=== PATIENT | female | born 1990 | race Caucasian/White ===

== ENCOUNTER 2021-11-13 18:33 | Outpatient (CLI) | payer BC, OTHER, SELFPAY ==
[2021-11-13 21:34] LABS: TSH With Reflex to FT4* 0.912 uIU/mL (0.270-4.200)
[2021-11-15 21:08] LABS: Estradiol Premenol Female 110 pg/mL
[2021-11-15 23:57] LABS: Prolactin 9.8 ng/mL (2.8-29.2)
[2021-11-16 01:15] LABS: Follicle Stimulating Hormone 8.3 IU/L
[2021-11-22 11:32] LABS: Sex Hormone Binding Globulin 24 nmol/L (25-122); Testosterone, Free LC-MS/MS 16.8 pg/mL (0.8-7.4); Testosterone, LC-MS/MS 86 ng/dL (9-55)
== END 2021-11-13 18:34 | disposition home or self-care (01) ==
PROVIDERS: Visit Provider Physician Assistant
DX: N91.2 Amenorrhea, unspecified (principal); E66.9 Obesity, unspecified
CPT/HCPCS: 82670; 83001; 84146; 84270; 84402; 84403; 84443

== ENCOUNTER 2021-11-15 08:57 | Outpatient (CLI) | payer BC, OTHER, SELFPAY ==
--- NOTE | 2021-11-15 09:15 | CRLHL7_ITS ---
For Patients: As a result of the Century Cures Act, medical imaging exams and procedure reports are released immediately into your electronic medical record. You may view this report before your referring provider. If you have questions, please contact your health care provider. INDICATION: AMENORRHEA COMPARISON: none TECHNIQUE: 2D gay scale and color Doppler images were acquired of the pelvis using a transabdominal and transvaginal approach. FINDINGS: Sonographic images demonstrate a normal size and smooth outer contour of the uterus. Uterus measures 8.6 cm in length by 4.8 cm in AP diameter by 4.5 cm in transverse dimension. The myometrium has a normal uniform echotexture. Intrauterine device located within the endometrial canal. A small cervical nabothian cyst is incidentally noted. The right ovary measures 3.7 x 2.7 x 2.6 cm in size and the left ovary measures 3.4 x 2.4 x 2.4 cm. The ovaries demonstrate normal arterial and venous blood flow on color Doppler analysis. There are no suspicious fluid collections within the cul-de-sac. IMPRESSION: Intrauterine device is located in good position within the endometrial canal. Dictated by Piyush Drake MD @ 11/15/2021 10:36:31 AM (Electronically Signed)
--- OUTSIDE RECORDS SUMMARY | 2021-11-21 03:12 | XMS_ITS | Encounter Summary ---
:1990 Author Organization [facility] Address [address] [place] [address] Care Team Providers Name Role Phone Gabrielle Jara M.D. Primary Care Provider Reason for Visit Reason Comments Follow-up Outpatient (Routine) - Closed Specialty Diagnoses / Procedures Referred By Contact Refer red To Contact Obstetrics and Kristine Gonzalez, CUTTER ALUMIN[employer] SHEET, [facility] Gynecology [address] [phone] Referral ID Status Reason Start Date Expiration Date Visits Requ ested Visits Authorized [id number] Closed 05/24/2021 05/24/2022 1 1 Encounter Details Date Type Department Care Team Description 08/02/2021 Office Visit Department of Kristine Gonzalez, Surveillance Intrauterine Device (Primary Dx); Obstetrics and TREVER, [facility] Secondary Amenorrhea Gynecology in [address] [address] [place], [place] [phone] (Work) [phone] Social History Tobacco Use Types Packs/Day Years [...] Pulse 81 08/02/2021 2:11 PM CDT Temperature - - Respiratory Rate - - Oxygen Saturation - - Inhaled Oxygen Concentration - - Weight - - Height - - Body Mass Index - - documented in this encounter Progress Notes Kristine Gonzalez, TREVER, C.N.P. - 08/02/2021 2:15 PM CDT SUBJECTIVE CHIEF COMPLAINT/REASON FOR VISIT Chief Complaint Patient presents with ??? Follow-up HISTORY OF PRESENT ILLNESS Cherry is a 31 y.o. female here for IUD check. She has had the ParaGard IUD in place now for 3 months. She does not have any cramping or pain. Is doing well with the IUD. She has not, however, had aperiod since the IUD was placed. She has no symptoms of . Did have symptoms like she was going to get her period once or twice, but nothing. She has not taken a home test. She was using OCPS prior to the IUD placement, regular menses with the OCPs. She wanted off of hormones due to mood instability. She does see a therapist as well, but is feeling that her moods are very stable at this time. PROBLEM LIST: Patient Active Problem List Diagnosis ??? Atrophic Kidney ??? Hydronephrosis ??? Obstruction Ureteral Congenital ??? Obstruction Ureter ??? Surveillance Intrauterine Device No Known Allergies OBJECTIVE VITAL SIGNS BP 130/87 Pulse 81 PHYSICAL EXAMINATION General: No apparent distress. STONE FINISHER: External Genitalia : No lesions. BUS: No lesions. Vagina: Normal appearing discharge, no lesions. Pelvic Floor: Nontender. Bladder: Not enlarged, nontender. Cervix: No lesions, no bleeding, IUD strings visible. no cervical motion tenderness. Uterus: anteverted, not enlarged nor tender. Adnexa: Ovaries not enlarged nor tender. Anus: no hemorrhoids, no lesions. Rectovaginal Exam: Not indicated. ASSESSMENT / PLAN #1 Surveillance Intrauterine Device IUD strings noted with exam. Pelvic exam normal Secondary amenorrhea since IUD placement. I suspect that the OCP use was effectively causing a monthly withdrawal bleed. (She remembers regular menses prior to OCP use though) test today. Rx given for provera withdrawal test. Consider use every 1-3 months ongoing if effective. She will message me through the patient online services portal with results Consider additional workup as needed. #2 Secondary Amenorrhea - Test, POCT, Urine (lab) Other orders - medroxyPROGESTERone (PROVERA) 5 mg tablet; Take 1 tablet (5 mg total) by mouth daily for 7 days., Starting Thais 08/02/2021, Until Thais 08/09/2021, Normal documented in this encounter Plan of Treatment Not on filedocumented as of this encounter Procedures Procedure Name Priority Date/Time Associated Diagnosis Comme nts TEST, Routine 08/02/2021 2:40 PM Secondary Amenorrhe a Results for this POCT, U (LAB) CDT procedure are in the results section. documented in this encounter Results Test, POCT, Urine (lab) (08/02/2021 2:40 PM CDT) P athologist Signature Negative 08/02/2021 CNFL Test, POCT, U 3:10 PM CDT Specimen Anatomical Collection Method Collection Time Receive d Time (Source) Location / / Volume Laterality Urine (Urine, 08/02/2021 2:40 PM 08/03/19 2:54 Clean Catch) CDT PM CDT EVELIO Hernández APRN- LAB POCT ORDERABLES - DEVIC E Performing Organization Address City/State/ZIP Code Phon e Number [facility]- [address] [place] [id number] [place] [address] System [address] documented in this encounter Visit Diagnoses Diagnosis Surveillance Intrauterine Device - Prima ry Secondary Amenorrhea documented in this encounter Care Teams Bounty Hunter Relationship Specialty Start Date End Date Gabrielle Jara M.D. PCP - General Family Medicine 10/04/[address] [place] [address] documented as of this encounter
== END 2021-11-15 08:58 | disposition home or self-care (01) ==
LOC: US 08:58
PROVIDERS: Visit Provider Physician Assistant
DX: N91.2 Amenorrhea, unspecified (principal)
CPT/HCPCS: 76830; 76856

== ENCOUNTER 2021-11-15 18:50 | Outpatient (CLI) | payer BC, OTHER, SELFPAY ==
[2021-11-15 12:42] LABS: Cholesterol* 179 mg/dL (90-199)
[2021-11-15 12:43] LABS: Glucose* 94 mg/dL (60-115); HDL Cholesterol* 34 mg/dL (>=50); LDL Cholesterol Calculated 118 mg/dL (<100); Triglycerides* 135 mg/dL (40-149)
[2021-11-19 10:31] LABS: 17-Hydroxyprogesterone HPLC 96.08 ng/dL (<=206.00)
--- OUTSIDE RECORDS SUMMARY | 2021-11-21 03:02 | XMS_ITS | Encounter Summary ---
:1990 Author Organization [facility] Address [address] [place] [address] Care Team Providers Name Role Phone Gabrielle Jara M.D. Primary Care Provider Encounter Details Date Type Department Care Team Description 03/10/2020 Orders Only [facility] - Gabrielle Carrion M.D. [address] [facility] [address] [facility] [address] [place] [address] JAE KAYE [address] [phone] Social History Tobacco Use Types Packs/Day Years Used Date Smoking Tobacco: Former Smokeless Tobacco: Never Alcohol Use Standard Drinks/Week Comments Yes 0 (1 standard drink = 0.6 oz pure alcoho l) Holidays, 3 times monthly Alcohol Habits Answer Date Recorded How often do you have a drink containing Not asked alcohol? How many drinks containing alcohol do you Not asked have on a typical day when you are drinking? How often do you have six or more drinks on Not asked one occasion? Comment: Holidays, 3 times monthly 08/10/2018 Sex Assigned at Date Recorded Not on file documented as of this encounter Plan of Treatment Not on filedocumented as of this encounter Visit Diagnoses Not on filedocumented in this encounter Care Teams Interlocking And Signal Mechanic Relationship Specialty Start Date End Date Gabrielle Jara M.D. PCP - General Family Medicine 10/04/13 [address] [place] [phone] documented as of this encounter
--- OUTSIDE RECORDS SUMMARY | 2021-11-21 03:02 | XMS_ITS | Encounter Summary ---
:1990 Author Organization [facility] Address [address] [place] [address] Care Team Providers Name Role Phone Gabrielle Jara M.D. Primary Care Provider Reason for Referral Outpatient (Routine) - Closed Specialty Diagnoses / Procedures Referred By Contact Refer red To Contact Family Medicine Gabrielle Jara M. D. [facility] [address] [place] [phone] Referral ID Status Reason Start Date Expiration Date Visits Requ ested Visits Authorized [id number] Closed 11/29/2019 11/28/2020 1 1 Encounter Details Date Type Department Care Team Description 11/29/2019 Orders Only [facility] Gabrielle Jara M.D. [address] [place] [phone] (Wo rk) Social History Tobacco Use Types Packs/Day Years [...] as of this encounter Plan of Treatment Scheduled Referrals Name Type Priority Associated Diagnoses Order S chedule Family Medicine Outpatient Referral Routine Expec miranda: office visit 12/13/2019, (clinic) Expires: 11/28/2022 documented as of this encounter Visit Diagnoses Not on filedocumented in this encounter Care Teams Compensation Supervisor Relationship Specialty Start Date End Date Gabrielle Jara M.D. PCP - General Family Medicine 10/04/13 [address] [place] [address] documented as of this encounter
--- OUTSIDE RECORDS SUMMARY | 2021-11-21 03:02 | XMS_ITS | Encounter Summary ---
:1990 Author Organization [facility] Address [address] [place] [address] Care Team Providers Name Role Phone Gabrielle Jara M.D. Primary Care Provider Reason for Visit Reason Comments Med Refill Encounter Details Date Type Department Care Team Description 03/01/2019 Refill Department of Obstetrics and Gonzalez, Kristine Cortez APRN, Med Refill Gynecology in [address] [place] [phone] [place] [address] [phone] Social History Tobacco Use Types Packs/Day Years [...] on filedocumented in this encounter Care Teams Clinical Data Coordinator Relationship Specialty Start Date End Date Gabrielle Jara M.D. PCP - General Family Medicine 10/04/13 [address] [place] [address] documented as of this encounter
--- OUTSIDE RECORDS SUMMARY | 2021-11-21 03:02 | XMS_ITS | Encounter Summary ---
:1990 Author Organization [facility] Address [address] [place] [address] Care Team Providers Name Role Phone Gabrielle Jara M.D. Primary Care Provider Reason for Visit Reason Comments Sinusitis Encounter Details Date Type Department Care Team Description 01/22/2021 Nurse Triage Department of [facility], Caron James Medicine, [facility] MPedroSDeepali, R. N. [facility], in [address] [place] [address] [address] [address] [place] [address] [phone] Social History Tobacco Use Types Packs/Day Years [...] on file documented as of this encounter Miscellaneous Notes Telephone Encounter - Rona Sun R.N. - 01/22/2021 3:19 PM CDT Patient notified. Telephone Encounter - Peyton Mendoza M.S.N., R.N. - 01/22/2021 9:47 AM CDT Chief Complaint / Reason for Call Patient is a 30 y.o. female calling regarding Sinusitis. Assessment Concern: Thick green nasal drainage, pressure in the forehead and cheekbones. Started 2 weeks ago, seemed to be improving and then worse again. Present for: 2 weeks Home cares tried: Nasal saline spray, humidifier, Tylenol, Ibuprofen Calling to request: Treatment The recommended disposition is other. 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 documented in this encounter Plan of Treatment Not on filedocumented as of this encounter Visit Diagnoses Not on filedocumented in this encounter Care Teams Iron [employer] Steel Work Supervisor Relationship Specialty Start Date End Date Gabrielle Jara M.D. PCP - General Family Medicine 10/04/13 [address] [place] [address] documented as of this encounter
--- OUTSIDE RECORDS SUMMARY | 2021-11-21 03:02 | XMS_ITS | Encounter Summary ---
:1990 Author Organization [facility] Address [address] [place] [address] Care Team Providers Name Role Phone Gabrielle Jara M.D. Primary Care Provider Encounter Details Date Type Department Care Team Description 03/10/2020 Orders Only [facility] - Sulma Domínguez [address] [facility] [phone] (W ork) [address] [place] [address] Social History Tobacco Use Types Packs/Day Years [...] on filedocumented in this encounter Care Teams Truck Safety Inspector Relationship Specialty Start Date End Date Gabrielle Jara M.D. PCP - General Family Medicine 10/04/13 [address] [place] [address] documented as of this encounter
--- OUTSIDE RECORDS SUMMARY | 2021-11-21 03:02 | XMS_ITS | Clinical Summary ---
:1990 Author Organization [facility] Address [address] [place] [address] Care Team Providers Name Role Phone Gabrielle Jara M.D. Primary Care Provider Source Comments Patient records contain information from all sites at [facility]. For routine questions regarding patient records, call [phone] during business hours, M-F 8:00 AM - 5:00 PM Central Time. Record requests for emergency care only can be directed to [phone] at any time.[facility] Allergies No known active allergies Medications Medication Sig Dispensed Refills Start Date End Date Status acetaminophen (TYLENOL) Take 2 capsules 0 09/12/2018 Active 500 mg capsule (1,000 mg total) by mouth every 6 (six) hours as needed for pain. Can forklift picker over the counter cyanocobalamin (VITAMIN Take 500 mcg by 0 Active B12) 500 mcg tablet mouth. magnesium 250 mg tablet Take 1 tablet by 0 Active mouth. B complex-vitamin (SUPER Take 1 capsule by 0 Active B-50) capsule mouth daily. ergocalciferol (DRISDOL) Take 50,000 Units 0 Active 50,000 Unit capsule by mouth once a week. ascorbic acid, vitamin Take 700 mg by 0 Active C, (VITAMIN C) 1,000 mg mouth 2 (two) tablet times a day. zinc acetate (GALZIN) 25 Take 30 mg by 0 Active mg (zinc) capsule mouth daily. copper (PARAGARD) IUD 1 each by 0 Active intrauterine route continuously. medroxyPROGESTERone Take 1 tablet (5 7 tablet 0 08/02/2021 Active (PROVERA) 5 mg tablet mg total) by mouth daily for 7 days. 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 Hydronephrosis 08/05/2018 Resolved Problems Problem Noted Date Resolved Date Leak Amniotic Fluid 11/04/2014 03/03/2018 Pain Back From 11/04/2014 03/03/2018 Subdermal Implantable Contraceptive Removal 10/24/2013 03/03/2018 Abuse Tobacco Smoking 12/31/2011 03/03/2018 Overview: unknown date of dx Headache Unspecified 06/11/2011 03/03/2018 Acne 02/13/2011 03/03/2018 Infection Kidney 01/18/2011 03/03/2018 Overview: function 12% date unknown Incomplete Bladder Emptying 03/15/2004 03/03/2018 Immunizations Name Administration Dates Next Due DTaP (Infanrix, [employer]) 11/16/1996 HepB, Unspecified 06/11/1993, 01/10/1993, 11/27/1992 IPV 08/19/1996 Influenza Split 01/09/2013 Influenza, Unspecified 01/10/2012 MMR 08/12/1996 Tdap 09/20/2014, 07/27/2006 Family History Medical History Relation Name Comments No Known Problems Father Urolithiasis Father's Brother Kidney cancer Grandfather Prostate cancer Grandfather Depression Mother Anesthesia problems Neg Hx Relation Name Status Comments Father Father's Brother Grandfather Mother Uncle Social History Tobacco Use Types Packs/Day Years [...] Assigned at Date Recorded Not on file Last Filed Vital Signs Vital Sign Reading Time Taken Comments Blood Pressure 130/87 08/02/2021 2:11 PM CDT Pulse 81 08/02/2021 2:11 PM CDT Temperature 36.4 ??C (97.5 ??F) 03/08/2020 9:54 AM AUTOMOTIVE SALES REPRESENTATIVE Respiratory Rate 16 09/12/2018 8:00 AM CDT Oxygen Saturation 97% 09/12/2018 8:00 AM CDT Inhaled Oxygen Concentration - - Weight 118 kg (260 lb 5.8 oz) 05/11/2019 10:33 AM AUTOMOTIVE SALES REPRESENTATIVE Height 179 cm (5' 10.47) 09/10/2018 10:06 AM CDT Body Mass Index 36.86 09/10/2018 10:06 AM CDT Plan of Treatment Health Maintenance Due Date Last Done Comments Hepatitis C Screening 1990 COVID-19 Vaccine (#1) 1990 Depression Screening 04/14/2021 (Annual PHQ-2) Influenza Vaccine (#1) 2022 01/09/2013, 01/09/2013, 01/10/2012, Additional history exists DTaP,Tdap,and Td Vaccines 09/20/2024 09/20/2014, 07/27/2006 , (4 - Td or Tdap) 11/16/1996 Cervical Cancer Screening 05/24/2026 05/24/2021, 05/24/2021 , 02/04/2017, Additional history exists Hepatitis B Vaccines Completed 06/11/1993, 01/10/1993, 11/27/1992 HIV Screening Completed 05/03/2014 Pneumococcal vaccine (0-64 Aged Out No lo nger eligible years) based on patient 's age to complete this topic Medical Devices Implanted Type Area Assistant Front Desk Manager Device Shelf Model / Identifier Expiration Serial / Lot Date Ear Tubes (E.G. Pe Tubes)-03/08/2020 Ear Tubes Left: Ear Medtronic 05/24/2027 / Implanted: Qty: 1 on 03/08/2020 by Doug Mackenzie M.D. (e.g. PE / Tubes) [id number] [facility] Adia Oliveira - [id number] Hardware Communication Science [id number] / Implanted: Qty: 1 on 09/10/2018 by Emil Villarreal M.D. at [facility] e.g. / pins/screws /rods [facility] [id number] - [id number] Ureteral Left: [place] 05/28/2021 [id number] / Implanted: Qty: 1 on 08/11/2018 by Jesus Alberto Lee M.D. at [facility] Stent Ureter Scientific / [id number] Insurance Payer Benefit Plan / Subscriber ID Effective Phone Address T ype Group Dates [place] [id number] 2018-Prese [id number] Medicaid HMO HEALTH [facility] [address] [place] [address] Advance Directives For more information, please contact: [phone] Latest Code Status on File Code Status Date Activated Date Inactivated Comments Full Code 09/10/2018 7:46 PM 09/12/2018 1:31 PM Full Code: Discussed Care Teams Flow Nurse Relationship Specialty Start Date End Date Gabrielle Jara M.D. PCP - General Family Medicine 10/04/[address] [place] [address]
--- OUTSIDE RECORDS SUMMARY | 2021-11-21 03:02 | XMS_ITS | Encounter Summary ---
:1990 Author Organization [facility] Address [address] [place] [address] Care Team Providers Name Role Phone Gabrielle Jara M.D. Primary Care Provider Reason for Visit Auth/Cert Specialty Diagnoses / Procedures Referred By Contact Refer red To Contact Diagnoses Obstruction Ureter Procedures CA LAPAROSCOPY PARTL NEPHRECTOMY Robotic-Assisted Nephrectomy - Simple Referral ID Status Reason Start Date Expiration Date Visits Requ ested Visits Authorized [id number] 1 1 Encounter Details Date Type Department Care Team Description 09/10/2018 - Hospital Encounter [facility] Emil Villarreal Obstructi on Ureter 09/12/2018 Hospital, Talon Antoine M.D. (Primary Dx) [place], [facility] [address] [facility], [place], [place] Floor [phone] [address] [facility] [phone] [place], [place] (Work) [phone] Social History Tobacco Use Types Packs/Day Years [...] on file documented as of this encounter Last Filed Vital Signs Vital Sign Reading Time Taken Comments Blood Pressure 148/92 09/12/2018 8:00 AM CDT Pulse 70 09/12/2018 8:00 AM CDT Temperature 36.7 ??C (98.1 ??F) 09/12/2018 8:00 AM CDT Respiratory Rate 16 09/12/2018 8:00 AM CDT Oxygen Saturation 97% 09/12/2018 8:00 AM CDT Inhaled Oxygen Concentration - - Weight 101 kg (222 lb 3.6 oz) 09/12/2018 12:23 AM CDT Height 179 cm (5' 10.47) 09/10/2018 10:06 AM CDT Body Mass Index 31.46 09/10/2018 10:06 AM CDT documented in this encounter Discharge Summaries Reyes Germain M.D. - 09/12/2018 8:59 AM CDT DISCHARGE SUMMARY BRIEF OVERVIEW Discharge Provider: Emil Villarreal M.D. Primary Care Providers: Gabrielle Jara M.D. (General) [address] [place] [phone] Primary Care Provider Primary Care Provider Other Providers: None Admission Date: 09/10/2018 Discharge Date: 09/12/18 PRINCIPAL DIAGNOSIS Obstruction Ureter SECONDARY DIAGNOSES Principal Problem: Obstruction Ureter Resolved Problems: * No resolved hospital problems. * Operative Procedures: Scheduled (Ge), Completed (Comp) or Canceled (Can) Case IDs Date Procedure Surgeon Location Status [id number] 09/10/18 Robotic-Assisted Nephrectomy, Simple. Emil Villarreal M.D. [facility] OR Comp DISCHARGE DISPOSITION Home or Self Care [1] ACTIVE ISSUES REQUIRING FOLLOW UP Fu with primary care going forward with blood pressure checks None OUTPATIENT FOLLOW UP No future appointments. TEST RESULTS PENDING AT DISCHARGE Pending Labs Order Current Status Renal Pathology In process DETAILS OF HOSPITAL STAY REASON FOR ADMISSION Obstruction Ureter Obstruction Ureter HOSPITAL COURSE SURGICAL PROCEDURE: A left simple nephrectomy was performed without complication. HOSPITAL COURSE: Following the procedure, the patient was transferred to general floor care in stable condition. The post-operative course was otherwise uneventful. By the time of dismissal, the patient was ambulatory,tolerating oral intake with no nausea / vomiting, and had pain controlled with oral medications. DISMISSAL EXAM GENERAL: NAD ABD: SOFT, ND, NT CONSULTS ORDERED DURING THIS ADMISSION None CONDITION AT DISCHARGE good Discharge instructions were provided to the patient and caregiver(s). documented in this encounter Discharge Instructions Discharge InstructionsKsenia Jaimes - 09/11/2018 6:32 AM CDT You were discharged from the [facility] Urology Surgery - [facility]. Please identify this service name if you call with questions after hospitalization. documented in this encounter Medications at Time of Discharge Medication Sig Dispensed Refills Start Date End Date acetaminophen (TYLENOL) Take 2 capsules 0 019 500 mg capsule (1,000 mg total) by mouth every 6 (six) hours as needed for pain. Can waste picker over the counter sennosides (SENNA) 8.6 mg Take 1 tablet (8.6 30 tablet 0 10/12/2018 tablet mg total) by mouth daily. MARLISSA 0.15-0.03 mg per Take 1 tablet by 84 tablet 4 12/1403/01/2019 tablet mouth daily. oxyCODONE (ROXICODONE) 5 Take 1 tablet (5 mg 10 tablet 0 05/11/2019 mg immediate release total) by mouth tabletIndications: Acute every 6 (six) hours Pain as needed for severe pain or score 7-10 of 10 Indication: Acute Pain. oxyCODONE (ROXICODONE) 5 Take 1 tablet (5 mg 12 tablet 0 05/11/2019 mg immediate release total) by mouth tabletIndications: Acute every 6 (six) hours Pain Exception as needed for moderate pain or score 4-6 of 10 (take 10 mg for pain >6) Indication: Acute Pain Exception. documented as of this encounter Progress Notes Red Mccloud M.D. - 09/11/2018 7:51 AM CDT SUBJECTIVE Patient does endorse abdominal pain this am, especially when ambulating and sitting up in a chair. Denies fever, chills, nausea or vomiting. Denies flatus. Minimal p.o. intake overnight. VITAL SIGNS BP 140/83 Pulse 91 Temp 36.7 ??C Resp 16 Ht 179 cm Wt 98.8 kg LMP 07/15/2018 SpO2 96% BMI 30.84 kg/m?? EXAM: General: NAD Pulm: Non-labored breathing Abdomen: soft, appropriately tender : urine clear yellow Neuro: moves all 4 extremities LABS Lab Results Component Value Date NA 138 09/11/2018 K 4.7 09/11/2018 CL 101 09/11/2018 BUN 11 09/11/2018 HGB 13.7 09/11/2018 HCT 40.9 09/11/2018 WBC 12.1 (H) 09/11/2018 MICROBIOLOGY/CULTURE DATA Microbiology Results (last 30 days) Procedure Component Value - Date/Time Bacterial Culture, Aerobic + Susc, Urine [[id number]] Collected: 08/25/18 1458 Lab Status: Final result Specimen: Urine from Urine, Midstream Updated: 08/26/18 1240 Urine Culture No growth after 1 day of incubation. Assessment: Patient is POD# 1, s/p left robotic simple nephrectomy. Patient is doing well. Has been ambulating very much and has not eaten, although she did get up to the floor total later in the evening last night. PLAN: - Antibiotics: Periop antibiotics x3 doses. - DVT Prophylaxis: OOB to chair, mechanical prophylaxis - Drains: Lower quadrant JUDE drain - Pain Control: Oxy, Tylenol, Fentanyl PRN - Urine: Close I/Os - Diet: General - Fluids: IV lock when PO intake greater than 600 cc/day - Exercise: As tolerated, recommend ambulating 6x per day. - Disposition: DC tonight versus tomorrow. Will remove drain before dismissal. Please call [phone] during the day and [phone] after hours with questions/concerns. documented in this encounter H&P Notes Red Mccloud M.D. - 09/10/2018 12:02 PM CDT INTERVAL HISTORY AND PHYSICAL PRE-PROCEDURE UPDATE H&P reviewed. The patient was examined and there are no significant changes to the H&P. Red Mccloud M.D. Source Note - Ashly Fauste Lauryn Winter. - 08/25/2018 1:00 PM CDT SUBJECTIVE REFERRAL SOURCE The patient is being seen in consultation at the request of Isabelle Andrew P.A.-C. [address] [phone] HISTORY OF PRESENT ILLNESS Ms. Alcantara is a pleasant 28 y.o. female with a history of bladder infection as an infant, she was not hospitalized. In 2003, she had recurrent pyelonephritis, she had a significant workup in here including VCUG which excluded reflux. US imaging showed a severely atrophied left kidney with hydronephrosis. DMSA scan which showed only 11% functioning of the left kidney. A that time, it was determined totake a watchful waiting approach to her recurrent infections. She was infection free from 2004 - 2016. Miss Alcantara developed sudden onset of severe left-sided flank pain, nausea and vomiting approximately 1 month ago. She presented to primary care office and was started her on antibiotics empirically for kidney infection. Urinalysis was unremarkable and urine culture was negative. A CT abdomen and pelvis with contrast was obtained on August 04, 2018 which showed severe left pelvocaliectasis and hydronephrosis. No hydroureter, obstructing stone or obstructing mass was identified. 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 Renal function remains normal with a creatinine of 0.79. She also has noticed decreased filling sensation, she feels she has to remind herself to void, she is not getting the usual urge sensation before void. She does feel she is able to fully empty. ?? Miss Alcantara was seen by at [facility] in [place] by Isabelle Andrew PA-C and had a cystoscopy, left retrograde pyelogram and ureteral stent placed on August 11, 2018. No defects of filling or obstruction were noted on retrograde pyelogram, except for at the ureteropelvic junction. At this point there was a very tight obstruction with marked hydronephrosis. A Lasix renal scan was obtained on August 12, 2018 revealing 6% function on the left and 94% function on the right. She was given the results by phone and was informed she likely would need a left nephrectomy but the final decision will[facility] at [facility]. ?? PAST MEDICAL/SURGICAL HISTORY MEDICAL Past Medical History: Diagnosis Date ??? Infection Kidney 01/18/2011 function 12% date unknown SURGICAL Past Surgical History: Procedure Laterality Date ??? RETROGRADE PYELOGRAM Circumferential 08/11/2018 Procedure: LEFT RETROGRADE PYELOGRAM WITH LEFT URETERAL STENT PLACEMENT; Surgeon: Jesus Alberto Velez M.D.; Location: [facility] OR ??? TONSILLECTOMY N/A 1997 Tonsillectomy ??? TYMPANOTOMY N/A 2007 Myringotomy MEDICATIONS Current Outpatient Prescriptions: ??? MARLISSA 0.15-0.03 mg per tablet, Take 1 tablet by mouth daily., Disp: 84 tablet, Rfl: 4 ??? oxyCODONE (ROXICODONE) 5 mg immediate release tablet, Take 1 tablet (5 mg total) by mouth every 6 (six) hours as needed for severe pain or score 7-10 of 10 Indication: Acute Pain., Disp: 10 tablet,Rfl: 0 ALLERGIES No Known Allergies SOCIAL HISTORY Social History Social History ??? Marital status: Spouse name: N/A ??? Number of children: 2 ??? Years of education: N/A Occupational History ??? 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 Social History Main Topics ??? Smoking status: Former Smoker ??? Smokeless tobacco: Never Used ??? Alcohol use Yes Comment: Holidays, 3 times monthly ??? Drug use: No ??? Sexual activity: Not on file FAMILY HISTORY Family History Problem Relation Age of Onset ??? Kidney cancer Grandfather ??? Prostate cancer Grandfather ??? Depression Mother ??? No Known Problems Father ??? Urolithiasis Father's Brother ??? Anesthesia problems Neg Hx OBJECTIVE PHYSICAL EXAMINATION General: resting comfortably in the chair Head: normocephalic, atraumatic Eyes: extraocular muscles intact with anicteric sclerae Lungs: non-labored respirations on room air Abdomen: Soft, nondistended, nontender Extremities: no edema Psych: appropriate mood and affect Neuro: ambulates with a normal gait Skin: no obvious skin lesions LABS Lab Results Component Value Date NA 139 08/04/2018 K 4.6 08/04/2018 CL 104 08/04/2018 BUN 15 08/04/2018 CO2 23 01/13/2017 HGB 14.2 08/04/2018 HCT 41.8 08/04/2018 WBC 8.6 08/04/2018 Lab Results Component Value Date CREATININE 0.79 08/04/2018 MICROBIOLOGY/CULTURE DATA Microbiology Results (last 30 days) Procedure Component Value - Date/Time Bacterial Culture, Aerobic + Susc, Urine [[id number]] Collected: 07/30/18 1009 Lab Status: Final result Specimen: Urine from Urine, Midstream Updated: 07/31/18 0909 Urine Culture Multiple organisms >10,000 cfu/mL present suggesting probable contamination IMAGING AND TESTS Nm Kidney With Lasix Result Date: 08/12/2018 Impression: IMPRESSION: 1. Split function: Left kidney 6%, right kidney 94%. 2. Normal right kidney.3. Poor left kidney flow, cortical transit and excretion. Ct Abdomen Pelvis With Iv Contrast Result Date: 08/04/2018 Impression: IMPRESSION: 1. Severe left pelvocaliectasis/hydronephrosis without hydroureter or obstructing ureteral stone. 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 Delayed left nephrogram and severe cortical atrophy. 2. No nephroureteral calculi on either side. No right hydronephrosis. ASSESSMENT / PLAN #1 Ureteral obstruction It was my pleasure to meet Ms. Alcantara along with Dr. Villarreal in clinic today. We reviewed her imaging together. We discussed in great detail that with 6% function of the left kidney our recommendation would be nephrectomy. She is in agreement with this. We discussed procedure of nephrectomy with her in great detail. She is in agreement to proceed. We have scheduled her for a left robotic simple nephrectomy. We discussed that she would be in the hospital for 1-2 days. We would recommend time off work for approximately 2 weeks. We have tentatively scheduled her for September 10, 2018. We again reviewed risksincluding bleeding, infection, and risk of damage to surrounding tissue/organs. We discussed risks of anesthesia including heart attack, stroke, blood clots, or . I informed her of the healthcare team, risk of exposure of the healthcare team, and risk of blood transfusion. She is in understandingof these risks and I have obtained a signed consent form from her. I reviewed with her the checklistfor the surgical patient. I informed her of the phone number to call for her surgical time, medication instructions, fasting instructions, and report location. I have ordered blood work for her to complete prior to her procedure. I have also ordered a urine culture. All of her questions and concerns have been answered at this time. She will call with further questions. She was given Dr. Villarreal business card today. PATIENT EDUCATION Ready to learn, no apparent learning barriers were identified; learning preferences include listening. Explained diagnosis and treatment plan; patient expressed understanding of the content. Discussed the risks, benefits, alternatives, and the necessity of other members of the healthcare team participating in the procedure. All questions answered and consent given. documented in this encounter Nursing Notes Mitzy Abdul R.N., RosaS.R.N. - 09/11/2018 7:09 PM CDT Shift Goals: Clinical Goals for the Shift: pain management, ambulate x3, increase oral intake Identify possible barriers to meeting goals/advancing plan of care: dizziness End of Shift Summary: Patient exceeded ambulation goal and even went to the patio. She had a slow start due to feeling dizzy and faint when sitting in the chair and having a orthostatic drop in blood pressure, but asa the day progressed she was tolerating activity well with stable vital signs. Pain con trol was progressing with using heat and ordered pain medications. She was also able to eat and drink without nausea. PT VERBALIZES/DEMONSTRATES ADEQUATE COMFORT LEVEL OR BASELINE Progressing documented in this encounter OR Notes Op Note - Red Mccloud M.D. - 09/10/2018 3:13 PM CDT FULL OP NOTE Procedure(s) (LRB): Robotic-Assisted Nephrectomy, Simple. (Left) Surgeon(s) and Role: * Emil Villarreal M.D. - Primary * Red Mccloud M.D. - Radiologic Technology Instructor Anesthesia Type: General Pre-Operative Diagnosis: Obstruction Ureter [N13.5]. Post-Operative Diagnosis: Same as pre-operative diagnosis Findings: 1. Robotic left simple nephrectomy 2. 2 arteries and one vein Complications: None Description of Procedure: After obtaining informed consent, the patient was brought to the operating room. She was placed under general anesthesia. She was positioned in lateral decubitus. She was prepped and draped in a standard sterile fashion. Next, a periumbilical incision was made. Veress needle was used to obtain pneumope ritoneum after confirmation with drop test. A 12 mm step trocar was placed in the umbilical incisionfor the assist port. Three 8 mm robotic trocars were placed in the midclavicular line, one at the costal margin, another in the mid abdomen and the final trocar in the left lower quadrant The robot was docked. The line of Toldt was incised and the left colon mobilized medially. We wound the left gonadal vein and ureter. Gonadal vein was traced to the renal hilum. Two renal arteries and one renal vein were identified and the these were dissected out. There was significant reaction from stent and prior pyelonephritis episodes. The inferior lower pole artery was taken with the robotic stapler. We dissected further cephalad where we encountered the vein and superior artery. These were taken with the robotic stapler. Superior and lateral attachments were taken as well as tail of Gerota's. Stent was grasped and removed in its entirety. Excellent hemostasis was obtained. The specimen was placed in a bag was extracted. Chapo Jaramillo drain was placed in inferior-most robot trocar site, secured to skin with 3-0 nylon suture, and left to bulb suction drainage The fascia was closed with 2-0 vicryl and the incisions infiltrated with 0.25% Marcaine and Exparel mixture. Patient was extubated and taken to the PACU in good condition. Specimens ID Type Source Tests Collected by Time A : Left kidney Tissue Kidney, Left RENAL PATHOLOGY Emil Villarreal M.D. 09/10/2018 1721 Drains Closed/Suction Drain Left LUQ Bulb 15 Fr. (Active) Dressing Status Clean;Dry;Intact 09/10/2018 7:03 PM Dressing Type Occlusive 09/10/2018 7:03 PM Drainage Description Serosanguinous 09/10/2018 7:03 PM Suction Bulb 09/10/2018 7:03 PM Status To bulb suction 09/10/2018 7:03 PM Output (mL)- Drain 0 mL 09/10/2018 7:03 PM Indwelling Urinary Catheter Latex 16 Fr. (Active) Site Assessment Clean 09/10/2018 7:00 PM Collection Container Standard drainage bag 09/10/2018 7:00 PM Securement Method Securing device 09/10/2018 7:00 PM Output (mL)- Urine 175 mL 09/10/2018 8:42 PM [REMOVED] GI Tubes (Adults) Orogastric (Removed) Estimated Blood Loss 15 mL Implants Implant Name Type Inv. Item Serial No. Oral Surgeon Lot No. LRB No. Used Action RODO LIU MD - [id number] Hardware e.g. pins/screws/rods RODO LIU MD [employer] Left 1Implanted Red Mccloud M.D. Brief Op Note - Red Mccloud M.D. - 09/10/2018 3:13 PM CDT BRIEF OP NOTE Procedure(s) (LRB): Robotic-Assisted Nephrectomy, Simple. (Left) Surgeon(s) and Role: * Emil Villarreal M.D. - Primary * Red Mccloud M.D. - Radiologic Technology Instructor Anesthesia Type: General Pre-Operative Diagnosis: Obstruction Ureter [N13.5]. Brief Operative Note Details Specimens ID Type Source Tests Collected by Time A : Left kidney Tissue Kidney, Left RENAL PATHOLOGY Emil Villarreal M.D. 09/10/2018 1721 Drains GI Tubes (Adults) Orogastric (Active) Closed/Suction Drain Left LUQ Bulb 15 Fr. (Active) Indwelling Urinary Catheter Latex 16 Fr. (Active) Estimated Blood Loss 15 mL Implants Implant Name Type Inv. Item Serial No. Oral Surgeon Lot No. LRB No. Used Action RODO LIU MD - [id number] Hardware e.g. pins/screws/rods RODO LIU MD [employer] Left 1Implanted Red Mccloud M.D. documented in this encounter Miscellaneous Notes Hospital Course - Reyes Germain M.D. - 09/11/2018 12:10 AM CDT SURGICAL PROCEDURE: A left simple nephrectomy was performed without complication. HOSPITAL COURSE: Following the procedure, the patient was transferred to general floor care in stable condition. The post-operative course was otherwise uneventful. By the time of dismissal, the patient was ambulatory,tolerating oral intake with no nausea / vomiting, and had pain controlled with oral medications. DISMISSAL EXAM GENERAL: NAD ABD: SOFT, ND, NT documented in this encounter Plan of Treatment Not on filedocumented as of this encounter Procedures Procedure Name Priority Date/Time Associated Diagnosis Comme nts ADULT OXYGEN THERAPY Routine 09/11/2018 8:02 AM CDT PULSE OXIMETRY, Routine 09/11/2018 8:02 AM CONTINUOUS CDT CBC WITHOUT Routine 09/11/2018 12:21 Results for this DIFFERENTIAL, B AM CDT procedure ar e in the results section. BASIC METABOLIC Routine 09/11/2018 12:21 Results for this PANEL, S/P AM CDT procedure are i n the results section. ADULT OXYGEN THERAPY Routine 09/10/2018 8:01 PM CDT PULSE OXIMETRY, Routine 09/10/2018 8:01 PM CONTINUOUS CDT ADULT OXYGEN THERAPY Routine 09/10/2018 7:46 PM CDT ADULT OXYGEN THERAPY Routine 09/10/2018 7:46 PM CDT ADULT OXYGEN THERAPY Routine 09/10/2018 7:46 PM CDT PULSE OXIMETRY, Routine 09/10/2018 7:46 PM CONTINUOUS CDT PULSE OXIMETRY, Routine 09/10/2018 7:46 PM CONTINUOUS CDT PULSE OXIMETRY, Routine 09/10/2018 7:46 PM CONTINUOUS CDT RENAL PATHOLOGY Routine 09/10/2018 5:21 PM Result s for this CDT procedure are i n the results section. ROBOTIC-ASSISTED 09/10/2018 1:50 PM Obstruction Ureter NEPHRECTOMY - SIMPLE CDT documented in this encounter Results (ABNORMAL) CBC without Differential (09/11/2018 12:21 AM CDT) [facility] Method Time Signature Hemoglobin 13.7 11.6 - 09/11/2018 [facility] 15.0 g/dL 1:15 AM CDT LABORATORIES - [facility] Hematocrit 40.9 35.5 - 09/11/2018 [facility] 44.9 % 1:15 AM CDT [facility]ATORIES - [facility] Erythrocytes 4.31 3.92 - 09/11/2018 [facility] 5.13 1:15 AM CDT LABORATORIES - x10(12)/L [facility] MCV 94.9 78.2 - 09/11/2018 [facility] 97.9 fL 1:15 AM CDT [facility]ATORIES - [facility] RBC Distrib 12.4 12.2 - 09/11/2018 [facility] Width 16.1 % 1:15 AM CDT [facility] - [facility] Platelet Count 268 157 - 371 09/11/2018 [facility] x10(9)/L 1:15 AM CDT [facility] - [facility] Leukocytes 12.1 (H) 3.4 - 9.6 09/11/2018 [facility] x10(9)/L 1:15 AM CDT [facility] - [facility] Specimen Anatomical Collection Method Collection Time Receive d Time (Source) Location / / Volume Laterality Blood (Blood, 09/11/2018 12:21 09/11/2018 1:04 Venous) AM CDT AM CDT Red Mccloud M.D. LAB BLOOD ADD-ON Performing Organization Address City/State/ZIP Code Phon e Number [facility] - [address] [place], [place] [address] [facility] Basic Metabolic Panel (09/11/2018 12:21 AM CDT) P athologist Signature Potassium, S 4.7 3.6 - 5.2 09/11/2018 [facility] mmol/L 1:41 AM CDT [facility] - [facility] Sodium, S 138 135 - 145 09/11/2018 [facility] mmol/L 1:41 AM CDT [facility] - [facility] Chloride, S 101 98 - 107 09/11/2018 [facility] mmol/L 1:41 AM CDT [facility] - [facility] Bicarbonate, S 22 22 - 29 09/11/2018 [facility] mmol/L 1:41 AM CDT [facility] - [facility] Anion Gap 15 7 - 15 09/11/2018 [facility] 1:41 AM CDT [facility] - [facility] BUN (Blood 11 6 - 21 09/11/2018 [facility] Urea mg/dL 1:41 AM CDT LABORATORIES - Nitrogen), S [facility] Creatinine, S 0.78 0.59 - 09/11/2018 [facility] 1.04 mg/dL 1:[address] [facility] eGFR-Non >90 >=60 09/11/2018 [facility] Black/ mL/min/BSA 1:41 AM CDT LABORATORIES [facility] Comment: ----ADDITIONAL INFORMATION---- Estimated GFR calculated using the 2009 CKD_EPI creatinine equation. eGFR-Black/ >90 >=60 mL/min/BSA 09/11/2018 1:41 [facility] CDT [facility]ATOR[facility] Comment: ----ADDITIONAL INFORMATION---- Estimated GFR calculated using the 2009 CKD_EPI creatinine equation. Calcium, Total, S 8.8 8.6 - 10.0 mg/dL 09/11/2018 1:[address] [facility] CDT LABORATORIES [facility] Glucose, S 110 70 - 140 mg/dL 09/11/2018 1:[address] [facility] CDT LABORATORIES [facility] S Specimen Anatomical Collection Method Collection Time Receive d Time (Source) Location / / Volume Laterality Blood (Blood, 09/11/2018 12:21 09/11/2018 1:05 Venous) AM CDT AM CDT Red Mccloud M.D. LAB BLOOD ADD-ON Performing Organization Address City/State/ZIP Code Phon e Number [facility]IES - [address] [id number] [facility] Renal Pathology (09/10/2018 5:21 PM CDT) Component Value Ref Test Analysis Performed Pathologis t Range Method Time At Signature Gross Description A. ??Received fresh labeled left kidney is a 68 gram, 8 x 09/18/2018 7.6 x 2.6 cm morcellated kidney. ??The ureter is 6 cm in 11:08 AM length by 0.5 cm in diameter and from the kidney. CDT The renal vein is 0.5 cm in diameter and the renal artery is 0.2 cm in diameter, which are grossly patent. ??The kidney surface is smooth and moderately disrupted and with marked adhesions. ??The cortex is 0.5 cm thick and shows an indistinct cortico-medullary junction. ??The renal pelvis and calyces are markedly dilated with no evidence of obstruction. ??No masses identified. ??Tissue collected for potential future ancillary studies. ??The specimen is photographed. ??Senior Dot Net Developer tissue submitted for permanent sections only. ??Grossed by AMM. Material Received A. : Left kidney 09/18/2018 11:08 AM CDT Report Kyle Jean Baptiste M.D. [phone] 09/18/2018 electronically I verify that I have examined all relevant slides/ma terials 11:08 AM signed by for the specimen(s) and rendered or confirmed the diagnosis. CDT Seen in consultation with: ??Melita Vásquez M.D. [phone] 09/18/2018 11:08 AM CDT Disclaimer This test was developed and its performance characteri [facility] 09/18/2018 determined by [facility] in a manner consistent with CLIA 11:08 AM requirements. This test has not been cleared or approved by CDT the U.S. Food and Drug Administration. 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 ??2) Benign smooth muscle CDT proliferation. ??See comment. COMMENT Section A4 is stained with PAS to assist in the interpretation of the pathologic findings. ??Immunostains were performed on block A4 and show staining of the cells of interest with SMA, and negative reactivity with melan A and HMB-45. ??These findings argue against angiomyolipoma. The overall morphology and immunophenotype is consistent with a benign smooth muscle proliferation, likely reactive. Specimen Anatomical Collection Method Collection Time Receive d Time (Source) Location / / Volume Laterality Biopsy 09/10/2018 5:21 PM 9 6:20 CDT PM CDT Narrative This result has an attachment that is no t available. Emil Villarreal M.D. LAB PATH RENAL ORDERABLES Performing Organization Address City/State/ZIP Code Phon e Number [facility] - [address] [place], [place] [address] [facility] documented in this encounter Visit Diagnoses Diagnosis Obstruction Ureter - Primary documented in this encounter Admitting Diagnoses Diagnosis Obstruction Ureter documented in this encounter Administered Medications Inactive Administered Medications - up to 3 most recent administrations Medication Order MAR Action Action Date Dose Rate Site acetaminophen tablet 1,000 mg Given 09/10/2018 1:29 PM CDT 1,000 mg (TYLENOL) 1,000 mg, oral, Once, On Thais 09/10/18 at 1330, For 1 dose, Pre-Op, PreOp give in preprocedural area. acetaminophen tablet 1,000 mg (TYLENOL) Given 09/12/2018 8:01 AM CDT 1,000 mg 1,000 mg, oral, Every 6 hours, First dose on Thais 09/10/18 at 2000 Given 09/12/2018 12:23 AM CDT 1,000 mg Given 09/11/2018 8:17 PM CDT 1,000 mg benzocaine-menthol 15-3.6 mg per lozenge 1 Given 09/11 8:25 PM CDT 1 lozenge lozenge (CEPACOL) 1 lozenge, oral, As needed, sore throat, Starting on Thais 09/10/18 at 1945 ceFAZolin in dextrose (iso-os) IVPB 2 New Bag 09/11/2018 6:17 AM CDT 2 g 200 mL/hr g (ANCEF) 2 g, intravenous, at 200 mL/hr, Administer over 30 Minutes, Every 8 hours, First dose on Thais 09/10/18 at 2300, For 2 doses, Start within 8 hours of last IV dose. premix, Drug Monitoring Program: Pharmacist to adjust medication dosing based on indication and drug clearance factors., Indications: Prophylaxis, surgical New Bag 09/10/2018 10:54 PM CDT 2 g 200 mL/hr celecoxib capsule 400 mg (CeleBREX) Given 09/10/2018 1:29 PM CDT 400 mg 400 mg, oral, Once, On Thais 09/10/18 at 1330, For 1 dose, Pre-Op, PreOp give in preprocedural area. fentaNYL injection 25 mcg (SUBLIMAZE) Given 09/10/2018 6:42 PM CDT 25 mcg 25 mcg, intravenous, Every 2 min PRN, For pain 4 or greater (maximum 100 mcg). If max dose of Fentanyl is reached and if pain is greater than 4, discontinue Fentanyl: give Hydromorphone, Starting on Thais 09/10/18 at 1821, PACU (only) Given 09/10/2018 6:39 PM CDT 25 mcg Given 09/10/2018 6:34 PM CDT 25 mcg fentaNYL injection 25 mcg (SUBLIMAZE) 25 mcg, intravenous, Every 2 hour PRN, s evere pain or score 7-10 of 10, Starting on Fri09/11/18 at 0030 ketorolac injection 15 mg (TORADOL) Given 09/11/2018 11:52 AM CDT 15 mg 15 mg, intravenous, Every 6 hours PRN, moderate pain or score 4-6 of 10, severe pain or score 7-10 of 10, Starting on Fri09/11/18 at 0941, For 2 doses, Adult IV push rate: Over 15 seconds. Peds IV push rate: Over 1 minute. 60 mg dose only for IM, not recommended for IV., Drug Monitoring Program: Pharmacist to adjust medication dosing based on indication and drug clearance factors. lactated ringers Continued from OR 09/10/2018 8:00 PM 100 mL/hr 100 mL/hr 100 mL/hr, intravenous, CDT Continuous, Starting on Thais 09/10/18 at 1330, For 10 hours, Pre-Op, For total volume of 1,000 mL. Continued from OR 09/10/2018 6:15 PM CDT 100 mL/hr 100 mL/hr New Bag 09/10/2018 1:32 PM CDT 100 mL/hr 100 mL/hr NaCl 0.9% infusion New Bag 09/10/2018 10:52 PM CDT 100 mL/hr 100 mL/hr 100 mL/hr, intravenous, Continuous, Starting on Thais 09/10/18 at 2000, Continue IV fluids from operating room at 100 ml/hour until bag finished, then begin as ordered. Discontinue once PO intake >600 ml in 24 hours oxybutynin 24 hr tablet 10 mg (DITROPAN- XL) Given 09/10/2018 1:29 PM CDT 10 mg 10 mg, oral, Once, On Thais 09/10/18 at 1330, For 1 dose, Pre-Op, PreOp give in preprocedural area. Swallow whole. Do NOT crush, chew, or split tablet. oxyCODONE 12 hr tablet 20 mg (OxyCONTIN) Given 09/10/2018 1:29 PM CDT 20 mg 20 mg, oral, Once, On Thais 09/10/18 at 1330, For 1 dose, Pre-Op, PreOp give in preprocedural area. Swallow whole. Do NOT crush, chew, or split tablet. oxyCODONE IR tablet 5 mg (ROXICODONE) Given 09/10/2018 6:25 PM CDT 5 mg 5 mg, oral, Once, On Thais 09/10/18 at 1830, For 1 dose, PACU (only), Prior to discharge oxyCODONE IR tablet 5 mg (ROXICODONE) Given 09/12/2018 8:35 AM CDT 5 mg 5 mg, oral, Every 4 hours PRN, moderate pain or score 4-6 of 10, Starting on Fri09/11/18 at 0029 Given 09/12/2018 4:22 AM CDT 5 mg Given 09/12/2018 12:23 AM CDT 5 mg sennosides-docusate sodium 8.6-50 mg per Given 09/12/2018 8:01 A M CDT 1 tablet tablet 1 tablet (SENOKOT-S) 1 tablet, oral, 2 times daily, First dose on Thais 09/10/18 at 2100, Do not give if patient has diarrhea. Given 09/11/2018 8:17 PM CDT 1 tablet Given 09/11/2018 9:19 AM CDT 1 tablet documented in this encounter Active and Recently Administered Medications Times are shown in CDT. Scheduled Medication Order 09/10/2018 09/11/2018 09/12/2018 acetaminophen tablet 1,000 mg (TYLENOL) (COMPLETED) 13 29 (Given - Provider: Rosaline Villavicencio RDeepali) 1,000 mg, oral, Once, Thais 09/10/18 at 133 0, For 1 dose, Pre-Op, PreOp give in preprocedural area. acetaminophen tablet 1,000 mg (TYLENOL) 2105 (Given - Provider: Sada Dawkins RPedroN.) 0221 (Given - Provider: Dioni Johnson R.N.)0919 (Given - Provider: Kassandra Mazariegos R.N.)1348 (Given - Provider: Kassandra Mazariegos R.N.)2017 (Given - Provider: Dioni Johnson R.N.) 0023 (Given - Provider: Dioni Johnson RPedroN.)0801 (Given - Provider: Hawa Haque RDeepali) 1,000 mg, oral, Every 6 hours, First dose on Thais 09/10/18 at 2000 ceFAZolin in dextrose (iso-os) IVPB 2 g (ANCEF) (COMPL ETED) 2254 (New Bag - Provider: Sada Dawkins R.N.) 0617 (New Bag - Provider: Dioni Johnson R.N.) 2 g, intravenous, at 200 mL/hr, Administ er over 30 Minutes, Every 8 hours, First dose on Thais 09/10/18 at 2300, For 2 doses, Start within 8 hours of last IV dose. premix, Drug Monitoring Program: Pharmaci st to adjust medication dosing based on indication and drug clearance factors., Indications: Prophylaxis, surgical ceFAZolin injection 2 g (ANCEF) (CANCELED) 1400 (Due)1 509 (Given - Provider: Marleen Mendez APRN, TIPPLE ENGINEER) 2 g, intravenous, Every 8 hours, First d ose on Thais 09/10/18 at 1400, Intra-Op, [place] IV push over 3 minutes. Add 5 mL NS to 1 gram vial for a final concentration of 200 mg/mL., Drug Monitoring Progra m: Pharmacist to adjust medication dosin g based on indication and drug clearance factors., Indications: Prophylaxis, surgical celecoxib capsule 400 mg (CeleBREX) (COMPLETED) 1329 ( Given - Provider: Rosaline Villavicencio RDeepali) 400 mg, oral, Once, Thais 09/10/18 at 1330, For 1 dose, Pre-Op, PreOp give in preprocedural area. oxybutynin 24 hr tablet 10 mg (DITROPAN-XL) (COMPLETED ) 1329 (Given - Provider: Rosaline Villavicencio R.NPedro) 10 mg, oral, Once, Thais 519 at 1330, For 1 dose, Pre-Op, PreOp give in preprocedural area. Swallow whole. Do NOT crush, chew, or split tablet. oxyCODONE 12 hr tablet 20 mg (OxyCONTIN) (COMPLETED) 1 329 (Given - Provider: Rosaline Villavicencio R.NPedro) 20 mg, oral, Once, Thais 519 at 1330, For 1 dose, Pre-Op, PreOp give in preprocedural area. Swallow whole. Do NOT crush, chew, or split tablet. oxyCODONE IR tablet 5 mg (ROXICODONE) (COMPLETED) 1824 (Given - Provider: Yolande Luz R.N.) 5 mg, oral, Once, Thais 09/10/18 at 1830, F or 1 dose, PACU (only), Prior to discharge sennosides-docusate sodium 8.6-50 mg per tablet 1 tabl et (SENOKOT-S) 2105 (Given - Provider: Sada Dawkins R.N.) 09 (Given - Provider: Kassandra Mazariegos RPedroNPedro)2016 (Given - Provider: Job MensahNPedro) 08 (Given - Provider: Hawa Haque RDeepali) 1 tablet, oral, 2 times daily, First dos e on Thais 09/10/18 at 2100, Do not give if patient has diarrhea. Continuous Medication Order 09/10/2018 09/11/2018 09/12/2018 lactated ringers () 1332 (New Bag - Provider: Arash Villavicencio R.N.)1815 (Continued from OR - Provider: Yolande Luz R.N.)1999 (Continued from OR - Provider: Sada Dawkins R.N.)2253 (Stopped - Provider: Sada Dawkins R.N.) 100 mL/hr, intravenous, at 100 mL/hr, Co ntinuous, Starting Thais 09/10/18 at 1330, For 10 hours, Pre-Op, For total volume of 1,000 mL. NaCl 0.9% infusion (CANCELED) 2252 (New Bag - Provider: Sada Dawkins R.N.) 0950 (Stopped - Provider: Kassandra Mazariegos RDeepali) 100 mL/hr, intravenous, at 100 mL/hr, Co ntinuous, Starting Thais 09/10/18 at 2000, Continue IV fluids from operating room at 100 ml/hour until bag finished, then begin as ordered. Discontinue once PO intake >600 ml in 24 hours PRN Medication Order 09/10/2018 09/11/2018 09/12/2018 alum-mag hydroxide-simeth 200-200-20 mg/5 mL suspension 30 mL (M AALOX) 30 mL, oral, 4 times daily PRN, indigestion, Starting Thais 9 at 194 benzocaine-menthol 15-3.6 mg per lozenge 1 lozenge (CEPACOL) 2024 (Given - Provider: Dioni Johnson RPedroNPedro) 1 lozenge, oral, As needed, sore throat, Starting Thais 09/10/18 at 194 bisacodyl suppository 10 mg (DULCOLAX) 10 mg, rectal, Daily PRN, constipation, Starting Thais 09/10/18 at 194, Ordered sequence of administration: polyethylene glycol, then bisacodyl until BM achieved. bupivacaine 0.25 % (2.5 mg/mL) injection (MARCAINE) (C ANCELED) 1731 (Given - Provider: Red Mccloud M.D.) As needed, Starting Thais 09/10/18 at 173, Intra-Op fentaNYL injection 25 mcg (SUBLIMAZE) (CANCELED) 8 (Given - Provider: Yolande Luz, R.N.)183 (Given - Provider: Yolande Luz R.N.)183 (Given - Provider: Yolande Luz R.N.)184 (Given - Provider: Yolande Luz R.N.) 25 mcg, intravenous, Every 2 min PRN, Fo r pain 4 or greater (maximum 100 mcg). If max dose of Fentanyl is reached and if pain is greater than 4, discontinue Fentanyl: give Hydromorphone, Starting Thais 09/10/18 at 1821, PACU (only) fentaNYL injection 25 mcg (SUBLIMAZE) 25 mcg, intravenous, Every 2 hour PRN, s evere pain or score 7-10 of 10, Starting Fri09/11/18 at 0030 ketorolac injection 15 mg (TORADOL) () 1152 (Given - Provider: Kassandra Mazariegos R.NPedro) 15 mg, intravenous, Every 6 hours PRN, m oderate pain or score 4-6 of 10, severe pain or score 7-10 of 10, Starting Fri09/11/18 at 0941, For 2 doses, Adult IV push rate: Over 15 seconds. Peds IV push rat e: Over 1 minute. 60 mg dose only for IM , not recommended for IV., Drug Monitoring Program: Pharmacist to adjust medication dosing based on indication and drug clearance factors. NaCl 0.9 % bolus 500 mL 500 mL, intravenous, at 500 mL/hr, Admin ister over 1 Hours, As needed, Urinary output less than 30 mL/hour x 2 consecutive hours, Starting Thais 09/10/18 at 1945, May repeat x 1 within 48 hours. naloxone injection 0.2 mg (NARCAN) 0.2 mg, intravenous, As needed, respirat ory depression, Starting Thais 09/10/18 at 1945, For respiratory rate less than 8 breaths per minute or RASS score of -3, - 4, -5. Apply oxygen to keep oxygen saturations greater than 90% and notify service. ondansetron (PF) injection 4 mg (ZOFRAN) 4 mg, intravenous, Every 6 hours PRN, na usea, vomiting, Starting Thais 09/10/18 at 1945, For 48 hours, Reassess for nausea or vomiting after at least 10 minutes. If nausea or vomiting persists administer n ext ordered antiemetic medications (orde r for antiemetic medication administration ondansetron then droperidol then promethazine). oxybutynin tablet 5 mg (DITROPAN) 5 mg, oral, 3 times daily PRN, bladder spasms, Starting Thais 09/10 at 1945 oxyCODONE IR tablet 5 mg (ROXICODONE) 04 57 (Given - Provider: Dioni Johnson RBrisa.)1209 (Given - Provider: Kassandra Mazariegos R.N.)1601 (Given - Provider: Mitzy Abdul R.N., C.M.S.R.N.)2018 (Given - Provider: Dioni Johnson R.N.) 0023 (Given - Provider: Dioni Johnson R.N.)0422 (Given - Provider: Dioni Johnson R.N.)0856 (Given - Provider: Hawa Haque R.NPedro) 5 mg, oral, Every 4 hours PRN, moderate pain or score 4-6 of 10, Starting 09/11/18 at 0029 documented in this encounter Care Teams Amusement Park Entertainer Relationship Specialty Start Date End Date Gabrielle Jara M.D. PCP - General Family Medicine 10/04/13 [address] [place] [address] documented as of this encounter
--- OUTSIDE RECORDS SUMMARY | 2021-11-21 03:02 | XMS_ITS | Encounter Summary ---
:1990 Author Organization [facility] Address [address] [place] [address] Care Team Providers Name Role Phone Gabrielle Jara M.D. Primary Care Provider Reason for Referral Outpatient (Routine) - Closed Specialty Diagnoses / Procedures Referred By Contact Refer red To Contact Otorhinolaryngology Diagnoses Otitis Media Chronic Mucoid Left Conductive Hearing Loss Unilateral Left Ear With Unrestricted Hearing On The Contralateral Side Myringotomy Status Post Doug Mackenzie M.D. [facility] [address] [place] [id number] Referral ID Status Reason Start Date Expiration Date Visits Requ ested Visits Authorized [id number] Closed 03/08/2020 03/08/2021 1 1 edication Prior Authorization (Routine) - Authorized Specialty Diagnoses / Procedures Referred By Contact Refer red To Contact Diagnoses Otitis Media Chronic Mucoid Left Conductive Hearing Loss Unilateral Left Ear With Unrestricted Hearing On The Contralateral Side Myringotomy Status Post Doug Mackenzie M.D. [address] [place] [address] Referral ID Status Reason Start Date Expiration Date Visits V isits Requested Authorized [id number] Authorized 03/08/2020 04/07/2020 1 1 R GRINDER Reason for Visit Outpatient (Routine) - Closed Specialty Diagnoses / Procedures Referred By Contact Refer red To Contact Family Medicine Gabrielle Jara M. D. [address] [phone] Referral ID Status Reason Start Date Expiration Date Visits Requ ested Visits Authorized [id number] Closed 11/29/2019 11/28/2020 1 1 Encounter Details Date Type Department Care Team Description 03/08/2020 Office Visit Department of Doug Mackenzie, Otitis Media Chronic Mucoid Left (Primary Dx); Otorhinolaryngology in [place] Conductive Hearing Loss Unilateral Left Ear With Unrestricted Hearing On The Contralateral Side; [place] [id number] [place] Myringotomy Status Post [address] [place] [id number] [place], [place] [phone] Social History Tobacco Use Types Packs/Day Years [...] Sign Reading Time Taken Comments Blood Pressure 150/92 03/08/2020 9:54 AM FLOOR GRINDER Pulse 97 03/08/2020 9:54 AM FLOOR GRINDER Temperature 36.4 ??C (97.5 ??F) 03/08/2020 9:54 AM FLOOR GRINDER Respiratory Rate - - Oxygen Saturation - - Inhaled Oxygen Concentration - - Weight - - Height - - Body Mass Index - - documented in this encounter Consult Notes Doug Mackenzie M.D. - 03/08/2020 10:00 AM CST SUBJECTIVE REASON FOR CONSULT Ms. Alcantara is a 29 y.o. female who presents for evaluation of No chief complaint on file.. At request of: Leobardo Pineda MD HISTORY OF PRESENT ILLNESS Ms. Alcantara is a very pleasant 29 y.o. female [id number]-tjxo mom accompanied by her youngest daughter Reason for visit: Ear plugging sensation, left more so than right Varies, moderate severity. Approximately 3 month history. She had ???a cold?? in December, and herears plugged up during that time. Intermittent during the daytime, sometimes ???opens up?? . Worse at night when she lays on her right side ???I can hear out of my left ear?? , she has some anxiety that she would be able to hear kids. Denies associated tinnitus, ear pain or drainage. She saw her primary provider Dr. Leobardo Pineda (2019February 13 note reviewed and appreciated) and has tried some saline nasal rinse an pwuz-[id number]-kputzpu ear drops without improvement. ENT history: Ear tubes x2 (Dr. Salcedo, [facility], most recent over 10 years ago) REVIEW OF SYSTEMS NEGATIVES: Constitutional (Fever,Unexpected weight loss), Neurologic (Headache), Eyes (Double vision), GI (Heartburn/Reflux), Allergy (Sneezing), Respiratory (Shortness of breath, chronic cough), CV (Chest Pain), MSK (TMJ pain), Psych (Depression, Anxiety), Derm (Skin problems), Heme (Clotting disorder, Easy bruising or bleeding), With the following exceptions, POSITIVES: None The following portions of the patient's history were reviewed and updated as appropriate: allergies, current medications, family history, medical history, social history, surgical history and problem list. Quit smoking a couple years ago OBJECTIVE PHYSICAL EXAMINATION Vital Signs: BP (!) 150/92 Pulse 97 Temp 36.4 ??C General appearance: NO ACUTE DISTRESS Voice: NORMAL Head/face inspection: NORMAL Facial palpation: NORMAL Facial strength: NORMAL Eyes-gross motility/align: NORMAL Hearing (grossly): NORMAL Ears External: NORMAL Otoscopic: LEFT CANAL - NORMAL LEFT TM - partial approximately 60% inferior trent fluid meniscus RIGHT CANAL - NORMAL RIGHT TM - NORMAL Tuning forks Alcantara - left going. Rinne - LEFT bone greater 256 Hz, air greater 512 Hz RIGHT air greater 256 Hz Nose: External: NORMAL Intranasal: NORMAL Oral cavity: NORMAL, normal tongue mobility Oropharynx: NORMAL Nasopharynx: Adequate mirror exam precluded by anatomy and/or patient tolerance. Hypopharynx/Larynx: Adequate mirror exam precluded by anatomy and/or patient tolerance. Neck: NO MASSES. Cervical lymph nodes: NOT PALPABLY ENLARGED. Thyroid: NOT PALPABLY ENLARGED. Salivary glands: NOT PALPABLY ENLARGED. Respiratory: Quiet respirations without stridor Cardiovascular: Upper extremities appear well perfused without cyanosis. Neurologic: NORMAL grossly Cranial nerves: NORMAL grossly ASSESSMENT / PLAN #1 Otitis Media Chronic Mucoid Left #2 Conductive Hearing Loss Unilateral Left Ear With Unrestricted Hearing On The Contralateral Side #3 Myringotomy Status Post Other orders - Family Medicine office visit (clinic) - ciprofloxacin-dexamethasone (CIPRODEX) 0.3-0.1 % otic suspension; Administer 4 drops into the leftear 2 (two) times a day for 7 days., Starting Fri03/08/2020, Until Fri03/15/2020, Normal - Audiology evaluation; Future; Expected date: 03/08/2020 - Otorhinolaryngology office visit (clinic); Future; Expected date: After tests #1 Otitis Media Chronic Mucoid Left Likely 3 month duration by history. Discussed option no intervention with observation, left myringotomy tube. I am not optimistic further medication will be beneficial at this point. She is unable to auto inflate her ear. #2 Conductive Hearing Loss Unilateral Left Ear With Unrestricted Hearing On The Contralateral Side By tuning forks. She is eager to have improvement in her hearing and symptoms. She is eager to proceed with a tube. She declined pre tube audiogram. RISKS/BENEFITS/OPTIONS MYRINGOTOMY AND TUBE PLACEMENT DISCUSSED Risks: Discomfort, otorrhea, early tube plugging or extrusion, TM perforation, possible failure to improve symptoms, possible worsening of symptoms Benefits: Improvement of symptoms Options: No intervention, medication management, tube placement #3 Myringotomy Status Post At least 2 prior sets --------- PROCEDURE: Left myringotomy tube, Paparella short-term Written and verbal consent obtained. Procedure pause completed. Under binocular microscopy phenol applied anteroinferior TM. Radial myringotomy incision created. Copious clear trent gelatinous mucoid effusion suctioned. Paparella tube placed. --------- She reported immediate improvement in her hearing. Otic drops instructions discussed including tragal pressure. She voiced understanding agreement. Encouraged follow-up approximately 2-4 weeks with audiogram, sooner any questions or concerns. She voiced understanding agreement. R GRINDER documented in this encounter Plan of Treatment Scheduled Orders Name Type Priority Associated Diagnoses Order S chedule Audiology evaluation Audiology Routine Otitis Media Chronic Expected: 03/08/2020 Mucoid Left (Approximate), Conductive Hearing Loss Expi res: 03/08/2023 Unilateral Left Ear With Unrestricted Hearing On The Contralatera l Side Myringotomy Status Post Scheduled Referrals Name Type Priority Associated Order Schedule Diagnoses Otorhinolaryngology Outpatient Routine Otitis Media 1 Occurr ences office visit (clinic) Referral Chronic Mu coid Left starting Conductive Hearing 0 until Loss Unilateral 03/08/2023 Left Ear With Unrestricted Hearing On The Contralateral Si de Myringotomy Status Post documented as of this encounter Visit Diagnoses Diagnosis Otitis Media Chronic Mucoid Left - Prima ry Conductive Hearing Loss Unilateral Left Ear With Unrestricted Hearing On The Contralateral Side Myringotomy Status Post documented in this encounter Care Teams Technical Maintenance Specialist Relationship Specialty Start Date End Date Gabrielle Jara M.D. PCP - General Family Medicine 10/04/13 [address] [place] [address] documented as of this encounter
--- OUTSIDE RECORDS SUMMARY | 2021-11-21 03:02 | XMS_ITS | Encounter Summary ---
:1990 Author Organization [facility] Address [address] [place] [address] Care Team Providers Name Role Phone Gabrielle Jara M.D. Primary Care Provider Encounter Details Date Type Department Care Team Description 01/22/2021 Patient Self-Triage [facility] Symptom Wire Weaver Cloth, Provider Social History Tobacco Use Types Packs/Day Years [...] on filedocumented in this encounter Care Teams Molder Shoulder Pad Relationship Specialty Start Date End Date Gabrielle Jara M.D. PCP - General Family Medicine 10/04/13 [address] [place] [address] documented as of this encounter
--- OUTSIDE RECORDS SUMMARY | 2021-11-21 03:02 | XMS_ITS | Encounter Summary ---
:1990 Author Organization [facility] Address [address] [place] [address] Care Team Providers Name Role Phone Gabrielle Jara M.D. Primary Care Provider Reason for Referral Outpatient (Routine) - Authorized Specialty Diagnoses / Procedures Referred By Contact Refer red To Contact Diagnoses Insertion Intrauterine Device Kristine Gonzalez APRN, [facility] Procedures IUD - Insertion or Reinsertion w/removal [address] [phone] Referral ID Status Reason Start Date Expiration Date Visits V isits Requested Authorized [id number] Authorized 05/24/2021 05/24/2022 1 1 R OPERATOR Outpatient (Routine) - Closed Specialty Diagnoses / Procedures Referred By Contact Refer red To Contact Obstetrics and Kristine Gonzalez APRN, [facility] Gynecology [address] [phone] Referral ID Status Reason Start Date Expiration Date Visits Requ ested Visits Authorized [id number] Closed 05/24/2021 05/24/2022 1 1 Scheduling Instructions IUD check R OPERATOR Reason for Visit Reason Comments Contraception Appointment Request (Routine) - Closed Specialty Diagnoses / Procedures Referred By Contact Refer red To Contact Obstetrics and Gynecology Referral ID Status Reason Start Date Expiration Date Visits Requ ested Visits Authorized [id number] Closed 05/23/2021 05/23/2022 1 1 Encounter Details Date Type Department Care Team Description 05/24/2021 Comprehensive Visit Department of Kristine Gonzalez Inser tion Intrauterine Device (Primary Dx); Obstetrics and EVELIO PERERA- Pap Smear Examination Gynecology in [address] [place] [phone] [place] [address] [facility] (Work) [place], [place] [phone] (Fax) [phone] Social History Tobacco Use Types Packs/Day Years [...] Sign Reading Time Taken Comments Blood Pressure 143/87 05/24/2021 3:00 PM MINER OPERATOR Pulse - - Temperature - - Respiratory Rate - - Oxygen Saturation - - Inhaled Oxygen Concentration - - Weight - - Height - - Body Mass Index - - documented in this encounter Procedure Notes Kristine Gonzalez APRN, C.N.P. - 05/24/2021 3:00 PM CSTAssociated Order(s): IUD - Insertion or Reinsertion w/removal Post-Procedure Diagnose(s): Insertion Intrauterine Device IUD - Insertion or Reinsertion w/removal Date/Time: 05/24/2021 4:19 PM Performed by: Kristine Gonzalez APRN, C.N.P. Authorized by: Kristine Gonzalez APRN, C.N.PPedro Care team members present 1. Kristine Gonzalez APRN, C.N.PPedro 2. Tasha Irvin L.P.N. PROCEDURE DETAILS Procedure: Insertion Pelvic exam performed: yes GC/Chlamydia: Not indicated Tenaculum applied to cervix: yes Uterus sounded: yes Uterus sound depth (cm): 8 Strings length (cm): 3 cm IUD type: 1 each copper 380 square mm CONSENT Consent obtained: written UNIVERSAL PROTOCOL All relevant documentation and testing were reviewed and available. All required blood products, implants, devices and or special equipment were made available as applicable. Pre-procedure verificationwas conducted and the correct site was marked if required. A fire risk assessment was done as applicable. The procedural time-out was conducted prior to performing the procedure and confirmed in a procedural pause. PRE-PROCEDURE DETAILS Assessment - reasonably exclude based on: PREG criteria Indications: Contraception Appropriate hand hygiene, gown, cap, mask, protective eyewear, sterile gloves, skin preparation, sterile drape, and strict aseptic technique were utilized as applicable for the procedure.: yes Site preparation: Povidone-iodine SEDATION / ANESTHESIA Anesthesia method: none POST-PROCEDURE DETAILS Procedure completed successfully: yes Complications: no apparent complications COMMENTS Sasser 3 days ago, used a condom. We discussed that the copper IUD is approved for use for emergency contraception up to 5 days after unprotected intercourse. She understands and would like to proceed. IUD inserted as noted above. Return in 4-6 weeks for IUD check. 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 THINPREP W/HPV Routine 05/24/2021 3:26 PM Pap Smear Results for this CO-TEST SCREEN MINER OPERATOR Examination procedure are in the results section. HPV WITH GENOTYPING, Routine 05/24/2021 3:26 PM R esults for this PCR, THINPREP MINER OPERATOR procedure are in the results section. documented in this encounter Results NH INSERT OF INTRAUTERINE DEVICE (05/24/2021 4:19 PM MINER OPERATOR) Narrative MMODAL - 05/24/2021 4:19 PM MINER OPERATOR Kristine Gonzalez APRN, C.N.P. ? 05/24/2021 ??4:22 PM IUD - ??Insertion or Reinsertion w/remov al Date/Time: 05/24/2021 4:19 PM Performed by: Kristine Gonzalez APRN, C.N.P . Authorized by: Kristine Gonzalez APRN, C.N. P. Care team members present 1. Kristine Gonzalez APRN, C.N.P. 2. Tasha Irvin L.P.N. PROCEDURE DETAILS ??Procedure: ??Insertion ??Pelvic exam performed: yes ?GC/Chlamydia: ??Not indicated ??Tenaculum applied to cervix: yes ?Uterus sounded: yes ?Uterus sound depth (cm): ??8 ??Strings length (cm): ??3 cm ??IUD type: 1 each copper 380 square mm CONSENT Consent obtained: written UNIVERSAL PROTOCOL All relevant documentation and testing w ere reviewed and available. All required blood products, implants, devic es and or special equipment were made available as applicable. Pre-proced ure verification was conducted and the correct site was marked if required. A fire risk assessment was done as applicable. The procedural time-out w as conducted prior to performing the procedure and confirmed in a procedu ral pause. PRE-PROCEDURE DETAILS ?? Assessment - reas onably exclude based on: ??PREG criteria ??Indications: ??Contraception ??Appropriate hand hygiene, gown, cap, mask, protective eyewear, sterile gloves, skin preparation, sterile drape, and strict aseptic technique were utilized as applicable for the procedure .: yes ?Site preparation: ??Povidone-iodine SEDATION / ANESTHESIA Anesthesia method: none POST-PROCEDURE DETAILS ??Procedure completed successfully: yes ?Complications: no apparent complicati ons ?? COMMENTS ?? Sasser 3 days ago, used a condo m. We discussed that the copper IUD is approved for use for emergency contra ception up to 5 days after unprotected intercourse. She understands and would like to proceed. IUD inserted as noted above. Return in 4-6 w eeks for IUD check. REBECCA Hernández APRN OB GYNE ORDERABLES Performing Organization Address City/[facility]/ZIP Code Phon e Number MMODAL MMODAL NA HPV with Genotyping, PCR, ThinPrep (05/24/2021 3:26 PM MINER OPERATOR) Patholo gist Method Time Signature Specimen Thin Prep 05/28/2021 DTL Source Vial, 3:42 PM MINER OPERATOR Cervix/Endoc ervix HPV High Risk Negative Negative 05/28/2021 DTL type 16, PCR 3:42 PM MINER OPERATOR HPV High Risk Negative Negative 05/28/2021 DTL type 18, PCR 3:42 PM MINER OPERATOR HPV other Negative Negative 05/28/2021 DTL High Risk 3:42 PM MINER OPERATOR types, PCR Comment: The following Other High Risk HPV types were not detected: 31, 33, 35, 39, 45, 51, 52, 56, 58, 59, 66, and 68 This test was ordered in the context of a [facility] PLATE GRAINER APPRENTICE Cytology case; this result should be int erpreted within the context of the PLATE GRAINER APPRENTICE cytology report. Specimen Anatomical Collection Method Collection Time Receive d Time (Source) Location / / Volume Laterality Varies 05/24/2021 3:26 PM MINER OPERATOR 12:04 PM MINER OPERATOR Narrative [facility] - 05/28/2021 3:42 PM MINER OPERATOR Specimen Information: Specimen ID: [id number] Specimen Type: Varies Specimen Collection Start Date: 05/24/19 22 ??3:26 PM Specimen Received Date: 05/25/2021 12:04 PM Specimen ID: [id number] Specimen Type: Varies REBECCA Hernández APRN LAB MICROBIOLOGY - GENERAL ORDERABLES Performing Organization Address City/[facility]/ZIP Code Phon e Number [facility] [address] [place], [place] [address] [facility] [place] [address] Laboratories-[facility] [address] ThinPrep w/HPV Co-Test Screen (05/24/2021 3:26 PM MINER OPERATOR) Component Value Ref Test Analysis Performed Pathologis t Range Method Time At Signature 05/31/2021 ECLR 2:27 PM MINER OPERATOR Disclaimer High risk HPV testing, Real-Time Polymerase Chain Reac tion 05/31/2021 ECLR (PCR) was performed on the liquid-based cytology specimen 2:27 PM at [facility], [place], [place]. Report TRACIE Pepper(ASCP) 05/31/2021 ECLR electronically 2:27 PM signed by [facility] I verify that I have examined all relevant slides/materials for the specimen(s) and rendered or confirmed the diagnosis. Gross Description Received specimen 05/31/2021 ECL R in a ThinPrep 2:27 PM vial. MINER OPERATOR Pap Test Source Cervical/Endocervi 05/31/2021 ECLR poncho 2:27 PM MINER OPERATOR Interpretation Cervical/Endocervical ??(ThinPrep): 05/31/2021 ECLR 2:27 PM Satisfactory for Evaluation MINER OPERATOR Negative for Intraepithelial Lesion or Malignancy ??High Risk HPV testing results are NEGATIVE. See specific genotype results below. HPV with Genotyping, PCR, ThinPrep: ??HPV High Risk Type 16, PCR: ??NEGATIVE ??HPV High Risk Type 18, PCR: ??NEGATIVE ??HPV other High Risk types, PCR: ??NEGATIVE Other High Risk HPV types include: 31, 33, 35, 39, 45, 51, 52, 56, 58, 59, 66, and 68. Specimen Anatomical Collection Method Collection Time Receive d Time (Source) Location / / Volume Laterality Varies 05/24/2021 3:26 PM (Cervix/Endocerv MINER OPERATOR 12:04 PM CS T ix) Narrative This result has an attachment that is no t available. EVELIO Hernández APRN- LAB PAP PATHDX ORDERABLES Performing Organization Address City/State/ZIP Code Phon e Number [facility]- [address] [place] [phone] [facility] [place] [address] System in [address] documented in this encounter Visit Diagnoses Diagnosis Insertion Intrauterine Device - Primary Pap Smear Examination documented in this encounter Administered Medications Inactive Administered Medications - up to 3 most recent administrations Medication Order MAR Action Action Date Dose Rate Site copper IUD 1 each (PARAGARD) Given 05/24/2021 4:19 PM MINER OPERATOR 1 each 1 each, intrauterine, One-Time Injection, Starting on Thais 05/24/21 at 1619, For 1 dose documented in this encounter Care Teams Insurance Claims Examiner Relationship Specialty Start Date End Date Gabrielle Jara M.D. PCP - General Family Medicine 10/04/13 [address] [place] [address] documented as of this encounter
--- OUTSIDE RECORDS SUMMARY | 2021-11-21 03:02 | XMS_ITS | Encounter Summary ---
:1990 Author Organization [facility] Address [address] [place] [address] Care Team Providers Name Role Phone Gabrielle Jara M.D. Primary Care Provider Encounter Details Date Type Department Care Team Description 01/22/2021 Clinical Communication Department of Kayla Wilkinson, Medicine, [facility] [place], in [address] [place] [address] [address] [address] [place], [place] [phone] (Work) [phone] Social History Tobacco Use Types Packs/Day Years [...] on filedocumented in this encounter Care Teams Imaging Science Professor Relationship Specialty Start Date End Date Gabrielle Jara M.D. PCP - General Family Medicine 10/04/13 [address] [place] [address] documented as of this encounter
--- OUTSIDE RECORDS SUMMARY | 2021-11-21 03:02 | XMS_ITS | Encounter Summary ---
:1990 Author Organization [facility] Address [address] [place] [address] Care Team Providers Name Role Phone Gabrielle Jara M.D. Primary Care Provider Encounter Details Date Type Department Care Team Description 04/24/2021 Orders Only RST PCP HLTH MNT Gabrielle Jara M.D. [address] [place] [phone] (Wo rk) Social History Tobacco [...] on filedocumented in this encounter Care Teams Interpreter Translator Relationship Specialty Start Date End Date Gabrielle Jara M.D. PCP - General Family Medicine 10/04/[address] [place] [phone] documented as of this encounter
--- OUTSIDE RECORDS SUMMARY | 2021-11-21 03:02 | XMS_ITS | Encounter Summary ---
:1990 Author Organization [facility] Address [address] [place] [address] Care Team Providers Name Role Phone Gabrielle Jara M.D. Primary Care Provider Reason for Visit Reason Comments Sinus Symptoms COVID Nurse Line Encounter Details Date Type Department Care Team Description 03/06/2021 Nurse Triage Department of Family Adri Koch Si nus Symptoms; COVID [facility], in [address] [place] [address] [place] [phone] Social History Tobacco Use Types Packs/Day Years [...] this encounter Miscellaneous Notes Telephone Encounter - Adri Koch R.N. - 03/06/2021 8:04 AM CST Chief Complaint / Reason for Call Patient is a 30 y.o. female calling regarding Sinus Symptoms and COVID Nurse Line. Assessment Concern: Concern for sinus infection. Nasal congestion. Frontal sinus pain. Relieved with blowing nose. Pain 6/10. Present for: Few days Home cares tried: Vitamin C, humidifier, nasal washes. OTC pain pill. Calling to request: Treatment Home cares discussed in detail. Verbal understanding given. COVID screening completed. Testing not indicated. The recommended disposition is Home Care. Reason for Disposition ? ? [1] Sinus congestion as part of a cold AND [2] present < 10 days Protocols used: SINUS PAIN OR [id number] Care Advice Patient/Caregiver understands and will follow care advice?: Yes, able to teach back HOME CARE: * You should be able to treat this at home. REASSURANCE AND EDUCATION: * Sinus congestion is a normal part of a cold. * Usually home treatment with nasal washes can prevent an actual bacterial sinus infection. * Antibiotics are not helpful for the sinus congestion that occurs with colds. NASAL WASHES FOR A STUFFY NOSE: * Introduction: Saline (salt water) nasal irrigation (nasal wash) is an effective and simple home remedy for treating stuffy nose and sinus congestion. The nose can be irrigated by pouring, spraying, or squirting salt water into the nose and then letting it run back out. * How it Helps: The salt water rinses out excess mucus and washes out any irritants (dust, allergens) that might be present. It also moistens the nasal cavity. * Methods: There are several ways to irrigate the nose. You can use a saline nasal spray bottle (available [id number]-[id number]), a rubber ear syringe, a medical syringe without the needle, or a NETI POT. PAIN MEDICINES: * For pain relief, you can take either acetaminophen, ibuprofen, or naproxen. * They are ibwc-zmr-ycvears (OTC) pain drugs. You can buy them at the drugstore. * ACETAMINOPHEN - REGULAR STRENGTH TYLENOL: Take 650 mg (two 325 mg pills) by mouth every 4 to 6 hours as needed. Each Regular Strength Tylenol pill has 325 mg of acetaminophen. The most you should take each day is 3,250 mg (10 pills a day). * ACETAMINOPHEN - EXTRA STRENGTH TYLENOL: Take 1,000 mg (two 500 mg pills) every 8 hours as needed. Each Extra Strength Tylenol pill has 500 mg of acetaminophen. The most you should take each day is 3,000 mg (6 pills a day). * IBUPROFEN (E.G., MOTRIN, ADVIL): Take 400 mg (two 200 mg pills) by mouth every 6 hours. The most you should take each day is 1,200 mg (six 200 mg pills), unless your doctor has told you to take more. * NAPROXEN (E.G., ALEVE): Take 220 mg (one 220 mg pill) by mouth every 8 to 12 hours as needed. You may take 440 mg (two 220 mg pills) for your first dose. The most you should take each day is 660 mg (three 220 mg pills a day), unless your doctor has told you to take more. NASAL DECONGESTANTS FOR A VERY STUFFY NOSE: * MOST PEOPLE DO NOT NEED TO USE THESE MEDICINES. * If your nose feels blocked, you should try using nasal washes first. * If you have a very stuffy nose, nasal decongestant medicines can shrink the swollen nasal mucosa and allow for easier breathing. If you have a very runny nose, these medicines can reduce the amount of drainage. They may be taken as pills by mouth or as a nasal spray. * Pseudoephedrine (Sudafed): Available xmjx-spg-zmpijcz in pill form. Typical adult dosage is two 30mg tablets every 6 hours. * Oxymetazoline Nasal Drops (Afrin): Available fory-ifx-jihusvp. Clean out the nose before using. [place] each nostril once, wait one minute for absorption, and then spray a second time. * Phenylephrine Nasal Drops (Romain-Synephrine): Available keba-ikt-mbbhbro. Clean out the nose before using. [place] each nostril once, wait one minute for absorption, and then spray a second time. * Read the package instructions on all medicines that you take. CAUTION - NASAL DECONGESTANTS: * Do not take these medications if you have high blood pressure, heart disease, prostate enlargement, or an overactive thyroid. * Do not take these medications if you are . * Do not take these medications if you have used a MAO inhibitor such as isocarboxazid (Marplan), phenelzine (Nardil), rasagiline (Azilect), selegiline (Eldepryl, Emsam), or tranylcypromine (Parnate) in the past 2 weeks. Life- threatening side effects can occur. * Do not use these medications for more than 3 days (Reason: rebound nasal congestion). EXPECTED COURSE: * Sinus congestion from viral upper respiratory infections (colds) usually lasts 5-10 days. * Occasionally a cold can worsen and turn into bacterial sinusitis. Clues to this are sinus symptomslasting longer than 10 days, fever lasting longer than 3 days and worsening pain. Bacterial sinusitis may need antibiotic treatment. CALL BACK IF: * Severe pain persists over 2 hours after pain medicine * Sinus pain persists over 1 day after using nasal washes * Sinus congestion (fullness) persists over 10 days * Fever lasts over 3 days * You become worse. UM SERVICE SCHEDULER documented in this encounter Plan of Treatment Not on filedocumented as of this encounter Visit Diagnoses Not on filedocumented in this encounter Care Teams Dielectric Testing Machine Operator Relationship Specialty Start Date End Date Gabrielle Jara M.D. PCP - General Family Medicine 10/04/[address] [place] [address] documented as of this encounter
--- OUTSIDE RECORDS SUMMARY | 2021-11-21 03:02 | XMS_ITS | Encounter Summary ---
:1990 Author Organization [facility] Address [address] [place] [address] Care Team Providers Name Role Phone Gabrielle Jara M.D. Primary Care Provider Reason for Visit Reason Comments Med Refill Encounter Details Date Type Department Care Team Description 04/24/2020 Refill Department of Obstetrics and Gonzalez, Kristine Cortez APRN, Med Refill Gynecology in [address] [address] [place] [address] [phone] Social History Tobacco Use Types Packs/Day Years [...] this encounter Miscellaneous Notes Telephone Encounter - Caryn Grayson I - 04/26/2020 3:55 PM CST Portal message sent TEACHER documented in this encounter Plan of Treatment Not on filedocumented as of this encounter Visit Diagnoses Not on filedocumented in this encounter Care Teams State Farm Agent Relationship Specialty Start Date End Date Gabrielle Jara M.D. PCP - General Family Medicine 10/04/13 [address] [place] [address] documented as of this encounter
--- OUTSIDE RECORDS SUMMARY | 2021-11-21 03:02 | XMS_ITS | Encounter Summary ---
:1990 Author Organization [facility] Address [address] [place] [address] Care Team Providers Name Role Phone Gabrielle Jara M.D. Primary Care Provider Reason for Visit Reason Comments Consult Appointment Request (Routine) - Closed Specialty Diagnoses / Procedures Referred By Contact Refer red To Contact Obstetrics and Gynecology Referral ID Status Reason Start Date Expiration Date Visits Requ ested Visits Authorized [id number] Closed 04/27/2019 04/26/2020 1 1 Encounter Details Date Type Department Care Team Description 05/11/2019 Office Visit Department of Kristine Gonzalez Cyst Sebaceo Obstetrics and TREVER, [facility] (Primary Dx) Gynecology in [address] [address] [place], [place] [phone] [address] (Work) [phone] Social History Tobacco Use Types Packs/Day Years [...] Sign Reading Time Taken Comments Blood Pressure 132/90 05/11/2019 10:33 AM ROOF PROMENADE TILE SETTER Pulse - - Temperature - - Respiratory Rate - - Oxygen Saturation - - Inhaled Oxygen Concentration - - Weight 118 kg (260 lb 5.8 oz) 05/11/2019 10:33 AM ROOF PROMENADE TILE SETTER Height - - Body Mass Index 36.86 09/10/2018 10:06 AM CDT documented in this encounter Progress Notes Kristine Gonzalez, Liam PERERANAtul. - 05/11/2019 10:45 AM CST SUBJECTIVE CHIEF COMPLAINT/REASON FOR VISIT Chief Complaint Patient presents with ??? Consult HISTORY OF PRESENT ILLNESS Cherry is a 28 y.o. female here with concern about a cyst on her right buttock. This cyst has been present for about 1 year. It has not changed in size. Is not painful. Has not drained. This has never happened before. States that it is affecting her intimacy with her . CURRENT MEDICATIONS Current Outpatient Medications on File Prior to Visit Medication Sig Dispense Refill ??? acetaminophen (TYLENOL) 500 mg capsule Take 2 capsules (1,000 mg total) by mouth every 6 (six) hours as needed for pain. Can picker tender over the counter ??? citalopram (CeleXA) 20 mg tablet ??? cyanocobalamin (VITAMIN B12) 500 mcg tablet Take 500 mcg by mouth. ??? LORazepam (ATIVAN) 0.5 mg tablet Take 0.5 mg by mouth as needed. ??? magnesium 250 mg tablet Take 1 tablet by mouth. ??? MARLISSA, 28, 0.15-0.03 mg per tablet TAKE ONE TABLET BY MOUTH EVERY DAY 84 tablet 4 ??? [DISCONTINUED] oxyCODONE (ROXICODONE) 5 mg immediate release tablet Take 1 tablet (5 mg total) by mouth every 6 (six) hours as needed for severe pain or score 7-10 of 10 Indication: Acute Pain. 10 tablet 0 ??? [DISCONTINUED] oxyCODONE (ROXICODONE) 5 mg immediate release tablet Take 1 tablet (5 mg total) by mouth every 6 (six) hours as needed for moderate pain or score 4-6 of 10 (take 10 mg for pain >6) Indication: Acute Pain Exception. 12 tablet 0 No current facility-administered medications on file prior to visit. ALLERGIES/CONTRAINDICATIONS No Known Allergies SOCIAL HISTORY Social History Tobacco Use ??? Smoking status: Former Smoker ??? Smokeless tobacco: Never Used Substance Use Topics ??? Alcohol use: Yes Comment: Holidays, 3 times monthly ??? Drug use: No OBJECTIVE VITAL SIGNS BP 132/90 (Cuff Size: Large) Wt 118 kg LMP 04/21/2019 (Exact Date) BMI 36.86 kg/m?? PHYSICAL EXAMINATION General: No apparent distress. Right buttock is a 3 cm x 3 cm soft, round cyst like lesion. Skin is normal in color. No obvious signs of folliculitis. ASSESSMENT / PLAN #1 Cyst Sebaceous Discussed with patient options of warm packing and expectant management at home, hoping the cyst will drain on its own verses lancing and draining today verses general surgery consult. She elects to try and have it drained today. See procedure note. With pin point puncture of the cyst, the contents ofthe cyst that are serous/purulent, thin/liquidy, somewhat odorous, are easily expressed. Patient tolerated the procedure well. We discussed home care measures including tub soaks an signs of infection to watch for. Her questions are answered. PROMENADE TILE SETTER documented in this encounter Procedure Notes Kristine Gonzalez APRN CPedroN.P. - 05/11/2019 10:45 AM CSTAssociated Order(s): Incision and Drainage Post-Procedure Diagnose(s): Cyst Sebaceous Incision and Drainage Date/Time: 05/11/2019 11:10 AM Performed by: Kristine Gonzalez APRN, C.N.P. Authorized by: Kristine Gonzalez APRN, C.N.P. Care team members present 1. Jia Coello L.P.N. PROCEDURE DETAILS Complexity: Simple Ultrasound guidance: no Needle aspiration: no Incision types: Stab incision Incision depth: Dermal Incision length (cm): 0 Scalpel blade: 11 Wound management: Manually decompressed Drainage: Serous Drainage amount: Moderate Wound treatment: Wound left open CONSENT Consent obtained: verbal Consent given by: patient The benefits, risks and alternatives to the procedure and the potential need for sedation or anesthesia as well as the names, roles, and responsibilities of healthcare team members performing significant interventional tasks were discussed with the patient and/or decision maker. UNIVERSAL PROTOCOL All relevant documentation and testing were reviewed and available. All required blood products, implants, devices and or special equipment were made available as applicable. Pre-procedure verificationwas conducted and the correct site was marked if required. A fire risk assessment was done as applicable. The procedural time-out was conducted prior to performing the procedure and confirmed in a procedural pause. PRE PROCEDURE DETAILS Indication: Cyst Location: Anogenital Anogenital location: right buttock. Length (cm): 3 Width (cm): 3 Site preparation: Povidone-iodine SEDATION / ANESTHESIA Anesthesia method: local infiltration Local infiltrate type: lidocaine 1% w/o epi POST PROCEDURE DETAILS Procedure completed successful: yes Tetanus status up to date: Up to date Complications: no immediate complications FRONT DESK OFFICER PROMENADE TILE SETTER documented in this encounter Plan of Treatment Not on filedocumented as of this encounter Procedures Procedure Name Priority Date/Time Associated Diagnosis Comme nts INCISION AND Routine 05/11/2019 10:45 AM Cyst Sebaceous Result s for this DRAINAGE ROOF PROMENADE TILE SETTER procedure are i n the results section. documented in this encounter Results PROCEDURE PLACEHOLDER (05/11/2019 10:45 AM ROOF PROMENADE TILE SETTER) Narrative MMODAL - 05/11/2019 10:45 AM ROOF PROMENADE TILE SETTER Kristine Gonzalez APRN, C.N.P. ? 05/11/2019 11:14 AM Incision and Drainage Date/Time: 05/11/2019 11:10 AM Performed by: Kristine Gonzalez APRN, C.N.P . Authorized by: Kristine Gonzalez APRN, C.N. P. Care team members present 1. Jia Coello L.P.N. PROCEDURE DETAILS Complexity: ??Simple Ultrasound guidance: no ?? Needle aspiration: no ?? Incision types: ??Stab incision Incision depth: ??Dermal Incision length (cm): ??0 Scalpel blade: ??11 Wound management: ??Manually decompresse d Drainage: ??Serous Drainage amount: ??Moderate Wound treatment: ??Wound left open CONSENT Consent obtained: verbal Consent given by: patient The benefits, risks and alternatives to the procedure and the potential need for sedation or anesthesia as well as the names, roles, and responsibilities of healthcare team memb ers performing significant interventional tasks were discussed with the patient and/or decision maker. UNIVERSAL PROTOCOL All relevant documentation and testing [...] and confirmed in a procedu ral pause. PRE PROCEDURE DETAILS Indication: ??Cyst Location: ??Anogenital Anogenital location: right buttock. Length (cm): ??3 Width (cm): ??3 Site preparation: ??Povidone-iodine SEDATION / ANESTHESIA Anesthesia method: local infiltration Local infiltrate type: lidocaine 1% w/o epi POST PROCEDURE DETAILS Procedure completed successful: yes ?? Tetanus status up to date: ??Up to date Complications: no immediate complication s ?? EVELIO Hernández APRN- PROCEDURE/MINOR SURGICAL OR DERABLES Performing Organization Address City/State/ZIP Code Phon e Number MMODAL MMODAL NA documented in this encounter Visit Diagnoses Diagnosis Cyst Sebaceous - Primary documented in this encounter Care Teams Radio Artist Relationship Specialty Start Date End Date Gabrielle Jara M.D. PCP - General Family Medicine 10/04/[address] [place] [address] documented as of this encounter
--- OUTSIDE RECORDS SUMMARY | 2021-11-21 03:02 | XMS_ITS | Encounter Summary ---
:1990 Author Organization [facility] Address [address] [place] [address] Care Team Providers Name Role Phone Gabrielle Jara M.D. Primary Care Provider Encounter Details Date Type Department Care Team Description 07/13/2020 Orders Only RST PCP HL Gian Davis Jr., M.D. [address] [place] [address] [place] [phone] (Wo rk) Social History Tobacco Use Types [...] on filedocumented in this encounter Care Teams Ballistics Tester Relationship Specialty Start Date End Date Gabrielle Jara M.D. PCP - General Family Medicine 10/04/[address] [place] [phone] documented as of this encounter
--- OUTSIDE RECORDS SUMMARY | 2021-11-21 03:03 | XMS_ITS | Encounter Summary ---
:1990 Author Organization [facility] Address [address] [place] [address] Care Team Providers Name Role Phone Gabrielle Jara M.D. Primary Care Provider Reason for Visit Reason Onset Date Comments Results 08/05/[address] scan Encounter Details Date Type Department Care Team Description 08/05/2018 Clinical Communication Department of Juan Young (Labs & CT Family Medicine, Vandana De Los Santos scan) [place] [facility], [id number] [place] [address] [phone] (Work) [phone] Social History Tobacco Use Types Packs/Day Years Used Date Smoking Tobacco: Former Smokeless Tobacco: Never Alcohol Use Standard Drinks/Week Comments Yes 0 (1 standard drink = 0.6 oz pure alcoho l) Sex Assigned at Date Recorded Not on file documented as of this encounter Miscellaneous Notes Telephone Encounter - Marycruz Nayak, L.P.N. - 08/05/2018 8:24 AM CDT PLAN Name of test result(s):CT abdomen pelvis Test result information: severe left hydronephrosis Ordered by: Vandana Young Date performed: 08/04/18 Pending results: none Disposition/Recommendation: patient to schedule appointment Information: patient/caller able to repeat back in their own words Caller agreeable to plan of care: yes The following references were used: none Telephone Encounter - Nori Han - 08/05/2018 8:01 AM CDT Reason for Communication: calling for results Current Can Nursing/Provider leave a detailed message: yes Did the patient refuse triage through Nurse line? (for symptom based concerns):na Action Needed: Please call as soon as possible with results Name of Medication (if relevant): documented in this encounter Plan of Treatment Not on filedocumented as of this encounter Visit Diagnoses Not on filedocumented in this encounter Care Teams Supervisor Filling And Packing Relationship Specialty Start Date End Date Gabrielle Jara M.D. PCP - General Family Medicine 10/04/[address] [place] [address] documented as of this encounter
--- OUTSIDE RECORDS SUMMARY | 2021-11-21 03:03 | XMS_ITS | Encounter Summary ---
:1990 Author Organization [facility] Address [address] [place] [address] Care Team Providers Name Role Phone Gabrielle Jara M.D. Primary Care Provider Reason for Referral Outpatient (Routine) - Closed Specialty Diagnoses / Procedures Referred By Contact Refer red To Contact Diagnoses Hydronephrosis Jesus Alberto Velez M.D. [facility] Region Procedures NM Kidney with Lasix HI KIDNEY VAS FLOW W DRUG SNGL HC KIDNEY VAS FLOW W DRUG SNGL HI KIDNEY VAS FLOW W DRUG SNGL [address] [place] [address] Referral ID Status Reason Start Date Expiration Date Visits Requ ested Visits Authorized [id number] Closed 08/11/2018 08/11/2019 6 6 Reason for Visit Auth/Cert Specialty Diagnoses / Procedures Referred By Contact Refer red To Contact Diagnoses Obstruction Ureteral Congenital Procedures HI CYSTOURETHROSCOPY URETER CATH HI CYSTHRSCPY W INS URETERAL STNT LEFT RETROGRADE PYELOGRAM and LEFT URETERAL STENT PLACEMENT Referral ID Status Reason Start Date Expiration Date Visits Requ ested Visits Authorized [id number] 1 1 Encounter Details Date Type Department Care Team Description 08/11/2018 Hospital Encounter [facility] OR Jesus Alberto Velez, Hydronephrosis [address] M[address]. [phone] [phone] [place] [phone] Social History Tobacco Use Types Packs/Day Years [...] Sign Reading Time Taken Comments Blood Pressure 141/91 08/11/2018 12:15 PM CDT Pulse 73 08/11/2018 12:30 PM CDT Temperature 37 ??C (98.6 ??F) 08/11/2018 11:30 AM CDT Respiratory Rate 16 08/11/2018 10:24 AM CDT Oxygen Saturation 99% 08/11/2018 12:30 PM CDT Inhaled Oxygen Concentration - - Weight 97 kg (213 lb 13.5 oz) 08/11/2018 10:24 AM CDT Height 180.5 cm (5' 11.06) 08/11/2018 10:24 AM CDT Body Mass Index 29.77 08/11/2018 10:24 AM CDT documented in this encounter Discharge Instructions AttachmentsThe following attachments cannot be sent through Care Everywhere. About Your Ureteroscopy (Gabonese)documented in this encounter Medications at Time of Discharge Medication Sig Dispensed Refills Start Date End Date ciprofloxacin (CIPRO) 250 Take 1 tablet (250 6 tablet 0 08/14/2018 mg tablet mg total) by mouth every 12 (twelve) hours for 3 days. MARLISSA 0.15-0.03 mg per Take 1 tablet by 84 tablet 4 12/1403/01/2019 tablet mouth daily. oxyCODONE (ROXICODONE) 5 Take 1 tablet (5 mg 10 tablet 0 05/11/2019 mg immediate release total) by mouth tabletIndications: Acute every 6 (six) hours Pain as needed for severe pain or score 7-10 of 10 Indication: Acute Pain. documented as of this encounter OR Notes Op Note - Jesus Alberto Velez M.D. - 08/11/2018 11:02 AM CDT FULL OP NOTE Procedure: Cystoscopy, left retrograde pyelogram, left ureteral stent placement Surgeon(s) and Role: * Jesus Alberto Velez M.D. 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 She recently presented with left flank pain. CT scan demonstrates marked hydronephrosis, which is a relatively new finding. She has relatively little renal parenchyma remaining. Was elected to place a stent for symptomatic relief, and on a later basis will perform studies to determine split renal function. Procedure: The patient was appropriately identified, the correct procedure and side were confirmed. DVT and antibiotic prophylaxis were instituted. She is brought to the operating room and placed undergeneral anesthesia. She is then placed in a dorsal lithotomy position and prepped and draped in the usual sterile fashion. A time-out is performed. Cystoscopy is carried out with a 22 Djiboutian cystoscope. Lower urinary tract is examined. Urethra, bladder neck, trigone and ureteral orifices are all normal. Both ureteral orifices are in the normal position, each is slit-like and configuration. Clear efflux is noted on the right, no efflux noted on the left. Remainder the bladder is free of stones, foreign bodies or exophytic lesions. No trabeculation is noted. Using a 5 Djiboutian open-ended ureteral catheter multiple images were collected via fluoroscopy, as contrast was injected in the ureter. No defects of filling or obstruction were noted, except for at the ureteropelvic junction. At this point there is a very tight obstruction with marked hydrone phrosis. Via the open-ended ureteral catheter, a Sensor guidewires introduced. This is observed to pass into the renal pelvis. The open-ended ureteral catheters removed leaving the guidewire in place. Over the guidewire, a 7 Djiboutian variable length ureteral stent is position. One end is observed to coil in the kidney and the other end is observed to coil in the bladder. Guidewire is removed leaving the stent in appropriate position. The bladder is drained and the procedure concluded. She will be discharged home with a few days of antibiotics and pain medications. She will have a Mag3 renogram in the near future in follow-up to review the results. Specimens * No specimens in log * Drains * No drains in log * Estimated Blood Loss 0 mL Implants Implant Name Type Inv. Item Serial No. Seat Builder Lot No. LRB No. Used Action STNT URET LP [id number] [id number] - [id number] Ureteral Stent STNT URET LP [id number] [id number] [employer] [id number] Left 1 Implanted Jesus Alberto Velez M.D. documented in this encounter Plan of Treatment Not on filedocumented as of this encounter Procedures Procedure Name Priority Date/Time Associated Diagnosis Comme nts ADULT OXYGEN THERAPY Routine 08/11/2018 11:32 AM CDT RETROGRADE PYELOGRAM 08/11/2018 10:46 AM Obstruction U reteral CDT Congenital documented in this encounter Results NM Kidney with Lasix (08/12/2018 2:44 PM CDT) Anatomical Region Laterality Modality Renal, Nuclear Medicine RST LOS, Nuclear Medicine ARZ N/A Nuclear Medicine LOS, Nuclear Medicine FLA LOS Specimen (Source) Anatomical Collection Method Collection Time Re ceived Time Location / / Volume Laterality 08/12/2018 2:52 PM CDT Impressions 08/12/2018 3:11 PM CDT IMPRESSION: 1. Split function: Left kidney 6%, right kidney 94%. 2. Normal right kidney. 3. Poor left kidney flow, cortical trans it and excretion. Narrative 08/12/2018 3:11 PM CDT EXAM: NM KIDNEY WITH LASIX COMPARISON: Correlation is made with 03/15/2004 nuclear medicine study and 08/04/2018 CT of the abdomen or pelvis. FINDINGS: Normal flow phase, cortical phase and pr ompt excretion of the right kidney. Delayed flow and cortical phase left kid darshan. Split function: Left kidney 6%, right ki dney 94%. RADIOPHARMACEUTICAL/MEDS: Route: intravenous sodium chloride 0.9 % injection 10 mL,10 mL Route: intravenous technetium Tc 99m mertiatide (Tc-99m MAG 3) , 9.6 millicurie Furosemide, entered in [facility] Procedure Note Celestino Mazariegos M.D. - 08/12/2018Formatt ing of this note might be different from the original. EXAM: NM KIDNEY WITH LASIX COMPARISON: Correlation is made with 03/15/2004 nuclear medicine study and 08/04/2018 CT of the abdomen or pelvis. FINDINGS: Normal flow phase, cortical phase and pr ompt excretion of the right kidney. Delayed flow and cortical phase left kid darshan. Split function: Left kidney 6%, right ki dney 94%. RADIOPHARMACEUTICAL/MEDS: Route: intravenous sodium chloride 0.9 % injection 10 mL,10 mL Route: intravenous technetium Tc 99m mertiatide (Tc-99m MAG 3) , 9.6 millicurie Furosemide, entered in [facility] IMPRESSION: 1. Split function: Left kidney 6%, right kidney 94%. 2. Normal right kidney. 3. Poor left kidney flow, cortical trans it and excretion. Jesus Alberto Velez M.D. [facility] PROCEDURES documented in this encounter Visit Diagnoses Diagnosis Hydronephrosis Hydronephrosis documented in this encounter Admitting Diagnoses Diagnosis Obstruction Ureteral Congenital documented in this encounter Administered Medications Inactive Administered Medications - up to 3 most recent administrations Medication Order MAR Action Action Date Dose Rate Site lactated ringers Rate/Dose Verify 08/11/2018 10:55 AM CDT 20 mL/hr, intravenous, Continuous, Starting on Fri08/11/18 at 1030, Pre-Op New Bag 08/11/2018 10:45 AM CDT 20 mL/hr 20 mL/hr documented in this encounter Active and Recently Administered Medications Times are shown in CDT. Scheduled Medication Order 08/09/2018 08/10/2018 08/11/2018 ceFAZolin in NaCl 0.9 % IVPB 2 g (ANCEF) (COMPLETED) 1053 (Given - Provider: Fracisco Torres APRN, DIRK, D.N.P.)1127 (Anesthesia Volume Adjustment - Provider: Fracisco Torres APRN, DIRK, D.N.P.) 2 g (rounded from 2.43 g = 25 mg/kg ? 97.2 kg), intravenous, at 220 mL/hr, Administer over 30 Minutes, Once, On e 08/11/18 at 1030, For 1 dose, Intra-Op, Preoperatively within 1 hour prior to surgical incision premix bag, Drug Monitoring Pr ogram: Pharmacist to adjust medication dosing based on indication and drug clearance factors., Indications: Prophylaxis, surgical Continuous Medication Order 08/09/2018 08/10/2018 08/11/2018 lactated ringers 1045 (New Bag - Provider: Hawa Son R.N.)1055 (Rate/Dose Verify - Provider: Fracisco Torres APRN, DIRK, D.N.P.)1127 (Anesthesia Volume Adjustment - Provider: Fracisco Torres APRN, DIRK, D.N.P.)1230 (Stopped - Provider: Monika Meza R.N.) 20 mL/hr, intravenous, at 20 mL/hr, Cont inuous, Starting e 08/11/18 at 1030, Pre-Op PRN Medication Order 08/09/2018 08/10/2018 08/11/2018 dexamethasone injection 4 mg (DECADRON) 4 mg, intravenous, Once as needed, nause a, vomiting, Starting e 08/11/18 at 1132, For 1 dose, PACU & Post-Op, Give only if NOT given during the pre or intraoperative period. If ondansetron ordered, give dexamethasone with first dose of ondansetron. droperidol injection 0.625 mg (INAPSINE) 0.625 mg, intravenous, Every 6 hours PRN , nausea, vomiting, Starting 08/11/18 at 1132, For 48 hours, PACU & Post-Op, Total of 3 doses in 24 hour period. RASS must be -2 or higher to administer. R eassess for nausea or vomiting after at least 10 minutes. If nausea or vomiting persists administer next ordered antiemetic medications (order for antiemetic medication administration ondansetron then d roperidol then promethazine)., Indications: Nausea and Vomiting fentaNYL injection 25 mcg (SUBLIMAZE) 25 mcg, intravenous, Every 2 min PRN, Fo r pain 4 or greater (maximum 100 mcg). If max dose of Fentanyl is reached and if pain is greater than 4, discontinue Fentanyl: give Hydromorphone, Starting 08/11/18 at 1132, PACU & Post-Op HYDROmorphone injection 0.5 mg (DILAUDID) 0.5 mg, intravenous, Every 5 min PRN, mo derate pain or score 4-6 of 10, severe pain or score 7-10 of 10, Starting 08/11/18 at 1132, For 4 doses, PACU & Post-Op, Up to maximum total dose of 2 mg ioversol 240 mg iodine/mL 50 mL in NaCl 0.9% 100 mL intravenous solution (CANCELED) 1103 (Given - Provid er: Jesus Alberto Velez M.D. - Comment: Contrast) As needed, Starting 08/11/18 at 1103, Intra-Op ondansetron (PF) injection 4 mg (ZOFRAN) 4 mg, intravenous, Every 6 hours PRN, na usea, vomiting, Starting 08/11/18 at 1132, For 48 hours, PACU & Post-Op, Reassess for nausea or vomiting after at least 10 minutes. If nausea or vomiting p ersists administer next ordered antiemet ic medications (order for antiemetic medication administration ondansetron then droperidol then promethazine). promethazine injection 6.25 mg (PHENERGAN) 6.25 mg, intravenous, Every 6 hours PRN, nausea, vomiting, Starting 08/11/18 at 1132, For 48 hours, PACU & Post-Op, RASS must be -2 or higher to administer. Reassess for nausea/vomiting after at least 10 minutes. If nausea or vomiting persists administer next ordered antiemetic medications (order for antiemetic medication administration ondansetron then droperidol then promethazine). documented in this encounter Care Teams Dredge Deckhand Relationship Specialty Start Date End Date Gabrielle Jara M.D. PCP - General Family Medicine 10/04/[address] [place] [address] documented as of this encounter
--- OUTSIDE RECORDS SUMMARY | 2021-11-21 03:03 | XMS_ITS | Encounter Summary ---
:1990 Author Organization [facility] Address [address] [place] [address] Care Team Providers Name Role Phone Gabrielle Jara M.D. Primary Care Provider Encounter Details Date Type Department Care Team Description 09/10/2018 Ancillary Procedure Department of Laboratory Medicine Social History Tobacco Use Types Packs/Day Years [...] Name Priority Date/Time Associated Diagnosis Comme nts PATHOLOGY IMAGE Routine 09/10/2018 12:00 PM Resul ts for this EXAM CDT procedure are i n the results section. documented in this encounter Results Specimen-Pathology Image Exam (09/10/2018 12:00 PM CDT) Specimen (Source) Anatomical Location Collection Method / Collectio n Time Received Time / Laterality Volume Narrative IIMS - 09/10/2018 5:49 PM CDT This order has been created and auto-finalized to support the import of images acquired without order. The clini poncho documentation to support these images can be found on the encounter lanny t produced images. Provider Not In System IMG NON RAD IMAGING PROCEDUR ES Performing Organization Address City/State/ZIP Code Phon e Number IIMS IIMS NA documented in this encounter Visit Diagnoses Not on filedocumented in this encounter Care Teams Trade Mark Examiner Relationship Specialty Start Date End Date Gabrielle Jara M.D. PCP - General Family Medicine 10/04/13 [address] [place] [address] documented as of this encounter
--- OUTSIDE RECORDS SUMMARY | 2021-11-21 03:03 | XMS_ITS | Encounter Summary ---
:1990 Author Organization [facility] Address [address] [place] [address] Care Team Providers Name Role Phone Gabrielle Jara M.D. Primary Care Provider Reason for Referral Outpatient (Routine) - Closed Specialty Diagnoses / Procedures Referred By Contact Refer red To Contact Diagnoses Hydronephrosis Jesus Alberto Velez M.D. [facility] [place] [facility] Procedures NM Kidney with Lasix [place] KIDNEY VAS FLOW W DRUG SNGL [place] KIDNEY VAS FLOW W DRUG SNGL [place] KIDNEY VAS FLOW W DRUG SNGL [address] [place] [phone] Referral ID Status Reason Start Date Expiration Date Visits Requ ested Visits Authorized [id number] Closed 08/11/2018 08/11/2019 6 6 Reason for Visit Outpatient (Routine) - Closed Specialty Diagnoses / Procedures Referred By Contact Refer red To Contact Diagnoses Hydronephrosis Jesus Alberto Velez M.D. [facility] [place] [facility] Procedures NM Kidney with Lasix [place] KIDNEY VAS FLOW W DRUG SNGL HC KIDNEY VAS FLOW W DRUG SNGL [place] KIDNEY VAS FLOW W DRUG SNGL [address] [place] [phone] Referral ID Status Reason Start Date Expiration Date Visits Requ ested Visits Authorized [id number] Closed 08/11/2018 08/11/2019 6 6 Encounter Details Date Type Department Care Team Description 08/12/2018 Hospital Encounter Department of Radiology Anatoliy Velez, Hydronephrosis in [place], [place] kayla Hodge [address] [facility] [address] [place] [address] PAMELA Acharya [phone] Social History Tobacco Use Types Packs/Day Years [...] on file documented as of this encounter Medications at Time of Discharge [...] Acute Pain. documented as of this encounter Progress Notes Pancho Rocha RBrisa. - 08/12/2018 3:59 PM CDT Attempt to call, phone beeps. Unable to leave message. No other phone contact information. Isabelle Andrew PA-C will follow up and continue to try to contact pt. documented in this encounter Plan of Treatment Not on filedocumented as of this encounter Procedures Procedure Name Priority Date/Time Associated Diagnosis Comme nts NM KIDNEY WITH RAD - Routine 08/12/2018 2:44 Hydronephrosis Results for LASIX (most inpatients PM CDT this proced ure and all are in the outpatients) results section. documented in this encounter Results NM Kidney [...] 3) , 9.6 millicurie Furosemide, entered in [facility] Procedure Note Celestino Mazariegos M.D. - 08/12/2018Formatt [...] 3) , 9.6 millicurie Furosemide, entered in [facility] IMPRESSION: 1. Split function: Left kidney 6%, right kidney 94%. 2. Normal right kidney. 3. Poor left kidney flow, cortical trans it and excretion. Jesus Alberto Velez M.D. IMG NM PROCEDURES documented in this encounter Visit Diagnoses Diagnosis Hydronephrosis documented in this encounter Administered Medications Inactive Administered Medications - up to 3 most recent administrations Medication Order MAR Action Action Date Dose Rate Site furosemide injection 20 mg (LASIX) Given 08/12/2018 2:45 PM CDT 20 mg 20 mg, intravenous, Once, On Fri08/12/18 at 1230, For 1 dose sodium chloride 0.9 % injection 10 mL Given 08/12/2018 2:44 PM CDT 10 mL 10 mL, intravenous, As needed, line care, Starting on Fri08/12/18 at 1254 technetium Tc 99m mertiatide (Tc-99m Given 08/12/2018 1:00 PM CDT 9.6 millicuries MAG3) 9.6 millicurie, intravenous, Once, On Fri08/12/18 at 1300, For 1 dose documented in this encounter Care Teams Manager News Relationship Specialty Start Date End Date Gabrielle Jara M.D. PCP - General Family Medicine 10/04/[address] [place] [address] documented as of this encounter
--- OUTSIDE RECORDS SUMMARY | 2021-11-21 03:03 | XMS_ITS | Encounter Summary ---
:1990 Author Organization [facility] Address [address] [place] [address] Care Team Providers Name Role Phone Gabrielle Jara M.D. Primary Care Provider Encounter Details Date Type Department Care Team Description 08/10/2018 Clinical Communication Department of Urology Wilma Kauffman R.N. in [facility] [address] [phone] Social History Tobacco Use Types Packs/Day [...] this encounter Miscellaneous Notes Telephone Encounter - Wilma Kauffman R.N. - 08/10/2018 5:25 PM CDT Vandana, just a friendly reminder to sign patient's pre op. Date of surgery is tomorrow, 08/11/18. Thank you! documented in this encounter Plan of Treatment Not on filedocumented as of this encounter Visit Diagnoses Not on filedocumented in this encounter Care Teams Contact Center Representative Relationship Specialty Start Date End Date Gabrielle Jara M.D. PCP - General Family Medicine 10/04/13 [address] [place] [address] documented as of this encounter
--- OUTSIDE RECORDS SUMMARY | 2021-11-21 03:03 | XMS_ITS | Encounter Summary ---
:1990 Author Organization [facility] Address [address] [place] [address] Care Team Providers Name Role Phone Gabrielle Jara M.D. Primary Care Provider Reason for Visit Reason Comments Flank Pain left side flank pain, starte d last night, Hx of kidney infections Encounter Details Date Type Department Care Team Description 07/30/2018 Office Visit Department of Family Chantal Conde equency Urinary (Primary Dx); Medicine, Hadley Stern P.A.-C., P.A. Pyelo nephritis Acute [facility], in [address] [place] [phone] Social History Tobacco Use Types Packs/Day Years Used Date Smoking Tobacco: Former Smokeless Tobacco: Never Alcohol Use Standard Drinks/Week Comments Yes 0 (1 standard drink = 0.6 oz pure alcoho l) Sex Assigned at Date Recorded Not on file documented as of this encounter Last Filed Vital Signs Vital Sign Reading Time Taken Comments Blood Pressure 149/87 07/30/2018 10:17 AM CDT Pulse 89 07/30/2018 10:17 AM CDT Temperature 36.8 ??C (98.2 ??F) 07/30/2018 10:17 AM CDT Respiratory Rate - - Oxygen Saturation 98% 07/30/2018 10:17 AM CDT Inhaled Oxygen Concentration - - Weight 97.7 kg (215 lb 6.2 oz) 07/30/2018 10:17 AM CDT Height - - Body Mass Index 30.49 03/03/2018 10:17 AM SLIVER LAPPER documented in this encounter Progress Notes Chantal Conde P.A.-C. - 07/30/2018 10:30 AM CDT SUBJECTIVE CHIEF COMPLAINT / REASON FOR VISIT Cherry Alcantara is a 28 y.o. female who presents for evaluation of Flank Pain (left side flank pain, started last night, Hx of kidney infections ). HISTORY OF PRESENT ILLNESS She woke up at 1 am with left flank pain. She reports nausea and vomiting. No urinary frequency, urgency or dysuria. She has a history of a kidney infection. She is on OCP, LMP was 2 weeks ago and it was normal. REVIEW OF SYSTEMS A brief review of systems was negative except for that mentioned in the history of present of illness. Current Outpatient Medications Medication Sig ??? MARLISSA 0.15-0.03 mg per tablet Take 1 tablet by mouth daily. No Known Allergies OBJECTIVE PHYSICAL EXAMINATION Vitals: 07/30/18 1017 BP: 149/87 Pulse: 89 Temp: 36.8 ??C SpO2: 98% Body mass index is 30.49 kg/m??. General: Patient is uncomfortable, but in no distress. Capable of full communication without difficulty. Patient is polite and cooperative. HEENT: Normocephalic. EOMI. Neck: No nodes, no thyromegaly. Heart: Regular rate and rhythm. No murmurs, gallops or rubs noted. Lungs: Clear to auscultation bilaterally. No expiratory wheeze. No accessory muscles of respiration noted. Abdomen:left flank pain on exam, other hickey remainder of abdomen is nontender to palpation. No hepatosplenomegaly. No mass. Extremities: No neurovascular compromise. No cyanosis, clubbing or edema. Skin: No atypical moles or skin changes. Neuro: Alert and oriented x3, nonfocal, moving all 4 extremities. Psych: Affect is appropriate. DIAGNOSTICS Results for orders placed or performed in visit on 07/30/18 Urinalysis with Microscopic if Indicated Result Value Ref Range Source Midstream Clarity Clear Clear Color Yellow Blood Trace (A) Negative Nitrite Negative Negative Leukocyte Esterase Trace (A) Negative Protein 100 (A) mg/dL Glucose Negative Negative mg/dL Ketones, QI(U) >=80 (A) Negative mg/dL Bilirubin Negative Negative pH 7.0 5.0 - 8.0 Specific [facility] 1.025 1.001 - 1.035 Urobilinogen 0.2 0.2 - 1.0 mg/dL ASSESSMENT / PLAN ASSESSMENT/PLAN: #1 Acute pyelonephritis Discussed UA findings. With history of pyelonephritis and abrupt onset and worsening of symptoms shewas given a shot of rocephin, Zofran for vomiting and Toradol for pain. Tomorrow she will start a course of Ciprofloxacin pending urine culture results. Patient was instructed to follow up in primary care if symptoms are worsening or there is no improvement over the next several days. Plan was discussed with patient and is in agreement with plan. All questions were answered, side effects of any/all new medications were discussed. Patient left in no acute distress. Ready to learn. No apparent learning barriers were identified. Learning preferences include listening. Explained diagnosis and treatment plan. Patient/Child/Caregiver expressed understanding of the content. Chantal Conde P.A.-C. documented in this encounter Plan of Treatment Not on filedocumented as of this encounter Procedures Procedure Name Priority Date/Time Associated Comments Diagnosis IRIS MICROSCOPIC, U Routine 07/30/2018 10:09 Resu lts for this AM CDT procedure are i n the results section. URINALYSIS WITH Routine 07/30/2018 10:09 Frequency Urinary Res ults for this MICROSCOPIC IF AM CDT procedure are in INDICATED, U the results section. documented in this encounter Results Bacterial Culture, Aerobic + Susc, Urine (07/30/2018 10:09 AM CDT) [facility] Method Time Signature Urine Culture Multiple organisms >10,000 cfu/mL present suggesting 07/31/2018 [facility] probable contamination 9:09 AM CDT [facility] Specimen Anatomical Collection Method Collection Time Receive d Time (Source) Location / / Volume Laterality Urine (Urine, 07/30/2018 10:09 07/30/2018 2:08 Midstream) AM CDT PM CDT Comment: Specimen Source Site: Urine Chantal Conde P.A.-C., P.A. LAB MICROBIOLOGY - [facility] ORDERABLES Performing Organization Address City/State/ZIP Code Phon e Number [address] [address] [facility] (ABNORMAL) Iris Microscopic, U (07/30/2018 10:09 AM CDT) athologist Signature White Blood 4-10 /hpf 07/30/2018 [facility] Cells 12:36 PM CDT [facility] Comment: ----REFERENCE VALUE---- Males: 0-3 Females: 0-10 Unknown: 0-10 Red Blood Cells Occ-2 0 - 2 /hpf 07/30/2018 12:36 PM CDT [facility] Squamous Cells 4-10 /hpf 07/30/2018 12:[address] [facility] [place] [facility] Bacteria Present (A) None Seen 07/30/2018 12:36 PM CDT [facility] Specimen Anatomical Collection Method Collection Time Receive d Time (Source) Location / / Volume Laterality Urine 07/30/2018 10:09 07/30/2018 AM CDT 12:34 PM CDT Chantal Conde P.A.-C., P.A. LAB URINE ORDERABLES Performing Organization Address City/State/ZIP Code Phon e Number [facility] [address] [place] [address] [place] [facility] (ABNORMAL) Urinalysis with Microscopic if Indicated (07/30/2018 10:09 AM CDT) athologist Signature Source Midstream 07/30/2018 [facility] 10:17 AM T [facility] Clarity Clear Clear 07/30/2018 [facility] 10:17 AM [facility] [place] [facility] Color Yellow 07/30/2018 [facility] 10:17 AM T [facility] Comment: ----REFERENCE VALUE---- Colorless Yellow In Blood Trace (A) Negative 07/30/2018 10:17 AM CDT [facility] [place] [facility] Nitrite Negative Negative 07/30/2018 10:17 AM CDT [facility] [place] [facility] Leukocyte Esterase Trace (A) Negative 07/30/2018 10:17 AM CDT [facility] [place] [facility] Protein 100 (A) mg/dL 07/30/2018 10:17 AM CDT [facility] [place] [facility] Comment: ----REFERENCE VALUE---- Negative Trace Glucose Negative Negative mg/dL 07/30/2018 10:17 AM [facility] [place] [facility] Ketones, QI(U) >=80 (A) Negative mg/dL 07/30/2018 10:[address] [facility] [place] [facility] Bilirubin Negative Negative 07/30/2018 10:17 AM [facility] pH 7.0 5.0 - 8.0 07/30/2018 10:17 AM [facility] Specific [facility] 1.025 1.001 - 1.035 07/30/2018 10:[address] [facility] [place] Urobilinogen 0.2 0.2 - 1.0 mg/dL 07/30/2018 10:[address] [facility] [place] Specimen Anatomical Collection Method Collection Time Receive d Time (Source) Location / / Volume Laterality Urine (Urine, 07/30/2018 10:09 07/30/2018 Clean Catch) AM CDT 10:10 AM CDT Chantal Conde P.A.-C., P.A. LAB URINE ORDERABLES Performing Organization Address City/State/ZIP Code Phon e Number [facility] [address] [place], [place] [address] [address] [place] [address] LAB documented in this encounter Visit Diagnoses Diagnosis Frequency Urinary - Primary Pyelonephritis Acute documented in this encounter Administered Medications Inactive Administered Medications - up to 3 most recent administrations Medication Order MAR Action Action Date Dose Rate Site cefTRIAXone injection 1 g Given 07/30/2018 11:00 1 g Left Ventrogluteal (ROCEPHIN) AM CDT 1 g, intramuscular, Once, On Thais 07/30/18 at 1230, For 1 dose, For IM administration ONLY. For IM injection ONLY Recon with NaCl 0.9% in the amount listed for the vial. Draw up and administer as indicated for the dose. 250 mg vial: add 0.9 mL 1 g vial: add 2.1 mL 500 mg vial: add 1 mL 2 g vial: add 4.2 mL , Drug Monitoring Program: Pharmacist to adjust medication dosing based on indication and drug clearance factors., Indications: Lower UTI, Non-Catheter ketorolac intramuscular Given 07/30/2018 11:00 AM CDT 60 mg Right Ventrogluteal injection 60 mg (TORADOL) 60 mg, intramuscular, Once, On Thais 07/30/18 at 1045, For 1 dose, Adult IV push rate: Over 15 seconds. Peds IV push rate: Over 1 minute. 60 mg dose only for IM, not recommended for IV. ondansetron (PF) injection 4 Given 07/30/2018 11:00 AM CDT 4 mg Right Ventrogluteal mg (ZOFRAN) 4 mg, intramuscular, Once, On Thais 07/30/18 at 1230, For 1 dose documented in this encounter Care Teams Emergency Services Professional Relationship Specialty Start Date End Date Gabrielle Jara M.D. PCP - General Family Medicine 10/04/13 [address] [place] [address] documented as of this encounter
--- OUTSIDE RECORDS SUMMARY | 2021-11-21 03:03 | XMS_ITS | Encounter Summary ---
:1990 Author Organization [facility] Address [address] [place] [address] Care Team Providers Name Role Phone Gabrielle Jara M.D. Primary Care Provider Reason for Visit Reason Onset Date Comments Results 08/04/2018 Encounter Details Date Type Department Care Team Description 08/04/2018 Clinical Communication Department of [facility] Medicine, Arco Lauryn De Los Santos [facility], [id number] [place] [address] [phone] (Work) [phone] Social History Tobacco Use Types Packs/Day Years Used Date Smoking Tobacco: Former Smokeless Tobacco: Never Alcohol Use Standard Drinks/Week Comments Yes 0 (1 standard drink = 0.6 oz pure alcoho l) Sex Assigned at Date Recorded Not on file documented as of this encounter Miscellaneous Notes Telephone Encounter - Marycruz Nayak L.PPedroNPedro - 08/05/2018 10:14 AM CDT Patient notified see other encounter. Telephone Encounter - Vandana Young P.A.-C. - 08/05/2018 7:51 AM CDT Please see results note. Telephone Encounter - Tali Pinto - 08/04/2018 6:05 PM CDT Reason for Communication: Calling to get her results from today's test Current Can Nursing/Provider leave a detailed message: did not asked Did the patient refuse triage through Nurse line? (for symptom based concerns):N/a Action Needed: Nurse to call back with results Name of Medication (if relevant): n/a documented in this encounter Plan of Treatment Not on filedocumented as of this encounter Visit Diagnoses Not on filedocumented in this encounter Care Teams Wool Hat Finisher Relationship Specialty Start Date End Date Gabrielle Jara M.D. PCP - General Family Medicine 10/04/13 [address] [place] [address] documented as of this encounter
--- OUTSIDE RECORDS SUMMARY | 2021-11-21 03:03 | XMS_ITS | Encounter Summary ---
:1990 Author Organization [facility] Address [address] [place] [address] Care Team Providers Name Role Phone Gabrielle Jara M.D. Primary Care Provider Reason for Visit Outpatient (Routine) - Closed Specialty Diagnoses / Procedures Referred By Contact Refer red To Contact General Surgery Diagnoses Obstruction Ureteral Congenital Isabelle Andrew, [facility] P.A.-C. [address] [place] [phone] Referral ID Status Reason Start Date Expiration Date Visits Requ ested Visits Authorized [id number] Closed 08/06/2018 08/06/2019 1 1 Encounter Details Date Type Department Care Team Description 08/07/2018 Telemedicine Department of General Isabelle Andrew [facility] Medical Exam (Primary Dx); Surgery in Magali Norris, P.A.-CPedro Obstruction Ureteral Congenital [place] [address] [place] [phone] Social History Tobacco Use Types Packs/Day Years Used Date Smoking Tobacco: Former Smokeless Tobacco: Never Alcohol Use Standard Drinks/Week Comments Yes 0 (1 standard drink = 0.6 oz pure alcoho l) Sex Assigned at Date Recorded Not on file documented as of this encounter Progress Notes Thuy Tamez R.N. - 08/07/2018 2:15 PM CDT This patient was called for a KARRIE visit on 08/07/18 for surgery scheduled on 08/11/[address] Velez. Surgical Nurse Oracle Applications Analyst Skin Alert Assessment: Complete this section only if the patient is greater than or equal to 18 y/o BMI <19 or >40: no Documented risk factors that indicate higher risk for pressure ulcer? no Do you have impaired sensation? no Is patient chair-bound or unable to reposition themselves? no Anesthesia Risk Assessment: Do you have an implanted cardiac device? no. Do you have difficulties lying flat? no Comment: Do you have any episcopalian or other objection to having a blood transfusion? no Teaching: Preoperative education was done with (x) patient () parent () other. It was confirmed the patient/family member had NOT yet received the following preoperative educationsheets: Checklist For Surgical Patients ([id number]),???Surgical Site Infections ([id number]), Speak Up: Antibiotics ([id number]), ???Smoke Free, Advice for patients and visitors?? ([id number]), ???Your Guide to Pain Management ([id number]), Managing Your Pain After Surgery ([id number]) or Acute Pain and the Healing Process ([id number]) with the Integrative Medicine and Health ([id number]), and ???Appointments Required Before Your Surgery?? (no ).These were reviewed in detail. Patient/Parent is ready to learn, no apparent learning barriers were identified. Reviewed diagnosis and treatment plan; patient/parent verbalized understanding through teach back. All questions were answered. Patient/Parent has contact information and understands the need to call with any questions orconcerns. Post op appointments: 1st po with surgeon or physician assistant department manager: () made (x)TBD documented in this encounter Plan of Treatment Not on filedocumented as of this encounter Visit Diagnoses Diagnosis Preanesthetic Medical Exam - Primary Obstruction Ureteral Congenital documented in this encounter Care Teams Lunchroom Food Service Supervisor Relationship Specialty Start Date End Date Gabrielle Jara M.D. PCP - General Family Medicine 10/04/[address] [place] [phone] documented as of this encounter
--- OUTSIDE RECORDS SUMMARY | 2021-11-21 03:03 | XMS_ITS | Encounter Summary ---
:1990 Author Organization [facility] Address [address] [place] [address] Care Team Providers Name Role Phone Gabrielle Jara M.D. Primary Care Provider Encounter Details Date Type Department Care Team Description 08/25/2018 Hospital Encounter Department of Darleen Faustu ction Ureteral Laboratory Medicine S, P.A.-C. Congenital and Pathology, [address] [place] [address], in [place], [place] [address] [place] [address] [place], [place] (Work) [phone] Social History Tobacco Use Types Packs/Day Years [...] (six) hours as needed for pain. Can tack picker over the counter sennosides (SENNA) 8.6 [...] Pain Exception. documented as of this encounter Plan of Treatment Not on filedocumented as of this encounter Procedures Procedure Name Priority Date/Time Associated Diagnosis Comme nts ABORH, RBC Routine 08/25/2018 2:28 PM Obstruction Ureteral R esults for this CDT Congenital procedure are i n the results section. CBC WITH Routine 08/25/2018 2:28 PM Obstruction Ureteral R esults for this DIFFERENTIAL, B CDT Congenital procedure ar e in the results section. BASIC METABOLIC Routine 08/25/2018 2:28 PM Obstruction Uretera l Results for this PANEL, S/P CDT Congenital procedure are i n the results section. documented in this encounter Results ABORh, RBC (08/25/2018 2:28 PM CDT) Analysis Performed At Patho logist Time Signature ABORh A Pos Not applicable 08/25/2018 [facility] 6:22 PM CDT [facility]ATOR[facility] - [place] Specimen Anatomical Collection Method Collection Time Receive d Time (Source) Location / / Volume Laterality Blood (Blood, 08/25/2018 2:28 PM 08/26/19 3:38 Venous) CDT PM CDT Darleen Faust P.A.-C. LAB BLOOD BANK TEST ORDERABL ES Performing Organization Address City/State/ZIP Code Phon e Number [facility] - [address] [place], [place] [address] [place] Basic Metabolic Panel (08/25/2018 2:28 PM CDT) P athologist Signature Potassium, S 4.1 3.6 - 5.2 08/25/2018 [facility] mmol/L 3:27 PM CDT [facility] [place] Sodium, S 139 135 - 145 08/25/2018 [facility] mmol/L 3:27 PM CDT [facility] [place] Chloride, S 102 98 - 107 08/25/2018 [facility] mmol/L 3:27 PM CDT [facility] [place] Bicarbonate, S 25 22 - 29 08/25/2018 [facility] mmol/L 3:27 PM CDT [facility] [place] Anion Gap 12 7 - 15 08/25/2018 [facility] 3:27 PM CDT [facility] [place] BUN (Blood 13 6 - 21 08/25/2018 [facility] Urea mg/dL 3:27 PM CDT LABORATORIES - Nitrogen), S [place] Creatinine, S 0.83 0.59 - 08/25/2018 [facility] 1.04 mg/dL 3:27 PM CDT LABORATORIES [facility] eGFR-Non >90 >=60 08/25/2018 [facility] Black/ mL/min/BSA 3:27 PM CDT LABORATORIES - [facility] Comment: ----ADDITIONAL INFORMATION---- Estimated GFR calculated using the 2009 CKD_EPI creatinine equation. eGFR-Black/ >90 >=60 mL/min/BSA 08/25/2018 3:27 [facility] CDT [facility] [place] Comment: ----ADDITIONAL INFORMATION---- Estimated GFR calculated using the 2009 CKD_EPI creatinine equation. Calcium, Total, S 8.7 8.6 - 10.0 mg/dL 08/25/2018 3:27 PM [facility] CDT LABORATORIES [facility] Glucose, S 89 70 - 140 mg/dL 08/25/2018 3:27 PM [facility] CDT LABORATORIES [facility] Specimen Anatomical Collection Method Collection Time Receive d Time (Source) Location / / Volume Laterality Blood (Blood, 08/25/2018 2:28 PM 08/26/19 2:52 Venous) CDT PM CDT Darleen Faust P.A.-C. LAB BLOOD ADD-ON Performing Organization Address City/State/ZIP Code Phon e Number [facility] - [address] [place], [place] [address] [place] (ABNORMAL) CBC with Differential, Blood (08/25/2018 2:28 PM CDT) [facility] Method Time Signature Hemoglobin 15.0 11.6 - 08/25/2018 [facility] 15.0 g/dL 3:00 PM CDT [facility] [place] Hematocrit 44.9 35.5 - 08/25/2018 [facility] 44.9 % 3:00 PM CDT [facility] [place] Erythrocytes 4.78 3.92 - 08/25/2018 [facility] 5.13 3:00 PM CDT LABORATORIES - x10(12)/L [place] MCV 93.9 78.2 - 08/25/2018 [facility] 97.9 fL 3:00 PM CDT [facility] [place] RBC Distrib 12.0 (L) 12.2 - 08/25/2018 [facility] Width 16.1 % 3:00 PM CDT [facility] [place] Platelet Count 241 157 - 371 08/25/2018 [facility] x10(9)/L 3:00 PM CDT [facility] [place] Leukocytes 8.5 3.4 - 9.6 08/25/2018 [facility] x10(9)/L 3:00 PM CDT [facility] [place] Neutrophils 5.50 1.56 - 08/25/2018 [facility] 6.45 3:00 PM CDT LABORATORIES - x10(9)/L [place] Lymphocytes 1.96 0.95 - 08/25/2018 [facility] 3.07 3:00 PM CDT LABORATORIES - x10(9)/L [place] Monocytes 0.75 0.26 - 08/25/2018 [facility] 0.81 3:00 PM CDT LABORATORIES - x10(9)/L [place] Eosinophils 0.26 0.03 - 08/25/2018 [facility] 0.48 3:00 PM CDT LABORATORIES - x10(9)/L [place] Basophils <0.03 0.01 - 08/25/2018 [facility] 0.08 3:00 PM CDT LABORATORIES - x10(9)/L [place] Specimen Anatomical Collection Method Collection Time Receive d Time (Source) Location / / Volume Laterality Blood (Blood, 08/25/2018 2:28 PM 08/26/19 19 2:52 Venous) CDT PM CDT Darleen Faust P.A.-C. LAB BLOOD ADD-ON Performing Organization Address City/State/ZIP Code Phon e Number [facility] - [address] [place], [place] [address] [place] documented in this encounter Visit Diagnoses Diagnosis Obstruction Ureteral Congenital documented in this encounter Care Teams Tile Fitter Relationship Specialty Start Date End Date Gabrielle Jara M.D. PCP - General Family Medicine 10/04/[address] [place] [address] documented as of this encounter
--- OUTSIDE RECORDS SUMMARY | 2021-11-21 03:03 | XMS_ITS | Encounter Summary ---
:1990 Author Organization [facility] Address [address] [place] [address] Care Team Providers Name Role Phone Gabrielle Jara M.D. Primary Care Provider Reason for Visit Reason Onset Date Comments Urology Surgery 08/07/2018 Encounter Details Date Type Department Care Team Description 08/07/2018 Clinical Communication Department of Pancho Rocha [facility] [place] [phone] [place] [address] (Work) [place] [address] Social History Tobacco Use Types Packs/Day Years Used Date Smoking Tobacco: Former Smokeless Tobacco: Never Alcohol Use Standard Drinks/Week Comments Yes 0 (1 standard drink = 0.6 oz pure alcoho l) Sex Assigned at Date Recorded Not on file documented as of this encounter Miscellaneous Notes Telephone Encounter - Pancho Rocha R.N. - 08/07/2018 11:52 AM CDT Scheduled LEFT RETROGRADE PYELOGRAM WITH LEFT URETERAL STENT PLACEMENT on 08/11/18 to be performed by Dr. Jesus Alberto Velez Surgery booklet was reviewed and pat will pick this up. Nurse visit- 08/07/18 MD pre op appt-08/10/18 No Labs Ordered. documented in this encounter Plan of Treatment Not on filedocumented as of this encounter Visit Diagnoses Not on filedocumented in this encounter Care Teams Service Center Assistant Relationship Specialty Start Date End Date Gabrielle Jara M.D. PCP - General Family Medicine 10/04/13 [address] [place] [address] documented as of this encounter
--- OUTSIDE RECORDS SUMMARY | 2021-11-21 03:03 | XMS_ITS | Encounter Summary ---
:1990 Author Organization [facility] Address [address] [place] [address] Care Team Providers Name Role Phone Gabrielle Jara M.D. Primary Care Provider Reason for Referral Outpatient (Routine) - Closed Specialty Diagnoses / Procedures Referred By Contact Refer red To Contact Diagnoses Obstruction Ureteral Congenital Jesus Alberto Velez M.D. [facility] Region Procedures FL Fluoro Less Than 1 Hour NM FLUOROSCOPY EXAM UP TO 1 HR HC FLUOROSCOPY EXAM UP TO 1 HR NM FLUOROSCOPY EXAM UP TO 1 [address] [place] [address] Referral ID Status Reason Start Date Expiration Date Visits Requ ested Visits Authorized [id number] Closed 08/11/2018 08/11/2019 1 1 Reason for Visit Auth/Cert Specialty Diagnoses / Procedures Referred By Contact Refer alphonso To Contact Diagnoses Obstruction Ureteral Congenital Procedures NM CYSTOURETHROSCOPY URETER CATH NM CYSTHRSCPY W INS URETERAL STNT LEFT RETROGRADE PYELOGRAM and LEFT URETERAL STENT PLACEMENT Referral ID Status Reason Start Date Expiration Date Visits Requ ested Visits Authorized [id number] 1 1 Encounter Details Date Type Department Care Team Description 08/11/2018 Hospital Encounter Department of Araceli Velez ion Ureteral Radiology in [place] Granda M.D. [place], [place] [address] [place] [phone] [phone] Social History Tobacco Use Types Packs/Day Years [...] Acute Pain. documented as of this encounter Plan of Treatment Not on filedocumented as of this encounter Procedures Procedure Name Priority Date/Time Associated Comments Diagnosis FL FLUORO LESS RAD - Routine 08/11/2018 11:32 Obstruction Results for this THAN 1 HOUR (most inpatients AM CDT Ureteral procedure a re in and all Congenital the results outpatients) section. documented in this encounter Results FL Fluoro Less Than 1 Hour (08/11/2018 11:32 AM CDT) Specimen (Source) Anatomical Location Collection Method / Collectio n Time Received Time / Laterality Volume Narrative [id number] - 08/11/2018 11:36 AM CDT This exam does not require a radiologist review or interpretation. Please refer to the patient's medical record on this date for clinical details. Jesus Alberto SCOTT FLUOROSCOPY PROCEDURES Performing Organization Address City/State/ZIP Code Phon e Number [id number] NA documented in this encounter Visit Diagnoses Diagnosis Obstruction Ureteral Congenital documented in this encounter Care Teams Bridge Construction Inspector Relationship Specialty Start Date End Date Gabrielle Jara M.D. PCP - General Family Medicine 10/04/[address] [place] [address] documented as of this encounter
--- OUTSIDE RECORDS SUMMARY | 2021-11-21 03:03 | XMS_ITS | Encounter Summary ---
:1990 Author Organization [facility] Address [address] [place] [address] Care Team Providers Name Role Phone Gabrielle Jara M.D. Primary Care Provider Encounter Details Date Type Department Care Team Description 08/06/2018 Clinical Communication Department of Urology Isabelle Andrew, in [facility] kayla ReyesASouleymane [address] [facility] [address] [place] [phone] Social History Tobacco Use Types Packs/Day Years Used Date Smoking Tobacco: Former Smokeless Tobacco: Never Alcohol Use Standard Drinks/Week Comments Yes 0 (1 standard drink = 0.6 oz pure alcoho l) Sex Assigned at Date Recorded Not on file documented as of this encounter Miscellaneous Notes Telephone Encounter - Pancho Rocha RDeepali - 08/07/2018 12:05 PM CDT Patient called back. Surgical booklet gone over with pt. 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 Telephone Encounter - Pancho Rocha R.N. - 08/07/2018 11:59 AM CDT All appointments are scheduled, letter written and booklet complete. I called patient to coal picker surgical booklet and to go over this with the patient. I left a message for her to call back [phone] Telephone Encounter - Isabelle Andrew P.A.-C. - 08/06/2018 5:14 PM CDT New listin08/11/18 I called patient with this info, she understands she needs to schedule POEs promptly, please arrangefor her to coal picker surgery packet. Surgical listing: Cystoscopy and left retrograde pyelogram and left ureteral stent placement Surgery date: 08/11/2018 Primary care KARRIE: To be scheduled Surgery nurse shoe planner KARRIE: To be scheduled, phone Urine culture: Already completed, negative documented in this encounter Plan of Treatment Not on filedocumented as of this encounter Visit Diagnoses Not on filedocumented in this encounter Care Teams Surgical Tech Relationship Specialty Start Date End Date Gabrielle Jara M.D. PCP - General Family Medicine 10/04/13 [address] [place] [address] documented as of this encounter
--- OUTSIDE RECORDS SUMMARY | 2021-11-21 03:03 | XMS_ITS | Encounter Summary ---
:1990 Author Organization [facility] Address [address] [place] [address] Care Team Providers Name Role Phone Gabrielle Jara M.D. Primary Care Provider Encounter Details Date Type Department Care Team Description 08/03/2018 Clinical Communication Department of Kayla Wilkinson, Medicine, N[facility], in [address] [facility] [address] [place] [address] [place], [place] (Work) [phone] Social History Tobacco Use Types Packs/Day Years Used Date Smoking Tobacco: Former Smokeless Tobacco: Never Alcohol Use Standard Drinks/Week Comments Yes 0 (1 standard drink = 0.6 oz pure alcoho l) Sex Assigned at Date Recorded Not on file documented as of this encounter Miscellaneous Notes Telephone Encounter - Rocio Guerrero LPedroP.N. - 08/03/2018 1:26 PM CDT See lab results encounter. Telephone Encounter - Lorraine Zimmerman - 08/03/2018 1:11 PM CDT Reason for Communication: Pt got a voice message to return a phone call to the [facility]. Unknown if it was a nurse, butI don't see any active requests for appts or clinical communications. Please call her back if needed. Current Can Nursing/Provider leave a detailed message: yes Did the patient refuse triage through Nurse line: n/a Action Needed: call back documented in this encounter Plan of Treatment Not on filedocumented as of this encounter Visit Diagnoses Not on filedocumented in this encounter Care Teams Alarm Service Technician Relationship Specialty Start Date End Date Gabrielle Jara M.D. PCP - General Family Medicine 10/04/13 [address] [place] [address] documented as of this encounter
--- OUTSIDE RECORDS SUMMARY | 2021-11-21 03:03 | XMS_ITS | Encounter Summary ---
:1990 Author Organization [facility] Address [address] [place] [address] Care Team Providers Name Role Phone Gabrielle Jara M.D. Primary Care Provider Encounter Details Date Type Department Care Team Description 08/25/2018 Hospital Encounter Department of Darleen Faustu ction Ureteral Laboratory Medicine S, P.A.-C. Congenital and Pathology, [address] [place] [address], in [place], [place] [address] [place] [address] [place], [place] (Work) [phone] Social History Tobacco Use Types Packs/Day Years [...] (six) hours as needed for pain. Can garbage pick up man over the counter sennosides (SENNA) 8.6 mg [...] Name Priority Date/Time Associated Diagnosis Comme nts BACTERIAL CULTURE, Routine 08/25/2018 2:59 PM Obstruction Uret eral Results for this AEROBIC + SUSC, CDT Congenital procedure ar e in URINE the results section. documented in this encounter Results Bacterial Culture, Aerobic + Susc, Urine (08/25/2018 2:59 PM CDT) [facility] gist Method Time Signature Urine Culture No growth 08/26/2018 [facility] after 1 12:40 PM CDT LABORATORIES - day [facility] . Specimen Anatomical Collection Method Collection Time Receive d Time (Source) Location / / Volume Laterality Urine (Urine, 08/25/2018 2:59 PM 08/26/19 3:40 [facility]) CDT PM CDT Comment: Specimen Source Site: Urine Darleen Faust P.A.-C. LAB MICROBIOLOGY - GENERAL O RDERABLES Performing Organization Address City/State/ZIP Code Phon e Number [facility]ORATORIES - [address] [place], [place] [address] [facility] documented in this encounter Visit Diagnoses Diagnosis Obstruction Ureteral Congenital documented in this encounter Care Teams Check Out Cashier Relationship Specialty Start Date End Date Gabrielle Jara M.D. PCP - General Family Medicine 10/04/[address] [place] [address] documented as of this encounter
--- OUTSIDE RECORDS SUMMARY | 2021-11-21 03:03 | XMS_ITS | Encounter Summary ---
:1990 Author Organization [facility] Address [address] [place] [address] Care Team Providers Name Role Phone Gabrielle Jara M.D. Primary Care Provider Reason for Referral Outpatient (Routine) - Closed Specialty Diagnoses / Procedures Referred By Contact Refer august To Contact Urology Diagnoses Pain Left Upper Quadrant Pain Flank Vandana Young P.A.-[place] [address] [place], [place] [address] Referral ID Status Reason Start Date Expiration Date Visits Requ ested Visits Authorized [id number] Closed 08/05/2018 08/05/2019 1 1 Reason for Visit Reason Comments Follow-up 07/30 seen in [place] said kidney infection, constant left sided pain, nausea, alternating tylenol and ibuprofen, still having a lot of pain, also uses a heating pad Appointment Request (Routine) - Closed Specialty Diagnoses / Procedures Referred By Contact Abeba koch To Contact Family Medicine Referral ID Status Reason Start Date Expiration Date Visits Requ ested Visits Authorized [id number] Closed 08/03/2018 08/03/2019 1 Encounter Details Date Type Department Care Team Description 08/04/2018 Office Visit Department of Vandana Franklin onephrosis (Primary Dx); Medicine, Nirav De Los Santos P.A.-C. Atrophic Kidney; [place] [address] [address] Pain Left Upper Quadrant; [place], [place] Pain Flank [address] [phone] [place], [place] (Work) [phone] Social History Tobacco Use Types Packs/Day Years Used Date Smoking Tobacco: Former Smokeless Tobacco: Never Alcohol Use Standard Drinks/Week Comments Yes 0 (1 standard drink = 0.6 oz pure alcoho l) Sex Assigned at Date Recorded Not on file documented as of this encounter Last Filed Vital Signs Vital Sign Reading Time Taken Comments Blood Pressure 137/91 08/04/2018 1:31 PM CDT Pulse 96 08/04/2018 1:31 PM CDT Temperature 36.7 ??C (98.1 ??F) 08/04/2018 1:31 PM CDT Respiratory Rate 18 08/04/2018 1:31 PM CDT Oxygen Saturation 96% 08/04/2018 1:31 PM CDT Inhaled Oxygen Concentration - - Weight 97.2 kg (214 lb 4.6 oz) 08/04/2018 1:31 PM CDT Height - - Body Mass Index 30.34 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 - 08/04/2018 1:30 PM CDT SUBJECTIVE CHIEF COMPLAINT/REASON FOR VISIT Cherry Alcantara is a 28 y.o. female who presents for evaluation of Follow- up (07/30 seen in [place] said kidney infection, constant left sided pain, nausea, alternating tylenol and ibuprofen, still having a lot of pain, also uses a heating pad ). HISTORY OF PRESENT ILLNESS Kayleigh is a 28 year old female who presents today for evaluation of left sided flank and abdominal pain. The patient notes she awoke about 5 days ago with significant pain in the left back/flank. She felt nauseated and was vomiting. She has a history of kidney stones and kidney infection in the past and felt her symptoms were similar to previous infections. She was evaluated and treated for a presumedkidney infection, treated with Cipro. She notes her symptoms have improved some but she continues tohave significant pain and nausea. She is unable to lay on her back due to the pain in the left flank/back. She has been using a heating pad with some improvement. She notes her urge to urinate has changed as well and she no longer has that urge. She rates her pain at 4/10 in severity currently. Her last menstrual period 3 weeks ago (due for menstrual period soon). She takes control to prevent . The following portions of the patient's history were reviewed and updated as appropriate: allergies,current medications, medical history, social history and problem list. REVIEW OF SYSTEMS A brief review of systems was negative except for that mentioned in the history of present of illness. CURRENT MEDICATIONS Current Outpatient Medications Medication Sig ??? ciprofloxacin (CIPRO) 500 mg tablet Take 1 tablet (500 mg total) by mouth 2 (two) times a day for 10 days. ??? MARLISSA 0.15-0.03 mg per tablet Take 1 tablet by mouth daily. ALLERGIES/CONTRAINDICATIONS No Known Allergies OBJECTIVE PHYSICAL EXAMINATION Vital Signs: BP (!) 137/91 (BP Location: Left arm, Patient Position: Sitting, Cuff Size: Regular) Pulse 96 Temp 36.7 ??C (Temporal) Resp 18 Wt 97.2 kg SpO2 96% BMI 30.34 kg/m?? Body mass index is 30.34 kg/m??. General: Patient is in no distress. GI: Normal bowel sounds. Tenderness along the left upper quadrant. No rebound tenderness. Abdomen issoft. No hepatosplenomegaly Extremities: Tenderness over the left lumbar paraspinous muscles and left flank. : Left CVA tenderness. No right CVA tenderness Neuro: Alert and nonfocal Psych: Appropriate affect DIAGNOSTICS Results for orders placed or performed in visit on 08/04/18 Basic Metabolic Panel Result Value Ref Range Potassium, S 4.6 3.6 - 5.2 mmol/L Sodium, S 139 135 - 145 mmol/L Chloride, S 104 98 - 107 mmol/L Bicarbonate, S 24 22 - 29 mmol/L Anion Gap 11 7 - 15 Bld Urea Nitrog(BUN), S 15 6 - 21 mg/dL Creatinine, S 0.79 0.59 - 1.04 mg/dL eGFR-Non Black >90 >=60 mL/min/BSA eGFR-Black >90 >=60 mL/min/BSA Calcium, Total 9.4 8.6 - 10.0 mg/dL Glucose, S 99 70 - 140 mg/dL CBC with Differential, Blood Result Value Ref Range Hemoglobin 14.2 11.6 - 15.0 g/dL Hematocrit 41.8 35.5 - 44.9 % Erythrocytes 4.41 3.92 - 5.13 x10(12)/L MCV 94.8 78.2 - 97.9 fL RBC Distrib Width 12.5 12.2 - 16.1 % Platelet Count 281 157 - 371 x10(9)/L Leukocytes 8.6 3.4 - 9.6 x10(9)/L Neutrophils 5.76 1.56 - 6.45 x10(9)/L Lymphocytes 1.82 0.95 - 3.07 x10(9)/L Monocytes 0.76 0.26 - 0.81 x10(9)/L Eosinophils 0.23 0.03 - 0.48 x10(9)/L Basophils 0.03 0.01 - 0.08 x10(9)/L Urinalysis with Microscopic if Indicated Result Value Ref Range Source Midstream Clarity Clear Clear Color Yellow Blood Small (A) Negative Nitrite Negative Negative Leukocyte Esterase Negative Negative Protein Trace mg/dL Glucose Negative Negative mg/dL Ketones, QI(U) Negative Negative mg/dL Bilirubin Negative Negative pH 6.5 5.0 - 8.0 Specific [place] 1.015 1.001 - 1.035 Urobilinogen 0.2 0.2 - 1.0 mg/dL Test, POCT, Urine (lab) Result Value Ref Range Test, POCT, U Negative Microscopic Manual Result Value Ref Range White Blood Cells None Seen /hpf Red Blood Cells Occ-2 0 - 2 /hpf Dysmorphic Red Blood Cells <=25 <=25 % Squamous Cells Occ-3 /hpf EXAM: CT ABDOMEN PELVIS WITH IV CONTRAST ?? COMPARISON: 01/13/2017 ?? FINDINGS: ?? Lung bases: No pleural or pericardial effusion. No suspicious nodule. ?? Abdomen/pelvis: Marked left renal cortical atrophy. Severe left hydronephrosis/pelvocaliectasis. No left hydroureter or obstructing ureteral stone. No nephroureteral calculi. No right hydronephrosis or hydroureter. Urinary bladder is unremarkable. Gynecologic structures are unremarkable. ?? No acute or suspicious abnormality in the liver, gallbladder, spleen, adrenal glands, or pancreas. No bowel obstruction. Normal appendix. No significant colonic diverticulosis. No free fluid or free air. No suspicious lymph nodes. Major vessels are patent and normal in caliber. ?? Bones/soft tissues: Bilateral sacroiliitis. No acute or suspicious bone or soft tissue finding. Mild curvature of the spine may be positional. ? IMPRESSION: ?? 1. Severe left pelvocaliectasis/hydronephrosis without hydroureter or obstructing ureteral stone. 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 Delayed left nephrogram and severe cortical atrophy. 2. No nephroureteral calculi on either side. No right hydronephrosis. ASSESSMENT / PLAN #1 Hydronephrosis Due to patient's ongoing pain I did feel further evaluation was indicated including CBC, BMP, UA andpregnancy test. CT of the abdomen pelvis was also obtained for further evaluation. Electrolytes and kidney function are normal. There is no elevated white blood cell count or left shift. Urinalysis does not suggest infection or stone. CT of the abdomen pelvis showed severe hydronephrosis without any obstructing stone. At this time referral to Urology was placed for further evaluation and treatment. Patient was provided a small amount of oxycodone to use as needed for severe pain. I recommended shecontinue with topical heat as it has been helpful. #2 Atrophic Kidney As noted above. #3 Pain Left Upper Quadrant As noted above. #4 Pain Flank As noted above. Vandana Young P.A.-C. documented in this encounter Plan of Treatment Scheduled Referrals Name Type Priority Associated Diagnoses Order S [facility] Urology - Female - Outpatient Referral Routine Pain Left Upper Expected: other consult Quadrant 08/05/2018 (clinic) Pain Flank (Approximate), Expires: 08/05/2021 documented as of this encounter Procedures Procedure Name Priority Date/Time Associated Comments Diagnosis URINALYSIS WITH Routine 08/04/2018 2:20 PM Pain Left Upper Res ults for this MICROSCOPIC IF CDT Quadrant procedure are in INDICATED, U Pain Flank the results section. MICROSCOPIC MANUAL Routine 08/04/2018 2:20 PM Res ults for this CDT procedure are i n the results section. CBC WITH Routine 08/04/2018 1:57 PM Pain Left Upper Result s for this DIFFERENTIAL, B CDT Quadrant procedure are in Pain Flank the results section. BASIC METABOLIC Routine 08/04/2018 1:57 PM Pain Left Upper Res ults for this PANEL, S/P CDT Quadrant procedure are in Pain Flank the results section. TEST, POCT, Routine 08/04/2018 1:54 PM Pain Left Upp er Results for this U (LAB) CDT Quadrant procedure are in Pain Flank the results section. documented in this encounter Results Microscopic Manual (08/04/2018 2:20 PM CDT) Analysis Performed At Patho logist Time Signature White Blood None Seen /hpf 08/04/2018 [facility] Cells 2:36 PM CDT [facility] Comment: ----REFERENCE VALUE---- Males: 0-3 Females: 0-10 Unknown: 0-10 Red Blood Cells Occ-2 0 - 2 /hpf 08/04/2018 2:36 PM CDT [facility] Dysmorphic Red Blood <=25 <=25 % 08/04/2018 2:36 PM CDT [facility] Squamous Cells Occ-3 /hpf 08/04/2018 2:36 PM CDT [facility] [employer] [facility] Specimen Anatomical Collection Method Collection Time Receive d Time (Source) Location / / Volume Laterality Urine 08/04/2018 2:20 PM 9 2:34 CDT PM CDT Vandana Young P.A.-C. LAB URINE ORDERABLES Performing Organization Address [facility]/State/[facility] Code Phon e Number [facility]- [address] [place] [id number] [place] [address] LAB (ABNORMAL) Urinalysis with Microscopic if Indicated (08/04/2018 2:20 PM CDT) P athologist Signature Source Midstream 08/04/2018 [facility] 2:34 PM CDT [facility] Clarity Clear Clear 08/04/2018 [facility] 2:34 PM CDT [facility] Color Yellow 08/04/2018 [facility] 2:34 PM CDT [facility] Comment: ----REFERENCE VALUE---- Colorless Yellow Ni Blood Small (A) Negative 08/04/2018 2:34 PM CDT [facility] Nitrite Negative Negative 08/04/2018 2:34 PM CDT [facility] Leukocyte Esterase Negative Negative 08/04/2018 2:34 PM CD T [facility] Protein Trace mg/dL 08/04/2018 2:34 PM CDT [facility] Comment: ----REFERENCE VALUE---- Negative Trace Glucose Negative Negative mg/dL 08/04/2018 2:34 PM [facility] Ketones, QI(U) Negative Negative mg/dL 08/04/2018 2:34 PM [facility] Bilirubin Negative Negative 08/04/2018 2:34 PM [facility] pH 6.5 5.0 - 8.0 08/04/2018 2:34 PM [facility] Specific [place] 1.015 1.001 - 1.035 08/04/2018 2:34 PM [facility] Urobilinogen 0.2 0.2 - 1.0 mg/dL 08/04/2018 2:34 PM [facility] Specimen Anatomical Collection Method Collection Time Receive d Time (Source) Location / / Volume Laterality Urine (Urine, 08/04/2018 2:20 PM 08/05/19 19 2:34 Clean Catch) CDT PM CDT Vandana Young P.A.-C. LAB URINE ORDERABLES Performing Organization Address City/State/ZIP Code Phon e Number [facility]- [id number] [address] [place] [facility] CBC with Differential, Blood (08/04/2018 1:57 PM CDT) P athologist Signature Hemoglobin 14.2 11.6 - 08/04/2018 [facility] 15.0 g/dL 2:17 PM CDT [facility] Hematocrit 41.8 35.5 - 08/04/2018 [facility] 44.9 % 2:17 PM CDT [facility] Erythrocytes 4.41 3.92 - 08/04/2018 [facility] 5.13 2:17 PM CDT HEALTH x10(12)/L [facility] MCV 94.8 78.2 - 08/04/2018 [facility] 97.9 fL 2:17 PM CDT [facility] [employer] [facility] RBC Distrib Width 12.5 12.2 - 08/04/2018 [facility] 16.1 % 2:17 PM CDT [facility] Platelet Count 281 157 - 371 08/04/2018 [facility] x10(9)/L 2:17 PM CDT [facility] Leukocytes 8.6 3.4 - 9.6 08/04/2018 [facility] x10(9)/L 2:17 PM CDT [facility] Neutrophils 5.76 1.56 - 08/04/2018 [facility] 6.45 2:17 PM CDT HEALTH x10(9)/L [facility] [employer] [facility] Lymphocytes 1.82 0.95 - 08/04/2018 [facility] 3.07 2:17 PM CDT HEALTH x10(9)/L [facility] [employer] [facility] Monocytes 0.76 0.26 - 08/04/2018 [facility] 0.81 2:17 PM CDT HEALTH x10(9)/L [facility] [employer] [facility] Eosinophils 0.23 0.03 - 08/04/2018 [facility] 0.48 2:17 PM CDT HEALTH x10(9)/L [facility] [employer] [facility] Basophils 0.03 0.01 - 08/04/2018 [facility] 0.08 2:17 PM CDT HEALTH x10(9)/L [facility] [employer] [facility] Specimen Anatomical Collection Method Collection Time Receive d Time (Source) Location / / Volume Laterality Blood (Blood, 08/04/2018 1:57 PM 08/05/19 19 2:02 Venous) CDT PM CDT Vandana Young P.A.-C. LAB BLOOD ADD-ON Performing Organization Address City/State/ZIP Code Phon e Number [facility]- [id number] [place] [address] [place] [facility] Basic Metabolic Panel (08/04/2018 1:57 PM CDT) P athologist Signature Potassium, S 4.6 3.6 - 5.2 08/04/2018 [facility] mmol/L 2:46 PM CDT [facility] Sodium, S 139 135 - 145 08/04/2018 [facility] mmol/L 2:46 PM CDT [facility] Chloride, S 104 98 - 107 08/04/2018 [facility] mmol/L 2:46 PM CDT [facility] Bicarbonate, S 24 22 - 29 08/04/2018 [facility] mmol/L 2:45 PM CDT [facility] Anion Gap 11 7 - 15 08/04/2018 [facility] 2:46 PM CDT [facility] BUN (Blood Urea 15 6 - 21 08/04/2018 [facility] Nitrogen), S mg/dL 2:45 PM CDT [facility] Creatinine, S 0.79 0.59 - 08/04/2018 [facility] 1.04 mg/dL 2:45 PM CDT [facility] eGFR-Non >90 >=60 08/04/2018 [facility] Black/ mL/min/BSA 2:45 PM CDT [facility] Comment: ----ADDITIONAL INFORMATION---- Estimated GFR calculated using the 2009 CKD_EPI creatinine equation. eGFR-Black/ >90 >=60 mL/min/BSA 2018 2:45 PM [facility] Comment: ----ADDITIONAL INFORMATION---- Estimated GFR calculated using the 2009 CKD_EPI creatinine equation. Calcium, Total, S 9.4 8.6 - 10.0 mg/dL 08/04/2018 2 :45 PM CDT [facility] Glucose, S 99 70 - 140 mg/dL 08/04/2018 2:45 PM CDT [facility] Specimen Anatomical Collection Method Collection Time Receive d Time (Source) Location / / Volume Laterality Blood (Blood, 08/04/2018 1:57 PM 08/05/19 19 2:03 Venous) CDT PM CDT Vandana Young P.A.-C. LAB BLOOD ADD-ON Performing Organization Address City/State/ZIP Code Phon e Number [facility]- [id number] [address] [place] [facility] Test, POCT, Urine (lab) (08/04/2018 1:54 PM CDT) P athologist Signature Negative 08/04/2018 [facility] Test, POCT, U 2:38 PM CDT [facility] [place] [facility] Specimen Anatomical Collection Method Collection Time Receive d Time (Source) Location / / Volume Laterality Urine (Urine, 08/04/2018 1:54 PM 08/05/19 19 2:31 Clean Catch) CDT PM CDT Vandana Young P.A.-C. LAB POCT ORDERABLES - DEVICE Performing Organization Address City/State/[facility] Code Phon e Number [facility]- [id number] [address] [place] [facility] documented in this encounter Visit Diagnoses Diagnosis Hydronephrosis - Primary Atrophic Kidney Pain Left Upper Quadrant Pain Flank documented in this encounter Care Teams Sight Mounter Relationship Specialty Start Date End Date Gabrielle Jara M.D. PCP - General Family Medicine 10/04/[address] [place] [address] documented as of this encounter
--- OUTSIDE RECORDS SUMMARY | 2021-11-21 03:03 | XMS_ITS | Encounter Summary ---
:1990 Author Organization [facility] Address [address] [place] [address] Care Team Providers Name Role Phone Gabrielle Jara M.D. Primary Care Provider Encounter Details Date Type Department Care Team Description 07/30/2018 Hospital Encounter Department of Nathaniel Conde hritis Acute Laboratory Medicine dennis Mcintyre P.A.-C., P.APedro [address] [place] [address] Social History Tobacco Use Types Packs/Day Years Used Date Smoking Tobacco: Former Smokeless Tobacco: Never Alcohol Use Standard Drinks/Week Comments Yes 0 (1 standard drink = 0.6 oz pure alcoho l) Sex Assigned at Date Recorded Not on file documented as of this encounter Medications at Time of Discharge Medication Sig Dispensed Refills Start Date End Date ciprofloxacin (CIPRO) 500 Take 1 tablet (500 20 tablet 0 08/10/2018 mg tablet mg total) by mouth 2 (two) times a day for 10 days. MARLISSA 0.15-0.03 mg per Take 1 tablet by 84 tablet 4 12/1403/01/2019 tablet mouth daily. documented as of this encounter Plan of Treatment Not on filedocumented as of this encounter Procedures Procedure Name Priority Date/Time Associated Diagnosis Comme nts BACTERIAL CULTURE, Routine 07/30/2018 10:09 Pyelonephritis Acu te Results for this AEROBIC + SUSC, AM CDT procedure ar e in URINE the results section. documented in this encounter Results Bacterial Culture, Aerobic + Susc, Urine (07/30/2018 10:09 AM CDT) Patholo gist Method Time Signature Urine Culture Multiple organisms >10,000 cfu/mL present suggesting 07/31/2018 [facility] probable contamination 9:09 AM CDT [facility] Specimen Anatomical Collection Method Collection Time Receive d Time (Source) Location / / Volume Laterality Urine (Urine, 07/30/2018 10:09 07/30/2018 2:08 Midstream) AM CDT PM CDT Comment: Specimen Source Site: Urine Chantal Conde P.A.-C., P.[facility] LAB MICROBIOLOGY - [facility] ORDERABLES Performing Organization Address City/State/ZIP Code Phon e Number [facility] [address] [facility] [address] [facility] documented in this encounter Visit Diagnoses Diagnosis Pyelonephritis Acute documented in this encounter Care Teams Axle Turner Relationship Specialty Start Date End Date Gabrielle Jara M.D. PCP - General Family Medicine 10/04/[address] [place] [address] documented as of this encounter
--- OUTSIDE RECORDS SUMMARY | 2021-11-21 03:03 | XMS_ITS | Encounter Summary ---
:1990 Author Organization [facility] Address [address] [place] [address] Care Team Providers Name Role Phone Gabrielle Jara M.D. Primary Care Provider Reason for Visit Auth/Cert Specialty Diagnoses / Procedures Referred By Contact Refer red To Contact Diagnoses Obstruction Ureteral Congenital Procedures NM CYSTOURETHROSCOPY URETER CATH NM CYSTHRSCPY W INS URETERAL STNT LEFT RETROGRADE PYELOGRAM and LEFT URETERAL STENT PLACEMENT Referral ID Status Reason Start Date Expiration Date Visits Requ ested Visits Authorized [id number] 1 1 Encounter Details Date Type Department Care Team Description 08/11/2018 [facility] Rosie, Jesus Alberto, LEFT RETROGRADE [address] [place] [address] URETERAL STENT PLACEMENT [phone] [place] [address] Social History Tobacco Use Types Packs/Day [...] sent through Care Everywhere. About Your Ureteroscopy ([place])documented in this encounter Medications at Time of [...] Cystoscopy is carried out with a 22 Panamanian cystoscope. Lower urinary tract is examined. Urethra, bladder neck, trigone and ureteral orifices are all normal. Both ureteral orifices are in the normal position, each is slit-like and configuration. Clear efflux is noted on the right, no efflux noted on the left. Remainder the bladder is free of stones, foreign bodies or exophytic lesions. No trabeculation is noted. Using a 5 Panamanian open-ended ureteral catheter multiple images were collected [...] in place. Over the guidewire, a 7 Panamanian variable length ureteral stent is position. One [...] Implant Name Type Inv. Item Serial No. Collections Officer Lot No. LRB No. Used Action ST[employer] URET [employer] CNTR [id number] - [id number] Ureteral Stent STNT URET LP CNTR [id number] [email or web address] [id number] Left 1 Implanted Jesus Alberto Velez M.D. [...] 3) , 9.6 millicurie Furosemide, entered in [employer] Procedure Note Celestino Mazariegos M.D. - 08/12/2018Formatt [...] 3) , 9.6 millicurie Furosemide, entered in [employer] IMPRESSION: 1. Split function: Left kidney 6%, right kidney 94%. 2. Normal right kidney. 3. Poor left kidney flow, cortical trans it and excretion. Jesus Alberto Velez M.D. IMG NM PROCEDURES documented in this encounter Visit Diagnoses Diagnosis Hydronephrosis Obstruction Ureteral Congenital Hydronephrosis documented in this encounter Admitting Diagnoses Diagnosis Obstruction Ureteral Congenital documented in this encounter Administered Medications Inactive Administered Medications - up to 3 most recent administrations Medication Order [facility] Action Action Date Dose Rate Site ioversol 240 mg iodine/mL 50 mL Given 08/11/2018 11:03 AM CDT 20 mL Other in NaCl 0.9% 100 mL intravenous solution As needed, Starting on 08/11/18 at 1103, Intra-Op lactated ringers Rate/Dose Verify 08/11/2018 10:55 AM [...] 1053 (Given - Provider: Fracisco Torres APRN, CRNA, D.N.P.)1127 (Anesthesia Volume Adjustment - Provider: Fracisco Torres APRN, CRNA, D.N.P.) 2 g (rounded from 2.43 g [...] (Rate/Dose Verify - Provider: Fracisco Torres APRN, CRNA, D.N.P.)1127 (Anesthesia Volume Adjustment - Provider: Fracisco Torres APRN, CUSTOMER CONTACT REPRESENTATIVE, D.N.P.)1230 (Stopped - Provider: Monika Meza R.N.) [...] 6 hours PRN , nausea, vomiting, Starting e 08/11/18 at 1132, For 48 hours, PACU [...] than 4, discontinue Fentanyl: give Hydromorphone, Starting Fri08/11/18 at 1132, PACU & Post-Op HYDROmorphone injection 0.5 mg (DILAUDID) 0.5 mg, intravenous, Every 5 min PRN, mo derate pain or score 4-6 of 10, severe pain or score 7-10 of 10, Starting e 08/11/18 at 1132, For 4 doses, PACU & Post-Op, Up to maximum total dose of 2 mg ioversol 240 mg iodine/mL 50 mL in NaCl 0.9% 100 mL intravenous solution (CANCELED) 1103 (Given - Provid er: Jesus Alberto Sneiders, M.D. - Comment: Contrast) As needed, Starting [...] promethazine). documented in this encounter Care Teams Time Clerk Relationship Specialty Start Date End Date Gabirelle Jara M.D. PCP - General Family Medicine 10/04/[address] [place] [address] documented as of this encounter
--- OUTSIDE RECORDS SUMMARY | 2021-11-21 03:03 | XMS_ITS | Encounter Summary ---
:1990 Author Organization [facility] Address [address] [place] [id number] Care Team Providers Name Role Phone Gabrielle Jara M.D. Primary Care Provider Reason for Visit Reason Onset Date Comments Pre-visit Testing Orders 08/13/2018 Encounter Details Date Type Department Care Team Description 08/13/2018 Clinical Communication Department of Emil Villarreal Pre- visit Testing Urology in [place] Orders [place], [address] [place] [address] [place] [phone] [place], [place] [phone] (Work) [phone] Social History Tobacco Use Types Packs/Day Years [...] as of this encounter Visit Diagnoses Diagnosis Obstruction Ureteral Congenital - Primar y documented in this encounter Care Teams Pharmacist In Charge Relationship Specialty Start Date End Date Gabrielle Jara M.D. PCP - General Family Medicine 10/04/[address] [place] [phone] documented as of this encounter
--- OUTSIDE RECORDS SUMMARY | 2021-11-21 03:03 | XMS_ITS | Encounter Summary ---
:1990 Author Organization [facility] Address [address] [place] [address] Care Team Providers Name Role Phone Gabrielle Jara M.D. Primary Care Provider Reason for Visit Auth/Cert Specialty Diagnoses / Procedures Referred By Contact Refer red To Contact Diagnoses Obstruction Ureteral Congenital Procedures OK CYSTOURETHROSCOPY URETER CATH OK CYSTHRSCPY W INS URETERAL STNT LEFT RETROGRADE PYELOGRAM and LEFT URETERAL STENT PLACEMENT Referral ID Status Reason Start Date Expiration Date Visits Requ ested Visits Authorized [id number] 1 1 Encounter Details Date Type Department Care Team Description 08/11/2018 Anesthesia Event [facility] OR Jessica Adames M.D. [address] [facility] [place] [phone] Norris [phone] (Wo rk) Anesthesia Record Procedure Summary Procedure Name Responsible Anesthesia Start Anesthesia Stop Anesthesiologist Time Time LEFT RETROGRADE Jessica Adames M.D. 08/11/18 1047 08/11/18 11 28 PYELOGRAM WITH LEFT URETERAL STENT PLACEMENT (Circumferential) Events Date Time Event Comment 08/11/2018 1038 1046 In Room 1047 An Start Machine/Equipmen t Checked Infection Precautions Foll owed Procedure/Site Verified NPO Sta tus Verified Supine Standard ASA Mon itors Applied 1051 An Induction 1052 An Intubation 1053 Turnover to Proceduralist 1102 Proc Start 1116 Proc Fin 1116 Turnover to ANE Staff 1122 Airway Removal Criteria Met 1122 Extubation/Airway Removed 1123 an stop data 1123 Out of Room 1128 An End I completed my h andoff to the receiving staff during [facility] we 1. Identified the patient 2. Ident ified the responsible provider 3. Revi ewed the pertinent medical history 4. Discussed the surgical course 5. Review ed intra-op anesthesia management and i ssues during anesthesia 6. Set expectati ons for post-procedure period 7. Allowe d opportunity for questions and ac knowledgement of understanding. Name Total midazolam 1 mg/mL injection 2 mg fentanyl injection 50 mcg/mL 100 mcg lidocaine 2% (mg) injection 100 mg propofol 10 mg/mL 500 mg ondansetron 4 mg/2 mL injection 4 mg dexamethasone 4 mg/mL injection 8 mg ceFAZolin in NaCl 0.9 % IVPB 2 g (ANCEF) 2 g propofol 10 mg/mL infusion 242.5 mg lactated ringers 600 mL Agents No agents on file. Blood No blood administrations on file. Lines, Drains, and Airways Type Details Placement Removal Peripheral IV Placement Date: 08/04/18; 08/04/18 1441 by 08/11 1241 by Placement Time: 1441; Sonia Maurice Heinen, Christine M, Catheter Size: 18 G; R.T.(R)(CT), R.T.(R) R.N. Orientation: Left; Location: Antecubital; Site Prep: Chlorhexidine (Preferred); Technique: Anatomical landmarks; Inserted by: [email or web address]; Insertion Attempts: 1; Removal Date: 08/11/18; Removal Time: 1241 Peripheral IV Placement Date: 08/11/18; 08/11/18 1044 by 08/11 1240 by Placement Time: 1044; Hawa Son, RMonika Rascon, Catheter Size: 20 G; R.N. Orientation: Right; Location: Hand; Site Prep: Chlorhexidine (Preferred); Insertion Attempts: 1; Removal Date: 08/11/18; Removal Time: 1240; Removal Reason: Patient discharged Supraglottic Airway Placement Date: 08/11/18; 08/11/18 1052 by 0 08/11/18 1122 by Placement Time: 1052 Govind Torres T, Han Torres T, (created via procedure SUPERVISOR HANGING [employer] TRIMMING, DIRK, D.N.P. SUPERVISOR HANGING AND TRIMMING, DIRK, D.N.P. documentation); Mask Ventilation: Not attempted; Removal Date: 08/11/18; Removal Time: 1122 documented in this encounter Social History Tobacco Use Types Packs/Day Years [...] on file documented as of this encounter OR Notes Anesthesia Postprocedure Evaluation - Jessica Adames M.D. - 08/11/2018 11:55 AM CDT Patient: Cherry Alcantara Procedure Summary Date: 08/11/18 Room / Location: [place] [address] / [facility] - GI Anesthesia Start: 1047 Anesthesia Stop: 1128 Procedure: LEFT RETROGRADE PYELOGRAM WITH LEFT URETERAL STENT PLACEMENT (Circumferential ) Diagnosis: Obstruction Ureteral Congenital (Obstruction Ureteral Congenital [Q62.39]) Surgeon: Jesus Alberto Velez M.D. Responsible Provider: Jessica Adames M.D. Anesthesia Type: general ASA Status: 1 Anesthesia Type: general Last vitals Vitals Value Taken Time BP 141/105 08/11/2018 11:45 AM Temp 37 ??C 08/11/2018 11:30 AM Pulse 75 08/11/2018 11:54 AM Resp SpO2 98 % 08/11/2018 11:54 AM Vitals shown include unvalidated device data. Please reference Vitals flowsheet for most recent vital signs. Anesthesia Post Evaluation Patient Disposition: dismissal Cardiovascular status: hemodynamics (HR & BP) acceptable Respiratory status: patent airway with spontaneous effort Temperature: normothermic Oxygen requirements: room air Level of consciousness: awake Pain score: pain adequately controlled and/or at baseline Post Op nausea/vomiting: none Hydration status: euvolemic Anesthesia Procedure Notes - Govind Torres APRN, DIRK, D.N.P. - 08/11/2018 11:04 AM CDTAssociated Order(s): AIRWAY MANAGEMENT Airway Date/Time: 08/11/2018 10:52 AM Patient location during procedure: OR / Procedure Area Performed by: GOVIND TORRES Authorized by: JESSICA ADAMES Pre procedure details Pre evaluation for airway management: procedure Urgency: elective Sedation level: anesthetized Preoxygenation: bag valve mask Procedure details Mask difficulty assessment: not attempted Final airway type: supraglottic airway Laryngeal Manipulation: no Supraglottic device: air-Q Supraglottic device size: 4 Number of attempt to successful placement: 1 Airway confirmation: bilateral breath sounds, positive ETCO2 and bilateral chest rise Other previous techniques attempted: none Post procedure details Procedure outcome: successful Airway event: no complications Anesthesia Preprocedure Evaluation - Jessica Adames M.D. - 08/07/2018 8:41 AM CDT Anesthesia Pre-Evaluation Pertinent components of the patient's history including current problem list, medical history, surgical history, family history, social history, medications and allergies were reviewed and updated as appropriate. The patient was examined and the Pre-op diagnosis, planned procedure, and H&P were reviewed and remain unchanged. PROBLEM LIST Relevant Problems No relevant active problems OBJECTIVE PHYSICAL EXAMINATION Airway (HEENT) Mallampati: II TM Distance: >3 FB Neck ROM: Full Mouth Opening: >3 cm Cardiovascular Rhythm: Regular Rate: Normal Cardiovascular Assessment: cardiovascular normal Functional Capacity: >4 METS Pulmonary Pulmonary Assessment: Clear Neurological Normal Dental Normal General / Constitutional Normal ASSESSMENT / PLAN ANESTHESIA PLAN ASA: 1 Anesthesia Plan: general Patient seen and allergies reviewed; anesthesia plan and risks discussed directly with patient / legal guardian, or through an historical interpreter; patient evaluated and approved for anesthesia / sedation. The use of blood products not discussed documented in this encounter Plan of Treatment Not on filedocumented as of this encounter Procedures Procedure Name Priority Date/Time Associated Diagnosis Comme nts LDA ANE Routine 08/11/2018 11:04 AM Results for this NON-SURGICAL AIRWAY CDT procedur e are in the results section. documented in this encounter Results LDA ANE NON-SURGICAL AIRWAY (08/11/2018 11:04 AM CDT) Narrative Govind Torres APRN, CRNA, D.N.P. - 11:04 AM CDT Govind Torres APRN, CRNA, D.N.P. ? 08/11/2018 11:05 AM Airway Date/Time: 08/11/2018 10:52 AM Patient location during procedure: OR / Procedure Area Performed by: GOVIND TORRES Authorized by: JESSICA ADAMES Pre procedure details ?? Pre evaluation for airway management : procedure ?? Urgency: elective ?? Sedation level: anesthetized ?? Preoxygenation: bag valve mask Procedure details ??Mask difficulty assessment: not attem pted ?? Final airway type: supraglottic airw ay Laryngeal Manipulation: no ? Supraglottic device: air-Q ? Supraglottic device size: 4 ? Number of attempt to successful plac ement: 1 ?? Airway confirmation: bilateral breat h sounds, positive ETCO2 and bilateral chest rise ?? Other previous techniques attempted: none Post procedure details ?? Procedure outcome: successful ? Airway event: no complications Procedure Note Govind Torres APRN, CRNA, D.N.P. - 11:04 AM CDT Airway Date/Time: 08/11/2018 10:52 AM Patient location during procedure: OR / Procedure Area Performed by: GOVIND TORRES Authorized by: JESSICA ADAMES Pre procedure details Pre evaluation for airway management: p rocedure Urgency: elective Sedation level: anesthetized Preoxygenation: bag valve mask Procedure details Mask difficulty assessment: not attempt ed Final airway type: supraglottic airway Laryngeal Manipulation: no Supraglottic device: air-Q Supraglottic device size: 4 Number of attempt to successful placeme nt: 1 Airway confirmation: bilateral breath s ounds, positive ETCO2 and bilateral chest rise Other previous techniques attempted: no ne Post procedure details Procedure outcome: successful Airway event: no complications Jessica Adames M.D. ANESTHESIA ORDERABLES documented in this encounter Visit Diagnoses Not on filedocumented in this encounter Administered Medications Inactive Administered Medications - up to 3 most recent administrations Medication Order MAR Action Action Date Dose Rate Site ceFAZolin in NaCl 0.9 % IVPB 2 g Given 08/11/2018 10:53 AM CDT 2 g (ANCEF) 2 g (rounded from 2.43 g = 25 mg/kg ? 97.2 kg), intravenous, at 220 mL/hr, Administer over 30 Minutes, Once, On Fri08/11/18 at 1030, For 1 dose, Intra-Op, Preoperatively within 1 hour prior to surgical incision premix bag, Drug Monitoring Program: Pharmacist to adjust medication dosing based on indication and drug clearance factors., Indications: Prophylaxis, surgical dexamethasone injection (DECADRON) Given 08/11/2018 10:55 AM CDT 8 mg As needed, Starting on Fri08/11/18 at 1055, Anesthesia Intra-op fentaNYL injection (SUBLIMAZE) Given 08/11/2018 11:25 AM CDT 50 mcg intravenous, As needed, severe pain or score 7-10 of 10, Starting on Fri08/11/18 at 1048, Anesthesia Intra-op Given 08/11/2018 10:48 AM CDT 50 mcg lactated ringers Rate/Dose Verify 08/11/2018 10:55 AM CDT 20 mL/hr, intravenous, Continuous, Starting on Fri08/11/18 at 1030, Pre-Op New Bag 08/11/2018 10:45 AM CDT 20 mL/hr 20 mL/hr lidocaine (PF) (cardiac) injection Given 08/11/2018 10:51 AM CDT 100 mg intravenous, As needed, Starting on Fri08/11/18 at 1051, Anesthesia Intra-op midazolam (PF) injection (VERSED) Given 08/11/2018 10:48 AM CDT 2 mg intravenous, As needed, Starting on Fri08/11/18 at 1048, Anesthesia Intra-op ondansetron (PF) injection (ZOFRAN) Given 08/11/2018 10:55 AM CDT 4 mg intravenous, As needed, nausea, vomiting, Starting on Fri08/11/18 at 1055, Anesthesia Intra-op propofol 10 mg/mL infusion Rate/Dose 08/11/2018 11:09 25 mcg/kg/min 14.6 mL/hr (DIPRIVAN) Change AM CDT Continuous Infusion: Per Instructions PRN, Starting on Fri08/11/18 at 1053, Anesthesia Intra-op New Bag 08/11/2018 10:53 AM CDT 150 mcg/kg/min 87.3 mL/hr propofol injection (DIPRIVAN) Given 08/11/2018 11:02 AM CDT 150 mg intravenous, As needed, Starting on Fri08/11/18 at 1051, Anesthesia Intra-op Given 08/11/2018 10:53 AM CDT 150 mg Given 08/11/2018 10:51 AM CDT 200 mg documented in this encounter Care Teams Polisher Apprentice Relationship Specialty Start Date End Date Gabrielle Jara M.D. PCP - General Family Medicine 10/04/13 [address] [place] [phone] documented as of this encounter
--- OUTSIDE RECORDS SUMMARY | 2021-11-21 03:03 | XMS_ITS | Encounter Summary ---
:1990 Author Organization [facility] Address [address] [place] [address] Care Team Providers Name Role Phone Gabrielle Jara M.D. Primary Care Provider Reason for Referral Outpatient (Routine) - Closed Specialty Diagnoses / Procedures Referred By Contact Refer red To Contact Family Medicine Diagnoses Obstruction Ureteral Congenital Isabelle Andrew [facility] [address] [phone] Referral ID Status Reason Start Date Expiration Date Visits Requ ested Visits Authorized [id number] Closed 08/06/2018 08/06/2019 1 1 Outpatient (Routine) - Closed Specialty Diagnoses / Procedures Referred By Contact Refer red To Contact General Surgery Diagnoses Obstruction Ureteral Congenital Isabelle Andrew [facility] [address] [place] [phone] Referral ID Status Reason Start Date Expiration Date Visits Requ ested Visits Authorized [id number] Closed 08/06/2018 08/06/2019 1 1 Reason for Visit Outpatient (Routine) - Closed Specialty Diagnoses / Procedures Referred By Contact Refer red To Contact Urology Diagnoses Pain Left Upper Quadrant Pain Flank Vandana Young P.A.-C. [address] [address] Referral ID Status Reason Start Date Expiration Date Visits Requ ested Visits Authorized [id number] Closed 08/05/2018 08/05/2019 1 1 Encounter Details Date Type Department Care Team Description 08/06/2018 Comprehensive Visit Department of Isabelle Andrew Obstr uction Ureteral Congenital (Primary Dx); [facility] [place] [facility] Pain Left Upper Quadrant; [place] [address] Pain Flank [address] [place], [place] [phone] Social History Tobacco Use Types Packs/Day Years Used Date Smoking Tobacco: Former Smokeless Tobacco: Never Alcohol Use Standard Drinks/Week Comments Yes 0 (1 standard drink = 0.6 oz pure alcoho l) Sex Assigned at Date Recorded Not on file documented as of this encounter Last Filed Vital Signs Vital Sign Reading Time Taken Comments Blood Pressure 131/83 08/06/2018 1:50 PM CDT Pulse 85 08/06/2018 1:50 PM CDT Temperature 37.1 ??C (98.8 ??F) 08/06/2018 1:50 PM CDT Respiratory Rate - - Oxygen Saturation - - Inhaled Oxygen Concentration - - Weight - - Height - - Body Mass Index - - documented in this encounter Progress Notes Yareli Marcano L.P.N. - 08/06/2018 2:00 PM CDT Bladder Scan Documentation Void prior to Scan: YES Bladder Distention: absent Patient states need to void: NO Position during scan: supine Bladder Scan Volume: NA Post Void Residual: 43 ML Was Uroflow used: YES If yes, complex uroflowmetry was completed using calibrated electronic equipment utilized. documented in this encounter Consult Notes Isabelle Andrew P.A.-C. - 08/06/2018 2:00 PM CDT SUBJECTIVE CHIEF COMPLAINT/REASON FOR VISIT Left flank pain, left pelvocaliectasis and hydronephrosis HISTORY OF PRESENT ILLNESS This is a very pleasant 28-year-old female who developed sudden onset of left- sided flank pain whichwas quite severe, she had nausea and vomiting. She presented to primary care office in the started her on antibiotics empirically for kidney infection, her urinalysis was really unremarkable urine culture was negative, on Friday she completed CT abdomen and pelvis with contrast which showed severe left pelvocaliectasis and hydronephrosis. No hydroureter, no obstructing stone or obstructing mass was identified. Presumably this is an acute on chronic UPJ obstruction. Renal function remains normal. Herpain is reasonably controlled at present, she admits she has sudden onset of left-sided flank pain which leads to nausea vomiting. She has required the use of oxycodone to control her pain as well as ibuprofen at home. She also has noticed decreased filling sensation, she feels she has to remind herself to void, she is not getting the usual urge sensation before void. She does feel she is able to fully empty. Urological history: She had a bladder infection as an , she was not hospitalized. Around the age of 12 she had recurrent pyelonephritis, she had a significant workup in [place] including VCUG which excluded reflux, US imaging showed a severely atrophied L kidney with hydronephrosis, DSMA scan which showed only 11% functioning of the Left kidney. A that time it was determined to take a watchful waiting approach to her recurrent infections, she was infection free from 2004 - 2016. Consideration for nephrectomy in 2003. REVIEW OF SYSTEMS Per HPI. Pain 0/10 MEDICAL HISTORY Patient Active Problem List Diagnosis ??? Atrophic Kidney ??? Hydronephrosis ??? Obstruction Ureteral Congenital CURRENT MEDICATIONS Current Medications: ??? ciprofloxacin (CIPRO) 500 mg tablet, Take 1 tablet (500 mg total) by mouth 2 (two) times a day for 10 days. ??? MARLISSA 0.15-0.03 mg per tablet, Take 1 tablet by mouth daily. ??? oxyCODONE (ROXICODONE) 5 mg immediate release tablet, Take 1 tablet (5 mg total) by mouth every 6 (six) hours as needed for severe pain or score 7-10 of 10 Indication: Acute Pain. Current Medications: ??? cefTRIAXone injection 1 g (ROCEPHIN), Once ALLERGIES/CONTRAINDICATIONS Environmental Exposures OBJECTIVE VITAL SIGNS BP 131/83 Pulse 85 Temp 37.1 ??C (Temporal) PHYSICAL EXAMINATION General: Overall well-appearing, no acute distress. Skin: No raised areas, rashes or lesions to areas I inspected. Eyes: No scleral icterus, normal conjunctivae. Respiratory: Normal respiratory effort. Musculoskeletal: Walks with a steady gait, without assistance. Psychiatric: Appropriate affect. Neurological: Alert and oriented x4. DIAGNOSTICS CT abdomen and pelvis with contrast impression: 08/04/2018 1. Severe left pelvocaliectasis and hydronephrosis without hydroureter obstructing ureteral stone. 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 Delayed left nephrogram and severe cortical atrophy 2. No nephro ureteral calculi on either side. No right hydronephrosis Laboratory studies 08/04/2018 Creatinine-0.79 GFR-> 90 Urinalysis-negative nitrates, negative leukocyte esterase, WBCs none seen, RBCs occasional to 2 Urine culture-> 10 K multiple organisms likely contaminant Uroflow: Patient voided 85 mL over 12.9 seconds, peak 16.1, average 7.0, PVR 43 mL Waveform: Adler curve 49057 - Complex Uroflowmetry, calibrated electronic equipment utilized ASSESSMENT / PLAN ASSESSMENT/PLAN #1 Left UPJ obstruction, congenital versus acquired #2 Pelvocaliectasis and hydronephrosis of the left kidney #3 Severe left flank pain #4 Nausea vomiting She has prescriptions for pain medicine as well as antiemetics and is using ibuprofen at home. With this she feels things are reasonably controlled. Her renal function is normal and she has no evidenceof infection. I reviewed case and images with Dr. Velez, he agrees to left retrograde pyelogram and left ureteral stent placement on August 11, 2018. He advised we should completed DMSA scan or Mag 3Lasix scan to see how much functionality is remaining of the left kidney. As a general rule, if it is less than 10% functioning, radical nephrectomy should be considered. If there is > 10% functioning, referral to Dr. Villarreal for consideration of UPJ reconstruction. We reviewed the surgical procedure in detail left retrograde pyelogram and ureteral stent placement.Surgical risks including but not limited to bleeding requiring blood transfusion, infection, injury to adjacent structures, DVT, pulmonary embolism, heart attack, stroke and were discussed. She un derstands the ureteral stent is irritating she likely will have urgency frequency hematuria and left-sided flank pain because of the stent. Surgical listing: Cystoscopy and left retrograde pyelogram and left ureteral stent placement Surgery date: 08/11/2018 Primary care KARRIE: To be scheduled Surgery nurse transportation planner KARRIE: To be scheduled, phone Urine culture: Already completed, negative PATIENT EDUCATION Ready to learn, no apparent learning barriers were identified; learning preferences include listening. Explained diagnosis and treatment plan; patient expressed understanding of the content. Thirty minutes was spent with the patient, greater than 50% of this time was spent in counseling andeducation documented in this encounter Plan of Treatment Scheduled Referrals Name Type Priority Associated Diagnoses Order S chedule Pre Operative Outpatient Referral Routine Obstruction Ureteral Expected: Evaluation KARRIE nurse Congenital 019 consult (clinic) (Approximat e), Expires: 08/06/2021 Primary Care - KARRIE Outpatient Referral Routine Obstruction Ure teral Expected: consult (clinic) Congenital 08/06/2018 (Approximate), Expires: 08/06/2021 documented as of this encounter Visit Diagnoses Diagnosis Obstruction Ureteral Congenital - Primar y Pain Left Upper Quadrant Pain Flank documented in this encounter Care Teams Docent Coordinator Relationship Specialty Start Date End Date Gabrielle Jara M.D. PCP - General Family Medicine 10/04/[address] [place] [phone] documented as of this encounter
--- OUTSIDE RECORDS SUMMARY | 2021-11-21 03:03 | XMS_ITS | Encounter Summary ---
:[address] [facility] Address [address] [place] [address] Care Team Providers Name Role Phone Gabrielle Jara M.D. Primary Care Provider Reason for Visit Auth/Cert Specialty Diagnoses / Procedures Referred By Contact Refer red To Contact Diagnoses Obstruction Ureter Procedures MS LAPAROSCOPY PARTL NEPHRECTOMY Robotic-Assisted Nephrectomy - Simple Referral ID Status Reason Start Date Expiration Date Visits Requ ested Visits Authorized [id number] 1 1 Encounter Details Date Type Department Care Team Description 09/10/2018 Surgery [facility] OR Emil Villarreal, Robotic-Assisted [address] [place]rectomy[place] [address] [address] [facility] [phone] [place] [address] Social History Tobacco Use Types Packs/Day Years [...] Sign Reading Time Taken Comments Blood Pressure 145/90 09/10/2018 10:06 AM CDT Pulse 64 09/10/2018 10:06 AM CDT Temperature 37.1 ??C (98.8 ??F) 09/10/2018 10:06 AM CDT Respiratory Rate 16 09/10/2018 10:06 AM CDT Oxygen Saturation 95% 09/10/2018 10:06 AM CDT Inhaled Oxygen Concentration - - Weight 98.3 kg (216 lb 11.4 oz) 09/10/2018 10:06 AM CDT Height 179 cm (5' 10.47) 09/10/2018 10:06 AM CDT Body Mass Index 31.46 09/10/2018 10:06 AM CDT documented in this encounter Discharge Summaries Reyes Germain M.D. - 09/12/2018 8:59 AM CDT DISCHARGE SUMMARY BRIEF OVERVIEW Discharge Provider: Emil Villarreal M.D. Primary Care Providers: Gabrielle Jara M.D. (General) [address] [place] [phone] Primary Care Provider Primary Care Provider Other Providers: None Admission Date: 09/10/2018 Discharge Date: 09/12/18 PRINCIPAL DIAGNOSIS Obstruction Ureter SECONDARY DIAGNOSES Principal Problem: Obstruction Ureter Resolved Problems: * No resolved hospital problems. * Operative Procedures: Scheduled (Ge), Completed (Comp) or Canceled (Can) Case IDs Date Procedure Surgeon Location Status [id number] 09/10/18 Robotic-Assisted Nephrectomy, Simple. Emil Villarreal M.D. [...] AM CDT You were discharged from the [facility] Urology Surgery - [facility]. Please identify this service name if you call with questions after hospitalization. documented in this encounter Medications at Time of Discharge Medication Sig Dispensed Refills Start Date End Date acetaminophen (TYLENOL) Take 2 capsules 0 019 500 mg capsule (1,000 mg total) by mouth every 6 (six) hours as needed for pain. Can shrimp picker over the counter sennosides (SENNA) 8.6 [...] Date/Time Bacterial Culture, Aerobic + Susc, Urine [[id number]] Collected: 08/25/18 1458 Lab Status: Final result [...] Will remove drain before dismissal. Please call [phone] during the day and [phone] after hours with questions/concerns. documented in this encounter H&P Notes Red Mccloud M.D. - 09/10/2018 12:02 PM CDT INTERVAL HISTORY AND PHYSICAL PRE-PROCEDURE UPDATE H&P reviewed. The patient was examined and there are no significant changes to the H&P. Red Mccloud M.D. Source Note - Darleen Faust P.A.-C. - 08/25/2018 1:00 PM CDT SUBJECTIVE REFERRAL SOURCE The patient is being seen in consultation at the request of Isabelle Andrew P.A.-C. [address] [phone] HISTORY OF PRESENT ILLNESS Ms. Alcantara is a pleasant 28 y.o. female with a history of bladder infection as an , she was not hospitalized. In 2003, she [...] ?? Miss Alcantara was seen by at [facility] in [place] by Isabelle Andrew PA-C and had a [...] but the final decision willbe made at [facility]. ?? PAST MEDICAL/SURGICAL HISTORY MEDICAL Past Medical History: Diagnosis Date ??? Infection Kidney 01/18/2011 function 12% date unknown SURGICAL Past Surgical History: Procedure Laterality Date ??? RETROGRADE PYELOGRAM Circumferential 08/11/2018 Procedure: LEFT RETROGRADE PYELOGRAM WITH LEFT URETERAL STENT PLACEMENT; Surgeon: Jesus Alberto Velez M.D.; Location: [facility] OR ??? 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 Social History Main [...] Date/Time Bacterial Culture, Aerobic + Susc, Urine [[id number]] Collected: 07/30/18 1009 Lab Status: Final result [...] this encounter Nursing Notes Mitzy Abdul R.N., Trae.S.R.N. - 09/11/2018 7:09 PM CDT Shift Goals: [...] - Primary * Red Mccloud M.D. - Cell Manager Anesthesia Type: General Pre-Operative Diagnosis: Obstruction Ureter [...] Implant Name Type Inv. Item Serial No. Bobbin Cleaner Lot No. LRB No. Used Action RODO LIU MD - [id number] Hardware e.g. pins/screws/rods RODO LIU MD [employer] Left 1Implanted Red Mccloud M.D. Brief Op Note - Red Mccloud M.D. - 09/10/2018 3:13 PM CDT BRIEF OP NOTE Procedure(s) (LRB): Robotic-Assisted Nephrectomy, Simple. (Left) Surgeon(s) and Role: * Emil Villarreal M.D. - Primary * Red Mccloud M.D. - Cell Manager Anesthesia Type: General Pre-Operative Diagnosis: Obstruction Ureter [...] Implant Name Type Inv. Item Serial No. Bobbin Cleaner Lot No. LRB No. Used Action RODO LIU MD - [id number] Hardware e.g. pins/screws/rods RODO LIU MD [employer] Left 1Implanted Red Mccloud M.D. documented in [...] CBC without Differential (09/11/2018 12:21 AM CDT) [facility] Method Time Signature Hemoglobin 13.7 11.6 - 09/11/2018 [facility] 15.0 g/dL 1:15 AM CDT [facility] - [facility] Hematocrit 40.9 35.5 - 09/11/2018 [facility] 44.9 % 1:15 AM CDT [facility] Erythrocytes 4.31 3.92 - 09/11/2018 [facility] 5.13 1:15 AM CDT LABORATORIES - x10(12)/L [facility] MCV 94.9 78.2 - 09/11/2018 [facility] 97.9 fL 1:15 AM CDT [facility] RBC Distrib 12.4 12.2 - 09/11/2018 [facility] Width 16.1 % 1:15 AM CDT [facility] Platelet Count 268 157 - 371 09/11/2018 [facility] x10(9)/L 1:15 AM CDT [facility] [place] Leukocytes 12.1 (H) 3.4 - 9.6 09/11/2018 [facility] x10(9)/L 1:15 AM CDT [facility] Specimen Anatomical Collection Method Collection Time Receive d Time (Source) Location / / Volume Laterality Blood (Blood, 09/11/2018 12:21 09/11/2018 1:04 Venous) AM CDT AM CDT Red Mccloud M.D. LAB BLOOD ADD-ON Performing Organization Address City/State/ZIP Code Phon e Number [facility]ATORIES - [address] [place] [address] [facility] Basic Metabolic Panel (09/11/2018 12:21 AM CDT) P athologist Signature Potassium, S 4.7 3.6 - 5.2 09/11/2018 [facility] mmol/L 1:41 AM CDT [facility] [place] Sodium, S 138 135 - 145 09/11/2018 [facility] mmol/L 1:41 AM CDT [facility] [place] Chloride, S 101 98 - 107 09/11/2018 [facility] mmol/L 1:41 AM CDT [facility] [place] Bicarbonate, S 22 22 - 29 09/11/2018 [facility] mmol/L 1:41 AM CDT [facility] [place] Anion Gap 15 7 - 15 09/11/2018 [facility] 1:41 AM CDT [facility] [place] BUN (Blood 11 6 - 21 09/11/2018 [facility] Urea mg/dL 1:41 AM CDT LABORATORIES - Nitrogen), S [facility] Creatinine, S 0.78 0.59 - 09/11/2018 [facility] 1.04 mg/dL 1:41 AM CDT LABORATORIES [facility] eGFR-Non >90 >=60 09/11/2018 [facility] Black/ mL/min/BSA 1:41 AM CDT LABORATORIES [facility] Comment: ----ADDITIONAL INFORMATION---- Estimated GFR calculated using the 2009 CKD_EPI creatinine equation. eGFR-Black/ >90 >=60 mL/min/BSA 09/11/2018 1:41 [facility] CDT LABORATORIES [facility] Comment: ----ADDITIONAL INFORMATION---- Estimated GFR calculated using the 2009 CKD_EPI creatinine equation. Calcium, Total, S 8.8 8.6 - 10.0 mg/dL 09/11/2018 1:41 AM [facility] CDT LABORATORIES [facility] Glucose, S 110 70 - 140 mg/dL 09/11/2018 1:41 AM [facility] CDT [facility] S Specimen Anatomical Collection Method Collection Time Receive d Time (Source) Location / / Volume Laterality Blood (Blood, 09/11/2018 12:21 09/11/2018 1:05 Venous) AM CDT AM CDT Red Mccloud M.D. LAB BLOOD ADD-ON Performing Organization Address City/State/ZIP Code Phon e Number [facility] - [address] [place] [address] [facility] Renal Pathology (09/10/2018 5:21 PM CDT) Component [...] future ancillary studies. ??The specimen is photographed. ??Pulverizing And Sifting Operator tissue submitted for permanent sections only. ??Grossed by AM. Material Received A. : Left kidney 09/18/2018 11:08 AM CDT Report Kyle Jean Baptiste M.D. [phone] 09/18/2018 electronically I verify that I have examined all relevant slides/ma terials 11:08 AM signed by for the specimen(s) and rendered or confirmed the diagnosis. CDT Seen in consultation with: ??Melita Vásquez M.D. [phone] 09/18/2018 11:08 AM CDT Disclaimer This test was developed and its performance characteri [facility] 09/18/[address] [facility] in a manner consistent with CLIA 11:08 [...] City/State/ZIP Code Phon e Number [facility] LABORATORIES - [address] [place] [address] [facility] documented in this encounter Visit Diagnoses Diagnosis Obstruction Ureter - Primary Obstruction Ureter documented in this encounter Admitting Diagnoses Diagnosis Obstruction Ureter documented in this encounter Administered Medications Inactive Administered Medications - up to 3 most recent administrations Medication Order MAR Action Action Date Dose Rate Site acetaminophen tablet 1,000 mg Given 09/12/2018 8:01 AM CDT 1,000 mg (TYLENOL) 1,000 mg, oral, Every 6 hours, First dose on Thais 09/10/18 at 2000 Given 09/12/2018 12:23 AM CDT 1,000 mg Given 09/11/2018 8:17 PM CDT 1,000 mg benzocaine-menthol 15-3.6 mg per lozenge 1 Given 09/11 8:25 PM CDT 1 lozenge lozenge (CEPACOL) 1 lozenge, oral, As needed, sore throat, Starting on Fri09/10/18 at 1945 bupivacaine 0.25 % (2.5 mg/mL) Given 09/10/2018 5:32 PM CDT 30 m L Abdominal Tissue injection (MARCAINE) As needed, Starting on Fri09/10/18 at 1732, Intra-Op fentaNYL injection 25 mcg (SUBLIMAZE) 25 mcg, intravenous, Every 2 hour PRN, s evere pain or score 7-10 of 10, Starting on Fri09/11/18 at 0030 oxyCODONE IR tablet 5 mg (ROXICODONE) Given [...] oral, 2 times daily, First dose on Fri09/10/18 at 2100, Do not give if patient has diarrhea. Given 09/11/2018 8:17 PM CDT 1 tablet Given 09/11/2018 9:19 AM CDT 1 tablet documented in this encounter Active and Recently Administered Medications Times are shown in CDT. Scheduled Medication Order 09/10/2018 09/11/2018 09/12/2018 acetaminophen tablet 1,000 mg (TYLENOL) (COMPLETED) 13 (Given - Provider: Rosaline Villavicencio R.N.) 1,000 mg, oral, Once, Fri09/10/18 at 133 0, For 1 dose, Pre-Op, PreOp give in preprocedural area. acetaminophen tablet 1,000 mg (TYLENOL) 2105 (Given - Provider: Sada Dawkins RPedroN.) 0221 (Given - Provider: Dioni Johnson RPedroN.)0919 (Given - Provider: Kassandra Mazariegos R.N.)1348 (Given - Provider: Kassandra Mazariegos R.N.)2017 (Given - Provider: Job MensahN.) 0023 (Given - Provider: Job MensahNPedro)0801 (Given - Provider: Hawa Haque RPedroNPedro) 1,000 mg, oral, Every 6 hours, First dose on Thais 09/10/18 at 2000 ceFAZolin in dextrose (iso-os) IVPB 2 g (ANCEF) (COMPL ETED) 2254 (New Bag - Provider: Sada Dawkins R.N.) 0617 (New Bag - Provider: Job MensahNPedro) 2 g, intravenous, at 200 mL/hr, Administ [...] (Due)1 509 (Given - Provider: Marleen Mendez CONSULTING SYSTEMS ENGINEER, [facility]) 2 g, intravenous, Every 8 hours, First [...] 1329 ( Given - Provider: Rosaline Villavicencio R.NPedro) 400 mg, oral, Once, Thais 09/10/18 at 1330, For 1 dose, Pre-Op, PreOp give in preprocedural area. oxybutynin 24 hr tablet 10 mg (DITROPAN-XL) (COMPLETED ) 1329 (Given - Provider: Rosaline Villavicencio RDeepali) 10 mg, oral, Once, Thais 09/10/18 at 1330, For 1 dose, Pre-Op, PreOp give in preprocedural area. Swallow whole. Do NOT crush, chew, or split tablet. oxyCODONE 12 hr tablet 20 mg (OxyCONTIN) (COMPLETED) 1 329 (Given - Provider: Rosaline Villavicencio R.N.) 20 mg, oral, Once, Thais 09/10/18 at 1330, For 1 dose, Pre-Op, PreOp give in preprocedural area. Swallow whole. Do NOT crush, chew, or split tablet. oxyCODONE IR tablet 5 mg (ROXICODONE) (COMPLETED) 1825 (Given - Provider: Yolande Luz R.N.) 5 mg, oral, Once, Thais 09/10/18 at 1830, F or 1 dose, PACU (only), Prior to discharge sennosides-docusate sodium 8.6-50 mg per tablet 1 tabl et (SENOKOT-S) 2105 (Given - Provider: Sada Dawkins RBrisa.) 0919 (Given - Provider: Kassandra Mazariegos RPedroNPedro)2017 (Given - Provider: Dioni Johnson RPedroNPedro) 0801 (Given - Provider: Hawa Haque RDeepali) 1 tablet, oral, 2 times daily, First dos e on Thais 09/10/18 at 2100, Do not give if patient has diarrhea. Continuous Medication Order 09/10/2018 09/11/2018 09/12/2018 lactated ringers () 1332 (New Bag - Provider: Arash Villavicencio R.N.)1815 (Continued from OR - Provider: Yolande Luz R.N.)1999 (Continued from OR - Provider: Job MccartneyNPedro)2253 (Stopped - Provider: Job MccartneyN.) 100 mL/hr, intravenous, at 100 mL/hr, Co ntinuous, Starting Thais 09/10/18 at 1330, For 10 hours, Pre-Op, For total volume of 1,000 mL. NaCl 0.9% infusion (CANCELED) 2252 (New Bag - Provider: Sada Dawkins RPedroNPedro) 0950 (Stopped - Provider: Kassandra Mazariegos RDeepali) [...] (CEPACOL) 2024 (Given - Provider: Dioni Johnson R.N.) 1 lozenge, oral, As needed, sore throat, [...] Intra-Op fentaNYL injection 25 mcg (SUBLIMAZE) (CANCELED) 1827 (Given - Provider: Yolande Luz RPedroN.)183 (Given - Provider: Yolande Luz R.N.)183 (Given [...] () 1152 (Given - Provider: Kassandra Mazariegos RPedroN.) 15 mg, intravenous, Every 6 hours PRN, [...] 30 mL/hour x 2 consecutive hours, Starting [facility] 09/10/18 at 1945, May repeat x 1 within 48 hours. naloxone injection 0.2 mg (NARCAN) 0.2 mg, intravenous, As needed, respirat ory depression, Starting [facility] 09/10/18 at 1945, For respiratory rate less than 8 breaths per minute or RASS score of -3, - 4, -5. Apply oxygen to keep oxygen saturations greater than 90% and notify service. ondansetron (PF) injection 4 mg (ZOFRAN) 4 mg, intravenous, Every 6 hours PRN, na usea, vomiting, Starting [facility] 09/10/18 at 1945, For 48 hours, Reassess for nausea or vomiting after at least 10 minutes. If nausea or vomiting persists administer n ext ordered antiemetic medications (orde r for antiemetic medication administration ondansetron then droperidol then promethazine). oxybutynin tablet 5 mg (DITROPAN) 5 mg, oral, 3 times daily PRN, bladder spasms, Starting [facility] 09/10 at 1945 oxyCODONE IR tablet 5 mg (ROXICODONE) 04 57 (Given - Provider: Dioni Johnson RPedroN.)1209 (Given - Provider: Kassandra Mazariegos RPedroNPedro)1601 (Given - Provider: Mitzy Abdul R.N., C.M.S.R.N.)2018 (Given - Provider: Dioni Johnson R.N.) 0023 (Given - Provider: Dioni Johnson R.N.)0422 (Given - Provider: Dioni Johnson R.N.)0835 (Given - Provider: Hawa Haque R.N.) 5 mg, oral, Every 4 hours PRN, moderate pain or score 4-6 of 10, Starting 09/11/18 at 0029 documented in this encounter Care Teams Director Equipment Relationship Specialty Start Date End Date Gabrielle aJra M.D. PCP - General Family Medicine 10/04/13 [address] [place] [address] documented as of this encounter
--- OUTSIDE RECORDS SUMMARY | 2021-11-21 03:03 | XMS_ITS | Encounter Summary ---
:1990 Author Organization [facility] Address [address] [place] [address] Care Team Providers Name Role Phone Gabrielle Jara M.D. Primary Care Provider Reason for Referral Outpatient (Routine) - Closed Specialty Diagnoses / Procedures Referred By Contact Refer red To Contact Urology Diagnoses Obstruction Ureteral Congenital Isabelle Andrew P.A.-C. [facility] [address] [place] [phone] Referral ID Status Reason Start Date Expiration Date Visits Requ ested Visits Authorized [id number] Closed 08/12/2018 08/12/2019 1 1 Encounter Details Date Type Department Care Team Description 08/12/2018 Orders Only Department of Urology Isabelle Andrew O bstruction Ureteral in EdwardsJagjit P.A.-C. Congenital (Primary Dx) [address] [place] [phone] Social History Tobacco Use Types Packs/Day Years [...] Name Type Priority Associated Order Schedule Diagnoses Urology - Outpatient Routine Obstruction Expected: Reconstruction - other Referral Ureteral Congenita l 08/12/2018 consult (clinic) (Approximat e), Expires: 08/12/2021 documented as of this encounter Visit Diagnoses Diagnosis Obstruction Ureteral Congenital - Primar y documented in this encounter Care Teams Dry Curer Relationship Specialty Start Date End Date Gabrielle Jara M.D. PCP - General Family Medicine 10/04/13 [address] [place] [address] documented as of this encounter
--- OUTSIDE RECORDS SUMMARY | 2021-11-21 03:03 | XMS_ITS | Encounter Summary ---
:1990 Author Organization [facility] Address [address] [place] [address] Care Team Providers Name Role Phone Gabrielle Jara M.D. Primary Care Provider Reason for Visit Outpatient (Routine) - Closed Specialty Diagnoses / Procedures Referred By Contact Refer red To Contact Urology Diagnoses Obstruction Ureteral Congenital Isabelle Andrew P.A.-C. [place] [address], [place] [address] Referral ID Status Reason Start Date Expiration Date Visits Requ ested Visits Authorized [id number] Closed 08/12/2018 08/12/2019 1 1 Encounter Details Date Type Department Care Team Description 08/25/2018 Comprehensive Visit Department of Emil Villarreal, Obstr uction Ureteral Urology in M.D. Congenital [place], [place] [address] [facility] [address] [place] [phone] Social History Tobacco Use Types Packs/Day Years [...] on file documented as of this encounter Consult Notes Darleen Faust P.A.-C. - 08/25/2018 1:00 PM CDT SUBJECTIVE REFERRAL SOURCE The patient is being seen in consultation at the request of Isabelle Andrew P.A.-C. [address] [place] [address] HISTORY OF PRESENT ILLNESS Ms. Alcantara is [...] ?? Miss Alcantara was seen by at [facility] in [place] by Isabelle Andrew PA-C and had a [...] PLACEMENT; Surgeon: Jesus Alberto Velez M.D.; Location: [facility] OR ??? TONSILLECTOMY N/A 1997 Tonsillectomy [...] Date/Time Bacterial Culture, Aerobic + Susc, Urine [[id number]] Collected: 07/30/18 1009 Lab Status: Final result [...] procedure. All questions answered and consent given. Emil Villarreal M.D. - 08/25/2018 1:00 PM CDT SUBJECTIVE REASON FOR CONSULT UPJ obstruction HISTORY OF PRESENT ILLNESS Patient has had several symptomatic episodes of infection of the left kidney. Most recently presented with acute obstruction flank pain nausea vomiting requiring stent placement. PMH/PSH The following portions of the patient's history were reviewed and updated as appropriate: allergies,current medications, family history, medical history, social history, surgical history and problem list. REVIEW OF SYSTEMS REVIEW OF SYSTEMS OBJECTIVE PHYSICAL EXAM URO Physical Exam IMAGING Nm Kidney With Lasix Result Date: 08/12/2018 [...] calculi on either side. No right hydronephrosis. LABS No results found for this or any previous visit (from the past 72 hour(s)). 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 Recurrent pyelonephritis Kidney has 6% function I would not recommend UPJ reconstruction in this setting. The patient is symptomatic and therefore I would recommend simple nephrectomy. Risk and benefits were discussed in detail including conservative management with indwelling ureteral stent. Ultimately the patient is not tolerating the stent in wishes to undergo nephrectomy. Signed by: Emil Villarreal M.D. 08/25/2018 2:16 PM documented in this encounter Plan of Treatment Not on filedocumented as of this encounter Results Bacterial Culture, Aerobic + Susc, Urine (08/25/2018 2:59 PM CDT) Patholo gist Method Time Signature Urine Culture No growth 08/26/2018 [facility] after 1 12:40 PM CDT LABORATORIES - [facility] . Specimen Anatomical Collection Method Collection Time Receive d Time (Source) Location / / Volume Laterality Urine (Urine, 08/25/2018 2:59 PM 08/26/19 19 3:40 Midstream) CDT PM CDT Comment: Specimen Source Site: Urine Darleen Faust P.A.-C. LAB MICROBIOLOGY - GENERAL O RDERABLES Performing Organization Address City/[facility]/ZIP [facility] Phon e Number [facility] LABORATORIES - [address] ABORh, RBC (08/25/2018 2:28 PM CDT) Analysis Performed At Patho logist Time Signature ABORh A Pos Not applicable 08/25/2018 [facility] 6:22 PM CDT LABORATORIES - [facility] Specimen Anatomical Collection Method Collection Time Receive d Time (Source) Location / / Volume Laterality Blood (Blood, 08/25/2018 2:28 PM 08/26/19 19 3:38 Venous) CDT PM CDT Darleen Faust P.A.-C. LAB BLOOD BANK TEST ORDERABL ES Performing Organization Address City/[facility]/ZIP Code Phon e Number [facility] LABORATORIES - [address] [place] [phone] [facility] Basic Metabolic Panel (08/25/2018 2:28 PM CDT) P athologist Signature Potassium, S 4.1 3.6 - 5.2 08/25/2018 [facility] mmol/L 3:27 PM CDT LABORATORIES - [facility] Sodium, S 139 135 - 145 08/25/2018 [facility] mmol/L 3:27 PM CDT LABORATORIES - [facility] Chloride, S 102 98 - 107 08/25/2018 [facility] mmol/L 3:27 PM CDT LABORATORIES - [facility] Bicarbonate, S 25 22 - 29 08/25/2018 [facility] mmol/L 3:27 PM CDT LABORATORIES - [facility] Anion Gap 12 7 - 15 08/25/2018 [facility] 3:27 PM CDT LABORATORIES - [facility] BUN (Blood 13 6 - 21 08/25/2018 [facility] Urea mg/dL 3:27 PM CDT LABORATORIES - Nitrogen), S [facility] Creatinine, S 0.83 0.59 - 08/25/2018 [facility] 1.04 mg/dL 3:27 PM CDT LABORATORIES - [facility] eGFR-Non >90 >=60 08/25/2018 [facility] Black/ mL/min/BSA 3:27 PM CDT LABORATORIES - [facility] Comment: ----ADDITIONAL INFORMATION---- Estimated GFR calculated using the 2009 CKD_EPI creatinine equation. eGFR-Black/ >90 >=60 mL/min/BSA 08/25/2018 3:27 [facility] CDT LABORATORIES [facility] Comment: ----ADDITIONAL INFORMATION---- Estimated GFR calculated using the 2009 CKD_EPI creatinine equation. Calcium, Total, S 8.7 8.6 - 10.0 mg/dL 08/25/2018 3:27 PM [facility] CDT [facility] Glucose, S 89 70 - 140 mg/dL 08/25/2018 3:27 PM [facility] CDT LABORATORIES [facility] Specimen Anatomical Collection Method Collection Time Receive d Time (Source) Location / / Volume Laterality Blood (Blood, 08/25/2018 2:28 PM 08/26/19 19 2:52 Venous) CDT PM CDT Darleen Faust P.A.-C. LAB BLOOD ADD-ON Performing Organization Address City/State/ZIP Code Phon e Number [facility] LABORATORIES - [address] [place], [place] [address] [facility] (ABNORMAL) CBC with Differential, Blood (08/25/2018 2:28 PM CDT) [facility] Method Time Signature Hemoglobin 15.0 11.6 - 08/25/2018 [facility] 15.0 g/dL 3:00 PM CDT LABORATORIES - [facility] Hematocrit 44.9 35.5 - 08/25/2018 [facility] 44.9 % 3:00 PM CDT LABORATORIES - [facility] Erythrocytes 4.78 3.92 - 08/25/2018 [facility] 5.13 3:00 PM CDT LABORATORIES - x10(12)/L [facility] MCV 93.9 78.2 - 08/25/2018 [facility] 97.9 fL 3:00 PM CDT LABORATORIES - [facility] RBC Distrib 12.0 (L) 12.2 - 08/25/2018 [facility] Width 16.1 % 3:00 PM CDT LABORATORIES - [facility] Platelet Count 241 157 - 371 08/25/2018 [facility] x10(9)/L 3:00 PM CDT LABORATORIES - [facility] Leukocytes 8.5 3.4 - 9.6 08/25/2018 [facility] x10(9)/L 3:00 PM CDT LABORATORIES - [facility] Neutrophils 5.50 1.56 - 08/25/2018 [facility] 6.45 3:00 PM CDT LABORATORIES - x10(9)/L [facility] Lymphocytes 1.96 0.95 - 08/25/2018 [facility] 3.07 3:00 PM CDT LABORATORIES - x10(9)/L [facility] Monocytes 0.75 0.26 - 08/25/2018 [facility] 0.81 3:00 PM CDT LABORATORIES - x10(9)/L [facility] Eosinophils 0.26 0.03 - 08/25/2018 [facility] 0.48 3:00 PM CDT LABORATORIES - x10(9)/L [facility] Basophils <0.03 0.01 - 08/25/2018 [facility] 0.08 3:00 PM CDT LABORATORIES - x10(9)/L [facility] Specimen Anatomical Collection Method Collection Time Receive d Time (Source) Location / / Volume Laterality Blood (Blood, 08/25/2018 2:28 PM 08/26/19 19 2:52 Venous) CDT PM CDT Darleen Faust P.A.-C. LAB BLOOD ADD-ON Performing Organization Address City/State/ZIP Code Phon e Number [facility] LABORATORIES - [address] [place], [place] [address] [facility] documented in this encounter Visit Diagnoses Diagnosis Obstruction Ureteral Congenital documented in this encounter Care Teams Illustrator Set Relationship Specialty Start Date End Date Gabrielle Jara M.D. PCP - General Family Medicine 10/04/[address] [place] [address] documented as of this encounter
--- OUTSIDE RECORDS SUMMARY | 2021-11-21 03:03 | XMS_ITS | Encounter Summary ---
:1990 Author Organization [facility] Address [address] [place] [address] Care Team Providers Name Role Phone Gabrielle Jara M.D. Primary Care Provider Reason for Visit Reason Comments Pre-op Exam DOS: 08/11/18 - Prince Velez M.D. -LEFT RETROGRADE PYELOGRAM WITH LEFT URETERAL STENT PLACEMENT Outpatient (Routine) - Closed Specialty Diagnoses / Procedures Referred By Contact Refer red To Contact Family Medicine Diagnoses Obstruction Ureteral Congenital Isabelle Andrew [facility] P.A.-C. [address] [place] [phone] Referral ID Status Reason Start Date Expiration Date Visits Requ ested Visits Authorized [id number] Closed 08/06/2018 08/06/2019 1 1 Encounter Details Date Type Department Care Team Description 08/10/2018 Office Visit Department of Family Vandana Young perative Exam (Primary Dx); Nirav Flowers PPedroAPedro-CPedro Obstruction Ureteral Congenital [facility] [id number] [place] [id number] [place] [address] [place], [place] (Work) [phone] Social History Tobacco Use [...] Sign Reading Time Taken Comments Blood Pressure 121/83 08/10/2018 12:28 PM CDT Pulse 67 08/10/2018 11:59 AM CDT Temperature 36.5 ??C (97.7 ??F) 08/10/2018 11:59 AM CDT Respiratory Rate 18 08/10/2018 11:59 AM CDT Oxygen Saturation 100% 08/10/2018 11:59 AM CDT Inhaled Oxygen Concentration - - Weight 97 kg (213 lb 13.5 oz) 08/10/2018 11:59 AM CDT Height 180.5 cm (5' 11.06) 08/10/2018 11:59 AM CDT Body Mass Index 29.77 08/10/2018 11:59 AM CDT documented in this encounter H&P Notes Vandana Young P.A.-C. - 08/10/2018 12:00 PM CDT SUBJECTIVE CHIEF COMPLAINT/REASON FOR VISIT Cherry Alcantara is a 28 y.o. female who presents for evaluation of Pre-op Exam (DOS: 08/11/18 -Jesus Alberto Velez M.D. -LEFT RETROGRADE PYELOGRAM WITH LEFT URETERAL STENT PLACEMENT ). HISTORY OF PRESENT ILLNESS Miranda is a 28-year-old female who presents today for preoperative evaluation. The patient is havinga left retrograde pyelogram with left ureteral stent placement in [place] with Dr. Jesus Alberto Velez on 08/11/2018. She rates her left flank pain at 3/10 currently. Patient Active Problem List Diagnosis ??? Atrophic Kidney ??? Hydronephrosis The patient denies any personal history of bleeding or clotting disorders. She denies any cardiac history, diabetes, stroke, trouble with anesthesia. The following portions of the patient's history were reviewed and updated as appropriate: allergies,current medications, family history, medical history, social history, surgical history and problem list. CURRENT MEDICATIONS Current Outpatient Prescriptions: ??? MARLISSA 0.15-0.03 mg per tablet, Take 1 tablet by mouth daily., Disp: 84 tablet, Rfl: 4 ??? oxyCODONE (ROXICODONE) 5 mg immediate release tablet, Take 1 tablet (5 mg total) by mouth every 6 (six) hours as needed for severe pain or score 7-10 of 10 Indication: Acute Pain., Disp: 10 tablet,Rfl: 0 No current facility-administered medications for this visit. MEDICAL HISTORY Past Medical History: Diagnosis Date ??? Infection Kidney 01/18/2011 function 12% date unknown SURGICAL HSITORY Past Surgical History: Procedure Laterality Date ??? TONSILLECTOMY N/A 1997 Tonsillectomy ??? TYMPANOTOMY N/A 2007 Myringotomy FAMILY HISTORY Family History Problem Relation Age of Onset ??? Kidney cancer Grandfather ??? Prostate cancer Grandfather ??? Depression Mother ??? No Known Problems Father ??? Urolithiasis Father's Brother ??? Anesthesia problems Neg Hx SOCIAL HISTORY Social History Social History ??? Marital status: Spouse name: N/A ??? Number of children: 2 Social History Main Topics ??? Smoking status: Former Smoker ??? Smokeless tobacco: Never Used ??? Alcohol use Yes Comment: Holidays, 3 times monthly ??? Drug use: No REVIEW OF SYSTEMS Constitutional: Negative for fever, weight gain of more than 10 pounds and weight loss of more than 10 pounds. Skin: Negative for skin rash. Eyes: Negative for double vision and visual problems. ENT: Negative for difficulty hearing and sinus congestion. Respiratory: Negative for dyspnea and wheezing. Cardiovascular: Negative for chest pain, pressure or tightness and swelling in the legs or feet. Gastrointestinal: Positive for abdominal (belly) pain or cramping. Negative for blood in stool, constipation, diarrhea, nausea and vomiting. Genitourinary: Positive for pain with urination (pain in the left abdomen following urination). Negative for difficulty urinating and hematuria. Hematologic: Negative for bruises or bleeds easily. Musculoskeletal: Negative for back pain and muscle pain/stiffness. Neurological: Negative for loss of consciousness and headaches. OBJECTIVE VITAL SIGNS Blood pressure 121/83, pulse 67, temperature 36.5 ??C, temperature source Temporal, resp. rate 18, height 180.5 cm, weight 97 kg, last menstrual period 07/15/2018, SpO2 100 %, not currently . PHYSICAL EXAMINATION Constitutional: She is oriented to person, place, and time. She appears well- developed and well-nourished. HENT: Head: Normocephalic. Right Ear: Tympanic membrane, external ear and ear canal normal. Left Ear: Tympanic membrane, external ear and ear canal normal. Mallampati II Eyes: Conjunctivae and EOM are normal. Pupils are equal, round, and reactive to light. Neck: Normal range of motion. Neck supple. Cardiovascular: Normal rate, regular rhythm and normal heart sounds. Exam reveals no gallop and no friction rub. No murmur heard. Pulmonary/Chest: No respiratory distress. She has no wheezes. She has no rales. She exhibits no tenderness, no deformity and no retraction. Abdominal: Soft. Bowel sounds are normal. She exhibits no distension and no mass. There is no tenderness. Musculoskeletal: Normal range of motion. Lymphadenopathy: She has no cervical adenopathy. Right: No supraclavicular adenopathy present. Left: No supraclavicular adenopathy present. Neurological: She is alert and oriented to person, place, and time. No cranial nerve deficit. Skin: Skin is warm and dry. Capillary refill takes less than 2 seconds. Psychiatric: She has a normal mood and affect. DIAGNOSTICS 08/04/2018 Test, POCT, U Negative ASSESSMENT / PLAN #1 Obstruction Ureteral Congenital Patient is deemed to be medically optimized for planned surgical procedure and low risk for a perioperative cardiac event. Patient is capable of climbing a flight of stairs without unusual dyspnea or chest pain. No additional cardiac testing is needed. #2 Preoperative Exam As noted above documented in this encounter Plan of Treatment Not on filedocumented as of this encounter Visit Diagnoses Diagnosis Preoperative Exam - Primary Obstruction Ureteral Congenital documented in this encounter Care Teams Accounting Manager Cpa Relationship Specialty Start Date End Date Gabrielle Jara M.D. PCP - General Family Medicine 10/04/[address] [place] [address] documented as of this encounter
--- OUTSIDE RECORDS SUMMARY | 2021-11-21 03:03 | XMS_ITS | Encounter Summary ---
:1990 Author Organization [facility] Address [address] [place] [address] Care Team Providers Name Role Phone Gabrielle Jara M.D. Primary Care Provider Reason for Visit Auth/Cert Specialty Diagnoses / Procedures Referred By Contact Refer red To Contact Diagnoses Obstruction Ureter Procedures IA LAPAROSCOPY PARTL NEPHRECTOMY Robotic-Assisted Nephrectomy - Simple Referral ID Status Reason Start Date Expiration Date Visits Requ ested Visits Authorized [id number] 1 1 Encounter Details Date Type Department Care Team Description 09/10/2018 Anesthesia Event [facility] PRAVEEN QUINTANILLA OR Roddy Calderon M.D. [address] [place] [phone] [address] [facility] A[facility] OPERATIONS INTELLIGENCE OFFICER, FLARING MACHINE OPERATOR [address] [place] [phone] [place] [address] Anesthesia Record Procedure Summary Procedure Name Responsible Anesthesia Start Anesthesia Stop Time Anesthesiologist Time Robotic-Assisted Roddy Calderon M.D. 09/10/18 1410 1805 Nephrectomy, Simple. (Left) Events Date Time Event Comment 09/10/2018 1322 1410 An Start Machine/Equipmen t Checked Infection Precautions Foll owed Procedure/Site Verified NPO Sta tus Verified Supine Standard ASA Mon itors Applied 1425 An Induction 1429 An Intubation 1431 Turnover to Proceduralist 1513 Proc Start 1745 Proc Fin 1758 Turnover to ANE Staff 1759 Airway Removal Criteria Met 1759 Extubation/Airway Removed 1805 An End I completed my h andoff to the receiving staff during [facility] we 1. Identified the patient 2. Ident ified the responsible provider 3. Revi ewed the pertinent medical history 4. Discussed the surgical course 5. Review ed intra-op anesthesia management and i ssues during anesthesia 6. Set expectati ons for post-procedure period 7. Allowe d opportunity for questions and ac knowledgement of understanding. 1805 an stop data Name Total midazolam 1 mg/mL injection 2 mg fentanyl injection 50 mcg/mL 450 mcg lidocaine 2% (mg) injection 100 mg propofol 10 mg/mL 200 mg ondansetron 4 mg/2 mL injection 4 mg sugammadex 100 mg/mL injection 200 mg rocuronium 10 mg/mL injection 130 mg dexamethasone 4 mg/mL injection 4 mg ceFAZolin injection 2 g (ANCEF) 2 g droperidol 2.5 mg/mL injection 0.625 mg Lactated Ringers Free Drip 500 mL lactated ringers free drip 1,500 mL Agents No agents on file. Blood No blood administrations on file. Lines, Drains, and Airways Type Details Placement Removal Indwelling Urinary Placement Date: 09/10/18 0000 by 09/11/18 091 5 by Catheter 09/10/18; Inserted by: Michelle Neely Hanso n, Cindy R, Saponari; Type: Latex; M.S.N., R.N. R.N. Size: 16 Fr.; Balloon Size: 5 mL; Urine Returned: Yes; Removal Date: 09/11/18; Removal Time: 914; Removal Reason: Criteria for drain removal met Peripheral IV Placement Date: 09/10/18 1048 by 09/12/18 0919 b y 09/10/18; Placement Gabrielle Bro Alexander, Lori A, Time: 1048; Catheter R.N. R.N. Size: 20 G; Orientation: Right; Location: Forearm; Site Prep: Chlorhexidine (Preferred); Technique: Anatomical landmarks; Insertion Attempts: 1; Removal Date: 09/12/18; Removal Time: 918; Removal Reason: Patient discharged Peripheral IV Placement Date: 09/10/18 1428 by 09/12/18 0842 b y 09/10/18; Placement Greg Walker Alexander, L ori A, Time: 1428; Catheter DIRK PERERA R.N. Size: 16 G; Orientation: Left; Location: Hand; Removal Date: 09/12/18; Removal Time: 0842; Removal Reason: Per protocol ETT Placement Date: 09/10/18 1429 by 09/10/18 1759 b y 09/10/18; Placement Greg Walker, Ayush Walker it, Time: 142 (created via AOC OPERATIONS INTELLIGENCE OFFICER, FLARING MACHINE OPERATOR AOC OPERATIONS INTELLIGENCE OFFICER, SERGEI CANDELARIO procedure documentation); Mask Ventilation: Easy mask; Type: Standard ETT; Single Lumen Tube Size: 7 mm; Cuffed: Yes; Blade Size: Germain 2; Location: Oral; Removal Date: 09/10/18; Removal Time: 1758 NG/OG Tube 09/10/18; 1435; 09/10/18 1435 by 09/10/18 1758 b y Orogastric; 18 Fr; Marleen Mendez Paul, Bi swajit, 09/10/18; 1758 AOC OPERATIONS INTELLIGENCE OFFICER, FLARING MACHINE OPERATOR AOC OPERATIONS INTELLIGENCE OFFICER, FLARING MACHINE OPERATOR Closed/Suction Drain 09/10/18; 1717; Left; 09/10/18 1717 by 08/14 05/02 1815 by LUQ; Bulb; 15 Fr.; Per Yareli Carter, RPedroNNatacha Goode S, R.NPedro (RETIRED) Incision 09/10/18; 1733; Abdomen; 09/10/18 1733 by 1418 by MANGO PRM WND NONADH 2X3 [employer] [facility] (x4); 01/02/21 (Removed R, M.S.N., R.N. nd, Sche duling by background completion Automat ed Batch Job utility); 1418 (Removed by background completion utility) documented in this encounter Social History Tobacco [...] encounter OR Notes Anesthesia Postprocedure Evaluation - Roddy Calderon M.D. - 09/10/2018 6:06 PM CDT Patient: Cherry Alcantara Procedure Summary Date: 09/10/18 Room / Location: [place] [address] / [facility] in [place], [place] Anesthesia Start: 1410 Anesthesia Stop: Procedure: Robotic-Assisted Nephrectomy, Simple. (Left ) Diagnosis: Obstruction Ureter (Obstruction Ureter [N13.5].) Provider: Emil Villarreal M.D. Responsible Provider: Roddy Calderon M.D. Anesthesia Type: general ASA Status: 2 Anesthesia Type: general Last vitals Vitals Value Taken Time BP 157/98 09/10/2018 6:05 PM Temp Pulse 102 09/10/2018 6:05 PM Resp 19 09/10/2018 6:06 PM SpO2 95 % 09/10/2018 6:05 PM Vitals shown include unvalidated device data. Please reference Vitals flowsheet for most recent vital signs. Anesthesia Post Evaluation Patient Disposition: general care unit Cardiovascular status: hemodynamics (HR & BP) acceptable Respiratory status: patent airway with spontaneous effort Temperature: normothermic Oxygen requirements: room air Level of consciousness: awake Pain score: pain adequately controlled and/or at baseline Post Op nausea/vomiting: none Hydration status: euvolemic Anesthesia Procedure Notes - Greg Walker APRN, CRNA - 09/10/2018 2:30 PM CDT Associated Order(s): AIRWAY MANAGEMENT Airway Date/Time: 09/10/2018 2:29 PM Patient location during procedure: OR / Procedure Area Performed by: GREG WALKER Authorized by: RODDY CALDERON Pre procedure details Pre evaluation for airway management: procedure Urgency: elective Preop assessment of probable difficulty: no difficulty anticipated Sedation level: anesthetized Preoxygenation: bag valve mask Procedure details Mask difficulty assessment: easy mask Final airway type: direct laryngoscopy, intubation Laryngeal Manipulation: no Final airway difficulty of direct laryngoscopy (DL): 0-easy Final best view of glottic structures - Cormack/Lehane Score: grade 1 ETT location: oral Adult blade type: Germain 2 Adult tube size: 7 Adult ETT distance at teeth/gum: 22 Oral tube type: standard ETT Cuffed: yes Number of attempt to successful placement: 1 Airway confirmation: bilateral breath sounds, positive ETCO2 and bilateral chest rise Other previous techniques attempted: none Post procedure details Procedure outcome: successful Airway event: no complications Anesthesia Preprocedure Evaluation - Roddy Calderon M.D. - 09/10/2018 1:22 PM CDT Anesthesia Pre-Evaluation Pertinent components of the patient's history including current problem list, medical history, surgical history, family history, social history, medications and allergies were reviewed and updated as appropriate. The patient was examined and the Pre-op diagnosis, planned procedure, and H&P were reviewed and remain unchanged. PROBLEM LIST Relevant Problems No relevant active problems OBJECTIVE PHYSICAL EXAMINATION Airway (HEENT) Mallampati: I TM Distance: >3 FB Neck ROM: Full Mouth Opening: >3 cm Cardiovascular Rhythm: Regular Rate: Normal Cardiovascular Assessment: cardiovascular normal Functional Capacity: >4 METS Pulmonary Pulmonary Assessment: Clear Neurological Normal Dental Normal General / Constitutional Normal ASSESSMENT / PLAN ANESTHESIA PLAN ASA: 2 Anesthesia Plan: general Patient seen and allergies reviewed; anesthesia plan and risks discussed directly with patient / legal guardian, or through an international nurse; patient evaluated and approved for anesthesia / sedation. The use of blood products not discussed documented in this encounter Plan of Treatment Not on filedocumented as of this encounter Procedures Procedure Name Priority Date/Time Associated Comments Diagnosis LDA ANE ENDOTRACHEAL Routine 09/10/2018 2:30 PM R esults for this AIRWAY CDT procedure are i n the results section. documented in this encounter Results LDA ANE ENDOTRACHEAL AIRWAY (09/10/2018 2:30 PM CDT) Narrative Greg Walker APRN, CRNA - 09/10/2018 2:30 PM CDT Greg Walker APRN, CRNA ? 09/10/2018 ??2:31 PM Airway Date/Time: 09/10/2018 2:29 PM Patient location during procedure: OR / Procedure Area Performed by: GREG WALKER Authorized by: RODDY CALDERON Pre procedure details ?? Pre evaluation for airway management : procedure ?? Urgency: elective ?? Preop assessment of probable difficu lty: no difficulty anticipated ?? Sedation level: anesthetized ?? Preoxygenation: bag valve mask Procedure details ??Mask difficulty assessment: easy mask ?? Final airway type: direct laryngosco py, intubation Laryngeal Manipulation: no ? Final airway difficulty of direct la ryngoscopy (DL): 0-easy ?? Final best view of glottic structure s - Cormack/Lehane Score: grade 1 ?? ETT location: oral ?? Adult blade type: Germain 2 ?? Adult tube size: 7 ?? Adult ETT distance at teeth/gum: 22 ?? Oral tube type: standard ETT ?? Cuffed: yes ?? Number of attempt to successful plac ement: 1 ?? Airway confirmation: bilateral breat h sounds, positive ETCO2 and bilateral chest rise ?? Other previous techniques attempted: none Post procedure details ?? Procedure outcome: successful ? Airway event: no complications Procedure Note Greg Walker APRN, CRNA - 09/10/2018 2:30 PM CDT Airway Date/Time: 09/10/2018 2:29 PM Patient location during procedure: OR / Procedure Area Performed by: GREG WALKER Authorized by: RODDY CALDERON Pre procedure details Pre evaluation for airway management: p rocedure Urgency: elective Preop assessment of probable difficulty : no difficulty anticipated Sedation level: anesthetized Preoxygenation: bag valve mask Procedure details Mask difficulty assessment: easy mask Final airway type: direct laryngoscopy, intubation Laryngeal Manipulation: no Final airway difficulty of direct laryn goscopy (DL): 0-easy Final best view of glottic structures - Cormack/Lehane Score: grade 1 ETT location: oral Adult blade type: Germain 2 Adult tube size: 7 Adult ETT distance at teeth/gum: 22 Oral tube type: standard ETT Cuffed: yes Number of attempt to successful placeme nt: 1 Airway confirmation: bilateral breath s ounds, positive ETCO2 and bilateral chest rise Other previous techniques attempted: no ne Post procedure details Procedure outcome: successful Airway event: no complications Roddy Calderon M.D. ANESTHESIA ORDERABLES documented in this encounter Visit Diagnoses Not on filedocumented in this encounter Administered Medications Inactive Administered Medications - up to 3 most recent administrations Medication Order MAR Action Action Date Dose Rate Site ceFAZolin injection 2 g (ANCEF) Given 09/10/2018 3:09 PM CDT 2 g 2 g, intravenous, Every 8 hours, First dose on Thais 09/10/18 at 1400, Intra-Op, [place] IV push over 3 minutes. Add 5 mL NS to 1 gram vial for a final concentration of 200 mg/mL., Drug Monitoring Program: Pharmacist to adjust medication dosing based on indication and drug clearance factors., Indications: Prophylaxis, surgical dexamethasone injection (DECADRON) Given 09/10/2018 3:09 PM CDT 4 mg As needed, Starting on Thais 09/10/18 at 1509, Anesthesia Intra-op droperidol injection (INAPSINE) Given 09/10/2018 5:26 PM CDT 0.625 mg intravenous, As needed, nausea, vomiting, Starting on Thais 09/10/18 at 1726, Anesthesia Intra-op fentaNYL injection (SUBLIMAZE) Given 09/10/2018 6:20 PM CDT 50 mcg intravenous, As needed, severe pain or score 7-10 of 10, Starting on Thais 09/10/18 at 1424, Anesthesia Intra-op Given 09/10/2018 5:50 PM CDT 50 mcg Given 09/10/2018 5:40 PM CDT 100 mcg lactated ringers New Bag 09/10/2018 2:10 PM CDT intravenous, Continuous Infusion: Per Instructions PRN, Starting on Thais 09/10/18 at 1410, Anesthesia Intra-op lactated ringers New Bag 09/10/2018 5:05 PM CDT intravenous, Continuous Infusion: Per Instructions PRN, Starting on Thais 09/10/18 at 1430, Anesthesia Intra-op New Bag 09/10/2018 2:30 PM CDT lidocaine (PF) (cardiac) injection Given 09/10/2018 2:25 PM CDT 40 mg intravenous, As needed, Starting on Thais 09/10/18 at 1424, Anesthesia Intra-op Given 09/10/2018 2:24 PM CDT 60 mg midazolam (PF) injection (VERSED) Given 09/10/2018 2:31 PM CDT 2 mg intravenous, As needed, Starting on Thais 09/10/18 at 1431, Anesthesia Intra-op ondansetron (PF) injection (ZOFRAN) Given 09/10/2018 5:26 PM CDT 4 mg intravenous, As needed, nausea, vomiting, Starting on Thais 09/10/18 at 1726, Anesthesia Intra-op propofol injection (DIPRIVAN) Given 09/10/2018 2:26 PM CDT 50 mg intravenous, As needed, Starting on Thais 09/10/18 at 1425, Anesthesia Intra-op Given 09/10/2018 2:25 PM CDT 150 mg rocuronium injection (ZEMURON) Given 09/10/2018 3:45 PM CDT 30 mg As needed, Starting on Thais 09/10/18 at 1426, Anesthesia Intra-op Given 09/10/2018 3:06 PM CDT 50 mg Given 09/10/2018 2:26 PM CDT 50 mg sugammadex injection (BRIDION) Given 09/10/2018 5:29 PM CDT 200 mg As needed, Starting on Thais 09/10/18 at 1729, Anesthesia Intra-op documented in this encounter Care Teams Breaster Relationship Specialty Start Date End Date Gabrielle Jara M.D. PCP - General Family Medicine 10/04/13 [address] [place] [address] documented as of this encounter
--- OUTSIDE RECORDS SUMMARY | 2021-11-21 03:03 | XMS_ITS | Encounter Summary ---
:1990 Author Organization [facility] Address [address] [place] [address] Care Team Providers Name Role Phone Gabrielle Jara M.D. Primary Care Provider Reason for Visit Reason Onset Date Comments creatinine ? 08/19/2018 Encounter Details Date Type Department Care Team Description 08/19/2018 Clinical Communication Department of Urology Enio Villarreal, creatinine ? in [place] Garcia [address] [place] [phone] Social History Tobacco Use Types Packs/Day Years [...] this encounter Miscellaneous Notes Telephone Encounter - Lolis Giron - 08/19/2018 8:56 AM CDT Canceled blood work and called patient Telephone Encounter - Emil Villarreal M.D. - 08/19/2018 8:53 AM CDT No that will be fine Telephone Encounter - Lolis Giron - 08/19/2018 8:23 AM CDT Patient scheduled to see Dr. Villarreal on 08/25/2018 - referred from [facility]. Scheduled for creatinine, last one was 08/04/2018 - she was originally scheduled to see Dr. Villarreal on 09/25/2018but it was moved up. Calling to see if she really needs the repeat creatinine ? documented in this encounter Plan of Treatment Not on filedocumented as of this encounter Visit Diagnoses Not on filedocumented in this encounter Care Teams Manager Utilization Management Relationship Specialty Start Date End Date Gabrielle Jara M.D. PCP - General Family Medicine 10/04/13 [address] [place] [address] documented as of this encounter
--- OUTSIDE RECORDS SUMMARY | 2021-11-21 03:03 | XMS_ITS | Encounter Summary ---
:1990 Author Organization [facility] Address [address] [place] [address] Care Team Providers Name Role Phone Gabrielle Jara M.D. Primary Care Provider Encounter Details Date Type Department Care Team Description 08/12/2018 Documentation Department of [place]rology in [place] [address] [address] [facility] [address] [place] [address] [place], [place] [phone] (Wo rk) Social History Tobacco Use Types [...] documented as of this encounter Progress Notes [place] P.A.-C. - 08/12/2018 5:01 PM CDT Patient not seen - Mag 3 renal scan results I was able to reach Radha, we reviewed NM scan, L kidney is functioning at 6%. She voices understanding, likely will need radical nephrectomy, but final decision will come from team in [place]. She was offered office visit with myself or to discuss further, but she does not feel this is necessary, she prefers direct referral to Dr. Villarreal and his team in [place]. This is reasonable. I have placed electronic referral to [facility]. documented in this encounter Plan of Treatment Not on filedocumented as of this encounter Visit Diagnoses Not on filedocumented in this encounter Care Teams Boiler Maker Relationship Specialty Start Date End Date Gabrielle Jara M.D. PCP - General Family Medicine 10/04/[address] [place] [address] documented as of this encounter
--- OUTSIDE RECORDS SUMMARY | 2021-11-21 03:03 | XMS_ITS | Encounter Summary ---
:1990 Author Organization [facility] Address [address] [place] [address] Care Team Providers Name Role Phone Gabrielle Jara M.D. Primary Care Provider Reason for Visit MRI/CAT/PET Scan (Routine) - Closed Specialty Diagnoses / Procedures Referred By Contact Refer red To Contact Radiology Diagnoses Pain Left Upper Quadrant Vandana Young P.A.-C. [facility] Region Procedures CT Abdomen Pelvis with IV Contrast CT Abdomen Pelvis without IV Contrast LA CT ABD&PELVIS WO CNTRST HC CT ABD&PELVIS WO CNTRST LA CT ABD&PELVIS WO CNTRST LA CT ABD&PELVIS W CNTRST HC CT ABD&PELVIS W CNTRST [address] ABD&[place] [address] Referral ID Status Reason Start Date Expiration Date Visits Requ ested Visits Authorized [id number] Closed 08/04/2018 08/04/2019 1 1 Encounter Details Date Type Department Care Team Description 08/04/2018 Hospital Encounter Department of Vandana Young Pain Left Upper Radiology in Nirav De Los Santos P.A.-C. [place], [place] [address] [phone] Social History Tobacco Use Types Packs/Day Years [...] 1 tablet (5 mg 10 tablet 0 08/10/2018 mg immediate release total) by mouth tabletIndications: Acute every 6 (six) hours Pain as needed for severe pain or score 7-10 of 10 Indication: Acute Pain. documented as of this encounter Plan of Treatment Not on filedocumented as of this encounter Procedures Procedure Name Priority Date/Time Associated Comments Diagnosis CT ABDOMEN PELVIS RAD - Routine 08/04/2018 3:08 Pain Left Upper Res ults for this WITH IV CONTRAST (most inpatients PM CDT Quadrant procedu re are in and all the results outpatients) section. documented in this encounter Results CT Abdomen Pelvis with IV Contrast (08/04/2018 3:08 PM CDT) Anatomical Region Laterality Modality Abdomen, Pelvis, Abdominal RST LOS, Abdominal ARZ LOS, N/A Computed Tomography Abdominal FLA LOS Specimen (Source) Anatomical Collection Method Collection Time Re ceived Time Location / / Volume Laterality 08/04/2018 3:10 PM CDT Impressions 08/04/2018 3:17 PM CDT IMPRESSION: 1. Severe left pelvocaliectasis/hydronep hrosis without hydroureter or obstructing ureteral stone. Findings sug gest acute on chronic UPJ obstruction. Delayed left nephrogram and severe corti poncho atrophy. 2. No nephroureteral calculi on either s adair. No right hydronephrosis. Narrative 08/04/2018 3:17 PM CDT EXAM: CT ABDOMEN PELVIS WITH IV CONTRAST COMPARISON: 01/13/2017 FINDINGS: Lung bases: No pleural or pericardial ef fusion. No suspicious nodule. Abdomen/pelvis: Marked left renal cortic al atrophy. Severe left hydronephrosis/pelvocaliectasis. No left hydroureter or obstructing ureteral stone. No nephroureteral calculi. No rig ht hydronephrosis or hydroureter. Urinary bladder is unremarkable. Gynecol ogic structures are unremarkable. No acute or suspicious abnormality in th e liver, gallbladder, spleen, adrenal glands, or pancreas. No bowel obstructio n. Normal appendix. No significant colonic diverticulosis. No free fluid or free air. No suspicious lymph nodes. Major vessels are patent and normal in c aliber. Bones/soft tissues: Bilateral sacroiliit is. No acute or suspicious bone or soft tissue finding. Mild curvature of the sp ine may be positional. Procedure Note Francesco Montelongo M.D. - 08/04/2018Formattin g of this note might be different from the original. EXAM: CT ABDOMEN PELVIS WITH IV CONTRAST COMPARISON: 01/13/2017 FINDINGS: Lung bases: No pleural or pericardial ef fusion. No suspicious nodule. Abdomen/pelvis: Marked left renal cortic al atrophy. Severe left hydronephrosis/pelvocaliectasis. No left hydroureter or obstructing ureteral stone. No nephroureteral calculi. No rig ht hydronephrosis or hydroureter. Urinary bladder is unremarkable. Gynecol ogic structures are unremarkable. No acute or suspicious abnormality in th e liver, gallbladder, spleen, adrenal glands, or pancreas. No bowel obstructio n. Normal appendix. No significant colonic diverticulosis. No free fluid or free air. No suspicious lymph nodes. Major vessels are patent and normal in c aliber. Bones/soft tissues: Bilateral sacroiliit is. No acute or suspicious bone or soft tissue finding. Mild curvature of the sp ine may be positional. IMPRESSION: 1. Severe left pelvocaliectasis/hydronep hrosis without hydroureter or obstructing ureteral stone. Findings sug gest acute on chronic UPJ obstruction. Delayed left nephrogram and severe corti poncho atrophy. 2. No nephroureteral calculi on either s adair. No right hydronephrosis. Vandana Young P.A.-C. [facility] CT PROCEDURES documented in this encounter Visit Diagnoses Diagnosis Pain Left Upper Quadrant documented in this encounter Administered Medications Inactive Administered Medications - up to 3 most recent administrations Medication Order MAR Action Action Date Dose Rate Site iohexol 300 mg iodine/mL solution Given 08/04/2018 3:05 PM CDT 1 46 mL 146 mL (OMNIPAQUE) 146 mL, intravenous, Once in imaging, contrast, Starting on e 08/04/18 at 1438, For 1 dose sodium chloride 0.9 % flush 86 mL Given 08/04/2018 3:06 PM CDT 86 mL 86 mL, intravenous, Once in imaging, line care, Starting on Fri08/04/18 at 1438, For 1 dose sodium chloride 0.9 % injection 10 mL Given 08/04/2018 3:06 PM CDT 10 mL 10 mL, intravenous, As needed, line care, Starting on Fri08/04/18 at 1438 documented in this encounter Care Teams Inspector Assemblies And Installations Relationship Specialty Start Date End Date Gabrielle Jara M.D. PCP - General Family Medicine 10/04/13 [address] [place] [address] documented as of this encounter
--- OUTSIDE RECORDS SUMMARY | 2021-11-21 03:04 | XMS_ITS | Encounter Summary ---
:1990 Author Organization [facility] Address [address] [place] [address] Care Team Providers Name Role Phone Gabrielle Jara M.D. Primary Care Provider Encounter Details Date Type Department Care Team Description 11/24/2014 Hospital Encounter HX [facility] Kristine Hernandez, MANUFACTURING EXECUTIVE, [facility]- [address] [place] [address] (Wo rk) Social History Tobacco Use Types Packs/Day Years Used Date Smoking Tobacco: Never Assessed Sex Assigned at Date Recorded Not on file documented as of this encounter Last Filed Vital Signs Vital Sign Reading Time Taken Comments Blood Pressure - - Pulse - - Temperature - - Respiratory Rate - - Oxygen Saturation - - Inhaled Oxygen Concentration - - Weight - - Height 179 cm (5' 10.47) 11/24/2014 2:31 PM CDT Body Mass Index - - documented in this encounter Miscellaneous Notes Miscellaneous - Macy Bernard D.O. - 11/25/2014 3:00 PM CDT Normal Results Letter 25 November 2014 CHERRY HALL [address] [facility] [id number] Dear CHERRY HALL, Your WILVER is 6.3, normal. Please call with questions and continue to keep all appointments. Result Name Current Result Previous Result US OB Limited 11/24/2014 11/18/2014 Sincerely, MACY BERNARD [address] [place] [address] Electronic Signature Electronically Signed By: MACY BERNARD DO On: 25 November 2014 This document has images extracted. Source: [facility] The [employer] Document Id: [id number] Miscellaneous - Conversion, Historical Provider Ser - 11/24/2014 11:59 PM CDT Coding Summary-Paper Based CODING DATE: 11/28/[address] [facility] STATUS: * Discharged to Home or Self Care PAYOR: MMSI ADMIT DX: V89.01 Suspected Problem with Amniotic Cavity and Membrane Not Found REASON FOR VISIT DX: V89.01 Suspected Problem with Amniotic Cavity and Membrane Not Found FINAL DX: PRINCIPAL: V89.01 Suspected Problem with Amniotic Cavity and Membrane Not Found SECONDARY: PROCEDURES DOCTOR NAME DATE NOTE: The code number assigned matches the documented diagnosis and / or procedure in the patient's chart. However, the narrative phrase printed from the coding software may appear abbreviated, or result in slightly different terminology. Coded By: ANDREW BALLESTEROS Date Saved: 11/28/2014 10:47 am [facility] Document Id: [id number] documented in this encounter Plan of Treatment Not on filedocumented as of this encounter Visit Diagnoses Not on filedocumented in this encounter Care Teams In School Suspension Coordinator Relationship Specialty Start Date End Date Gabrielle Jara M.D. PCP - General Family Medicine 10/04/13 [address] [place] [address] documented as of this encounter
--- OUTSIDE RECORDS SUMMARY | 2021-11-21 03:04 | XMS_ITS | Encounter Summary ---
:1990 Author Organization [facility] Address [address] [place] [address] Care Team Providers Name Role Phone Gabrielle Jara M.D. Primary Care Provider Encounter Details Date Type Department Care Team Description 01/13/2017 Hospital Encounter HX [facility] Liam Agrawal M.D. [address] [place] [phone] (Wo rk) Social History Tobacco Use Types Packs/Day Years Used Date Smoking Tobacco: Former Sex Assigned at Date Recorded Not on file documented as of this encounter Last Filed Vital Signs Vital Sign Reading Time Taken Comments Blood Pressure 120/70 01/13/2017 9:46 AM CDT Pulse 76 01/13/2017 9:46 AM CDT Temperature - - Respiratory Rate 16 01/13/2017 9:46 AM CDT Oxygen Saturation - - Inhaled Oxygen Concentration - - Weight 88.4 kg (194 lb 14.2 oz) 01/13/2017 9:46 AM CDT Height 179 cm (5' 10.47) 01/13/2017 9:46 AM CDT Body Mass Index 27.59 01/13/2017 9:46 AM CDT documented in this encounter H&P Notes Rianna Agrawal M.D. - 01/13/2017 10:14 AM CDT Clinic Full Note CHIEF COMPLAINT/REASON FOR VISIT Right sided abdominal pain HISTORY OF PRESENT ILLNESS Sarah is a pleasant 26-year-old female with known history of solitary kidney who presents to the clinic today with concern of right flank pain . Symptoms started yesterday morning. She has noticed increasing pain, mild nausea, increased urinary frequency without dysuria, and without fevers. She has tried Tylenol and ibuprofen without relief. Cold helps. No vomiting. MEDICATIONS etonogestrel, Implant, Once ALLERGIES No Known Medication Allergies PAST MEDICAL HISTORY Chronic Acne vulgaris Headache Leak Amniotic Fluid Left kidney infection Pain Back From Preg Tobacco use Historical Decreased Fetus Movement Affecting Preg Management Oligohydramnios Antepartum PROCEDURES/SURGICAL HISTORY Mantoux test (05/16/2011), Myringotomy (2007), Tonsillectomy (1997), PE TUBES - 2 sets, 1 in [place], 1 in [place] (), TONSILLECTOMY - as a child (). SOCIAL HISTORY Date Time: 01/13/2017 09:52 Tobacco: Smoking Status: Former smoker Exposure: Other: Former smoker: quit 03/2014 Alcohol: Use: No Recreational Drugs: Use: None Type: No Results Found FAMILY HISTORY Father: Negative: Sister: Negative: Brother: Negative: Grandfather:Positive: [place] - Renal cancer Uncle:Positive: Kidney stone Grandfather:Positive: [place] - Cancer of prostate SYSTEMS REVIEW As per HPI, otherwise negative. VITAL SIGNS T: 37.0 ??C (Core) HR: 76 RR: 16 BP: 120 / 70 HT: 179 cm WT: 88.4 kg BMI: 27.59 PHYSICAL EXAMINATION GENERAL: Patient is in no distress. Capable of full communication without difficulty. Patient is polite and cooperative. Appropriately dressed and normal hygiene. HEART: Regular rate and rhythm. No murmurs, gallops or rubs noted. LUNGS: Clear to auscultation bilaterally. No expiratory wheeze. No accessory muscles of respirationnoted. ABDOMEN: Right flank tenderness to light palpation radiating into her right lower abdomen. No hepato-splenomegaly. No mass. Normal bowel sounds in all 4 quadrants. EXTREMITIES: No neurovascular compromise. No edema PSYCH: Mood upbeat, pleasant. Affect is congruent. LAB RESULTS -----HEMATOLOGY----- Hgb: 14.7 g/dL (01/13/17) Hct: 42.9 % (01/13/17) WBC: 15 x10(9)/L High (01/13/17) RBC: 4.52 x10(12)/L (01/13/17) MCV: 94.9 fL (01/13/17) RDW: 13.1 % (01/13/17) Platelet: 241 x10(9)/L (01/13/17) Neutro Absolute: 10.17 10(9)/L High (01/13/17) Lymph Absolute: 3.31 x10(9)/L High (01/13/17) [place] Absolute: 1.39 x10(9)/L High (01/13/17) Eos Absolute: 0.12 x10(9)/L (01/13/17) Baso Absolute: 0.02 x10(9)/L (01/13/17) -----CHEMISTRY----- Sodium Lvl: 138 mmol/L (01/13/17) Potassium Lvl: 4.3 mmol/L (01/13/17) Chloride: 101 mmol/L (01/13/17) CO2: 23 mmol/L (01/13/17) AGAP: 14 mmol/L (01/13/17) Glucose Lvl: 93 mg/dL (01/13/17) Creatinine: 0.66 mg/dL (01/13/17) EGFR (MDRD): >60 (01/13/17) EGFR (MDRD): >60 (01/13/17) BUN: 10 mg/dL (01/13/17) Calcium Lvl: 9.2 mg/dL (01/13/17) CRP: 21.1 mg/L High (01/13/17) -----URINE/STOOL----- UA Color: Yellow (01/13/17) UA Clarity: Clear (01/13/17) UA Spec Grav: 1.010 (01/13/17) UA pH: 6.5 (01/13/17) UA Protein: Negativ (01/13/17) UA Glucose: Negativ (01/13/17) UA Ketones: 15 Abnormal (01/13/17) UA Bili: Negativ (01/13/17) UA Urobilinogen: 0.2 (01/13/17) UA Blood: Trace... Abnormal (01/13/17) UA Nitrite: Negativ (01/13/17) UA Leuk Est: Negativ (01/13/17) UR WBC: Occ-3 (01/13/17) UR RBC: Occ-2 (01/13/17) UR Squamous Epi Cells: 4-10 Abnormal (01/13/17) DIAGNOSTIC RESULTS 13-Jan-2017 11:21:00 Exam: CT ABDOMEN wo & PELVIS wo Indications: right flank pain 13-Jan-2017 11:39 CA PROCEDURE: CT scan of the Abdomen and Pelvis without IV contrast COMPARISON: 09/06/2011 HISTORY: right flank pain FINDINGS: CHEST: Visible portions of the lung bases are unremarkable. The visible portions of the heart and aorta are unremarkable. LIVER: Normal attenuation. No intrahepatic ductal dilation or mass. Calcified gallstone in the neck of the gallbladder, not significantly changed from previous exam. No significant gallbladder wall thickening or pericholecystic fluid to suggest acute cholecystitis. SPLEEN: Spleen is unremarkable, no splenomegaly. STOMACH/DUODENUM: Stomach and duodenum are unremarkable. PANCREAS: Pancreas is unremarkable. ADRENAL GLANDS: Adrenal glands are unremarkable. KIDNEYS: Atrophic left kidney, unchanged from previous exam. Compensatory hypertrophy of the right kidney. No hydronephrosis. No renal or ureteral calculi identified. COLON/SMALL BOWEL: Abdominal and pelvic bowel loops appear normal. Appendix appears normal. PELVIS: Probable left ovarian cyst measures 4 cm. Consider pelvic ultrasound for further evaluation if clinically indicated. Pelvic contents otherwise unremarkable. MESENTERY AND RETROPERITONEUM: No significant abdominal or pelvic lymphadenopathy or ascites. Aorta and mesenteric vessels are unremarkable. ABDOMINAL WALL: No evidence of hernia. BONES: No pathologic osseus lesions identified. IMPRESSION: 1. Cholelithiasis. 2. Left renal atrophy and compensatory hypertrophy right kidney, unchanged. No renal or ureteral calculi identified. No hydronephrosis. 3. Probable left ovarian cyst. Niurka Torres MD 13-Jan-2017 11:39 [1] IMPRESSION/REPORT/PLAN 1. Pyelonephritis Acute Patients symptoms and lab evaluation are consistent with pyelonephritis. No sign of renal stone or abscess. Renal function is stable. Will treat with levaquin for an extended course. Follow up in two weeks. [place] for pain control over the next few days. Toradol did help but is waning at time of discharge. Ordered: HYDROcodone-acetaminophen, 1 tab(s), PO, q6hr, PRN Pain, x 14 day(s), # 56 tab(s), 0 Refill(s), Acute levoFLOXacin, 750 mg = 1 tab(s), PO, Daily, x 14 day(s), # 14 tab(s), 0 Refill(s), Acute, Pharmacy:[facility] Orders: Return Visit [facility] FOOTNOTES [1]CT Stone Protocol; ROSENDO JIMENA D 01/13/2017 11:19 CDT Electronically Signed By: RIANNA AGRAWAL MD On: 01/13/2017 12:23 PM [facility] Document Id: [id number] documented in this encounter Miscellaneous Notes Miscellaneous - Rianna Agrawal M.D. - 01/13/2017 12:03 PM CDT Ambulatory Patient Summary [address] [id number] Visit Information Name: CHERRY HALL [facility] Number: [id number] Current Date: 01/13/2017 12:03:27 Physicians Attending Provider: RIANNA AGRAWAL MD Primary Care Provider: PCP, CHERRY EDMOND has been given the following list of follow-up instructions, medication list,and patient education materials: Follow-up Instructions Your Medications Here is a list of your medications. It is important to take your medications as directed. Use a pillbox or chart to help remind you to take your medications. Please let your doctor or nurse know if you have problems taking your medications. Medication/Strength How to Take Indications/Special Instructions/Comments/Notes for Patient Medication Changes/Routing etonogestrel (etonogestrel) Implant, once HYDROcodone-acetaminophen ([place] 5 mg-325 mg oral tablet) 1 Tablet(s), Oral, every 6 hours as neededfor Pain x 14 day(s) No more than 4,000mg acetaminophen/24hrs This is a CHANGE Routed to [employer]inter levoFLOXacin (levoFLOXacin 750 mg oral tablet) 1 Tablet(s), Oral, once a day x 14 day(s) Routed to [facility] [address] [facility] [place] [address] Stop Taking the Following Medications: Medication list as of 01-13-17 12:03 Attention: If you have any medications at home that are not on this list, DO NOT take them until youcontact your provider for clarification. Give a copy of your medication list to your primary care provider. Update your medication list any time medications or doses are changed and carry your medication list at all times in case of emergency. Electronically Signed By: RIANNA AGRAWAL MD Signed On:13-JAN-2017 12:03:23 Your Allergies & Intolerances Substance Reaction Symptoms Category Comments No Known Medication Allergies Drug NO KNOWN DRUG ALLERGIES Your Problem List Problem Status Onset Comments Left kidney infection Active 04/14/2003 10/24/10 function 12% date unknown Acne vulgaris Active 02/13/2011 Headache Active 2010 Tobacco use Active 2002 09/03/11 unknown date of dx Pain Back From Preg Active Leak Amniotic Fluid Active Your Upcoming Appointments Date Time Location Provider No Appointments found Attention: Contact your local Clinic if further appointment detail needed. Consider Using Patient Online Services Patient Online Services is a secure online and Mobile application that lets you: ?? View lab and test results ?? View portions of your medical record including clinical notes, immunizations and discharge summaries ?? Request an appointment or medication refill ?? Review your appointment schedule ?? Send secure messages to your care team Its easy to create an account if you dont have one. Go to [email or web address] and click on Create Your Account. Then, follow the directions to complete the online form. Youll be asked for your [facility] number which you can find at the top of this document. Your Goals/Additional instructions: Source: [facility] POWERCHART Document Id: [id number] Miscellaneous - Rianna Agrawal M.D. - 01/13/2017 12:03 PM CDT Ambulatory Discharge Medication List [place] - [address] [place] [id number] Visit Information Name: CHERRY HALL [facility] Number: [id number] Current Date: 01/13/2017 12:03:26 Attending Provider: RIANNA AGRAWAL MD Primary Care Provider: PCP, BAKARI CHERRY HALL has been given the following list of medications: Your Medications It is important to take your medications as directed. Use a pill box or chart to help remind you to take your medications. Please let your doctor or nurse know if you have problems taking your medications. Medication/Strength How to Take Indications/Special Instructions/Comments/Notes for Patient Medication Changes/Routing etonogestrel (etonogestrel) Implant, once HYDROcodone-acetaminophen ([place] 5 mg-325 mg oral tablet) 1 Tablet(s), Oral, every 6 hours as neededfor Pain x 14 day(s) No more than 4,000mg acetaminophen/24hrs This is a CHANGE Routed to [place] levoFLOXacin (levoFLOXacin 750 mg oral tablet) 1 Tablet(s), Oral, once a day x 14 day(s) Routed to [address] [address] Stop Taking the Following Medications: Medication list as of 01-13-17 12:03 Attention: If you have any medications at home that are not on this list, DO NOT take them until youcontact your provider for clarification. Give a copy of your medication list to your primary care provider. Update your medication list any time medications or doses are changed and carry your medication list at all times in case of emergency. Electronically Signed By: RIANNA AGRAWAL MD Signed On:13-JAN-2017 12:03:23 Additional Information: Source: [facility] POWERCHART Document Id: [id number] Miscellaneous - Lexy Mendoza, L.P.N. - 01/13/2017 9:52 AM CDT Health Assessment Health Assessment Entered On: 01/13/2017 9:52 CDT Performed On: 01/13/2017 9:52 CDT by LEXY MENDOZA Health Assessment Complete Health Assessment Complete or Modified : Annual Health Assessment Annual Health Assessment Completed : Yes LEXY MENDOZA 01/13/2017 9:52 CDT Nutrition Nutrition Risk Factors by History Adult : None LEXY MENDOZA 01/13/2017 9:52 CDT Functional Current Daily Living Assistance : None LEXY MENDOZA 01/13/2017 9:52 CDT Dependent Habits Exposure to Tobacco Smoke : Other: Former smoker: quit 03/2014 Smoking Status : Former smoker Tobacco 2A : Yes Tobacco Use/Currently Using : No Tobacco Use/Last 30 Days : No Tobacco Use/Last 12 months : No Alcohol Use : No LEXY MENDOZA 01/13/2017 9:52 CDT Caffeine Use Grid Caffeine Use : None Type : Coffee Frequency : Daily Amount : 1 LEXY MENDOZA 01/13/2017 9:52 CDT Recreational Drug Use Grid Drug Use : None LEXY MENDOZA 01/13/2017 9:52 CDT Psychosocial Domestic Abuse Concerns : None Behavioral Health Screen/Safety Assmt : No Moravian Preference : Unknown LEXY MENDOZA 01/13/2017 9:52 CDT Advance Directive Advanced Directives : No Advance Directive Additional Information : No LEXY MENDOZA 01/13/2017 9:52 CDT Educ Needs Learning Style Preference Adult Grid Patient : None Family : None LEXY MENDOZA 01/13/2017 9:52 CDT Source: [facility] [employer] Document Id: [id number] CDT!36 Miscellaneous - Lexy Mendoza, L.P.N. 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 Entered On: 01/13/2017 9:48 CDT Performed On: 01/13/2017 9:46 CDT by LEXY MENDOZA Actual Weight : 88.4 kg(Converted to: 194 lb 14 oz) Weight Source : Standing scale Dosing Weight Clinic : 88.4 kg Clinic BSA : 2.1 Body Mass Index : 27.59 kg/m2 LEXY MENDOZA - 01/13/2017 9:51 CDT Chief Complaint : Right sided abdominal pain Onset of Symptoms : Early this morning Ambulatory Intake Additional Information : radiates from back to front, nauseated, feels bloated Temperature Core : 37.0 DegC(Converted to: 98.6 DegF) Peripheral Pulse Rate : 76 /min Respiratory Rate : 16 /min Systolic Blood Pressure : 120 mmHg Diastolic Blood Pressure : 70 mmHg NIBP Mean : 87 mmHg Height : 179 cm(Converted to: 5 ft 10 inch(es), 70 inch(es)) LEXY MENDOZA 01/13/2017 9:46 CDT General Info Information Given By : Patient Languages : Mosotho Is Patient Female and 13-50 no hysterectomy : Yes Status : Patient denies Are you ? : No LEXY MENDOZA 01/13/2017 9:46 CDT Subjective Pain Symptoms : Yes LEXY MENDOZA 01/13/2017 9:46 CDT Dependent Habits Exposure to Tobacco Smoke : Other: Former smoker: quit 03/2014 Smoking Status : Former smoker Tobacco 2A : Yes Tobacco Use/Currently Using : No Tobacco Use/Last 30 Days : No Tobacco Use/Last 12 months : No LEXY MENDOZA 01/13/2017 9:46 CDT Caffeine Use Grid Caffeine Use : None Type : Coffee Frequency : Daily Amount : 1 LEXY MENDOZA 01/13/2017 9:46 CDT Recreational Drug Use Grid Drug Use : None LEXY MENDOZA 01/13/2017 9:46 CDT Source: [employer] Document Id: [id number] CDT!41 documented in this encounter Plan of Treatment Not on filedocumented as of this encounter Procedures Procedure Name Priority Date/Time Associated Diagnosis Comme nts AUTOMATED Routine 01/13/2017 10:16 AM Results for this DIFFERENTIAL, B CDT procedure ar e in the results section. CBC WITH Routine 01/13/2017 10:16 AM Results for this DIFFERENTIAL, B CDT procedure ar e in the results section. C-REACTIVE PROTEIN Routine 01/13/2017 10:16 AM Re sults for this (CRP), S/P CDT procedure are i n the results section. BASIC METABOLIC Routine 01/13/2017 10:16 AM Resul ts for this PANEL, S/P CDT procedure are i n the results section. URINALYSIS, Routine 01/13/2017 9:54 AM Results f or this DIPSTICK CDT procedure are i n the results section. documented in this encounter Results (ABNORMAL) Automated Differential (01/13/2017 10:16 AM CDT) Patholo gist Method Time Signature Absolute 10.17 (H) 1.70 - POWERCHART Neutrophils 7.00 109L Lymphocytes 3.31 (H) 0.90 - POWERCHART 2.90 X109L Monocytes 1.39 (H) 0.30 - POWERCHART 0.90 X109L Eosinophils 0.12 0.05 - POWERCHART 0.50 X109L Absolute 0.02 0.00 - POWERCHART Basophil 0.30 X109L Specimen Anatomical Collection Method Collection Time Receive d Time (Source) Location / / Volume Laterality Blood 01/13/2017 10:16 01/13/2017 AM CDT 10:16 AM CDT Rianna Agrawal M.D. LAB BLOOD ADD-ON Performing Organization Address City/State/ZIP Code Phon e Number POWERCHART POWERCHART NA (ABNORMAL) CBC with Differential (01/13/2017 10:16 AM CDT) Analysis Performed At Patho logist Time Signature Leukocytes 15.0 (H) 3.4 - 9.6 POWERCHART X109L Erythrocytes 4.52 3.92 - POWERCHART 5.13 [id number] Hemoglobin 14.7 11.6 - POWERCHART 15.0 GDL Hematocrit 42.9 35.5 - POWERCHART 44.9 MCV 94.9 78.2 - POWERCHART 97.9 FL HX RDW 13.1 12.2 - POWERCHART 16.1 Platelet Count 241 157 - 371 POWERCHART X109L Specimen (Source) Anatomical Collection Method Collection Time Re ceived Time Location / / Volume Laterality Blood 01/13/2017 10:16 AM CDT Rianna Agrawal M.D. LAB BLOOD ADD-ON Performing Organization Address City/State/ZIP Code Phon e Number POWERCHART POWERCHART NA (ABNORMAL) CRP (C-Reactive Protein) (01/13/2017 10:16 AM CDT) P athologist Signature C-Reactive 21.1 (H) <=5.0 MGL POWERCHART Protein (CRP), S Specimen (Source) Anatomical Collection Method Collection Time Re ceived Time Location / / Volume Laterality Blood 01/13/2017 10:16 AM CDT Rianna Agrawal M.D. LAB BLOOD ADD-ON Performing Organization Address City/State/ZIP Code Phon e Number POWERCHART POWERCHART NA BMP (Basic Metabolic Panel) (01/13/2017 10:16 AM CDT) P athologist Signature Sodium, S 138 135 - 145 POWERCHART MMOLL Potassium, S 4.3 3.5 - 5.1 POWERCHART MMOLL Chloride, S 101 98 - 107 POWERCHART MMOLL CO2 Total 23 22 - 29 POWERCHART MMOLL BUN (Blood Urea 10 6 - 21 MGDL POWERCHART Nitrogen), S Creatinine, S 0.66 0.59 - 1.04 POWERCHART MGDL Calcium, Total, 9.2 8.6 - 10.3 POWERCHART S MGDL Anion Gap 14 10 - 20 POWERCHART MMOLL HXeGFR (MDRD) >60 >=60 POWERCHART [id number] eGFR >60 >=60 POWERCHART Black/ [id number] [place] Glucose 93 70 - 139 POWERCHART MGDL Specimen (Source) Anatomical Collection Method Collection Time Re ceived Time Location / / Volume Laterality Blood 01/13/2017 10:16 AM CDT Rianna Agrawal M.D. LAB BLOOD ADD-ON Performing Organization Address City/[facility]/ZIP Code Phon e Number POWERCHART POWERCHART NA (ABNORMAL) Urinalysis no Reflex (01/13/2017 9:54 AM CDT) athologist Signature Clarity Clear Clear POWERCHART HXUr Color Yellow Colorless POWERCHART Specific 1.010 POWERCHART [place], POCT, U Comment: Reference Range Specific [place]: 1.000-1.035 pH, POCT, Urine 6.5 <5.0 POWERCHART Comment: Reference Range pH: 5.0-8.0 Protein, Ur, Dip Negative Negative MGDL POWERCHAR T Glucose Negative Negative MGDL POWERCHART Ketones, QL(U) 15 (A) Negative MGDL POWERCHART HXBILIRUBIN Negative Negative POWERCHART HXBLOOD Trace (A) Negative POWERCHART Leukocyte Esterase Negative Negative POWERCHART HXNITRITE Negative Negative POWERCHART Urobilinogen 0.2 0.2 MGDL POWERCHART Comment: Reference Range Urobilinogen: 0.2-1.0 mg/dL HXUR WBC. Occ-3 None Seen HPF POWERCHART HXUR RBC. Occ-2 None Seen HPF POWERCHART Squamous Epithelial 4-10 (A) None Seen HPF POWERC [place] Specimen (Source) Anatomical Collection Method Collection Time Re ceived Time Location / / Volume Laterality Urine, First 01/13/2017 9:54 AM Voided CDT Rianna Agrawal M.D. LAB URINE ORDERABLES Performing Organization Address City/State/ZIP Code Phon e Number POWERCHART POWERCHART NA documented in this encounter Visit Diagnoses Not on filedocumented in this encounter Care Teams Oceanic Sciences Professor Relationship Specialty Start Date End Date Gabrielle Jara M.D. PCP - General Family Medicine 10/04/[address] [place] [address] documented as of this encounter
--- OUTSIDE RECORDS SUMMARY | 2021-11-21 03:04 | XMS_ITS | Encounter Summary ---
:1990 Author Organization [facility] Address [address] [place] [address] Care Team Providers Name Role Phone Gabrielle Jara M.D. Primary Care Provider Encounter Details Date Type Department Care Team Description 11/07/2014 Hospital Encounter HX [facility] OBSTETRICS Emilie Armendariz M.D. [address] [place] [address] (Wo rk) Social History Tobacco Use Types Packs/Day Years Used Date Smoking Tobacco: Never Assessed Sex Assigned at Date Recorded Not on file documented as of this encounter Last Filed Vital Signs Vital Sign Reading Time Taken Comments Blood Pressure 127/75 11/07/2014 3:36 PM CDT Pulse 81 11/07/2014 3:34 PM CDT Temperature - - Respiratory Rate 16 11/07/2014 3:34 PM CDT Oxygen Saturation - - Inhaled Oxygen Concentration - - Weight 112 kg (245 lb 13 oz) 11/07/2014 3:34 PM CDT Height 179 cm (5' 10.47) 11/07/2014 3:36 PM CDT Body Mass Index 34.8 11/07/2014 3:34 PM CDT documented in this encounter Discharge Summaries Shoshana Weber, RPedroN. - 11/07/2014 4:36 PM CDT Discharge Summary Discharge Summary Entered On: 11/07/2014 16:39 CDT Performed On: 11/07/2014 16:36 CDT by SHOSHANA WEBER RN, DC Information Discharged to : Home independently Mode of Discharge : Ambulatory Discharge Transportation : Private vehicle Date/Time of Discharge : 11/07/2014 16:35 CDT SHOSHANA WEBER RN - 11/07/2014 16:36 CDT Education General Patient Education Powergrid Topics : Importance of follow-up visits, Plan of care, When to call health care provider, Other: SHOSHANA WEBER RN - 11/07/2014 16:36 CDT Source: [facility] POWERCHART Document Id: [id number] CDT!10 Shoshana Weber R.N. - 11/07/2014 4:29 PM CDT Hospital Discharge Instructions [address] [address] Patient Discharge Instructions Name: CHERRY HALL Current Date: 11/07/2014 16:29:13 : 1990 12:00 AM [facility] Number: [id number] Patient Address: [address] [id number] Patient Primary Care Provider: Name: PCPBAKARI Phone: Discharge Diagnosis: [facility] would like to thank you for allowing us to assist you with yourhealthcare needs. The following includes patient education materials and information regarding your injury/illness. Comment: Patient educated regaring warning signs of pretern labor, preeclampsia, fever, rupture of membranes, leaking, decreased movement, vaginal bleeding, persistent nausea and vomiting, signs and symptoms of viral and bacterial infection. CHERRY HALL has been given the following list of follow-up instructions, medication list and patient education materials: Follow-up Instructions Medications Medication/Strength How to Take Indications/Special Instructions/Comments/Notes for Patient Medication Changes/Routing calcium citrate (calcium citrate) 2 Tablet(s), Oral, two times a day multivitamin, ( Multivitamins oral tablet) 1 Tablet(s), Oral, once a day Stop Taking the Following Medications: Medication list as of 11-07-14 16:29 Attention: If you have any medications at home that are not on this list, DO NOT take them until youcontact your provider for clarification. Give a copy of your medication list to your primary care provider. Update your medication list any time medications or doses are changed and carry your medication list at all times in case of emergency. Comment: Continue normal care. Electronically Signed By: Signed On: Your Upcoming Appointments Date Time Location Provider 11/11/2014 13:30 [facility] Ultrasound [facility] US RM 2 11/11/2014 15:15 [facility] OB OP [facility] Place Consider Using Patient Online Services Patient Online [...] if you dont have one. Go to [email or web address] and click on Create Your Account. Then, follow the directions to complete the online form. Youll be asked for your [facility] number which you can find at the top of this document. RAFAEL Acharya NICOLETTE KAY , have received the attached patient education materials/instructions and have verbalized understanding: Patient Signature Date Time Care Provider Signature Date Time Kick Counts Its normal to worry about your babys health. One way you can know your babys doing well is to recordthe babys movements once a day. This is called a kick count. You will usually feel your baby move bythe 20th week of . Remember to take your kick count records to all your appointments with your healthcare provider. How to Count Kicks ?? Choose a time when the baby is active, such as after a meal. ?? Sit comfortably or lie on your side. ?? The first time the baby moves, write down the time. ?? Count each movement until the baby has moved 10 times. This can take from 20 minutes to 2 hours. ?? If the baby hasnt moved 4 times in 1 hour, pat your stomach to wake the baby up. ?? Write down the time you feel the babys 10th movement. ?? Try to do it at the same time each day. When to Call Your Healthcare Provider Call your healthcare provider right away if you notice any of the following: ?? Your baby moves fewer than 10 times in 4 hours while youre doing kick counts. ?? Your baby moves much less often than on the days before. ?? You have not felt your baby move all day. ?? [id number] [facility], [address] [place] [address], [place] [address]. All rights reserved. This information is not intended as a substitute for professional medical care. Always follow your healthcare professional's instructions. Understanding Preeclampsia Preeclampsia is a problem that may occur in . It can lead to health risks for you and your baby. No one knows what causes preeclampsia. But it almost always goes away soon after you give . Your blood pressure will be monitored regularly throughout your to help check for preeclampsia. Signs and Symptoms A common sign of preeclampsia is high blood pressure. Other signs and symptoms include: ?? Edema (swelling) in your face or hands ?? Rapid weight gain--about 1 pound or more in a day ?? Protein in your urine ?? Headache ?? Abdominal pain on your right side ?? Vision problems (flashes or spots) Tests You May Have Your doctor will want to check your blood pressure throughout your . If your blood pressureis high, you may have the following tests: ?? Urine tests to look for protein ?? Blood tests to confirm preeclampsia ?? monitoring to ensure that your baby is healthy Treating Preeclampsia Preeclampsia almost always ends soon after you give . The only cure is delivery. Until then, your doctor can help manage your condition. If your symptoms are mild, you may need bed rest at home. If your symptoms are severe, you will be hospitalized. Hospital treatment includes: ?? Complete bed rest to help control blood pressure ?? Magnesium IV (intravenous) drip during labor to prevent seizures ?? Induced labor or surgical delivery by section to help you have your baby more quickly When to Call Your Doctor Call your doctor or other healthcare provider if swelling, weight gain, or other symptoms come on quickly or are severe. Some cases of preeclampsia are more severe than others. Your signs and symptoms also may change or worsen as you get closer to your due date. Whos At Risk? Preeclampsia can occur in any woman. But if youve had it before, you have a greater chance of it recurring. Also, if you already had high blood pressure before getting , your risk for preeclampsia is higher. Americans, teens, women over 40, and women with two or more babies are also at greater risk. Dangers of Preeclampsia If not treated, preeclampsia can cause problems for you and your baby. The placenta (organ that nourishes your baby) may tear away from the uterine wall. This can lead to distress (the baby is atrisk for health problems). Or, your baby may be born too early or too small. Preeclampsia also can cause these health problems: ?? Kidney failure or other organ damage ?? -360Seizures ?? Stroke Once You Give In most cases, preeclampsia goes away on its own soon after you give . Within days, your blood pressure should decrease. Other signs and symptoms of preeclampsia also will go away soon. ?? [phone] [facility], [address] [place] [address]. All rights reserved. This information is not intended as a substitute for professional medical care. Always follow your healthcare professional's instructions. This document has images extracted. Please consider using [employer] for all your patient education needs. Source: [facility] POWERCHART Document Id: [id number] Shoshana Weber R.N. - 11/07/2014 4:29 PM CDT Hospital Discharge Medication List [address] [address] Discharge Medication List Name: CHERRY HALL Current Date: 11/07/2014 16:29:13 : 1990 12:00 AM [facility] Number: [id number] Patient Address: [address] [id number] Patient Primary Care Provider: Name: PCPBAKARI Phone: Discharge Diagnosis: [facility] in [place] would like to thank you for allowing us to assist you with your healthcare needs. The following includes patient education materials and information regarding yourinjury/illness. Medications Medication/Strength How to Take Indications/Special Instructions/Comments/Notes for Patient Medication Changes/Routing calcium citrate (calcium citrate) 2 Tablet(s), Oral, two times a day multivitamin, ( Multivitamins oral tablet) 1 Tablet(s), Oral, once a day Stop Taking the Following Medications: Medication list as of 11-07-14 16:29 Attention: If you have any medications at home that are not on this list, DO NOT take them until youcontact your provider for clarification. Give a copy of your medication list to your primary care provider. Update your medication list any time medications or doses are changed and carry your medication list at all times in case of emergency. Comment: Electronically Signed By: Signed On: Source: [facility] POWERCHART Document Id: [id number] documented in this encounter Progress Notes Emilie Armendariz M.D. - 11/07/2014 4:37 PM CDT NST/BPP OB visit SUBJECTIVE This patient is at 35+4 weeks GA here for NST due to diagnosis of borederline oligohydramnios. She is having a hard time feeling the baby move in the last few weeks. She received a BPP on 11/04 with normal fluid WILVER of 6.4. She was brought in today to reevaluate fluid volume. She denies GONZALEZ, visual changes, abd pain. She denies loss of fluid. She did have some postcoital bleeding and came in yesterday for evulation. No further bleeding. OBJECTIVE BLOOD PRESSURE Initial BP after arrival 144/89 Repeat: Systolic Blood Pressure: 127 Diastolic Blood Pressure: 75 NST is reactive with baseline rate of 150 bpm. There are at least 2 accelerations greater than 15 beats above the baseline lasting at least 15 seconds over 20 minutes. Moderate variability. No decelerations. BPP 8/10 (-2 fluid. Deepest pocket 2.5 X 1.9cm) LABS TP/Cr= 0.18 plts 313K AST/ALT normal IMPRESSION 1. Oligohydramnios - by deepest pocket criterion. Her WILVER is normal. 2. Isolated elevated BP - no S/S of severe PEC, normal labs. Repeat BP normal. This is new FOB. 3. GBS positive-patient informed PLAN 1. Discussed oligohydramnios. Recommend repeat BPP later this week with growth US to r/o IUGR. Advised if has low fluid may need induction of labor after 37 weeks depending on clinical situation. 2. Discussed preeclampsia. Advised to call if having severe GONZALEZ, visual changes, epigastric pain. 3. Discussed GBS Electronically Signed By: EMILIE ARMENDARIZ MD On: 11/07/2014 04:47 PM Source: [employer] Document Id: [id number] documented in this encounter Nursing Notes Shoshana Weber R.N. - 11/07/2014 3:39 PM CDT Antepartum Testing Antepartum Testing Entered On: 11/07/2014 15:41 CDT Performed On: 11/07/2014 15:39 CDT by SHOSHANA WEBER RN NST, Baby A/Prabhakar Indication for Test : Other: oligohydramnios Heart Rate Baseline : 150 Variability : Moderate Accelerations : 15 x 15 Decelerations : Absent Contractions : Absent Interpretation : Reactive Provider : EMILIE ARMENDARIZ MD, ASHLEY RN - 11/07/2014 15:39 CDT Source: [email or web address] Document Id: [id number] CDT!10 documented in this encounter Miscellaneous Notes Miscellaneous - Emilie Armendariz M.D. - 11/07/2014 4:59 PM CDT patient will be seen on Friday From: EMILIE ARMENDARIZ MD To: BRY BERNARD Arash CARRERA; Sent: 11/07/2014 16:59:36 CDT Subject: patient will be seen on Friday Kayleigh is 35 weeks and with oligo by deepest pocket criteria (2.5 X 1.9cm) with WILVER 6.2. Got BPP on 11/04 for decreased FM. She had an isolated elevated BP today, labs normal. My plan was to repeat BPP later this week with WILVER. I discussed possible IOL if persists beyond 37 weeks. Has appts for US growth with BPP on Friday, seeing you on L &D to follow. Thanks! Source: [facility] [employer] Document Id: [id number] Miscellaneous - Conversion, Historical Provider Ser - 11/07/2014 4:35 PM CDT Coding Summary-Paper Based CODING DATE: 11/10/2014 FINAL [facility] STATUS: * Discharged to Home or Self Care [facility] AD[facility] DX: 658.03 Oligohydramnios, Antepartum Condition or Complication REASON FOR VISIT DX: 658.03 Oligohydramnios, Antepartum Condition or Complication FINAL DX: PRINCIPAL: 658.03 Oligohydramnios, Antepartum Condition or Complication SECONDARY: 648.93 Other Current Conditions Classifiable Elsewhere, Complicating , Childbirth, or the Puerperium, Antepartum Condition or Complication V02.51 Carrier or Suspected Carrier of Group B Streptococcus 655.83 Other Known or Suspected Abnormality, Not Elsewhere Classified, Affecting Management of Mother, Antepartum Condition or Complication PROCEDURES DOCTOR NAME DATE NOTE: The code number assigned matches the documented diagnosis and / or procedure in the patient's chart. However, the narrative phrase printed from the coding software may appear abbreviated, or result in slightly different terminology. Revised Coded By: CATHIE OSEGUERA Revised Date Saved: 11/09/2014 08:48 am Source: [employer] Document Id: [id number] Miscellaneous - Shoshana Weber, RPedroN. - 11/07/2014 4:22 PM CDT Hospital Patient Education The following Patient Education Materials have been given to the patient: Patient Education Materials: ED/Trauma Kick Counts Understanding Preeclampsia ED/Trauma Kick Counts Its normal to worry about your babys health. One way you can know your babys doing well is to recordthe babys movements once a day. This is called a kick count. You will usually feel your baby move bythe 20th week of . Remember to take your kick count records to all your appointments with your healthcare provider. How to Count Kicks ?? Choose a time when the baby is active, such as after a meal. ?? Sit comfortably or lie on your side. ?? The first time the baby moves, write down the time. ?? Count each movement until the baby has moved 10 times. This can take from 20 minutes to 2 hours. ?? If the baby hasnt moved 4 times in 1 hour, pat your stomach to wake the baby up. ?? Write down the time you feel the babys 10th movement. ?? Try to do it at the same time each day. When to Call Your Healthcare Provider Call your healthcare provider right away if you notice any of the following: ?? Your baby moves fewer than 10 times in 4 hours while youre doing kick counts. ?? Your baby moves much less often than on the days before. ?? You have not felt your baby move all day. ?? [id number] [place] [address]. All rights reserved. This information is not intended as a substitute for professional medical care. Always follow your healthcare professional's instructions. Understanding Preeclampsia Preeclampsia is a problem that may occur in . It can lead to health risks for you and your baby. No one knows what causes preeclampsia. But it almost always goes away soon after you give . Your blood pressure will be monitored regularly throughout your to help check for preeclampsia. Signs and Symptoms A common sign of preeclampsia is high blood pressure. Other signs and symptoms include: ?? Edema (swelling) in your face or hands ?? Rapid weight gain-about 1 pound or more in a day ?? Protein in your urine ?? Headache ?? Abdominal pain on your right side ?? Vision problems (flashes or spots) Tests You May Have Your doctor will want to check your blood pressure throughout your . If your blood pressureis high, you may have the following tests: ?? Urine tests to look for protein ?? Blood tests to confirm preeclampsia ?? monitoring to ensure that your baby is healthy Treating Preeclampsia Preeclampsia almost always ends soon after you give . The only cure is delivery. Until then, your doctor can help manage your condition. If your symptoms are mild, you may need bed rest at home. If your symptoms are severe, you will be hospitalized. Hospital treatment includes: ?? Complete bed rest to help control blood pressure ?? Magnesium IV (intravenous) drip during labor to prevent seizures ?? Induced labor or surgical delivery by section to help you have your baby more quickly When to Call Your Doctor Call your doctor or other healthcare provider if swelling, weight gain, or other symptoms come on quickly or are severe. Some cases of preeclampsia are more severe than others. Your signs and symptoms also may change or worsen as you get closer to your due date. Whos At Risk? Preeclampsia can occur in any woman. But if youve had it before, you have a greater chance of it recurring. Also, if you already had high blood pressure before getting , your risk for preeclampsia is higher. Americans, teens, women over 40, and women with two or more babies are also at greater risk. Dangers of Preeclampsia If not treated, preeclampsia can cause problems for you and your baby. The placenta (organ that nourishes your baby) may tear away from the uterine wall. This can lead to distress (the baby is atrisk for health problems). Or, your baby may be born too early or too small. Preeclampsia also can cause these health problems: ?? Kidney failure or other organ damage ?? Seizures ?? Stroke Once You Give In most cases, preeclampsia goes away on its own soon after you give . Within days, your blood pressure should decrease. Other signs and symptoms of preeclampsia also will go away soon. ?? [phone] [facility], [address] [place] [address], [place] [address]. All rights reserved. This information is not intended as a substitute for professional medical care. Always follow your healthcare professional's instructions. This document has images extracted. Please consider using [employer] for all your patient education needs. Source: [facility] POWERCHART Document Id: [id number] Miscellaneous - Shoshana Weber R.N. - 11/07/2014 4:17 PM CDT Heart Monitoring Heart Monitoring Entered On: 11/07/2014 16:18 CDT Performed On: 11/07/2014 16:17 CDT by SHOSHANA WEBER RN FHR, Prabhakar/Baby A Uterine Contraction Monitoring Method : External toco Uterine Contraction Frequency : 0 FHR Monitoring Method : Electronic monitoring FHR Monitoring Frequency : Continuous FHR Baseline : 140 FHR Baseline Description : Within normal limits FHR Provider Present : Yes SHOSHANA WEBER RN - 11/07/2014 16:17 CDT Source: [facility] [employer] Document Id: [id number] CDT!9 documented in this encounter Plan of Treatment Not on filedocumented as of this encounter Procedures Procedure Name Priority Date/Time Associated Comments Diagnosis CBC WITHOUT Routine 11/07/2014 3:56 PM Results f or this DIFFERENTIAL, B CDT procedure ar e in the results section. COMPREHENSIVE Routine 11/07/2014 3:56 PM Results for this METABOLIC PANEL, S/P CDT procedu re are in the results section. HXUR % DYSMORPHIC RBC Routine 11/07/2014 3:50 PM Results for this CDT procedure are i n the results section. PROT/CREAT RATIO URINE Routine 11/07/2014 3:50 PM Results for this CDT procedure are i n the results section. URINALYSIS, MIDSTREAM, Routine 11/07/2014 3:50 PM Results for this WITH CULTURE IF CDT procedure ar e in INDICATED the results section. documented in this encounter Results (ABNORMAL) CBC without Differential (11/07/2014 3:56 PM CDT) Analysis Performed At Patho logist Time Signature Hematocrit 37.4 34.9 - POWERCHART 44.5 Hemoglobin 12.5 12.0 - POWERCHART 15.5 GDL MCV 95.7 82.0 - POWERCHART 98.0 FL Platelet Count 313 150 - 450 POWERCHART X109L Erythrocytes 3.91 3.90 - POWERCHART 5.03 [id number] HX RDW 14.4 11.9 - POWERCHART 15.5 Leukocytes 13.8 (H) 3.5 - 10.5 POWERCHART X109L Specimen (Source) Anatomical Collection Method Collection Time Re ceived Time Location / / Volume Laterality Blood 11/07/2014 3:56 PM CDT Emilie Armendariz M.D. LAB BLOOD ADD-ON Performing Organization Address City/State/ZIP Code Phon e Number POWERCHART (ABNORMAL) CMP (Comprehensive Metabolic Panel) (11/07/2014 3:56 PM CDT) [facility] gist Method Time Signature Chloride, S 102 98 - 107 POWERCHART MMOLL Sodium, S 138 135 - 145 POWERCHART MMOLL Potassium, S 3.9 3.6 - 5.2 POWERCHART MMOLL Anion Gap 14 10 - 20 POWERCHART MMO[place] Alkaline 75 52 - 144 POWERCHART Phosphatase, S UL Alanine 11 7 - 45 UL POWERCHART Amniotransferase, LD Aspartate 13 8 - 43 UL POWERCHART Aminotransferase (AST), S Bilirubin, Total, S 0.1 0.1 - 1.0 POWERCHART MGDL BUN (Blood Urea 10 6 - 21 POWERCHART Nitrogen), S MGDL CO2 Total 23 22 - 29 POWERCHART MMOLL Creatinine, S 0.62 0.60 - POWERCHART 1.10 MGDL Total Protein, S 6.6 6.3 - 7.9 POWERCHART GDL Glucose 139 70 - 139 POWERCHART MGDL Calcium, Total, S 8.8 8.6 - POWERCHART 10.3 MGDL Albumin, S 3.4 (L) 3.5 - 5.0 POWERCHART GDL eGFR Black/ >60 >=60 POWERCHART Burmese [id number] 2 HXeGFR (MDRD) >60 >=60 POWERCHART [id number] 2 Comment: Results are in mL/min/1.73m CKD Stage I: ? GFR > 90 CKD Stage II: ?GFR 60 to 89 CKD Stage III: ? GFR 30 to 59 CKD Stage IV: ? GFR 15 to 29 CKD Stage V: ?GFR < 15 or Dialysi s Specimen (Source) Anatomical Collection Method Collection Time Re ceived Time Location / / Volume Laterality Blood 11/07/2014 3:56 PM CDT Emilie Armendariz M.D. LAB BLOOD ADD-ON Performing Organization Address City/[facility]/ZIP Code Phon e Number POWERCHART HXUR % DYSMORPHIC RBC (11/07/2014 3:50 PM CDT) athologist Signature Dysmorphic RBC <=25 <=25 POWERCHART Specimen Anatomical Collection Method Collection Time Receive d Time (Source) Location / / Volume Laterality Urine, First 11/07/2014 3:50 PM 5 3:50 Voided CDT PM CDT Emilie Armendariz M.D. LAB HISTORICAL ORDERS Performing Organization Address [facility] Phon e Number POWERCHART (ABNORMAL) Urinalysis, Midstream, with culture if indicated (11/07/2014 3:50 PM CDT) [facility] gist Method Time Signature HXUr Color Yellow Colorless POWERCHART Clarity Clear Clear POWERCHART Glucose Negative Negative POWERCHART MGDL Protein, Ur, Negative Negative POWERCHART Dip MGDL HXBILIRUBIN Negative Negative POWERCHART Urobilinogen 0.2 0.2 MGDL POWERCHART pH, POCT, Urine 6.5 <5.0 POWERCHART HXBLOOD Negative Negative POWERCHART Ketones, QL(U) Negative Negative POWERCHART MGDL HXNITRITE Negative Negative POWERCHART Leukocyte Trace (A) Negative POWERCHART Esterase Specific 1.010 POWERCHART [place], POCT, U HXUR WBC. Occ-3 None Seen POWERCHART HPF HXUR RBC. 3-10 (A) None Seen POWERCHART HPF Squamous 4-10 (A) None Seen POWERCHART Epithelial HPF Mucus Present (A) None Seen POWERCHART HXUR Bacteria, Present (A) None Seen POWERCHART Specimen (Source) Anatomical Collection Method Collection Time Re ceived Time Location / / Volume Laterality Urine, First 11/07/2014 3:50 PM Voided CDT Emilie Armendariz M.D. LAB URINE ORDERABLES Performing Organization Address [facility] Phon e Number POWERCHART (ABNORMAL) Prot/Creat Ratio Urine (11/07/2014 3:50 PM CDT) athologist Signature Creatinine, 49.9 MGDL POWERCHART Random, U Comment: No established reference values for random urine samples. Protein, U 9 MGDL POWERCHART Protein/Creatinine Ratio 0.18 (H) 0.00 - 0.15 [facility] POWERCHART Specimen (Source) Anatomical Collection Method Collection Time Re ceived Time Location / / Volume Laterality Urine 11/07/2014 3:50 PM CDT Emilie Armendariz M.D. LAB URINE ORDERABLES Performing Organization Address City/State/ZIP Code Phon e Number POWERCHART documented in this encounter Visit Diagnoses Not on filedocumented in this encounter Care Teams Ticket Clerk Relationship Specialty Start Date End Date Gabrielle Jara M.D. PCP - General Family Medicine 10/04/[address] [place] [phone] documented as of this encounter
--- OUTSIDE RECORDS SUMMARY | 2021-11-21 03:04 | XMS_ITS | Encounter Summary ---
:1990 Author Organization [facility] Address [address] [place] [address] Care Team Providers Name Role Phone Gabrielle Jara M.D. Primary Care Provider Reason for Visit Reason Comments Med Refill Encounter Details Date Type Department Care Team Description 11/07/2017 Refill Department of Obstetrics and Gonzalez, Kristine Cortez APRN, Med Refill Gynecology in [address] [place] [phone] [place] [address] [phone] Social History Tobacco Use Types Packs/Day Years Used Date Smoking Tobacco: Some Days Sex Assigned at Date Recorded Not on file documented as of this encounter Miscellaneous Notes Telephone Encounter - Gabrielle Sandhu R.N. - 11/07/2017 10:08 AM CDT Family santiago in [place] requesting a refill on Marlissa 0.15-30 mg-mcg, take one tablet by mouthdaily Not on current medication list-reconcilled medication list YAMILE 02/11/17 with ordering provider documented in this encounter Plan of Treatment Not on filedocumented as of this encounter Visit Diagnoses Not on filedocumented in this encounter Care Teams Solutions Manager Relationship Specialty Start Date End Date Gabrielle Jara M.D. PCP - General Family Medicine 10/04/[address] [place] [phone] documented as of this encounter
--- OUTSIDE RECORDS SUMMARY | 2021-11-21 03:04 | XMS_ITS | Encounter Summary ---
:1990 Author Organization [facility] Address [address] [place] [address] Care Team Providers Name Role Phone Gabrielle Jara M.D. Primary Care Provider Encounter Details Date Type Department Care Team Description 12/07/2014 Hospital Encounter HX [facility] Barbie Herrera M.D. [address] [place] [address] (Wo rk) Social History Tobacco [...] - - Height 179 cm (5' 10.47) 12/07/2014 8:31 AM CDT Body Mass Index - - documented in this encounter Miscellaneous Notes Miscellaneous - Conversion, Historical Provider Ser - 12/07/2014 11:59 PM CDT Coding Summary-Paper Based CODING DATE: 12/12/2014 FINAL [facility] STATUS: * [facility] to Home or Self Care [facility]: V89.01 Suspected Problem with Amniotic [...] terminology. Coded By: ANDREW BALLESTEROS Date Saved: 12/12/2014 09:59 am [facility] Document Id: [id number] documented in this encounter Plan of Treatment Not on filedocumented as of this encounter Visit Diagnoses Not on filedocumented in this encounter Care Teams Crossbar Switch Adjuster Relationship Specialty Start Date End Date Gabrielle Jara M.D. PCP - General Family Medicine 10/04/13 [address] [place] [address] documented as of this encounter
--- OUTSIDE RECORDS SUMMARY | 2021-11-21 03:04 | XMS_ITS | Encounter Summary ---
:1990 Author Organization [facility] Address [address] [place] [address] Care Team Providers Name Role Phone Gabrielle Jara M.D. Primary Care Provider Reason for Visit Reason Comments Annual Exam Encounter Details Date Type Department Care Team Description 03/03/2018 Office Visit Department of Kristine Gonzalez Gynecologicelinor sharp Obstetrics and STATE COMPTROLLER, WHNP-BC Examination Normal Gynecology in [address] (Primary Dx) [address] [address] [place], [place] [phone] (Work) [phone] Social History Tobacco Use Types Packs/Day Years Used Date Smoking Tobacco: Former Smokeless Tobacco: Never Alcohol Use Standard Drinks/Week Comments Yes 0 (1 standard drink = 0.6 oz pure alcoho l) Sex Assigned at Date Recorded Not on file documented as of this encounter Last Filed Vital Signs Vital Sign Reading Time Taken Comments Blood Pressure 130/84 03/03/2018 10:17 AM FINANCE ANALYST Pulse 80 03/03/2018 10:17 AM FINANCE ANALYST Temperature - - Respiratory Rate 20 03/03/2018 10:17 AM FINANCE ANALYST Oxygen Saturation - - Inhaled Oxygen Concentration - - Weight 88.8 kg (195 lb 12.3 oz) 03/03/2018 10:17 AM FINANCE ANALYST Height 179 cm (5' 10.47) 03/03/2018 10:17 AM FINANCE ANALYST Body Mass Index 27.71 03/03/2018 10:17 AM FINANCE ANALYST documented in this encounter Progress Notes Kristine Gonzalez, TREVER, C.N.P. - 03/03/2018 10:15 AM CST SUBJECTIVE CHIEF COMPLAINT/REASON FOR VISIT Chief Complaint Patient presents with ??? Annual Exam HISTORY OF PRESENT ILLNESS: This patient is a 27 y.o. that presents for an annual exam. She has the following issues shewould like to go over: 1. 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 She has never had KIERSTEN 2-3 on colposcopy or LEEP. Menses are regular every month, denies intermenstrual bleeding. She is using OCPs for contraception. Patient Active Problem List Diagnosis (none) - all problems resolved or deleted Past Medical History: Diagnosis Date ??? Infection Kidney 01/18/2011 function 12% date unknown Past Surgical History: Procedure Laterality Date ??? TONSILLECTOMY N/A 1997 Tonsillectomy ??? TYMPANOTOMY N/A 2007 Myringotomy Current Outpatient Prescriptions Medication Sig Dispense Refill ??? MARLISSA 0.15-0.03 mg per tablet Take 1 tablet by mouth daily. 84 tablet 4 No current facility-administered medications for this visit. No Known Allergies Social History Social History ??? Marital status: Spouse name: N/A ??? Number of children: 2 ??? Years of education: N/A Occupational History ??? Not on file. Social History Main Topics ??? Smoking status: Former Smoker ??? Smokeless tobacco: Never Used ??? Alcohol use Yes ??? Drug use: No ??? Sexual activity: Not on file Other Topics Concern ??? Not on file Social History Narrative ??? No narrative on file Family History Problem Relation Age of Onset ??? Kidney cancer Grandfather ??? Prostate cancer Grandfather ??? Urolithiasis Uncle REVIEW OF SYSTEMS General: No fevers, sweats. EENT: No blurred vision, double vision, sinus problems, difficulty swallowing,mouth. sores, diminished hearing, ringing in ears, enlarged glands. Pulmonary: No short of breath, cough, wheezing. Cardiac: No chest pain, chest pressure, rapid beating, irregular beating, dependent edema, pain in calves, shortness of breath with exertion. Breasts: No nipple discharge, breast lumps, breast tenderness, no other changes. GI: No heartburn, nausea, vomiting, constipation, diarrhea, blood in BMs, and no change in BMs. Reproductive: See above, no vaginal discharge or pelvic pain. : No burning/pain with urination, no urinary incontinence. Musculoskeletal: no joint or muscle problems. Skin: No skin rashes, skin sores, change in moles. Neuro: No significant headaches, numbness or weakness. Endocrine: No excessive thirst, no excessive bruising. Psych: No depression or anxiety. HEALTH CARE MAINTENANCE: regular exercise, TDAP up-to-date, influenza decline OBJECTIVE BP 130/84 Pulse 80 Resp 20 Ht 179 cm Wt 88.8 kg LMP 02/25/2018 ? No BMI 27.71 kg/m?? PHYSICAL EXAMINATION General: Patient is in no distress. HEENT: Normocephalic. Neck: No nodes, no thyromegaly. Heart: Regular rate and rhythm. No murmurs, gallops or rubs noted. Lungs: Clear to auscultation bilaterally. No expiratory wheeze. No accessary muscles of respiration noted. Breasts: Soft breast tissue without predominant mass or nodularity. No nipple discharge. No axillaryor supraclavicular adenopathy. Abdomen: Nontender to palpation. No hepato-splenomegaly. No mass. Pelvis: Normal external genitalia. BUS normal. Urethra normal. Bladder non tender, not enlarged. Vagina no abnormal discharge. No lesions. Cervix appears normal, Pap smear is not taken No cervical motion tenderness. Bimanual exam uterus not enlarged. Adnexa no masses, ovaries not enlarged. Anus normal. Extremities: No neurovascular compromise. No cyanosis, clubbing or edema. No edema, non tender. Skin: scattered benign nevi. ASSESSMENT / PLAN IMPRESSION/REPORT/PLAN: #1 Gynecological Examination Normal Normal exam No contraindication to continue use of OCPs. Prescription was previously renewed for 1 year. Austin fabian with this plan. NCE ANALYST documented in this encounter Plan of Treatment Not on filedocumented as of this encounter Visit Diagnoses Diagnosis Gynecological Examination Normal - Prima ry documented in this encounter Care Teams Teacher Of The Handicapped Relationship Specialty Start Date End Date Gabrielle Jara M.D. PCP - General Family Medicine 10/04/13 [address] [place] [address] documented as of this encounter
--- OUTSIDE RECORDS SUMMARY | 2021-11-21 03:04 | XMS_ITS | Encounter Summary ---
:1990 Author Organization [facility] Address [address] [place] [address] Care Team Providers Name Role Phone Gabrielle Jara M.D. Primary Care Provider Encounter Details Date Type Department Care Team Description 12/07/2014 Hospital Encounter H[facility] Arnulfo Ledesma M.D. [address] [place], [place] [phone] (Wo rk) Social History Tobacco Use Types Packs/Day Years Used Date Smoking Tobacco: Never Assessed Sex Assigned at Date Recorded Not on file documented as of this encounter Last Filed Vital Signs Vital Sign Reading Time Taken Comments Blood Pressure 120/72 12/07/2014 8:57 AM CDT Pulse - - Temperature - - Respiratory Rate - - Oxygen Saturation - - Inhaled Oxygen Concentration - - Weight 115 kg (253 lb 1.4 oz) 12/07/2014 8:57 AM CDT Height 179 cm (5' 10.47) 12/07/2014 8:57 AM CDT Body Mass Index 35.83 12/07/2014 8:57 AM CDT documented in this encounter Miscellaneous Notes Miscellaneous - Emilie Armendariz M.D. - 12/07/2014 9:48 AM CDT Ambulatory Discharge Medication List [facility] [address] [place], [place] [phone] Visit Information Name: CHERRY HALL [facility] Number: [id number] Visit Date: 12/07/2014 09:48:38 Attending Provider: EMILIE ARMENDARIZ MD Primary Care Provider: PCP, ELSEWHERE CHERRY HALL has been given the following [...] the Following Medications: Medication list as of 12-07-14 09:48 Attention: If you have any medications at home that are not on this list, DO NOT take them until youcontact your provider for clarification. Give a copy of your medication list to your primary care provider. Update your medication list any time medications or doses are changed and carry your medication list at all times in case of emergency. Electronically Signed By: EMILIE ARMENDARIZ MD Signed On:07-DEC-2014 09:48:36 Additional Information: Source: [facility] POWERCHART Document Id: [id number] Miscellaneous - Emilie Armendariz M.D. - 12/07/2014 9:48 AM CDT Ambulatory Patient Summary [facility] [address] [place], [place] [phone] Visit Information Name: CHERRY HALL [facility] Number: [id number] Current Date: 12/07/2014 09:48:39 Physicians Attending Provider: EMILIE ARMENDARIZ MD Primary Care Provider: PCP, ELSEWHERE CHERRY HALL has been given the following [...] the Following Medications: Medication list as of 12-07-14 09:48 Attention: If you have any medications at home that are not on this list, DO NOT take them until youcontact your provider for clarification. Give a copy of your medication list to your primary care provider. Update your medication list any time medications or doses are changed and carry your medication list at all times in case of emergency. Electronically Signed By: EMILIE ARMENDARIZ MD Signed On:07-DEC-2014 09:48:36 Your Allergies & Intolerances Substance Reaction Symptoms Category Comments No Known Medication Allergies Drug NO KNOWN DRUG ALLERGIES Your Problem List Problem Status Onset Comments Left kidney infection Active 04/14/2003 10/24/10 function 12% date unknown Acne vulgaris Active 02/13/2011 Headache Active 2010 Tobacco use Active 2002 09/03/11 unknown date of dx Active 03/03/2014 Pain Back From Preg Active Leak Amniotic [...] if you dont have one. Go to [email or web address] and click on Create Your Account. Then, follow the directions to complete the online form. Youll be asked for your [facility] number which you can find at the top of this document. Your Goals/Additional instructions: Source: [facility] POWERCHART Document Id: [id number] Miscellaneous - Emilie Armendariz M.D. - 12/07/2014 9:30 AM CDT From: EMILIE ARMENDARIZ MD To: VINICIUS BROOKE MD; Sent: 12/07/2014 09:30:13 CDT IOl scheduled 12/15 for 41+0 weeks GA, advised to call in am as CD also scheduled that day, mark need to come in at noon. Thanks Source: [facility] POWERCHART Document Id: [id number] Electronically signed by Conversion, [facility] [employer] [id number] at 09/09/2016 2:29 AM CDT Miscellaneous - Ezequiel Black LPedroPPderoN. - 12/07/2014 8:57 AM CDT Adult Site Lead Intake/History Adult Site Lead Intake/History Entered On: 12/07/2014 8:58 CDT Performed On: 12/07/2014 8:57 CDT by EZEQUIEL BLACK LPN Intake Chief Complaint : ob check LMP Date : 03/03/2014 Systolic Blood Pressure : 120 mmHg Diastolic Blood Pressure : 72 mmHg NIBP Mean : 88 mmHg Height : 179 cm(Converted to: 5 ft 10 inch(es), 70 inch(es)) Actual Weight : 114.8 kg(Converted to: 253 lb 1 oz) Dosing Weight Clinic : 114.8 kg Clinic BSA : 2.39 Body Mass Index : 35.83 kg/m2 EZEQUIEL BLACK LPN - 12/07/2014 8:57 CDT General Info Information Given By : Patient Languages : Mohawk Is Patient Female and 13-50 no hysterectomy : No EZEQUIEL BLACK LPN - 12/07/2014 8:57 CDT Subjective Pain Symptoms : No EZEQUIEL BLACK LPN - 12/07/2014 8:57 CDT Dependent Habits Tobacco Use/Currently Using : No Exposure to Tobacco Smoke : Other: Former smoker: quit 03/2014 Smoking Status : Former smoker EZEQUIEL BLACK LPN - 12/07/2014 8:57 CDT Tobacco Use Grid Type : Cigarettes EZEQUIEL BLACK LPN - 12/07/2014 8:57 CDT Caffeine Use Grid Caffeine Use : None Type : Coffee Frequency : Daily Amount : 1 EZEQUIEL BLACK LPN - 12/07/2014 8:57 CDT Recreational Drug Use Grid Drug Use : None EZEQUIEL BLACK LPN - 12/07/2014 8:57 CDT Source: [facility] [employer] Document Id: [id number] CDT!34 documented in this encounter Plan of Treatment Not on filedocumented as of this encounter Visit Diagnoses Not on filedocumented in this encounter Care Teams Accounts Payable Professional Relationship Specialty Start Date End Date Gabrielle Jara M.D. PCP - General Family Medicine 10/04/13 [address] [place] [address] documented as of this encounter
--- OUTSIDE RECORDS SUMMARY | 2021-11-21 03:04 | XMS_ITS | Encounter Summary ---
:1990 Author Organization [facility] Address [address] [place] [address] Care Team Providers Name Role Phone Gabrielle Jara M.D. Primary Care Provider Encounter Details Date Type Department Care Team Description 11/30/2014 Hospital Encounter HX [facility] Arnulfo Ledesma M.D. [address] [place], [place] [phone] (Wo rk) Social History Tobacco Use Types Packs/Day Years Used Date Smoking Tobacco: Never Assessed Sex Assigned at Date Recorded Not on file documented as of this encounter Last Filed Vital Signs Vital Sign Reading Time Taken Comments Blood Pressure 112/62 11/30/2014 4:11 PM CDT Pulse - - Temperature - - Respiratory Rate - - Oxygen Saturation - - Inhaled Oxygen Concentration - - Weight 115 kg (253 lb 4.9 oz) 11/30/2014 4:11 PM CDT Height 179 cm (5' 10.47) 11/30/2014 4:11 PM CDT Body Mass Index 35.86 11/30/2014 4:11 PM CDT documented in this encounter Miscellaneous Notes Miscellaneous - Emilie Armendariz M.D. - 11/30/2014 4:29 PM CDT Ambulatory Discharge Medication List [facility] [address] [place], [place] [phone] Visit Information Name: CHERRY HALL [facility] Number: [id number] Visit Date: 11/30/2014 16:29:40 Attending Provider: EMILIE ARMENDARIZ MD Primary Care [...] the Following Medications: Medication list as of 11-30-14 16:29 Attention: If you have any medications [...] Electronically Signed By: EMILIE ARMENDARIZ MD Signed On:30-NOV-2014 16:29:37 Additional Information: Source: [facility] POWERCHART Document Id: [id number] Miscellaneous - Emilie Armendariz M.D. - 11/30/2014 4:29 PM CDT Ambulatory Patient Summary [facility] [address] [place], [place] [phone] Visit Information Name: CHERRY HALL [facility] Number: [id number] Current Date: 11/30/2014 16:29:41 Physicians Attending Provider: EMILIE ARMENDARIZ MD Primary [...] the Following Medications: Medication list as of 11-30-14 16:29 Attention: If you have any medications [...] Electronically Signed By: EMILIE ARMENDARIZ MD Signed On:30-NOV-2014 16:29:37 Your Allergies & Intolerances Substance Reaction Symptoms Category Comments No Known Medication Allergies Drug NO KNOWN DRUG ALLERGIES Your Problem List Problem Status Onset Comments Left kidney infection Active 04/14/2003 10/24/10 function 12% date unknown Acne vulgaris Active 02/13/2011 Headache Active 2010 Tobacco use Active 2002 09/03/11 unknown date of dx Active 03/03/2014 Pain Back From Preg Active Decreased Fetus Movement Affecting Preg Management Active Leak Amniotic Fluid Active Oligohydramnios Antepartum Active Your Upcoming Appointments Date Time Location [...] if you dont have one. Go to [email or web address] and click on Create Your Account. Then, follow the directions to complete the online form. Youll be asked for your [facility] number which you can find at the top of this document. Your Goals/Additional instructions: Source: [facility] POWERCHART Document Id: [id number] Miscellaneous - Ezequiel Black L.P.NPedro - 11/30/2014 4:11 PM CDT Adult Plate Painter Apprentice Intake/History Adult Plate Painter Apprentice Intake/History Entered On: 11/30/2014 16:12 CDT Performed On: 11/30/2014 16:11 CDT by EZEQUIEL BLACK LPN Intake Chief Complaint : ob check Systolic Blood Pressure : 112 mmHg Diastolic Blood Pressure : 62 mmHg NIBP Mean : 79 mmHg Height : 179 cm(Converted to: 5 ft 10 inch(es), 70 inch(es)) Actual Weight : 114.9 kg(Converted to: 253 lb 5 oz) Dosing Weight Clinic : 114.9 kg Clinic BSA : 2.39 Body Mass Index : 35.86 kg/m2 EZEQUIEL BLACK LPN - 11/30/2014 16:11 CDT General Info Information Given By : Patient Languages : Panamanian Is Patient Female and 13-50 no hysterectomy : No EZEQUIEL BLACK LPN - 11/30/2014 16:11 CDT Subjective Pain Symptoms : No EZEQUIEL BLACK LPN - 11/30/2014 16:11 CDT Dependent Habits Tobacco Use/Currently Using : No Exposure to Tobacco Smoke : Other: Former smoker: quit 03/2014 Smoking Status : Former smoker EZEQUIEL BLACK LPN - 11/30/2014 16:11 CDT Tobacco Use Grid Type : Cigarettes EZEQUIEL BLACK LPN - 11/30/2014 16:11 CDT Caffeine Use Grid Caffeine Use : None Type : Coffee Frequency : Daily Amount : 1 EZEQUIEL BLACK LPN - 11/30/2014 16:11 CDT Recreational Drug Use Grid Drug Use : None EZEQUIEL BLACK LPN - 11/30/2014 16:11 CDT Source: [facility] POWERCHART Document Id: [id number] CDT!33 documented in this encounter Plan of Treatment Not on filedocumented as of this encounter Visit Diagnoses Not on filedocumented in this encounter Care Teams Boarding Specialist Relationship Specialty Start Date End Date Gabrielle Jara M.D. PCP - General Family Medicine 10/04/13 [address] [place] [address] documented as of this encounter
--- OUTSIDE RECORDS SUMMARY | 2021-11-21 03:04 | XMS_ITS | Encounter Summary ---
:1990 Author Organization [facility] Address [address] [place] [address] Care Team Providers Name Role Phone Gabrielle Jara M.D. Primary Care Provider Encounter Details Date Type Department Care Team Description 12/10/2014 - Hospital Encounter HX [facility] Candie Wu 12/13/2014 ABDULKADIR Rascon M.D. [address] [place] [address] Social History Tobacco Use Types Packs/Day Years Used Date Smoking Tobacco: Never Assessed Sex Assigned at Date Recorded Not on file documented as of this encounter Last Filed Vital Signs Vital Sign Reading Time Taken Comments Blood Pressure 138/71 12/13/2014 10:00 AM CDT Pulse 90 12/13/2014 10:00 AM CDT Temperature - - Respiratory Rate 16 12/13/2014 10:00 AM CDT Oxygen Saturation - - Inhaled Oxygen Concentration - - Weight - - Height 179 cm (5' 10.47) 12/13/2014 10:00 AM CDT Body Mass Index - - documented in this encounter Discharge Summaries Nusrat Gómez R.N. - 12/13/2014 1:00 PM CDT Discharge Summary Discharge Summary Entered On: 12/13/2014 14:23 CDT Performed On: 12/13/2014 13:00 CDT by NUSRAT GÓMEZ RN, DC Information Discharged to : Home independently Current Home Treatments : None Home Equipment : None Professional Skilled Services : None Special Services and Community Resources : None Mode of Discharge : Ambulatory Discharge Transportation : Private vehicle Accompanied By : Nurse, Family Date/Time of Discharge : 12/13/2014 13:00 CDT NUSRAT GÓMEZ RN - 12/13/2014 14:22 CDT Education General Patient Education Powergrid Topics : Discharge instructions/Medication list, When to call health care provider Individuals Taught : Patient Barriers to Learning : None evident Teaching Method : Explanation, Printed materials NUSRAT GÓMEZ RN - 12/13/2014 14:22 CDT Source: [facility] POWERCHART Document Id: [id number] Nusrat Gómez R.N. - 12/13/2014 11:49 AM CDT Hospital Discharge Instructions [address] [address] Patient Discharge Instructions Name: RAFAELCHERRY SHULTZ MEENA Current Date: 12/13/2014 11:49:02 : 1990 12:00 AM [facility] Number: [id number] Patient Address: [address] [place] [phone] Patient Primary Care Provider: Name: PCPBAKARI Phone: Discharge Diagnosis: [facility] would like to thank you for allowing us to assist you with yourhealthcare needs. The following includes patient education materials and information regarding your injury/illness. Comment: RAFAEL, CHERRY MEENA has been given the following list of follow-up instructions, medication list and patient education materials: Follow-up Instructions With: Address: When: CECIL GONZALEZ [address] [place] [id number] Business (1) 01/17/2015 9:45 AM Comments: 6 week PP Discharge Instruction General Activity Limitations: Other (Special Instructions) Special Instructions: No tampons and no intercourse for 6 weeks. Call if bleeding greater than 1 pad/hour for 3 hrs, increased pain, signs of breast infection, depression, difficulty with urination. Call if severe headache, visual changes, upper abdominal pain. Medications Medication/Strength How to Take Indications/Special Instructions/Comments/Notes for Patient Medication Changes/Routing calcium citrate (calcium citrate) 2 Tablet(s), Oral, two times a day docusate (docusate sodium 100 mg oral capsule) 1 cap, Oral, two times a day New Routed to [address] [address] ibuprofen (ibuprofen 600 mg oral tablet) 1 Tablet(s), Oral, every 6 hours as needed for Pain New Routed to [address] [id number] multivitamin, ( Multivitamins oral tablet) 1 Tablet(s), Oral, once a day Stop Taking the Following Medications: Medication list as of 12-13-14 11:49 Attention: If you have any medications at home that are not on this list, DO NOT take them until youcontact your provider for clarification. Give a copy of your medication list to your primary care provider. Update your medication list any time medications or doses are changed and carry your medication list at all times in case of emergency. Comment: Electronically Signed By: CECIL GONZALEZ NP Signed On:13-DEC-2014 08:50:30 Your Upcoming Appointments Date Time Location Provider 01/17/2015 09:45 [facility] PROJECT INTERN Cecil Gonzalez NP Consider Using Patient Online Services Patient Online [...] if you dont have one. Go to [email or web address] and click on Create Your Account. Then, follow the directions to complete the online form. Youll be asked for your [facility] number which you can find at the top of this document. RAFAEL Acharya NICOLETTE KAY , have received the attached patient education materials/instructions and have verbalized understanding: Patient Signature Date Time Care Provider Signature Date Time After a Vaginal After having a baby, your body may be very tired. It can take time to recover from a vaginal delivery. You may stay in the hospital or center from 1 to 4 days. In some cases, you may be able to go home the same day. Right After the Delivery Your temperature and blood pressure will be taken until they are stable. A nurse or other healthcareprovider will observe you as you rest. You may have afterbirth pains. These are cramps caused by theuterus shrinking. Sanitary pads are used to absorb the discharge of the uterine lining. To ensure that you arent bleeding too much, the pad will be checked. And the firmness of your uterus will be checked. To do this, a nurse will gently push down on your abdomen. If you had anesthesia, youll be watched closely until you can feel and move your toes. If you have perineal pain (pain between the vagina and anus), an ice pack can help. Reading Care While still in the hospital or center, youll learn how to hold and feed your baby. Youll also be given tips on care, bathing your baby, and instruction. If youre not planning to breastfeed, discuss your options with your health care provider. Preparing to Go Home You may be anxious to go home as soon as possible. Before you and your baby go home, a healthcare provider will check to be sure you are healthy enough to take care of your baby and yourself. Youinre ready to go home when: ?? You can walk to the bathroom without help. ?? You can eat solid food and swallow pills (if needed). ?? You have no sign of infection or other health problems, including fever. Before leaving the hospital or center, youll be given written instructions for home self-care after vaginal delivery. Be sure to follow these instructions carefully. If you have questions or concerns, talk about them now. If You Had Stitches You may have received stitches in the skin near your vagina. The stitches might have closed an episiotomy (an incision that enlarges the opening of the vagina). Or you may have needed stitches to repair torn skin. Either way, your stitches should dissolve within weeks. Until then, you can help reduce discomfort, aid healing, and reduce your risk of infection by keeping the stitches clean. These tips can help: ?? Gently wipe from front to back after you urinate or have a bowel movement. ?? After wiping, spray warm water on the area. Or you can have a sitz bath. This means sitting in a tub with a few inches of water in it. Then pat the area dry or use a hairdryer on a cool setting. ?? Do not use soap or any solution except water on the area. ?? You can take a shower unless told not to. ?? Change sanitary pads at least every 2-[address] ?? [address] cold or heat packs on the area as directed by your doctors or nurses. Keep a thin towel between the pack and your skin. ?? Sit on firm seats so the stitches pull less. Follow-Up Schedule a follow-up exam with your health care provider for about 6 weeks after delivery.During this exam, your uterus and vaginal area will be checked. Contact your health care provider ifyou think you or your baby are having any problems. Call Your Healthcare Provider Right Away If You Have: A fever of 100.4?F (38.0?C) or higher Bleeding that requires a new sanitary pad after an hour, or large blood clots Redness, discharge, or incision pain worse than you had in the hospital Burning, pain, red streaks, or lumpy areas in your breasts Cracks, blisters, or blood on your nipples Burning or pain when you urinate Nausea or vomiting Dizziness or fainting Feelings of extreme sadness or anxiety, or a feeling that you dont want to be with your baby Abdominal pain that isnt relieved with medication Vaginal discharge that has a bad odor No bowel movement for 5 days Painful urination, orinability to control urination Redness, warmth, or pain in the lower leg Chest pain ?? [id number] Patrice Dejesus, [address] [place] [address], [place] [address]. All rights reserved. This information is not intended as a substitute for professional medical care. Always follow your healthcare professional's instructions. This document has images extracted. Please consider using [email or web address] for all your patient education needs. Source: [facility] POWERCHART Document Id: [id number] Nusrat Gómez R.N. - 12/13/2014 11:49 AM CDT Hospital Discharge Medication List [address] [address] Discharge Medication List Name: CHERRY ALCANTARA Current Date: 12/13/2014 11:49:00 : 1990 12:00 AM [facility] Number: [id number] Patient Address: [address] [place] [phone] Patient Primary Care Provider: Name: PCP, BAKARI Phone: Discharge Diagnosis: [facility] [place] would like to thank you for allowing us to assist you with your healthcare needs. The following includes patient education materials and information regarding yourinjury/illness. Medications Medication/Strength How to Take Indications/Special Instructions/Comments/Notes for Patient Medication Changes/Routing calcium citrate (calcium citrate) 2 Tablet(s), Oral, two times a day docusate (docusate sodium 100 mg oral capsule) 1 cap, Oral, two times a day New Routed to [address] [id number] ibuprofen (ibuprofen 600 mg oral tablet) 1 Tablet(s), Oral, every 6 hours as needed for Pain New Routed to [address] [address] multivitamin, ( Multivitamins oral tablet) 1 Tablet(s), Oral, once a day Stop Taking the Following Medications: Medication list as of 12-13-14 11:49 Attention: If you have any medications at home that are not on this list, DO NOT take them until youcontact your provider for clarification. Give a copy of your medication list to your primary care provider. Update your medication list any time medications or doses are changed and carry your medication list at all times in case of emergency. Comment: Electronically Signed By: CECIL GONZALEZ TUBING TESTER Signed On:13-DEC-2014 08:50:30 Source: [facility] POWERCHART Document Id: [id number] Cecil Gonzalez R.N. - 12/13/2014 8:51 AM CDT PPD#2, discharge OB DISCHARGE SUMMARY Admission Date: 12/10/2014 Discharge Date: 12/13/2014 PROCEDURE(S): DISCHARGE TO: Home MEDICATIONS: Motrin, colace, PNV Patient's prescription was Faxed to pharmacy [facility] ADMITTING DIAGNOSIS: labor DISCHARGE DIAGNOSIS: same and DIET: Regular diet HOSPITAL COURSE: Stage I: Patient is a 24 yo at 40+4 weeks who was admitted in early labor yesterday afternoon. course complicated by oligohydramnios which resolved spontaneously. She had epidural-the first epidural was ineffective so a second one was placed which provided good analgesia, GBS was positive and she received several doses of penicillin, no IV narcotics, she underwent augmentation with pitocin. AROM with clear fluid. Cat 1 surveillance through first stage. She was completely dilated at 2334 and started pushing at 2355. Stage II: Pushed for 7 min to deliver a 7#5oz girl (Asha) at 0102, Apgars 8/9 in the LOP position. No difficulty with delivery of shoulders. Stage III: Placenta delivered intact at 0110 via simple expression. Uterus firm at U and hemostatic with pitocin and massage. She had bilateral first degree periurethral lacerations on inspection whichwere not repaired. EBL 100ml. Mom and baby doing well. period she recovered will, meeting all milestones. Pain is controlled with oral medications. Tolerating regular diet. Ambulating. Voiding. Vital signs in normal range. We have reviewed precautions. DISCHARGE EXAM: VITAL SIGNS Temperature Core: 37.1 Apical Heart Rate: 90 Peripheral Pulse Rate: 86 Respiratory Rate: 18 SpO2: 98 BLOOD PRESSURE Systolic Blood Pressure: 131 Diastolic Blood Pressure: 84 MEASUREMENTS Height: 179 Gen: No apparent distress Uterus: non tender at U-1, firm Candy Attendant: minimal bleeding Extr: warm no edema, non tender in groin and popliteal fossa LABS: WBC: 12.8 High 12/12/14 RBC: 3.29 Low 12/12/14 Hgb: 10.5 Low 12/12/14 Hct: 32.0 Low 12/12/14 Platelet: 256 12/12/14 CONDITION ON DISCHARGE: Good LEVEL OF ACTIVITY: Nothing per vagina for 6 weeks APPOINTMENTS: 6 weeks check with nurse practitioner CONTRACEPTION: Nexplanon BLOOD TYPE: A+ RUBELLA: Immune TDAP given: 09-20-2014 REFERRALS: none OTHER ORDERS/COMMENTS: No driving while taking narcotic pain medication. Call if bleeding greater than 1 pad an hour, difficulty with urination, increased pain, fever greater than 101, symptoms of depression, severe headache, epigastric pain or visual changes or any other concerns. DISCHARGE SUMMARY DICTATED?: See Hospital Course information above Time spent in discharging patient - Less than 30 minutes. Electronically Signed By: CECIL GONZALEZ NP On: 12/13/2014 08:54 AM Source: [facility] Document Id: [id number] documented in this encounter Progress Notes Vinicius Peter M.D. - 12/12/2014 10:43 PM CDT Nurse Notification Notified by SIMON Page of elevated blood pressure and abdominal pain. S: Patient denies ibrahim, blurry vision, ruq pain. Reports uterine tenderness without fever. . O: BP systolic 152/70 ABD: No epigastric discomfort. +uterine tenderness A: GHTN P: 1. Repeat cbc, cmp continue to monitor closely 2. Uterine discomfort likely secondary to cramping with breast feeding Electronically Signed By: VINICIUS PETER MD On: 12/12/2014 10:48 PM Source: [facility] Document Id: [id number] Beth Patricia C.N.P., R.N. - 12/12/2014 7:47 AM CDT PPD #1 SUBJECTIVE: No complaints, lochia decreasing, vulvar pain not worsening, not dizzy, no difficulty voiding. Breast feeding. OBJECTIVE: VITAL SIGNS Temperature Core: 36.8 Apical Heart Rate: 90 Peripheral Pulse Rate: 78 Respiratory Rate: 16 SpO2: 98 BLOOD PRESSURE Systolic Blood Pressure: 133 Diastolic Blood Pressure: 68 MEASUREMENTS Height: 179 general - NAD LS clear and equal bilaterally Heart: RRR uterus at U-3, firm, small area of tenderness noted fundus: remainder of exam was normal extremities- non tender, trace lower extremity edema WBC: 17.8 High 12/10/14 RBC: 4.09 12/10/14 Hgb: 10.4 Low 12/11/14 Hct: 38.2 12/10/14 Platelet: 320 12/10/14 ASSESSMENT: PPD # 1 - Doing well PLAN: Nexplanon Discharge to home tomorrow. Electronically Signed By: BETH PATRICIA NP On: 12/12/2014 07:49 AM Source: [facility] Document Id: [id number] Candie Armendariz M.D. - 12/10/2014 9:38 PM CDT labor note SUBJECTIVE Is feeling contraction pain over lower abdomen, severe. Has had a IBRAHIM since her epidural was place, no IBRAHIM prior to that. Currently 06/21 for pain No visual changes, epigastric pain OBJECTIVE BLOOD PRESSURE Systolic Blood Pressure: 135 Diastolic Blood Pressure: 81 few BPs > 140/90, none in severe range. Pitocin at 2 EFM - 120 baseline, moderate variability, no decels, + accelerations - catagory 1 tracing [place] - unable to capture Cervix - 7/78%/0. AROM-clear fluid IUPC placed--contractions Q 6 min ASSESSMENT Active labor-poor Poor pain control. Elevated BP GBS positive s/p 2 doses PCN PLAN TP/Cr, AST/ALT Anesthesia notified re: poor pain control Cont PCN Cont pitocin until adequate labor Electronically Signed By: CANDIE ARMENDARIZ MD On: 12/10/2014 09:45 PM Source: [facility] POWERCHART Document Id: [id number] documented in this encounter H&P Notes Candie Armendariz M.D. - 12/10/2014 4:04 PM CDT OB admission H&P CHIEF COMPLAINT labor HISTORY OF PRESENT ILLNESS: at 40w2d complaining of contractions every 3-6 min . Baby is active, no vaginal bleeding, no loss of fluid. PROBLEM LIST 1. GBS positive 2. Had oligohydramnios (deepest pocket < 2X2 on one ultrasound). This resolved. She never had an WILVER < 5, most recent WILVER last week was 10.8 on 12/07 3. PPH with first , did not receive transfusion. 4. First baby had hip dysplasia LABS T&S A+ Debbi screen negative Rubella immune HBsAg negative HIV negative Syphilis negative GC/CT neg/neg UC negative GCT 123 GBS positive POB HISTORY 09/2009 , had PPH MEDICATIONS calcium citrate: 2 tab(s),PO,2xDay multivitamin, : 1 tab(s),PO,Daily ALLERGIES No Known Medication Allergies SYSTEMS REVIEW GENERAL: negative EENT: negative PULMONARY: no short of breath, no cough, no wheezing, no sputum, no hemoptysis CARDIAC: negative BREASTS: negative GI: no heartburn, no nausea, no vomiting, no constipation, no diarrhea, no abdominal pain REPRODUCTIVE: as above : no dysuria or urgency/frequency MUSCULOSKELETAL: no joint or muscle problems SKIN: no skin rashes or pruritis NEURO: no significant headaches, visual changes ENDOCRINE: negative PSYCH: no depression or anxiety SOCIAL HISTORY Date Time: 12/10/2014 13:43 Tobacco: Smoking Status: Never smoker Exposure: Other: Former smoker: quit 03/2014 Alcohol: Use: No Recreational Drugs: Use: None Type: No Results Found FAMILY HISTORY Grandfather: [place] - Renal cancer Uncle: Kidney stone Grandfather: [place] - Cancer of prostate VITAL SIGNS Temperature Core: 37.1 Apical Heart Rate: 90 Respiratory Rate: 18 BLOOD PRESSURE Systolic Blood Pressure: 135 Diastolic Blood Pressure: 81 MEASUREMENTS Height: 179 PHYSICAL EXAMINATION GENERAL: Patient is in min distress. NECK: No adenopathy, no thyromegaly LUNGS: Clear to auscultation CV: RRR without murmur ABDOMEN: Non-tender to palpation, gravid EFW: 8.5 pounds CERVIX: 4-5/50%/+1 per RN exam EXTREMITIES: non tender, trace edema EFM: Baseline 130 with moderate variability, + accelerations, no decelerations- catagory 1 TOCO: Contractions Q4-5 Impression/Report/Plan at 40w2d in early labor GBS positive Cat 1 tracing h/o PPH h/p previous infant with hip dysplasia h/o oligohydramnios this , resolved will decline screening -admit -start PCN -expect managment of labor -discussed plan of care if PPH, PPH meds in room Electronically Signed By: CANDIE ARMENDARIZ MD On: 12/10/2014 05:47 PM Modified by and Electronically Signed by: CANDIE ARMENDARIZ MD On: 12/10/2014 05:47 PM Source: [facility] POWERCHART Document Id: [id number] Michaela Lieberman R.N. - 12/10/2014 1:47 PM CDT OB Admission History/Assessment Document Has Been Updated OB Admission History/Assessment Entered On: 12/10/2014 13:57 CDT Performed On: 12/10/2014 13:47 CDT by MICHAELA LIEBERMAN RN General Info Care : Yes Records Available : Yes MICHAELA LIEBERMAN RN - 12/10/2014 14:01 CDT Preferred Name : Cherry Admitted From : Non-Health Care Facility Point of Origin Mode of Arrival : Ambulatory Accompanied By : Spouse Information Given By : Patient Languages : Spanish Last Food Intake Date & Time : 12/10/2014 10:00 CDT Last Fluid Intake : 12/10/2014 13:47 CDT Is Patient Female and 13-50 no hysterectomy : No MICHAELA LIEBERMAN RN - 12/10/2014 13:47 CDT Valuables/Belongings Room Orientation/Facility Policy Reviewed : Yes Home Medication Disposition : None brought in with patient MICHAELA LIEBERMAN RN - 12/10/2014 13:47 CDT Allergy (As Of: 12/10/2014 14:02:59 CDT) Allergies (Active) No Known Medication Allergies Comments: Comment 1: NO KNOWN DRUG ALLERGIES ; Created By: Contributor_system, [facility]_HX_ALRG_SYS; Reaction Status: Active ; Category: Drug ; Substance: No Known Medication Allergies ; Type: Unknown ; Updated By: Contributor_system, [facility]_HX_ALRG_SYS; Reviewed Date: 12/10/2014 13:47 CDT Problem List/Diagnoses (As Of: 12/10/2014 14:02:59 CDT) Problems(Active) Acne vulgaris (ICD-9-CM :706.1 ) Name of Problem: Acne vulgaris ; Onset Date: 02/13/2011 ; Recorder:DERRICK NIETO III, MD; Confirmation: Confirmed ; Classification: Medical ; Code: 706.1 ; LastUpdated: 02/13/2011 12:49 CDT ; Life Cycle Status: Active ; Responsible Provider: DERRICK NIETO III, MD; Vocabulary: ICD-9-CM Headache (ICD-9-CM :784.0 ) Name of Problem: Headache ; Onset Date: 2010 ; Recorder: JES GARCIA NP; Confirmation: Confirmed ; Classification: Medical ; Code: 784.0 ; Contributor System: [employer] ; Last Updated: 06/11/2011 12:05 MAGAZINE WORKER ; Life Cycle Date: 06/11/2011 ; Life Cycle Status: Active ; Responsible Provider: SOFIE GARCIA NP; Vocabulary: ICD-9-CM Leak Amniotic Fluid (ICD-9-CM :646.83 ) Name of Problem: Leak Amniotic Fluid ; Recorder: VINICIUS PETER MD; Confirmation: Confirmed ; Classification: Medical ; Code: 646.83 ; Contributor System: [employer] ; Last Updated: 11/04/2014 13:09 CDT ; Life Cycle Date: 11/04/2014 ; Life Cycle Status: Active; Vocabulary: ICD-9-CM Left kidney infection (SNOMED CT :73300169 ) Name of Problem: Left kidney infection ; Onset Date: 2003 ; Recorder: SKIP SCHWARTZ LPN; Confirmation: Confirmed ; Classification: Medical ; Code: 37421768 ; Contributor System: [employer] ; Last Updated: 01/18/2011 10:10 CDT ; Life Cycle Date: 10/24/2010 ; Life Cycle Status: Active ; Responsible Provider: SKIP SCHWARTZ LPN; Vocabulary: SNOMED CT; Comments: 10/24/2010 15:18 - SKIP SCHWARTZ LPN function 12% date unknown Pain Back From Preg (ICD-9-CM :646.83 ) Name of Problem: Pain Back From Preg ; Recorder: VINICIUS PETER MD; Confirmation: Confirmed ; Classification: Medical ; Code: 646.83 ; Contributor System: [employer] ; Last Updated: 11/04/2014 10:26 CDT ; Life Cycle Date: 11/04/2014 ; Life Cycle Status: Active; Vocabulary: ICD-9-CM (SNOMED CT :444321781 ) Name of Problem: ; Onset Date: 03/03/2014 ; Recorder: MISTY ABEBE LPN; Confirmation: Confirmed ; Classification: Medical ; Code: 853829579 ; Last Updated: 05/03/2014 15:57 MAGAZINE WORKER ; Life Cycle Status: Active ; Responsible Provider: MISTY ABEBE LPN; Vocabulary : SNOMED CT Tobacco use (ICD-9-CM :305.1 ) Name of Problem: Tobacco use ; Onset Date: 2002 ; Recorder: CECIL WYNN MD; Confirmation: Confirmed ; Classification: Medical ; Code: 305.1 ; Contributor System: [employer] ; Last Updated: 12/31/2011 8:58 CDT ; Life Cycle Date: 06/20/2011 ; Life Cycle Status: Active ; Responsible Provider: CECIL WYNN MD; Vocabulary: ICD-9-CM ; Comments: 09/03/2011 9:47 - MICHELLE VELASCO LPN unknown date of dx Current Risk Factors, Antepartum Current Preg : None MICHAELA LIEBERMAN RN - 12/10/2014 14:01 CDT Expected Date of Confinement : 12/08/2014 CDT Total Pregnancies History : 3 Full Term Pregnancies History : 1 Spontaneous Abortions Hx : 1 Living Children History : 1 : 3 Para Full Term : 1 Para Abortions : 1 Para : 1 Mom's Group B Streptococcus Status : GBS positive Mom's Hepatitis B Status : HBSAG negative Mom's Rubella Status : Rubella immune MICHAELA LIEBERMAN RN - 12/10/2014 13:47 CDT Plan/Requests Education : Yes Labor Preferences : Ambulate during labor, Change position during labor at will Anesthesia/Pain Medication During Labor : Standard epidural Feeding : , Formula Baby For Adoption : No MICHAELA LIEBERMAN RN - 12/10/2014 13:47 CDT Past History History (As Of: 12/10/2014 14:03:00 CDT) - 3, Para Fullterm - 1, Para - , Abortions - , Para Living - 1 Delivery/Outcome Date: 10/10/2009 Gestation Age At : 39 weeks 2 days ; Full Gestation ; Delivery Method: Vaginal ; Gender: Female ; Weight: 8lb 13oz / 3997gm ; Outcome: Live ; Child Name: Alicia Delivery/Outcome Date: 11/27/2010 Delivery Method: Unknown ; Outcome: Weight History Height : 179 cm(Converted to: 5 ft 10 inch(es)) MICHAELA LIEBERMAN RN - 12/10/2014 13:47 CDT ID Screen Drug Resistant Organism : No MICHAELA LIEBERMAN RN - 12/10/2014 13:47 CDT Nutrition Have you recently lost weight without trying? : No Decreased Appetite Nutrition : No Tube Feedings or Parenteral Nutrition : No MST Score : 0 Home Diet : Regular MICHAELA LIEBERMAN RN - 12/10/2014 13:47 CDT Home Environment Current Daily Living Assistance : None Home Equipment : None Sensory Deficits : None Mobility Assistance Prior to Admission : Independent Current Home Treatments : None Professional Skilled Services : None Special Services and Community Resources : Adult Protective Services MICHAELA LIEBERMAN RN - 12/10/2014 13:47 CDT Dependent Habits Alcohol Use : No MICHAELA LIEBERMAN RN - 12/10/2014 13:47 CDT Caffeine Use Grid Caffeine Use : None Type : Coffee Frequency : Daily Amount : 1 MICHAELA LIEBERMAN RN - 12/10/2014 13:47 CDT Recreational Drug Use Grid Drug Use : None MICHAELA LIEBERMAN RN 12/10/2014 13:47 CDT Psychosocial Support Person's Name : 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 Relationship to Pt : Other Support People : Family Pain Symptoms : Yes Domestic Abuse Concerns : None Concerns About Family Members at Home : No MICHAELA LIEBERMAN RN 12/10/2014 13:47 CDT Emotional Support Available : Yes MICHAELA LIEBERMAN RN 12/10/2014 14:01 CDT Chronic/Terminal Illness Freq Visits : No Behavioral Health Screen/Safety Assmt : No Coping : Effective Buddhist Preference : Unknown MICHAELA LIEBERMAN RN - 12/10/2014 13:47 CDT Pain Pain Assessment Grid Pain 1 Pain 2 Location : Abdomen Intensity : 7 Quality : Cramping MICHAELA LIEBERMAN RN - 12/10/2014 13:47 CDT MICHAELA LIEBERMAN RN 12/10/2014 13:47 CDT Healthy Family Screen Chronic Mental Illness Diagnosis : No Parental Readiness : No Alcohol or Other Drug Abuse : No Financial/Legal : No Social Isolation : No Marital or Family Problems : No Medical Compliance : No Cognition : No Home Durable Medical Equipment Needs : No Community Resources/Services : No MICHAELA LIEBERMAN RN - 12/10/2014 13:47 CDT Advance Directive Advanced Directives : No Advance Directive Additional Information : No MICHAELA LIEBERMAN RN 12/10/2014 13:47 CDT Educ Needs Learning Style Preference Adult Grid Patient : Printed materials, Verbal explanation Family : Printed materials, Verbal explanation MICHAELA LIEBERMAN RN - 12/10/2014 13:47 CDT General Level of Consciousness : Alert Orientation : Appropriate for age Affect/Behavior : Calm, Cooperative,Appropriate Distress : None Skin Color : Normal for ethnicity Skin Description : Normal Skin Temperature : Warm MICHAELA LIEBERMAN RN - 12/10/2014 13:47 CDT Cardiovascular Heart Rhythm : Regular Edema Assessment : No MICHAELA LIEBERMAN RN 12/10/2014 13:47 CDT Respiratory Respiratory Pattern : Regular All Lobes Breath Sounds : Clear Respirations : Unlabored Cough : None Sputum Amount : None MICHAELA LIEBERMAN RN 12/10/2014 13:47 CDT Gastrointestinal Abdomen Palpation : Soft Passing Flatus : Yes MICHAELA LIEBERMAN RN 12/10/2014 13:47 CDT Genitourinary Patient Stated Symptoms : None MICHAELA LIEBERMAN RN 12/10/2014 13:47 CDT Musculoskeletal Musculoskeletal Patient Stated Symptoms : None Activity Tolerance : Without distress MICHAELA LIEBERMAN RN - 12/10/2014 13:47 CDT Integumentary Integumentary Patient Stated Symptoms : None Skin Turgor : Elastic Skin Integrity : Intact Mucous Membrane Color : Cisco Mucous Membrane Description : Moist Skin Color : Normal for ethnicity Skin Description : Normal Skin Temperature : Warm MICHAELA LIEBERMAN RN 12/10/2014 13:47 CDT Hendrich II Fall Risk Confusion/Disorientation Hendrich : No Depression Fall Risk Hendrich : No Altered Elimination Fall Risk Hendrich : No Dizziness/Vertigo Fall Risk Hendrich : No Gender, Male Fall Risk Hendrich : No Prescribed Antiepileptics Hendrich : No Prescribed Benzodiazepines Hendrich : No Rising From Chair Fall Risk Hendrich : Able to rise in a single movement, no loss of balance with steps Fall Risk Score Hendrich II : 0 MICHAELA LIEBERMAN RN - 12/10/2014 13:47 CDT Safe Patient Handling Safe Pt Handling Independent : Yes - No equipment needed Safe Pt Handling Equipment Rec : No Equipment Needed MICHAELA LIEBERMAN RN - 12/10/2014 13:47 CDT Saran Sensory Perception Saran : No impairment Moisture Saran : Rarely moist Activity Saran : Walks frequently Mobility Saran : No limitations Nutrition Saran : Excellent Friction and Shear Saran : No apparent problem Saran Score : 23 MICHAELA LIEBERMAN RN - 12/10/2014 13:47 CDT Source: [facility] Document Id: [id number] CDT!8 documented in this encounter Procedure Notes Alexis Kevin R.N. - 12/11/2014 3:30 AM CDT Intraspinal/Peripheral Nerve Catheter Care Intraspinal/Peripheral Nerve Catheter Care Entered On: 12/11/2014 3:53 CDT Performed On: 12/11/2014 3:30 CDT by ALEXIS KEVIN RN Vital Signs Height : 179 cm(Converted to: 5 ft 10 inch(es)) ALEXIS KEVIN RN - 12/11/2014 3:52 CDT Care Intraspinal Activity Type : Removal Dressing/Activity : Band-Aid Intraspinal Care Tx Response : Expected ALEXIS KEVIN RN - 12/11/2014 3:52 CDT Bates Bates Agitation Sedation Scale (RASS) : Alert and calm RASS Score : 0 ALEXIS KEVIN RN - 12/11/2014 3:52 CDT Source: [facility] Document Id: [id number] CDT!10 Candie Armendariz M.D. - 12/11/2014 1:19 AM CDT OB Delivery Note- DELIVERY SUMMARY Stage I: Patient is a 24 yo at 40+4 weeks who was admitted in early labor yesterday afternoon. course complicated by oligohydramnios which resolved spontaneously. She had epidural-the first epidural was ineffective so a second one was placed which provided good analgesia, GBS was positive and she received several doses of penicillin, no IV narcotics, she underwent augmentation with pitocin. AROM with clear fluid. Cat 1 surveillance through first stage. She was completely dilated at 2334 and started pushing at 2355. Stage II: Pushed for 7 min to deliver a 7#5oz girl (Asha) at 0102, Apgars 8/9 in the LOP position. No difficulty with delivery of shoulders. Stage III: Placenta delivered intact at 0110 via simple expression. Uterus firm at U and hemostatic with pitocin and massage. She had bilateral first degree periurethral lacerations on inspection whichwere not repaired. EBL 100ml. Mom and baby doing well. Electronically Signed By: CANDIE ARMENDARIZ MD On: 12/11/2014 01:24 AM Source: [facility] Document Id: [id number] Shayy Teran R.N. - 12/10/2014 9:00 PM CDT Urinary Catheter Insertion/Discontinuation Urinary Catheter Insertion/Discontinuation Entered On: 12/10/2014 21:00 CDT Performed On: 12/10/2014 21:00 CDT by SHAYY TERAN RN Urinary Catheter Urinary Catheter Activity Type : Insert Urinary Catheter Insertion Site : Urethral Urinary Catheter Size : 16 Macedonian Urinary Catheter Type : Indwelling/Continuous Date/Time Catheter Insertion : 12/10/2014 21:00 CDT Urinary Catheter Balloon Inflation : 10 mL sterile water Urinary Catheter Secured : Leg strap Urinary Catheter Drainage System : Dependent drainage bag Urinary Catheter Procedure Response : Expected Urinary Catheter Procedure Tolerance : Good SHAYY TERAN RN - 12/10/2014 21:00 CDT Source: [facility] Document Id: [id number] CDT!12 Michaela Lieberman R.N. - 12/10/2014 3:40 PM CDT Peripheral IV Peripheral IV Entered On: 12/10/2014 15:48 CDT Performed On: 12/10/2014 15:40 CDT by MICHAELA LIEBERMAN RN Peripheral IV Peripheral IV Assess/Intervention Grid Peripheral IV #1 IV Activity : Start Number of Attempts : 1 Date of Insertion : 12/10/2014 CDT IV Site : Hand Catheter Size : 18 Site Condition : No complications MICHAELA LIEBERMAN RN - 12/10/2014 15:47 CDT Source: [facility] Document Id: [id number] CDT!10 documented in this encounter Nursing Notes Nusrat Gómez R.N. - 12/13/2014 10:00 AM CDT Post Assessment * Post Assessment * Entered On: 12/13/2014 14:21 CDT Performed On: 12/13/2014 10:00 CDT by NUSRAT GÓMEZ RN Post Partum Assessment * Fundus condition : Firm Fundus position : Midline Excessive Lochia : Scant NUSRAT GÓMEZ RN - 12/13/2014 14:01 CDT Respiratory Respiratory Patient Stated Symptoms : None Respiratory Pattern : Regular All Lobes Breath Sounds : Clear NUSRAT GÓMEZ RN - 12/13/2014 14:01 CDT Cardiovascular CV Patient Stated Symptoms : None Antiembolism Device Yes/No : No NUSRAT GÓMEZ RN - 12/13/2014 14:01 CDT Psycho/Emotional Pain Symptoms : No NUSRAT GÓMEZ RN - 12/13/2014 14:01 CDT Gastrointestinal GI Patient Stated Symptoms : None Passing Flatus : Yes NUSRAT GÓMEZ RN - 12/13/2014 14:01 CDT Nutrition Appetite : Excellent Feeding Ability : Complete independence NUSRAT GÓMEZ RN - 12/13/2014 14:01 CDT Genitourinary Patient Stated Symptoms : None NUSRAT GÓMEZ RN - 12/13/2014 14:01 CDT Integumentary Integumentary Patient Stated Symptoms : None Skin Integrity : Intact NUSRAT GÓMEZ RN - 12/13/2014 14:01 CDT Source: [facility] Document Id: [id number] CDT!25 Kaylee Rivas R.N. - 12/13/2014 4:31 AM CDT PRN Response PRN Response Entered On: 12/13/2014 6:59 CDT Performed On: 12/13/2014 4:31 CDT by KAYLEE RIVAS RN PRN Medication Effectiveness Evaluation PRN Medication Effective : Yes KAYLEE RIVAS RN - 12/13/2014 6:59 CDT Source: [facility] Document Id: [id number] CDT!3 Kaylee Rivas R.N. - 12/13/2014 4:31 AM CDT PRN Response PRN Response Entered On: 12/13/2014 6:59 CDT Performed On: 12/13/2014 4:31 CDT by KAYLEE RIVAS RN PRN Medication Effectiveness Evaluation PRN Medication Effective : Yes KAYLEE RIVAS RN - 12/13/2014 6:59 CDT Source: [facility] Document Id: [id number] CDT!3 Kaylee Rivas R.N. - 12/12/2014 10:14 PM CDT PRN Response PRN Response Entered On: 12/12/2014 22:31 CDT Performed On: 12/12/2014 22:14 CDT by KAYLEE RIVAS RN PRN Medication Effectiveness Evaluation PRN Medication Effective : Yes KAYLEE RIVAS RN - 12/12/2014 22:31 CDT Source: [facility] Document Id: [id number] CDT!3 Kaylee Rivas R.N. - 12/12/2014 10:14 PM CDT PRN Response PRN Response Entered On: 12/12/2014 22:31 CDT Performed On: 12/12/2014 22:14 CDT by KAYLEE RIVAS RN PRN Medication Effectiveness Evaluation PRN Medication Effective : Yes Post Medication Pain Assessment : 3 KAYLEE RIVAS RN - 12/12/2014 22:31 CDT Source: [facility] Document Id: [id number] CDT!4 Kaylee Rivas R.N. - 12/12/2014 9:15 PM CDT Post Assessment * Post Assessment * Entered On: 12/12/2014 22:21 CDT Performed On: 12/12/2014 21:15 CDT by KAYLEE RIVAS RN Post Partum Assessment * Breast Condition : Filling, Soft Nipples : Normal, Tender Nipple tenderness location : Bilateral Breast Secretions : Milk Infant Feeding Method : Pumping Fundus : Even Fundus condition : Firm Fundus position : Midline Post Lochia : Lochia Rubra Excessive Lochia : Small KAYLEE RIVAS RN - 12/12/2014 22:17 CDT Extremities Extremities : Edema Clonus : Not present KAYLEE RIVAS [facility] - 12/12/2014 22:17 CDT Lower Extremities Reflex Grid Left Knee : 1+ Right Knee : 1+ KAYLEE RIVAS [facility] - 12/12/2014 22:17 CDT Respiratory Respiratory Patient Stated Symptoms : None Respirations : Unlabored Distress : None Respiratory Pattern : Regular All Lobes Breath Sounds : Clear Cough : None Sputum Amount : None Suction : None Airway : Patent KAYLEE RIVAS [facility] - 12/12/2014 22:17 CDT Cardiovascular CV Patient Stated Symptoms : None Heart Rhythm : Regular Heart Sounds ICU : S1S2 Antiembolism Device Yes/No : No Nail Bed Color : Cisco Capillary Refill : Less than 2 seconds Edema Assessment : Yes KAYLEE RIVAS [facility] - 12/12/2014 22:17 CDT Radial Pulse, Left : 2+ Normal Radial Pulse, Right : 2+ Normal Dorsalis Pedis Pulse, Left : 2+ Normal Dorsalis Pedis Pulse, Right : 2+ Normal KAYLEE RIVAS [facility] - 12/12/2014 22:17 CDT Skin Color : Normal for ethnicity Skin Description : Dry Skin Temperature : Warm Activity Tolerance : Without distress KAYLEE RIVAS [facility] - 12/12/2014 22:17 CDT Edema Details Edema Detailed Grid Pretibial Edema Ankle Edema Pedal Edema Bilateral : 1+ trace/2mm, Pitting 1+ trace/2mm, Pitting 1+ trace/2mm, Pitting KAYLEE RIVAS [facility] - 12/12/2014 22:17 CDT EVELYNKAYLEE [facility] - 12/12/2014 22:17 [facility] - 12/12/2014 22:17 CDT Neurological Neuro Patient Stated Symptoms : None Orientation : Oriented x 3 Level of Consciousness : Alert Gait : Steady Swallowing Difficulty/Aspiration Risk : None KAYLEE RIVAS [facility] - 12/12/2014 22:17 CDT Mandy Coma Eye Opening Response [place] : Spontaneously Best Verbal Response Mandy : Oriented Best Motor Response [place] : Obeys simple commands Mandy Coma Score : 15 KAYLEE RIVAS [facility] - 12/12/2014 22:17 CDT Psycho/Emotional Affect/Behavior : Calm Pain Symptoms : Yes KAYLEE RIVAS [facility] - 12/12/2014 22:17 CDT Coping Grid Identifies effective strategies : Yes Uses effective strategies : Yes Reports increase in psychological comfort : Yes Indicates sense of control : Yes Stressors perceived within control : Yes Stable mood with appropriate affect : Yes Behaviors indicate use of coping mechanism : Yes Family supportive and involved in care : Yes Values/Beliefs incorporated appropriately : Yes EVELYNKAYLEE [facility] - 12/12/2014 22:17 CDT Safety Grid Vision, Hearing, Mobility Adequate to Meet Safety Needs : No KAYLEE RIVAS [facility] - 12/12/2014 22:17 CDT Pain Scale Pain Scale Verbal 0-10 : Open EVELYN KAYLEE [facility] - 12/12/2014 22:17 CDT Pain Pain Assessment Grid Pain 1 Location : Abdomen Laterality : Other: central Time Pattern : Acute Quality : Throbbing Aggravating Factors : Palpation Alleviating Factors : Immobilization Interventions : Medications EVELYNKAYLEE JE[facility] - 12/12/2014 22:17 CDT Gastrointestinal GI Patient Stated Symptoms : None Abdomen Description : Rounded Abdomen Palpation : Soft, Tender Bowel Sounds All Quadrants : Present Passing Flatus : Yes KAYLEE RIVAS [facility] - 12/12/2014 22:17 CDT Nutrition Appetite : Good Eating Difficulties : None Feeding Ability : Complete independence KAYLEE RIVAS [facility] - 12/12/2014 22:17 CDT Genitourinary Patient Stated Symptoms : None Urinary Elimination : Voiding, no difficulties Urine Color : Yellow EVELYNKAYLEE [facility] - 12/12/2014 22:17 CDT Integumentary Integumentary Patient Stated Symptoms : None Skin Turgor : Elastic Skin Integrity : Intact Mucous Membrane Color : Cisco Mucous Membrane Description : Moist Skin Color : Normal for ethnicity Skin Description : Dry Skin Temperature : Warm KAYLEE RIVAS [facility] - 12/12/2014 22:17 CDT Saran Sensory Perception Saran : No impairment Moisture Saran : Rarely moist Activity Saran : Walks frequently Mobility Saran : No limitations Nutrition Saran : Excellent Friction and Shear Saran : No apparent problem Saran Score : 23 KAYLEE RIVAS [facility] - 12/12/2014 22:17 CDT Musculoskeletal Musculoskeletal Patient Stated Symptoms : None Activity Tolerance : Without distress KAYLEE RIVAS [facility] - 12/12/2014 22:17 CDT Musculoskeletal Strength Grid Left Upper Extremity Right Upper Extremity Left Lower Extremity Right Lower Extremity Strength : Strong to gravity and resistance Strong to gravity and resistance Strong to gravity and resistance Strong to gravity and resistance KAYLEE RIVAS RN - 12/12/2014 22:17 CDT KAYLEE RIVAS RN - 12/12/2014 22:17 CDTFKAYLEE DAMICO RN - 12/12/2014 22:17 CDT KAYLEE RIVAS RN - 12/12/2014 22:17 CDT [facility] II Fall Risk Confusion/Disorientation Hendrich : No Depression Fall Risk Hendrich : No Altered Elimination Fall Risk Hendrich : No Dizziness/Vertigo Fall Risk Hendrich : No Gender, Male Fall Risk Hendrich : No Prescribed Antiepileptics Hendrich : No Prescribed Benzodiazepines Hendrich : No Rising From Chair Fall Risk Hendrich : Able to rise in a single movement, no loss of balance with steps Fall Risk Score Hendrich II : 0 KAYLEE RIVAS RN - 12/12/2014 22:17 CDT Education Antepartum Education Grid Education Topics : , resources, , positioning, , pumping, Burping, Colostrum, Medication dosage, route, scheduling, Medication generic/brand names, purpose, action, Medication preadministration procedures, Medication precautions, side effects, food/drug interaction, Medication, special administration/storage, Reading behavior, Nipple management, Normal , Pain management, Plan of care, Safety, crib, Safety, fall, Security, Individuals Taught : Patient Barriers to Learning : None evident Teaching Method : Explanation Teaching Evaluation : Verbalizes understanding KAYLEE RIVAS RN - 12/12/2014 22:17 CDT Source: [facility] [employer] Document Id: [id number] CDT!152 Kaleigh Barnes R.N. - 12/12/2014 10:10 AM CDT Assessment Assessment Entered On: 12/12/2014 11:01 CDT Performed On: 12/12/2014 10:10 CDT by KALEIGH BARNES RN Assessment Visit Summary : Weight today 3150, 4% loss. TcB 4.5 at 24 hours, Low risk zone. 24 hour totals: 4 voids, 3 stools, 7 breastfeeds. independently, nipples intact, comfortable latch. Problems Identified - Reading : None Problems Identified - Mother : History of failure Length of Visit : 15 Minutes KALEIGH BARNES RN - 12/12/2014 12:07 CDT Assessment Indication : Ongoing Assessment Referral : discretion Skip Operator Needed : No KALEIGH BARNES RN - 12/12/2014 10:58 CDT Latch LATCH : 1 Audible Swallowing LATCH : 1 Type of Nipple LATCH : 2 Comfort LATCH : 2 Hold LATCH : 2 LATCH Score : 8 KALEIGH BARNES RN - 12/12/2014 12:07 CDT Information Number of Reading Voids in 24 Hours : 4 Number of Reading Stools in 24 Hours : 3 Stool Color : Black Stool Description : Meconium Behavior : Alert/Active Skin Color : Cisco Skin Description : Normal Jaw : Appropriate KALEIGH BARNES RN - 12/12/2014 12:07 CDT Mother Information Breast Assessment : Appropriate Nipple Assessment : Erect Nipple Condition : Intact, Tender Areola Assessment : Compressible Milk Supply : Colostrum KALEIGH BARNES RN - 12/12/2014 12:07 CDT Nutrition /Formula Feeding Type Consult : Nutrition Type Consult : Other: colostrum Breast Audible Swallowing : Q6-7 Sucks Breast Location : Right Length of Time : 15 minute(s) Feeding Comment : Plan: Breastfeed every 2-3 hours and on cue. Encouraged undressing, rubbing feet/toes to keep baby stimulated to feed. Feeding Tolerance : Adequate suck/swallow coordination KALEIGH BARNES RN - 12/12/2014 12:07 CDT Education General Patient Education Powergrid : Availability of , Breast Massage/Compression, Colostrum, Feeding, cues, Feeding, frequency/pattern, Latch On, achieving, Latch on, signs of adequate, Milk Supply - Establishing, Nipple management, prevention, Position, cross cradle, Swallowing pattern Individuals Taught : Patient Barriers to Learning : None evident Teaching Method : Explanation Teaching Evaluation : Returns demonstrations correctly, Verbalizes understanding KALEIGH BARNES RN - 12/12/2014 12:07 CDT Source: [employer] Document Id: [id number] CDT!47 Nusrat Gómez R.N. - 12/12/2014 9:00 AM CDT Post Assessment * Post Assessment * Entered On: 12/12/2014 10:56 CDT Performed On: 12/12/2014 9:00 CDT by NUSRAT GÓMEZ RN Post Partum Assessment * Excessive Lochia : Scant NUSRAT GÓMEZ RN - 12/12/2014 10:54 CDT Respiratory Respiratory Patient Stated Symptoms : None Respirations : Unlabored Distress : None Respiratory Pattern : Regular All Lobes Breath Sounds : Clear NUSRAT GÓMEZ RN - 12/12/2014 10:54 CDT Cardiovascular CV Patient Stated Symptoms : None Antiembolism Device Yes/No : No NUSRAT GMÓEZ RN - 12/12/2014 10:54 CDT Neurological Neuro Patient Stated Symptoms : None Orientation : Oriented x 3, Appropriate for age Level of Consciousness : Alert Gait : Steady NUSRAT GÓMEZ RN - 12/12/2014 10:54 CDT Psycho/Emotional Affect/Behavior : Calm, Cooperative, Appropriate Pain Symptoms : No NUSRAT GÓMEZ RN - 12/12/2014 10:54 CDT Gastrointestinal GI Patient Stated Symptoms : None Passing Flatus : Yes NUSRAT GÓMEZ RN - 12/12/2014 10:54 CDT Nutrition Appetite : Excellent Eating Difficulties : None NUSRAT GÓMEZ RN - 12/12/2014 10:54 CDT Genitourinary Patient Stated Symptoms : None NUSRAT GÓMEZ RN - 12/12/2014 10:54 CDT Integumentary Skin Integrity : Intact NUSRAT GÓMEZ RN - 12/12/2014 10:54 CDT [facility] Document Id: [id number] CDT!30 Shayy Teran R.N. - 12/12/2014 3:56 AM CDT PRN Response PRN Response Entered On: 12/12/2014 3:56 CDT Performed On: 12/12/2014 3:56 CDT by SHAYY TERAN RN PRN Medication Effectiveness Evaluation PRN Medication Effective : Other: patient sleeping JEFFRY SHAYY Cortez RN - 12/12/2014 3:56 CDT Source: [facility] [facility] Document Id: [id number] CDT!3 Shayy Teran R.N. - 12/12/2014 3:56 AM CDT PRN Response PRN Response Entered On: 12/12/2014 3:56 CDT Performed On: 12/12/2014 3:56 CDT by SHAYY TERAN RN PRN Medication Effectiveness Evaluation PRN Medication Effective : Other: patient sleeping JEFFRY SHAYY Cortez RN - 12/12/2014 3:56 CDT Source: [employer] Document Id: [id number] CDT!3 Shayy Teran R.N. - 12/12/2014 2:30 AM CDT Post Assessment * Post Assessment * Entered On: 12/12/2014 2:59 CDT Performed On: 12/12/2014 2:30 CDT by SHAYY TERAN RN Post Partum Assessment * Post Lochia : Lochia Rubra Excessive Lochia : Small SHAYY TERAN RN - 12/12/2014 2:56 CDT Cardiovascular Antiembolism Device Yes/No : No SHAYY TERAN RN - 12/12/2014 2:56 CDT Psycho/Emotional Pain Symptoms : Yes Feels Rested : Yes SHAYY TERAN RN - 12/12/2014 2:56 CDT Pain Scale Pain Scale Verbal 0-10 : Open SHAYY TERAN RN - 12/12/2014 2:56 CDT Pain Pain Assessment Grid Pain 1 Location : Abdomen Laterality : Bilateral Intensity : 6 Time Pattern : Acute, Intermittent Quality : Cramping Aggravating Factors : Other: Interventions : Medications, Repositioning, Rest SHAYY TERAN RN - 12/12/2014 2:56 CDT Education Antepartum Education Grid Education Topics : , , latch, , positioning, Medication dosage, route, scheduling, Medication generic/brand names, purpose, action, Pain management, Plan of care, Unit procedures Individuals Taught : Patient Barriers to Learning : None evident Teaching Method : Demonstration, Explanation Teaching Evaluation : Needs reinforcement, Verbalizes understanding SHAYY TERAN RN - 12/12/2014 2:56 CDT Source: [facility] [employer] Document Id: [id number] CDT!29 Shayy Teran RDeepali - 12/11/2014 11:30 PM CDT Post Assessment * Post Assessment * Entered On: 12/12/2014 0:18 CDT Performed On: 12/11/2014 23:30 CDT by SHAYY TERAN RN Post Partum Assessment * Breast Condition : Filling, Soft Nipples : Normal Nipple tenderness location : Bilateral Breast Secretions : Colostrum Breast Management : Assess for appropriate latch Feeding Method : Sucking : Latches well with sucking Fundus : Even Fundus condition : Firm Fundus position : Midline Post Lochia : Lochia Rubra Excessive Lochia : Small SHAYY TERAN RN - 12/12/2014 0:15 CDT Respiratory Respiratory Patient Stated Symptoms : None Respirations : Unlabored Respiratory Pattern : Regular All Lobes Breath Sounds : Clear Cough : None Sputum Amount : None Suction : None Airway : Patent SHAYY TERAN RN - 12/12/2014 0:15 CDT Cardiovascular CV Patient Stated Symptoms : None Heart Rhythm : Regular Heart Sounds ICU : S1S2 Antiembolism Device Yes/No : No Nail Bed Color : Cisco Capillary Refill : Less than 2 seconds Edema Assessment : No Skin Color : Normal for ethnicity Skin Description : Normal Skin Temperature : Warm Activity Tolerance : Without distress SHAYY TERAN 12/12/2014 0:15 CDT Neurological Neuro Patient Stated Symptoms : None Orientation : Oriented x 3, Appropriate for age Level of Consciousness : Drowsy Gait : Steady Swallowing Difficulty/Aspiration Risk : None SHAYY TERAN 12/12/2014 0:15 CDT Mandy Coma Eye Opening Response [place] : Spontaneously Best Verbal Response [place] : Oriented Best Motor Response Mandy : Obeys simple commands [place] Coma Score : 15 SHAYY TERAN [facility] 12/12/2014 0:15 CDT Psycho/Emotional Affect/Behavior : Calm, Cooperative, Appropriate Pain Symptoms : No Feels Rested : No SHAYY TERAN [facility] 12/12/2014 0:15 CDT Coping Grid Identifies effective strategies : Yes Uses effective strategies : Yes Reports increase in psychological comfort : Yes Indicates sense of control : Yes Stressors perceived within control : Yes Stable mood with appropriate affect : Yes Behaviors indicate use of coping mechanism : Yes Family supportive and involved in care : Yes Values/Beliefs incorporated appropriately : Yes SHAYY TERAN [facility] 12/12/2014 0:15 CDT Safety Grid Vision, Hearing, Mobility Adequate to Meet Safety Needs : Yes SHAYY TERAN 12/12/2014 0:15 CDT Gastrointestinal GI Patient Stated Symptoms : None Abdomen Description : Rounded, Symmetric Abdomen Palpation : Non-Tender, Soft Bowel Sounds All Quadrants : Present Passing Flatus : Yes SHAYY TERAN 12/12/2014 0:15 CDT Genitourinary Patient Stated Symptoms : None Urinary Elimination : Voiding, no difficulties Bladder Distention : Absent SHAYY TERAN [facility] 12/12/2014 0:15 CDT Integumentary Integumentary Patient Stated Symptoms : None Skin Turgor : Elastic Skin Integrity : Intact Mucous Membrane Color : Cisco Mucous Membrane Description : Moist Skin Color : Normal for ethnicity Skin Description : Normal Skin Temperature : Warm SHAYY TERAN [facility] 12/12/2014 0:15 CDT Saran Sensory Perception Saran : No impairment Moisture Saran : Rarely moist Activity Saran : Walks frequently Mobility Saran : No limitations Nutrition Saran : Excellent Friction and Shear Saran : No apparent problem Saran Score : 23 SHAYY TERAN RN - 12/12/2014 0:15 CDT Musculoskeletal Musculoskeletal Patient Stated Symptoms : None Activity Tolerance : Without distress SHAYY TERAN RN - 12/12/2014 0:15 CDT Musculoskeletal Strength Grid Left Upper Extremity Right Upper Extremity Left Lower Extremity Right Lower Extremity Strength : Strong to gravity and resistance Strong to gravity and resistance Strong to gravity and resistance Strong to gravity and resistance SHAYY TERAN RN - 12/12/2014 0:15 CDT SHAYY TERAN RN - 12/12/2014 0:15 CDT SHAYY TERAN RN - 12/12/2014 0:15 CDT SHAYY TERAN RN - 12/12/2014 0:15 CDT Peripheral IV Peripheral IV Assess/Intervention Grid Peripheral IV #1 IV Activity : Assessment Number of Attempts : 1 Date of Insertion : 12/10/2014 CDT IV Site : Hand Catheter Size : 18 Dressing/ Activity : Intact SHAYY TERAN RN - 12/12/2014 0:15 CDT Hendrich II Fall Risk Confusion/Disorientation Hendrich : No Depression Fall Risk Hendrich : No Altered Elimination Fall Risk Hendrich : No Dizziness/Vertigo Fall Risk Hendrich : No Gender, Male Fall Risk Hendrich : No Prescribed Antiepileptics Hendrich : No Prescribed Benzodiazepines Hendrich : No Rising From Chair Fall Risk Hendrich : Pushes up, successful in one attempt Fall Risk Score Hendrich II : 1 SHAYY TERAN RN - 12/12/2014 0:15 CDT Safe Patient Handling Safe Pt Handling Independent : Yes - No equipment needed Safe Pt Handling Equipment Rec : No Equipment Needed Repositioning Device Recommended : No SHAYY TERAN RN - 12/12/2014 0:15 CDT Education Antepartum Education Grid Education Topics : , Nipple management, Normal , Pain management, Dara-Care, Plan of care, Role of support person, Security, , Unit procedures, Vaginal discharge Individuals Taught : Patient Barriers to Learning : None evident Teaching Method : Explanation Teaching Evaluation : Verbalizes understanding SHAYY TERAN RN - 12/12/2014 0:15 CDT Source: [facility] [employer] Document Id: [id number] CDT!132 Lianne Hearn R.N. - 12/11/2014 9:00 PM CDT PRN Response PRN Response Entered On: 12/11/2014 22:09 CDT Performed On: 12/11/2014 21:00 CDT by LIANNE HEARN RN PRN Medication Effectiveness Evaluation PRN Medication Effective : Yes LIANNE HEARN RN - 12/11/2014 22:09 CDT Source: [facility] [employer] Document Id: [id number] CDT!3 Lianne Hearn R.N. - 12/11/2014 7:45 PM CDT PRN Response PRN Response Entered On: 12/11/2014 19:47 CDT Performed On: 12/11/2014 19:45 CDT by LIANNE HEARN RN PRN Medication Effectiveness Evaluation PRN Medication Effective : Yes Post Medication Pain Assessment : 5 LIANNE HEARN RN - 12/11/2014 19:47 CDT [facility] [employer] [facility] Document Id: [id number] CDT!4 Lianne Hearn R.N. - 12/11/2014 7:40 PM CDT Post Assessment * Post Assessment * Entered On: 12/11/2014 21:51 CDT Performed On: 12/11/2014 19:40 CDT by LIANNE HEARN RN Post Partum Assessment * Breast Condition : Filling Nipples : Normal Infant Feeding Method : Sucking : Latches well with sucking Fundus : Even Fundus condition : Firm with massage Fundus position : Midline Excessive Lochia : Scant LIANNE HEARN RN - 12/11/2014 21:47 CDT Respiratory Respiratory Patient Stated Symptoms : None Respirations : Unlabored Respiratory Pattern : Regular All Lobes Breath Sounds : Clear LIANNE HEARN Edwin MONTES - 12/11/2014 21:47 CDT Cardiovascular CV Patient Stated Symptoms : None Heart Rhythm : Regular Antiembolism Device Yes/No : No Nail Bed Color : Cisco Capillary Refill : Less than 2 seconds Edema Assessment : No LIANNE HEARN Edwin MONTES - 12/11/2014 21:47 CDT Radial Pulse, Left : 2+ Normal Radial Pulse, Right : 2+ Normal LIANNE HEARN Edwin MONETS - 12/11/2014 21:47 CDT Neurological Neuro Patient Stated Symptoms : None Orientation : Oriented x 3 Level of Consciousness : Alert Gait : Steady LIANNE HEARN Edwin MONTES - 12/11/2014 21:47 CDT [place] Coma Eye Opening Response [place] : Spontaneously Best Verbal Response Mandy : Oriented Best Motor Response [place] : Obeys simple commands Mandy Coma Score : 15 LIANNE HEARN Edwin MONTES - 12/11/2014 21:47 CDT Psycho/Emotional Affect/Behavior : Calm Pain Symptoms : Yes LIANNE HEARN Edwin MONTES - 12/11/2014 21:47 CDT Coping Grid Stable mood with appropriate affect : Yes Behaviors indicate use of coping mechanism : Yes Family supportive and involved in care : Yes LIANNE HEARN Edwin MONTES - 12/11/2014 21:47 CDT Safety Grid Vision, Hearing, Mobility Adequate to Meet Safety Needs : Yes LIANNE HEARN Edwin MONTES - 12/11/2014 21:47 CDT Gastrointestinal GI Patient Stated Symptoms : Cramping Abdomen Palpation : Soft, Tender Tenderness : All quadrants Bowel Sounds All Quadrants : Present LIANNE HEARN Edwin MONTES - 12/11/2014 21:47 CDT Nutrition Appetite : Excellent LIANNE HEARN Edwin MONTES - 12/11/2014 21:47 CDT Genitourinary Patient Stated Symptoms : None Urinary Elimination : Voiding, no difficulties LIANNE HEARN Edwin MONTES - 12/11/2014 21:47 CDT Integumentary Integumentary Patient Stated Symptoms : None Skin Turgor : Elastic Mucous Membrane Color : Cisco Mucous Membrane Description : Moist Skin Color : Normal for ethnicity Skin Description : Normal Skin Temperature : Warm LIANNE HEARN Edwin MONTES - 12/11/2014 21:47 CDT Saran Sensory Perception Saran : No impairment Moisture Saran : Rarely moist Activity Saran : Walks occasionally Mobility Saran : No limitations Nutrition Saran : Excellent Friction and Shear Saran : No apparent problem Saran Score : 22 LIANNE HEARN RN - 12/11/2014 21:47 CDT Peripheral IV Peripheral IV Assess/Intervention Grid Peripheral IV #1 IV Activity : Assessment Number of Attempts : 1 Date of Insertion : 12/10/2014 CDT IV Site : Hand Catheter Size : 18 Infiltration Score : 0 Phlebitis Score : 0 LIANNE HEARN RN - 12/11/2014 21:47 CDT Hendrich II Fall Risk Confusion/Disorientation Hendrich : No Depression Fall Risk Hendrich : No Altered Elimination Fall Risk Hendrich : No Dizziness/Vertigo Fall Risk Hendrich : No Gender, Male Fall Risk Hendrich : No Prescribed Antiepileptics Hendrich : No Prescribed Benzodiazepines Hendrich : No Rising From Chair Fall Risk Hendrich : Pushes up, successful in one attempt Fall Risk Score Hendrich II : 1 LIANNE HEARN RN - 12/11/2014 21:47 CDT Source: [employer] Document Id: [id number] CDT!90 Gabrielle Reyna R.N. - 12/11/2014 3:15 PM CDT PRN Response PRN Response Entered On: 12/11/2014 15:39 CDT Performed On: 12/11/2014 15:15 CDT by GABRIELLE REYNA RN PRN Medication Effectiveness Evaluation PRN Medication Effective : Yes Post Medication Pain Assessment : 2 GABRIELLE REYNA RN - 12/11/2014 15:39 CDT Source: [employer] Document Id: [id number] CDT!4 Gabrielle Reyna R.N. - 12/11/2014 3:15 PM CDT Post Assessment * Post Assessment * Entered On: 12/11/2014 15:52 CDT Performed On: 12/11/2014 15:15 CDT by REYNA, GABRIELLE L museum service scheduler Assessment * Breast Condition : Filling Feeding Method : Infant Sucking : Latches well with sucking Fundus : Even Fundus condition : Firm Fundus position : Midline Post Lochia : Lochia Rubra Excessive Lochia : Other: patient states flow is fine, states had small clots earlier today but nonethis afternoon GABRIELLE REYNA RN - 12/11/2014 15:40 CDT Respiratory Respiratory Patient Stated Symptoms : None Respirations : Unlabored Respiratory Pattern : Regular All Lobes Breath Sounds : Clear Cough and Deep Breathe : Done Cough : None Sputum Amount : None Suction : None Airway : Patent GABRIELLE REYNA RN - 12/11/2014 15:40 CDT Cardiovascular CV Patient Stated Symptoms : None Heart Rhythm : Regular Antiembolism Device Yes/No : No Nail Bed Color : Cisco Capillary Refill : Less than 2 seconds Edema Assessment : Yes GABRIELLE REYNA RN - 12/11/2014 15:40 CDT Radial Pulse, Left : 2+ Normal Radial Pulse, Right : 2+ Normal GABRIELLE REYNA RN - 12/11/2014 15:40 CDT Skin Color : Normal for ethnicity Skin Description : Normal Skin Temperature : Warm Activity Tolerance : Without distress GABRIELLE REYNA RN - 12/11/2014 15:40 CDT Edema Details Edema Detailed Grid Pedal Edema Bilateral : 1+ trace/2mm GABRIELLE REYNA RN - 12/11/2014 15:40 CDT Neurological Neuro Patient Stated Symptoms : None Orientation : Oriented x 3 Level of Consciousness : Alert Gait : Steady Swallowing Difficulty/Aspiration Risk : None GABRIELLE REYNA RN - 12/11/2014 15:40 CDT [place] Coma Eye Opening Response Mandy : Spontaneously Best Verbal Response [place] : Oriented Best Motor Response [place] : Obeys simple commands [place] Coma Score : 15 GABRIELLE REYNA RN - 12/11/2014 15:40 CDT Psycho/Emotional Affect/Behavior : Calm, Cooperative, Appropriate Pain Symptoms : Yes GABRIELLE REYNA RN - 12/11/2014 15:40 CDT Coping Grid Stable mood with appropriate affect : Yes Behaviors indicate use of coping mechanism : Yes Family supportive and involved in care : Yes Values/Beliefs incorporated appropriately : Yes GABRIELLE REYNA RN - 12/11/2014 15:40 CDT Safety Grid Vision, Hearing, Mobility Adequate to Meet Safety Needs : Yes GABRIELLE REYNA Dana RN - 12/11/2014 15:40 CDT Pain Scale Pain Scale Verbal 0-10 : Open GABRIELLE REYNA Dana RN - 12/11/2014 15:40 CDT Pain Pain Assessment Grid Pain 1 Location : Abdomen Intensity : 2 Quality : Cramping Interventions : Medications (Comment: taking ibuprofen, states increases with feedings [REYNAGABRIELLE RN - 12/11/2014 15:40 CDT] ) VICKEYYINGGABRIELLE Dana RN - 12/11/2014 15:40 CDT Gastrointestinal GI Patient Stated Symptoms : None Abdomen Description : Rounded Abdomen Palpation : Non-Tender Bowel Sounds All Quadrants : Present Passing Flatus : Yes REYNAYINGGABRIELLE Dana RN - 12/11/2014 15:40 CDT Nutrition Appetite : Good Eating Difficulties : None Feeding Ability : Complete independence VICKEY GABRIELLE Dana RN - 12/11/2014 15:40 CDT Genitourinary Patient Stated Symptoms : None Urinary Elimination : Voiding, no difficulties Bladder Distention : Absent REYNAYINGGABRIELLE L RN - 12/11/2014 15:40 CDT Integumentary Integumentary Patient Stated Symptoms : None Skin Turgor : Elastic Skin Integrity : Intact Mucous Membrane Color : Cisco Mucous Membrane Description : Moist VICKEY GABRIELLE Dana RN - 12/11/2014 15:40 CDT Saran Sensory Perception Saran : No impairment Moisture Saran : Rarely moist Activity Saran : Walks frequently Mobility Saran : No limitations Nutrition Saran : Adequate Friction and Shear Saran : No apparent problem Saran Score : 22 REYNAYINGGABRIELLE Dana RN - 12/11/2014 15:40 CDT Musculoskeletal Musculoskeletal Patient Stated Symptoms : None Activity Tolerance : Without distress REYNAYINGGABRIELLE L RN - 12/11/2014 15:40 CDT Musculoskeletal Strength Grid Left Upper Extremity Right Upper Extremity Left Lower Extremity Right Lower Extremity Sensation : Intact Intact Intact Intact GABRIELLE REYNA RN - 12/11/2014 15:40 CDT GABRIELLE REYNA RN - 12/11/2014 15:40 CDT GABRIELLE REYNA RN - 12/11/2014 15:40 CDT GABRIELLE REYNA RN - 12/11/2014 15:40 CDT Peripheral IV Peripheral IV Assess/Intervention Grid Peripheral IV #1 IV Activity : Assessment Number of Attempts : 1 Date of Insertion : 12/10/2014 CDT IV Site : Hand Catheter Size : 18 Site Condition : No complications Drainage Description : None Infiltration Score : 0 Phlebitis Score : 0 Flow/ Patency : No complications GABRIELLE REYNA RN - 12/11/2014 15:40 CDT Hendrich II Fall Risk Confusion/Disorientation Hendrich : No Depression Fall Risk Hendrich : No Altered Elimination Fall Risk Hendrich : No Dizziness/Vertigo Fall Risk Hendrich : No Gender, Male Fall Risk Hendrich : No Prescribed Antiepileptics Hendrich : No Prescribed Benzodiazepines Hendrich : No Rising From Chair Fall Risk Hendrich : Able to rise in a single movement, no loss of balance with steps Fall Risk Score Hendrich II : 0 GABRIELLE REYNA RN - 12/11/2014 15:40 CDT Safe Patient Handling Safe Pt Handling Independent : Yes - No equipment needed Safe Pt Handling Equipment Rec : No Equipment Needed GABRIELLE REYNA RN - 12/11/2014 15:40 CDT Education Antepartum Education Grid Education Topics : , Medication dosage, route, scheduling, Plan of care, Vaginal discharge Individuals Taught : Patient Barriers to Learning : None evident Teaching Method : Explanation Teaching Evaluation : Able to teach back GABRIELLE REYNA RN - 12/11/2014 15:40 CDT Source: [employer] Document Id: [id number] CDT!142 Gabrielle Reyna R.N. - 12/11/2014 12:30 PM CDT PRN Response PRN Response Entered On: 12/11/2014 13:07 CDT Performed On: 12/11/2014 12:30 CDT by GABRIELLE REYNA RN PRN Medication Effectiveness Evaluation PRN Medication Effective : Yes Post Medication Pain Assessment : 4 GABRIELLE REYNA RN - 12/11/2014 13:07 CDT Source: [employer] Document Id: [id number] CDT!4 Kaitlin Peña R.N., I.B.CPedroLPedroC. - 12/11/2014 9:30 AM CDT Assessment Assessment Entered On: 12/11/2014 21:24 CDT Performed On: 12/11/2014 9:30 CDT by KAITLIN PEÑA RN Assessment Assessment Indication : Consult Referral : discretion Skip Operator Needed : No Visit Summary : Respite Worker visit at 8 hours of age, L2 admitted at 403/7 weeks gestation in labor, dilated 4-5 cm./50% effaced. Artificial rupture of membranes at 7 cm 100% effaced. Vaginal delivery of 7# 5 oz. baby boy, apgars 8 and 9. Pitocin augmentation, epidural anesthesia, no episiotomy, but first degree laceration. GBS+, Blood type A+. One hour glucose 123, A1c 5.1. History of oligohydramnios, resolved; Factor V clotting issues in family, history of post hemorrhage withfirst baby. Meds include Calcium and vitamins, during , Flagyl, Clindamycin, Zithromax, Amoxicillin, [place] and Oxycontin. Assisted with waking and positioning and latch. Baby in football hold on the right with a couple tries gets soft chin, swallowing with almost every suck, comfortable grasp. Answered parents questions about lactogenesis, pumping and feeding patterns. Problems Identified - Reading : None Problems Identified - Mother : Feeding plan management, History of failure Length of Visit : 45 Minutes KAITLIN PEÑA RN - 12/11/2014 21:21 CDT Latch LATCH : 1 Audible Swallowing LATCH : 2 Type of Nipple LATCH : 2 Comfort LATCH : 2 Hold LATCH : 1 LATCH Score : 8 KAITLIN PEÑA RN - 12/11/2014 21:21 CDT Mother Information Breast Assessment : Appropriate Nipple Assessment : Bilateral, Erect Nipple Condition : Bilateral, Intact Areola Assessment : Compressible Milk Supply : Colostrum KAITLIN PEÑA RN - 12/11/2014 21:21 CDT Education General Patient Education Powergrid : Availability of , Bottle Feeding Technique, Breast Massage/Compression, Breast pump set up/use/cleaning, Colostrum, Elimination pattern, Engorgement management, prevention, Engorgement management, RPS technique, Engorgement management, treatment, Expressed milk, appropriate use, Expressed milk, handling/storage, Feeding, cues, Feeding, frequency/pattern, Hand expression, Latch On, achieving, Latch on, signs of adequate, Milk Supply - Establishing, Reading behavior, , response to labor/delivery, Nipple management, prevention, Pacifier, Position, football hold, Return to work, Role of support person, Skin to Skin, Swallowing pattern, Swallowing sound (Comment: Respite Worker visit at 8 hours of age for reveiw of past experience with , instruction in hand expression, discussed paced bottle feeding, milk storage, had pumped with new pump during and got several oz. [KAITLIN PEÑA RN - 12/11/2014 21:21 CDT] ) Individuals Taught : Patient, Spouse Barriers to Learning : None evident Teaching Method : Demonstration, Explanation Teaching Evaluation : Able to teach back, Returns demonstrations correctly, Verbalizes understanding KAITLIN PEÑA RN - 12/11/2014 21:21 CDT Source: [facility] P[employer] Document Id: [id number] CDT!30 Michaela Lieberman R.N. - 12/11/2014 9:00 AM CDT Post Assessment * Post Assessment * Entered On: 12/11/2014 9:03 CDT Performed On: 12/11/2014 9:00 CDT by MICHAELA LIEBERMAN RN Post Partum Assessment * Breast Condition : Soft Feeding Method : Infant Sucking : Does not latch Fundus : Even Fundus condition : Firm Fundus position : Midline Post Lochia : Lochia Rubra Excessive Lochia : Small MICHAELA LIEBERMAN RN - 12/11/2014 9:00 CDT Respiratory Respiratory Patient Stated Symptoms : None Respirations : Unlabored Respiratory Pattern : Regular All Lobes Breath Sounds : Clear Cough : None Sputum Amount : None Suction : None Airway : Patent MICHAELA LIEBERMAN RN - 12/11/2014 9:00 CDT Cardiovascular CV Patient Stated Symptoms : None Heart Rhythm : Regular Antiembolism Device Yes/No : No Nail Bed Color : Cisco Capillary Refill : Less than 2 seconds Edema Assessment : No Pacer : No Skin Color : Normal for ethnicity Skin Description : Normal Skin Temperature : Warm Activity Tolerance : Without distress MICHAELA LIEBERMAN RN - 12/11/2014 9:00 CDT Neurological Neuro Patient Stated Symptoms : None Orientation : Oriented x 3, Appropriate for age Gait : Steady Swallowing Difficulty/Aspiration Risk : None MICHAELA LIEBERMAN RN - 12/11/2014 9:00 CDT Mandy Coma Eye Opening Response [place] : Spontaneously Best Verbal Response Mandy : Oriented Best Motor Response [place] : Obeys simple commands [place] Coma Score : 15 MICHAELA LIEBERMAN RN - 12/11/2014 9:00 CDT Oral Exam - Swing Bed Teeth and supporting structure for : No abnormality Oral Cavity Tissue for : No abnormality Partials or Dentures for : No abnormality Are there any swollen lymph nodes in neck : No MICHAELA LIEBERMAN RN - 12/11/2014 9:00 CDT Psycho/Emotional Affect/Behavior : Calm, Cooperative, Appropriate Pain Symptoms : No MICHAELA LIEBERMAN RN - 12/11/2014 9:00 CDT Gastrointestinal GI Patient Stated Symptoms : None Passing Flatus : No MICHAELA LIEBERMAN RN - 12/11/2014 9:00 CDT Nutrition Appetite : Good MICHAELA LIEBERMAN RN - 12/11/2014 9:00 CDT Genitourinary Patient Stated Symptoms : None MICHAELA LIEBERMAN RN - 12/11/2014 9:00 CDT Integumentary Integumentary Patient Stated Symptoms : None Skin Turgor : Elastic Skin Integrity : Intact Mucous Membrane Color : Cisco Mucous Membrane Description : Moist Skin Color : Normal for ethnicity Skin Description : Normal Skin Temperature : Warm MICHAELA LIEBERMAN RN - 12/11/2014 9:00 CDT Saran Sensory Perception Saran : No impairment Moisture Saran : Rarely moist Activity Saran : Walks frequently Mobility Saran : No limitations Nutrition Saran : Excellent Friction and Shear Saran : No apparent problem Saran Score : 23 MICHAELA LIEBERMAN RN - 12/11/2014 9:00 CDT Musculoskeletal Musculoskeletal Patient Stated Symptoms : None Activity Tolerance : Without distress MICHAELA LIEBERMAN RN - 12/11/2014 9:00 CDT Peripheral IV Peripheral IV Assess/Intervention Grid Peripheral IV #1 IV Activity : Start Number of Attempts : 1 Date of Insertion : 12/10/2014 CDT IV Site : Hand Catheter Size : 18 MICHAELA LIEBERMAN RN - 12/11/2014 9:00 CDT Hendrich II Fall Risk Confusion/Disorientation Hendrich : No Depression Fall Risk Hendrich : No Altered Elimination Fall Risk Hendrich : No Dizziness/Vertigo Fall Risk Hendrich : No Gender, Male Fall Risk Hendrich : No Prescribed Antiepileptics Hendrich : No Prescribed Benzodiazepines Hendrich : No Rising From Chair Fall Risk Hendrich : Able to rise in a single movement, no loss of balance with steps Fall Risk Score Hendrich II : 0 MICHAELA LIEBERMAN RN - 12/11/2014 9:00 CDT Safe Patient Handling Safe Pt Handling Independent : Yes - No equipment needed Safe Pt Handling Equipment Rec : No Equipment Needed MICHAELA LIEBERMAN RN - 12/11/2014 9:00 CDT Source: [employer] Document Id: [id number] CDT!97 Michaela Lieberman R.N. - 12/11/2014 8:53 AM CDT PRN Response PRN Response Entered On: 12/11/2014 8:53 CDT Performed On: 12/11/2014 8:53 CDT by MICHAELA LIEBERMAN RN PRN Medication Effectiveness Evaluation PRN Medication Effective : Yes Post Medication Pain Assessment : 1 MICHAELA LIEBERMAN RN - 12/11/2014 8:53 CDT Source: [employer] Document Id: [id number] CDT!4 Alexis Kevin R.N. - 12/11/2014 2:30 AM CDT Post Assessment * Post Assessment * Entered On: 12/11/2014 4:22 CDT Performed On: 12/11/2014 2:30 CDT by ALEXIS KEVIN RN Post Partum Assessment * Breast Condition : Soft Nipples : Normal Breast Secretions : Colostrum Breast Management : Assess for appropriate latch Feeding Method : Infant Sucking : Latches well with sucking ALEXIS KEVIN SIMON - 12/11/2014 4:23 CDT Fundus : +1 Fundus condition : Firm Fundus position : Midline Post Lochia : Lochia Rubra Excessive Lochia : Moderate ALEXIS KEVIN SIMON - 12/11/2014 4:22 CDT Respiratory Respiratory Patient Stated Symptoms : None Respirations : Unlabored Respiratory Pattern : Regular All Lobes Breath Sounds : Clear Cough and Deep Breathe : Done Cough : None ADRIALEXIS CHAUDHARY Dnaa RN - 12/11/2014 4:23 CDT Cardiovascular Antiembolism Device Yes/No : No ADRIJETTORALEXIS Dana MONTES - 12/11/2014 4:22 CDT Neurological Neuro Patient Stated Symptoms : None Orientation : Oriented x 3, Appropriate for age Level of Consciousness : Alert Swallowing Difficulty/Aspiration Risk : None CAROLYNJETTORALEXIS Dana MONTES - 12/11/2014 4:23 CDT Psycho/Emotional Pain Symptoms : No TOR KEVINOLE Dana MONTES - 12/11/2014 4:22 CDT Gastrointestinal GI Patient Stated Symptoms : None Abdomen Description : Symmetric Abdomen Palpation : Non-Tender, Soft Bowel Sounds All Quadrants : Present Passing Flatus : Yes TOR KEVINOLE Dana MONTES - 12/11/2014 4:23 CDT Nutrition Appetite : Good Eating Difficulties : None CAROLYNJET ALEXIS Dana MONTES - 12/11/2014 4:23 CDT Genitourinary Patient Stated Symptoms : None CAROLYNJETTORALEXIS Dana MONTES - 12/11/2014 4:23 CDT Integumentary Integumentary Patient Stated Symptoms : None Skin Turgor : Elastic Skin Integrity : Intact Mucous Membrane Color : Cisco Mucous Membrane Description : Moist Skin Color : Normal for ethnicity Skin Description : Dry Skin Temperature : Warm CAROLYNALEXIS CHAUDHARY Dana MONTES - 12/11/2014 4:23 CDT Saran Sensory Perception Saran : No impairment Moisture Saran : Rarely moist Activity Saran : Walks occasionally Mobility Saran : No limitations Nutrition Saran : Adequate Friction and Shear Saran : No apparent problem Saran Score : 21 CAROLYNJETTORALEXIS Dana MONTES - 12/11/2014 4:23 CDT Peripheral IV Peripheral IV Assess/Intervention Grid Peripheral IV #1 IV Activity : Start Number of Attempts : 1 Date of Insertion : 12/10/2014 CDT IV Site : Hand Catheter Size : 18 ALEXIS KEVIN RN - 12/11/2014 4:23 CDT Hendrich II Fall Risk Confusion/Disorientation Hendrich : No Depression Fall Risk Hendrich : No Altered Elimination Fall Risk Hendrich : No Dizziness/Vertigo Fall Risk Hendrich : No Gender, Male Fall Risk Hendrich : No Prescribed Antiepileptics Hendrich : No Prescribed Benzodiazepines Hendrich : No Rising From Chair Fall Risk Hendrich : Pushes up, successful in one attempt Fall Risk Score Hendrich II : 1 ALEXIS KEVIN RN - 12/11/2014 4:23 CDT Source: [employer] Document Id: [id number] CDT!66 Alexis Kevin R.N. - 12/11/2014 2:00 AM CDT Post Assessment * Post Assessment * Entered On: 12/11/2014 4:22 CDT Performed On: 12/11/2014 2:00 CDT by ALEXIS KEVIN museum service scheduler Assessment * Fundus : +1 Fundus condition : Firm Fundus position : Midline Post Lochia : Lochia Rubra Excessive Lochia : Moderate ALEXIS KEVIN RN - 12/11/2014 4:22 CDT Cardiovascular Antiembolism Device Yes/No : No ALXEIS KEVIN RN - 12/11/2014 4:22 CDT Psycho/Emotional Pain Symptoms : No ALEXIS KEVIN RN - 12/11/2014 4:22 CDT Source: [facility] [facility] Document Id: [id number] CDT!11 Alexis Kevin R.N. - 12/11/2014 1:30 AM CDT Post Assessment * Post Assessment * Entered On: 12/11/2014 4:21 CDT Performed On: 12/11/2014 1:30 CDT by ALEXIS KEVIN RN Post Partum Assessment * Fundus : +1 Fundus condition : Firm Fundus position : Midline Post Lochia : Lochia Rubra Excessive Lochia : Moderate ALEXIS KEVIN RN - 12/11/2014 4:21 CDT Cardiovascular Antiembolism Device Yes/No : No ALEXIS KEVIN RN - 12/11/2014 4:21 CDT Psycho/Emotional Pain Symptoms : No ALEXIS KEVIN RN - 12/11/2014 4:21 CDT Source: [facility] Document Id: [id number] CDT!11 Alexis Kevin R.N. - 12/11/2014 1:15 AM CDT Post Assessment * Post Assessment * Entered On: 12/11/2014 4:21 CDT Performed On: 12/11/2014 1:15 CDT by ALEXIS KEVIN RN Post Partum Assessment * Fundus : +1 Fundus condition : Firm Fundus position : Midline Post Lochia : Lochia Rubra Excessive Lochia : Moderate ALEXIS KEVIN RN - 12/11/2014 4:20 CDT Cardiovascular Antiembolism Device Yes/No : No ALEXIS KEVIN RN - 12/11/2014 4:20 CDT Psycho/Emotional Pain Symptoms : No ALEXIS KEVIN RN - 12/11/2014 4:20 CDT Source: [facility] [facility] Document Id: [id number] CDT!11 Alexis Kevin R.N. - 12/10/2014 11:34 PM CDT Ongoing Assessment Antepartum Ongoing Assessment Antepartum Entered On: 12/11/2014 2:49 CDT Performed On: 12/10/2014 23:34 CDT by ALEXIS KEVIN RN OB Exam Cervix Dilation : 10 Cervix Effacement : 100 Cervical Consistency : Soft Station : +1 Cervical Position : Mid Membrane Status : Artificial rupture Amniotic Fluid Amount : Moderate Amniotic Fluid Color/Description : Blood tinged Amniotic Fluid Odor : None Vaginal Discharge Description : Blood tinged Presenting Part : Vertex ALEXIS KEVIN RN - 12/11/2014 2:48 CDT Cardiovascular Antiembolism Device Yes/No : No ALEXIS KEVIN RN - 12/11/2014 2:48 CDT Psycho/Emotional Pain Symptoms : Yes ALEXIS KEVIN RN - 12/11/2014 2:48 CDT Pain Scale Pain Scale Verbal 0-10 : Open ALEXIS KEVIN RN - 12/11/2014 2:48 CDT Pain Pain Assessment Grid Pain 1 Location : Abdomen Intensity : 4 ALEXIS KEVIN RN - 12/11/2014 2:48 CDT Source: [facility] Document Id: [id number] CDT!24 Alexis Kevin, R.N. - 12/10/2014 10:30 PM CDT Ongoing Assessment Antepartum Ongoing Assessment Antepartum Entered On: 12/11/2014 2:52 CDT Performed On: 12/10/2014 22:30 CDT by ALEXIS KEVIN RN OB Exam Cervix Dilation : 8-9 Cervix Effacement : 100 Cervical Consistency : Soft Station : +1 Membrane Status : Artificial rupture Amniotic Fluid Amount : Moderate Amniotic Fluid Color/Description : Blood tinged Amniotic Fluid Odor : None Vaginal Discharge Description : Blood tinged Presenting Part : Vertex ALEXIS KEVIN RN - 12/11/2014 2:49 CDT Cardiovascular Antiembolism Device Yes/No : No ALEXIS KEVIN RN - 12/11/2014 2:49 CDT Psycho/Emotional Pain Symptoms : Yes ALEXIS KEVIN RN - 12/11/2014 2:49 CDT Pain Scale Pain Scale Verbal 0-10 : Open ALEXIS KEVIN RN - 12/11/2014 2:49 CDT Pain Pain Assessment Grid Pain 1 Location : Abdomen Intensity : 8 ALEXIS KEVIN RN - 12/11/2014 2:49 CDT Source: [facility] Document Id: [id number] CDT!23 Alexis Kevin R.N. - 12/10/2014 10:00 PM CDT PRN Response PRN Response Entered On: 12/10/2014 23:21 CDT Performed On: 12/10/2014 22:00 CDT by ALEXIS KEVIN RN PRN Medication Effectiveness Evaluation PRN Medication Effective : Yes Post Medication Pain Assessment : 3 ALEXIS KEVIN RN - 12/10/2014 23:21 CDT Source: [facility] Document Id: [id number] CDT!4 Alexis Kevin R.N. - 12/10/2014 9:30 PM CDT Ongoing Assessment Antepartum Ongoing Assessment Antepartum Entered On: 12/11/2014 2:55 CDT Performed On: 12/10/2014 21:30 CDT by ALEXIS KEVIN RN OB Exam Cervix Dilation : 7 Cervix Effacement : 80 Cervical Consistency : Soft Station : 0 Cervical Position : Mid Membrane Status : Artificial rupture (Comment: Per Dr. Armendariz [ALEXIS KEVIN RN - 12/11/2014 2:54 CDT] ) Amniotic Fluid Amount : Moderate Amniotic Fluid Color/Description : Clear Amniotic Fluid Odor : None Vaginal Discharge Description : Clear Presenting Part : Vertex ALEXIS KEVIN RN - 12/11/2014 2:54 CDT Cardiovascular Antiembolism Device Yes/No : No ALEXIS KEVIN RN - 12/11/2014 2:54 CDT Psycho/Emotional Pain Symptoms : Yes ALEXIS KEVIN RN - 12/11/2014 2:54 CDT Pain Scale Pain Scale Verbal 0-10 : Open ALEXIS KEVIN RN - 12/11/2014 2:54 CDT Pain Pain Assessment Grid Pain 1 Location : Abdomen Intensity : 10 ALEXIS KEVIN RN - 12/11/2014 2:54 CDT Source: [employer] Document Id: [id number] CDT!24 Alexis Kevin R.N. - 12/10/2014 8:30 PM CDT Ongoing Assessment Antepartum Ongoing Assessment Antepartum Entered On: 12/11/2014 4:17 CDT Performed On: 12/10/2014 20:30 CDT by ALEXIS KEVIN RN OB Exam Cervix Dilation : 6-7 (Comment: IV Pitocin started at this time at 1 mu [ALEXIS KEVIN RN - 12/11/2014 4:16 CDT] ) Cervix Effacement : 80 Cervical Consistency : Soft Station : 0 Cervical Position : Mid Membrane Status : Intact Amniotic Fluid Amount : None Presenting Part : Vertex ALEXIS KEVIN RN - 12/11/2014 4:16 CDT Cardiovascular Antiembolism Device Yes/No : No ALEXIS KEVIN RN - 12/11/2014 4:16 CDT Psycho/Emotional Pain Symptoms : No ALEXIS KEVIN RN - 12/11/2014 4:16 CDT Source: [facility] Document Id: [id number] CDT!14 Alexis Kevin R.N. - 12/10/2014 7:00 PM CDT Ongoing Assessment Antepartum Ongoing Assessment Antepartum Entered On: 12/11/2014 2:47 CDT Performed On: 12/10/2014 19:00 CDT by ALEXIS KEVIN RN OB Exam Cervix Dilation : 6-7 Cervix Effacement : 80 Cervical Consistency : Soft Station : 0 Cervical Position : Mid Membrane Status : Intact Amniotic Fluid Amount : None ALEXIS KEVIN RN - 12/11/2014 0:18 CDT Cardiovascular Antiembolism Device Yes/No : No ALEXIS KEVIN RN - 12/11/2014 0:18 CDT Psycho/Emotional Pain Symptoms : No ALEXIS KEVIN RN - 12/11/2014 0:18 CDT Source: [facility] Document Id: [id number] CDT!13 Michaela Lieberman RDeepali - 12/10/2014 6:00 PM CDT Ongoing Assessment Antepartum Ongoing Assessment Antepartum Entered On: 12/10/2014 18:19 CDT Performed On: 12/10/2014 18:00 CDT by MICHAELA LIEBERMAN RN FHR, Prabhakar/Baby A Uterine Contraction Monitoring Method : External toco Uterine Contraction Frequency : 1.5-5 Uterine Contraction Duration : 30-50 Uterine Contraction Intensity, Ext Palp : Moderate Uterine Contraction Rest Tone, Ext Palp : Soft FHR Monitoring Method : Electronic monitoring FHR Monitoring Frequency : Continuous FHR Baseline : 125 Heart Rate Reactive Prabhakar/Baby A : Yes FHR Baseline Description : Within normal limits FHR Tracing : Category 1 FHR Variability : Moderate variability Sinusoidal Prabhakar/Baby A : No FHR Accelerations : Present FHR Deceleration : Absent FHR Provider Present : Yes FHR Comment : Dr. Armendariz here now for discussion of POC. Cervical exam now per . MICHAELA LIEBERMAN RN - 12/10/2014 18:16 CDT OB Exam Cervix Dilation : 6 Cervical Consistency : Soft Station : 0 Cervical Position : Anterior Membrane Status : Intact Amniotic Fluid Amount : None MICHAELA LIEBERMAN RN - 12/10/2014 18:16 CDT Cardiovascular Antiembolism Device Yes/No : No MICHAELA LIEBERMAN RN - 12/10/2014 18:16 CDT Psycho/Emotional Pain Symptoms : Yes MICHAELA LIEBERMAN RN - 12/10/2014 18:16 CDT Pain Scale Pain Scale Verbal 0-10 : Open MICHAELA LIEBERMAN RN - 12/10/2014 18:16 CDT Pain Pain Assessment Grid Pain 1 Location : Abdomen Intensity : 8 MICHAELA LIEBERMAN RN - 12/10/2014 18:16 CDT Source: [employer] Document Id: [id number] CDT!37 Michaela Lieberman R.N. - 12/10/2014 1:30 PM CDT Ongoing Assessment Antepartum Ongoing Assessment Antepartum Entered On: 12/10/2014 15:06 CDT Performed On: 12/10/2014 13:30 CDT by MICHAELA LIEBERMAN RN OB Exam Cervix Dilation : 4-5 Cervix Effacement : 50 Cervical Consistency : Soft Station : +1 Cervical Position : Anterior Membrane Status : Intact MICHAELA LIEBERMAN RN - 12/10/2014 15:04 CDT Cardiovascular CV Patient Stated Symptoms : None Antiembolism Device Yes/No : No MICHAELA LIEBERMAN RN - 12/10/2014 15:04 CDT Psycho/Emotional Affect/Behavior : Calm, Cooperative, Appropriate Pain Symptoms : No MICHAELA LIEBERMAN RN - 12/10/2014 15:04 CDT Source: [facility] Document Id: [id number] CDT!14 documented in this encounter Miscellaneous Notes Miscellaneous - Conversion, Historical Provider Ser - 01/18/2016 3:21 PM CDT Schedule Follow-Up Visit January 18, 2016 CHERRY ALCANTARA [facility] [id number] Dear CHERRY ALCANTARA, APPOINTMENT REMINDER: We have had two unsuccessful attempts to contact you via phone. Our records indicate that it is timefor you to be seen for an Annual Gynecological Exam with [facility]. You may call our office at [phone] to schedule an appointment with Women's [facility]. Please disregard this notice if you have already made an appointment. [facility] Sincerely, RAYMON MCNULTY Electronic Signature Electronically Signed By: RAYMON MCNULTY On: January 18, 2016 This document has images extracted. Source: [facility] [employer] Document Id: [id number] Miscellaneous - Conversion, Historical Provider Ser - 12/13/2014 1:00 PM CDT Coding Summary-Paper Based CODING DATE: 02/03/2015 FINAL RW [facility] STATUS: * Discharged to Home or Self Care PAYOR: [facility] Grouper: 775 MS-DRG Vaginal delivery w/o complicating diagnoses ADMIT DX: V22.1 Supervision of Other Normal REASON FOR VISIT DX: FINAL DX: PRINCIPAL: 664.01 N First-Degree Perineal Laceration During Delivery, Delivered, with or without Mention of Antepartum Condition SECONDARY: 642.31 N Transient Hypertension of , Delivered, with or without Mention of Antepartum Condition 648.91 Y Other Current Conditions Classifiable Elsewhere, Complicating , Childbirth, or the Puerperium, Delivered, with or without Mention of Antepartum Condition V02.51 Carrier or Suspected Carrier of Group B Streptococcus V27.0 Mother with Single Liveborn PROCEDURES DOCTOR NAME DATE 73.59 Other Manually Assisted CANDIE ARMENDARIZ 12/11/2014 Delivery NOTE: The code number assigned matches the documented diagnosis and / or procedure in the patient's chart. However, the narrative phrase printed from the coding software may appear abbreviated, or result in slightly different terminology. Coded By: CASEY BUTT Date Saved: 12/26/2014 07:13 am Source: [facility] [employer] Document Id: [id number] Miscellaneous - Erika Dolan, C.N.APedro - 12/13/2014 7:08 AM CDT Hospital Patient Education The following Patient Education Materials have been given to the patient: Patient Education Materials: Source: [facility] [employer] Document Id: [id number] Miscellaneous - Kaylee Rivas R.N. - 12/12/2014 10:54 PM CDT Communication Note Communication Note Entered On: 12/12/2014 22:56 CDT Performed On: 12/12/2014 22:54 CDT by KAYLEE RIVAS RN Communication Subject of Note : M.D. Notification Assessment Communication Note : MD updated on pt current blood pressures and head to toe assesment. Intervention : New Orders Obtained Name of provider notified : VINICIUS PETER MD Name of provider notified d/t : 12/12/2014 22:56 CDT Response : Ok to monitor blood pressures according to protocol. KAYLEE RIVAS RN - 12/12/2014 22:54 CDT Source: [facility] [employer] Document Id: [id number] CDT!8 Miscellaneous - Kaylee Rivas R.N. - 12/12/2014 10:21 PM CDT Adult Activities of Daily Living Adult Activities of Daily Living Entered On: 12/12/2014 22:22 CDT Performed On: 12/12/2014 22:21 CDT by KAYLEE RIVAS RN ADLs I Activity Status ADL : Ambulating in torres, Ambulating in room Activity Assistance : Independent Ambulation Patient Effort : Good KAYLEE RIVAS RN - 12/12/2014 22:21 CDT ADLs II Standard Safety : Bed in low position, Call device within reach, ID band check, Non-Slip footwear, Rounds every 1 hour, Wheels locked KAYELE RIVAS RN - 12/12/2014 22:21 CDT Source: [facility] [employer] Document Id: [id number] CDT!7 Miscellaneous - Kaylee Rivas R.N. - 12/12/2014 9:18 PM CDT Communication Note Communication Note Entered On: 12/12/2014 22:17 CDT Performed On: 12/12/2014 21:18 CDT by KAYLEE RIVAS RN Communication Subject of Note : M.D. Notification Assessment Communication Note : MD notified about pt increased systolic blood pressure above 150. Ptdenies headache and blurry vision with no clonus noted. Pt complains of central abdominal pain. Md updated on pt head to toe assesment. 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 KAYLEE RIVAS RN - 12/12/2014 22:14 CDT Source: [facility] [employer] Document Id: [id number] CDT!8 Deepthi - Shayy Teran R.N. - 12/12/2014 5:30 AM CDT Communication Note Communication Note Entered On: 12/12/2014 5:43 CDT Performed On: 12/12/2014 5:30 CDT by SHAYY TERAN RN Communication Assessment Communication Note : went to wake patient to feed baby. patient and baby sleeping well, patient declined wanting to feed baby at this time, wanting to wait until 0615 or later. Response : will attempt to wake patient again 0615 SHAYY TERAN RN - 12/12/2014 5:41 CDT Source: [facility] [employer] Document Id: [id number] CDT!4 Deepthi - Fabiana Srivastava R.N. - 12/12/2014 2:19 AM CDT Adult Pain Assessment Adult Pain Assessment Entered On: 12/12/2014 2:20 CDT Performed On: 12/12/2014 2:19 CDT by FABIANA SRIVASTAVA RN Pain Scale Pain Scale Verbal 0-10 : Open FABIANA SRIVASTAVA RN - 12/12/2014 2:19 CDT Pain Pain Assessment Grid Pain 1 Location : Abdomen Intensity : 4 Time Pattern : Intermittent Onset : Gradual Quality : Cramping Pain Radiation : No Aggravating Factors : Other: Alleviating Factors : Medication, Rest Associated Symptoms : None Interventions : Medications, Rest Comment : 600mg ibuprofen given at this time FABIANA SRIVASTAVA RN - 12/12/2014 2:19 CDT Source: [facility] Document Id: [id number] CDT!17 Deepthi - Gabrielle Reyna R.N. - 12/11/2014 3:15 PM CDT Neurovascular Assessment Lower Extremity Neurovascular Assessment Lower Extremity Entered On: 12/11/2014 15:55 CDT Performed On: 12/11/2014 15:15 CDT by GABRIELLE REYNA RN Lower Extremity Nail Bed Color Feet Grid Left Foot : Cisco Right Foot : Cisco GABRIELLE REYNA RN - 12/11/2014 15:55 CDT Capillary Refill Feet Grid Left Foot : < 2 seconds Right Foot : < 2 seconds GABRIELLE REYNA RN - 12/11/2014 15:55 CDT NV Lower Extremity Color Grid Left : Cisco Right : Cisco GABRIELLE REYNA RN - 12/11/2014 15:55 CDT NV Lower Extremity Temperature Grid Left : Warm Right : Warm GABRIELLE REYNA RN - 12/11/2014 15:55 CDT Lower Extremity Sensation NV Grid Medial/Lateral Surfaces Sole of Left Foot : Intact Medial/Lateral Surfaces Sole of Right Foot : Intact Web Space Between Great and Second Toe Left Foot : Intact Web Space Between Great and Second Toe Right Foot : Intact GABRIELLE REYNA RN - 12/11/2014 15:55 CDT Lower Extremity Strength NV Grid Plantar Flexion Left Foot : Normal 5 Plantar Flexion Right Foot : Normal 5 Dorsiflex Foot/Extend Toes Left : Normal 5 Dorsiflex Foot/Extend Toes Right : Normal 5 GABRIELLE REYNA RN - 12/11/2014 15:55 CDT Source: [facility] Document Id: [id number] CDT!24 Miscellaneous - Gabrielle Reyna R.N. - 12/11/2014 12:30 PM CDT Adult Activities of Daily Living Adult Activities of Daily Living Entered On: 12/11/2014 13:08 CDT Performed On: 12/11/2014 12:30 CDT by GABRIELLE REYNA RN ADLs I Patient Position : Sitting in bed (Comment: visiting with family, motrin given per pt request [GABRIELLE REYNA RN - 12/11/2014 13:08 CDT] ) GABRIELLE REYNA RN - 12/11/2014 13:08 CDT Source: [facility] Document Id: [id number] CDT!3 Miscellaneous - Alexis Kevin R.N. - 12/11/2014 5:15 AM CDT Adult Activities of Daily Living Adult Activities of Daily Living Entered On: 12/11/2014 5:48 CDT Performed On: 12/11/2014 5:15 CDT by ALEXIS KEVIN RN ADLs I Patient Position : Semi-Walsh's Activity Status ADL : Ambulating in room, Up with assistance Activity Assistance : Stand-by assistance ALEXIS KEVIN RN - 12/11/2014 5:48 CDT ADLs II Hygiene Assistance Grid Dara Care : Independent ALEXIS KEVIN RN - 12/11/2014 5:48 CDT Elimination Assistance Offered Q2H : Offered/Performed Standard Safety : Bed in low position, Call device within reach, ID band check, Night light, Non-Slip footwear, Rounds every 1 hour, Upper/Half-length side- rails up, Wheels locked ALEXIS KEVIN RN - 12/11/2014 5:48 CDT I&O Incont/BR : 1 ALEXIS KEVIN RN - 12/11/2014 5:48 CDT Source: [facility] Document Id: [id number] CDT!12 Miscellaneous - Alexis Kevin RDeepali - 12/11/2014 3:30 AM CDT Adult Activities of Daily Living Adult Activities of Daily Living Entered On: 12/11/2014 5:48 CDT Performed On: 12/11/2014 3:30 CDT by ALEXIS KEVIN RN ADLs I Patient Position : Semi-Walsh's Activity Status ADL : Ambulating in room, Up ad chana, Up with assistance Activity Assistance : Stand-by assistance ALEXIS KEVIN RN - 12/11/2014 5:45 CDT ADLs II Hygiene Assistance Grid Dara Care : Minimum assistance ALEXIS KEVIN RN - 12/11/2014 5:45 CDT Elimination Assistance Offered Q2H : Offered/Performed Standard Safety : Bed in low position, Call device within reach, ID band check, Night light, Non-Slip footwear, Rounds every 1 hour, Rounds every 2 hours, Upper/Half-length side-rails up, Wheels locked ALEXIS KEVIN RN - 12/11/2014 5:45 CDT I&O Incont/BR : 1 ALEXIS KEVIN RN - 12/11/2014 5:45 CDT Source: [employer] Document Id: [id number] CDT!12 Miscellaneous - Alexis Kevin R.N. - 12/11/2014 3:00 AM CDT Neurovascular Assessment Lower Extremity Neurovascular Assessment Lower Extremity Entered On: 12/11/2014 3:51 CDT Performed On: 12/11/2014 3:00 CDT by ALEXIS KEVIN RN Lower Extremity Nail Bed Color Feet Grid Left Foot : Cisco Right Foot : Cisco ALEXIS KEVIN RN - 12/11/2014 3:51 CDT Capillary Refill Feet Grid Left Foot : < 2 seconds Right Foot : < 2 seconds ALEXIS KEVIN RN - 12/11/2014 3:51 CDT NV Lower Extremity Color Grid Left : Cisco Right : Cisco ALEXIS KEVIN RN - 12/11/2014 3:51 CDT NV Lower Extremity Temperature Grid Left : Warm Right : Warm ALEXIS KEVIN RN - 12/11/2014 3:51 CDT Lower Extremity Central Pulses Grid Femoral Pulse, Left : 2+ Normal Femoral Pulse, Right : 2+ Normal ALEXIS KEVIN RN - 12/11/2014 3:51 CDT Lower Extremity Peripheral Pulses Grid Dorsalis Pedis Pulse, Left : 2+ Normal Dorsalis Pedis Pulse, Right : 2+ Normal LAEXIS KEVIN RN - 12/11/2014 3:51 CDT Source: [facility] [employer] Document Id: [id number] CDT!20 Miscellaneous - Alexis Kevin R.N. - 12/11/2014 1:02 AM CDT Labor & Delivery Chronology Document Has Been Updated Labor & Delivery Chronology Entered On: 12/11/2014 3:00 CDT Performed On: 12/11/2014 1:02 CDT by ALEXIS KEVIN RN L&D Chronology Labor Onset, Date/Time : 12/10/2014 13:30 CDT Date/Time of Membranes Rupture : 12/10/2014 21:30 CDT Rupture of Membranes : Artificial Amniotic Fluid : Clear Complete Cervical Dilation Date/Time : 12/10/2014 23:34 CDT Date/Time of : 12/11/2014 1:02 CDT Length of Labor, 1st Stage Hrs Calc : 10.07 HR Length of Labor, 1st Stage : 604 minute(s) Length of Labor, 2nd Stage Hrs Calc : 1.47 HR Length of Labor, 2nd Stage : 88 minute(s) Membrane Rupture to Delivery Hr Calc : 3.53 HR Membrane Rupture to Delivery-Total Time : 212 minute(s) Total Length of Labor Hr Calc : 11.53 HR Total Length of Labor : 692 minute(s) Placenta Delivery Date/Time : 12/11/2014 1:10 CDT Placenta : Intact Length of Labor, 3rd Stage : 8 minute(s) Premature Rupture of Membranes : No Prolonged Rupture of Membranes : No Precipitous Labor : No Prolonged Labor : No Type of Delivery : Augmentation, Vaginal delivery Medication/Method Used : Oxytocin Vaginal Delivery Type : Normal spontaneous vaginal delivery Episiotomy : No Laceration : Yes Laceration Type : 1st degree Anesthesia OB : Epidural Delivered By : CANDIE ARMENDARIZ MD Labor Nurse 1 : ALEXIS KEVIN RN Labor Nurse 2 : FABIANA SRIVASTAVA RN Sponge/Needle/Instrument Count Correct : Yes Count Correct RN Name : ALEXIS KEVIN RN Count Correct Staff Name : CANDIE ARMENDARIZ MD, NICHOLE L RN - 12/11/2014 2:56 CDT Past History History (As Of: 12/11/2014 03:00:50 CDT) - 3, Para Fullterm - 1, Para - , Abortions - , Para Living - 1 Delivery/Outcome Date: 10/10/2009 Gestation Age At : 39 weeks 2 days ; Full Gestation ; Delivery Method: Vaginal ; Gender: Female ; Weight: 8lb 13oz / 3997gm ; Outcome: Live ; Child Name: Alicia Delivery/Outcome Date: 11/27/2010 Delivery Method: Unknown ; Outcome: Multiple : No Sex : Female Condition : Alive Weight, Baby A : 3.310 kg(Converted to: 7 lb 5 oz) Length, Baby A : 48.26 cm(Converted to: 1 ft 7 inch(es), 19.00 inch(es)) ID Band Number : [id number] Score - 1 Minute : 8 Score - 2 Minute : 9 Cord Vessels : 3 Cord Blood Gases to Lab : Yes Presentation : Vertex ALEXIS KEVIN RN - 12/11/2014 2:56 CDT Source: [facility] [employer] Document Id: [id number] CDT!48 Deepthi - Alexis Kevin R.N. - 12/11/2014 12:55 AM CDT Heart Monitoring Heart Monitoring Entered On: 12/11/2014 5:38 CDT Performed On: 12/11/2014 0:55 CDT by ALEXIS KEVIN RN FHR, Prabhakar/Baby A Uterine Contraction Monitoring Method : Intrauterine pressure catheter Uterine Contraction Frequency : 3-6 Uterine Contraction Duration : 90 Uterine Contraction Intensity, Ext Palp : Moderate Uterine Contraction Rest Tone, Ext Palp : Soft FHR Monitoring Method : Electronic monitoring FHR Monitoring Frequency : Continuous FHR Baseline : 122 Heart Rate Reactive Prabhakar/Baby A : Yes FHR Baseline Description : Within normal limits FHR Tracing : Category 1 FHR Variability : Moderate variability Sinusoidal Prabhakar/Baby A : Yes FHR Accelerations : Present FHR Deceleration : Absent FHR Provider Present : Yes FHR Comment : patient began pushing at 0055 and IUPC was removed at this time. Viable female was born at 0102. ALEXIS KEVIN RN - 12/11/2014 5:35 CDT Source: [employer] Document Id: [id number] CDT!19 Deepthi - Alexis Kevin R.N. - 12/11/2014 12:30 AM CDT Heart Monitoring Heart Monitoring Entered On: 12/11/2014 5:35 CDT Performed On: 12/11/2014 0:30 CDT by ALEXIS KEVIN RN FHR, Prabhakar/Baby A Uterine Contraction Monitoring Method : External toco Uterine Contraction Frequency : 2.5-3 Uterine Contraction Duration : 90 Uterine Contraction Intensity, Ext Palp : Moderate Uterine Contraction Rest Tone, Ext Palp : Soft FHR Monitoring Method : Electronic monitoring FHR Monitoring Frequency : Continuous FHR Baseline : 120 Heart Rate Reactive Prabhakar/Baby A : Yes FHR Baseline Description : Within normal limits FHR Tracing : Category 1 FHR Variability : Moderate variability Sinusoidal Prabhakar/Baby A : No FHR Accelerations : Present FHR Deceleration : Absent ALEXIS KEVIN RN - 12/11/2014 5:32 CDT Source: [employer] Document Id: [id number] CDT!17 Miscellaneous - Shayy Teran R.NPedro - 12/11/2014 12:00 AM CDT Heart Monitoring Heart Monitoring Entered On: 12/11/2014 0:14 CDT Performed On: 12/11/2014 0:00 CDT by SHAYY TREAN RN R, Prabhakar/Baby A Uterine Contraction Monitoring Method : Intrauterine pressure catheter Uterine Contraction Frequency : 2-5 Uterine Contraction Duration : 60-180 sec. 80 mVu. (Comment: couplet x1. [SHAYY TERAN RN - 12/11/2014 0:14 CDT] ) FHR Monitoring Method : Electronic monitoring FHR Monitoring Frequency : Continuous FHR Baseline : 120 Heart Rate Reactive Prabhakar/Baby A : No FHR Baseline Description : Within normal limits FHR Tracing : Category 2 FHR Variability : Moderate variability Sinusoidal Prabhakar/Baby A : No FHR Accelerations : Absent FHR Deceleration : Late SHAYY TERAN RN - 12/11/2014 0:14 CDT Source: [employer] Document Id: [id number] CDT!15 Deepthi - Shayy Teran R.N. - 12/10/2014 11:45 PM CDT Heart Monitoring Heart Monitoring Entered On: 12/11/2014 0:14 CDT Performed On: 12/10/2014 23:45 CDT by SHAYY TERAN RN FHR, Prabhakar/Baby A Uterine Contraction Monitoring Method : Intrauterine pressure catheter Uterine Contraction Frequency : 2-3 Uterine Contraction Duration : 90-110 sec. 80 mVu FHR Monitoring Method : Electronic monitoring FHR Monitoring Frequency : Continuous FHR Baseline : 125 Heart Rate Reactive Prabhakar/Baby A : Yes FHR Baseline Description : Within normal limits FHR Tracing : Category 1 FHR Variability : Moderate variability Sinusoidal Prabhakar/Baby A : No FHR Accelerations : Present FHR Deceleration : Absent FHR Comment : RN at bedside. SHAYY TERAN RN - 12/11/2014 0:12 CDT [facility] Document Id: [id number] CDT!16 Deepthi - Shayy Teran R.N. - 12/10/2014 11:30 PM CDT Heart Monitoring Document Has Been Updated Heart Monitoring Entered On: 12/10/2014 23:38 CDT Performed On: 12/10/2014 23:30 CDT by SHAYY TERAN RN FHR, Prabhakar/Baby A Uterine Contraction Monitoring Method : Intrauterine pressure catheter Uterine Contraction Frequency : 2.5-3.5 Uterine Contraction Duration : 60-100 sec. 155 mVu FHR Monitoring Method : Electronic monitoring FHR Monitoring Frequency : Continuous FHR Baseline : 125 Heart Rate Reactive Prabhakar/Baby A : Yes FHR Baseline Description : Within normal limits FHR Tracing : Category 1 FHR Variability : Moderate variability Sinusoidal Prabhakar/Baby A : No FHR Accelerations : Present FHR Deceleration : Absent SHAYY TERAN RN - 12/10/2014 23:31 CDT FHR Comment : RN at bedside. SHAYY TERAN RN - 12/11/2014 2:51 CDT Source: [facility] [employer] Document Id: [id number] CDT!3 Miscelltulio - Shayy Teran R.N. - 12/10/2014 11:00 PM CDT Heart Monitoring Heart Monitoring Entered On: 12/10/2014 23:31 CDT Performed On: 12/10/2014 23:00 CDT by SHAYY TERAN RN FHR, Prabhakar/Baby A Uterine Contraction Monitoring Method : Intrauterine pressure catheter Uterine Contraction Frequency : 3-4 Uterine Contraction Duration : 70-90 sec. 135 mVu FHR Monitoring Method : Electronic monitoring FHR Monitoring Frequency : Continuous FHR Baseline : 125 Heart Rate Reactive Prabhakar/Baby A : No FHR Baseline Description : Within normal limits FHR Tracing : Category 1 FHR Variability : Moderate variability Sinusoidal Prabhakar/Baby A : No FHR Accelerations : Absent FHR Deceleration : Absent FHR Comment : sitting edge of bed for epidural replacement, poor EFM tracing. RN at bedside SHAYY TERAN RN - 12/10/2014 23:26 CDT [facility] Document Id: [id number] CDT!16 Miscellaneous - Alexis Kevin R.N. - 12/10/2014 11:00 PM CDT Neurovascular Assessment Lower Extremity Neurovascular Assessment Lower Extremity Entered On: 12/11/2014 3:50 CDT Performed On: 12/10/2014 23:00 CDT by ALEXIS KEVIN RN Lower Extremity Nail Bed Color Feet Grid Left Foot : Cisco Right Foot : Cisco ALEXIS KEVIN RN - 12/11/2014 3:50 CDT Capillary Refill Feet Grid Left Foot : < 2 seconds Right Foot : < 2 seconds AYESHA ALEXIS Cortez RN - 12/11/2014 3:50 CDT NV Lower Extremity Color Grid Left : Cisco Right : Cisco ALEXIS KEVIN RN - 12/11/2014 3:50 CDT NV Lower Extremity Temperature Grid Left : Warm Right : Warm ALEXIS KEVIN RN - 12/11/2014 3:50 CDT Lower Extremity Central Pulses Grid Femoral Pulse, Left : 2+ Normal Femoral Pulse, Right : 2+ Normal ADRIJET ALEXIS Cortez RN - 12/11/2014 3:50 CDT Lower Extremity Peripheral Pulses Grid Dorsalis Pedis Pulse, Left : 2+ Normal Dorsalis Pedis Pulse, Right : 2+ Normal ADRIJET ALEXIS Cortez RN - 12/11/2014 3:50 CDT Source: [employer] Document Id: [id number] CDT!20 Miscellaneous - Shayy Teran RDeepali - 12/10/2014 10:30 PM CDT Heart Monitoring Heart Monitoring Entered On: 12/10/2014 23:23 CDT Performed On: 12/10/2014 22:30 CDT by SHAYY TERAN RN FHR, Prabhakar/Baby A FHR Comment : RN at bedside. SHAYY TERAN RN - 12/10/2014 23:23 CDT Uterine Contraction Monitoring Method : Intrauterine pressure catheter Uterine Contraction Frequency : 4-5.5 Uterine Contraction Duration : 60-110 sec. 100 mVu FHR Monitoring Method : Electronic monitoring FHR Monitoring Frequency : Continuous FHR Baseline : 120 Heart Rate Reactive Prabhakar/Baby A : Yes FHR Baseline Description : Within normal limits FHR Tracing : Category 1 FHR Variability : Moderate variability Sinusoidal Prabhakar/Baby A : No FHR Accelerations : Present FHR Deceleration : Absent SHAYY TERAN RN - 12/10/2014 23:02 CDT Source: [employer] Document Id: [id number] CDT!3 Miscellaneous - Shayy Teran R.N. - 12/10/2014 10:00 PM CDT Heart Monitoring Heart Monitoring Entered On: 12/10/2014 23:02 CDT Performed On: 12/10/2014 22:00 CDT by SHAYY TERAN RN FHR, Prabhakar/Baby A Uterine Contraction Monitoring Method : Intrauterine pressure catheter Uterine Contraction Frequency : 5.5-7 Uterine Contraction Duration : 80-120 sec. 220 mVu. FHR Monitoring Method : Electronic monitoring FHR Monitoring Frequency : Continuous FHR Baseline : 125 Heart Rate Reactive Prabhakar/Baby A : Yes FHR Baseline Description : Within normal limits FHR Tracing : Category 2 FHR Variability : Moderate variability Sinusoidal Prabhakar/Baby A : No FHR Accelerations : Present FHR Deceleration : Variable FHR Provider Present : Yes FHR Comment : Dr. Armendariz [facility]. RN at bedside. SHAYY TERAN RN - 12/10/2014 22:57 CDT [facility] Document Id: [id number] CDT!17 Miscellaneous - Shayy Teran R.N. - 12/10/2014 9:30 PM CDT Heart Monitoring Heart Monitoring Entered On: 12/10/2014 22:57 CDT Performed On: 12/10/2014 21:30 CDT by SHAYY TERAN RN FHR, Prabhakar/Baby A Uterine Contraction Monitoring Method : External toco Uterine Contraction Frequency : toco adjusted FHR Monitoring Method : Electronic monitoring FHR Monitoring Frequency : Continuous FHR Baseline : 125 Heart Rate Reactive Prabhakar/Baby A : Yes FHR Baseline Description : Within normal limits FHR Tracing : Category 1 FHR Variability : Moderate variability Sinusoidal Prabhakar/Baby A : No FHR Accelerations : Present FHR Deceleration : Absent FHR Comment : RN at bedside. SHAYY TERAN RN - 12/10/2014 22:56 CDT [facility] Document Id: [id number] CDT!15 Miscellaneous - Shayy Teran R.N. - 12/10/2014 9:00 PM CDT Heart Monitoring Heart Monitoring Entered On: 12/10/2014 22:41 CDT Performed On: 12/10/2014 21:00 CDT by SHAYY TERAN RN FHR, Prabhakar/Baby A Uterine Contraction Monitoring Method : External toco Uterine Contraction Frequency : toco adjusted FHR Monitoring Method : Electronic monitoring FHR Monitoring Frequency : Continuous FHR Baseline : 135 Heart Rate Reactive Prabhakar/Baby A : Yes FHR Baseline Description : Within normal limits FHR Tracing : Category 1 FHR Variability : Moderate variability Sinusoidal Prabhakar/Baby A : No FHR Accelerations : Present FHR Deceleration : Absent FHR Comment : RN at bedside SHAYY TERAN RN - 12/10/2014 22:39 CDT Source: [employer] Document Id: [id number] CDT!15 Miscellaneous - Shayy Teran RPedroNPedro - 12/10/2014 8:30 PM CDT Heart Monitoring Heart Monitoring Entered On: 12/10/2014 22:39 CDT Performed On: 12/10/2014 20:30 CDT by SHAYY TERAN RN FHR, Prabhakar/Baby A FHR Comment : RN at bedside SHAYY TERAN RN - 12/10/2014 22:41 CDT Uterine Contraction Monitoring Method : External toco Uterine Contraction Frequency : x1 Uterine Contraction Duration : 100 FHR Monitoring Method : Electronic monitoring FHR Monitoring Frequency : Continuous FHR Baseline : 145 Heart Rate Reactive Prabhakar/Baby A : Yes FHR Baseline Description : Within normal limits FHR Tracing : Category 2 FHR Variability : Moderate variability Sinusoidal Prabhakar/Baby A : No FHR Accelerations : Present FHR Deceleration : Variable SHAYY TERAN RN - 12/10/2014 22:37 CDT Source: [employer] Document Id: [id number] CDT!3 Miscellaneous - Shayy Teran R.N. - 12/10/2014 8:00 PM CDT Heart Monitoring Heart Monitoring Entered On: 12/10/2014 22:37 CDT Performed On: 12/10/2014 20:00 CDT by SHAYY TERAN RN FHR, Prabhakar/Baby A FHR Comment : RN at bedside SHAYY TERAN RN - 12/10/2014 22:42 CDT Uterine Contraction Monitoring Method : External toco Uterine Contraction Frequency : x3 Uterine Contraction Duration : 50-70 FHR Monitoring Method : Electronic monitoring FHR Monitoring Frequency : Continuous FHR Baseline : 130 Heart Rate Reactive Prabhakar/Baby A : Yes FHR Baseline Description : Within normal limits FHR Tracing : Category 1 FHR Variability : Moderate variability Sinusoidal Prabhakar/Baby A : No FHR Accelerations : Present FHR Deceleration : Absent SHAYY TERAN RN - 12/10/2014 22:34 CDT Source: [employer] Document Id: [id number] CDT!3 Miscellaneous - Alexis Kevin R.N. - 12/10/2014 7:58 PM CDT Neurovascular Assessment Lower Extremity Neurovascular Assessment Lower Extremity Entered On: 12/10/2014 19:58 CDT Performed On: 12/10/2014 19:58 CDT by ALEXIS KEVIN RN Lower Extremity Nail Bed Color Feet Grid Left Foot : Cisco Right Foot : Cisco ALEXIS KEVIN RN - 12/10/2014 19:58 CDT Capillary Refill Feet Grid Left Foot : < 2 seconds Right Foot : < 2 seconds CAROLYNJET ALEXIS Cortez RN - 12/10/2014 19:58 CDT NV Lower Extremity Color Grid Left : Cisco Right : Cisco ALEXIS EKVIN RN - 12/10/2014 19:58 CDT NV Lower Extremity Temperature Grid Left : Warm Right : Warm ALEXIS KEVIN Dana RN - 12/10/2014 19:58 CDT Lower Extremity Central Pulses Grid Femoral Pulse, Left : 2+ Normal Femoral Pulse, Right : 2+ Normal ALEXIS KEVIN Dana RN - 12/10/2014 19:58 CDT Lower Extremity Peripheral Pulses Grid Dorsalis Pedis Pulse, Left : 2+ Normal Dorsalis Pedis Pulse, Right : 2+ Normal ADRIALEXIS CHAUDHARY Dana RN - 12/10/2014 19:58 CDT Source: [employer] Document Id: [id number] CDT!20 Miscellaneous - Shayy Teran RDeepali - 12/10/2014 7:30 PM CDT Heart Monitoring Heart Monitoring Entered On: 12/10/2014 22:34 CDT Performed On: 12/10/2014 19:30 CDT by SHAYY TERAN RN FHR, Prabhakar/Baby A FHR Comment : RN at bedside SHAYY TERAN RN - 12/10/2014 22:42 CDT Uterine Contraction Monitoring Method : External toco Uterine Contraction Frequency : none FHR Monitoring Method : Electronic monitoring FHR Monitoring Frequency : Continuous FHR Baseline : 130 Heart Rate Reactive Prabhakar/Baby A : Yes FHR Baseline Description : Within normal limits FHR Tracing : Category 1 FHR Variability : Moderate variability Sinusoidal Prabhakar/Baby A : No FHR Accelerations : Present FHR Deceleration : Absent SHAYY TERAN RN - 12/10/2014 22:31 CDT Source: [employer] Document Id: [id number] CDT!3 Deepthi - Michaela Lieberman R.N. - 12/10/2014 7:00 PM CDT Heart Monitoring Heart Monitoring Entered On: 12/10/2014 19:04 CDT Performed On: 12/10/2014 19:00 CDT by MICHAELA LIEBERMAN RN FHR, Prabhakar/Baby A Uterine Contraction Monitoring Method : External toco Uterine Contraction Frequency : not tracing, toco readjusted post epidural plcmnt Uterine Contraction Rest Tone, Ext Palp : Soft FHR Monitoring Method : Electronic monitoring FHR Monitoring Frequency : Continuous FHR Baseline : 140 Heart Rate Reactive Prabhakar/Baby A : No FHR Baseline Description : Within normal limits FHR Tracing : Category 1 FHR Variability : Moderate variability Sinusoidal Prabhakar/Baby A : No FHR Accelerations : Absent FHR Deceleration : Absent FHR Comment : Resting in left lateral position post epidural placement MICHAELA LIEBERMAN RN - 12/10/2014 19:03 CDT Source: [employer] Document Id: [id number] CDT!16 Michaela Fair R.N. - 12/10/2014 6:30 PM CDT Heart Monitoring Heart Monitoring Entered On: 12/10/2014 18:40 CDT Performed On: 12/10/2014 18:30 CDT by MICHAELA LIEBERMAN RN FHR, Prabhakar/Baby A Uterine Contraction Monitoring Method : External toco Uterine Contraction Frequency : 2-4.5 Uterine Contraction Duration : 40-60 Uterine Contraction Intensity, Ext Palp : Moderate Uterine Contraction Rest Tone, Ext Palp : Soft FHR Monitoring Method : Electronic monitoring FHR Monitoring Frequency : Continuous FHR Baseline : 120 Heart Rate Reactive Prabhakar/Baby A : Yes FHR Baseline Description : Within normal limits FHR Tracing : Category 1 FHR Variability : Moderate variability Sinusoidal Prabhakar/Baby A : No FHR Accelerations : Present FHR Deceleration : Absent FHR Comment : Anesthesia here now as patient requesting Epidural MICHAELA LIEBERMAN RN - 12/10/2014 18:38 CDT Source: [employer] Document Id: [id number] CDT!18 Miscelltulio - Michaela Lieberman R.N. - 12/10/2014 5:30 PM CDT Heart Monitoring Heart Monitoring Entered On: 12/10/2014 18:16 CDT Performed On: 12/10/2014 17:30 CDT by MICHAELA LIEBERMNA RN FHR, Prabhakar/Baby A Uterine Contraction Monitoring Method : External toco Uterine Contraction Frequency : Not tracing, toco readjusted Uterine Contraction Intensity, Ext Palp : Moderate Uterine Contraction Rest Tone, Ext Palp : Soft FHR Monitoring Method : Electronic monitoring FHR Monitoring Frequency : Continuous FHR Baseline : 125 Heart Rate Reactive Prabhakar/Baby A : Yes FHR Baseline Description : Within normal limits FHR Tracing : Category 1 FHR Variability : Moderate variability Sinusoidal Prabhakar/Baby A : No FHR Accelerations : Present FHR Deceleration : Absent MICHAELA LIEBERMAN RN - 12/10/2014 18:16 CDT Source: [employer] Document Id: [id number] CDT!16 Miscellaneous - Michaela Lieberman RPedroN. - 12/10/2014 5:00 PM CDT Heart Monitoring Heart Monitoring Entered On: 12/10/2014 17:26 CDT Performed On: 12/10/2014 17:00 CDT by MICHAELA LIEBERMAN RN FHR, Prabhakar/Baby A Uterine Contraction Monitoring Method : External toco Uterine Contraction Frequency : 1.5-3 Uterine Contraction Duration : 30-100 Uterine Contraction Intensity, Ext Palp : Moderate Uterine Contraction Rest Tone, Ext Palp : Soft FHR Monitoring Method : Electronic monitoring FHR Monitoring Frequency : Continuous FHR Baseline : 125 Heart Rate Reactive Prabhakar/Baby A : Yes FHR Baseline Description : Within normal limits FHR Tracing : Category 1 FHR Variability : Moderate variability Sinusoidal Prabhakar/Baby A : No FHR Accelerations : Present FHR Deceleration : Absent MICHAELA LIEBERMAN RN - 12/10/2014 17:24 CDT Source: [employer] Document Id: [id number] CDT!17 Deepthi - Michaela Lieberman R.N. - 12/10/2014 4:30 PM CDT Heart Monitoring Heart Monitoring Entered On: 12/10/2014 17:24 CDT Performed On: 12/10/2014 16:30 CDT by MICHAELA LIEBERMAN RN FHR, Prabhakar/Baby A Uterine Contraction Monitoring Method : External toco Uterine Contraction Frequency : 3-8 Uterine Contraction Duration : 40-150 Uterine Contraction Intensity, Ext Palp : Moderate Uterine Contraction Rest Tone, Ext Palp : Soft FHR Monitoring Method : Electronic monitoring FHR Monitoring Frequency : Continuous FHR Baseline : 130 Heart Rate Reactive Prabhakar/Baby A : Yes FHR Baseline Description : Within normal limits FHR Tracing : Category 1 FHR Variability : Moderate variability Sinusoidal Prabhakar/Baby A : No FHR Accelerations : Present FHR Deceleration : Absent MICHAELA LIEBERMAN RN - 12/10/2014 17:23 CDT Source: [employer] Document Id: [id number] CDT!17 Deepthi - Michaela Lieberman R.N. - 12/10/2014 4:00 PM CDT Heart Monitoring Heart Monitoring Entered On: 12/10/2014 16:00 CDT Performed On: 12/10/2014 16:00 CDT by MICHAELA LIEBERMAN RN FHR, Prabhakar/Baby A Uterine Contraction Monitoring Method : External toco Uterine Contraction Frequency : 2-.3.5 Uterine Contraction Duration : 30-90 Uterine Contraction Intensity, Ext Palp : Moderate Uterine Contraction Rest Tone, Ext Palp : Soft FHR Monitoring Method : Electronic monitoring FHR Monitoring Frequency : Continuous FHR Baseline : 120 Heart Rate Reactive Prabhakar/Baby A : Yes FHR Baseline Description : Within normal limits FHR Tracing : Category 1 FHR Variability : Moderate variability Sinusoidal Prabhakar/Baby A : No FHR Accelerations : Present FHR Deceleration : Absent FHR Comment : First dose of PCN infusing now MICHAELA LIEBERMAN RN - 12/10/2014 15:59 CDT Source: [employer] Document Id: [id number] CDT!18 Miscellaneous - Michaela Lieberman R.N. - 12/10/2014 3:30 PM CDT Heart Monitoring Heart Monitoring Entered On: 12/10/2014 15:47 CDT Performed On: 12/10/2014 15:30 CDT by MICHAELA LIEBERMAN RN FHR, Prabhakar/Baby A Uterine Contraction Monitoring Method : External toco Uterine Contraction Frequency : 2-5 Uterine Contraction Duration : 50-100 Uterine Contraction Intensity, Ext Palp : Moderate Uterine Contraction Rest Tone, Ext Palp : Soft FHR Monitoring Method : Electronic monitoring FHR Monitoring Frequency : Continuous FHR Baseline : 120 Heart Rate Reactive Prabhakar/Baby A : Yes FHR Baseline Description : Within normal limits FHR Tracing : Category 1 FHR Variability : Moderate variability Sinusoidal Prabhakar/Baby A : No FHR Accelerations : Present FHR Deceleration : Absent MICHAELA LIEBERMAN RN - 12/10/2014 15:39 CDT Source: [employer] Document Id: [id number] CDT!17 Miscellaneous - Michaela Lieberman RPedroN. - 12/10/2014 3:00 PM CDT Heart Monitoring Heart Monitoring Entered On: 12/10/2014 15:10 CDT Performed On: 12/10/2014 15:00 CDT by LEXVOLD, MICHAELA RN FHR, Prabhakar/Baby A Uterine Contraction Monitoring Method : External toco Uterine Contraction Frequency : 2.5-5 Uterine Contraction Duration : 40-100 Uterine Contraction Intensity, Ext Palp : Moderate Uterine Contraction Rest Tone, Ext Palp : Soft FHR Monitoring Method : Electronic monitoring FHR Monitoring Frequency : Continuous FHR Baseline : 125 Heart Rate Reactive Prabhakar/Baby A : Yes FHR Baseline Description : Within normal limits FHR Tracing : Category 1 FHR Variability : Moderate variability Sinusoidal Prabhakar/Baby A : No FHR Accelerations : Present FHR Deceleration : Absent MICHAELA LIEBERMAN RN - 12/10/2014 15:09 CDT Source: [employer] Document Id: [id number] CDT!17 Miscellaneous - Michaela Lieberman R.N. - 12/10/2014 2:30 PM CDT Heart Monitoring Heart Monitoring Entered On: 12/10/2014 15:09 CDT Performed On: 12/10/2014 14:30 CDT by MICHAELA LIEBERMAN RN FHR, Prabhakar/Baby A Uterine Contraction Monitoring Method : External toco Uterine Contraction Frequency : 4-5 Uterine Contraction Duration : 40-70 Uterine Contraction Intensity, Ext Palp : Moderate Uterine Contraction Rest Tone, Ext Palp : Soft FHR Monitoring Method : Electronic monitoring FHR Monitoring Frequency : Continuous FHR Baseline : 130 Heart Rate Reactive Prabhakar/Baby A : No FHR Baseline Description : Within normal limits FHR Tracing : Category 1 FHR Variability : Moderate variability Sinusoidal Prabhakar/Baby A : No FHR Accelerations : Absent FHR Deceleration : Absent MICHAELA LIEBERMAN RN - 12/10/2014 15:06 CDT Source: [employer] Document Id: [id number] CDT!17 Miscellaneous - Michaela Lieberman RPedroN. - 12/10/2014 2:00 PM CDT Heart Monitoring Heart Monitoring Entered On: 12/10/2014 14:23 CDT Performed On: 12/10/2014 14:00 CDT by MICHAELA LIEBERMAN RN FHR, Prabhakar/Baby A Uterine Contraction Monitoring Method : External toco Uterine Contraction Frequency : 2-6 Uterine Contraction Duration : 30-100 Uterine Contraction Intensity, Ext Palp : Moderate Uterine Contraction Rest Tone, Ext Palp : Soft FHR Monitoring Method : Electronic monitoring FHR Monitoring Frequency : Continuous FHR Baseline : 130 Heart Rate Reactive Prabhakar/Baby A : Yes FHR Baseline Description : Within normal limits FHR Tracing : Category 1 FHR Variability : Moderate variability Sinusoidal Prabhakar/Baby A : No FHR Accelerations : Present FHR Deceleration : Absent MICHAELA LIEBERMAN RN - 12/10/2014 14:21 CDT Source: [employer] Document Id: [id number] CDT!17 Miscellaneous - Michaela Lieberman RPedroNPedro - 12/10/2014 1:59 PM CDT Basic Admission Information Document Has Been Updated Basic Admission Information Entered On: 12/10/2014 13:59 CDT Performed On: 12/10/2014 13:59 CDT by MICHAELA LIEBERMAN RN Vital Signs Temperature Core : 37.1 DegC(Converted to: 98.8 DegF) Apical Heart Rate : 90 /min Respiratory Rate : 18 /min Systolic Blood Pressure : 135 mmHg Diastolic Blood Pressure : 81 mmHg NIBP Mean : 99 mmHg Oxygen Therapy : Room air Height : 179 cm(Converted to: 5 ft 10 inch(es)) MICHAELA LIEBERMAN RN - 12/10/2014 13:59 CDT Allergy Rule (As Of: 12/10/2014 13:59:58 CDT) Allergies (Active) No Known Medication Allergies Comments: Comment 1: NO KNOWN DRUG ALLERGIES ; Created By: Contributor[employer]system [facility]_[email or web address]_SYS; Reaction Status: Active ; Category: Drug ; Substance: No Known Medication Allergies ; Type: Unknown ; Updated By: [employer]_HX_ALRG_SYS; Reviewed Date: 12/10/2014 13:47 CDT Valuables/Belongings Room Orientation/Facility Policy Reviewed : Yes Home Medication Disposition : None brought in with patient MICHAELA LIEBERMAN RN - 12/10/2014 13:59 CDT Source: [facility] [employer] Document Id: [id number] CDT!13 documented in this encounter Plan of Treatment Not on filedocumented as of this encounter Procedures Procedure Name Priority Date/Time Associated Comments Diagnosis CBC WITHOUT Routine 12/12/2014 10:16 Results for this DIFFERENTIAL, B PM CDT procedure ar e in the results section. COMPREHENSIVE METABOLIC Routine 12/12/2014 10:16 Results for this PANEL, S/P PM CDT procedure are i n the results section. HEMOGLOBIN, B Routine 12/11/2014 6:47 Results for this AM CDT procedure are i n the results section. ALANINE AMINOTRANSFERASE Routine 12/10/2014 9:37 Results for this (ALT), S/P PM CDT procedure are i n the results section. ASPARTATE Routine 12/10/2014 9:37 Results for this AMINOTRANSFERASE (AST), PM CDT proc edure are in S/P the results section. PROT/CREAT RATIO URINE Routine 12/10/2014 9:35 Re sults for this PM CDT procedure are i n the results section. AUTOMATED DIFFERENTIAL, Routine 12/10/2014 3:27 R esults for this B PM CDT procedure are i n the results section. CBC WITH DIFFERENTIAL, B Routine 12/10/2014 3:27 Results for this PM CDT procedure are i n the results section. ABSC GEL Routine 12/10/2014 3:22 Results for this PM CDT procedure are i n the results section. ABORH, RBC Routine 12/10/2014 3:22 Results for this PM CDT procedure are i n the results section. documented in this encounter Results (ABNORMAL) CBC without Differential (12/12/2014 10:16 PM CDT) P athologist Signature Hematocrit 32.0 (L) 34.9 - 44.5 POWERCHART Hemoglobin 10.5 (L) 12.0 - 15.5 POWERCHART GDL Comment: repeat MCV 97.3 82.0 - 98.0 FL POWERCHART Platelet Count 256 150 - 450 X109L POWERCHAR T Erythrocytes 3.29 (L) 3.90 - 5.03 [id number] POWERCHA RT HX RDW 15.0 11.9 - 15.5 POWERCHART Leukocytes 12.8 (H) 3.5 - 10.5 X109L POWERCHART Specimen (Source) Anatomical Collection Method Collection Time Re ceived Time Location / / Volume Laterality Blood 12/12/2014 10:16 PM CDT Vinicius Peter M.D. LAB BLOOD ADD-ON Performing Organization Address City/State/ZIP Code Phon e Number POWERCHART (ABNORMAL) CMP (Comprehensive Metabolic Panel) (12/12/2014 10:16 PM CDT) [facility] gist Method Time Signature Anion Gap 14 10 - 20 POWERCHART MMOLL Alkaline 75 52 - 144 POWERCHART Phosphatase, S UL Alanine 14 7 - 45 UL POWERCHART Amniotransferase, LD Aspartate 16 8 - 43 UL POWERCHART Aminotransferase (AST), S Bilirubin, Total, S 0.1 0.1 - 1.0 POWERCHART MGDL BUN (Blood Urea 16 6 - 21 POWERCHART Nitrogen), S MGDL Chloride, S 107 98 - 107 POWERCHART MMOLL CO2 Total 23 22 - 29 POWERCHART MMOLL Creatinine, S 0.70 0.60 - POWERCHART 1.10 MGDL Total Protein, S 5.4 (L) 6.3 - 7.9 POWERCHART GDL Glucose 114 70 - 139 POWERCHART MGDL Calcium, Total, S 8.6 8.6 - POWERCHART 10.3 MGDL Sodium, S 144 135 - 145 POWERCHART MMOLL Potassium, S 4.1 3.6 - 5.2 POWERCHART MMOLL Albumin, S 3.0 (L) 3.5 - 5.0 POWERCHART GDL HXeGFR (MDRD) >60 >=60 POWERCHART [id number] Comment: Results are in mL/min/1.73m CKD Stage I: ? GFR > 90 CKD Stage II: ?GFR 60 to 89 CKD Stage III: ? GFR 30 to 59 CKD Stage IV: ? GFR 15 to 29 CKD Stage V: ?GFR < 15 or Dialysi s eGFR Black/ >60 >=60 [id number] POWERCHART Specimen (Source) Anatomical Collection Method Collection Time Re ceived Time Location / / Volume Laterality Blood 12/12/2014 10:16 PM CDT Vinicius Peter M.D. LAB BLOOD ADD-ON Performing Organization Address City/State/ZIP Code Phon e Number POWERCHART (ABNORMAL) Hemoglobin (12/11/2014 6:47 AM CDT) athologist Signature Hemoglobin 10.4 (L) 12.0 - 15.5 POWERCHART GDL Specimen (Source) Anatomical Collection Method Collection Time Re ceived Time Location / / Volume Laterality Blood 12/11/2014 6:47 AM CDT Candie Armendariz M.D. LAB BLOOD ADD-ON Performing Organization Address City/[facility]/ZIP Code Phon e Number POWERCHART ALT (Alanine Aminotransferase) (12/10/2014 9:37 PM CDT) athologist Signature Alanine 13 7 - 45 UL POWERCHART Amniotransferas e, LD Specimen (Source) Anatomical Collection Method Collection Time Re ceived Time Location / / Volume Laterality Blood 12/10/2014 9:37 PM CDT Candie Armendariz M.D. LAB BLOOD ADD-ON Performing Organization Address City/[facility]/ZIP Code Phon e Number POWERCHART AST (Aspartate Aminotransferase) (12/10/2014 9:37 PM CDT) [facility] gist Method Time Signature Aspartate 15 8 - 43 UL POWERCHART Aminotransferase (AST), S Specimen (Source) Anatomical Collection Method Collection Time Re ceived Time Location / / Volume Laterality Blood 12/10/2014 9:37 PM CDT Candie Armendariz M.D. LAB BLOOD ADD-ON Performing Organization Address City/[facility]/ZIP Code Phon e Number POWERCHART (ABNORMAL) Prot/Creat Ratio Urine (12/10/2014 9:35 PM CDT) P athologist Signature Creatinine, 78.3 MGDL POWERCHART Random, U Comment: No established reference values for random urine samples. Protein, U 13 MGDL POWERCHART Protein/Creatinine Ratio 0.17 (H) 0.00 - 0.15 MGMG POWERCHART Specimen (Source) Anatomical Collection Method Collection Time Re ceived Time Location / / Volume Laterality Urine 12/10/2014 9:35 PM CDT Candie Armendariz M.D. LAB URINE ORDERABLES Performing Organization Address City/[facility]/ZIP Code Phon e Number POWERCHART (ABNORMAL) Automated Differential (12/10/2014 3:27 PM CDT) Patholo gist Method Time Signature Absolute 13.05 (H) 1.70 - POWERCHART Neutrophils 7.00 109L Monocytes 1.48 (H) 0.30 - POWERCHART 0.90 X109L Eosinophils 0.11 0.05 - POWERCHART 0.50 X109L Absolute 0.03 0.00 - POWERCHART Basophil 0.30 X109L Lymphocytes 3.09 (H) 0.90 - POWERCHART 2.90 X109L Specimen Anatomical Collection Method Collection Time Receive d Time (Source) Location / / Volume Laterality Blood 12/10/2014 3:27 PM 201 5 3:27 CDT PM CDT Candie Armendariz M.D. LAB BLOOD ADD-ON Performing Organization Address City/[facility] Phon e Number POWERCHART (ABNORMAL) CBC with Differential (12/10/2014 3:27 PM CDT) Analysis Performed At Patho logist Time Signature Hematocrit 38.2 34.9 - POWERCHART 44.5 Hemoglobin 12.9 12.0 - POWERCHART 15.5 GDL MCV 93.4 82.0 - POWERCHART 98.0 FL Platelet Count 320 150 - 450 POWERCHART X109L Erythrocytes 4.09 3.90 - POWERCHART 5.03 [id number] HX RDW 15.0 11.9 - POWERCHART 15.5 Leukocytes 17.8 (H) 3.5 - 10.5 POWERCHART X109L Specimen (Source) Anatomical Collection Method Collection Time Re ceived Time Location / / Volume Laterality Blood 12/10/2014 3:27 PM CDT Candie Armendariz M.D. LAB BLOOD ADD-ON Performing Organization Address City/[facility] Phon e Number POWERCHART ABSC GEL (12/10/2014 3:22 PM CDT) Patholo gist Method Time Signature HX ABSC Gel Negative ABSC POWERCHART Specimen (Source) Anatomical Collection Method Collection Time Re ceived Time Location / / Volume Laterality 12/10/2014 3:22 PM CDT Candie Armendariz M.D. LAB HISTORICAL ORDERS Performing Organization Address City/State/ZIP Code Phon e Number POWERCHART ABO/Rh (12/10/2014 3:22 PM CDT) P athologist Signature ABORh Interp A POS POWERCHART Specimen (Source) Anatomical Collection Method Collection Time Re ceived Time Location / / Volume Laterality 12/10/2014 3:22 PM CDT Candie Armendariz M.D. LAB BLOOD BANK TEST ORDERABL ES Performing Organization Address City/State/ZIP Code Phon e Number POWERCHART documented in this encounter Visit Diagnoses Not on filedocumented in this encounter Care Teams C Unix Developer Relationship Specialty Start Date End Date Gabrielle Jara M.D. PCP - General Family Medicine 10/04/[address] [place] [address] documented as of this encounter
--- OUTSIDE RECORDS SUMMARY | 2021-11-21 03:04 | XMS_ITS | Encounter Summary ---
:1990 Author Organization [facility] Address [address] [place] [address] Care Team Providers Name Role Phone Gabrielle Jara M.D. Primary Care Provider Encounter Details Date Type Department Care Team Description 01/29/2017 Hospital Encounter HX [facility] Liam Agrawal M.D. [address] [place] [phone] (Wo rk) Social History Tobacco Use Types Packs/Day Years Used Date Smoking Tobacco: Former Sex Assigned at Date Recorded Not on file documented as of this encounter Last Filed Vital Signs Vital Sign Reading Time Taken Comments Blood Pressure 132/88 01/29/2017 12:46 PM CDT Pulse 89 01/29/2017 12:46 PM CDT Temperature - - Respiratory Rate 18 01/29/2017 12:46 PM CDT Oxygen Saturation - - Inhaled Oxygen Concentration - - Weight 88.2 kg (194 lb 7.1 oz) 01/29/2017 12:46 PM CDT Height 179 cm (5' 10.47) 01/29/2017 12:46 PM CDT Body Mass Index 27.53 01/29/2017 12:46 PM CDT documented in this encounter Progress Notes Rianna Agrawal M.D. - 01/29/2017 3:31 PM CDT Clinic Full Note CHIEF COMPLAINT/REASON FOR VISIT F/U pyelonephritis Fisihed antibiotics on Friday Vaginal discharge for 2 years Is on period now Discharge is bad smelling Painful sex HISTORY OF PRESENT ILLNESS Patient is a pleasant 26-year-old female who presents to the clinic today for follow-up regarding recent treatment for pyelonephritis. She completed her antibiotic course approximately 3 days ago. Symptoms have resolved. No flank pain, no dysuria. Happy with these results. She does report ongoing difficulty with menstrual cycle and flow. She has been having continuous although fluctuating in intensity vaginal blood flow since the of her daughter 2 years ago. She has noticed intermittent boutsof significant clotting. She does report the flow becoming lightheaded times although never completely ceasing. She denies lightheadedness dizziness headaches chest pain or palpitations. No significantfatigue. She also has noticed over the past few months significant foul-smelling discharge from the vaginal area as well as painful intercourse. She is looking for further evaluation with gynecology for her symptoms. MEDICATIONS etonogestrel, Implant, Once magnesium citrate, 50 mg, PO Misc Prescription, Probiotic twice daily multivitamin, 1 tab(s), PO, Daily ALLERGIES No Known Medication Allergies PAST MEDICAL HISTORY Chronic Acne vulgaris Headache Leak Amniotic Fluid Left kidney infection Pain Back From Preg Tobacco use Historical Decreased Fetus Movement Affecting Preg Management Oligohydramnios Antepartum PROCEDURES/SURGICAL HISTORY Mantoux test (05/16/2011), Myringotomy (2007), Tonsillectomy (1997), PE TUBES - 2 sets, 1 in [facility], [facility] (), TONSILLECTOMY - as a child (). SOCIAL HISTORY Date Time: 01/29/2017 12:46 Tobacco: Smoking Status: Current some day smoker Exposure: Other: Former smoker: quit 03/2014 Alcohol: Use: No Results Found Recreational Drugs: Use: None Type: No Results Found FAMILY HISTORY Father: Negative: Sister: Negative: Brother: Negative: Grandfather:Positive: CA - Renal cancer Uncle:Positive: Kidney stone Grandfather:Positive: [place] - Cancer of prostate SYSTEMS REVIEW As per HPI otherwise negative VITAL SIGNS T: 36.6 ??C (Core) HR: 89 RR: 18 BP: 132 / 88 HT: 179 cm WT: 88.2 kg BMI: 27.53 PHYSICAL EXAMINATION GENERAL: Patient is in no distress. Capable of full communication without difficulty. Patient is polite and cooperative. Appropriately dressed and normal hygiene. HEART: Regular rate and rhythm. No murmurs, gallops or rubs noted. LUNGS: Clear to auscultation bilaterally. No expiratory wheeze. No accessory muscles of respirationnoted. ABDOMEN: Nontender to palpation. No mass. PSYCH: Mood upbeat, pleasant. Affect is congruent. LAB RESULTS Hgb 14.7 IMPRESSION/REPORT/PLAN 1. Unspecified Dyspareunia Please refer to 2.. 2. Menometrorrhagia Patient's symptoms have been persistent and progressive of for a considerable amount of time. Have requested further evaluation with ultrasound and consult with gynecology for further diagnostic clarity greatly appreciate their assistance. Patient has pyelonephritis has resolved at this time. Continue to monitor. Orders: Consult to [facility] Return Visit [facility] Med Extended US Endovaginal Electronically Signed By: RIANNA AGRAWAL MD On: 01/29/2017 03:35 PM [facility] Document Id: [id number] documented in this encounter Miscellaneous Notes Miscellaneous - Stephanie Ledesma, LPedroP.N. - 01/29/2017 12:46 PM CDT Adult Lpn Or Medical Assistant Intake/History Adult Lpn Or Medical Assistant Intake/History Entered On: 01/29/2017 12:50 CDT Performed On: 01/29/2017 12:46 CDT by STEPHANIE LEDESMA LPN Intake Chief Complaint : F/U pyelonephritis Fisihed antibiotics on Friday Vaginal discharge for 2 years Is on period now Discharge is bad smelling Painful sex LMP Date : 01/26/2017 Temperature Core : 36.6 DegC(Converted to: 97.9 DegF) Peripheral Pulse Rate : 89 /min Respiratory Rate : 18 /min Heart Rhythm : Regular Systolic Blood Pressure : 132 mmHg Diastolic Blood Pressure : 88 mmHg NIBP Mean : 103 mmHg BP Location : Left upper extremity Blood Pressure Cuff Size : Regular Height : 179 cm(Converted to: 5 ft 10 inch(es), 70 inch(es)) Actual Weight : 88.2 kg(Converted to: 194 lb 7 oz) Weight Source : Standing scale Dosing Weight Clinic : 88.2 kg Clinic BSA : 2.09 Body Mass Index : 27.53 kg/m2 STEPHANIE LEDESMA LPN - 01/29/2017 12:46 CDT General Info Information Given By : Patient Languages : Taiwanese Is Patient Female and 13-50 no hysterectomy : Yes Status : Patient denies Are you ? : No REGGIESTEPHANIE Acharya [facility] - 01/29/2017 12:46 CDT Subjective Pain Symptoms : No STEPHANIE LEDESMA [facility] - 01/29/2017 12:46 CDT Dependent Habits Exposure to Tobacco Smoke : Other: Former smoker: quit 03/2014 Smoking Status : Current some day smoker Tobacco 2A : Yes Tobacco Use/Currently Using : Yes Tobacco Use/Last 30 Days : Yes Tobacco Use/Last 12 months : Yes Type : Cigarettes: Less than 20 per day Tobacco Use/Advised to Quit : Yes STEPHANIE LEDESMA [facility] - 01/29/2017 12:46 CDT Caffeine Use Grid Caffeine Use : None Type : Coffee Frequency : Daily Amount : 1 STEPHANIE LEDESMA [facility] - 01/29/2017 12:46 CDT Recreational Drug Use Grid Drug Use : None STEPHANIE LEDESMA [facility] - 01/29/2017 12:46 CDT [facility] Document Id: [id number]!45 documented in this encounter Plan of Treatment Not on filedocumented as of this encounter Visit Diagnoses Not on filedocumented in this encounter Care Teams Bulk Plant Manager Relationship Specialty Start Date End Date Gabrielle Jara M.D. PCP - General Family Medicine 10/04/13 [address] [place] [address] documented as of this encounter
--- OUTSIDE RECORDS SUMMARY | 2021-11-21 03:04 | XMS_ITS | Encounter Summary ---
:1990 Author Organization [facility] Address [address] [place] [address] Care Team Providers Name Role Phone Gabrielle Jara M.D. Primary Care Provider Encounter Details Date Type Department Care Team Description 11/06/2014 Hospital Encounter HX [facility] Moy Brooke M.D. Social History Tobacco Use Types Packs/Day Years Used Date Smoking Tobacco: Never Assessed Sex Assigned at Date Recorded Not on file documented as of this encounter Last Filed Vital Signs Vital Sign Reading Time Taken Comments Blood Pressure 124/71 11/06/2014 1:34 PM CDT Pulse 75 11/06/2014 1:34 PM CDT Temperature - - Respiratory Rate 18 11/06/2014 1:34 PM CDT Oxygen Saturation - - Inhaled Oxygen Concentration - - Weight - - Height 179 cm (5' 10.47) 11/06/2014 1:34 PM CDT Body Mass Index - - documented in this encounter Discharge Summaries Miriam Turk, RPedroN. - 11/06/2014 2:06 PM CDT Hospital Discharge Medication List [address] [address] Discharge Medication List Name: CHERRY HALL Current Date: 11/06/2014 14:06:30 : 1990 12:00 AM [facility] Number: [id number] Patient Address: [address] [facility] [id number] Patient Primary Care Provider: Name: PCP, ELSEWHERE Phone: Discharge Diagnosis: [facility] [place] would like to thank you for allowing [...] the Following Medications: Medication list as of 11-06-14 14:06 Attention: If you have any medications at [...] Comment: Electronically Signed By: Signed On: Source: [facility] POWERCHART Document Id: [id number] Miriam Turk R.N. - 11/06/2014 2:06 PM CDT Hospital Discharge Instructions [address] [address] Patient Discharge Instructions Name: CHERRY HALL Current Date: 11/06/2014 14:06:31 : 1990 12:00 AM [facility] Number: [id number] Patient Address: [address] [id number] Patient Primary Care Provider: Name: PCP, ELSEWHERE Phone: Discharge Diagnosis: [facility] would like to thank you for allowing us to assist you with yourhealthcare needs. The following includes patient education materials and information regarding your injury/illness. Comment: Patient educated regarding warning signs of labor, preeclampsia, fever, rupture of membranes, leaking, decreased movement, vaginal bleeding, persistent nausea and vomiting, signsand symptoms of viral and bacterial infection. CHERRY [...] the Following Medications: Medication list as of 11-06-14 14:06 Attention: If you have any medications at [...] emergency. Comment: Electronically Signed By: Signed On: Your Upcoming Appointments Date Time Location Provider 11/07/2014 14:30 [facility] Ultrasound [facility] US RM 2 11/07/2014 15:15 [facility] OB OP [facility] 11/10/2014 15:00 [facility] [employer] [facility] Carlos PARIKH, Kristine Cortez Consider Using Patient Online Services Patient Online [...] if you dont have one. Go to [email or web address] and click on Create Your Account. Then, follow the directions to complete the online form. Youll be asked for your [facility] number which you can find at [...] felt your baby move all day. ?? [phone] [facility], [address] [place] [address], [place] [address]. All rights reserved. This information is not intended as a substitute for professional medical care. Always follow your healthcare professional's instructions. Understanding Labor Going into labor before your 37th week of is called labor. labor can causeyour baby to be born too soon. This can lead to a number of health problems that may affect your baby. Before labor, the cervix is thick and closed. In labor, the cervix begins to efface (thin) and dilate (open). Symptoms of Labor If you believe youre having labor, get medical help right away. But contractions alone dont mean youre in labor. What matters more are changes in your cervix (the lower end of the uterus). Symptoms of labor include: ?? Four or more contractions per hour ?? Strong contractions ?? Constant menstrual-like cramping ?? Low-back pain ?? Mucous or bloody vaginal discharge ?? Bleeding or spotting in the second or third trimester A pelvic exam can help your doctor find out whether your cervix has thinned and opened. Evaluating Labor Your doctor will try to find out whether youre in labor or whether youre just having contractions. He or she may watch you for a few hours. The following tests may be done: ?? Pelvic exam to see if your cervix has effaced (thinned) and dilated (opened) ?? Uterine activity monitoring to detect contractions ?? monitoring to check the health of your baby ?? Ultrasound to check your babys size and position ?? Amniocentesis to check how mature your babys lungs are Caring for Yourself At Home If you have contractions but your cervix is still thick and closed, your doctor may ask you to do the following at home: ?? Drink plenty of water. ?? Do fewer activities. ?? Rest in bed on your side. ?? Avoid intercourse and nipple stimulation. When to Call Your Doctor Call your doctor or other healthcare provider if you notice any of these: Four or more contractions per hour Bag of water breaks Bleeding or spotting If You Need Hospital Care labor often requires that you have hospital care and complete bed rest. You may have an IV (intravenous) line to get fluids. And you may be given pills or an injection to help prevent contractions. Finally, you may receive medication (corticosteroids) that helps your babys lungs mature more quickly. Are You At Risk? Any woman can have labor. It may start for no reason. But these risk factors can increase your chances: ?? Past labor or past early ?? Smoking and drug or alcohol use during ?? Multiple fetuses (twins or more) ?? Problems with the shape of the uterus ?? Bleeding during the The Dangers of A baby born too soon may have health problems. This is because the baby didnt have enough time to mature. The baby then is at risk of: ?? Not well ?? Having immature lungs ?? Bleeding in the brain ?? Dying Reaching Term Your goal is to get as close to term as you can before giving . The closer you get to term, thehigher your chance of having a healthy baby. Work with your healthcare provider. Together, you can take steps that may keep you from giving too early. ?? [id number] Patrice Dejesus, [address] [place] [address], [place] [address]. All rights reserved. This information is not intended as a substitute for professional medical care. Always follow your healthcare professional's instructions. This document has images extracted. Please consider using [employer] for all your patient education needs. Source: [facility] POWERCHART Document Id: [id number] documented in this encounter Progress Notes Kristi Brooke M.D. - 11/06/2014 12:00 AM CDT [id number] REVISION HISTORY November 09, 2014 at 3:24 p.m. - Duplicate report recreated to correct the document type by [employer] S: 24yo at 35weeks 3days her for evaluation of vaginal spotting after sexual activity O: VITAL SIGNS Temperature Core: 37.3 Peripheral Pulse Rate: 75 Respiratory Rate: 18 SpO2: 97 BLOOD PRESSURE Systolic Blood Pressure: 124 Diastolic Blood Pressure: 71 MEASUREMENTS Height: 179 Estimated Weight: 110.3 SVE: 2.50/-1 unchanged from 11/04/2014 evaluation EFM 130 +qa +mod hortencia no decels Jacona: irregular mild contractions A: Cat 1 tracing P: 1. d/c home 2. labor precautions discussed Signature Line Electronically Signed By: KRISTI BROOKE MD On: 11/06/2014 08:53 PM Kristi Brooke M.D./huey Electronically Signed By: KRISTI BROOKE MD On: 11/09/2014 03:27 PM Source: [facility] MHSDOLBEYNONRADSYS Document Id: [id number] documented in this encounter Nursing Notes Miriam Turk R.N. - 11/06/2014 2:12 PM CDT Nursing Discharge Summary Nursing Discharge Summary Entered On: 11/06/2014 14:15 CDT Performed On: 11/06/2014 14:12 CDT by MIRIAM TURK RN DC Information Discharged to : Home independently Current Home Treatments : None Home Equipment : None Professional Skilled Services : None Mode of Discharge : Ambulatory Discharge Transportation : Private vehicle Accompanied By : Nurse, Family Date/Time of Discharge : 11/06/2014 14:10 CDT MIRIAM TURK RN - 11/06/2014 14:12 CDT Education General Patient Education [employer] Topics : Discharge instructions/Medication list Individuals Taught : Patient, Significant other Barriers to Learning : None evident Teaching Method : Explanation, Printed materials Teaching Evaluation : Verbalizes understanding MIRIAM TURK RN - 11/06/2014 14:12 CDT Valuables/Belongings Room Orientation/Facility Policy Reviewed : Yes Belongings Sent Home With : the patient Home Medication Disposition : None brought in with patient MIRIAM TURK RN - 11/06/2014 14:12 CDT [facility] Document Id: [id number] CDT!22 Miriam Turk R.N. - 11/06/2014 1:59 PM CDT Ongoing Assessment Antepartum Ongoing Assessment Antepartum Entered On: 11/06/2014 14:32 CDT Performed On: 11/06/2014 13:59 CDT by MIRIAM TURK RN FHR, Prabhakar/Baby A Uterine Contraction Monitoring Method : External toco Uterine Contraction Frequency : irregular (pt. states only feels some contractions and not painful, just tightening and pressure) Uterine Contraction Intensity, Ext Palp : Mild Uterine Contraction Rest Tone, Ext Palp : [...] Deceleration : Absent FHR Provider Present : No FHR Provider Notified : Yes FHR Comment : Dr. Brooke called and given update and a report on patient status and complaints. Discharge order MIRIAM Weaver RN - 11/06/2014 14:15 CDT OB Exam Cervix Dilation : 2 Cervix Effacement : 50 Station : -2 Membrane Status : Intact Amniotic Fluid Amount : None Vaginal Discharge Description : Clear, Other: no spotting or blood noted on chux pad while here; very tiny speck of blood noted on gloves after exam Presenting Part : Vertex MIRIAM TURK RN - 11/06/2014 14:15 CDT Cardiovascular Antiembolism Device Yes/No : No MIRIAM TURK RN - 11/06/2014 14:15 CDT Psycho/Emotional Pain Symptoms : No MIRIAM TURK RN - 11/06/2014 14:15 CDT Safety Grid Vision, Hearing, Mobility Adequate to Meet Safety Needs : Yes MIRIAM TURK RN - 11/06/2014 14:15 CDT Source: [facility] POWERCHART Document Id: [id number] CDT!33 Miriam Turk RBrisa. - 11/06/2014 1:25 PM CDT Ongoing Assessment Antepartum Ongoing Assessment Antepartum Entered On: 11/06/2014 13:32 CDT Performed On: 11/06/2014 13:25 CDT by MIRIAM TURK RN Triage Chief Complaint : c/o small amount of spotting x3 while wiping after going to the bathroom Movement : Present Last Movement Date/Time Subjective : 11/06/2014 13:25 CDT Contractions, Subjective : No Urge To Push, Subjective : No Leaking Fluid, Subjective : No Vaginal Bleeding : Yes Vaginal Bleeding Amount, Subjective : Spotting Intensity : 0 Heart Rate : 150 /min Acute Respiratory or Cardiac Distress : No MIRIAM TURK RN - 11/06/2014 13:29 CDT Respiratory Respiratory Patient Stated Symptoms : None Respirations : Unlabored Respiratory Pattern : Regular All Lobes Breath Sounds : Clear Cough and Deep Breathe : Done Cough : None Sputum Amount : None Suction : None Airway : Patent MIRIAM TURK RN - 11/06/2014 13:42 CDT Cardiovascular CV Patient Stated Symptoms : None Heart Rhythm : Regular Antiembolism Device Yes/No : No Nail Bed Color : [place] Capillary Refill : Less than 2 seconds Edema Assessment : No Skin Color : Normal for ethnicity Skin Description : Normal Skin Temperature : Warm Activity Tolerance : Without distress MIRIAM TURK RN - 11/06/2014 13:42 CDT Neurological Neuro Patient Stated Symptoms : None Orientation : Oriented x 3, Appropriate for age Level of Consciousness : Alert Gait : Steady Swallowing Difficulty/Aspiration Risk : None MIRIAM TURK RN - 11/06/2014 13:42 CDT Parsons Coma Eye Opening Response Parsons : Spontaneously Best Verbal Response Parsons : Oriented Best Motor Response Mandy : Obeys simple commands Mandy Coma Score : 15 MIRIAM TURK RN - 11/06/2014 13:42 CDT Psycho/Emotional Affect/Behavior : Calm, Cooperative, Appropriate Pain Symptoms : No MIRIAM TURK RN - 11/06/2014 13:42 CDT Safety Grid Vision, Hearing, Mobility Adequate to Meet Safety Needs : Yes MIRIAM TURK RN - 11/06/2014 13:42 CDT Gastrointestinal GI Patient Stated Symptoms : None Abdomen Description : Symmetric Abdomen Palpation : Soft Bowel Movement Last Date : 11/05/2014 CDT Bowel Sounds All Quadrants : Present Stool Description : Loose Passing Flatus : Yes MIRIAM TURK RN - 11/06/2014 13:42 CDT Nutrition Home Diet : Regular Appetite : Good Eating Difficulties : None Feeding Ability : Complete independence MIRIAM TURK RN - 11/06/2014 13:42 CDT Genitourinary Patient Stated Symptoms : None Urinary Elimination : Voiding, no difficulties Bladder Distention : Absent MIRIAM TURK RN - 11/06/2014 13:42 CDT Integumentary Integumentary Patient Stated Symptoms : None Skin Turgor : Elastic Skin Integrity : Intact Mucous Membrane Color : [place] Mucous Membrane Description : Moist Skin Color : Normal for ethnicity Skin Description : Normal Skin Temperature : Warm MIRIAM TURK RN - 11/06/2014 13:42 CDT Saran Sensory Perception Saran : No impairment Moisture Saran : Rarely moist Activity Saran : Walks frequently Mobility Saran : No limitations Nutrition Saran : Adequate Friction and Shear Saran : No apparent problem Saran Score : 22 MIRIAM TUKR RN - 11/06/2014 13:42 CDT Musculoskeletal Musculoskeletal Patient Stated Symptoms : None Activity Tolerance : Without distress MIRIAM TURK RN - 11/06/2014 13:42 CDT Hendrich II Fall Risk Confusion/Disorientation Hendrich : No Depression Fall Risk Hendrich : No Altered Elimination Fall Risk Hendrich : No Dizziness/Vertigo Fall Risk Hendrich : No Gender, Male Fall Risk Hendrich : No Prescribed Antiepileptics Hendrich : No Prescribed Benzodiazepines Hendrich : No Rising From Chair Fall Risk Hendrich : Pushes up, successful in one attempt Fall Risk Score Javi II : 1 MIRIAM TURK RN - 11/06/2014 13:42 CDT Safe Patient Handling Safe Pt Handling Independent : Yes - No equipment needed Safe Pt Handling Equipment Rec : No Equipment Needed MIRIAM TURK RN - 11/06/2014 13:42 CDT Education General Patient Education Power[employer] Topics : Plan of care Individuals Taught : Patient, Significant other Barriers to Learning : None evident Teaching Method : Explanation Teaching Evaluation : Verbalizes understanding MIRIAM TURK RN - 11/06/2014 13:42 CDT Source: [facility] [employer] Document Id: [id number] CDT!108 documented in this encounter Miscellaneous Notes Miscellaneous - Kristi Brooke M.D. - 11/06/2014 8:48 PM CDT From: KRISTI BROOKE MD To: MARY KAY TORRES; Sent: 11/06/2014 20:48:04 CDT OB observation. PUJA, HUEY Source: [facility] [employer] Document Id: [id number] Electronically signed by Conversion, [facility] Communications Senior Associate [id number] at 09/08/2016 11:09 PM CDT Miscellaneous - Conversion, Historical Provider Ser - 11/06/2014 2:10 PM CDT Coding Summary-Paper Based CODING DATE: 11/17/2014 FINAL [facility] STATUS: * Discharged to Home or Self Care PAYOR: MMSI ADMIT DX: 649.53 Spotting Complicating , Antepartum Condition or Complication REASON FOR VISIT DX: 649.53 Spotting Complicating , Antepartum Condition or Complication FINAL DX: PRINCIPAL: 649.53 Spotting Complicating , Antepartum Condition or Complication SECONDARY: PROCEDURES DOCTOR NAME DATE NOTE: The code number assigned matches the documented diagnosis and / or procedure in the patient's chart. However, the narrative phrase printed from the coding software may appear abbreviated, or result in slightly different terminology. Coded By: FRANCISCO SMITH Date Saved: 11/17/2014 10:05 am Source: [facility] POWERCHART Document Id: [id number] documented in this encounter Plan of Treatment Not on filedocumented as of this encounter Visit Diagnoses Not on filedocumented in this encounter Care Teams Sleep Lab Technologist Relationship Specialty Start Date End Date Gabrielle Jara M.D. PCP - General Family Medicine 10/04/[address] [place] [address] documented as of this encounter
--- OUTSIDE RECORDS SUMMARY | 2021-11-21 03:04 | XMS_ITS | Encounter Summary ---
:1990 Author Organization [facility] Address [address] [place] [address] Care Team Providers Name Role Phone Gabrielle Jara M.D. Primary Care Provider Encounter Details Date Type Department Care Team Description 02/04/2017 Hospital Encounter HX [facility] OBGYN Kristine Rain A PRN, WHNP-BC [address] [place], [place] [phone] (Wo rk) Social History Tobacco Use Types Packs/Day Years Used Date Smoking Tobacco: Former Sex Assigned at Date Recorded Not on file documented as of this encounter Last Filed Vital Signs Vital Sign Reading Time Taken Comments Blood Pressure 122/68 02/04/2017 10:35 AM CDT Pulse 82 02/04/2017 10:35 AM CDT Temperature - - Respiratory Rate 18 02/04/2017 10:35 AM CDT Oxygen Saturation - - Inhaled Oxygen Concentration - - Weight - - Height 179 cm (5' 10.47) 02/04/2017 10:35 AM CDT Body Mass Index - - documented in this encounter Progress Notes Kristine Rain R.N., WHNP-BC - 02/04/2017 11:13 AM CDT Addendum by KRISTINE RAIN R.N., WHNP-BC on February 04, 2017 14:02 CDT BV +. patient is notified. Rx sent for metrogel for 10 days, followed by twice weekly applications of metrogel for 6 months. She verbalizes understanding Modified by and Electronically Signed by: KRISTINE RAIN R.N., WHNP-BC On: 02/04/2017 02:02 PM S: This patient is here to discuss: 1. Terrible vaginal odor that has been ongoing for the past 2 years. She has had vaginitis panels + for BV in the past. She reports that after she received treatment for BV early in 2015, her symptoms did not improve. She is very concerned about this odor. She has tried apple cider vinegar and takes a probiotic daily. 2. irregular, prolonged (daily since June) vaginal bleeding with the Nexplanon. She also reports a metal smell with the vaginal bleeding. She is tired of the daily bleeding. Is unsure what she wouldlike to do going forward. May want removal. Medical history: Acne vulgaris Headache Left kidney infection Tobacco use Leak Amniotic Fluid Pain Back From Preg Medications: [facility] [place]: Probiotic twice daily etonogestrel: Implant,Once levonorgestrel-ethinyl estradiol: 1 tab(s),PO,Daily magnesium citrate: 50 mg,PO multivitamin: 1 tab(s),PO,Daily Allergies: No Known Medication Allergies VITAL SIGNS Temperature Core: 36.6 DegC Peripheral Pulse Rate: 82 /min Respiratory Rate: 18 /min BLOOD PRESSURE Systolic Blood Pressure: 122 mmHg Diastolic Blood Pressure: 68 mmHg MEASUREMENTS Height: 179 cm O: External vaginal genitalia without lesion, intact. vaginal forrester deeply rugated, cervix multiparous,no lesion, normal cervical discharge. pap smear obtained. vaginal swab obtained. bimanual exam smallfirm mobile uterus. enlarged left ovary. right ovary palpable. A/P: #1 vaginal odor. vaginitis panel, pending. pap smear collected today, pending. Suspect BV. We discussed termite inspector therapy if the vaginitis panel confirms my suspicion. She is agreeable to this. I will call her with results and next steps - consider mcfp treatment. We discussed boric acid, at thistime she is not interested. We also discussed vaginal wash to improve pH balance as well as [employer] vaginal wand. #2 irregular vaginal bleeding with Nexplanon implant. We reviewed her pelvic ultrasound that was done yesterday. She will repeat sono in 6-12 weeks due to left ovarian cyst that is 6cm. She is given torsion precautions. We reviewed irregular bleeding is a common side effect of Nexplanon, therefore removal may resolve her symptoms. We also discussed a trial of OCPs for 3 months to see if this helps. She is interested in tryng the OCPs at this time. Rx sent for 3 months. Electronically Signed By: KRISTINE RAIN R.N., WHNP-BC On: 02/04/2017 11:39 AM Modified by and Electronically Signed by: KRISTINE RAIN R.N., WHNP-BC On: 02/04/2017 11:39 AM Source: [facility] POWERCHART Document Id: [id number] documented in this encounter Miscellaneous Notes Miscellaneous - Kristine Rain R.N., WHNP-BC - 02/04/2017 11:39 AM CDT Ambulatory Discharge Medication List [address] [id number] Visit Information Name: CHERRY HALL [facility] Number: [id number] Current Date: 02/04/2017 11:39:31 Attending Provider: KRISTINE RAIN R.N., WHNP-BC Primary Care Provider: PCP, CHERRY EDMOND has [...] Patient Medication Changes/Routing etonogestrel (etonogestrel) Implant, once levonorgestrel-ethinyl estradiol (Nordette 0.15 mg-30 mcg oral tablet) 1 Tablet(s), Oral, once a dayRouted to [address] [address] magnesium citrate (magnesium citrate) 50 mg, Oral, Misc Prescription (Misc Prescription) Probiotic twice daily multivitamin (multivitamin) 1 Tablet(s), Oral, once a day Stop Taking the Following Medications: Medication list as of 02-04-17 11:39 Attention: If you have any medications at home that are not on this list, DO NOT take them until youcontact your provider for clarification. Give a copy of your medication list to your primary care provider. Update your medication list any time medications or doses are changed and carry your medication list at all times in case of emergency. Electronically Signed By: KRISTINE RAIN R.N., WHNP-BC Signed On:04-FEB-2017 11:39:29 Additional Information: Source: [facility] POWERCHART Document Id: [id number] Miscellaneous - Kristine Rain R.N., WHNP-BC - 02/04/2017 11:39 AM CDT Ambulatory Patient Summary [address] [id number] Visit Information Name: CHERRY HALL [facility] Number: [id number] Current Date: 02/04/2017 11:39:32 Physicians Attending Provider: KRISTINE RAIN R.N., WHNP-BC Primary Care Provider: PCP, CHERRY EDMOND has [...] Patient Medication Changes/Routing etonogestrel (etonogestrel) Implant, once levonorgestrel-ethinyl estradiol (Nordette 0.15 mg-30 mcg oral tablet) 1 Tablet(s), Oral, [facility] [place], [place] [id number] magnesium citrate (magnesium citrate) 50 mg, Oral, Misc Prescription (Misc Prescription) Probiotic twice daily multivitamin (multivitamin) 1 Tablet(s), Oral, once a day Stop Taking the Following Medications: Medication list as of 02-04-17 11:39 Attention: If you have any medications at home that are not on this list, DO NOT take them until youcontact your provider for clarification. Give a copy of your medication list to your primary care provider. Update your medication list any time medications or doses are changed and carry your medication list at all times in case of emergency. Electronically Signed By: KRISTINE RAIN R.N., WHNP-BC Signed On:04-FEB-2017 11:39:29 Your Allergies & Intolerances Substance Reaction Symptoms [...] if you dont have one. Go to [email or web address] and click on Create Your Account. Then, follow the directions to complete the online form. Youll be asked for your [facility] number which you can find at the top of this document. Your Goals/Additional instructions: Source: [facility] POWERCHART Document Id: [id number] Miscellaneous - Stephanie Ledesma, L.P.N. - 02/04/2017 11:09 AM CDT Beaming Machine Operator Documentation Beaming Machine Operator Documentation Entered On: 02/04/2017 11:09 CDT Performed On: 02/04/2017 11:09 CDT by STEPHANIE LEDESMA LPN Beaming Machine Operator Documentation Exam/Procedure Performed : Pap, Pelvic exam and Vaginitis panel CD Beaming Machine Operator Present : Yes CD Beaming Machine Operator Name : Bernard INDUSTRIAL AUTOMATION ENGINEER Present in Room During Exam/Procedure : Alone STEPHANIE LEDESMA LPN - 02/04/2017 11:09 CDT Source: [facility] POWERCHART Document Id: [id number] CDT!6 Miscellaneous - Stephanie Ledesma L.P.N. - 02/04/2017 10:35 AM CDT Adult Motor Express Clerk Intake/History Adult Motor Express Clerk Intake/History Entered On: 02/04/2017 10:38 CDT Performed On: 02/04/2017 10:35 CDT by STEPHANIE LEDESMA LPN Intake Chief Complaint : Abnormal menses with clots foul oder LMP Date : 01/26/2017 Temperature Core : 36.6 DegC(Converted to: 97.9 DegF) Peripheral Pulse Rate : 82 /min Respiratory Rate : 18 /min Heart Rhythm : Regular Systolic Blood Pressure : 122 mmHg Diastolic Blood Pressure : 68 mmHg NIBP Mean : 86 mmHg BP Location : Left upper extremity Blood Pressure Cuff Size : Large Height : 179 cm(Converted to: 5 ft 10 inch(es), 70 inch(es)) Weight Source : Other: declined STEPHANIE LEDESMA LPN - 02/04/2017 10:35 CDT General Info Information Given By : Patient Languages : Syriac Is Patient Female and 13-50 no hysterectomy : Yes Status : Patient denies Are you ? : No STEPHANIE LEDESMA LPN - 02/04/2017 10:35 CDT Subjective Pain Symptoms : No STEPHANIE LEDESMA LPN - 02/04/2017 10:35 CDT Dependent Habits Exposure to Tobacco Smoke : Other: Former smoker: quit 03/2014 Smoking Status : Former smoker Tobacco 2A : Yes Tobacco Use/Currently Using : No Tobacco Use/Last 30 Days : No Tobacco Use/Last 12 months : No STEPHANIE LEDESMA LPN - 02/04/2017 10:35 CDT Caffeine Use Grid Caffeine Use : None Type : Coffee Frequency : Daily Amount : 1 STEPHANIE LEDESMA LPN - 02/04/2017 10:35 CDT Recreational Drug Use Grid Drug Use : None STEPHANIE LEDESMA Dana INDUSTRIAL AUTOMATION ENGINEER - 02/04/2017 10:35 CDT Source: [facility] POWERCHART Document Id: [id number] CDT!39 documented in this encounter Plan of Treatment Not on filedocumented as of this encounter Procedures Procedure Name Priority Date/Time Associated Diagnosis Comme nts VAGINITIS PANEL Routine 02/04/2017 11:45 AM Resul ts for this CDT procedure are i n the results section. THINPREP SCREEN HPV Routine 02/04/2017 11:17 AM R esults for this REFLEX CDT procedure are i n the results section. documented in this encounter Results (ABNORMAL) Vaginitis Panel (02/04/2017 11:45 AM CDT) Component Value Ref Test Analysis Performed At [facility] [employer] [facility] Method Time Signature HXVaginitis (POSITIVE) POWERCHART Battery, DNA (Genital) HXFinal Trichomonas POWERCHART vaginalis DNA negative HXFinal Gardnerella POWERCHART vaginalis DNA positive HXFinal Katie species POWERCHART DNA negative HXFinal Reference: POWERCHART Negative Specimen (Source) Anatomical Collection Method Collection Time Re ceived Time Location / / Volume Laterality Vagina 02/04/2017 11:45 AM CDT Kristine Rain APRN, JL- LAB MICROBIOLOGY - GENERAL ORDERABLES Performing Organization Address City/State/ZIP Code Phon e Number POWERCHART POWERCHART NA ThinPrep Screen HPV Reflex (02/04/2017 11:17 AM CDT) [facility] Nethub Method Time Signature HX ThPrep Scrn See Comment POWERCHART [facility] Comment: Cervical/Endocervical ??(ThinPrep): Satisfactory for Evaluation Negative for Intraepithelial Lesion or M alignancy HX ThPrep Scrn [facility] See Comment P ABY Comment: Marietta Brian, TRACIE(ASCP) I verify that I have examined all releva nt slides/materials for the specimen(s) and rendered or conf irmed the diagnosis. ThPrep Scrn Gross Desc[facility] See Comment POWERCHART Comment: RESULT: Received specimen in a ThinPrep vial. HX ThPrep Scrn Source-[place] See Comment P ABY Comment: RESULT: Cervical/Endocervical THIN PREP SCRN HISTORY none POWERCH ART HX ThPrep Scrn Mens Status-[place] LMP: 01/26/2017 POWERCHART HX ThPrep Scrn Hormones-[place] See Comment POWERCHART Comment: RESULT: Hormone Replacement The rapy HX ThPrep Scrn Case-[place] [id number] POW ERCHART Comment: Test Performed by: [facility] [address] [place] [address] Specimen (Source) Anatomical Collection Method Collection Time Re ceived Time Location / / Volume Laterality Cervix/Endocervix 02/04/2017 11:17 AM CDT EVELIO Hernández APRN- LAB PAP PATHDX ORDERABLES Performing Organization Address City/State/ZIP Code Phon e Number POWERCHART POWERCHART NA documented in this encounter Visit Diagnoses Not on filedocumented in this encounter Care Teams Taxicab Coordinator Relationship Specialty Start Date End Date Gabrielle Jara M.D. PCP - General Family Medicine 10/04/[address] [place] [phone] documented as of this encounter
--- OUTSIDE RECORDS SUMMARY | 2021-11-21 03:04 | XMS_ITS | Encounter Summary ---
:1990 Author Organization [facility] Address [address] [place] [address] Care Team Providers Name Role Phone Gabrielle Jara M.D. Primary Care Provider Encounter Details Date Type Department Care Team Description 11/24/2014 Hospital Encounter HX [facility] Kristine Simon A PRN, NP- [address] [place] [phone] (Wo rk) Social History Tobacco Use Types Packs/Day Years Used Date Smoking Tobacco: Never Assessed Sex Assigned at Date Recorded Not on file documented as of this encounter Last Filed Vital Signs Vital Sign Reading Time Taken Comments Blood Pressure 120/52 11/24/2014 3:18 PM CDT Pulse - - Temperature - - Respiratory Rate - - Oxygen Saturation - - Inhaled Oxygen Concentration - - Weight 114 kg (252 lb 3.3 oz) 11/24/2014 3:18 PM CDT Height 179 cm (5' 10.47) 11/24/2014 3:18 PM CDT Body Mass Index 35.7 11/24/2014 3:18 PM CDT documented in this encounter Miscellaneous Notes Miscellaneous - Jia Coello, L.P.N. - 11/24/2014 3:18 PM CDT Adult Briquetter Operator Intake/History Adult Briquetter Operator Intake/History Entered On: 11/24/2014 15:21 CDT Performed On: 11/24/2014 15:18 CDT by JIA COELLO LPN Intake Chief Complaint : visit. Lethargic today. Cramping and frequent back pain. LMP Date : 03/03/2014 Heart Rhythm : Regular Systolic Blood Pressure : 120 mmHg Diastolic Blood Pressure : 52 mmHg NIBP Mean : 75 mmHg BP Location : Left upper extremity Blood Pressure Cuff Size : Large Height : 179 cm(Converted to: 5 ft 10 inch(es), 70 inch(es)) Actual Weight : 114.4 kg(Converted to: 252 lb 3 oz) Weight Source : Standing scale Dosing Weight Clinic : 114.4 kg Clinic BSA : 2.38 Body Mass Index : 35.7 kg/m2 JAYLEEN COELLOINE Abiodun [facility] 11/24/2014 15:18 CDT General Info Information Given By : Patient Languages : Northern Irish Is Patient Female and 13-50 no hysterectomy : Yes Status : Confirmed positive Are you ? : No JIA COELLO Abiodun [facility] 11/24/2014 15:18 CDT Subjective Pain Symptoms : Yes JIA COELLO [facility] 11/24/2014 15:18 CDT Pain Scale Pain Scale Verbal 0-10 : Open JIA COELLO [facility] 11/24/2014 15:18 CDT Pain Pain Assessment Grid Pain 1 Location : Lower back Intensity : 4 Quality : Aching, Cramping JIA COELLO [facility] 11/24/2014 15:18 CDT Dependent Habits Tobacco Use/Currently Using : No Exposure to Tobacco Smoke : Other: Former smoker: quit 03/2014 Smoking Status : Former smoker JIA COELLO [facility] 11/24/2014 15:18 CDT Tobacco Use Grid Type : Cigarettes JIA COELLO [facility] 11/24/2014 15:18 CDT Alcohol Use : No JIA COELLO [facility] 11/24/2014 15:18 CDT Caffeine Use Grid Caffeine Use : None Type : Coffee Frequency : Daily Amount : 1 JIA COELLO [facility] 11/24/2014 15:18 CDT Recreational Drug Use Grid Drug Use : None JIA COELLO [facility] 11/24/2014 15:18 CDT [facility] Document Id: [id number] CDT!49 documented in this encounter Plan of Treatment Not on filedocumented as of this encounter Visit Diagnoses Not on filedocumented in this encounter Care Teams School Psychologist Assistant Relationship Specialty Start Date End Date Gabrielle Jara M.D. PCP - General Family Medicine 10/04/[address] [place] [phone] documented as of this encounter
--- OUTSIDE RECORDS SUMMARY | 2021-11-21 03:04 | XMS_ITS | Encounter Summary ---
:1990 Author Organization [facility] Address [address] [place] [address] Care Team Providers Name Role Phone Gabrielle Jara M.D. Primary Care Provider Encounter Details Date Type Department Care Team Description 11/04/2014 Hospital Encounter HX [facility] Kristi Olguin M.D. Social History Tobacco Use Types Packs/Day Years Used Date Smoking Tobacco: Never Assessed Sex Assigned at Date Recorded Not on file documented as of this encounter Last Filed Vital Signs Vital Sign Reading Time Taken Comments Blood Pressure 112/68 11/04/2014 9:59 AM CDT Pulse - - Temperature - - Respiratory Rate - - Oxygen Saturation - - Inhaled Oxygen Concentration - - Weight 110 kg (243 lb 2.7 oz) 11/04/2014 9:59 AM CDT Height 179 cm (5' 10.47) 11/04/2014 9:59 AM CDT Body Mass Index 34.43 11/04/2014 9:59 AM CDT documented in this encounter Miscellaneous Notes Miscellaneous - Macy Bernard D.O. - 11/12/2014 12:20 PM CDT Addendum by RAYMON MCNULTY on 18 November 2014 08:48:01 CDT From: RAYMON MCNULTY To: MACY BERNARD DO; Sent: 11/18/2014 08:48:01 CDT Subject: RE: Appointment scheduled, patient pleased. Thank for the order Dr. Bernard. Addendum by MACY BERNARD DO on 18 November 2014 07:55:18 CDT From: MACY BERNARD DO To: RAYMON MCNULTY; Sent: 11/18/2014 07:55:18 CDT Subject: RE: Order in. ERL Addendum by MACY BERNARD DO on 18 November 2014 07:54:55 CDT From: MACY BERNARD DO To: RAYMON MCNULTY; Sent: 11/18/2014 07:54:55 CDT Subject: RE: Order put in. Thanks! ERL Addendum by RAYMON MCNULTY on 17 November 2014 10:47:04 CDT From: RAYMON MCNULTY To: MACY BERNARD DO; Sent: 11/17/2014 10:47:04 CDT Subject: RE: Hi Dr. Bernard, WILVER 11/18/14 and 11/24/14 with ob check following. Could I get one more order for the following week, in case needed? Patient likes latest in the date, if needed. STEVEN: 12/08/14 Thank you, Raymon Patient Access Addendum by RAYMON MCNULTY on 15 November 2014 08:23:06 CDT Left message for patient to call back. sla Addendum by RAYMON MCNULTY on 14 November 2014 08:47:44 CDT Left message for patient to call back. sla From: MACY BERNARD DO To: RAYMON MCNULTY; Sent: 11/12/2014 12:20:23 CDT Patient needs weekly WILVER only. Thanks! ERL Source: [facility] POWERCHART Document Id: [id number] Electronically signed by Conversion, [facility] [employer]ee Developer [id number] at 09/08/2016 11:09 PM CDT Miscellaneous - Kristi Brooke M.D. - 11/05/2014 8:36 AM CDT From: KRISTI BROOKE MD To: CHERRY HALL Sent: 11/05/2014 08:36:27 CDT Jerry Troncosoki, Your vaginal culture is Group B Beta Strep Positive. This means we will administer antibiotics in labor. Please email or call if there are any questions or concerns. Sincerely, Dr. Brooke Source: [facility] POWERCHART Document Id: [id number] Miscellaneous - Kristi Brooke M.D. - 11/04/2014 10:27 AM CDT Ambulatory Patient Summary [facility] [address] [facility], [address] [place], [place] [phone] Visit Information Name: CHERRY HALL [facility] Number: [id number] Current Date: 11/04/2014 10:26:59 Physicians Attending Provider: KRISTI BROOKE MD Primary Care Provider: PCP, ELSEWHERE CHERRY [...] the Following Medications: Medication list as of 11-04-14 10:26 Attention: If you have any medications at home that are not on this list, DO NOT take them until youcontact your provider for clarification. Give a copy of your medication list to your primary care provider. Update your medication list any time medications or doses are changed and carry your medication list at all times in case of emergency. Electronically Signed By: KRISTI BROOKE MD Signed On:04-NOV-2014 10:26:54 Your Allergies & Intolerances Substance Reaction Symptoms Category Comments No Known Medication Allergies Drug NO KNOWN DRUG ALLERGIES Your Problem List Problem Status Onset Comments Left kidney infection Active 04/14/2003 10/24/10 function 12% date unknown Acne vulgaris Active 02/13/2011 Headache Active 2010 Tobacco use Active 2002 09/03/11 unknown date of dx Active 03/03/2014 Pain Back From Preg Active Your Upcoming Appointments Date Time Location Provider 11/10/2014 15:00 [facility] OVEN PRESS TENDER Carlos PARIKH, Kristine Cortez Attention: Contact your local Clinic if further appointment detail needed. After a Vaginal After having a baby, your body may be very tired. It can take time to recover from a vaginal delivery. You may stay in the hospital or center from 1 to 4 days. In some cases, you may be able to go home the same day. [id number] After the Delivery Your temperature and blood [...] and anus), an ice pack can help. Care While still in the hospital or [...] take care of your baby and yourself. Youre ready to go home when: ?? You [...] in the lower leg Chest pain ?? [id number] Patrice Dejesus, [address] [place] [address]. All rights reserved. This information is not intended as a substitute for professional medical care. Always follow your healthcare professional's instructions. Consider Using Patient Online Services Patient Online [...] if you dont have one. Go to [email or web address]/[email or web address] and click on Create Your Account. Then, follow the directions to complete the online form. Youll be asked for your [facility] number which you can find at the top of this document. Your Goals/Additional instructions: This document has images extracted. Please consider using [employer] for all your patient education needs. Source: [facility] POWERCHART Document Id: [id number] Miscellaneous - Kristi Brooke M.D. - 11/04/2014 10:26 AM CDT Ambulatory Discharge Medication List [facility] [address] [place] [address] [place], [address] [place], [place] [phone] Visit Information Name: CHERRY HALL [facility] Number: [id number] Visit Date: 11/04/2014 10:26:58 Attending Provider: KRISTI BROOKE MD Primary Care Provider: PCP, ELSEWHERE CHERRY HALLY has been given the following list of [...] the Following Medications: Medication list as of 11-04-14 10:26 Attention: If you have any medications at home that are not on this list, DO NOT take them until youcontact your provider for clarification. Give a copy of your medication list to your primary care provider. Update your medication list any time medications or doses are changed and carry your medication list at all times in case of emergency. Electronically Signed By: KRISTI BROOKE MD Signed On:04-NOV-2014 10:26:54 Additional Information: Source: [facility] POWERCHART Document Id: [id number] Miscellaneous - Tasha Black, L.P.N. - 11/04/2014 9:59 AM CDT Adult Automotive Artist Intake/History Adult Automotive Artist Intake/History Entered On: 11/04/2014 10:01 CDT Performed On: 11/04/2014 9:59 CDT by TASHA BLACK LPN Intake Chief Complaint : ob check-? pinch nerve in back, abdominal cramping LMP Date : 03/03/2014 Systolic Blood Pressure : 112 mmHg Diastolic Blood Pressure : 68 mmHg NIBP Mean : 83 mmHg Height : 179 cm(Converted to: 5 ft 10 inch(es), 70 inch(es)) Actual Weight : 110.3 kg(Converted to: 243 lb 3 oz) Dosing Weight Clinic : 110.3 kg Clinic BSA : 2.34 Body Mass Index : 34.42 kg/m2 TASHA BLACK LPN - 11/04/2014 9:59 CDT General Info Information Given By : Patient Languages : Setswana Is Patient Female and 13-50 no hysterectomy : No TASHA BLACK LPN - 11/04/2014 9:59 CDT Subjective Pain Symptoms : Yes TASHA BLACK LPN - 11/04/2014 9:59 CDT Pain Scale Pain Scale Verbal 0-10 : Open TASHA BLACK LPN - 11/04/2014 9:59 CDT Pain Pain Assessment Grid Pain 1 Location : Hip Laterality : Left Intensity : 6 TASHA BLACK LOGISTICS PROJECT MANAGER - 11/04/2014 9:59 CDT Dependent Habits Tobacco Use/Currently Using : No Exposure to Tobacco Smoke : Other: Former smoker: quit 03/2014 Smoking Status : Former smoker TASHA BLACK [facility] - 11/04/2014 9:59 CDT Tobacco Use Grid Type : Cigarettes TASHA BLACK LOGISTICS PROJECT MANAGER - 11/04/2014 9:59 CDT Caffeine Use Grid Caffeine Use : None Type : Coffee Frequency : Daily Amount : 1 TASHA BLACK LOGISTICS PROJECT MANAGER - 11/04/2014 9:59 CDT Recreational Drug Use Grid Drug Use : None TASHA BLACK LOGISTICS PROJECT MANAGER 11/04/2014 9:59 CDT Source: [facility] POWERCHART Document Id: [id number] CDT!42 documented in this encounter Plan of Treatment Not on filedocumented as of this encounter Procedures Procedure Name Priority Date/Time Associated Diagnosis Comme nts HXSTREP GROUP B BY Routine 11/04/2014 10:15 AM Re sults for this PCR CDT procedure are i n the results section. documented in this encounter Results (ABNORMAL) HXSTREP GROUP B BY PCR (11/04/2014 10:15 AM CDT) [facility] gist Method Time Signature HXStrep Group (POSITIVE) POWERCHART B by PCR HXFinal Positive for POWERCHART Group B Strep by PCR. Specimen (Source) Anatomical Collection Method Collection Time Re ceived Time Location / / Volume Laterality Vaginal/Rectum 11/04/2014 10:15 AM CDT Kristi Brooke M.D. LAB HISTORICAL ORDERS Performing Organization Address City/State/ZIP Code Phon e Number POWERCHART documented in this encounter Visit Diagnoses Not on filedocumented in this encounter Care Teams Baby Nurse Relationship Specialty Start Date End Date Gabrielle Jara M.D. PCP - General Family Medicine 10/04/[address] [place] [address] documented as of this encounter
--- OUTSIDE RECORDS SUMMARY | 2021-11-21 03:04 | XMS_ITS | Encounter Summary ---
:1990 Author Organization [facility] Address [address] [place] [address] Care Team Providers Name Role Phone Gabrielle Jara M.D. Primary Care Provider Encounter Details Date Type Department Care Team Description 11/24/[address] [facility] [place] [facility] Macy Bernard, OBSTETRICS D.O. [address] [place] [address] (Wo rk) Social History Tobacco Use Types [...] - Height 179 cm (5' 10.47) 11/24/2014 3:56 PM CDT Body Mass Index - - documented in this encounter Discharge Summaries Michaela Escalona R.N. - 11/24/2014 4:13 PM CDT Hospital Discharge Instructions [address] [address] Patient Discharge Instructions Name: CHERRY HALL Current Date: 11/24/2014 16:13:15 : 1990 12:00 AM [facility] Number: [id number] Patient Address: [address] [place] [phone] Patient Primary Care Provider: Name: PCP, BAKARI Phone: Discharge Diagnosis: [facility] would like to thank you for allowing us to assist you with yourhealthcare needs. The following includes patient education materials and information regarding your injury/illness. Comment: Patient educated regarding warning signs of labor, preeclampsia, fever, rupture of membranes, leaking, decreased movement, vaginal bleeding, persistant nausea and vomiting, signsand symptoms of viral [...] the Following Medications: Medication list as of 11-24-14 16:13 Attention: If you have any medications at [...] Your Upcoming Appointments Date Time Location Provider 11/30/2014 15:30 [facility] Ultrasound [facility] 1 11/30/2014 16:15 [facility] [employer] CREW MEMBER Kala CHACKO, Candie Rascon Consider Using Patient Online Services Patient Online [...] if you dont have one. Go to [email or web address] and click on Create Your Account. Then, follow the directions to complete the online form. Youll be asked for your [facility] number which you can find at the top of this document. IRAFAEL NICOLETTE KAY , have received the attached [...] felt your baby move all day. ?? [id number] [place] [address]. All rights reserved. This information is not intended as a substitute for professional medical care. Always follow your healthcare professional's instructions. This document has images extracted. Please consider using [employer] for all your patient education needs. Source: [facility] [place] POWERCHART Document Id: [id number] Michaela Escalona R.N. - 11/24/2014 4:13 PM CDT Hospital Discharge Medication List [facility] [address] [place] [address] Discharge Medication List Name: CHERRY HALL Current Date: 11/24/2014 16:13:15 : 1990 12:00 AM [facility] Number: [id number] Patient Address: [address] [place] [phone] Patient Primary Care Provider: Name: PCP, BAKARI Phone: Discharge Diagnosis: [facility] [place] would like to thank you for allowing [...] the Following Medications: Medication list as of 11-24-14 16:13 Attention: If you have any medications at [...] Comment: Electronically Signed By: Signed On: Source: [facility] [employer] Document Id: [id number] documented in this encounter Progress Notes Macy Bernard D.O. - 11/24/2014 3:54 PM CDT Progress Note-Hospital Irregular cramping. SVE unchanged 3 cm. E. Michelet CARRERA Electronically Signed By: MACY BERNARD DO On: 12/16/2014 09:17 AM Source: [facility] [employer] Document Id: [id number] documented in this encounter Nursing Notes Michaela Escalona R.N. - 11/24/2014 4:20 PM CDT Antepartum Testing Antepartum Testing Entered On: 11/24/2014 16:28 CDT Performed On: 11/24/2014 16:20 CDT by MICHAELA ESCALONA RN NST, Baby A/Prabhakar Indication for Test : Other: sent up form clinic visit after detected tachycardia Heart Rate Baseline : 140 Variability : Moderate Accelerations : 15 x 15 Decelerations : Absent Contractions : Present Interpretation : Reactive Provider : MACY BERNARD KELLY RN - 11/24/2014 16:24 CDT Source: [employer] Document Id: [id number] CDT!10 documented in this encounter Miscellaneous Notes Miscellaneous - Conversion, Historical Provider Ser - 11/24/2014 4:29 PM CDT Coding Summary-Paper Based CODING DATE: 01/25/2015 FINAL [facility] STATUS: * Discharged to Home or Self Care [facility] AD[facility] DX: 644.03 Threatened Premature Labor, Antepartum Condition or Complication REASON FOR VISIT DX: 644.03 Threatened Premature Labor, Antepartum Condition or Complication FINAL DX: PRINCIPAL: 644.03 Threatened Premature Labor, Antepartum Condition or Complication SECONDARY: PROCEDURES DOCTOR NAME DATE NOTE: The code number assigned matches the documented diagnosis and / or procedure in the patient's chart. However, the narrative phrase printed from the coding software may appear abbreviated, or result in slightly different terminology. Coded By: CATHIE OSEGUERA Date Saved: 01/25/2015 03:55 pm Source: [employer] Document Id: [id number] documented in this encounter Plan of Treatment Not on filedocumented as of this encounter Visit Diagnoses Not on filedocumented in this encounter Care Teams Machine Tank Operator Relationship Specialty Start Date End Date Gabrielle Jara M.D. PCP - General Family Medicine 10/04/13 [address] [place] [address] documented as of this encounter
--- OUTSIDE RECORDS SUMMARY | 2021-11-21 03:04 | XMS_ITS | Encounter Summary ---
:1990 Author Organization [facility] Address [address] [place] [address] Care Team Providers Name Role Phone Gabrielle Jara M.D. Primary Care Provider Encounter Details Date Type Department Care Team Description 01/01/2018 Clinical Communication Department of Kristine Gonzalez, Obstetrics and EVELIO PERERA- Gynecology in [address] [address] [place], [place] [phone] (Work) [phone] Social History Tobacco Use Types Packs/Day Years Used Date Smoking Tobacco: Some Days Sex Assigned at Date Recorded Not on file documented as of this encounter Miscellaneous Notes Telephone Encounter - Radha Howell - 01/01/2018 11:39 AM CDT Pt asking for a refill on her control to be sent to [facility] in [place]. She is out onSat. She has a scheduled appt to get a physical after her date of 01/14/2018. Thanks documented in this encounter Plan of Treatment Not on filedocumented as of this encounter Visit Diagnoses Not on filedocumented in this encounter Care Teams College Advisor Relationship Specialty Start Date End Date Gabrielle Jara M.D. PCP - General Family Medicine 10/04/13 [address] [place] [address] documented as of this encounter
--- OUTSIDE RECORDS SUMMARY | 2021-11-21 03:04 | XMS_ITS | Encounter Summary ---
:1990 Author Organization [facility] Address [address] [place] [address] Care Team Providers Name Role Phone Gabrielle Jara M.D. Primary Care Provider Encounter Details Date Type Department Care Team Description 11/18/2014 Hospital Encounter [facility] OBGYN Macy Tafoya D.O. [address] [place] [address] (Wo rk) Social History Tobacco Use Types Packs/Day Years Used Date Smoking Tobacco: Never Assessed Sex Assigned at Date Recorded Not on file documented as of this encounter Last Filed Vital Signs Vital Sign Reading Time Taken Comments Blood Pressure 116/64 11/18/2014 2:22 PM CDT Pulse - - Temperature - - Respiratory Rate - - Oxygen Saturation - - Inhaled Oxygen Concentration - - Weight 117 kg (257 lb 4.4 oz) 11/18/2014 2:22 PM CDT Height 179 cm (5' 10.47) 11/18/2014 2:22 PM CDT Body Mass Index 36.42 11/18/2014 2:22 PM CDT documented in this encounter Nursing Notes Ezequiel Irvin L.P.N. - 11/18/2014 2:25 PM CDT Ambulatory Patient Education The following Patient Education Materials have been given to the patient: Patient Education Materials: Instructional Technology Facilitator Comfort Tips During Instructional Technology Facilitator Comfort Tips During Talk with your doctor before using pain-relieving medication at any time during your . First Trimester Tips Nausea ?? Get up slowly. Eat a few unsalted crackers before you get out of bed. ?? Eat small, light meals at frequent intervals. ?? Drink water with lemon slices. Fatigue: ?? Take catnaps when you can. ?? Get regular exercise. ?? Accept help from others. Mood Swings ?? Talk about your feelings with others, including other mothers. ?? Limit sugar, chocolate, and caffeine. ?? Eat a healthy diet. Dont skip meals. Headaches ?? Get fresh air and exercise. ?? Relax and get enough rest. ?? Check with your healthcare provider before taking any pain medications. Second Trimester Tips ?? To limit ankle swelling, sit with your feet raised. ?? If you have pain in your groin and abdomen (round ligament pain), avoid sudden twisting movements. ?? For leg cramps, wear support hose. Get enough exercise and wear shoes with flexible soles. Third Trimester Tips Reducing Heartburn ?? Eat small, light meals throughout the day rather than 3 large ones. ?? Sleep with your upper body raised 6 inches. Dont lie down until 2 hours after you eat. Treating Constipation ?? Eat foods high in fiber (whole-grain foods, fresh fruit and vegetables). ?? Drink plenty of water. ?? Get regular exercise. Taking Care of Your Breasts ?? Avoid using harsh soaps or alcohol, which can cause excessive dryness. ?? Wear nursing bras. They provide more support than regular bras and can be used after ifyou breastfeed. Getting a Good Nights Sleep ?? Take a warm shower before bed. ?? Sleep on a firm mattress. ?? Lie on your side with one leg crossed over the other. ?? Use pillows to support arms, legs, and belly. ?? [id number] [facility], [address] [place] [address], [place] [address]. All rights reserved. This information is not intended as a substitute for professional medical care. Always follow your healthcare professional's instructions. This document has images extracted. Please consider using [employer] for all your patient education needs. Source: [facility] POWERCHART Document Id: [id number] documented in this encounter Miscellaneous Notes Miscellaneous - Ezequiel Irvin L.PBrisa. - 11/18/2014 2:22 PM CDT Adult Die Engraving Supervisor Intake/History Adult Die Engraving Supervisor Intake/History Entered On: 11/18/2014 14:24 CDT Performed On: 11/18/2014 14:22 CDT by EZEQUIEL IRVIN LPN Intake Chief Complaint : ob check LMP Date : 03/03/2014 Systolic Blood Pressure : 116 mmHg Diastolic Blood Pressure : 64 mmHg NIBP Mean : 81 mmHg Height : 179 cm(Converted to: 5 ft 10 inch(es), 70 inch(es)) Actual Weight : 116.7 kg(Converted to: 257 lb 4 oz) Dosing Weight Clinic : 116.7 kg Clinic BSA : 2.41 Body Mass Index : 36.42 kg/m2 EZEQUIEL IRVIN LPN - 11/18/2014 14:22 CDT General Info Information Given By : Patient Languages : Thai Is Patient Female and 13-50 no hysterectomy : No EZEQUIEL IRVIN LPN - 11/18/2014 14:22 CDT Subjective Pain Symptoms : No EZEQUIEL IRVIN LPN - 11/18/2014 14:22 CDT Dependent Habits Tobacco Use/Currently Using : No Exposure to Tobacco Smoke : Other: Former smoker: quit 03/2014 Smoking Status : Former smoker EZEQUIEL IRVIN LPN - 11/18/2014 14:22 CDT Tobacco Use Grid Type : Cigarettes EZEQUIEL IRVIN LPN - 11/18/2014 14:22 CDT Caffeine Use Grid Caffeine Use : None Type : Coffee Frequency : Daily Amount : 1 EZEQUIEL IRVIN LPN - 11/18/2014 14:22 CDT Recreational Drug Use Grid Drug Use : None EZEQUIEL IRVIN LPN - 11/18/2014 14:22 CDT Source: [facility] POWERCHART Document Id: [id number] CDT!34 documented in this encounter Plan of Treatment Not on filedocumented as of this encounter Visit Diagnoses Not on filedocumented in this encounter Care Teams Certified Personal Chef Relationship Specialty Start Date End Date Gabrielle Jara M.D. PCP - General Family Medicine 10/04/[address] [place] [phone] documented as of this encounter
--- OUTSIDE RECORDS SUMMARY | 2021-11-21 03:04 | XMS_ITS | Encounter Summary ---
:1990 Author Organization [facility] Address [address] [place] [address] Care Team Providers Name Role Phone Gabrielle Jara M.D. Primary Care Provider Encounter Details Date Type Department Care Team Description 01/13/2017 Hospital Encounter HX [facility] Zach Abdi M.D. 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 However, the narrative phrase printed from the coding software may appear abbreviated, or result in slightly different terminology. Coded By: JIMENA BASSETT Date Saved: 01/17/2017 11:10 am Source: [facility] POWERCHART Document Id: [id number] documented in this encounter Plan of Treatment Not on filedocumented as of this encounter Visit Diagnoses Not on filedocumented in this encounter Care Teams Can Sorter Relationship Specialty Start Date End Date Gabrielle Jara M.D. PCP - General Family Medicine 10/04/13 [address] [place] [address] documented as of this encounter
--- OUTSIDE RECORDS SUMMARY | 2021-11-21 03:04 | XMS_ITS | Encounter Summary ---
:1990 Author Organization [facility] Address [address] [place] [address] Care Team Providers Name Role Phone Gabrielle Jara M.D. Primary Care Provider Encounter Details Date Type Department Care Team Description 11/18/2014 Hospital Encounter [facility] Magali Murrell D.O. [address] [place] [address] (Wo rk) Social History Tobacco Use Types [...] - - Height 179 cm (5' 10.47) 11/18/2014 1:03 PM CDT Body Mass Index - - documented in this encounter Miscellaneous Notes Miscellaneous - Conversion, Historical Provider Ser - 11/18/2014 11:59 PM CDT Coding Summary-Paper Based CODING DATE: 11/23/2014 FINAL [facility] STATUS: * Discharged to Home or Self Care [facility] AD[facility] DX: V89.01 Suspected Problem with Amniotic [...] terminology. Coded By: CATHIE OSEGUERA Date Saved: 11/23/2014 08:59 am Source: [facility] Document Id: [id number] documented in this encounter Plan of Treatment Not on filedocumented as of this encounter Visit Diagnoses Not on filedocumented in this encounter Care Teams Cnc Set Up Operator Relationship Specialty Start Date End Date Gabrielle Jara M.D. PCP - General Family Medicine 10/04/[address] [place] [address] documented as of this encounter
--- OUTSIDE RECORDS SUMMARY | 2021-11-21 03:04 | XMS_ITS | Encounter Summary ---
:1990 Author Organization [facility] Address [address] [place] [address] Care Team Providers Name Role Phone Gabrielle Jara M.D. Primary Care Provider Encounter Details Date Type Department Care Team Description 11/04/2014 Hospital Encounter HX [facility] Se jim Streeter M.D. Social History Tobacco Use Types Packs/Day [...] - - Height 179 cm (5' 10.47) 11/04/2014 11:05 AM CDT Body Mass Index - - documented in this encounter Plan of Treatment Not on filedocumented as of this encounter Visit Diagnoses Not on filedocumented in this encounter Care Teams Commissary Agent Relationship Specialty Start Date End Date Gabrielle Jara M.D. PCP - General Family Medicine 10/04/13 [address] [place] [address] documented as of this encounter
--- OUTSIDE RECORDS SUMMARY | 2021-11-21 03:04 | XMS_ITS | Encounter Summary ---
:1990 Author Organization [facility] Address [address] [place] [address] Care Team Providers Name Role Phone Gabrielle Jara M.D. Primary Care Provider Encounter Details Date Type Department Care Team Description 11/11/2014 Hospital Encounter HX [facility] Macy Bernard, OBSTETRICS D.O. [address] [place] [address] (Wo rk) Social History Tobacco Use Types Packs/Day Years Used Date Smoking Tobacco: Never Assessed Sex Assigned at Date Recorded Not on file documented as of this encounter Last Filed Vital Signs Vital Sign Reading Time Taken Comments Blood Pressure 123/70 11/11/2014 2:20 PM CDT Pulse 91 11/11/2014 2:20 PM CDT Temperature - - Respiratory Rate 18 11/11/2014 2:20 PM CDT Oxygen Saturation - - Inhaled Oxygen Concentration - - Weight 112 kg (246 lb 14.6 oz) 11/11/2014 2:20 PM CDT Height 179 cm (5' 10.47) 11/11/2014 2:20 PM CDT Body Mass Index 34.96 11/11/2014 2:20 PM CDT documented in this encounter Discharge Summaries Shoshana Maddox R.N. - 11/11/2014 2:45 PM CDT Hospital Discharge Instructions [place] [address] [place], [place] [id number] Patient Discharge Instructions Name: CHERRY HALL Current Date: 11/11/2014 14:45:03 : 1990 12:00 AM [facility] Number: [id number] Patient Address: [address] [place] [phone] Patient Primary Care Provider: Name: PCP, ELSEWHERE Phone: Discharge Diagnosis: [facility] would like to thank you for allowing us to assist you with yourhealthcare needs. The following includes patient education materials and information regarding your injury/illness. Comment: CHERRY HALL has been given the following list of follow-up instructions, medication list and patient education materials: Follow-up Instructions Medications Medication/Strength How to Take Indications/Special Instructions/Comments/Notes for Patient Medication Changes/Routing calcium citrate (calcium citrate) 2 Tablet(s), Oral, two times a day multivitamin, ( Multivitamins oral tablet) 1 Tablet(s), Oral, once a day Stop Taking the Following Medications: Medication list as of 11-11-14 14:45 Attention: If you have any medications at [...] Upcoming Appointments Date Time Location Provider 11/11/2014 15:15 [facility] OB OP [facility] Consider Using Patient Online Services [...] dont have one. Go to [email or web address] and click on Create Your Account. Then, follow the directions to complete the online form. Youll be asked for your [facility] number which you can find at [...] felt your baby move all day. ?? [phone], [place] [address]. All rights reserved. This information is not intended as a substitute for professional medical care. Always follow your healthcare professional's instructions. This document has images extracted. Please consider using [employer] for all your patient education needs. Source: [facility] POWERCHART Document Id: [id number] Shoshana Maddox R.N. - 11/11/2014 2:45 PM CDT Hospital Discharge Medication List [facility] [address] [place] [address] Discharge Medication List Name: CHERRY HALL Current Date: 11/11/2014 14:45:02 : 1990 12:[birth year] AM [facility] Number: [id number] Patient Address: [address] [phone] Patient Primary Care Provider: Name: PCP, BAKARI Phone: Discharge Diagnosis: [facility] in [place] would like to thank you for allowing [...] the Following Medications: Medication list as of 11-11-14 14:45 Attention: If you have any medications at [...] Comment: Electronically Signed By: Signed On: Source: [facility] POWERCHART Document Id: [id number] documented in this encounter Progress Notes Macy Bernard D.O. - 11/11/2014 12:16 PM CDT TESTING NOTE This patient is at 36 weeks GA here for NST due to diagnosis of oligo. NST is reactive with baseline rate of 145 bpm. There are at least 2 accelerations greater than 15 beats above the baseline lasting at least 15 seconds over 20 minutes. Moderate variability. neg decelerations. Recommended follow up is in 1 week. eMño CARRERA Electronically Signed By: MACY BERNARD DO On: 11/12/2014 12:16 PM Source: [facility] [employer] Document Id: [id number] documented in this encounter Nursing Notes Shoshana Maddox R.N. - 11/11/2014 2:55 PM CDT Antepartum Testing Antepartum Testing Entered On: 11/11/2014 15:06 CDT Performed On: 11/11/2014 14:55 CDT by SHOSHANA MADDOX RN NST, Baby A/Prabhakar Indication for Test : Other: Low WILVER Heart Rate Baseline : 140 Variability : Moderate Accelerations : Present Decelerations : Absent Contractions : Present Contraction Frequency : x1 Interpretation : Reactive Provider : MACY BERNARD ASHLEY RN - 11/11/2014 15:05 CDT Source: [facility]™ Document Id: [id number] CDT!11 Shoshana Maddox R.N. - 11/11/2014 2:55 PM CDT Ongoing Assessment Antepartum Ongoing Assessment Antepartum Entered On: 11/11/2014 15:07 CDT Performed On: 11/11/2014 14:55 CDT by SHOSHANA MADDOX RN OB Exam Cervix Dilation : 3 Cervix Effacement : 70 Cervical Consistency : Medium Station : -2 Cervical Position : Mid Membrane Status : Intact Amniotic Fluid Amount : None Presenting Part : Vertex SHOSHANA MADDOX RN - 11/11/2014 15:06 CDT Cardiovascular Antiembolism Device Yes/No : No SHOSHANA MADDOX RN - 11/11/2014 15:06 CDT Psycho/Emotional Affect/Behavior : Calm, Cooperative, Appropriate Pain Symptoms : Yes SHOSHANA MADDOX RN - 11/11/2014 15:06 CDT Pain Scale Pain Scale Verbal 0-10 : Open SHOSHANA MADDOX RN - 11/11/2014 15:06 CDT Pain Pain Assessment Grid Pain 1 Location : Lower back Laterality : Left Intensity : 5 SHOSHANA MADDOX RN - 11/11/2014 15:06 CDT Source: [employer] Document Id: [id number] CDT!23 documented in this encounter Miscellaneous Notes Miscellaneous - Macy Bernard D.O. - 11/13/2014 9:23 AM CDT From: MACY BERNARD DO To: CHERRY HALL Sent: 11/13/2014 09:23:30 CDT Your urinalysis and urine culture did not show an infection. Please call with questions. Dr. Bernard Source: [employer] Document Id: [id number] Miscellaneous - Conversion, Historical Provider Ser - 11/11/2014 2:55 PM CDT Coding Summary-Paper Based CODING DATE: 11/16/2014 FINAL [facility] STATUS: * Discharged to Home or Self Care PAYOR: [facility] ADMIT DX: 658.03 Oligohydramnios, Antepartum Condition or Complication REASON FOR VISIT DX: 658.03 Oligohydramnios, Antepartum Condition or Complication FINAL DX: PRINCIPAL: 658.03 Oligohydramnios, Antepartum Condition or Complication SECONDARY: PROCEDURES DOCTOR NAME DATE NOTE: The code number assigned matches the documented diagnosis and / or procedure in the patient's chart. However, the narrative phrase printed from the coding software may appear abbreviated, or result in slightly different terminology. Coded By: CATHIE OSEGUERA Date Saved: 11/15/2014 07:23 am Source: [employer] Document Id: [id number] documented in this encounter Plan of Treatment Not on filedocumented as of this encounter Procedures Procedure Name Priority Date/Time Associated Diagnosis Comme nts BACTERIAL CULTURE, Routine 11/11/2014 3:27 PM Res ults for this AEROBIC, URINE CDT procedure are in the results section. URINALYSIS, Routine 11/11/2014 3:00 PM Results f or this MIDSTREAM, WITH CDT procedure ar e in CULTURE IF the results INDICATED section. documented in this encounter Results Bacterial Culture, Aerobic, Urine (11/11/2014 3:27 PM CDT) [facility] Method Time Signature Bacterial POWERCHART Culture, Aerobic, Urine HXPre 10,000 - POWERCHART 50,000 cfu/mL Mixed hayley (multiple species present) HXFinal 50,000 - POWERCHART 100,000 cfu/mL Mixed hayley (multiple species present) Specimen Anatomical Collection Method Collection Time Receive d Time (Source) Location / / Volume Laterality Urine, First 11/11/2014 3:27 PM 5 3:27 Voided CDT PM CDT Macy Bernard D.O. LAB MICROBIOLOGY - GENERAL O RDERABLES Performing Organization Address [facility] Phon e Number POWERCHART (ABNORMAL) Urinalysis, Midstream, with culture if indicated (11/11/2014 3:00 PM CDT) [facility] Method Time Signature HXUr Color Yellow Colorless POWERCHART Clarity Slightly Clear POWERCHART Cloudy (A) Glucose Negative Negative POWERCHART MGDL Protein, Ur, Trace Negative POWERCHART Dip MGDL HXBILIRUBIN Negative Negative POWERCHART Urobilinogen 0.2 0.2 MGDL POWERCHART pH, POCT, Urine 7.0 <5.0 POWERCHART HXBLOOD Negative Negative POWERCHART Ketones, QL(U) Negative Negative POWERCHART MGDL HXNITRITE Negative Negative POWERCHART Leukocyte Small (A) Negative POWERCHART Esterase Specific 1.019 POWERCHART [place], POCT, U HXUR WBC. None Seen None Seen POWERCHART HPF HXUR RBC. Occ-2 None Seen POWERCHART HPF Squamous 4-10 (A) None Seen POWERCHART Epithelial HPF Mucus Present (A) None Seen POWERCHART HXUR Bacteria, Present (A) None Seen POWERCHART Specimen (Source) Anatomical Collection Method Collection Time Re ceived Time Location / / Volume Laterality Urine, First 11/11/2014 3:00 PM Voided CDT Macy Bernard D.O. LAB URINE ORDERABLES Performing Organization Address City/State/ZIP Code Phon e Number POWERCHART documented in this encounter Visit Diagnoses Not on filedocumented in this encounter Care Teams Stunt Driver Relationship Specialty Start Date End Date Gabrielle Jara M.D. PCP - General Family Medicine 10/04/[address] [place] [address] documented as of this encounter
--- OUTSIDE RECORDS SUMMARY | 2021-11-21 03:04 | XMS_ITS | Encounter Summary ---
:1990 Author Organization [facility] Address [address] [place] [address] Care Team Providers Name Role Phone Gabrielle Jara M.D. Primary Care Provider Encounter Details Date Type Department Care Team Description 11/30/2014 Hospital Encounter [facility] Barbie Herrera M.D. [address] [place] [address] (Wo rk) Social History Tobacco [...] - - Height 179 cm (5' 10.47) 11/30/2014 3:32 PM CDT Body Mass Index - - documented in this encounter Miscellaneous Notes Miscellaneous - Conversion, Historical Provider Ser - 11/30/2014 11:59 PM CDT Coding Summary-Paper Based CODING DATE: 12/05/2014 FINAL [facility] STATUS: * [facility] Home or Self [facility]: V89.01 Suspected Problem with [...] terminology. Coded By: ANDREW BALLESTEROS Date Saved: 12/05/2014 09:06 am Source: [employer] Document Id: [id number] documented in this encounter Plan of Treatment Not on filedocumented as of this encounter Visit Diagnoses Not on filedocumented in this encounter Care Teams Motorcycle Racer Relationship Specialty Start Date End Date Gabrielle Jara M.D. PCP - General Family Medicine 10/04/13 [address] [place] [address] documented as of this encounter
--- OUTSIDE RECORDS SUMMARY | 2021-11-21 03:04 | XMS_ITS | Encounter Summary ---
:1990 Author Organization [facility] Address [address] [place] [address] Care Team Providers Name Role Phone Gabrielle Jara M.D. Primary Care Provider Encounter Details Date Type Department Care Team Description 02/11/[address] [facility] [address] [place], [place] [address] (Wo rk) Social History Tobacco Use Types Packs/Day Years Used Date Smoking Tobacco: Former Sex Assigned at Date Recorded Not on file documented as of this encounter Progress Notes Kristine Rain, RPedroN., JL-BC - 02/11/2017 12:08 PM CDT S: This patient is here today for Nexplanon removal. We reviewed R/B/A and the removal procedure today. Questions are answered. She would like to proceed. She also mentions that she has started again with kidney pain. She recently was treated for a kidneyinfection, symptoms resolved after 14 day antibiotics. But, now 2 week later she is again experiencing flank pain - L side. She denies blood in the urine. no urinary frequency, urgency, fevers, chills. Allergies: No Known Medication Allergies VITAL SIGNS BLOOD PRESSURE Systolic Blood Pressure: 106 mmHg Diastolic Blood Pressure: 62 mmHg MEASUREMENTS Height: 179 cm Actual Weight: 89.1 kg Body Mass Index: 27.81 kg/m2 O: Well woman, NAD Left flank tender to palpaton Pause for the cause has been completed prior to Nexplanon removal 1. The patient was identified by both name and date of yes 2. The correct site was identified yes 3. Site marked by provider yes 4. Written informed consent correct and signed or verbal authorization to proceed is obtained - yes. 5. Verify necessary supplies, equipment, and diagnostics are available - yes 6. Time out is performed immediately prior to procedure - yes With patient supine, the L arm was flexed at the elbow and externally rotated. The removal site was marked with a sterile marking pen at the distal end of the palpable jeferson. The L arm prepped with betadine solution. The removal site was infiltrated with 0.5 mL of 1% lidocaine. A 2-3 mm incision is madeand the jeferson is removed intact with a curved hemostat. The site is dressed with a steristrip, bandage, and pressure dressing. There were no complications, no blood loss. Labs: -----URINE/STOOL----- UA Color: Yellow (02/11/17) UA Clarity: Clear (02/11/17) UA Spec Grav: 1.002 (02/11/17) UA pH: 6.0 (02/11/17) UA Protein: Negativ (02/11/17) UA Glucose: Negativ (02/11/17) UA Ketones: Negativ (02/11/17) UA Bili: Negativ (02/11/17) UA Urobilinogen: 0.2 (02/11/17) UA Blood: Negativ (02/11/17) UA Nitrite: Negativ (02/11/17) UA Leuk Est: Negativ (02/11/17) UR WBC: Occ-3 (02/11/17) UR RBC: None Seen (02/11/17) UR Mucous: Present Abnormal (02/11/17) A/P: desires Nexplanon removal today. Nexplanon is removed without difficulty. return warnings are given.Continue with OCPs as prescribed left flank pain, recently treated for kidney infection. UA normal She is encouraged to follow up with PCP. NSAIDs, heat advised. Electronically Signed By: KRISTINE RAIN R.N., WHNP-BC On: 02/11/2017 12:13 PM Source: [facility] POWERCHART Document Id: [id number] documented in this encounter Miscellaneous Notes Miscellaneous - [facility] R.N., [facility] - 02/11/2017 12:07 PM CDT Ambulatory Patient Summary [facility] [address], [address] [place], [place] [phone] Visit Information Name: CHERRY HALL [facility] Number: [id number] Current Date: 02/11/2017 12:07:43 Physicians Attending Provider: KRISTINE RAIN R.N., [facility] Primary Care Provider: PCP, BAKARI CHERRY HALL [...] oral tablet) 1 Tablet(s), Oral, once a dayNew *magnesium citrate (magnesium citrate) 50 mg, Oral, metroNIDAZOLE topical (MetroGel-Vaginal 0.75% vaginal gel with applicator) 1 carine, Vaginal, once a day (at bedtime) x 10 day(s) 1 carine daily at bedtime for 10 days, then 1 carine twice weekly for 6 months *Misc Prescription (Misc Prescription) Probiotic twice daily *multivitamin (multivitamin) 1 Tablet(s), Oral, once a day * You have let us know that you are not taking this medication as listed. Please talk with your primary care provider or the health care provider who prescribed the medication as soon as possible. Stop Taking the Following Medications: Medication list as of 02-11-17 12:07 Attention: If you have any medications at [...] Signed By: KRISTINE RAIN R.N., WHNP-BC Signed On:11-FEB-2017 12:07:41 Your Allergies & Intolerances Substance Reaction Symptoms [...] if you dont have one. Go to [email or web address] and click on Create Your Account. Then, follow the directions to complete the online form. Youll be asked for your [facility] number which you can find at the top of this document. Your Goals/Additional instructions: Source: [facility] POWERCHART Document Id: [id number] Miscellaneous - Kristine Rain R.N., WHNP-BC - 02/11/2017 12:07 PM CDT Ambulatory Discharge Medication List [facility] [address] [place], [place] [phone] Visit Information Name: CHERRY HALL [facility] Number: [id number] Current Date: 02/11/2017 12:07:43 Attending Provider: KRISTINE RAIN R.N., WHNP-BC Primary [...] oral tablet) 1 Tablet(s), Oral, once a dayNew *magnesium citrate (magnesium citrate) 50 mg, Oral, metroNIDAZOLE topical (MetroGel-Vaginal 0.75% vaginal gel with applicator) 1 carine, Vaginal, once a day (at bedtime) x 10 day(s) 1 carine daily at bedtime for 10 days, then 1 carine twice weekly for 6 months *Misc Prescription (Misc Prescription) Probiotic twice daily *multivitamin (multivitamin) 1 Tablet(s), Oral, once a day * You have let us know that you are not taking this medication as listed. Please talk with your primary care provider or the health care provider who prescribed the medication as soon as possible. Stop Taking the Following Medications: Medication list as of 02-11-17 12:07 Attention: If you have any medications at [...] of emergency. Electronically Signed By: KRISTINE RAIN R.N. [facility] Signed On:11-FEB-2017 12:07:41 Additional Information: Source: [facility] POWERCHART Document Id: [id number] Miscellaneous - Jia Coello L.P.N. - 02/11/2017 10:22 AM CDT Adult Va Underwriter Intake/History Adult Va Underwriter Intake/History Entered On: 02/11/2017 10:25 CDT Performed On: 02/11/2017 10:22 CDT by JIA COELLO LPN Intake Chief Complaint : Would like Nexplanon removed. Left kidney pain began last evening. LMP Date : Nexplanon Heart Rhythm : Regular Systolic Blood Pressure : 106 mmHg Diastolic Blood Pressure : 62 mmHg NIBP Mean : 77 mmHg BP Location : Right upper extremity Blood Pressure Cuff Size : Regular Height : 179 cm(Converted to: 5 ft 10 inch(es), 70 inch(es)) Actual Weight : 89.1 kg(Converted to: 196 lb 7 oz) Weight Source : Standing scale Dosing Weight Clinic : 89.1 kg Clinic BSA : 2.1 Body Mass Index : 27.81 kg/m2 JIA COELLO LPN - 02/11/2017 10:22 CDT General Info Information Given By : Patient Languages : [place] Islander Is Patient Female and 13-50 no hysterectomy : Yes Status : Patient denies Are you ? : No JIA COELLO LPN - 02/11/2017 10:22 CDT Subjective Pain Symptoms : Yes JIA COELLO LPN - 02/11/2017 10:22 CDT Pain Scale Pain Scale Verbal 0-10 : Open JIA COELLO LPN - 02/11/2017 10:22 CDT Pain Pain Assessment Grid Pain 1 Location : Other: left kidney Intensity : 7 Quality : Aching, Pressure, Sharp JIA COELLO LPN - 02/11/2017 10:22 CDT Dependent Habits Exposure to Tobacco Smoke : Other: Former smoker: quit 03/2014 Smoking Status : Former smoker Tobacco 2A : Yes Tobacco Use/Currently Using : No Tobacco Use/Last 30 Days : No Tobacco Use/Last 12 months : No JIA COELLO LPN - 02/11/2017 10:22 CDT Caffeine Use Grid Caffeine Use : None Type : Coffee Frequency : Daily Amount : 1 JIA COELLO LPN - 02/11/2017 10:22 CDT Recreational Drug Use Grid Drug Use : None JIA COELLO LPN - 02/11/2017 10:22 CDT Source: [facility] POWERCHART Document Id: [id number]!48 documented in this encounter Plan of Treatment Not on filedocumented as of this encounter Procedures Procedure Name Priority Date/Time Associated Diagnosis Comme nts URINALYSIS, Routine 02/11/2017 10:30 AM Results for this DIPSTICK CDT procedure are i n the results section. documented in this encounter Results (ABNORMAL) Urinalysis no Reflex (02/11/2017 10:30 AM CDT) [facility] Method Time Signature HXUr Color Yellow Colorless POWERCHART Clarity Clear Clear POWERCHART Glucose Negative Negative MGDL POWERCHART Protein, Ur, Dip Negative Negative MGDL POWERCHAR T HXBILIRUBIN Negative Negative POWERCHART Urobilinogen 0.2 0.2 MGDL POWERCHART Comment: Reference Range Urobilinogen: 0.2-1.0 mg/dL pH, POCT, Urine 6.0 <5.0 POWERCHART Comment: UA pH Reference Range pH: 5.0-8.0 HXBLOOD Negative Negative POWERCHART Ketones, QL(U) Negative Negative MGDL POWERCHART HXNITRITE Negative Negative POWERCHART Leukocyte Esterase Negative Negative POWERCHART Specific [place], POCT, U 1.002 SYLVIA RCHART Comment: Reference Range Specific [place]: 1.000-1.035 HXUR WBC. Occ-3 None Seen HPF POWERCHART HXUR RBC. None Seen None Seen HPF POWERCHART Mucus Present (A) None Seen POWERCHART Specimen (Source) Anatomical Collection Method Collection Time Re ceived Time Location / / Volume Laterality Urine, First 02/11/2017 10:30 Voided AM CDT EVELIO Hernández APRN- LAB URINE ORDERABLES Performing Organization Address City/State/ZIP Code Phon e Number POWERCHART POWERCHART NA documented in this encounter Visit Diagnoses Not on filedocumented in this encounter Care Teams Crib Tender Relationship Specialty Start Date End Date Gabrielle Jara M.D. PCP - General Family Medicine 10/04/[address] [place] [address] documented as of this encounter
--- OUTSIDE RECORDS SUMMARY | 2021-11-21 03:04 | XMS_ITS | Encounter Summary ---
:1990 Author Organization [facility] Address [address] [place] [address] Care Team Providers Name Role Phone Gabrielle Jara M.D. Primary Care Provider Reason for Visit Reason Comments Med Refill Encounter Details Date Type Department Care Team Description 11/07/2017 Refill Department of [facility] Lizzy Jara M.D. Med Refill Medicine, [facility] [address] [place] [address] [place] [address] [facility] [place] [address] Social History Tobacco Use Types Packs/Day Years Used Date Smoking Tobacco: Some Days Sex Assigned at Date Recorded Not on file documented as of this encounter Miscellaneous Notes Telephone Encounter - Katherin Sanders - 11/07/2017 7:57 AM CDT This encounter was created in error - please disregard. documented in this encounter Plan of Treatment Not on filedocumented as of this encounter Visit Diagnoses Not on filedocumented in this encounter Care Teams Internal Control Consultant Relationship Specialty Start Date End Date Gabrielle Jara M.D. PCP - General Family Medicine 10/04/[address] [place] [phone] documented as of this encounter
--- OUTSIDE RECORDS SUMMARY | 2021-11-21 03:04 | XMS_ITS | Encounter Summary ---
:1990 Author Organization [facility] Address [address] [place] [address] Care Team Providers Name Role Phone Gabrielle Jara M.D. Primary Care Provider Encounter Details Date Type Department Care Team Description 01/17/2015 Hospital Encounter HX [facility] OBGYN Cecil Rain, Anatoliy AVINA, NP- [address] [place], [place] [phone] (Wo rk) Social History Tobacco Use Types Packs/Day Years Used Date Smoking Tobacco: Never Assessed Sex Assigned at Date Recorded Not on file documented as of this encounter Last Filed Vital Signs Vital Sign Reading Time Taken Comments Blood Pressure 126/80 01/17/2015 9:46 AM CDT Pulse 100 01/17/2015 9:46 AM CDT Temperature - - Respiratory Rate 16 01/17/2015 9:46 AM CDT Oxygen Saturation - - Inhaled Oxygen Concentration - - Weight 104 kg (228 lb 9.9 oz) 01/17/2015 9:46 AM CDT Height 179 cm (5' 10.47) 01/17/2015 9:46 AM CDT Body Mass Index 32.37 01/17/2015 9:46 AM CDT documented in this encounter Progress Notes Cecil Rain, RPedroN. - 01/17/2015 10:29 AM CDT 6 week pp visit and Nexplanon insertion This patient is here for a 6-week checkup. She had a vaginal delivery of a viable girl Asha weight 7 pounds 5 oz., with no complications. Since delivery, she has been breast feeding. She has no signs of infection, bleeding or other complications. She is not . We discussed contraception and she has chosen Nexplanon for contraceptive method. EXAM: VITAL SIGNS Temperature Core: 36.8 Peripheral Pulse Rate: 100 Respiratory Rate: 16 BLOOD PRESSURE Systolic Blood Pressure: 126 Diastolic Blood Pressure: 80 MEASUREMENTS Height: 179 Actual Weight: 103.7 Body Mass Index: 32.36 HEENT: grossly normal. NECK: no lymphadenopathy or thyroidomegaly. LUNGS: CTA X 2, no rales or crackles. BACK: No spinal or CVA tenderness. HEART: RRR without murmurs clicks or gallops. ABDOMEN: soft, non tender, good bowel sounds, without masses rebound, guarding or tenderness. PELVIC: External genitalia: normal without lesion. Vagina: normal mucosa and rugae, no discharge. Cervix: multiparous, well healed, without lesion. Uterus: non in size, firm , mobile, no lesions. Adnexa: non tender, without masses EXTREMITIES: Warm to touch, good pulses, no ankle edema or calf tenderness. NEUROLOGIC: grossly normal. Pause for the cause has been completed prior to Nexplanon insertion 1. The patient was identified by both [...] at the elbow and externally rotated. The insertion site was marked with a sterile marking pen on the inner side about 8-10 cm from medial epicondyle of the humerus. A second freddy was made about 4 cm proximal to the first freddy to serve as the direction guide. The L arm prepped with betadine solution. The insertion site was infiltrated with 2cc of 1% lidocaine. The Nexplanon applicator was removed from the container using sterile technique. The transparent protection cap was removed from the needle. The skin was stretched with my thumb and index finger and the skin was punctured with the tip of the needle angled about 30 degrees. While lifting the skin with the tip of the needle, the needle was inserted its full length. The purple slider was moved back until it stopped and the applicator was removed without difficulty. The Nexplanon jeferson was palpated by me and by the patient. A bandage was placed over the injection site and a pressure dressing placed around the arm. There were no complications, no blood loss. ASSESSMENT: Normal 6-week exam after vaginal delivery Desires nexplanon for contraception PLAN: Nexplanon inserted. Return to clinic in 1 year for annual exam and pap smear Electronically Signed By: CECIL RAIN ECD On: 01/17/2015 10:33 AM Source: [facility] POWERCHART Document Id: [id number] documented in this encounter Miscellaneous Notes Miscellaneous - Cecil Rain, R.N. - 01/17/2015 10:35 AM CDT Ambulatory Patient Summary [address] [id number] Visit Information Name: CHERRY HALL [facility] Number: [id number] Current Date: 01/17/2015 10:35:48 Physicians Attending Provider: CECIL RAIN ECD Primary Care Provider: PCP, ELSEWHERE CHERRY HALL [...] 1 cap, Oral, two times a day etonogestrel (etonogestrel) Implant, once New ibuprofen (ibuprofen 600 mg oral tablet) 1 Tablet(s), Oral, every 6 hours as needed for Pain multivitamin, ( Multivitamins oral tablet) 1 Tablet(s), Oral, once a day Stop Taking the Following Medications: Medication list as of 01-17-15 10:35 Attention: If you have any medications at home that are not on this list, DO NOT take them until youcontact your provider for clarification. Give a copy of your medication list to your primary care provider. Update your medication list any time medications or doses are changed and carry your medication list at all times in case of emergency. Electronically Signed By: CECIL RAIN ECD Signed On:17-JAN-2015 10:35:43 Your Allergies & Intolerances Substance Reaction Symptoms [...] if you dont have one. Go to [email or web address] and click on Create Your Account. Then, follow the directions to complete the online form. Youll be asked for your [facility] number which you can find at the top of this document. Your Goals/Additional instructions: Source: [facility] POWERCHART Document Id: [id number] Miscellaneous - Cecil Rain, R.N. - 01/17/2015 10:35 AM CDT Ambulatory Discharge Medication List [address] [id number] Visit Information Name: CHERRY HALL [facility] Number: [id number] Visit Date: 01/17/2015 10:35:47 Attending Provider: CECIL RAIN NP Primary Care Provider: PCP, ELSEWHERE CHERRY HALL [...] 1 cap, Oral, two times a day etonogestrel (etonogestrel) Implant, once New ibuprofen (ibuprofen 600 mg oral tablet) 1 Tablet(s), Oral, every 6 hours as needed for Pain multivitamin, ( Multivitamins oral tablet) 1 Tablet(s), Oral, once a day Stop Taking the Following Medications: Medication list as of 01-17-15 10:35 Attention: If you have any medications at home that are not on this list, DO NOT take them until youcontact your provider for clarification. Give a copy of your medication list to your primary care provider. Update your medication list any time medications or doses are changed and carry your medication list at all times in case of emergency. Electronically Signed By: CECIL RAIN ECD Signed On:17-JAN-2015 10:35:43 Additional Information: Source: [facility] POWERCHART Document Id: [id number] Miscellaneous - Nell Miller, L.P.N. - 01/17/2015 9:46 AM CDT Adult Science Teacher Intake/History Adult Science Teacher Intake/History Entered On: 01/17/2015 9:51 CDT Performed On: 01/17/2015 9:46 CDT by NELL MILLER CANAL BOAT CAPTAIN, RT Intake Chief Complaint : 6 week pp Temperature Core : 36.8 DegC(Converted to: 98.2 DegF) Peripheral Pulse Rate : 100 /min Respiratory Rate : 16 /min Systolic Blood Pressure : 126 mmHg Diastolic Blood Pressure : 80 mmHg NIBP Mean : 95 mmHg BP Location : Left upper extremity Blood Pressure Cuff Size : Large Height : 179 cm(Converted to: 5 ft 10 inch(es), 70 inch(es)) Actual Weight : 103.7 kg(Converted to: 228 lb 10 oz) Weight Source : Standing scale Dosing Weight Clinic : 103.7 kg Clinic BSA : 2.27 Body Mass Index : 32.36 kg/m2 KRISS MILLERTESFAYE Rascon LPN, RT - 01/17/2015 9:46 CDT General Info Information Given By : Patient Preferred Communication Mode : Verbal Languages : Guamanian Is Patient Female and 13-50 no hysterectomy : No ROBERTKRISSTESFAYE Rascon LPN, RT - 01/17/2015 9:46 CDT Subjective Pain Symptoms : No ROBERTKRISSTESFAYE Rascon LPN, RT - 01/17/2015 9:46 CDT Dependent Habits Tobacco Use/Currently Using : No Exposure to Tobacco Smoke : Other: Former smoker: quit 03/2014 Smoking Status : Former smoker ROBERTKRISSTESFAYE Rascon LPN, RT - 01/17/2015 9:46 CDT Tobacco Use Grid Type : Other: former NELL MILLER LPN, RT - 01/17/2015 9:46 CDT Caffeine Use Grid Caffeine Use : None Type : Coffee Frequency : Daily Amount : 1 NELL MILLER Abiodun OLIVEIRA, RT - 01/17/2015 9:46 CDT Recreational Drug Use Grid Drug Use : None ROBERT NELL Rascon LPN, RT - 01/17/2015 9:46 CDT Source: [employer] Document Id: [id number]!40 documented in this encounter Plan of Treatment Not on filedocumented as of this encounter Visit Diagnoses Not on filedocumented in this encounter Care Teams Wood Patternmaker Relationship Specialty Start Date End Date Gabrielle Jara M.D. PCP - General Family Medicine 10/04/13 [address] [place] [address] documented as of this encounter
--- OUTSIDE RECORDS SUMMARY | 2021-11-21 03:04 | XMS_ITS | Encounter Summary ---
:1990 Author Organization [facility] Address [address] [place] [address] Care Team Providers Name Role Phone Gabrielle Jara M.D. Primary Care Provider Encounter Details Date Type Department Care Team Description 02/03/[address] [facility] Liam Aly M.D. [address] [place] [phone] (Wo rk) Social History Tobacco Use [...] - - Height 179 cm (5' 10.47) 02/03/2017 9:29 AM CDT Body Mass Index - - documented in this encounter Miscellaneous Notes Miscellaneous - Conversion, Historical Provider Ser - 02/03/2017 11:59 PM CDT Coding Summary-Paper Based CODING DATE: 02/07/2017 FINAL [facility] STATUS: * Discharged to Home or Self Care PAYOR: [employer] ADMIT DX: REASON FOR VISIT DX: FINAL DX: PRINCIPAL: N94.10 Unspecified dyspareunia SECONDARY: N92.1 Excessive and frequent menstruation with irregular cycle N83.292 Other ovarian cyst, left side PROCEDURES DOCTOR NAME DATE NOTE: The code number assigned matches the documented diagnosis and / or procedure in the patient's chart. However, the narrative phrase printed from the coding software may appear abbreviated, or result in slightly different terminology. Coded By: JIMENA BASSETT Date Saved: 02/07/2017 11:21 am Source: [facility] POWERCHART Document Id: [id number] documented in this encounter Plan of Treatment Not on filedocumented as of this encounter Visit Diagnoses Not on filedocumented in this encounter Care Teams Cashier General Relationship Specialty Start Date End Date Gabrielle Jara M.D. PCP - General Family Medicine 10/04/[address] [place] [address] documented as of this encounter
--- OUTSIDE RECORDS SUMMARY | 2021-11-21 03:04 | XMS_ITS | Encounter Summary ---
:1990 Author Organization [facility] Address [address] [place] [address] Care Team Providers Name Role Phone Gabrielle Jara M.D. Primary Care Provider Encounter Details Date Type Department Care Team Description 11/04/2014 Hospital Encounter HX [facility] OBSTETRICS Moy Peter M.D. Social History Tobacco Use Types Packs/Day Years Used Date Smoking Tobacco: Never Assessed Sex Assigned at Date Recorded Not on file documented as of this encounter Last Filed Vital Signs Vital Sign Reading Time Taken Comments Blood Pressure 116/67 11/04/2014 1:30 PM CDT Pulse 88 11/04/2014 1:30 PM CDT Temperature - - Respiratory Rate - - Oxygen Saturation - - Inhaled Oxygen Concentration - - Weight - - Height 179 cm (5' 10.47) 11/04/2014 1:30 PM CDT Body Mass Index - - documented in this encounter Discharge Summaries Aislinn Ying R.N. - 11/04/2014 2:17 PM CDT Hospital Discharge Instructions [address] [address] Patient Discharge Instructions Name: CHERRY HALL Current Date: 11/04/2014 14:17:37 : 1990 12:00 AM [facility] Number: [id number] Patient Address: [address] [facility] [phone] Patient Primary Care Provider: Name: PCP, BAKARI Phone: Discharge Diagnosis: [facility] would like to thank you for allowing us to assist you with yourhealthcare needs. The following includes patient education materials and information regarding your injury/illness. Comment: Patient educated regarding warning signs of labor, preeclampsia, fever, rupture of membranes, leaking, decreased movement, vaginal bleeding, persistent nausea and vomitting, signs and symptoms of viral and bacterial infection. CHERRY HALL MEENA has been given the following list of follow-up instructions, medication list and patient education materials: Follow-up Instructions With: Address: When: Follow up on Friday for BPP and NST. Radiology at 2:[address] for NST and to seeMD. In 3 days 11/07/2014 Comments: Medications Medication/Strength How to Take Indications/Special Instructions/Comments/Notes for Patient Medication Changes/Routing calcium citrate (calcium citrate) 2 Tablet(s), Oral, two times a day multivitamin, ( Multivitamins oral tablet) 1 Tablet(s), Oral, once a day Stop Taking the Following Medications: Medication list as of 11-04-14 14:17 Attention: If you have any medications at [...] Appointments Date Time Location Provider 11/07/2014 14:30 [facility] Ultrasound [facility] US RM 2 11/07/2014 15:15 [facility] OB OP [facility] Place 11/10/2014 15:00 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 Go to [email or web address] and click on Create Your Account. Then, follow the directions to complete the online form. Youll be asked for your [facility] number which you can find at the top of this document. I, RAFAEL, CHERRY ROBLEDO , have received the attached patient education [...] felt your baby move all day. ?? [id number] [facility], [address] [place] [address], [place] [address]. All rights reserved. This information is not intended as a substitute for professional medical care. Always follow your healthcare professional's instructions. This document has images extracted. Please consider using [employer] for all your patient education needs. Source: [facility] POWERCHART Document Id: [id number] Aislinn Ying R.N. - 11/04/2014 2:17 PM CDT Hospital Discharge Medication List [facility] [address] [place] [address] Discharge Medication List Name: CHERRY HALL Current Date: 11/04/2014 14:17:36 : 1990 12:00 AM [facility] Number: [id number] Patient Address: [address] [id number] Patient Primary Care Provider: Name: PCP, BAKARI Phone: Discharge Diagnosis: [facility] in [place] would like to thank you for allowing [...] Following Medications: Medication list as of 11-04-14 14:17 Attention: If you have any medications at [...] Comment: Electronically Signed By: Signed On: Source: [facility] POWERCHART Document Id: [id number] documented in this encounter Progress Notes Kristi Peter M.D. - 11/04/2014 12:00 AM CDT [id number] REVISION HISTORY November 11, 2014 at 2:20 p.m. - Duplicate report recreated to correct the document type by [employer] TESTING NOTE This patient is at 35 weeks GA here for NST due to diagnosis of decreased FM and complaints of contractions. NST is reactive with baseline rate of 140 bpm. There are at least 2 accelerations greater than 15 beats above the baseline lasting at least 15 seconds over 20 minutes. Moderate variability. Neg decelerations. No contractions Amnisure negative. BPP /. WILVER 6.4. A: Cat 1 tracing, Borderline WILVER P: 1. Rec commend repeat NST/BPP on Friday Signature Line Electronically Signed By: KRISTI PETER MD On: 11/04/2014 02:30 PM Kristi Peter M.D./huey Electronically Signed By: KRISTI PETER MD On: 11/15/2014 12:40 PM Source: [facility] MHSDOLBEYNONRADSYS Document Id: [id number] documented in this encounter Nursing Notes Aislinn Ying R.N. - 11/04/2014 2:23 PM CDT Nursing Discharge Summary Document Has Been Updated Nursing Discharge Summary Entered On: 11/04/2014 14:24 CDT Performed On: 11/04/2014 14:23 CDT by AISLINN YING RN GA Information Discharged to : Home independently Current Home Treatments : None Home Equipment : None Professional Skilled Services : None Special Services and Community Resources : None Mode of Discharge : Ambulatory Discharge Transportation : Private vehicle Accompanied By : Nurse Date/Time of Discharge : 11/04/2014 14:21 CDT AISLINN YING RN - 11/04/2014 14:23 CDT Education General Patient Education [employer] Topics : Discharge instructions/Medication list, When to call health care provider AISLINN YING RN- 11/04/2014 14:24 CDT Individuals Taught : Patient Barriers to Learning : None evident Teaching Method : Explanation Teaching Evaluation : Verbalizes understanding AISLINN YING RN - 11/04/2014 14:23 CDT Valuables/Belongings AISLINN YING RN - 11/04/2014 14:26 CDT Belongings Sent Home With : Patient Home Medication Disposition : None brought in with patient AISLINN YING RN - 11/04/2014 14:24 CDT [facility] Document Id: [id number] CDT!3 Aislinn Ying R.N. - 11/04/2014 2:01 PM CDT Ongoing Assessment Antepartum Ongoing Assessment Antepartum Entered On: 11/04/2014 14:02 CDT Performed On: 11/04/2014 14:01 CDT by AISLINN YING RN FHR, Prabhakar/Baby A Uterine Contraction Monitoring [...] FHR Deceleration : Absent FHR Comment : Dr. Peter to bedside and discussed plan of care with patient. D/C to home with BPP and NST on Friday. AISLINN YING RN - 11/04/2014 14:01 CDT Cardiovascular Antiembolism Device Yes/No : No AISLINN YING RN - 11/04/2014 14:01 CDT Psycho/Emotional Pain Symptoms : No AISLINN YING RN - 11/04/2014 14:01 CDT [facility] Document Id: [id number] CDT!18 Dyan Mazariegos R.N. - 11/04/2014 11:50 AM CDT Ongoing Assessment Antepartum Ongoing Assessment Antepartum Entered On: 11/04/2014 11:55 CDT Performed On: 11/04/2014 11:50 CDT by DYAN MAZARIEGOS RN FHR, Prabhakar/Baby A Uterine Contraction Intensity, Ext Palp : Not palpable Uterine Contraction Rest Tone, Ext Palp : Soft FHR Monitoring Method : Electronic monitoring FHR Monitoring Frequency : Continuous FHR Baseline : 135 Heart Rate Reactive Prabhakar/Baby A : Yes FHR Baseline Description : Within normal limits FHR Tracing : Category 1 FHR Variability : Marked variability Sinusoidal Prabhakar/Baby A : No FHR Accelerations : Present FHR Deceleration : Absent DYAN MAZARIEGOS RN - 11/04/2014 11:50 CDT Triage Chief Complaint : decreased movement Movement : Present Contractions, Subjective : No Urge To Push, Subjective : No Leaking Fluid, Subjective : No Vaginal Bleeding : No Intensity : 0 Heart Rate : 130 /min Acute Respiratory or Cardiac Distress : No Estimated Urgency Triage : Non-Acute, re-evaluation within 1 hour DYAN MAZARIEGOS RN - 11/04/2014 11:50 CDT Respiratory Respirations : Unlabored Respiratory Pattern : Regular All Lobes Breath Sounds : Clear MAZARIEGOSDYAN RN - 11/04/2014 11:50 CDT Cardiovascular CV Patient Stated Symptoms : None Heart Rhythm : Regular Antiembolism Device Yes/No : No DYAN MAZARIEGOS RN - 11/04/2014 11:50 CDT Neurological Neuro Patient Stated Symptoms : None Orientation : Oriented x 3 Level of Consciousness : Alert DYAN MAZARIEGOS RN - 11/04/2014 11:50 CDT Psycho/Emotional Affect/Behavior : Calm Pain Symptoms : No Feels Rested : Yes DYAN MAZARIEGOS RN - 11/04/2014 11:50 CDT Gastrointestinal GI Patient Stated Symptoms : None Bowel Movement Last Date : 11/03/2014 CDT Bowel Sounds All Quadrants : Present MAZARIEGOSDYAN RN - 11/04/2014 11:50 CDT Nutrition Home Diet : Regular Appetite : Excellent DYAN MAZARIEGOS RN - 11/04/2014 11:50 CDT Genitourinary Patient Stated Symptoms : None DYAN MAZARIEGOS RN - 11/04/2014 11:50 CDT Integumentary Integumentary Patient Stated Symptoms : None Skin Color : Normal for ethnicity Skin Description : Normal Skin Temperature : Warm DYAN MAZARIEGOS RN - 11/04/2014 11:50 CDT Musculoskeletal Musculoskeletal Patient Stated Symptoms : None DYAN MAZARIEGOS RN - 11/04/2014 11:50 CDT Source: [employer] POWERCHART Document Id: [id number] CDT!57 Dyan Mazariegos RBrisa. - 11/04/2014 11:19 AM CDT Antepartum Testing Antepartum Testing Entered On: 11/04/2014 11:24 CDT Performed On: 11/04/2014 11:19 CDT by DYAN MAZARIEGOS RN NST, Baby A/Prabhakar Indication for Test : Decreased movement Heart Rate Baseline : 135 Accelerations : 15 x 15 Decelerations : Absent Contractions : Absent Comment : Baby had an original 10 min period of tachycardia with baseline of 130 and has now within a category 1 pattern, but did not get to finish a 20 minute NST as ultrasound is here for BPP Provider : KRISTI PETER MD, CECILIA RN - 11/04/2014 11:19 CDT Source: [facility] [employer] Document Id: [id number] CDT!9 documented in this encounter Miscellaneous Notes Miscellaneous - Kristi Peter M.D. - 11/04/2014 2:31 PM CDT *The Coding Query From: KRISTI PETER MD To: MARY KAY TORRES; Sent: 11/04/2014 14:31:33 CDT Subject: *The Coding Query Had visit in clinic and NST on L&D. THX, SAT Source: [facility] [employer] Document Id: [id number] Miscellaneous - Conversion, Historical Provider Ser - 11/04/2014 2:21 PM CDT Coding Summary-Paper Based CODING DATE: 11/08/2014 FINAL [facility] STATUS: * Discharged to Home or Self Care PAYOR: MMSI ADMIT DX: 655.73 Decreased Movements Affecting Management of Mother, Antepartum Condition or Complication REASON FOR VISIT DX: 655.73 Decreased Movements Affecting Management of Mother, Antepartum Condition or Complication FINAL DX: PRINCIPAL: 655.73 Decreased Movements Affecting Management of Mother, Antepartum Condition or Complication SECONDARY: 644.03 Threatened Premature Labor, Antepartum Condition or Complication PROCEDURES DOCTOR NAME DATE NOTE: The code number assigned matches the documented diagnosis and / or procedure in the patient's chart. However, the narrative phrase printed from the coding software may appear abbreviated, or result in slightly different terminology. Revised Coded By: CATHIE OSEGUERA Revised Date Saved: 11/07/2014 05:40 pm Source: [facility] [employer] Document Id: [id number] Miscellaneous - Kristi Peter M.D. - 11/04/2014 1:59 PM CDT Addendum by RAYMON MCNULTY on 04 November 2014 16:49:32 CDT From: RAYMON MCNULTY To: KRISTI PETER MD; Sent: 11/04/2014 16:49:32 CDT Subject: RE: Addendum by RAYMON MCNULTY on 04 November 2014 16:49:27 CDT Scheduled. Thank you. sla From: KRISTI PETER MD To: RAYMON MCNULTY; Sent: 11/04/2014 13:59:55 CDT Please schedule patinet for NST and BPP Friday. THX, SAT Source: [facility] [employer] Document Id: [id number] Electronically signed by [facility] Launch Steward [id number] at 09/08/2016 11:09 PM CDT Miscellaneous - Dyan Mazariegos, R.N. - 11/04/2014 1:33 PM CDT Heart Monitoring Heart Monitoring Entered On: 11/04/2014 13:35 CDT Performed On: 11/04/2014 13:33 CDT by DYAN MAZARIEGOS RN FHR, Prabhakar/Baby A Uterine Contraction Monitoring Method : External toco Uterine Contraction Intensity, Ext Palp : Not palpable Uterine Contraction Rest Tone, Ext Palp : [...] Provider Present : Yes FHR Comment : Amnisure semt DYAN MAZARIEGOS RN - 11/04/2014 13:33 CDT Source: [employer] Document Id: [id number] CDT!17 Deepthi - Dyan Mazariegos R.N. - 11/04/2014 1:00 PM CDT Heart Monitoring Heart Monitoring Entered On: 11/04/2014 13:32 CDT Performed On: 11/04/2014 13:00 CDT by DYAN MAZARIEGOS RN FHR, Prabhakar/Baby A Uterine Contraction Monitoring Method : External toco Uterine Contraction Intensity, Ext Palp : Not palpable Uterine Contraction Rest Tone, Ext Palp : [...] : Absent FHR Provider Present : Yes DYAN MAZARIEGOS RN - 11/04/2014 13:30 CDT Source: [employer] Document Id: [id number] CDT!16 Dyan Zafar R.N. - 11/04/2014 12:30 PM CDT Heart Monitoring Heart Monitoring Entered On: 11/04/2014 13:30 CDT Performed On: 11/04/2014 12:30 CDT by DYAN MAZARIEGOS RN FHR, Prabhakar/Baby A Uterine Contraction Monitoring Method : External toco Uterine Contraction Intensity, Ext Palp : Not palpable Uterine Contraction Rest Tone, Ext Palp : [...] : Absent FHR Provider Present : Yes DYAN MAZARIEGOS RN - 11/04/2014 13:29 CDT Source: [facility] POWERCHART Document Id: [id number] CDT!16 documented in this encounter Plan of Treatment Not on filedocumented as of this encounter Procedures Procedure Name Priority Date/Time Associated Diagnosis Comme nts AMNIOTIC FLUID, Routine 11/04/2014 1:25 PM Result s for this PAMG-1 CDT procedure are i n the results section. documented in this encounter Results Amniotic Fluid, PAMG-1 (11/04/2014 1:25 PM CDT) P athologist Signature HXAmnisure Negative Negative POWERCHART Comment: A positive result indicates the presence of amniotic fluid in vaginal secretions. A negative result indicates the absence of amniotic fluid. Specimen (Source) Anatomical Collection Method Collection Time Re ceived Time Location / / Volume Laterality Fluid 11/04/2014 1:25 PM CDT Kristi Peter M.D. LAB BODY FLUIDS AND STOOLS O RDERABLES Performing Organization Address City/State/ZIP Code Phon e Number POWERCHART documented in this encounter Visit Diagnoses Not on filedocumented in this encounter Care Teams Bus Greaser Relationship Specialty Start Date End Date Gabrielle Jara M.D. PCP - General Family Medicine 10/04/[address] [place] [address] documented as of this encounter
--- OUTSIDE RECORDS SUMMARY | 2021-11-21 03:04 | XMS_ITS | Encounter Summary ---
:1990 Author Organization [facility] Address [address] [place] [address] Care Team Providers Name Role Phone Gabrielle Jara M.D. Primary Care Provider Encounter Details Date Type Department Care Team Description 11/07/2017 Orders Only Department of Obstetrics Kristine Gonzalez A PRN, and Gynecology in [facility] [address] [facility] [address] [place] [address] [place] [address] [phone] Social History Tobacco Use Types Packs/Day Years Used Date Smoking Tobacco: Some Days Sex Assigned at Date Recorded Not on file documented as of this encounter Plan of Treatment Not on filedocumented as of this encounter Visit Diagnoses Not on filedocumented in this encounter Care Teams Steel Post Installer Relationship Specialty Start Date End Date Gabrielle Jara M.D. PCP - General Family Medicine 10/04/13 [address] [place] [address] documented as of this encounter
--- OUTSIDE RECORDS SUMMARY | 2021-11-21 03:04 | XMS_ITS | Encounter Summary ---
:1990 Author Organization [facility] Address [address] [place] [address] Care Team Providers Name Role Phone Gabrielle Jara M.D. Primary Care Provider Encounter Details Date Type Department Care Team Description 05/26/2015 Hospital Encounter [facility]X [facility] Arnol Multani M.D. [address] [place], [place] [phone] (Wo rk) Social History Tobacco Use Types Packs/Day Years Used Date Smoking Tobacco: Never Assessed Sex Assigned at Date Recorded Not on file documented as of this encounter Last Filed Vital Signs Vital Sign Reading Time Taken Comments Blood Pressure 130/74 05/26/2015 9:49 AM [employer] Pulse 87 05/26/2015 9:49 AM [employer] Temperature - - Respiratory Rate 16 05/26/2015 9:49 AM [employer] Oxygen Saturation - - Inhaled Oxygen Concentration - - Weight 97.1 kg (214 lb 1.1 oz) 05/26/2015 9:49 AM [employer] Height 179 cm (5' 10.47) 05/26/2015 9:49 AM [employer] Body Mass Index 30.31 05/26/2015 9:49 AM [employer] documented in this encounter Progress Notes Robert Multani M.D. - 05/26/2015 1:06 PM CST Clinic Full Note CHIEF COMPLAINT/REASON FOR VISIT vaginal bleeding, on and off, with odor HISTORY OF PRESENT ILLNESS 25 year old woman s/p on December 11. Implanon insertion five weeks later. two concerns today: 1. persistent vaginal bleeding without cramping. when she bleeds more she notices more of a foul odor. She did not have persistent bleeding after her previous implanon, and had BV throughout the recent . No clots, and sometimes is darker or thicker than others. No diagnosis of retained placental or cervical laceration. 2. Headache. Started abruptly during delivery immediately after a Epidural (her third during that labor) was placed. The headache is bilateral symmetric frontal, and occasionally bilateral parietal. Lasts hours or until she sleeps it off. Associated with loud noise (which brings it on and makes it worse). Also has nausea at times with the headache. Ibuprofen lessens the headache pain. Pain is sharp,constant, (sometimes throbbing) and its intensity is often 8 or 9 out of ten. No associated vision changes or prodromal symptoms. Is not relieved or exacerbated with position changes. Definitely affects her ability to concentrate. MEDICATIONS etonogestrel, Implant, Once ALLERGIES No Known Medication Allergies PAST MEDICAL HISTORY Chronic Acne vulgaris Headache Leak Amniotic Fluid Left kidney infection Pain Back From Preg Tobacco use Historical Decreased Fetus Movement Affecting Preg Management Oligohydramnios Antepartum PROCEDURES/SURGICAL HISTORY Mantoux test (05/16/2011), Myringotomy (2007), Tonsillectomy (1997), [facility] [place] - as a child (). SOCIAL HISTORY Date Time: 05/26/2015 09:49 Tobacco: Smoking Status: No Results Found Exposure: No Results Found Alcohol: Use: No Results Found Recreational Drugs: Use: None Type: No Results Found FAMILY HISTORY Father: Negative: Sister: Negative: Brother: Negative: Grandfather:Positive: CA - Renal cancer Uncle:Positive: Kidney stone Grandfather:Positive: [place] - Cancer of prostate SYSTEMS REVIEW GENERAL: No weight gain, no weight loss, no fever in past month, no chills, no sweats EENT: No blurred vision, no double vision, no eye pain, no sinus problems, no hoarseness, no difficulty swallowing, PULMONARY: No shortness of breath, no cough, no wheezing, no sputum, no hemoptysis CARDIAC: No valve problems, no Chest pain, no Chest pressure, no rapid beating, no irregular beating, no dependent edema, pain in calves or with walking, no difficulty moving arms and legs GI: No heartburn, no vomiting, no stomach trouble, no constipation, no diarrhea, no blood in BMs, no change in BMs BREAST: breast-feeding, : , no burning/pain with urination, no difficulty starting stream, no difficulty emptying bladder, no excessive urination NEURO: , no slurred speech, no seizures, no dizziness, no loss of consciousness, no memory loss VITAL SIGNS T: 36.7 ??C (Core) HR: 87 RR: 16 BP: 130 / 74 SpO2: 97% HT: 179 cm WT: 97.1 kg BMI: 30.3 PHYSICAL EXAMINATION GEN: in no acute distress. Neurological: Cranial nerves III through XII are grossly intact. Strength testing: Bilaterally symmetric and Normal for elbow flexion/extension shoulder abduction, hip flexion, abduction and abduction, knee extension. Reflexes 2+ bilateral patellar and Achilles. Gait normal, Romberg negative. Alert and oriented times 3. MUSCULOSKELETAL: Neck range of motion is normal and nontender to palpation of the cranium. Genital: Normal female genitalia, some maroon blood in the vaginal vault, normal vaginal secretionswithout discharge. the uterus is small (less than 10 cm) and nontender to palpation, normal adnexal structures palpated on the right, overnight palpation of the left. Wet prep obtained. LAB RESULTS wet prep positive for G.vaginalis DNA IMPRESSION/REPORT/PLAN 1. Bleeding Vaginal It is my impression that her vaginal bleeding is related to her implanted progesterone control device. The likelihood of retained placenta in the absence of uterine cramping, enlargement, or infectious symptoms is very small. It might be reasonable if the symptoms persists to use a short courseof oral progestin to try to stabilize the. Uterine lining. Ordered: OV Est Pt Level 4 - 92595 - 25 min 2. Vaginosis Bacterial Ordered: metroNIDAZOLE topical, 1 carine, Vaginal, Bedtime, x 5 day(s), # 70 gm, 1 Refill(s), Acute, Pharmacy: [facility] OV Est Pt Level 4 - 44489 - 25 min 3. Headache (GONZALEZ) Chronic 6 months and , and in the presence of normal blood pressure, I believe that this is not related. Her story for having a headache following epidural administration is quite unusual.However a spinal headache is in the differential diagnosis. She has a few symptoms consistent with vascular or migraine headache. She is willing to try Imitrex once (were mg, oral.), and knows that sheneeds to avoid breast-feeding and then pump and dump her milk 6 hours after taking the medication. Follow up with me in 1 to 2 weeks. Ordered: SUMAtriptan, 100 mg = 1 tab(s), PO, As Directed, PRN Migraine headache, 1 tab at onset of headache.No nursing for 6 hrs after use; pump before nursing again., # 1 tab(s), 0 Refill(s), Acute, Pharmacy: [facility] OV Est Pt Level 4 - 60277 - 25 min Electronically Signed By: ROBERT MULTANI MD On: 05/26/2015 01:22 PM Source: [facility] POWERCHART Document Id: [id number] [employer] documented in this encounter Nursing Notes Robert Multani M.D. - 05/26/2015 1:10 PM CST Ambulatory Patient Education The following Patient Education Materials have been given to the patient: Patient Education Materials: Ambulatory HEADACHE, Unspecified Otr Flatbed Driver Vaginal Infection: Bacterial Vaginosis Ambulatory Headache [Unspecified] The cause of your headache today is not clear, but it does not appear to be the sign of any serious illness. Under stress, some people tense the muscles of their shoulder, neck and scalp without knowing it. Ifthis condition lasts long enough, a TENSION HEADACHE can occur. A MIGRAINE HEADACHE is caused by changes in blood flow to the brain. A migraine attack may be triggered by emotional stress, hormone changes during the menstrual cycle, oral contraceptives, alcohol use, certain foods containing tyramine, eye strain, weather changes, missing meals, lack of sleep or over sleeping. Other causes of headache include a viral illness with high fever, head injury with concussion, sinus, ear or throat infection, dental pain and TMJ (jaw joint) pain. More serious but less common causes of headache include stroke, brain hemorrhage, brain tumor, meningitis and encephalitis. Home Care: ?? Apply heat to the back of your neck to relieve neck muscle spasm. Migraine headaches may respond best to an ice pack on the forehead or at the base of the skull. ?? If you are having nausea or vomiting, follow a light diet until your headache is relieved. ?? If you have a migraine type headache, use sunglasses when in the daylight or around bright indoorlighting until symptoms improve. Bright glaring light can worsen this kind of headache. Follow Up with your doctor in one to two weeks. By being aware of the earliest signs of headache, and startingtreatment right away, you may be able to stop the pain yourself. Get Prompt Medical Attention if any of the following occur: ?? Worsening of your head pain or no improvement within 24 hours ?? Repeated vomiting (unable to keep liquids down) ?? Fever of 100.4??F (38??C) or higher, or as directed by your healthcare provider ?? Stiff neck ?? Extreme drowsiness, confusion or fainting ?? Dizziness, vertigo (dizziness with spinning sensation) ?? Weakness of an arm or leg or one side of the face ?? Difficulty with speech or vision ?? [phone] [place] [address]. All rights reserved. This information is not intended as a substitute for professional medical care. Always follow your healthcare professional's instructions. Otr Flatbed Driver Vaginal Infection: Bacterial Vaginosis Both good and bad bacteria are present in a healthy vagina. Bacterial vaginosis (BV) occurs when these bacteria get out of balance. The numbers of good bacteria decrease. This allows the numbers of badbacteria to increase and cause BV. In most cases, BV is not a serious problem. This sheet tells you more about BV and how it can be treated. Causes of Bacterial Vaginosis The cause of BV is not clear. Douching may lead to it. Having sex with a new partner or more than 1 partner makes it more likely. Symptoms of Bacterial Vaginosis Symptoms of BV vary for each woman. Some women have few symptoms or none at all. If symptoms are present, they can include: ?? Thin, milky white or gay discharge ?? Unpleasant fishy odor ?? Irritation, itching, and burning at opening of vagina. These symptoms may indicate mixed vaginitis with 2 types of organisms. ?? Burning or irritation with sex or urination Diagnosing Bacterial Vaginosis Your health care provider will ask about your symptoms and health history. He or she will also perform a pelvic exam. This is an exam of your vagina and cervix. A sample of vaginal fluid or discharge may be taken. This sample is checked for signs of BV. Treating Bacterial Vaginosis BV is often treated with antibiotics. They may be given in oral pill form or as a vaginal cream. To use these medications: ?? Be sure to take all of your medication, even if your symptoms go away. ?? If youre taking antibiotic pills, do not drink alcohol until youre finished with all of your medication. ?? If youre using vaginal cream, apply it as directed. Be aware that the cream may make condoms and diaphragms less effective. ?? Call your health care provider if symptoms do not go away within 4 days of starting treatment. Also call if you have a reaction to the medication. Why Treatment Matters Even if you have no symptoms or your symptoms are mild, BV should be treated. Untreated BV can lead to health problems such as: Increased risk of delivery if youre . Increased risk of complications after surgery on the reproductive organs. Possible increased risk of pelvic inflammatory disease (PID). ?? [id number] [place] [address]. All rights reserved. This information is not intended as a substitute for professional medical care. Always follow your healthcare professional's instructions. This document has images extracted. Please consider using [employer] for all your patient education needs. Source: [facility] POWERCHART Document Id: [id number] [employer] Robert Multani M.D. - 05/26/2015 1:10 PM CST Ambulatory Patient Education The following Patient Education Materials have been given to the patient: Patient Education Materials: Ambulatory HEADACHE, Unspecified Otr Flatbed Driver Vaginal Infection: Bacterial Vaginosis Ambulatory Headache [Unspecified] The cause of your headache today is not clear, but it does not appear to be the sign of any serious illness. Under stress, some people tense the muscles of their shoulder, neck and scalp without knowing it. Ifthis condition lasts long enough, a TENSION HEADACHE can occur. A MIGRAINE HEADACHE is caused by changes in blood flow to the brain. A migraine attack may be triggered by emotional stress, hormone changes during the menstrual cycle, oral contraceptives, alcohol use, certain foods containing tyramine, eye strain, weather changes, missing meals, lack of sleep or over sleeping. Other causes of headache include a viral illness with high fever, head injury with concussion, sinus, ear or throat infection, dental pain and TMJ (jaw joint) pain. More serious but less common causes of headache include stroke, brain hemorrhage, brain tumor, meningitis and encephalitis. Home Care: ?? Apply heat to the back of your neck to relieve neck muscle spasm. Migraine headaches may respond best to an ice pack on the forehead or at the base of the skull. ?? If you are having nausea or vomiting, follow a light diet until your headache is relieved. ?? If you have a migraine type headache, use sunglasses when in the daylight or around bright indoorlighting until symptoms improve. Bright glaring light can worsen this kind of headache. Follow Up with your doctor in one to two weeks. By being aware of the earliest signs of headache, and startingtreatment right away, you may be able to stop the pain yourself. Get Prompt Medical Attention if any of the following occur: ?? Worsening of your head pain or no improvement within 24 hours ?? Repeated vomiting (unable to keep liquids down) ?? Fever of 100.4??F (38??C) or higher, or as directed by your healthcare provider ?? Stiff neck ?? Extreme drowsiness, confusion or fainting ?? Dizziness, vertigo (dizziness with spinning sensation) ?? Weakness of an arm or leg or one side of the face ?? Difficulty with speech or vision ?? [phone] [facility], [address] [place] [address], [place] [address]. All rights reserved. This information is not intended as a substitute for professional medical care. Always follow your healthcare professional's instructions. Otr Flatbed Driver Vaginal Infection: Bacterial Vaginosis Both good and bad bacteria are present in a healthy vagina. Bacterial vaginosis (BV) occurs when these bacteria get out of balance. The numbers of good bacteria decrease. This allows the numbers of badbacteria to increase and cause BV. In most cases, BV is not a serious problem. This sheet tells you more about BV and how it can be treated. Causes of Bacterial Vaginosis The cause of BV is not clear. Douching may lead to it. Having sex with a new partner or more than 1 partner makes it more likely. Symptoms of Bacterial Vaginosis Symptoms of BV vary for each woman. Some women have few symptoms or none at all. If symptoms are present, they can include: ?? Thin, milky white or gay discharge ?? Unpleasant fishy odor ?? Irritation, itching, and burning at opening of vagina. These symptoms may indicate mixed vaginitis with 2 types of organisms. ?? Burning or irritation with sex or urination Diagnosing Bacterial Vaginosis Your health care provider will ask about your symptoms and health history. He or she will also perform a pelvic exam. This is an exam of your vagina and cervix. A sample of vaginal fluid or discharge may be taken. This sample is checked for signs of BV. Treating Bacterial Vaginosis BV is often treated with antibiotics. They may be given in oral pill form or as a vaginal cream. To use these medications: ?? Be sure to take all of your medication, even if your symptoms go away. ?? If youre taking antibiotic pills, do not drink alcohol until youre finished with all of your medication. ?? If youre using vaginal cream, apply it as directed. Be aware that the cream may make condoms and diaphragms less effective. ?? Call your health care provider if symptoms do not go away within 4 days of starting treatment. Also call if you have a reaction to the medication. Why Treatment Matters Even if you have no symptoms or your symptoms are mild, BV should be treated. Untreated BV can lead to health problems such as: Increased risk of delivery if youre . Increased risk of complications after surgery on the reproductive organs. Possible increased risk of pelvic inflammatory disease (PID). ?? [phone] [facility], [address] [place] [address]. All rights reserved. This information is not intended as a substitute for professional medical care. Always follow your healthcare professional's instructions. This document has images extracted. Please consider using [employer] for all your patient education needs. Source: [facility] POWERCHART Document Id: [id number] [employer] documented in this encounter Miscellaneous Notes Miscellaneous - Robert Multani M.D. - 05/26/2015 1:10 PM CST Ambulatory Patient Summary [address] [facility] Nirav [place] [phone] Visit Information Name: CHERRY HALL [facility] Number: [id number] Current Date: 05/26/2015 13:10:44 Physicians Attending Provider: ROBERT MULTANI MD Primary Care Provider: PCP, BAKARI CHERRY HALL has been given the following list of follow-up instructions, medication list,and patient education materials: Follow-up Instructions With: Address: When: Follow up with primary care provider In 14 days 06/09/2015 Your Medications Here is a list of your medications. It is important to take your medications as directed. Use a pillbox or chart to help remind you to take your medications. Please let your doctor or nurse know if you have problems taking your medications. Medication/Strength How to Take Indications/Special Instructions/Comments/Notes for Patient Medication Changes/Routing etonogestrel (etonogestrel) Implant, once metroNIDAZOLE topical (MetroGel-Vaginal 0.75% vaginal gel with applicator) 1 craine, Vaginal, once a day (at bedtime) x 5 day(s) New Routed to [address] [id number] SUMAtriptan (Imitrex 100 mg oral tablet) 1 Tablet(s), Oral, as directed as needed for Migraine headache 1 tab at onset of headache. No nursing for 6 hrs after use; pump before nursing again. [facility] [id number] Stop Taking the Following Medications: Medication list as of 05-26-15 13:10 Attention: If you have any medications at home that are not on this list, DO NOT take them until youcontact your provider for clarification. Give a copy of your medication list to your primary care provider. Update your medication list any time medications or doses are changed and carry your medication list at all times in case of emergency. Electronically Signed By: ROBERT MULTANI MD Signed On:12-FEB-2016 13:07:08 Your Allergies & Intolerances Substance Reaction Symptoms [...] local Clinic if further appointment detail needed. Vaginal Infection: Bacterial Vaginosis Both good and bad bacteria are present in a healthy vagina. Bacterial vaginosis (BV) occurs when these bacteria get out of balance. The numbers of good bacteria decrease. This allows the numbers of badbacteria to increase and cause BV. In most cases, BV is not a serious problem. This sheet tells you more about BV and how it can be treated. Causes of Bacterial Vaginosis The cause of BV is not clear. Douching may lead to it. Having sex with a new partner or more than 1 partner makes it more likely. Symptoms of Bacterial Vaginosis Symptoms of BV vary for each woman. Some women have few symptoms or none at all. If symptoms are present, they can include: ?? Thin, milky white or gay discharge ?? Unpleasant fishy odor ?? Irritation, itching, and burning at opening of vagina. These symptoms may indicate mixed vaginitis with 2 types of organisms. ?? Burning or irritation with sex or urination Diagnosing Bacterial Vaginosis Your health care provider will ask about your symptoms and health history. He or she will also perform a pelvic exam. This is an exam of your vagina and cervix. A sample of vaginal fluid or discharge may be taken. This sample is checked for signs of BV. Treating Bacterial Vaginosis BV is often treated with antibiotics. They may be given in oral pill form or as a vaginal cream. To use these medications: ?? Be sure to take all of your medication, even if your symptoms go away. ?? If youre taking antibiotic pills, do not drink alcohol until youre finished with all of your medication. ?? If youre using vaginal cream, apply it as directed. Be aware that the cream may make condoms and diaphragms less effective. ?? Call your health care provider if symptoms do not go away within 4 days of starting treatment. Also call if you have a reaction to the medication. Why Treatment Matters Even if you have no symptoms or your symptoms are mild, BV should be treated. Untreated BV can lead to health problems such as: Increased risk of delivery if youre . Increased risk of complications after surgery on the reproductive organs. Possible increased risk of pelvic inflammatory disease (PID). ?? [phone] [facility], [address] [place] [address], [place] [address]. All rights reserved. This information is not intended as a substitute for professional medical care. Always follow your healthcare professional's instructions. Headache [Unspecified] The cause of your headache today is not clear, but it does not appear to be the sign of any serious illness. Under stress, some people tense the muscles of their shoulder, neck and scalp without knowing it. Ifthis condition lasts long enough, a TENSION HEADACHE can occur. A MIGRAINE HEADACHE is caused by changes in blood flow to the brain. A migraine attack may be triggered by emotional stress, hormone changes during the menstrual cycle, oral contraceptives, alcohol use, certain foods containing tyramine, eye strain, weather changes, missing meals, lack of sleep or over sleeping. Other causes of headache include a viral illness with high fever, head injury with concussion, sinus, ear or throat infection, dental pain and TMJ (jaw joint) pain. More serious but less common causes of headache include stroke, brain hemorrhage, brain tumor, meningitis and encephalitis. Home Care: ?? Apply heat to the back of your neck to relieve neck muscle spasm. Migraine headaches may respond best to an ice pack on the forehead or at the base of the skull. ?? If you are having nausea or vomiting, follow a light diet until your headache is relieved. ?? If you have a migraine type headache, use sunglasses when in the daylight or around bright indoorlighting until symptoms improve. Bright glaring light can worsen this kind of headache. Follow Up with your doctor in one to two weeks. By being aware of the earliest signs of headache, and startingtreatment right away, you may be able to stop the pain yourself. Get Prompt Medical Attention if any of the following occur: ?? Worsening of your head pain or no improvement within 24 hours ?? Repeated vomiting (unable to keep liquids down) ?? Fever of 100.4??F (38??C) or higher, or as directed by your healthcare provider ?? Stiff neck ?? Extreme drowsiness, confusion or fainting ?? Dizziness, vertigo (dizziness with spinning sensation) ?? Weakness of an arm or leg or one side of the face ?? Difficulty with speech or vision ?? [phone] [facility], [address] [place] [address]. All rights reserved. This information is not [...] if you dont have one. Go to [email or web address] and click on Create Your Account. Then, follow the directions to complete the online form. Youll be asked for your [facility] number which you can find at the top of this document. Your Goals/Additional instructions: This document has images extracted. Please consider using [employer] for all your patient education needs. Source: [facility] POWERCHART Document Id: [id number] [employer] Miscellaneous - Robert Multani M.D. - 05/26/2015 1:10 PM CST Ambulatory Discharge Medication List [address] [id number] Visit Information Name: CHERRY HALL [facility] Number: [id number] Visit Date: 05/26/2015 13:10:43 Attending Provider: ROBERT MULTANI MD Primary Care Provider: PCP, CHERRY EDMOND [...] Patient Medication Changes/Routing etonogestrel (etonogestrel) Implant, once metroNIDAZOLE topical (MetroGel-Vaginal 0.75% vaginal gel with applicator) 1 carine, Vaginal, once a day (at bedtime) x 5 day(s) New Routed to [facility] [address] [address] SUMAtriptan (Imitrex 100 mg oral tablet) 1 Tablet(s), Oral, as directed as needed for Migraine headache 1 tab at onset of headache. No nursing for 6 hrs after use; pump before nursing again. [facility] [address] [address] Stop Taking the Following Medications: Medication list as of 05-26-15 13:10 Attention: If you have any medications at home that are not on this list, DO NOT take them until youcontact your provider for clarification. Give a copy of your medication list to your primary care provider. Update your medication list any time medications or doses are changed and carry your medication list at all times in case of emergency. Electronically Signed By: ROBERT MULTANI MD Signed On:26-MAY-2015 13:07:08 Additional Information: Source: [facility] POWERCHART Document Id: [id number] [employer] Miscellaneous - Robert Multani M.D. - 05/26/2015 11:32 AM CST Work Excuse 26 May 2015 CHERRY HALL [address] [facility] [phone] Dear CHERRY HALL, You were examined in my office on: MAY 30, 2015 Reason for work excuse: Medical Illness ( X ) Yes ( _ ) No Injury ( _ ) Yes ( X ) No Is excused from all work: ( _ ) Yes ( xx ) No Has work limitations: ( xx ) Yes ( _ ) No As follows: _when headache is severe, need to miss work. Limitations apply until: _ Follow-Up Appointment : ( 1 week ) Return to Work date: _ Notes: _ Sincerely, ROBERT MULTANI [address] [place] [address] Electronic Signature Electronically Signed By: ROBERT MULTANI MD On: 26 May 2015 This document has images extracted. Source: [facility] POWERCHART Document Id: [id number] Electronically signed by Conversion, [facility] Database Operator [id number] at 09/07/2016 9:51 AM CDT Miscellaneous - Michelle Garcia LPedroPPedroN. - 05/26/2015 9:49 AM CST Adult Digital Media Director Intake/History Adult Digital Media Director Intake/History Entered On: 05/26/2015 9:53 [employer] Performed On: 05/26/2015 9:49 [employer] by MICHELLE GARCIA LPN Intake Chief Complaint : vaginal bleeding, on and off, with odor Onset of Symptoms : since giving in november 2014 Temperature Core : 36.7 DegC(Converted to: 98.1 DegF) Peripheral Pulse Rate : 87 /min Respiratory Rate : 16 /min Systolic Blood Pressure : 130 mmHg Diastolic Blood Pressure : 74 mmHg NIBP Mean : 93 mmHg BP Location : Left upper extremity Blood Pressure Cuff Size : Large SpO2 : 97 % Oxygen Therapy : Room air Height : 179 cm(Converted to: 5 ft 10 inch(es), 70 inch(es)) Actual Weight : 97.1 kg(Converted to: 214 lb 1 oz) Weight Source : Standing scale Dosing Weight Clinic : 97.1 kg Clinic BSA : 2.2 Body Mass Index : 30.3 kg/m2 MICHELLE GARCIA LPN - 05/26/2015 9:49 [employer] General Info Information Given By : Patient Languages : [place]er Is Patient Female and 13-50 no hysterectomy : No MICHELLE GARCIA LPN - 05/26/2015 9:49 [employer] Subjective Pain Symptoms : No MICHELLE GARCIA LPN - 05/26/2015 9:49 [employer] Dependent Habits Exposure to Tobacco Smoke : Other: Former smoker: quit 03/2014 Smoking Status : Former smoker Tobacco 2A : Yes Tobacco Use/Currently Using : No Tobacco Use/Last 30 Days : No Tobacco Use/Last 12 months : No MICHELLE GARCIA LPN - 05/26/2015 9:49 [employer] Caffeine Use Grid Caffeine Use : None Type : Coffee Frequency : Daily Amount : 1 MICHELLE GARCIA LPN - 05/26/2015 9:49 [employer] Recreational Drug Use Grid Drug Use : None MICHELLE GARCIA CLEANING MATRON - 05/26/2015 9:49 [employer] Source: [facility] POWERCHART Document Id: [id number] [employer]!42 [employer] documented in this encounter Plan of Treatment Not on filedocumented as of this encounter Procedures Procedure Name Priority Date/Time Associated Diagnosis Comme nts VAGINITIS BATTERY, Routine 05/26/2015 10:58 AM Re sults for this DNA (GENITAL) [employer] procedure are in the results section. documented in this encounter Results (ABNORMAL) VAGINITIS BATTERY, DNA (GENITAL) (05/26/2015 10:58 AM [employer]) Component Value Ref Test Analysis Performed At [facility] Range Method Time Signature HXVaginitis (POSITIVE) POWERCHART Battery, DNA (Genital) HXFinal Trichomonas POWERCHART vaginalis DNA negative HXFinal Gardnerella POWERCHART vaginalis DNA positive HXFinal Katie species POWERCHART DNA negative HXFinal Reference: POWERCHART Negative Specimen (Source) Anatomical Collection Method Collection Time Re ceived Time Location / / Volume Laterality Vagina 05/26/2015 10:58 AM [employer] Robert Multani M.D. LAB HISTORICAL ORDERS Performing Organization Address City/State/ZIP Code Phon e Number POWERCHART documented in this encounter Visit Diagnoses Not on filedocumented in this encounter Care Teams Summer Law Clerk Relationship Specialty Start Date End Date Gabrielle Jara M.D. PCP - General Family Medicine 10/04/[address] [place] [address] documented as of this encounter
--- OUTSIDE RECORDS SUMMARY | 2021-11-21 03:05 | XMS_ITS | Encounter Summary ---
:1990 Author Organization [facility] Address [address] [place] [address] Care Team Providers Name Role Phone Gabrielle Jara M.D. Primary Care Provider Encounter Details Date Type Department Care Team Description 07/21/2014 Hospital Encounter HX [facility] OBKristine Savage, Anatoliy AVINA, JL- [address] [place], [place] [address] (Wo rk) Social History Tobacco Use Types Packs/Day Years Used Date Smoking Tobacco: Never Assessed Sex Assigned at Date Recorded Not on file documented as of this encounter Last Filed Vital Signs Vital Sign Reading Time Taken Comments Blood Pressure 120/58 07/21/2014 4:00 PM CDT Pulse - - Temperature - - Respiratory Rate - - Oxygen Saturation - - Inhaled Oxygen Concentration - - Weight 106 kg (232 lb 12.9 oz) 07/21/2014 3:42 PM CDT Height 179 cm (5' 10.47) 07/21/2014 3:42 PM CDT Body Mass Index 32.96 07/21/2014 3:42 PM CDT documented in this encounter Miscellaneous Notes Miscellaneous - Kristine Rain, R.N. - 07/21/2014 4:57 PM CDT Ambulatory Patient Summary [facility] [address] [place], [address] [place], [place] [id number] Visit Information Name: CHERRY CHEN [facility] Number: [id number] Current Date: 07/21/2014 16:57:07 Physicians Attending Provider: KRISTINE RAIN VIRTUAL CLASSROOM MANAGER Primary Care Provider: PCP, CHERRY CLINTON has been given the following list of [...] Take Indications/Special Instructions/Comments/Notes for Patient Medication Changes/Routing multivitamin, ( Multivitamins oral tablet) 1 Tablet(s), Oral, once a day ondansetron (Zofran 4 mg oral tablet) 1 Tablet(s), Oral, every 8 hours as needed for Nausea Stop Taking the Following Medications: Medication list as of 07-21-14 16:57 Attention: If you have any medications at [...] of emergency. Electronically Signed By: KRISTINE RAIN VIRTUAL CLASSROOM MANAGER Signed On:21-JUL-2014 16:57:02 Your Allergies & Intolerances Substance Reaction Symptoms Category Comments No Known Medication Allergies Drug NO KNOWN DRUG ALLERGIES Your Problem List Problem Status Onset Comments Left kidney infection Active 04/14/2003 10/24/10 function 12% date unknown Acne vulgaris Active 02/13/2011 Headache Active 2010 Tobacco use Active 2002 09/03/11 unknown date of dx Active 03/03/2014 Your Upcoming Appointments Date Time Location Provider No Appointments found Attention: Contact your local Clinic if further appointment detail needed. Your Goals/Additional instructions: Source: [facility] POWERCHART Document Id: [id number] Miscellaneous - Kristine Rain, R.N. - 07/21/2014 4:57 PM CDT Ambulatory Discharge Medication List [place] [facility] [address] [place], [place] [phone] Visit Information Name: CHERRY CHEN [facility] Number: [id number] Visit Date: 07/21/2014 16:57:05 Attending Provider: KRISTINE RAIN VIRTUAL CLASSROOM MANAGER Primary Care Provider: PCP, BAKARI CHERRY CHEN has been given the following list of medications: Your Medications It is important to take your medications as directed. Use a pill box or chart to help remind you to take your medications. Please let your doctor or nurse know if you have problems taking your medications. Medication/Strength How to Take Indications/Special Instructions/Comments/Notes for Patient Medication Changes/Routing multivitamin, ( Multivitamins oral tablet) 1 Tablet(s), Oral, once a day ondansetron (Zofran 4 mg oral tablet) 1 Tablet(s), Oral, every 8 hours as needed for Nausea Stop Taking the Following Medications: Medication list as of 07-21-14 16:57 Attention: If you have any medications at [...] of emergency. Electronically Signed By: KRISTINE RAIN VIRTUAL CLASSROOM MANAGER Signed On:21-JUL-2014 16:57:02 Additional Information: Source: [facility] POWERCHART Document Id: [id number] Miscellaneous - Iliana Pool, L.P.N. - 07/21/2014 3:42 PM CDT Adult Digital Communications Manager Intake/History Adult Digital Communications Manager Intake/History Entered On: 07/21/2014 15:45 CDT Performed On: 07/21/2014 15:42 CDT by ILIANA POOL LPN Intake Chief Complaint : 20 week checkup LMP Date : 03/03/2014 Systolic Blood Pressure : 142 mmHg (HI) Diastolic Blood Pressure : 76 mmHg NIBP Mean : 98 mmHg BP Location : Left upper extremity Blood Pressure Cuff Size : Regular Height : 179 cm(Converted to: 5 ft 10 inch(es), 70 inch(es)) Actual Weight : 105.6 kg(Converted to: 232 lb 13 oz) Dosing Weight Clinic : 105.6 kg Clinic BSA : 2.29 Body Mass Index : 32.96 kg/m2 ILIANA POOL [facility] - 07/21/2014 15:42 CDT General Info Information Given By : Patient Languages : Maori Is Patient Female and 13-50 no hysterectomy : No ILIANA POOL [facility] - 07/21/2014 15:42 CDT Subjective Pain Symptoms : No ILIANA POOL [facility] - 07/21/2014 15:42 CDT Dependent Habits Tobacco Use/Currently Using : No Exposure to Tobacco Smoke : Other: Former smoker: quit 03/2014 Smoking Status : Former smoker ILIANA POOL [facility] - 07/21/2014 15:42 CDT Tobacco Use Grid Type : Cigarettes Last Use : 03/2014 ILIANA POOL [facility] 07/21/2014 15:42 CDT Caffeine Use Grid Caffeine Use : None ILIANA POOL [facility] 07/21/2014 15:42 CDT Recreational Drug Use Grid Drug Use : None ILIANA POOL [facility] 07/21/2014 15:42 CDT ID Screen Drug Resistant Organism : No Travel Within Last 21 Days : No Contact with someone with Ebola : No ILIANA POOL [facility] 07/21/2014 15:42 CDT Source: [facility] Document Id: [id number] CDT!38 documented in this encounter Plan of Treatment Not on filedocumented as of this encounter Visit Diagnoses Not on filedocumented in this encounter Care Teams Forepart Laster Relationship Specialty Start Date End Date Gabrielle Jara M.D. PCP - General Family Medicine 10/04/13 [address] [place] [address] documented as of this encounter
--- OUTSIDE RECORDS SUMMARY | 2021-11-21 03:05 | XMS_ITS | Encounter Summary ---
:[address] [facility] Address [address] [place] [address] Care Team Providers Name Role Phone Gabrielle Jara M.D. Primary Care Provider Encounter Details Date Type Department Care Team Description 05/03/2014 Hospital Encounter HX [facility] OBGYN Cecil Gonzalez, Anatoliy AVINA, [facility]- [address] [place] [address] [phone] (Wo rk) Social History Tobacco Use Types Packs/Day Years Used Date Smoking Tobacco: Never Assessed Sex Assigned at Date Recorded Not on file documented as of this encounter Last Filed Vital Signs Vital Sign Reading Time Taken Comments Blood Pressure 108/62 05/03/2014 3:53 PM SENIOR TECHNICAL ANALYST Pulse - - Temperature - - Respiratory Rate - - Oxygen Saturation - - Inhaled Oxygen Concentration - - Weight 101 kg (222 lb 3.6 oz) 05/03/2014 3:53 PM SENIOR TECHNICAL ANALYST Height 179 cm (5' 10.47) 05/03/2014 3:53 PM SENIOR TECHNICAL ANALYST Body Mass Index 31.46 05/03/2014 3:53 PM SENIOR TECHNICAL ANALYST documented in this encounter Progress Notes Cecil Gonzalez, R.N. - 05/03/2014 4:02 PM CST new ob visit Infectious Diseases: Denies any history of sexually transmitted infections. Pap smears have been normal. Sexual History with linden Arellano for 4 years S: This patient is a 23 y/o, G 3, P 1. LMP of 03/03/2014. She is 8w5d today based on LMP, confirmed by early dating sono. She lives in [place] with fierika and daughter. This patient has been feeling ok. She works at [employer]lebot[employer]. Family is close by and supportive. [facility]. Assessment: vitamins: Is taking them. Diet: Regular diet, no history of an eating disorder. Adequate calcium intake discussed. She has notbeen referred to meet with the collar setter. Transportation issues: none Safe relationship: she feels safe in current relationship. She has no history of abusive relationships. Financial Concerns: none Insurance: [employer]/Public Health: none She is a former smoker, quit with . She is planning to breastfeed her baby, breastfed daugther. Discussed wt. gain and exercise, caffeine, cat litter, choosing a baby doctor, toxic substances. O: BLOOD PRESSURE Systolic Blood Pressure: 108 mmHg Diastolic Blood Pressure: 62 mmHg MEASUREMENTS Height: 179 cm Actual Weight: 100.8 kg Body Mass Index: 31.46 kg/m2 A: 1. Appropriate and health seeking behaviors toward her 2. Verbalizes understanding of care schedule, and the importance of coming to each visit as scheduled. 3. Supportive relationship with her fiance and family Plan:1. Discussed materials in the new OB folder, proper diet, exercise and enc. her to abstain fromalcohol. We also discussed childbirth ed. classes, she was given dates today. 2. Her next appointment will be in 4 weeks with OB provider. She was enc. to call with any questions. 3. new ob labs, UA/UC, wet prep, hgb A1C Referrals: none Electronically Signed By: CECIL GONZALEZ CUSHION COVER INSPECTOR On: 05/03/2014 04:51 PM Modified by and Electronically Signed by: CECIL GONZALEZ CUSHION COVER INSPECTOR On: 05/03/2014 04:51 PM Source: [facility] POWERCHART Document Id: [id number] OR TECHNICAL ANALYST documented in this encounter Nursing Notes Conversion, Historical Provider Ser - 05/03/2014 3:53 PM CST Antepartum Exam, Initial Document Has Been Updated Antepartum Exam, Initial Entered On: 05/03/2014 15:56 SENIOR TECHNICAL ANALYST Performed On: 05/03/2014 15:53 SENIOR TECHNICAL ANALYST by MISTY ABEBE LPN Vitals/Ht/Wt Systolic Blood Pressure : 108 mmHg Diastolic Blood Pressure : 62 mmHg Blood Pressure Cuff Size : Large Blood Pressure Location : Left upper extremity LMP Date : 03/03/2014 Pain Symptoms : No Actual Weight : 100.8 kg(Converted to: 222 lb 4 oz, 222.226 lb) Height : 179 cm(Converted to: 5 ft 10 inch(es), 70 inch(es)) Body Mass Index : 31.46 kg/m2 Pre- Weight : 100.8 kg(Converted to: 222 lb 4 oz, 222 lb) Cumulative Weight Gain : 0 kg MISTY ABEBE ROXANNE - 05/03/2014 15:53 SENIOR TECHNICAL ANALYST Obstetrical History History (As Of: 05/03/2014 16:18:26 SENIOR TECHNICAL ANALYST) - 3, Para Fullterm - 1, Para - , Abortions - , Para Living - 1 Delivery/Outcome Date: 10/10/2009 Gestation Age At : 39 weeks 2 days ; Full Gestation ; Delivery Method: Vaginal ; Gender: Female ; Weight: 8lb 13oz / 3997gm ; Outcome: Live ; Child Name: Alicia Delivery/Outcome Date: 11/27/2010 Delivery Method: Unknown ; Outcome: Add'l Information Planned/Unplanned : Unplanned Wanted : Yes Desires to Continue : Yes On Hormonal Contraception Within 2 Months of LMP : No at Conception : No Resulted from Infertility Tx : No Desires Tubal Sterilization : No CECIL GONZALEZ CUSHION COVER INSPECTOR - 05/03/2014 16:10 SENIOR TECHNICAL ANALYST Problems & Procedures (As Of: 05/03/2014 16:18:27 SENIOR TECHNICAL ANALYST) Problems(Active) Acne vulgaris (ICD-9-CM :706.1 ) Name [...] Medical ; Code: 784.0 ; Contributor System: PowerChart ; Last Updated: 06/11/2011 12:05 SENIOR TECHNICAL ANALYST ; Life Cycle Date: 06/11/2011 ; Life Cycle Status: Active ; Responsible Provider: SOFIE GARCIA NP; Vocabulary: ICD-9-CM Left kidney infection (SNOMED CT :50953136 ) Name of Problem: Left kidney infection ; Onset Date: 2003 ; Recorder: SKIP SCHWARTZ LPN; Confirmation: Confirmed ; Classification: Medical ; Code: 53513469 ; Contributor System: PowerChart ; Last Updated: 01/18/2011 10:10 CDT ; Life Cycle Date: 10/24/2010 ; Life Cycle Status: Active ; Responsible Provider: SKIP SCHWARTZ LPN; Vocabulary: SNOMED CT; Comments: 10/24/2010 15:18 - SKIP SCHWARTZ LPN function 12% date unknown (SNOMED CT :229088776 ) Name of Problem: ; Onset Date: 03/03/2014 ; Recorder: MISTY ABEBE LPN; Confirmation: Confirmed ; Classification: Medical ; Code: 589574347 ; Last Updated: 05/03/2014 15:57 SENIOR TECHNICAL ANALYST ; Life Cycle Status: Active ; Responsible [...] MICHELLE VELASCO LPN unknown date of dx Diagnoses(Active) Patient Currently Date: 04/13/2014 ; Diagnosis Type: Working ; Confirmation: Confirmed ; Clinical Dx: Patient Currently ; Classification: Medical ; Clinical Service: Non-Specified ; Code: ICD-9-CM ; Probability: 0 ; Diagnosis Code: V22.2 Date: 05/03/2014 ; Confirmation: Confirmed ; Clinical Dx: ; Code: SNOMED CT ; Probability: 0 ; Diagnosis Code: [id number] - Procedure History (As Of: 05/03/2014 16:18:27 SENIOR TECHNICAL ANALYST) Procedure Dt/Tm: 2007 ; Anesthesia Minutes: 0 ; Procedure Name: Myringotomy ; Procedure Minutes: 0 ; Comments: 10/24/2010 15:17 - SKIP SCHWARTZ LPN 2007- 2008 ; Last Reviewed Dt/Tm: 2007 00:00:00 SENIOR TECHNICAL ANALYST Procedure Dt/Tm: 1997 ; Anesthesia Minutes: 0 ; Procedure Name: Tonsillectomy ; Procedure Minutes: 0 ; Last Reviewed Dt/Tm: 1997 00:00:00 SENIOR TECHNICAL ANALYST Procedure Dt/Tm: 05/16/2011 ; Anesthesia Minutes: 0 ; Procedure Name: Mantoux test ; Procedure Minutes: 0 ; Comments: 05/16/2011 12:16 - EVARISTO MENDOZA mantoux placed mid left forearm at 12:00 ; Last Reviewed Dt/Tm: 05/16/2011 00:00:00 SENIOR TECHNICAL ANALYST Procedure Dt/Tm: ; Anesthesia Minutes: 0 ; Procedure Minutes: 0 ; Last Reviewed Dt/Tm: SENIOR TECHNICAL ANALYST Procedure Dt/Tm: ; Anesthesia Minutes: 0 ; Procedure Minutes: 0 ; Last Reviewed Dt/Tm: SENIOR TECHNICAL ANALYST Histories (As Of : 05/03/2014 16:18:27 SENIOR TECHNICAL ANALYST) - Past Medical History Left kidney infection Name of Problem: Left kidney infection ; Onset Date: 2003 ; Recorder: SKIP SCHWARTZ LPN; Confirmation: Confirmed ; Classification: Medical ; Code: 15725302 ; Contributor System: Keraderm ; Last Updated: 01/18/2011 10:10 CDT ; Life Cycle Date: 10/24/2010 ; Life Cycle Status: Active ; Responsible Provider: SKIP SCHWARTZ LPN; Vocabulary: SNOMED CT ; Comments: 10/24/201015:18 - SKIP SCHWARTZ LPN function 12% date unknown Name of Problem: ; Onset Date: 01/08/2009 ; Recorder: MARCOS ROBB LPN; Confirmation: Confirmed ; Classification: Medical ; Code: 848576149 ; Last Updated: 04/08/2014 15:49 SENIOR TECHNICAL ANALYST ;Life Cycle Date: Unknown 10/10/2009 ; Life Cycle Status: Resolved ; Vocabulary: SNOMED CT ; ResolvedDate: Unknown 10/10/2009 ; Resolved Age: 19 years Name of Problem: ; Recorder: MARCOS ROBB LPN; Confirmation: Confirmed ; Classification: Medical ; Code: 245430009 ; Last Updated: 04/08/2014 15:49 SENIOR TECHNICAL ANALYST ; Life Cycle Date: Cnvarie3711/27/2010 ; Life Cycle Status: Resolved ; Vocabulary: SNOMED CT ; Resolved Date: Unknown 11/27/2010; Resolved Age: 20 years Family History (As Of: 05/03/2014 16:18:27 SENIOR TECHNICAL ANALYST) Grandfather: Relation: Grandfather ; Nomenclature: CA - Cancer of prostate ; Value: Positive Father: Relation: Father ; Gender: Male ; Negative History Sister: Relation: Sister ; Gender: Female ; Negative History Brother: Relation: Brother ; Gender: Male ; Negative History Grandfather: Relation: Grandfather ; Nomenclature: [place] - Renal cancer ; Value: Positive Uncle: Relation: Uncle ; Nomenclature: Kidney stone ; Value: Positive Anesth/Transfusion Anesthesia/Transfusions : Prior anesthesia Transfusion Acceptable in Emergency : Yes Yarsani/Other Objections to Blood Transfusions : No CECIL GONZALEZ CUSHION COVER INSPECTOR - 05/03/2014 16:10 SENIOR TECHNICAL ANALYST Medication History Medication List (As Of: 05/03/2014 16:18:27 SENIOR TECHNICAL ANALYST) Home Meds multivitamin, : multivitamin, ; Status: Documented ; Ordered As Mnemonic: PrenatalMultivitamins oral tablet ; Simple Display Line: 1 tab(s), PO, Daily ; Catalog Code: multivitamin, ; Order Dt/Tm: 04/08/2014 15:47:59 Allergy (As Of: 05/03/2014 16:18:27 SENIOR TECHNICAL ANALYST) Allergies (Active) No Known Medication Allergies Comments: Comment 1: NO KNOWN DRUG ALLERGIES ; Created By: Contributor_system [facility]_HX_ALRG_SYS; Reaction Status: Active ; Category: Drug ; Substance: No Known Medication Allergies ; Type: Unknown ; Updated By: Contributor_system [facility]_HX_ALRG_SYS; Reviewed Date: 05/03/2014 15:46 SENIOR TECHNICAL ANALYST ID Screen TB Symptoms Grid Bloody Sputum : No Fatigue : No Fever : No Loss of Appetite : No Night Sweats : No Persistent Cough Greater Than 3 Weeks : No Weight Loss : No CECIL GONZALEZ NP - 05/03/2014 16:10 SENIOR TECHNICAL ANALYST Alcohol and Drug Use : No Employee of Institutional Living Environment : No Health Care Employee : Yes History of Exposure to TB : No History of Positive Chest X-Ray for TB : No History of Positive TB Skin Test : No Homeless : No Known Immunosuppression : No Recent Immigrant : No Resident of Institutional Living Environment : No CECIL GONZALEZ NP 05/03/2014 16:10 SENIOR TECHNICAL ANALYST Drug Resistant Organism : No Travel Within Last 21 Days : No MISTY ABEBE [employer] 05/03/2014 15:53 SENIOR TECHNICAL ANALYST Dependent Habits Tobacco Use/Currently Using : No Exposure to Tobacco Smoke : Other: Former smoker: quit 03/2014 Smoking Status : Former smoker MISTY ABEBE [facility] 05/03/2014 15:53 SENIOR TECHNICAL ANALYST Tobacco Use Grid Type : Cigarettes MISTY ABEBE [facility] 05/03/2014 15:53 SENIOR TECHNICAL ANALYST Alcohol Use : No MAGNOLIA MISTY [facility] 05/03/2014 15:53 SENIOR TECHNICAL ANALYST Caffeine Use Grid Caffeine Use : None MISTY ABEBE [facility] [employer] 05/03/2014 15:53 SENIOR TECHNICAL ANALYST Recreational Drug Use Grid Drug Use : None MAGNOLIA MISTY [facility] 05/03/2014 15:53 SENIOR TECHNICAL ANALYST Psychosocial Emotional Support Available : Yes Financial Concerns : No 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 MISTY ABEBE [facility] 05/03/2014 15:53 SENIOR TECHNICAL ANALYST Genetic/Infection Screen Infection History : History of Varicella or Immunized for Varicella CECIL GONZALEZ NP - 05/03/2014 16:10 SENIOR TECHNICAL ANALYST Ethnic Background Grid Cajun : Self, Baby's father CECIL GONZALEZ NP - 05/03/2014 16:10 SENIOR TECHNICAL ANALYST Other : Other relative (Comment: factor V Leiden carriers in Maternal family [CECIL GONZALEZ NP - 05/03/2014 16:10 SENIOR TECHNICAL ANALYST] ) CECIL GONZALEZ NP - 05/03/2014 16:10 SENIOR TECHNICAL ANALYST Exam Mental Status Antepartum : Normal HEENT Antepartum : Normal Thyroid Antepartum : Normal Breasts Antepartum : Normal Cardiovascular Antepartum : Normal Respiratory Antepartum : Normal Gastrointestinal Antepartum : Normal Musculoskeletal Antepartum : Normal Extremities Antepartum : Normal Integumentary Antepartum : Normal Lymph Nodes Antepartum : Normal CECIL GONZALEZ NP - 05/03/2014 16:51 SENIOR TECHNICAL ANALYST Pelvic Exam Vulva : Within normal limits Vagina : Within normal limits Cervix : Within normal limits Uterus : Within normal limits Uterus Enlarged To : 8 week(s) Adnexa : Within normal limits Urethra : Within normal limits Bladder : Within normal limits Rectum : Within normal limits CECIL GONZALEZ CUSHION COVER INSPECTOR - 05/03/2014 16:51 SENIOR TECHNICAL ANALYST Antepartum Note Risk Factors, Antepartum Current Preg : None CECIL GONZALEZ NP - 05/03/2014 16:51 SENIOR TECHNICAL ANALYST Antepartum Note : no concerns today. discussed sono report. lives in [place], plans appointments in [place]. CECIL FOWLER CUSHION COVER INSPECTOR - 05/03/2014 16:57 SENIOR TECHNICAL ANALYST Education Individuals Taught : Patient Barriers to Learning : None evident Teaching Method : Explanation, Printed materials CECIL GONZALEZ NP - 05/03/2014 16:51 SENIOR TECHNICAL ANALYST Alcohol : Verbalizes understanding Anxiety/Depression Symptoms : Verbalizes understanding Childbirth Classes : Verbalizes understanding Domestic Violence : Verbalizes understanding Environmental/Work Hazards : Verbalizes understanding Exercise : Verbalizes understanding Expected Course of Care : Verbalizes understanding HIV Testing : Verbalizes understanding Influenza Vaccine : Verbalizes understanding Medication Use : Verbalizes understanding Nutrition Counseling : Verbalizes understanding Recreational Drugs : Verbalizes understanding Risk Factors Identified : Verbalizes understanding Routine Tests : Verbalizes understanding Seat Belt Use : Verbalizes understanding Sexual Activity : Verbalizes understanding Smoking Counseling : Verbalizes understanding Tobacco Assessment : Verbalizes understanding Toxoplasmosis Precautions : Verbalizes understanding Travel : Verbalizes understanding Ultrasound : Verbalizes understanding CECIL GONZALEZ CUSHION COVER INSPECTOR - 05/03/2014 16:51 SENIOR TECHNICAL ANALYST Source: [facility] POWERCHART Document Id: [id number] SENIOR TECHNICAL ANALYST!3 OR TECHNICAL ANALYST documented in this encounter Miscellaneous Notes Telephone Encounter - Conversion, Historical Provider Ser - 07/14/2014 7:56 AM CDT *Phone Message Document Contains Addenda Addendum by GABRIELLE FAUST RN on 14 July 2014 08:17:36 CDT Called patient. She was seen in urgent care last night due to nausea and headache. She states she was given tylenol #3 and this did help. She states she woke up at 2 am, felt lightheaded/dizzy and almost blaced out, she then proceeded to have 10-15 minutes of violent hyperemesis. She states no vomiting since. She states not getting much sleep last night due to feeling ill. She states no fever, hot/cold spells, abdominal pain/cramping. She states she is still voiding with last void at 2 am. She states she continues to have a headache today. She states she is able to eat, but everytime she eats she has diarrhea. She is wondering what to do. Per Dr. Peter patient to continue Tylenol for headache, immodium for diarrhea. Patient to do frequent fluids, small/bland diet. Patient to call back if symptoms worsen, unable to keep down food/fluids, decreased urination. patient in agreement with plan. From: MICHAELA EDMOND ( Family Medicine Game Agent) To: Obstetrics/Gynecology Nurse Line; Sent: 07/14/2014 07:56:25 CDT Subject: *Phone Message Caller is: ( X ) Patient ( ) Mother ( ) Father ( ) Spouse ( ) Daughter ( ) Son ( ) Pharmacy ( ) Other: Physician: OB Patient MRN #: Reason for Call: symptoms Message: Patient was seen in last night for head ache, she woke this morning with head ache and vomiting. She can be reached at [phone]. Advice/Action: Source used: ( ) Verbalizes understanding of instructions ( ) Instructed to call back if symptoms worsen or do not resolve ( ) Refused to see provider ( ) Appointment Scheduled ( ) OK to leave message on voice mail ( ) Patient told to expect return call: ( ) today ( ) tomorrow ( ) next work day ( ) Patient's email ( ) Patient told physician out of office, will call upon return call on ( ) ( ) Patient told physician out of office, routed to other physician ( ) Other ( ) Call back telephone number ( ) Call back cell phone number ( ) Source: [facility] POWERCHART Document Id: [id number] Telephone Encounter - Gabrielle Faust R.N. - 05/23/2014 2:43 PM SENIOR TECHNICAL ANALYST *Phone Message Document Contains Addenda Addendum by CECIL GONZALEZ CUSHION COVER INSPECTOR on 23 May 2014 16:06:48 SENIOR TECHNICAL ANALYST Rx sent. Pt notified. MB From: GABRIELLE FAUST RN ( Nurseline/Refill Nurse) To: CECIL GONZALEZ CUSHION COVER INSPECTOR; Sent: 05/23/2014 14:43:47 SENIOR TECHNICAL ANALYST Subject: *Phone Message Caller is: ( x ) Patient ( ) Mother ( ) Father ( ) Spouse ( ) Daughter ( ) Son ( ) Pharmacy ( ) Other: Physician: Cecil Gonzalez Patient MRN #: Reason for Call:Medication request Message: Cherry is calling stating she is 11 weeks and recently seen Cecil Gonzalez for a new OB visit. she states she has tried unisom, gisella gayathri, gisella tea, vitamin B6 with no relief of hernausea. she states she has had no vomiting, but continues to struggle with nausea. Patient is wondering if Zofran can be ordered for her. Cheri in [place] for pharmacy. patient can be reached at [phone] Advice/Action: routing to Cecil for review. Source used: ( ) Verbalizes understanding of instructions ( ) Instructed to call back if symptoms worsen or do not resolve ( ) Refused to see provider ( ) Appointment Scheduled ( ) OK to leave message on voice mail ( ) Patient told to expect return call: ( ) today ( ) tomorrow ( ) next work day ( ) Patient's email ( ) Patient told physician out of office, will call upon return call on ( ) ( ) Patient told physician out of office, routed to other physician ( ) Other ( ) Call back telephone number ( ) Call back cell phone number ( ) Source: [facility] POWERCHART Document Id: [id number] Miscellaneous - Cecil Gonzalez, R.N. - 05/03/2014 4:54 PM CST Ambulatory Patient Summary [facility] [address], [address] [place], [place] [id number] Visit Information Name: CHERRY CHEN [facility] Number: [id number] Current Date: 05/03/2014 16:54:05 Physicians Attending Provider: CECIL GONZALEZ NP Primary Care Provider: SOFIE GARCIA NP CHERRY CHEN has been given the following [...] the Following Medications: Medication list as of 05-03-14 16:54 Attention: If you have any medications at home that are not on this list, DO NOT take them until youcontact your provider for clarification. Give a copy of your medication list to your primary care provider. Update your medication list any time medications or doses are changed and carry your medication list at all times in case of emergency. Electronically Signed By: CECIL GONZALEZ CUSHION COVER INSPECTOR Signed On:03-MAY-2014 16:54:02 Your Allergies & Intolerances Substance Reaction Symptoms [...] appointment detail needed. Your Goals/Additional instructions: Source: [facility] POWERCHART Document Id: [id number] OR TECHNICAL ANALYST Miscellaneous - Cecil Gonzalez, R.N. - 05/03/2014 4:54 PM CST [facility] [address], [address] [place], [place] [id number] Visit Information Name: CHERRY CHEN [facility] Number: [id number] Visit Date: 05/03/2014 16:54:04 Attending Provider: CECIL GONZALEZ CUSHION COVER INSPECTOR Primary Care Provider: SOFIE GARCIA NP CHERRY CHEN has been given the following [...] the Following Medications: Medication list as of 05-03-14 16:54 Attention: If you have any medications at home that are not on this list, DO NOT take them until youcontact your provider for clarification. Give a copy of your medication list to your primary care provider. Update your medication list any time medications or doses are changed and carry your medication list at all times in case of emergency. Electronically Signed By: CECIL GONZALEZ CUSHION COVER INSPECTOR Signed On:03-MAY-2014 16:54:02 Additional Information: Source: [facility] POWERCHART Document Id: [id number] OR TECHNICAL ANALYST Telephone Encounter - Conversion, Historical Provider Ser - 04/12/2014 3:03 PM CST *Phone Message Document Contains Addenda Addendum by RAYMON MCNULTY on 13 April 2014 08:08:22 SENIOR TECHNICAL ANALYST Appointment scheduled, pt aware. sla Addendum by REHAN LAWLER MD on 13 April 2014 07:01:20 SENIOR TECHNICAL ANALYST From: REHAN LAWLER MD To: Obstetrics/Gynecology Game Agent; Sent: 04/13/2014 07:01:20 SENIOR TECHNICAL ANALYST Subject: RE: *Phone Message lab ordered From: RAYMON MCNULTY ( Obstetrics/Gynecology Game Agent) To: REHAN LAWLER MD; RAYMON MCNULTY; Sent: 04/12/2014 15:03:44 SENIOR TECHNICAL ANALYST Subject: *Phone Message Caller is: ( ) Patient ( ) Mother ( ) Father ( ) Spouse ( ) Daughter ( ) Son ( ) Pharmacy ( ) Other: Physician: Patient Reason for Call: Cherry weiss she needed repeat hcg on 04/15/14. She would liike to come in at 10:00. Message: Advice/Action: Dear Dr. Lawler, Could you order that lab draw? And I will get the appointment scheduled. Thank you, Raymon Patient Access Source used: ( ) Verbalizes understanding of instructions ( ) Instructed to call back if symptoms worsen or do not resolve ( ) Refused to see provider ( ) Appointment Scheduled ( ) OK to leave message on voice mail ( ) Patient told to expect return call: ( ) today ( ) tomorrow ( ) next work day ( ) Patient's email ( ) Patient told physician out of office, will call upon return call on ( ) ( ) Patient told physician out of office, routed to other physician ( ) Other ( ) Call back telephone number ( ) Call back cell phone number ( ) Source: [facility] Swype Document Id: [id number] documented in this encounter Plan of Treatment Not on filedocumented as of this encounter Procedures Procedure Name Priority Date/Time Associated Comments Diagnosis BACTERIAL CULTURE, Routine 05/03/2014 5:17 PM Res ults for this AEROBIC, URINE SENIOR TECHNICAL ANALYST procedure are in the results section. URINALYSIS WITH Routine 05/03/2014 5:17 PM Result s for this MICROSCOPIC SENIOR TECHNICAL ANALYST procedure are i n the results section. ABSC GEL Routine 05/03/2014 5:13 PM Results f or this SENIOR TECHNICAL ANALYST procedure are i n the results section. SYPHILIS TOTAL AB W/ Routine 05/03/2014 5:13 PM R esults for this REFLEX S SENIOR TECHNICAL ANALYST procedure are i n the results section. HIV-1/-2 AG AND AB Routine 05/03/2014 5:13 PM Res ults for this SCREEN SENIOR TECHNICAL ANALYST procedure are i n the results section. AUTOMATED Routine 05/03/2014 5:13 PM Results f or this DIFFERENTIAL, B SENIOR TECHNICAL ANALYST procedure ar e in the results section. ABORH, RBC Routine 05/03/2014 5:13 PM Results f or this SENIOR TECHNICAL ANALYST procedure are i n the results section. RUBELLA ANTIBODIES, Routine 05/03/2014 5:13 PM Re sults for this IGG SENIOR TECHNICAL ANALYST procedure are i n the results section. HEPATITIS B SURFACE Routine 05/03/2014 5:13 PM Re sults for this ANTIGEN SENIOR TECHNICAL ANALYST procedure are i n the results section. CBC WITH Routine 05/03/2014 5:13 PM Results f or this DIFFERENTIAL, B SENIOR TECHNICAL ANALYST procedure ar e in the results section. HEMOGLOBIN A1C, B Routine 05/03/2014 5:13 PM Resu lts for this SENIOR TECHNICAL ANALYST procedure are i n the results section. ABO/RH RETYPE Routine 05/03/2014 5:13 PM Results for this SENIOR TECHNICAL ANALYST procedure are i n the results section. WET PREP EXAM, Routine 05/03/2014 4:45 PM Results for this UROGENITAL SENIOR TECHNICAL ANALYST procedure are i n the results section. documented in this encounter Results Bacterial Culture, Aerobic, Urine (05/03/2014 5:17 PM SENIOR TECHNICAL ANALYST) apomio Method Time Signature Bacterial POWERCHART Culture, Aerobic, Urine HXPre Culture in POWERCHART progress HXFinal <10,000 POWERCHART cfu/mL Mixed hayley (multiple species present) Specimen (Source) Anatomical Collection Method Collection Time Re ceived Time Location / / Volume Laterality Urine, First 05/03/2014 5:17 PM Voided SENIOR TECHNICAL ANALYST Cecil Gonzalez APRN, [facility]- LAB MICROBIOLOGY - GENERAL ORDERABLES Performing Organization Address City/State/ZIP Code Phon e Number POWERCHART (ABNORMAL) Urinalysis, Complete, Includes Microscopic (05/03/2014 5:17 PM SENIOR TECHNICAL ANALYST) apomio Method Time Signature HXUr Color Yellow Colorless POWERCHART Clarity Clear Clear POWERCHART Glucose Negative Negative POWERCHART MGDL Protein, Ur, Dip Negative Negative POWERCHART MGDL HXBILIRUBIN Negative Negative POWERCHART Urobilinogen 0.2 0.2 MGDL POWERCHART pH, POCT, Urine 6.0 <5.0 POWERCHART HXBLOOD Negative Negative POWERCHART Ketones, QL(U) Negative Negative POWERCHART MGDL HXNITRITE Negative Negative POWERCHART Leukocyte Negative Negative POWERCHART Esterase Specific 1.014 POWERCHART Lorenzo, POCT, U HXUR WBC. None Seen None Seen POWERCHART HPF HXUR RBC. Occ-2 None Seen POWERCHART HPF Squamous Occ-3 (A) None Seen POWERCHART Epithelial HPF Specimen (Source) Anatomical Collection Method Collection Time Re ceived Time Location / / Volume Laterality Urine, First 05/03/2014 5:17 PM Voided SENIOR TECHNICAL ANALYST Cecil Dana Carlos [facility] LAB URINE ORDERABLES Performing Organization Address City/State/ZIP Code Phon e Number POWERCHART (ABNORMAL) Automated Differential (05/03/2014 5:13 PM SENIOR TECHNICAL ANALYST) Patholo gist Method Time Signature Absolute 8.92 (H) 1.70 - POWERCHART Neutrophils 7.00 109L Monocytes 1.34 (H) 0.30 - POWERCHART 0.90 X109L Eosinophils 0.22 0.05 - POWERCHART 0.50 X109L Absolute 0.05 0.00 - POWERCHART Basophil 0.30 X109L Lymphocytes 3.39 (H) 0.90 - POWERCHART 2.90 X109L Specimen Anatomical Collection Method Collection Time Receive d Time (Source) Location / / Volume Laterality Blood 05/03/2014 5:13 PM 5:13 SENIOR TECHNICAL ANALYST PM SENIOR TECHNICAL ANALYST Cecil Dana Carlos [facility] LAB BLOOD ADD-ON Performing Organization Address City/[facility] Phon e Number POWERCHART (ABNORMAL) CBC with Differential (05/03/2014 5:13 PM SENIOR TECHNICAL ANALYST) Analysis Performed At Patho logist Time Signature Hematocrit 40.7 34.9 - POWERCHART 44.5 Hemoglobin 13.8 12.0 - POWERCHART 15.5 GDL MCV 93.8 82.0 - POWERCHART 98.0 FL Platelet Count 298 150 - 450 POWERCHART X109L Erythrocytes 4.34 3.90 - POWERCHART 5.03 [id number] HX RDW 12.9 11.9 - POWERCHART 15.5 Leukocytes 13.9 (H) 3.5 - 10.5 POWERCHART X109L Specimen (Source) Anatomical Collection Method Collection Time Re ceived Time Location / / Volume Laterality Blood 05/03/2014 5:13 PM SENIOR TECHNICAL ANALYST Cecil Dana Carlos [facility] LAB BLOOD ADD-ON Performing Organization Address City/State/ZIP Code Phon e Number POWERCHART Syphilis IgG Antibody with Reflex (05/03/2014 5:13 PM SENIOR TECHNICAL ANALYST) P athologist Signature Syphilis IgG Negative Negative POWERCHART Ab, S Comment: No serologic evidence of exposure to syp hilis. Test Performed by: [facility] [address] [place] [id number] Skin Former: Abiodun Almanza Specimen (Source) Anatomical Collection Method Collection Time Re ceived Time Location / / Volume Laterality Blood 05/03/2014 5:13 PM SENIOR TECHNICAL ANALYST Cecil Gonzalez APRN, [facility] LAB BLOOD ADD-ON Performing Organization Address City/[facility] Code Phon e Number POWERCHART Rubella Antibodies, IgG (05/03/2014 5:13 PM SENIOR TECHNICAL ANALYST) athologist Signature HX Rubella Positive POWERCHART IgG-Sperry Comment: Results suggest response to immunization or prior exposure to the virus. REFERENCE VALUE------ Vaccinated: Positive (>=1.0 AI) Unvaccinated: Negative (<=0.7 AI) Rubella IgG Antibody Index 2.0 POW ERCHART Comment: Test Performed by: [facility] [address] [place] [id number] Skin Former: Abiodun Almanza Specimen (Source) Anatomical Collection Method Collection Time Re ceived Time Location / / Volume Laterality Blood 05/03/2014 5:13 PM SENIOR TECHNICAL ANALYST Cecil Gonzalez APRN, [facility] LAB MICROBIOLOGY - BLOOD OR DERABLES Performing Organization Address City/[facility]/ZIP Code Phon e Number POWERCHART HIV-1/-2 Ag and Ab Screen (05/03/2014 5:13 PM SENIOR TECHNICAL ANALYST) athologist Signature HIV-1/-2 Negative Negative POWERCHART Antibody Comment: Negative result does not rule out HIV in fection. If acute HIV infection is suspected in a hi gh-risk individual, submit plasma specimen for H IV-1 RNA quantification test (HIVQU) and/or HIV-2 DNA/RNA test (FHV2Q). Test Performed by: [place] [id number] Skin Former: Abiodun Almanza Specimen (Source) Anatomical Collection Method Collection Time Re ceived Time Location / / Volume Laterality Blood 05/03/2014 5:13 PM SENIOR TECHNICAL ANALYST EVELIO Hernández APRN-[facility] LAB MICROBIOLOGY - BLOOD OR DERABLES Performing Organization Address [facility] Phon e Number POWERCHART Hepatitis B Surface Antigen (05/03/2014 5:13 PM SENIOR TECHNICAL ANALYST) athologist Signature HBs Antigen, S Negative Negative POWERCHART Comment: Test Performed by: [place] [address] Skin Former: Abiodun Almanza Specimen (Source) Anatomical Collection Method Collection Time Re ceived Time Location / / Volume Laterality Blood 05/03/2014 5:13 PM SENIOR TECHNICAL ANALYST Cecil Gonzalez APRN [facility] LAB MICROBIOLOGY - BLOOD OR DERABLES Performing Organization Address [facility] Phon e Number POWERCHART Hemoglobin A1c (05/03/2014 5:13 PM SENIOR TECHNICAL ANALYST) athologist Signature Hemoglobin A1c, 5.1 <=5.6 A1C POWERCHART B Specimen (Source) Anatomical Collection Method Collection Time Re ceived Time Location / / Volume Laterality Blood 05/03/2014 5:13 PM SENIOR TECHNICAL ANALYST Cecil Gonzalez APRN [facility] LAB BLOOD ADD-ON Performing Organization Address City/[facility]/ZIP Code Phon e Number POWERCHART ABSC GEL (05/03/2014 5:13 PM SENIOR TECHNICAL ANALYST) Patholo gist Method Time Signature HX ABSC Gel Negative ABSC POWERCHART Specimen (Source) Anatomical Collection Method Collection Time Re ceived Time Location / / Volume Laterality 05/03/2014 5:13 PM SENIOR TECHNICAL ANALYST EVELIO Hernández APRN-BC LAB HISTORICAL ORDERS Performing Organization Address City/[facility]/ZIP Code Phon e Number POWERCHART ABO/Rh (05/03/2014 5:13 PM SENIOR TECHNICAL ANALYST) athologist Signature ABORh Interp A POS POWERCHART Specimen (Source) Anatomical Collection Method Collection Time Re ceived Time Location / / Volume Laterality 05/03/2014 5:13 PM SENIOR TECHNICAL ANALYST Cecil Cortez Carlos [facility] LAB BLOOD BANK TEST ORDERAB LES Performing Organization Address [facility] Phon e Number POWERCHART ABO/RH RETYPE (05/03/2014 5:13 PM SENIOR TECHNICAL ANALYST) athologist Signature HX ABO/Rh A POS POWERCHART Retype Specimen (Source) Anatomical Collection Method Collection Time Re ceived Time Location / / Volume Laterality 05/03/2014 5:13 PM SENIOR TECHNICAL ANALYST Cecil Cortez Carlos [facility], [facility] LAB BLOOD BANK TEST ORDERAB LES Performing Organization Address [facility] Code Phon e Number POWERCHART (ABNORMAL) Wet Prep Exam, Urogenital (05/03/2014 4:45 PM SENIOR TECHNICAL ANALYST) athologist Signature HXWet Prep (POSITIVE) POWERCHART HXFinal Trichomonas POWERCHART : None HXFinal Clue Cells: POWERCHART Few (0-10/hpf) HXFinal Yeast: None POWERCHART Specimen (Source) Anatomical Collection Method Collection Time Re ceived Time Location / / Volume Laterality Vagina 05/03/2014 4:45 PM SENIOR TECHNICAL ANALYST Cecil Cortez Carlos [facility] LAB MICROBIOLOGY - GENERAL ORDERABLES Performing Organization Address [facility] Phon e Number POWERCHART documented in this encounter Visit Diagnoses Not on filedocumented in this encounter Care Teams Senior Insight Manager Relationship Specialty Start Date End Date Gabrielle Jara M.D. PCP - General Family Medicine 10/04/13 [address] [place] [id number] documented as of this encounter
--- OUTSIDE RECORDS SUMMARY | 2021-11-21 03:05 | XMS_ITS | Encounter Summary ---
:1990 Author Organization [facility] Address [address] [place] [address] Care Team Providers Name Role Phone Unavailable Primary Care Provider Unavailable Encounter Details Date Type Department Care Team Description 12/25/2012 Hospital Encounter HX [facility] FAMILY ME Raj Miller, N.P. [address] [place] [phone] (Wo rk) Social History Tobacco Use Types Packs/Day Years Used Date Smoking Tobacco: Never Assessed Sex Assigned at Date Recorded Not on file documented as of this encounter Last Filed Vital Signs Vital Sign Reading Time Taken Comments Blood Pressure 130/80 12/25/2012 8:31 AM CDT Pulse 90 12/25/2012 8:31 AM CDT Temperature - - Respiratory Rate 18 12/25/2012 8:31 AM CDT Oxygen Saturation - - Inhaled Oxygen Concentration - - Weight 96.8 kg (213 lb 6.5 oz) 12/25/2012 8:31 AM CDT Height 182 cm (5' 11.65) 12/25/2012 8:31 AM CDT Body Mass Index 29.22 12/25/2012 8:31 AM CDT documented in this encounter Progress Notes Megan Miller, N.P. - 12/25/2012 8:22 AM CDT [id number] CHIEF COMPLAINT/REASON FOR VISIT 1. Annual physical. 2. Concern about bleeding and pain with intercourse. 3. Persistent ear infection. 4. Bites. HISTORY OF PRESENT ILLNESS Cherry is a 22-year-old female who is here today with several concerns. Her first concern is thatshe would like to have her physical today. She is due for Pap smear. She does not report having regular menstrual cycles due to the Implanon. She had this placed November 2010. She states that in the past 4 months she has noticed some bleeding after intercourse as well as some occasional lower abdominalpain. She states the bleeding will usually last for a day or two describes it as spotting and typically bright red. She has been with the same partner for the past 21/2 years and is unsure why this is happening. Other concern today includes a persistent problem with her left ear. She has treated for ear infection October 2012 which she reports her symptoms had improved but then they returned again. She has had 2 sets of ear tubes in the past with her last one being at age 17. She has been treated twicealready this year for an ear infection of the left ear. Her only other concern today is regarding what she thinks are insect bites on her lower extremities. She noticed them yesterday when she woke up.She states they are little bit itchy. She reports nobody else in her house has had these symptoms although her significant other has had chiggers. She states they are actually better today than they were yesterday. CURRENT MEDICATIONS Medications reviewed. No changes today. Presently she is taking ibuprofen 800 mg 3 times a day as needed for pain or discomfort and Implanon was placed on December 01, 2010. ALLERGIES No known drug allergies. PAST MEDICAL HISTORY/SURGICAL HISTORY 1. Tobacco use. 2. Kidney infections. 3. Acne. 4. Headaches. SURGICAL HISTORY: Tonsillectomy in 1997. Ear tubes in 1999 and one other time as a child. FAMILY HISTORY Family history is reviewed and updated. Please see EMR. SOCIAL HISTORY Cherry has a 3-year-old daughter. She has a significant other that she has been with the past 21/2 years. She reports no current use of tobacco. 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 VITAL SIGNS Temperature 35.7 pulse 90, respirations 18, blood pressure 130/80, O2 sat 97% on room air. Height is182 cm, weight 96.8 kg. BMI is 29. PHYSICAL EXAMINATION GENERAL: Cherry is alert, oriented times 3, appears in no acute distress. HEENT: Head is normocephalic, atraumatic. Right TM is shiny gay and intact with no erythema or effusion present. Left TM does have an effusion present and light reflex is distorted. Middle landmarks are not visible. However, there is no erythema noted. Nasal mucosa is moist and no significant swelling or redness noted. Oropharynx without erythema, exudate or swelling. NECK: Neck is supple. No lymphadenopathy. No carotid bruits or thyromegaly. HEART: Heart rate is regular. S1, S2 is present. No murmur or rub. LUNGS: Lungs are clear to auscultation. BREASTS: Breast exam yields no identifiable nodules or masses. No axillary lymphadenopathy. ABDOMEN: Soft, nondistended. Bowel sounds present times 4. Normoactive. : External genitalia appear normal. Speculum exam reveals normal-appearing cervix that is not friable. Three different specimens were obtained including wet prep, GC/chlamydia and Pap smear. Manual exam yields no CMT, I do appreciate some slight fullness noted in the right adnexal area. SKIN: Skin is also examined. She has some scattered, what appear to be some insect bites noted on her lower extremities. No other bites were noted on her body. These bites are approximately 0.5 cm in size, round and slightly red and raised. No vesicles or infectious symptoms. LABORATORY: GC/chlamydia, lipid panel, wet prep and Pap smear as well as pelvic ultrasound pending at time of dictation. IMPRESSION/REPORT/PLAN 1. Annual exam. 2. Screening for cervical cancer, venereal disease, and lipid disorders. 3. Dyspareunia. 4. Chronic otitis media with effusion, left ear. 5. Insect bite. PLAN: 1. Regarding age appropriate screenings, these were all reviewed with Cherry today. We did discuss possible Gardasil vaccination which she will be happy to receive some information on that at this time but not necessarily proceed with vaccination. We will get her Pap smear today as well as her lipids and she will otherwise be up-to-date according to health maintenance guidelines. 2. In regards to bleeding after intercourse and dyspareunia, wet prep as well as GC/chlamydia were obtained today as well as her Pap smear. We will also order a pelvic ultrasound due to the fullness appreciated in her right adnexal area. We will contact her regarding these results once they are available. 5. In regards to the bites noted on her legs today, I suggested [id number] treatment with antihistamines and/or topical hydrocortisone and certainly if they are worsening or persisting further followup would be warranted. 6. Referral was made to ENT today for further evaluation and management of her chronic otitis media with effusion of the left ear. Questions have been addressed and she is agreeable to this plan of care. Patient Education #1 Patient/parent/caregiver is ready to learn. No apparent learning barriers were identified. Learning preferences included listening. Explained diagnosis and treatment plan. Patient/parent/caregiver expressed understanding of the content. Eladia Belcher/tarun Electronically Signed By: MEGAN MILLER NP On: 12/28/2012 09:37 AM Modified by and Electronically Signed by: MEGAN MILLER NP On: 12/28/2012 09:37 AM Source: [facility] MHSDOLBEYNONRADSYS Document Id: [id number] documented in this encounter Miscellaneous Notes Miscellaneous - Megan Miller N.P. - 01/04/2013 10:01 AM CDT Normal Results Letter 04 January 2013 CHERRY MAZARIEGOS [address] [phone] Dear Nate NEAL, it was good to see you the other week. Below is the result of your PAP smear, it was a normalresult. We should repeat this test in 3 years. I know you were concerned about bleeding after intercourse. I am not sure what is causing this but it is reassuring that all the tests (STDs, yeast, pelvic ultrasound, and PAP) are all normal.It is possible the implanon could be the cause of you symptoms.I would recommend monitoring of your symptoms for now. Certainly if the bleeding worsens please let us know. Please review your results and let me know what questions you have. Take care! 1.) (Medium Importance) Result Comment by CONTRIBUTOR_SYSTEM, [facility]_MML_SYS on 01 January 2013 16:00CDT A. ThinPrep Pap Test Screen (Cervical/Endocervical HPV Reflex): Satisfactory for evaluation. Negative for intraepithelial lesion or malignancy. Result Name Current Result Spec [facility] See Comment 12/25/2012 ThPrep Scrn Accn-[place] [id number] 12/25/2012 ThPrep Scrn Cyto-[place] See Comment 12/25/2012 ThPrep Scrn Fnl-[place] See Comment 12/25/2012 Sincerely, MEGAN MILLER [address] [place] [address] Electronic Signature Electronically Signed By: MEGAN MILLER NP On: 04 January 2013 This document has images extracted. Source: [facility] [employer] Document Id: [id number] Miscellaneous - Megan Miller, N.P. - 12/25/2012 10:50 AM CDT Normal Results Letter 25 December 2012 CHERRY MAZARIEGOS [address] [facility] [address] [facility] [id number] Dear CHERRY MAZARIEGOS, I am pleased to report that your results from the following diagnostic test(s) are normal. Please follow up with us as we discussed during your visit or sooner if you have any concerns. If you have questions or concerns, please do not hesitate to call our office. Result Name Current Result Normal Range Cholesterol (mg/dL) 130 12/25/2012 0 - 200 Trig (mg/dL) 53 12/25/2012 9 - 150 HDL (mg/dL) 36 12/25/2012 35 - 60 LDL Calculated (mg/dL) (L) 84 12/25/2012 100 - 129 Chol/HDL Ratio 4 12/25/2012 Sincerely, MEGAN MILLER [address] [place] [address] Electronic Signature Electronically Signed By: MEGAN MILLER NP On: 25 December 2012 This document has images extracted. Source: [facility] [employer] Document Id: [id number] Miscellaneous - Megan Miller, N.P. - 12/25/2012 9:15 AM CDT Ambulatory Patient Summary [facility] [address] [address] Visit Information Name: CHERRY MAZARIEGOS [facility] Number: [id number] Current Date: 12/25/2012 09:15:26 Physicians Attending Provider: MEGAN MILLER NP Primary Care Provider: MEGAN MILLER NP Your Medications Here is a list of your medications. It is important to take your medications as directed. Use a pillbox or chart to help remind you to take your medications. Please let your doctor or nurse know if you have problems taking your medications. Medication/Strength Dose Route Frequency Indications/Special Instructions/Comments/Notes *tretinoin topical (tretinoin 0.1% topical gel) 1 carine Topical once a day (at bedtime) (wash hands before applying) etonogestrel (Implanon) 68 mg Subcutaneous once ibuprofen (ibuprofen 800 mg oral tablet) 800 mg Oral three times a day as needed for Pain Take with food *adapalene topical (Differin 0.1% topical cream) 1 carine Topical once a day (at bedtime) * You have let us know that you are not taking this medication as listed. Please talk with your primary care provider or the health care provider who prescribed the medication as soon as possible. Attention: If you have any medications at home that are not on this list, DO NOT take them until youcontact your provider for clarification. Your Allergies & Intolerances Substance Reaction Symptoms Category Comments No Known Allergies Drug Your Problem List Problem Status Onset Comments Left kidney infection Active 04/14/2003 10/24/10 function 12% date unknown Acne vulgaris Active 02/13/2011 Headache Active 2010 Tobacco use Active 2002 09/03/11 unknown date of dx Your Upcoming Appointments Date Time Location Reason Provider No Appointments found Your Goals/Additional instructions: Source: [facility] POWERCHART Document Id: [id number] Miscellaneous - Megan Miller, N.P. - 12/25/2012 9:15 AM CDT Ambulatory Depart Summary [address] [place] [address] Visit Information Name: CHERRY MAZARIEGOS [facility] Number: [id number] Visit Date: 12/25/2012 09:15:25 Attending Provider: MEGAN MILLER NP Primary Care Provider: MEGAN MILLER NP CHERRY MAZARIEGOS has been given the following list of medications: Your Medications It is important to take your medications as directed. Use a pill box or chart to help remind you to take your medications. Please let your doctor or nurse know if you have problems taking your medications. Medication/Strength Dose Route Frequency Indications/Special Instructions/Comments/Notes *tretinoin topical (tretinoin 0.1% topical gel) 1 carine Topical once a day (at bedtime) (wash hands before applying) etonogestrel (Implanon) 68 mg Subcutaneous once ibuprofen (ibuprofen 800 mg oral tablet) 800 mg Oral three times a day as needed for Pain Take with food *adapalene topical (Differin 0.1% topical cream) 1 carine Topical once a day (at bedtime) * You have let us know that you are not taking this medication as listed. Please talk with your primary care provider or the health care provider who prescribed the medication as soon as possible. Attention: If you have any medications at home that are not on this list, DO NOT take them until youcontact your provider for clarification. Additional Information: Source: [facility] POWERCHART Document Id: [id number] Miscellaneous - Kaylee Mazariegos LPedroP.N. 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 Entered On: 12/25/2012 8:35 CDT Performed On: 12/25/2012 8:31 CDT by KAYLEE MAZARIEGOS [employer] SUPERVISOR Intake Chief Complaint : yearly phsical Temperature Core : 35.7 DegC(Converted to: 96.3 DegF) (LOW) Peripheral Pulse Rate : 90 /min Respiratory Rate : 18 /min Heart Rhythm : Regular Systolic Blood Pressure : 130 mmHg Diastolic Blood Pressure : 80 mmHg NIBP Mean : 97 mmHg BP Location : Left upper extremity Blood Pressure Cuff Size : Regular SpO2 : 97 % Oxygen Therapy : Room air Height : 182 cm(Converted to: 6 ft 0 inch(es), 71.65 inch(es)) Actual Weight : 96.8 kg(Converted to: 213 lb 7 oz) Dosing Weight Clinic : 96.8 kg Clinic BSA : 2.21 Body Mass Index : 29.22 kg/m2 KAYLEE MAZARIEGOS [facility] 12/25/2012 8:31 CDT General Info Information Given By : Patient Languages : Italian KAYLEE MAZARIEGOS [facility] 12/25/2012 8:31 CDT Subjective Pain Symptoms : No KAYLEE MAZARIEGOS [facility] 12/25/2012 8:31 CDT Dependent Habits Tobacco Use/Currently Using : No Exposure to Tobacco Smoke : Patient smokes Smoking Status : Former smoker KAYLEE MAZARIGEOS [facility] 12/25/2012 8:31 CDT Tobacco Use Grid Type : Cigarettes KAYLEE MAZARIEGOS [facility] 12/25/2012 8:31 CDT Alcohol Use : Yes KAYLEE MAZARIEGOS [facility] 12/25/2012 8:31 CDT Caffeine Use Grid Caffeine Use : None KAYLEE MAZARIEGOS [facility] 12/25/2012 8:31 CDT Recreational Drug Use Grid Drug Use : None KAYLEE MAZARIEGOS [facility] 12/25/2012 8:31 CDT Source: [employer] Document Id: [id number] CDT!38 documented in this encounter Plan of Treatment Not on filedocumented as of this encounter Procedures Procedure Name Priority Date/Time Associated Comments Diagnosis LIPID PANEL, S Routine 12/25/2012 9:41 AM Results for this CDT procedure are i n the results section. WET PREP EXAM, Routine 12/25/2012 9:14 AM Results for this UROGENITAL CDT procedure are i n the results section. N GONOR AMP SRC Routine 12/25/2012 8:51 AM Result s for this CDT procedure are i n the results section. N GONOR AMP DNA Routine 12/25/2012 8:51 AM Result s for this CDT procedure are i n the results section. C TRACH AMP SRC Routine 12/25/2012 8:51 AM Result s for this CDT procedure are i n the results section. C TRACH AMP RNA Routine 12/25/2012 8:51 AM Result s for this CDT procedure are i n the results section. THINPREP SCREEN HPV Routine 12/25/2012 8:51 AM Re sults for this REFLEX CDT procedure are i n the results section. documented in this encounter Results (ABNORMAL) Lipid Panel (12/25/2012 9:41 AM CDT) P athologist Signature Cholesterol, 130 0 - 200 POWERCHART Total MGDL Comment: <200 mg/dL Desirable 200-239 mg/dL Borderline High >239 mg/dL High HX HDL 36 35 - 60 MGDL POWERCHART Comment: > 60 mg/dL Desirable 40 ? 60 mg/dL Low Risk <40 mg/dL Undesirable Triglycerides 53 9 - 150 MGDL POWERCHART Comment: <150 mg/dL Desirable 150-199 mg/dL Borderline High 200-499 mg/dL High > 499 Very High Calculated LDL 84 (L) 100 - 129 MGDL POWERCHART Total Cholesterol/HDL Ratio 4 PO WERCHART Specimen (Source) Anatomical Collection Method Collection Time Re ceived Time Location / / Volume Laterality Blood 12/25/2012 9:41 AM CDT Megan Miller N.P. LAB BLOOD ADD-ON Performing Organization Address City/[facility] Code Phon e Number POWERCHART (ABNORMAL) Wet Prep Exam, Urogenital (12/25/2012 9:14 AM CDT) Analysis Performed At Patho logist Time Signature HXWet Prep (POSITIVE) POWERCHART HXFinal Trichomonas: POWERCHART None HXFinal Clue Cells: POWERCHART None HXFinal Yeast: None POWERCHART HXFinal Sperm: Few POWERCHART (0-10/hpf) WBC few HXFinal RBC none POWERCHART HXFinal Epis POWERCHART (squamous) moderate HXFinal Bacteria few POWERCHART WBC few Specimen (Source) Anatomical Collection Method Collection Time Re ceived Time Location / / Volume Laterality Vagina 12/25/2012 9:14 AM CDT Megan Miller N.P. LAB MICROBIOLOGY - GENERAL O RDERABLES Performing Organization Address City/State/ZIP Code Phon e Number POWERCHART HX-N gonor Amp DNA (12/25/2012 8:51 AM CDT) athologist Signature HXN gonor Amp Negative POWERCHART DNA-[place] Specimen (Source) Anatomical Collection Method Collection Time Re ceived Time Location / / Volume Laterality 12/25/2012 8:51 AM CDT Narrative POWERCHART - 12/26/2012 11:10 PM CDT Test Performed by: [address] [address] Credentialing Analyst: Gerardo rodriguez III, M.D. Megan Miller NPedroP. LAB HISTORICAL ORDERS Performing Organization Address City/State/ZIP Code Phon e Number POWERCHART HX-N gonor Amp Src (12/25/2012 8:51 AM CDT) athologist Signature HXN gonor Amp VAGINAL POWERCHART Src-[place] Specimen (Source) Anatomical Collection Method Collection Time Re ceived Time Location / / Volume Laterality 12/25/2012 8:51 AM CDT Megan Miller N.P. LAB HISTORICAL ORDERS Performing Organization Address City/State/ZIP Code Phon e Number POWERCHART HX-C trach Amp RNA (12/25/2012 8:51 AM CDT) [facility] Method Time Signature Chlamydia Negative POWERCHART trachomatis amplified RNA Specimen (Source) Anatomical Collection Method Collection Time Re ceived Time Location / / Volume Laterality 12/25/2012 8:51 AM CDT Megan Miller N.P. LAB HISTORICAL ORDERS Performing Organization Address City/State/ZIP Code Phon e Number POWERCHART HX-C trach Amp Src (12/25/2012 8:51 AM CDT) athologist Signature HXC trach Amp VAGINAL POWERCHART Src-[place] Specimen (Source) Anatomical Collection Method Collection Time Re ceived Time Location / / Volume Laterality 12/25/2012 8:51 AM CDT Megan Miller N.P. LAB HISTORICAL ORDERS Performing Organization Address City/State/ZIP Code Phon e Number POWERCHART Pathology ThinPrep Screen HPV Reflex (12/25/2012 8:51 AM CDT) [facility] Method Time Signature Interpretation [id number] POWERCHART HXThPrep Scrn See Comment POWERCHART [facility] Comment: A. ??ThinPrep Pap Test Screen (Cervical/ Endocervical HPV Reflex): Satisfactory for evaluation. Negative for intraepithelial lesion or m alignancy. HXThPrep Scrn [facility] See Comment [facility]LVIA RCHART Comment: Report electronically signed by Terrance Chi, SCT(ASCP) 01/01/2013 15:54 Interpreted by: Christopher Dickerson, TRACIE(ASCP) HX Spec [facility] See Comment POWERCHART Comment: A. ??ThinPrep Pap Test Screen (Cervical/ Endocervical HPV Reflex): Received cloudy specimen in ThinPrep via l. Test Performed by: [place] [address] Credentialing Analyst: Gerardo rodriguez III, M.D. Specimen (Source) Anatomical Collection Method Collection Time Re ceived Time Location / / Volume Laterality Cervix/Endocervix 12/25/2012 8:51 AM CDT Megan Miller N.P. LAB PAP PATHDX ORDERABLES Performing Organization Address City/State/ZIP Code Phon e Number POWERCHART documented in this encounter Visit Diagnoses Not on filedocumented in this encounter
--- OUTSIDE RECORDS SUMMARY | 2021-11-21 03:05 | XMS_ITS | Encounter Summary ---
:1990 Author Organization [facility] Address [address] [place] [address] Care Team Providers Name Role Phone Gabrielle Jara M.D. Primary Care Provider Encounter Details Date Type Department Care Team Description 03/25/2014 Hospital Encounter HX [facility] ME Raj Miller, N.P. [address] [place] [phone] (Wo rk) Social History Tobacco Use Types Packs/Day Years Used Date Smoking Tobacco: Never Assessed Sex Assigned at Date Recorded Not on file documented as of this encounter Last Filed Vital Signs Vital Sign Reading Time Taken Comments Blood Pressure 110/61 03/25/2014 11:36 AM ROLL FORMER Pulse 80 03/25/2014 11:36 AM ROLL FORMER Temperature - - Respiratory Rate 18 03/25/2014 11:36 AM ROLL FORMER Oxygen Saturation - - Inhaled Oxygen Concentration - - Weight - - Height 180 cm (5' 10.87) 03/25/2014 11:36 AM ROLL FORMER Body Mass Index - - documented in this encounter Progress Notes Megan Miller, N.P. - 03/25/2014 11:25 AM CST [id number] CHIEF COMPLAINT/REASON FOR VISIT Followup from emergency room visit. HISTORY OF PRESENT ILLNESS Miranda is a 23-year-old female who is here today for followup from her recent emergency room visit. She has seen on the 23 of March. She reports that she was being sexually active with her partner at home when she developed a very intense severe pain in her vaginal area. She notes that they were able to complete their intercourse but eventually came to the emergency room because she was in quite a lot of pain. She saw Dr. Schneider in the emergency room and had an evaluation done including lab work and exam. At that time she did have a slight amount of clue cells on her wet prep and was started on metronidazole for treatment of bacterial vaginosis. Additional workup in the emergency room included a negative test. Miranda reports they have been trying to get and she has not been on any form of control since October 2013. She notes that her pain has gotten some better since heremergency room visit, but she generally just feels somewhat sore and kind of bloated in her lower abdomen. She did have an ultrasound prior to her visit today for further investigation. She reports herlast menstrual cycle was the 03 of March. She states that it has also been a little bit more difficult to urinate. She denies any vaginal discharge. She has had the same partner for the last 4 years and denies any possible exposure to STDs. Miranda also denies any problems with diarrhea or constipation. Last bowel movement was today. Miranda also reports chronic congestion in her left ear. She has previously been referred to ENT afterpursuing this followup. She reports her left ear is typically worse than the right and a long history of ear problems. MEDICATIONS Reviewed. New prescription is for [place] 5/325, 1 to 2 tabs every 6 hours as needed for pain #30 withno refills. ALLERGIES No known drug allergies. PAST MEDICAL/SURGICAL HISTORY Reviewed and unchanged. Please see EMR. VITAL SIGNS Temp 36, pulse 80, respirations 18, blood pressure 110/61. PHYSICAL EXAMINATION GENERAL: Miranda is alert, oriented x3. Appears in no acute distress. HEART: Rate is regular. S1, S2 is present. No murmur or rub. LUNGS: Clear to auscultation. ABDOMEN: Soft, nondistended. Bowel sounds are present x4 and normoactive. HEENT: Right TM is shiny, gay, intact, with no erythema or effusion present. Left TM is cloudy. DIAGNOSTICS Urinalysis is negative. Ultrasound of the pelvis was reviewed, which showed no significant findings. No ovarian cyst. IMPRESSION/REPORT/PLAN 1. Vaginal pain. 2. Eustachian tube dysfunction. PLAN: 1. In regard to her vaginal pain, I reassured her at this time with all of her tests being negative that was reassuring for any kind of concerning pathology. We discussed that perhaps with the sexual activity her uterus could have moved or been somewhat displaced. I did suggest that I would be happy to refer her to Sameera Chapman, my abdominal massage therapist for evaluation of this, and did facilitate this referral. We discussed that if she were to miss her menstrual cycle or the pain were to persist or would not resolve after pursuing this type of treatment she should return for further evaluation. 2. A referral is in place to ENT for further evaluation and management of her chronic eustachian tube dysfunction and sensation of fluid in her left ear. Ready to learn. No apparent learning barriers were identified. Learning preferences include listening. Explained diagnosis and treatment plan. Patient/Child/Caregiver expressed understanding of the content. Eladia Belcher/rene Electronically Signed By: MEGAN MILLER NP On: 04/11/2014 05:18 PM Source: [facility] MHSDOLBEYNONRADSYS Document Id: [id number] FORMER documented in this encounter Miscellaneous Notes Miscellaneous - Mg Torres RDeepali - 03/25/2014 5:25 PM CST *General Message Document Contains Addenda Addendum by MEGAN MILLER NP on 28 March 2014 08:15:58 ROLL FORMER Message noted. From: MG TORRES RN To: MEGAN MILLER NP; MG TORRES RN; Sent: 03/25/2014 17:25:33 ROLL FORMER Subject: *General Message Pt called, LM that she had a question, called back Number and LM to call nurse or call ER if ergentquestion Source: [facility] POWERCHART Document Id: [id number] Electronically signed by [facility] Boot Lace Cutter Machine [id number] at 09/10/2016 7:47 PM CDT Miscellaneous - Kaylee Mazariegos L.P.NPedro - 03/25/2014 11:42 AM CST Meaningful Use Influenza Exclusion Meaningful Use Influenza Exclusion Entered On: 03/25/2014 11:42 ROLL FORMER Performed On: 03/25/2014 11:42 ROLL FORMER by KAYLEE MAZARIEGOS LPN Influenza Vaccine Exclusion Influenza Vaccine Exclusion : Patient declined KAYLEE MAZARIEGOS LPN - 03/25/2014 11:42 ROLL FORMER Source: [facility] POWERCHART Document Id: [id number] ROLL FORMER!3 FORMER Miscellaneous - Kaylee Mazariegos, L.P.N. - 03/25/2014 11:41 AM CST Health Assessment Health Assessment Entered On: 03/25/2014 11:42 ROLL FORMER Performed On: 03/25/2014 11:41 ROLL FORMER by KAYLEE MAZARIEGOS LPN Health Assessment Complete Health Assessment Complete or Modified : Annual Health Assessment Annual Health Assessment Completed : Yes KAYLEE MAZARIEGOS LPN - 03/25/2014 11:41 ROLL FORMER Nutrition Nutrition Risk Factors by History Adult : None KAYLEE MAZARIEGOS LPN - 03/25/2014 11:41 ROLL FORMER Functional Current Daily Living Assistance : None KAYLEE MAZARIEGOS LPN - 03/25/2014 11:41 ROLL FORMER Dependent Habits Tobacco Use/Currently Using : Yes Exposure to Tobacco Smoke : Patient smokes Smoking Status : Light tobacco smoker KAYLEE MAZARIEGOS LPN - 03/25/2014 11:41 ROLL FORMER Tobacco Use Grid Type : Cigarettes Cigarette Use Packs/Day : 1 KAYLEE MAZARIEGOS LPN - 03/25/2014 11:41 ROLL FORMER Caffeine Use Grid Caffeine Use : None KAYLEE MAZARIEGOS LPN - 03/25/2014 11:41 ROLL FORMER Recreational Drug Use Grid Drug Use : None KAYLEE MAZARIEGOS LPN - 03/25/2014 11:41 ROLL FORMER Psychosocial Domestic Abuse Concerns : None Faith Preference : No qualifying data available. KAYLEE MAZARIEGOS LPN - 03/25/2014 11:41 ROLL FORMER Advance Directive Advanced Directives : No Advance Directive Additional Information : No KAYLEE MAZARIEGOS LPN - 03/25/2014 11:41 ROLL FORMER Educ Needs Learning Style Preference Adult Grid Patient : None Family : None KAYLEE MAZARIEGOS LPN - 03/25/2014 11:41 ROLL FORMER Source: [facility] POWERCHART Document Id: [id number] ROLL FORMER!32 FORMER Miscellaneous - Kaylee Mazariegos LPedroP.N. - 03/25/2014 11:36 AM CST Adult [address]ensing [address] Magistrate Intake/History Adult Licensing Court Magistrate Intake/History Entered On: 03/25/2014 11:39 ROLL FORMER Performed On: 03/25/2014 11:36 ROLL FORMER by KAYLEE MAZARIEGOS LPN Intake Systolic Blood Pressure : 110 mmHg Diastolic Blood Pressure : 61 mmHg NIBP Mean : 77 mmHg Weight Source : Other: no wt taken KAYLEE MAZARIEGOS LPN - 03/25/2014 11:40 ROLL FORMER Chief Complaint : f/u Temperature Core : 36 DegC(Converted to: 96.8 DegF) (LOW) Peripheral Pulse Rate : 80 /min Respiratory Rate : 18 /min Heart Rhythm : Regular BP Location : Left upper extremity Blood Pressure Cuff Size : Large SpO2 : 100 % Oxygen Therapy : Room air Height : 180 cm(Converted to: 5 ft 11 inch(es), 71 inch(es)) KAYLEE MAZARIEGOS LPN - 03/25/2014 11:36 ROLL FORMER General Info Languages : Cameroonian Is Patient Female and 13-50 no hysterectomy : Yes Status : Patient denies Are you ? : No KAYLEE MAZARIEGOS LPN - 03/25/2014 11:36 ROLL FORMER Subjective Pain Symptoms : Yes KAYLEE MAZARIEGOS LPN - 03/25/2014 11:36 ROLL FORMER Pain Pain Assessment Grid Pain 1 Location : Abdomen (Comment: lower [KAYLEE MAZARIEGOS LPN - 03/25/2014 11:36 ROLL FORMER] ) Intensity : 5 KAYLEE MAZARIEGOS LPN - 03/25/2014 11:36 ROLL FORMER Dependent Habits Tobacco Use/Currently Using : Yes Exposure to Tobacco Smoke : Patient smokes Smoking Status : Light tobacco smoker KAYLEE MAZARIEGOS LPN - 03/25/2014 11:36 ROLL FORMER Tobacco Use Grid Type : Cigarettes Cigarette Use Packs/Day : 1 KAYLEE MAZARIEGOS LPN - 03/25/2014 11:36 ROLL FORMER Caffeine Use Grid Caffeine Use : None APRIL KAYLEE Rascon [facility] - 03/25/2014 11:36 ROLL FORMER Recreational Drug Use Grid Drug Use : None APRIL KAYLEE Rascon [facility] - 03/25/2014 11:36 ROLL FORMER ID Screen Drug Resistant Organism : No Travel Within Last 21 Days : No APRIL KAYLEE Rascon [facility] - 03/25/2014 11:36 ROLL FORMER Source: [facility] POWERCHART Document Id: [id number] ROLL FORMER!6 FORMER documented in this encounter Plan of Treatment Not on filedocumented as of this encounter Procedures Procedure Name Priority Date/Time Associated Diagnosis Comme nts URINALYSIS, ROUTINE Routine 03/25/2014 12:06 PM R esults for this ROLL FORMER procedure are i n the results section. documented in this encounter Results Urinalysis, Routine (03/25/2014 12:06 PM ROLL FORMER) [facility] gist Method Time Signature Source Clean Void POWERCHART Urine HXUr Color Yellow Colorless POWERCHART Clarity Clear Clear POWERCHART Glucose Negative Negative POWERCHART MGDL HXBILIRUBIN Negative Negative POWERCHART Ketones, QL(U) Negative Negative POWERCHART MGDL Specific 1.015 POWERCHART Roy, POCT, U pH, POCT, Urine 7.0 <5.0 POWERCHART Protein, Ur, Negative Negative POWERCHART Dip MGDL Urobilinogen 0.2 0.2 MGDL POWERCHART HXNITRITE Negative Negative POWERCHART HXBLOOD Negative Negative POWERCHART Leukocyte Negative Negative POWERCHART Esterase Specimen (Source) Anatomical Collection Method Collection Time Re ceived Time Location / / Volume Laterality Urine 03/25/2014 12:06 PM ROLL FORMER Megan Miller N.P. LAB URINE ORDERABLES Performing Organization Address City/State/ZIP Code Phon e Number POWERCHART documented in this encounter Visit Diagnoses Not on filedocumented in this encounter Care Teams Pipe Line Repairer Relationship Specialty Start Date End Date Gabrielle Jara M.D. PCP - General Family Medicine 10/04/[address] [place] [address] documented as of this encounter
--- OUTSIDE RECORDS SUMMARY | 2021-11-21 03:05 | XMS_ITS | Encounter Summary ---
:1990 Author Organization [facility] Address [address] [place] [address] Care Team Providers Name Role Phone Gabrielle Jara M.D. Primary Care Provider Encounter Details Date Type Department Care Team Description 09/08/2014 Hospital Encounter HX [facility]IV[facility] OP Mckenzie Valiente M.D. OB [address] [place] [phone] (Wo rk) Social History Tobacco Use Types Packs/Day Years Used Date Smoking Tobacco: Never Assessed Sex Assigned at Date Recorded Not on file documented as of this encounter Plan of Treatment Not on filedocumented as of this encounter Visit Diagnoses Not on filedocumented in this encounter Care Teams Tack Puller Relationship Specialty Start Date End Date Gabrielle Jara M.D. PCP - General Family Medicine 10/04/13 [address] [place] [phone] documented as of this encounter
--- OUTSIDE RECORDS SUMMARY | 2021-11-21 03:05 | XMS_ITS | Encounter Summary ---
:1990 Author Organization [facility] Address [address] [place] [address] Care Team Providers Name Role Phone Unavailable Primary Care Provider Unavailable Encounter Details Date Type Department Care Team Description 07/15/[address] [facility] Kristine Moody M.D. [address] [phone] (Wo rk) Social History Tobacco Use Types Packs/Day Years Used Date Smoking Tobacco: Never Assessed Sex Assigned at Date Recorded Not on file documented as of this encounter Last Filed Vital Signs Vital Sign Reading Time Taken Comments Blood Pressure 108/62 07/15/2012 1:23 PM CDT Pulse 92 07/15/2012 1:23 PM CDT Temperature - - Respiratory Rate - - Oxygen Saturation - - Inhaled Oxygen Concentration - - Weight 98.3 kg (216 lb 11.4 oz) 07/15/2012 1:23 PM CDT Height 179 cm (5' 10.47) 07/15/2012 1:23 PM CDT Body Mass Index 30.68 07/15/2012 1:23 PM CDT documented in this encounter Progress Notes Kristine Al M.D. - 07/15/2012 1:20 PM CDT [id number] CHIEF COMPLAINT/REASON FOR VISIT Ear pain. HISTORY OF PRESENT ILLNESS Cherry is a 22-year-old female who states that for the past 1 to 2 weeks her ears have felt plugged and have been sore but now the left one seems to be worsening. She has had no runny noseor sore throat. There has been no change in her hearing, drainage or fevers. She did try some Claritin and states that it helped for one day but things then recurred. She denies any watery eyes or sneezing. She does have a history of ear problems and has required tubes in the past. The last ear infection was in December 2011 and she was treated with Augmentin. She does note however that most times she has an ear infection she does not come in to be seen. CURRENT MEDICATIONS Reconciled. New medicine today is Zithromax 500 mg by mouth day 1 followed by 250 mg by mouth days 2through 5. ALLERGIES No known drug allergies. SYSTEMS REVIEW Review of systems as per history of present illness. VITAL SIGNS Temperature 36.2, pulse is 92 beats per minute, blood pressure is 108/62. Oxygen saturation is 98% on room air. Height is 179 cm. Weight is 98.3 kg. BMI is 30.6. PHYSICAL EXAMINATION GENERAL: The patient is alert and oriented and in no acute distress. HEENT: Right TM is clear without any obvious erythema or effusion. Left TM is erythematous with effusion. Nasal mucosa is unremarkable. Oral mucosa is moist. There is no oral pharyngeal erythema. NECK: Neck is supple. No lymphadenopathy. CARDIOVASCULAR EXAM: Regular rate and rhythm. Normal S1 and S2; no murmurs, rubs, or gallops. LUNGS: Clear to auscultation bilaterally. IMPRESSION/REPORT/PLAN Left otitis media. Patient is going to be treated with Zithromax. She also requests a referral onto ENT since she has been having more problems with her ears recently and I think this is reasonable. PATIENT EDUCATION: Ready to learn No apparent learning barriers were identified Learning preferences include listening Explained diagnosis and treatment plan Patient/Child/Caregiver expressed understanding of the content Kristine Rajput M.D./hong Electronically Signed By: KRISTINE WYNN MD On: 07/22/2012 02:22 PM Modified by and Electronically Signed by: KRISTINE WYNN MD On: 07/22/2012 02:21 PM Source: [facility] MHSDOLBEYNONRADSYS Document Id: [id number] documented in this encounter Miscellaneous Notes Miscellaneous - Kristine Al M.D. - 07/15/2012 1:42 PM CDT Ambulatory Patient Summary [facility] [address] [place] [place] [address] Visit Information Name: CHERRY CHEN [facility] Number: [id number] Current Date: 07/15/2012 13:42:47 Physicians Attending Provider: KRISTINE WYNN MD Primary Care Provider: SOFIE GARCIA NP Your Medications Here is a list of your medications. It is important to take your medications as directed. Use a pillbox or chart to help remind you to take your medications. Please let your doctor or nurse know if you have problems taking your medications. Medication/Strength Dose Route Frequency Indications/Special Instructions/Comments azithromycin (Zithromax 250 mg oral tablet) 2 tablets on day 1, then 1 tablet on days 2-5 Oral as directed for 5 Days tretinoin topical (tretinoin 0.1% topical gel) 1 carine Topical once a day (at bedtime) (wash hands before applying) etonogestrel (Implanon) 68 mg Subcutaneous once ibuprofen (ibuprofen 800 mg oral tablet) 800 mg Oral three times a day as needed for Pain Take with food adapalene topical (Differin 0.1% topical cream) 1 carine Topical once a day (at bedtime) Attention: If you have any medications at [...] No Appointments found Your Goals/Additional instructions: Source: [facility] POWERCHART Document Id: [id number] Miscellaneous - Kristine Al M.D. - 07/15/2012 1:42 PM CDT Ambulatory Depart Summary [facility] [address] [place] [address] Visit Information Name: CHERRY CHEN [facility] Number: [id number] Visit Date: 07/15/2012 13:42:46 Attending Provider: KRISTINE WYNN MD Primary Care Provider: SOFIE GARCIA NP CHERRY CHEN has been given the following list of medications: Your Medications It is important to take your medications as directed. Use a pill box or chart to help remind you to take your medications. Please let your doctor or nurse know if you have problems taking your medications. Medication/Strength Dose Route Frequency Indications/Special Instructions/Comments azithromycin (Zithromax 250 mg oral tablet) 2 tablets on day 1, then 1 tablet on days 2-5 Oral as directed for 5 Days tretinoin topical (tretinoin 0.1% topical gel) 1 carine Topical once a day (at bedtime) (wash hands before applying) etonogestrel (Implanon) 68 mg Subcutaneous once ibuprofen (ibuprofen 800 mg oral tablet) 800 mg Oral three times a day as needed for Pain Take with food adapalene topical (Differin 0.1% topical cream) 1 carine Topical once a day (at bedtime) Attention: If you have any medications at home that are not on this list, DO NOT take them until youcontact your provider for clarification. Additional Information: Source: [facility] POWERCHART Document Id: [id number] Deepthi - Nell Miller, L.P.N. - 07/15/2012 1:23 PM CDT Adult Speeder Operator Intake/History Adult Speeder Operator Intake/History Entered On: 07/15/2012 13:28 CDT Performed On: 07/15/2012 13:23 CDT by NELL MILLER LPN, RT Intake Chief Complaint : concerned about discomfort and plugged feeling in bilateral ears x 2 weeks. Temperature Core : 36.2DegC(Converted to: 97.2DegF) (LOW) Peripheral Pulse Rate : 92/min Systolic Blood Pressure : 108mmHg Diastolic Blood Pressure : 62mmHg NIBP Mean : 77mmHg BP Location : Right upper extremity Blood Pressure Cuff Size : Large SpO2 : 98% Oxygen Therapy : Room air Height : 179cm(Converted to: 5ft 10inch(es), 70.47inch(es)) Actual Weight : 98.3kg(Converted to: 216lb 11oz) Weight Source : Standing scale Dosing Weight Clinic : 98.30kg Clinic BSA : 2.21 Body Mass Index : 30.68kg/m2 KRISS MILLERTESFAYE Rascon LPN, RT - 07/15/2012 13:23 CDT General Info Information Given By : Patient Preferred Communication Mode : Verbal Languages : Georgian ROBERTKRISSTESFAYE Rascon LPN, RT - 07/15/2012 13:23 CDT Subjective Pain Symptoms : Yes ROBERT NELLTESFAYE Rascon LPN, RT - 07/15/2012 13:23 CDT Pain Pain Assessment Grid Pain 1 Location : Ear Laterality : Bilateral NELL MILLER Abiodun OLIVEIRA, RT - 07/15/2012 13:23 CDT Dependent Habits Tobacco Use/Currently Using : No Exposure to Tobacco Smoke : Patient smokes Smoking Status : Current every day smoker NELL MILLER Abiodun OLIVEIRA, RT - 07/15/2012 13:23 CDT Tobacco Use Grid Type : Cigarettes Cigarette Use Packs/Day : 0.5 NELL MILLER LPN, RT - 07/15/2012 13:23 CDT Caffeine Use Grid Caffeine Use : None NELL MILLER LPN, RT - 07/15/2012 13:23 CDT Recreational Drug Use Grid Drug Use : None NELL MILLER LPN, RT 07/15/2012 13:23 CDT Allergy Allergies (Active) NKA Estimated Onset Date: Unspecified ; Created By: SKIP SCHWARTZ LPN; Reaction Status: Active ; Category: Drug ; Substance: NKA ; Type: Allergy ; Updated By: SKIP SCHWARTZ LPN; Reviewed Date: 01/06/2012 11:44 CDT Source: [facility] POWERCHART Document Id: [id number] documented in this encounter Plan of Treatment Not on filedocumented as of this encounter Visit Diagnoses Not on filedocumented in this encounter
--- OUTSIDE RECORDS SUMMARY | 2021-11-21 03:05 | XMS_ITS | Encounter Summary ---
:1990 Author Organization [facility] Address [address] [place] [address] Care Team Providers Name Role Phone Unavailable Primary Care Provider Unavailable Encounter Details Date Type Department Care Team Description 01/09/2012 Hospital Encounter [facility] ENT Doug Mackenzie M.D. [address] [place], [place] [phone] (Wo rk) Social History Tobacco Use Types Packs/Day Years Used Date Smoking Tobacco: Never Assessed Sex Assigned at Date Recorded Not on file documented as of this encounter Progress Notes Doug Mackenzie M.D. - 01/09/2012 2:00 PM CDT [id number] CLINIC ENCOUNTER Cherry is a very pleasant 21-year-old who presents at the request of Tosha Flores NP. The patient is wondering if she would benefit from tubes in her ears. She has a history of left PE tube when she was a child and approximately age 15 or 16. Status post tonsillectomy (and likely adenoidectomy) at age 67 years old. CHIEF COMPLAINT: Left ear always feels plugged. Severity: Pretty plugged. Right is very mild, somewhat marginal. She can pop her ear by sniffing and this feels better, but she does it a lot and people get annoyed. If she sniffs her hearing actually seems to get a bit worse, but a pulsating noise resolves. If she yawns her hearing improves, but the pulsating and plugging are worse. Onset: Approximately April 2011. She feels her symptoms were similar when she was approximately [address] Salcedo put a left tube in which seemed to resolve her symptoms. Very infrequent brief left ear pain, but resolves with rubbing her ear. Denies hearing loss, tinnitus or vertigo. No sinonasal symptoms. NEW PATIENT QUESTIONNAIRE including System Review, Past Medical, Surgical, Family and Social History Reviewed. Please refer to scanned report. OBJECTIVE: General Appearance: NORMAL Otoscopic: Canals normal. TMs: LEFT-posteroinferior atrophic area which is slightly retracted. When she yawns this neutralizes. Fully extrudes on negative pressure pneumatoscopy. TM abutting the promontory around the annulus. Otherwise healthy middle ear space. Under binocular microscopy posteroinferior TM neutralizes with yawn, retracts with sniff. RIGHT-translucent, healthy and mobile. Intranasal: NORMAL Oral Cavity: NORMAL Oropharynx: NORMAL Nasopharynx/Hypopharynx: Not tolerated due to gag reflex. Larynx: NORMAL Neck: NORMAL Cervical Lymph Nodes: NORMAL Thyroid: Not palpably enlarged. Salivary Glands: NORMAL Voice: NORMAL ASSESSMENT: Left TM atelectasis, posteroinferior. PLAN: Requested audiogram given long history and subjective changes in hearing. She would like a tube today. She may, in fact, benefit from a tube, but I emphasized the risk of no improvement or even worsening of these symptoms. I discussed alternative options including no intervention or tympanoplasty to try and reinforce that atelectatic area. She would like to start with a tube. She is aware of the loss and water protection. She has worn an ear plug in the past showering and swimming and even a headband. The risks of discomfort or perforation discussed, drainage. She voiced understanding and agreement and would like to come back after her audiogram and have this placed and I suspect we will be able to proceed unless there are any other concerns on the hearing test. Dr. Kristine Mitchell and Tosha Flores's Darcy notes reviewed and appreciated. Doug Mackenzie M.D., [facility] MERYL/james cc: Tosha Flores NP [facility] in [address] [address] Source: [facility] Document Id: [id number] documented in this encounter Plan of Treatment Not on filedocumented as of this encounter Visit Diagnoses Not on filedocumented in this encounter
--- OUTSIDE RECORDS SUMMARY | 2021-11-21 03:05 | XMS_ITS | Encounter Summary ---
:1990 Author Organization [facility] Address [address] [place] [address] Care Team Providers Name Role Phone Gabrielle Jara M.D. Primary Care Provider Encounter Details Date Type Department Care Team Description 06/21/2014 Hospital Encounter HX [facility] Arnulfo Ledesma M.D. [address] [place], [place] [phone] (Wo rk) Social History Tobacco Use Types Packs/Day Years Used Date Smoking Tobacco: Never Assessed Sex Assigned at Date Recorded Not on file documented as of this encounter Last Filed Vital Signs Vital Sign Reading Time Taken Comments Blood Pressure 113/68 06/21/2014 3:53 PM CDT Pulse 79 06/21/2014 3:45 PM CDT Temperature - - Respiratory Rate - - Oxygen Saturation - - Inhaled Oxygen Concentration - - Weight 105 kg (232 lb 9.4 oz) 06/21/2014 3:45 PM CDT Height 179 cm (5' 10.47) 06/21/2014 3:53 PM CDT Body Mass Index 32.93 06/21/2014 3:45 PM CDT documented in this encounter Miscellaneous Notes Miscellaneous - Cecil Rain, R.N. - 06/24/2014 10:13 AM CDT Addendum by CECIL RAIN RETAIL CUSTOMER SERVICE REPRESENTATIVE on 24 June 2014 11:55 CDT Discussed with patient the results of her wet prep. Given continued symptoms, will try po clindamycin to treat BV. From: CECIL RAIN RETAIL CUSTOMER SERVICE REPRESENTATIVE Sent: 06/24/2014 10:13:26 CDT message left with patient to return my phone call. +clue cells. will try clindamycin po. Source: [facility] POWERCHART Document Id: [id number] Miscellaneous - Cecil Rain, R.N. - 06/21/2014 4:30 PM CDT Ambulatory Patient Summary [address] [id number] Visit Information Name: CHERRY CHEN [facility] Number: [id number] Current Date: 06/21/2014 16:30:34 Physicians Attending Provider: EMILIE SALGADO MD Primary Care Provider: PCP, CHERRY CLINTONY has been given the following list of [...] the Following Medications: Medication list as of 06-21-14 16:30 Attention: If you have any medications at [...] of emergency. Electronically Signed By: CECIL RAIN RETAIL CUSTOMER SERVICE REPRESENTATIVE Signed On:21-JUN-2014 16:30:30 Your Allergies & Intolerances Substance Reaction Symptoms Category Comments No Known Medication Allergies Drug NO KNOWN DRUG ALLERGIES Your Problem List Problem Status Onset Comments Left kidney infection Active 04/14/2003 10/24/10 function 12% date unknown Acne vulgaris Active 02/13/2011 Headache Active 2010 Tobacco use Active 2002 09/03/11 unknown date of dx Active 03/03/2014 Your Upcoming Appointments Date Time Location Provider 07/26/2014 15:30 [facility] Ultrasound [facility] RM 1 07/26/2014 16:15 [facility] VOLCANOLOGY TEACHER Cecil Rain NP Attention: Contact your local Clinic if further appointment detail needed. Your Goals/Additional instructions: Source: [facility] POWERCHART Document Id: [id number] Miscellaneous - Cecil Rain, R.N. - 06/21/2014 4:30 PM CDT Ambulatory Discharge Medication List [address] [id number] Visit Information Name: CHENCHERRY CHAND [facility] Number: [id number] Visit Date: 06/21/2014 16:30:32 Attending Provider: EMILIE SALGADO MD Primary Care Provider: PCP, BAKARI CHENCHERRY CHAND has been given the following list of [...] the Following Medications: Medication list as of 06-21-14 16:30 Attention: If you have any medications at [...] of emergency. Electronically Signed By: CECIL RAIN RETAIL CUSTOMER SERVICE REPRESENTATIVE Signed On:21-JUN-2014 16:30:30 Additional Information: Source: [facility] [employer] Document Id: [id number] Miscellaneous - Nell Miller L.P.N. - 06/21/2014 3:53 PM CDT Ambulatory Vitals Height Weight Ambulatory Vitals Height Weight Entered On: 06/21/2014 15:54 CDT Performed On: 06/21/2014 15:53 CDT by NELL MILLER LPN, RT Vitals/Ht/Wt Systolic Blood Pressure : 113 mmHg Diastolic Blood Pressure : 68 mmHg NIBP Mean : 83 mmHg BP Location : Left upper extremity Blood Pressure Cuff Size : Large Height : 179 cm(Converted to: 5 ft 10 inch(es), 70 inch(es)) NELL MILLER LPN, RT - 06/21/2014 15:53 CDT [facility] Document Id: [id number] CDT!8 Miscellaneous - Nell Miller L.P.N. - 06/21/2014 3:45 PM CDT Adult C.O.D. Clerk Intake/History Adult C.O.D. Clerk Intake/History Entered On: 06/21/2014 15:50 CDT Performed On: 06/21/2014 15:45 CDT by NELL MILLER LPN, RT Intake Chief Complaint : 16 week OB visit Ambulatory Intake Additional Information : concerned about swollen ankles Temperature Core : 37 DegC(Converted to: 98.6 DegF) Peripheral Pulse Rate : 79 /min Systolic Blood Pressure : 132 mmHg Diastolic Blood Pressure : 68 mmHg NIBP Mean : 89 mmHg BP Location : Left upper extremity Blood Pressure Cuff Size : Large Height : 179 cm(Converted to: 5 ft 10 inch(es), 70 inch(es)) Actual Weight : 105.5 kg(Converted to: 232 lb 9 oz) Weight Source : Standing scale Dosing Weight Clinic : 105.5 kg Clinic BSA : 2.29 Body Mass Index : 32.93 kg/m2 ROBERT NELL Rascon LPN, RT - 06/21/2014 15:45 CDT General Info Information Given By : Patient Preferred Communication Mode : Verbal Languages : Bolivian Is Patient Female and 13-50 no hysterectomy : No ROBERT NELL Rascon LPN, RT - 06/21/2014 15:45 CDT Subjective Pain Symptoms : No ROBERT NELL Rascon LPN, RT - 06/21/2014 15:45 CDT Dependent Habits Tobacco Use/Currently Using : No Exposure to Tobacco Smoke : Other: Former smoker: quit 03/2014 Smoking Status : Former smoker NELL MILLER LPN, - 06/21/2014 15:45 CDT Tobacco Use Grid Type : Cigarettes Last Use : 03/2014 NELL MILLER LPN, 06/21/2014 15:45 CDT Caffeine Use Grid Caffeine Use : None NELL MILLER LPN, RT - 06/21/2014 15:45 CDT Recreational Drug Use Grid Drug Use : None ROBERT NELL Rascon LPN, - 06/21/2014 15:45 CDT ID Screen Drug Resistant Organism : No Travel Within Last 21 Days : No Contact with someone with Ebola : No ROBERT NELL Rascon LPN, RT - 06/21/2014 15:45 CDT Source: [facility] POWERCHART Document Id: [id number] CDT!42 documented in this encounter Plan of Treatment Not on filedocumented as of this encounter Procedures Procedure Name Priority Date/Time Associated Comments Diagnosis WET PREP EXAM, Routine 06/21/2014 5:03 PM Results for this UROGENITAL CDT procedure are i n the results section. documented in this encounter Results (ABNORMAL) Wet Prep Exam, Urogenital (06/21/2014 5:03 PM CDT) [facility] Method Time Signature HXWet Prep (POSITIVE) POWERCHART HXFinal Trichomonas: POWERCHART None HXFinal Clue Cells: Few POWERCHART (0-10/hpf) HXFinal Yeast: None POWERCHART HXFinal Sperm: None POWERCHART HXFinal White Blood POWERCHART Cells mod HXFinal epithelial POWERCHART cells Many HXFinal many bacteria POWERCHART present Specimen (Source) Anatomical Collection Method Collection Time Re ceived Time Location / / Volume Laterality Vagina 06/21/2014 5:03 PM CDT Cecil Rain ELECTRICAL TECH, NP- LAB MICROBIOLOGY - GENERAL ORDERABLES Performing Organization Address City/State/ZIP Code Phon e Number POWERCHART documented in this encounter Visit Diagnoses Not on filedocumented in this encounter Care Teams Manager Security Relationship Specialty Start Date End Date Gabrielle Jara M.D. PCP - General Family Medicine 10/04/13 [address] [place] [phone] documented as of this encounter
--- OUTSIDE RECORDS SUMMARY | 2021-11-21 03:05 | XMS_ITS | Encounter Summary ---
:1990 Author Organization [facility] Address [address] [place] [address] Care Team Providers Name Role Phone Unavailable Primary Care Provider Unavailable Encounter Details Date Type Department Care Team Description 01/07/2013 Hospital Encounter HX NO MAPPING Nakul Martinez M.D. [address] [place] [phone] (Wo rk) Social History Tobacco Use Types Packs/Day Years Used Date Smoking Tobacco: Never Assessed Sex Assigned at Date Recorded Not on file documented as of this encounter Plan of Treatment Not on filedocumented as of this encounter Visit Diagnoses Not on filedocumented in this encounter
--- OUTSIDE RECORDS SUMMARY | 2021-11-21 03:05 | XMS_ITS | Encounter Summary ---
:1990 Author Organization [facility] Address [address] [place] [address] Care Team Providers Name Role Phone Gabrielle Jara M.D. Primary Care Provider Encounter Details Date Type Department Care Team Description 10/11/2014 Hospital Encounter HX [facility] [place]iodun [place] [address] Social History Tobacco Use Types Packs/Day Years Used Date Smoking Tobacco: Never Assessed Sex Assigned at Date Recorded Not on file documented as of this encounter Plan of Treatment Not on filedocumented as of this encounter Visit Diagnoses Not on filedocumented in this encounter Care Teams Supervisor Post Wave Relationship Specialty Start Date End Date Gabrielle Jara M.D. PCP - General Family Medicine 10/04/[address] [place] [phone] documented as of this encounter
--- OUTSIDE RECORDS SUMMARY | 2021-11-21 03:05 | XMS_ITS | Encounter Summary ---
:1990 Author Organization [facility] Address [address] [place] [address] Care Team Providers Name Role Phone Unavailable Primary Care Provider Unavailable Encounter Details Date Type Department Care Team Description 01/06/[address] [facility] Kristine Moody M.D. [address] [place] [phone] (Wo rk) Social History Tobacco Use Types Packs/Day Years Used Date Smoking Tobacco: Never Assessed Sex Assigned at Date Recorded Not on file documented as of this encounter Last Filed Vital Signs Vital Sign Reading Time Taken Comments Blood Pressure 110/70 01/06/2012 11:45 AM CDT Pulse 72 01/06/2012 11:45 AM CDT Temperature - - Respiratory Rate 16 01/06/2012 11:45 AM CDT Oxygen Saturation - - Inhaled Oxygen Concentration - - Weight 97.3 kg (214 lb 8.1 oz) 01/06/2012 11:45 AM CDT Height - - Body Mass Index 29.7 12/31/2011 8:45 AM CDT documented in this encounter H&P Notes Kristine Al M.D. - 01/06/2012 11:31 AM CDT [id number] CHIEF COMPLAINT/REASON FOR VISIT Bilaterally ear pain. HISTORY OF PRESENT ILLNESS Cherry is a 21-year-old female who reports a history of left-sided ear problems resulting in PE tubes x2 most recently removed in 2008. She states that recently her left ear has been feeling plugged for a long time but now her right ear is also bothering her. Her ears have been painful for the past four days. She denies any runny nose, stuffy nose, sore throat or cough. She has not had any fevers. She does have an appointment with ENT next week. CURRENT MEDICATIONS Reconciled. New medicine is Auralgan two drops both ears every two hours as needed and Augmentin 875mg by mouth twice daily x10 days. ALLERGIES No known drug allergies. SYSTEMS REVIEW As per history of present illness. VITAL SIGNS Temperature is 36.9. Pulse 72 beats per minute. Respiratory rate is 16 breaths per minute. Blood pressure is 110/70. Weight is 97.3 kg. PHYSICAL EXAMINATION GENERAL: The patient is alert and oriented in no acute distress. HEENT: Left tympanic membrane is mildly erythematous with definite effusion and bulging of the tympanic membrane with air bubbles behind it. Right tympanic membrane is also bulging with evidence of fluid but no erythema. There is no significant nasal ingestion. Oral mucosa is moist. NECK: Supple. No lymphadenopathy. CARDIOVASCULAR: Regular rate and rhythm. Normal S1 and S2. No murmurs, rubs or gallops. LUNGS: Clear to auscultation bilaterally. IMPRESSION/REPORT/PLAN Bilateral otitis serous with left otitis media. We discussed the infection on the left looks mild and patient may be able to get away with just using the Auralgan. However, if things are not improving with the Auralgan she can certainly start taking the Augmentin 875 mg twice daily for 10 days. She isto follow-up with ENT as scheduled. Patient Education Ready to learn No apparent learning barriers were identified Learning preferences include listening Explained diagnosis and treatment plan Patient/Child/Caregiver expressed understanding of the content Kristine Rajput M.D./[facility] Electronically Signed By: KRISTINE WYNN MD On: 01/16/2012 05:29 PM Source: [facility] MHSDOLBEYNMIGDALIASYS Document Id: [id number] documented in this encounter Miscellaneous Notes Miscellaneous - Kristine Al M.D. - 01/06/2012 12:00 PM CDT Ambulatory Patient Summary [phone] [place] [address] Visit Information Name: CHERRY CHEN Current Date: 01/06/2012 12:00:56 Physicians Attending Provider: KRISTINE WYNN MD Primary Care Provider: SOFIE GARCIA NP Your Medications Here is a list of your medications. It is important to take your medications as directed. Use a pillbox or chart to help remind you to take your medications. Please let your doctor or nurse know if you have problems taking your medications. Medication/Strength Dose Route Frequency Indications/Special Instructions/Comments acetic/antipyrine/benzocaine/polycos otic (Auralgan otic solution) 2 drop(s) Ears (Both) every 2 hours as needed for Pain amoxicillin-clavulanate (Augmentin 875 mg oral tablet) 1 tab(s) Oral two times a day for 10 Days nicotine (nicotine 7 mg/24 hr transdermal film, extended release) 1 patch(es) Topical once a day for14 Days (use 7mg/24 hour dose after weaning off from 14mg/24 dose) nicotine (nicotine 14 mg/24 hr transdermal film, extended release) 1 patch(es) Topical once a day for 14 Days (stop smoking after using patches for 3 days) tretinoin topical (tretinoin 0.1% topical gel) 1 [...] Upcoming Appointments Date Time Location Reason Provider 01/16/2012 12:30 [facility] eustachian tube dysfunction Gurdeep CHACKO, Doug Barroso Your Goals/Additional instructions: Source: [facility] POWERCHART Document Id: [id number] Miscellaneous - Kristine Al M.D. - 01/06/2012 12:00 PM CDT Ambulatory Depart Summary [phone] [place] [address] Visit Information Name: APRIL CHERRY KAY Visit Date: 01/06/2012 12:00:55 Attending Provider: KRISTINE WYNN MD Primary Care Provider: SOFIE GARCIA SNUFF BLENDER CHERRY CHEN has been given the following list of medications: Your Medications It is important to take your medications as directed. Use a pill box or chart to help remind you to take your medications. Please let your doctor or nurse know if you have problems taking your medications. Medication/Strength Dose Route Frequency Indications/Special Instructions/Comments acetic/antipyrine/benzocaine/polycos otic (Auralgan otic solution) 2 drop(s) Ears (Both) every 2 hours as needed for Pain amoxicillin-clavulanate (Augmentin 875 mg oral tablet) 1 tab(s) Oral two times a day for 10 Days nicotine (nicotine 7 mg/24 hr transdermal film, extended release) 1 patch(es) Topical once a day for14 Days (use 7mg/24 hour dose after weaning off from 14mg/24 dose) nicotine (nicotine 14 mg/24 hr transdermal film, extended release) 1 patch(es) Topical once a day for 14 Days (stop smoking after using patches for 3 days) tretinoin topical (tretinoin 0.1% topical gel) 1 [...] your provider for clarification. Additional Information: Source: [facility] POWERCHART Document Id: [id number] Miscellaneous - Lexy Mendoza LPedroPPedroNPedro - 01/06/2012 11:45 AM CDT Adult Wax Pot Tender Intake/History Adult Wax Pot Tender Intake/History Entered On: 01/06/2012 11:48 CDT Performed On: 01/06/2012 11:45 CDT by LEXY MENDOZA Intake Chief Complaint : bilateral ear pain and feel plugged Temperature Core : 36.9C(Converted to: 98.4DegF) Peripheral Pulse Rate : 72/min Respiratory Rate : 16/min Heart Rhythm : Regular Systolic Blood Pressure : 110mmHg Diastolic Blood Pressure : 70mmHg NIBP Mean : 83mmHg BP Location : Left upper extremity Blood Pressure Cuff Size : Regular Actual Weight : 97.3kg(Converted to: 214lb 8oz) Dosing Weight Clinic : 97.30kg LEXY MENDOZA - 01/06/2012 11:45 CDT Subjective Pain Symptoms : Yes LEXY MENDOZA 01/06/2012 11:45 CDT Pain Pain Assessment Grid Pain 1 Location : Ear Intensity : 6 LEXY MENDOZA 01/06/2012 11:45 CDT Dependent Habits Tobacco Use/Currently Using : No Tobacco Use/Advised to Quit : Yes Exposure to Tobacco Smoke : Patient smokes Smoking Status : Former smoker LEXY MENDOZA 01/06/2012 11:45 CDT Tobacco Use Grid Type : Cigarettes Cigarette Use Packs/Day : 0.5 Last Use : 12/31/11 LEXY MENDOZA 01/06/2012 11:45 CDT Caffeine Use Grid Caffeine Use : None LEXY MENDOZA 01/06/2012 11:45 CDT Recreational Drug Use Grid Drug Use : None LEXY MENDOZA 01/06/2012 11:45 CDT Allergy Allergies (Active) NKA Estimated Onset Date: Unspecified ; Created By: SKIP SCHWARTZ LPN; Reaction Status: Active ; Category: Drug ; Substance: NKA ; Type: Allergy ; Updated By: SKIP SCHWARTZ LPN; Reviewed Date: 01/06/2012 11:44 CDT Source: [facility] [employer] Document Id: [id number] documented in this encounter Plan of Treatment Not on filedocumented as of this encounter Visit Diagnoses Not on filedocumented in this encounter
--- OUTSIDE RECORDS SUMMARY | 2021-11-21 03:05 | XMS_ITS | Encounter Summary ---
:1990 Author Organization [facility] Address [address] [place] [address] Care Team Providers Name Role Phone Unavailable Primary Care Provider Unavailable Encounter Details Date Type Department Care Team Description 12/31/2012 Hospital [facility] EMEKAOUN Raj Miller, [address] [place] [phone] (Wo rk) Social History Tobacco Use Types Packs/Day Years Used Date Smoking Tobacco: Never Assessed Sex Assigned at Date Recorded Not on file documented as of this encounter Plan of Treatment Not on filedocumented as of this encounter Visit Diagnoses Not on filedocumented in this encounter
--- OUTSIDE RECORDS SUMMARY | 2021-11-21 03:05 | XMS_ITS | Encounter Summary ---
:1990 Author Organization [facility] Address [address] [place] [address] Care Team Providers Name Role Phone Gabrielle Jara M.D. Primary Care Provider Encounter Details Date Type Department Care Team Description 10/18/[address] [facility] Kristine Simon, Anatoliy AVINA, [facility]- [address] [place] [address] [phone] (Wo rk) Social History Tobacco Use Types Packs/Day Years Used Date Smoking Tobacco: Never Assessed Sex Assigned at Date Recorded Not on file documented as of this encounter Last Filed Vital Signs Vital Sign Reading Time Taken Comments Blood Pressure 113/67 10/18/2014 3:31 PM CDT Pulse 81 10/18/2014 3:31 PM CDT Temperature - - Respiratory Rate 16 10/18/2014 3:31 PM CDT Oxygen Saturation - - Inhaled Oxygen Concentration - - Weight 111 kg (244 lb 14.9 oz) 10/18/2014 3:31 PM CDT Height 179 cm (5' 10.47) 10/18/2014 3:31 PM CDT Body Mass Index 34.67 10/18/2014 3:31 PM CDT documented in this encounter Miscellaneous Notes Miscellaneous - Kristine Rain, R.N. - 10/18/2014 3:55 PM CDT Ambulatory Patient Summary [facility] [id number] [place] [address] [address] [place], [place] [id number] Visit Information Name: CHERRY HALL [facility] Number: [id number] Current Date: 10/18/2014 15:55:11 Physicians Attending Provider: KRISTINE RAIN NP Primary Care Provider: PCP, CHERRY EDMOND has [...] the Following Medications: Medication list as of 10-18-14 15:55 Attention: If you have any medications at [...] of emergency. Electronically Signed By: KRISTINE RAIN NP Signed On:18-OCT-2014 15:55:07 Your Allergies & Intolerances Substance Reaction Symptoms [...] if you dont have one. Go to [email or web address] and click on Create Your Account. Then, follow the directions to complete the online form. Youll be asked for your [facility] number which you can find at the top of this document. Your Goals/Additional instructions: Source: [facility] [employer] Document Id: [id number] Deepthi - Kristine Rain, RDeepali - 10/18/2014 3:55 PM CDT Ambulatory Discharge Medication List [address] [id number] Visit Information Name: CHERRY HALL [facility] Number: [id number] Visit Date: 10/18/2014 15:55:10 Attending Provider: KRISTINE RAIN MASH PREPARATORY OPERATOR Primary Care Provider: PCP, ELSEWHERE CHERRY HALL [...] the Following Medications: Medication list as of 10-18-14 15:55 Attention: If you have any medications at [...] of emergency. Electronically Signed By: KRISTINE RAIN MASH PREPARATORY OPERATOR Signed On:18-OCT-2014 15:55:07 Additional Information: Source: [facility] [employer] Document Id: [id number] Miscellaneous - Nedra Le L.P.N. - 10/18/2014 3:31 PM CDT Adult Compensation Analyst Intake/History Adult Compensation Analyst Intake/History Entered On: 10/18/2014 15:33 CDT Performed On: 10/18/2014 15:31 CDT by NEDRA LE LPN Intake Chief Complaint : 32wk OB visit. Temperature Core : 36.8 DegC(Converted to: 98.2 DegF) Peripheral Pulse Rate : 81 /min Respiratory Rate : 16 /min Systolic Blood Pressure : 113 mmHg Diastolic Blood Pressure : 67 mmHg NIBP Mean : 82 mmHg BP Location : Left upper extremity Blood Pressure Cuff Size : Large SpO2 : 98 % Oxygen Therapy : Room air Height : 179 cm(Converted to: 5 ft 10 inch(es), 70 inch(es)) Actual Weight : 111.1 kg(Converted to: 244 lb 15 oz) Weight Source : Standing scale Dosing Weight Clinic : 111.1 kg Clinic BSA : 2.35 Body Mass Index : 34.67 kg/m2 NEDRA LE [facility] - 10/18/2014 15:31 CDT General Info Information Given By : Patient Preferred Communication Mode : Verbal Languages : Tristanian Is Patient Female and 13-50 no hysterectomy : No NEDRA LE LPN - 10/18/2014 15:31 CDT Subjective Pain Symptoms : No NEDRA LE LPN - 10/18/2014 15:31 CDT Dependent Habits Tobacco Use/Currently Using : No Exposure to Tobacco Smoke : Other: Former smoker: quit 03/2014 Smoking Status : Former smoker NEDRA LE LPN - 10/18/2014 15:31 CDT Tobacco Use Grid Type : Cigarettes NEDRA LE LPN - 10/18/2014 15:31 CDT Alcohol Use : No NEDRA LE LPN - 10/18/2014 15:31 CDT Caffeine Use Grid Caffeine Use : None Type : Coffee Frequency : Daily Amount : 1 NEDRA LE LPN - 10/18/2014 15:31 CDT Recreational Drug Use Grid Drug Use : None NEDRA LE LPN - 10/18/2014 15:31 CDT [facility] Document Id: [id number] CDT!43 documented in this encounter Plan of Treatment Not on filedocumented as of this encounter Visit Diagnoses Not on filedocumented in this encounter Care Teams Insecticide Supervisor Relationship Specialty Start Date End Date Gabrielle Jara M.D. PCP - General Family Medicine 10/04/[address] [place] [address] documented as of this encounter
--- OUTSIDE RECORDS SUMMARY | 2021-11-21 03:05 | XMS_ITS | Encounter Summary ---
:1990 Author Organization [facility] Address [address] [place] [address] Care Team Providers Name Role Phone Unavailable Primary Care Provider Unavailable Encounter Details Date Type Department Care Team Description 01/06/2012 Hospital Encounter HX NO MAPPING Provider, Historical Social History Tobacco Use Types Packs/Day Years Used Date Smoking Tobacco: Never Assessed Sex Assigned at Date Recorded Not on file documented as of this encounter Plan of Treatment Not on filedocumented as of this encounter Visit Diagnoses Not on filedocumented in this encounter
--- OUTSIDE RECORDS SUMMARY | 2021-11-21 03:05 | XMS_ITS | Encounter Summary ---
:1990 Author Organization [facility] Address [address] [place] [address] Care Team Providers Name Role Phone Wilian Jara M.D. Primary Care Provider Encounter Details Date Type Department Care Team Description 10/27/2014 Hospital Encounter HX [facility] Kristine Simon A PRN, [facility]- [address] [place] [address] [phone] (Wo rk) Social History Tobacco Use Types Packs/Day Years Used Date Smoking Tobacco: Never Assessed Sex Assigned at Date Recorded Not on file documented as of this encounter Last Filed Vital Signs Vital Sign Reading Time Taken Comments Blood Pressure 120/62 10/27/2014 3:00 PM CDT Pulse - - Temperature - - Respiratory Rate - - Oxygen Saturation - - Inhaled Oxygen Concentration - - Weight 111 kg (244 lb 0.8 oz) 10/27/2014 3:00 PM CDT Height 179 cm (5' 10.47) 10/27/2014 3:00 PM CDT Body Mass Index 34.55 10/27/2014 3:00 PM CDT documented in this encounter Miscellaneous Notes Telephone Encounter - Conversion, Historical Provider Ser - 11/03/2014 12:51 PM CDT *Phone Message Document Contains Addenda Addendum by WILIAN FAUST RN on 04 November 2014 8:56 CDT Patient did not report to labor and delivery x 2 now after being triaged. Patient calling this morning stating she continues to have abdominal cramping in the front and having a pinch nerve in her back. Patient states she can't walk. This property underwriter did not speak to patient, was informed by Lotus Cortez CLOUD ENGAGEMENT PARTNER shellfish farming supervisor of symptoms. Patient scheduled this morning with Dr. Peter. Modified by and Electronically Signed by: WILIAN FAUST RN On: 11/04/2014 08:56 AM Addendum by WILIAN FAUST RN on 03 November 2014 14:12:39 CDT Called patient. she states she is 35 weeks and woke up with extreme low back pain. She states along with the back pain having lower abdominal cramping. She states they are both intermittent. She rates her back pain at 5-6-10, dullache. She denies any vaginal bleeding/dysuria. She states having an increase in mucous discharge that it thick and stringy like. She states baby is active and moving. She is unsure if she is donnie or not. Per Dr. Peter patient to report to labor and delivery now. Patient in agreement with plan. Labor and delivery notified. From: MICHAELA EDMOND ( Family Medicine Structural Steel Worker Apprentice) To: Obstetrics/Gynecology Nurse Line; Sent: 11/03/2014 12:51:27 CDT Subject: *Phone Message Caller is: ( X ) Patient ( ) Mother ( ) Father ( ) Spouse ( ) Daughter ( ) Son ( ) Pharmacy ( ) Other: Physician: OB Patient MRN #: Reason for Call: Symptoms Message: Patient is requesting to talk to nurse regarding back cramps and stomach pains, she is 35 weeks . She can be reached at [phone]. Advice/Action: Source used: ( ) Verbalizes understanding [...] back cell phone number ( ) Source: [facility] POWERCHART Document Id: [id number] Miscellaneous - Ezequiel Irvin L.PPedroN. - 10/27/2014 3:00 PM CDT Adult Performance Consultant Intake/History Adult Performance Consultant Intake/History Entered On: 10/27/2014 15:01 CDT Performed On: 10/27/2014 15:00 CDT by EZEQUIEL IRVIN LPN Intake Chief Complaint : ob check-? yeast infection LMP Date : 03/03/2014 Systolic Blood Pressure : 120 mmHg Diastolic Blood Pressure : 62 mmHg NIBP Mean : 81 mmHg Height : 179 cm(Converted to: 5 ft 10 inch(es), 70 inch(es)) Actual Weight : 110.7 kg(Converted to: 244 lb 1 oz) Dosing Weight Clinic : 110.7 kg Clinic BSA : 2.35 Body Mass Index : 34.55 kg/m2 EZEQUIEL IRVIN LPN - 10/27/2014 15:00 CDT General Info Information Given By : Patient Languages : Libyan Is Patient Female and 13-50 no hysterectomy : No EZEQUIEL IRVIN LPN - 10/27/2014 15:00 CDT Subjective Pain Symptoms : No EZEQUIEL IRVIN LPN - 10/27/2014 15:00 CDT Dependent Habits Tobacco Use/Currently Using : No Exposure to Tobacco Smoke : Other: Former smoker: quit 03/2014 Smoking Status : Former smoker EZEQUIEL IRVIN LPN - 10/27/2014 15:00 CDT Tobacco Use Grid Type : Cigarettes EZEQUIEL IRVIN LPN - 10/27/2014 15:00 CDT Caffeine Use Grid Caffeine Use : None Type : Coffee Frequency : Daily Amount : 1 EZEQUIEL IRVIN LPN - 10/27/2014 15:00 CDT Recreational Drug Use Grid Drug Use : None EZEQUIEL IRVIN LPN - 10/27/2014 15:00 CDT Source: [facility] POWERCHART Document Id: [id number] CDT!34 documented in this encounter Plan of Treatment Not on filedocumented as of this encounter Procedures Procedure Name Priority Date/Time Associated Comments Diagnosis WET PREP EXAM, Routine 10/27/2014 3:30 PM Results for this UROGENITAL CDT procedure are i n the results section. documented in this encounter Results (ABNORMAL) Wet Prep Exam, Urogenital (10/27/2014 3:30 PM CDT) P athologist Signature HXWet Prep (POSITIVE) POWERCHART HXFinal Trichomonas POWERCHART : None HXFinal Clue Cells: POWERCHART None HXFinal Yeast: Few POWERCHART (0-10/hpf) Specimen (Source) Anatomical Collection Method Collection Time Re ceived Time Location / / Volume Laterality Vagina 10/27/2014 3:30 PM CDT EVELIO Hernández APRN- LAB MICROBIOLOGY - GENERAL ORDERABLES Performing Organization Address City/State/ZIP Code Phon e Number POWERCHART documented in this encounter Visit Diagnoses Not on filedocumented in this encounter Care Teams Art Conservator Relationship Specialty Start Date End Date Wilian Jara M.D. PCP - General Family Medicine 10/04/[address] [place] [address] documented as of this encounter
--- OUTSIDE RECORDS SUMMARY | 2021-11-21 03:05 | XMS_ITS | Encounter Summary ---
:1990 Author Organization [facility] Address [address] [place] [address] Care Team Providers Name Role Phone Unavailable Primary Care Provider Unavailable Encounter Details Date Type Department Care Team Description 10/13/2012 Hospital Encounter HX [facility] ME Raj Miller, N.P. [address] [place] [phone] (Wo rk) Social History Tobacco Use Types Packs/Day Years Used Date Smoking Tobacco: Never Assessed Sex Assigned at Date Recorded Not on file documented as of this encounter Last Filed Vital Signs Vital Sign Reading Time Taken Comments Blood Pressure 118/70 10/13/2012 3:10 PM CDT Pulse 96 10/13/2012 3:10 PM CDT Temperature - - Respiratory Rate 18 10/13/2012 3:10 PM CDT Oxygen Saturation - - Inhaled Oxygen Concentration - - Weight 100 kg (220 lb 14.4 oz) 10/13/2012 3:10 PM CDT Height 180.5 cm (5' 11.06) 10/13/2012 3:10 PM CDT Body Mass Index 30.75 10/13/2012 3:10 PM CDT documented in this encounter Progress Notes Sofie Miller, N.P. - 10/13/2012 3:05 PM CDT [id number] CHIEF COMPLAINT/REASON FOR VISIT Ear pain, sore throat, and fever. HISTORY OF PRESENT ILLNESS Cherry is a 22-year-old female who is here today with complaints of not feeling well for the past2 weeks. She states her symptoms have included cough, pain in her left ear, sore throat that has happened in the last 2 to 3 days. She also notes a fever yesterday. She denies any abdominal complaints.Her cough has been productive. She has been using Amina as well as Claritin which usually will help with her ears symptoms when she has had them in the past but reports this has not been helpful. Rejiorts decreased hearing out of her left ear. CURRENT MEDICATIONS Reviewed. New prescription today is Augmentin 875/125, 1 tablet twice daily times 10 days. ALLERGIES No known drug allergies. PAST MEDICAL/SURGICAL HISTORY Reviewed and unchanged. Please see EMR. VITAL SIGNS Temperature 36.8, pulse 96, respirations 18, blood pressure 118/70, O2 sat 98% on room air. PHYSICAL EXAMINATION GENERAL: Cherry is alert and oriented times 3. She appears in no acute distress. HEENT: Head is normocephalic, atraumatic. Right TM is shiny gay intact with no erythema or effusionpresent. Left TM is moderately erythematous. I do appreciate a small what appears to purulent effusion present behind the TM. Landmarks are distorted. Nares are patent. Oropharynx is moderately erythematous. NECK: Neck is supple. No lymphadenopathy. HEART: Heart rate is regular. S1, S2 is present. No murmur or rub. LUNGS: Clear to auscultation. IMPRESSION/REPORT/PLAN 1. Otitis media with effusion. 2. Pharyngitis. PLAN: Discussed with Cherry that due to the length of her symptoms and lack of response to antihistamine use, I did opt to go ahead and treat her with a course of Augmentin. I also discussed her continuing the use of an antihistamine and decongestant for symptomatic relief. Fluids are encouraged aswell. She is to return to the clinic if her symptoms are not improving as anticipated. Cherry's questions have been addressed and she is agreeable to this plan of care. Patient Education Ready to learn No apparent learning barriers were identified Learning preferences include listening Explained diagnosis and treatment plan Patient/Child/Caregiver expressed understanding of the content Eladia Belcher/[facility] Electronically Signed By: SOFIE MILLER NP On: 10/24/2012 08:26 AM Source: [facility] MHSDOLBEYNONRADSYS Document Id: [id number] documented in this encounter Miscellaneous Notes Miscellaneous - Sofie Miller N.P. - 10/13/2012 3:41 PM CDT Ambulatory Depart Summary [address] [address] Visit Information Name: CHERRY CHEN [facility] Number: [id number] Visit Date: 10/13/2012 15:41:10 Attending Provider: SOFIE MILLER FORM TAMPING MACHINE OPERATOR Primary Care Provider: SOFIE MILLER FORM TAMPING MACHINE OPERATOR CHERRY CHEN has been given the following list of medications: Your Medications It is important to take your medications as directed. Use a pill box or chart to help remind you to take your medications. Please let your doctor or nurse know if you have problems taking your medications. Medication/Strength Dose Route Frequency Indications/Special Instructions/Comments/Notes amoxicillin-clavulanate (Augmentin 875 mg-125 mg oral tablet) 1 tab(s) Oral two times a day for 10 Days tretinoin topical (tretinoin 0.1% topical gel) [...] your provider for clarification. Additional Information: Source: [facility] POWERCHART Document Id: [id number] Miscellaneous - Sofie Miller N.P. - 10/13/2012 3:41 PM CDT Ambulatory Patient Summary [address] [place] [address] Visit Information Name: CHERRY CHEN [facility] Number: [id number] Current Date: 10/13/2012 15:41:11 Physicians Attending Provider: SOFIE MILLER NP Primary Care Provider: SOFIE MILLER NP Your Medications Here is a list of your medications. It is important to take your medications as directed. Use a pillbox or chart to help remind you to take your medications. Please let your doctor or nurse know if you have problems taking your medications. Medication/Strength Dose Route Frequency Indications/Special Instructions/Comments/Notes amoxicillin-clavulanate (Augmentin 875 mg-125 mg oral tablet) 1 tab(s) Oral two times a day for 10 Days tretinoin topical (tretinoin 0.1% topical gel) [...] No Appointments found Your Goals/Additional instructions: Source: [facility] POWERCHART Document Id: [id number] Miscellaneous - Nedra Le L.P.N. - 10/13/2012 3:10 PM CDT Adult Grinding Wheel Inspector Intake/History Adult Grinding Wheel Inspector Intake/History Entered On: 10/13/2012 15:15 CDT Performed On: 10/13/2012 15:10 CDT by NEDRA LE DIRECTOR OF GUIDANCE Intake Chief Complaint : Plugged ears x2wks. Coughing, sinus congestion, sore throat. Fever on Friday. Temperature Core : 36.8 DegC(Converted to: 98.2 DegF) Peripheral Pulse Rate : 96 /min Respiratory Rate : 18 /min Systolic Blood Pressure : 118 mmHg Diastolic Blood Pressure : 70 mmHg NIBP Mean : 86 mmHg BP Location : Right upper extremity Blood Pressure Cuff Size : Regular SpO2 : 98 % Oxygen Therapy : Room air Height : 180.5 cm(Converted to: 5 ft 11 inch(es), 71.06 inch(es)) Actual Weight : 100.2 kg(Converted to: 220 lb 14 oz) Weight Source : Standing scale Dosing Weight Clinic : 100.2 kg Clinic BSA : 2.24 Body Mass Index : 30.75 kg/m2 NEDRA LE LPN - 10/13/2012 15:10 CDT General Info Information Given By : Patient Preferred Communication Mode : Verbal Languages : Cymro NEDRA LE [facility] - 10/13/2012 15:10 CDT Subjective Pain Symptoms : No NEDRA LE LPN - 10/13/2012 15:10 CDT Dependent Habits Tobacco Use/Currently Using : No Exposure to Tobacco Smoke : Patient smokes Smoking Status : Former smoker NEDRA LE LPN - 10/13/2012 15:10 CDT Tobacco Use Grid Type : Cigarettes NEDRA LE DIRECTOR OF GUIDANCE - 10/13/2012 15:10 CDT Alcohol Use : Yes NEDRA LE LPN - 10/13/2012 15:10 CDT Caffeine Use Grid Caffeine Use : None NEDRA LE LPN - 10/13/2012 15:10 CDT Recreational Drug Use Grid Drug Use : None NEDRA LE DIRECTOR OF GUIDANCE - 10/13/2012 15:10 CDT Source: [employer] Document Id: [id number] CDT!39 Miscellaneous - Nedra Le L.P.N. - 10/13/2012 3:10 PM CDT Health Assessment Health Assessment Entered On: 10/13/2012 15:16 CDT Performed On: 10/13/2012 15:10 CDT by NEDRA LE LPN Health Assessment Complete Health Assessment Complete or Modified : Annual Health Assessment Annual Health Assessment Completed : Yes NEDRA LE LPN - 10/13/2012 15:10 CDT Nutrition Nutrition Risk Factors by History Adult : None NEDRA LE LPN 10/13/2012 15:10 CDT Functional Current Daily Living Assistance : None NEDRA LE LPN 10/13/2012 15:10 CDT Dependent Habits Tobacco Use/Currently Using : No Exposure to Tobacco Smoke : Patient smokes Smoking Status : Former smoker NEDRA LE LPN 10/13/2012 15:10 CDT Tobacco Use Grid Type : Cigarettes NEDRA LE LPN - 10/13/2012 15:10 CDT Alcohol Use : Yes NEDRA LE LPN 10/13/2012 15:10 CDT Caffeine Use Grid Caffeine Use : None NEDRA LE LPN 10/13/2012 15:10 CDT Recreational Drug Use Grid Drug Use : None NEDRA LE DIRECTOR OF GUIDANCE 10/13/2012 15:10 CDT AUDIT Tool How Often Do You Have A Drink : 2 to 4 times a month How Many Drinks in a Day When Drinking : 3 or 4 Six or More Drinks On One Occassion : Less than monthly Audit Phase 1 Score : 4 NEDRA LE LPN 10/13/2012 15:10 CDT Psychosocial Domestic Abuse Concerns : None NEDRA LE LPN 10/13/2012 15:10 CDT Advance Directive Advanced Directives : No NEDRA LE LPN 10/13/2012 15:10 CDT Educ Needs Learning Style Preference Adult Grid Patient : None Family : None NEDRA LE LPN - 10/13/2012 15:10 CDT Source: [facility] [employer]ART Document Id: [id number] CDT!35 documented in this encounter Plan of Treatment Not on filedocumented as of this encounter Visit Diagnoses Not on filedocumented in this encounter
--- OUTSIDE RECORDS SUMMARY | 2021-11-21 03:05 | XMS_ITS | Encounter Summary ---
:1990 Author Organization [facility] Address [address] [place] [address] Care Team Providers Name Role Phone Gabrielle Jara M.D. Primary Care Provider Encounter Details Date Type Department Care Team Description 05/02/2014 Hospital Encounter HX [facility] Kristine Hernandez, BUSINESS PRACTICES OFFICER, [facility]- [address] [place] [address] (Wo rk) Social History Tobacco [...] - - Height 180 cm (5' 10.87) 05/02/2014 3:18 PM DRUG DISCOVERY INFORMATICS SPECIALIST Body Mass Index - - documented in this encounter Miscellaneous Notes Miscellaneous - Conversion, Historical Provider Ser - 05/02/2014 11:59 PM DRUG DISCOVERY INFORMATICS SPECIALIST Coding Summary-Paper Based CODING DATE: 05/05/2014 FINAL [facility] STATUS: * Discharged to Home or Self Care PAYOR: MMSI ADMIT DX: V28.89 Other Specified Screening REASON FOR VISIT DX: V28.89 Other Specified Screening FINAL DX: PRINCIPAL: V28.89 Other Specified Screening SECONDARY: PROCEDURES DOCTOR NAME DATE NOTE: The code number assigned matches the documented diagnosis and / or procedure in the patient's chart. However, the narrative phrase printed from the coding software may appear abbreviated, or result in slightly different terminology. Coded By: CATHIE OSEGUERA Saved: 05/05/2014 03:10 pm Source: [facility] POWERCHART Document Id: [id number] documented in this encounter Plan of Treatment Not on filedocumented as of this encounter Visit Diagnoses Not on filedocumented in this encounter Care Teams Waste Disposal Attendant Relationship Specialty Start Date End Date Gabrielle Jara M.D. PCP - General Family Medicine 10/04/13 [address] [place] [address] documented as of this encounter
--- OUTSIDE RECORDS SUMMARY | 2021-11-21 03:05 | XMS_ITS | Encounter Summary ---
:1990 Author Organization [facility] Address [address] [place] [address] Care Team Providers Name Role Phone Gabrielle Jara M.D. Primary Care Provider Encounter Details Date Type Department Care Team Description 10/11/2014 Hospital Encounter HX [facility] Lexy Johns, NURS R.N. [address] [place] [phone] Social History Tobacco Use Types Packs/Day Years Used Date Smoking Tobacco: Never Assessed Sex Assigned at Date Recorded Not on file documented as of this encounter Plan of Treatment Not on filedocumented as of this encounter Visit Diagnoses Not on filedocumented in this encounter Care Teams Teaching Pastor Relationship Specialty Start Date End Date Gabrielle Jara M.D. PCP - General Family Medicine 10/04/[address] [place] [phone] documented as of this encounter
--- OUTSIDE RECORDS SUMMARY | 2021-11-21 03:05 | XMS_ITS | Encounter Summary ---
:1990 Author Organization [facility] Address [address] [place] [address] Care Team Providers Name Role Phone Gabrielle Jara M.D. Primary Care Provider Encounter Details Date Type Department Care Team Description 07/13/2014 Hospital Encounter HX NO MAPPING Thad Hernandez, AmyAJaelCPedro [address] [place], [place] [phone] (Wo rk) Social History Tobacco Use Types Packs/Day Years Used Date Smoking Tobacco: Never Assessed Sex Assigned at Date Recorded Not on file documented as of this encounter Last Filed Vital Signs Vital Sign Reading Time Taken Comments Blood Pressure 138/65 07/13/2014 8:12 PM CDT Pulse 77 07/13/2014 8:12 PM CDT Temperature - - Respiratory Rate - - Oxygen Saturation - - Inhaled Oxygen Concentration - - Weight - - Height 179 cm (5' 10.47) 07/13/2014 8:12 PM CDT Body Mass Index - - documented in this encounter Discharge Summaries Rubi Warren, L.P.N. - 07/13/2014 8:16 PM CDT ED Discharge Instructions [address] [address] Name: CHERRY CHEN Date of : 1990 12:00 AM Visit Date: 07/13/2014 6:07 PM [facility] Number: [id number] Address: [address] [place] [address], [address] [place] [phone] Primary Care Provider: PCP, ELSEWHERE IMPORTANT: [facility] in [place] would like to thank you for allowing us to assist you with your healthcare needs. The following includes patient education materials and information regarding your injury/illness. Diagnosis: Headache (GONZALEZ) NOS Follow-Up Instructions: With: Address: When: Follow up with primary care provider Within As Needed Comments: With: Address: When: ELSEWHERE PCP Within As Needed Comments: Your Upcoming Appointments: Date Time Location Provider 07/21/2014 14:30 [facility] Ultrasound [facility] US RM 1 07/21/2014 15:15 [facility] LAST MARKER Carlos CLIENT PROFESSIONAL, Cecil Cortez Patient Education Materials: [id number] HEADACHE [unspecified] The cause of your headache today is [...] brain hemorrhage, brain tumor, meningitis and encephalitis. HOME CARE: ?? If you were given pain medicine for this headache, do not drive yourself home. Arrange for a ride, instead. When you get home, try to sleep. You should feel much better when you wake up. ?? Apply heat to the back of [...] light can worsen this kind of headache. FOLLOW UP with your doctor if the headache is not better within the next 24 hours. If you have frequent headaches you should discuss a treatment plan with your primary care doctor. By being aware of the earliest signs of headache, and starting treatment right away, you may be able to stop the pain yourself. GET PROMPT MEDICAL ATTENTION if any of the following occur: ?? [...] leg or one side of the face Difficulty with speech or vision ?? [id number] [facility], [address] [place] [address]. All rights reserved. This information is not intended as a substitute for professional medical care. Always follow your healthcare professional's instructions. ED Tests and Procedures: Order Status Discharge Prescriptions & Home Medications: Medication/Strength Dose Route Frequency Indications/Special Instructions/Comments/Notes ondansetron (Zofran 4 mg oral tablet) 4 mg Oral every 8 hours as needed for Nausea multivitamin, ( Multivitamins oral tablet) 1 tab(s) Oral once a day Comment: Attention: If you have any medications at home that are not on this list, DO NOT take them until youcontact your provider for clarification. Give a copy of your medication list to your primary care provider. Update your medication list any time medications or doses are changed and carry your medication list at all times in case of emergency. Medication Reconciliation: Reconciliation is a process of identifying the most accurate list of all medications a patient is taking - including name, dosage, frequency, and route - and using this list to provide to the patient information about how to take those medications. CHERRY CHEN or krissee has reviewed the home medications you have listed with us. Review the following instructions: You have NOT received any prescriptions and you have told us you are not currently taking any home medications You have NOT received any prescriptions. You have been provided a discharge medications list and you may CONTINUE taking your medications as previously prescribed by your regular providers. You have received the listed prescriptions and BEGIN all listed prescriptions as directed. Since you have listed no home medications, please check with your family doctor if you are taking any other medications. You have received the listed prescriptions and BEGIN all listed prescriptions as directed. Youhave been provided a discharge medications list and you may CONTINUE all home medications as previously prescribed by your regular providers. You have received the listed prescriptions and BEGIN all listed prescriptions as directed. Youhave been provided a discharge medications list. The following CHANGES have been made to your medication list; Otherwise, CONTINUE all home medications as previously prescribed by your regular provider. IMPORTANT: We examined and treated you today on an emergency basis only. This was not a substitute for, or an effort to provide, complete medical care. In most cases, you must let your doctor check youagain. Tell your doctor about any new or lasting problems. We cannot recognize and treat all injuries or illnesses in one Emergency Department visit. If you had special tests, such as EKG's or X-rays, we will review them again within 24 hours. We will call you if there are any new suggestions. Please follow the instructions above carefully. If you are being transferred to another facility your followup plan of care will be determined by the receiving facility. If you are a patient that is being discharged from the Emergency Department after receiving narcotics or other medications that may impair your judgment you may be a risk to yourself or others if you operate a motor vehicle. We recommend that you arrange a ride home with a responsible democrat. APRIL Acharya NICOLETTE KAY , or responsible democrat have received this information and my questions have been answered. I have discussed any challenges I see with this plan with the nurse or physician. Patient Signature or Responsible Alliance Party/Relationship Date Time Provider Signature Date Time Medication Reconciliation: Reconciliation is a process of identifying the most accurate list of all medications a patient is taking - including name, dosage, frequency, and route - and using this list to provide to the patient information about how to take those medications. CHERRY CHEN or angela has reviewed the home medications you have listed with us. Review the following instructions: You have NOT received any prescriptions and you have told us you are not currently taking any home medications You have NOT received any prescriptions. You have been provided a discharge medications list and you may CONTINUE taking your medications as previously prescribed by your regular providers. You have received the listed prescriptions and BEGIN all listed prescriptions as directed. Since you have listed no home medications, please check with your family doctor if you are taking any other medications. You have received the listed prescriptions and BEGIN all listed prescriptions as directed. Youhave been provided a discharge medications list and you may CONTINUE all home medications as previously prescribed by your regular providers. You have received the listed prescriptions and BEGIN all listed prescriptions as directed. Youhave been provided a discharge medications list. The following CHANGES have been made to your medication list; Otherwise, CONTINUE all home medications as previously prescribed by your regular provider. IMPORTANT: We examined and treated you today on an emergency basis only. This was not a substitute for, or an effort to provide, complete medical care. In most cases, you must let your doctor check youagain. Tell your doctor about any new or lasting problems. We cannot recognize and treat all injuries or illnesses in one Emergency Department visit. If you had special tests, such as EKG's or X-rays, we will review them again within 24 hours. We will call you if there are any new suggestions. Please follow the instructions above carefully. If you are being transferred to another facility your followup plan of care will be determined by the receiving facility. If you are a patient that is being discharged from the Emergency Department after receiving narcotics or other medications that may impair your judgment you may be a risk to yourself or others if you operate a motor vehicle. We recommend that you arrange a ride home with a responsible democrat. APRIL Acharya NICOLETTE KAY , or responsible democrat have received this information and my questions have been answered. I have discussed any challenges I see with this plan with the nurse or physician. Patient Signature or Responsible Alliance Party/Relationship Date Time Provider Signature Date Time This document has images extracted. Please consider using [employer] for all your patient education needs. Source: [employer] Document Id: [id number] Rubi Warren L.P.N. - 07/13/2014 8:16 PM CDT ED Depart Summary [facility] Emergency Department Clinical Discharge Summary PERSON INFORMATION Name CHERRY CHEN Age 24 Years 1990 12:00 AM Sex Female Language Monegasque PCP PCP, ELSEWHERE Marital Status Single N [id number] Visit Id Visit Reason UC - Diarrhea; UC - Headache; headaches [facility] Type [facility] Outpatient Med Service Urgent Care Referred by Track Group [facility] ED Discharge 07/13/2014 8:16 PM Tracking Id [id number] Checkout 07/13/2014 8:16 PM Checkin 07/13/2014 6:07 PM Acuity 3 -Urgent Dispo Type * Discharged to Home or Self Care Arrival 07/13/2014 6:07 PM Reg Status Complete LOS 000 02:09 Address: [address] [place] [address], [address] [place] [phone] Comment: PROVIDER INFORMATION Provider Role Provider Contact Time STEPHIE ENRIQUEZ LPN ED Nurse 07/13/14 18:27 THAD HERNANDEZ PA-C ED Provider 07/13/14 19:05 DIAGNOSIS Headache (GONZALEZ) NOS Comment: PATIENT EDUCATION INFORMATION Instructions: HEADACHE, Unspecified Follow up: With: Address: When: Follow up with primary care provider Within As Needed Comments: With: Address: When: ELSEWHERE PCP Within As Needed Comments: Source: [employer] Document Id: [id number] documented in this encounter Progress Notes Thad Hernandez P.A.-C. - 07/13/2014 6:07 PM CDT [id number] Patient is a 24-year-old female, 19 weeks' , presenting to Urgent Care today with a complaint of a headache that has been going on and off for the past 4 days. She did take some Tylenol yesterday and it did not help the headache. She did not take anything for the headache today. The headache is located across her forehead. The patient denies any history of headaches. However, upon chart review, it seems like she has been on Imitrex at some point 3 years ago for migraine headache. Patient does not remember. The headache is located across her forehead. She is having some nausea today. Denies any vomiting. She is also having some diarrhea today. Reports that she is able to keep fluids in, but however, she eats she will have some loose stools. Denies any blood in the diarrhea. Denies any vaginal bleeding. Denies any abnormal vaginal discharge. PHYSICAL EXAMINATION VITAL SIGNS: As noted. GENERAL APPEARANCE: A 24-year-old female in no acute distress. HEENT: Head is atraumatic. Eyes: Pupils are equal, round, reactive to light. Extraocular movements are normal. Ears: Tympanic membranes are clear bilaterally. Nasal passages: Moist and pink. Throat: Moist and pink. LUNGS: Clear to auscultation bilaterally. HEART: Chest with normal heart tones. S1, S2. ABDOMEN: Soft, nondistended. NEUROLOGICAL: Cranial nerves II to XII are grossly intact. IMPRESSION/REPORT/PLAN Headache, not otherwise specified. PLAN: Patient is given 2 tablets of Tylenol with codeine in Urgent Care today prior to departure. She did note that it helped the headache. Advised that she can take Tylenol if the headache comes back.Follow up with her LAST MARKER next week. Return sooner any worsening symptoms. She understands and agrees with the plan. She left in no acute distress. Patient declined taking Zofran in Urgent Care today for the nausea. Thad Hernandez P.A.-C./aos Electronically Signed By: THAD HERNANDEZ PA-C On: 07/14/2014 01:45 PM Modified by and Electronically Signed by: THAD HERNANDEZ PA-C On: 07/14/2014 12:18 PM Source: [facility] MHSDOLBEYNMANNIERADSYS Document Id: [id number] documented in this encounter H&P Notes Stephie Enriquez L.P.N. - 07/13/2014 6:27 PM CDT Urgent Care Intake Urgent Care Intake Entered On: 07/13/2014 18:30 CDT Performed On: 07/13/2014 18:27 CDT by STEPHIE ENRIQUEZ LPN Intake Chief Complaint : Headaches, diarrhea Onset of Symptoms : 4 days Ambulatory Intake Additional Information : 19 weeks Temperature Core : 37.1 DegC(Converted to: 98.8 DegF) Peripheral Pulse Rate : 76 /min Systolic Blood Pressure : 141 mmHg (HI) Diastolic Blood Pressure : 86 mmHg NIBP Mean : 104 mmHg BP Location : Right upper extremity SpO2 : 98 % Oxygen Therapy : Room air Height : 179 cm(Converted to: 5 ft 10 inch(es), 70 inch(es)) STEPHIE ENRIQUEZ LPN - 07/13/2014 18:27 CDT General Info Information Given By : Patient Languages : Monegasque Is Patient Female and 13-50 no hysterectomy : No STEPHIE ENRIQUEZ LPN - 07/13/2014 18:27 CDT Subjective Pain Symptoms : Yes STEPHIE ENRIQUEZ LPN - 07/13/2014 18:27 CDT Pain Scale Pain Scale Verbal 0-10 : Open STEPHIE ENRIQUEZ LPN - 07/13/2014 18:27 CDT Pain Pain Assessment Grid Pain 1 Location : Head Intensity : 5 STEPHIE ENRIQUEZ LPN - 07/13/2014 18:27 CDT Dependent Habits Tobacco Use/Currently Using : No Exposure to Tobacco Smoke : Other: Former smoker: quit 03/2014 Smoking Status : Former smoker STEPHIE ENRIQUEZ ROXANNE - 07/13/2014 18:27 CDT Tobacco Use Grid Type : Cigarettes Last Use : 03/2014 STEPHIE ENRIQUEZ ROXANNE - 07/13/2014 18:27 CDT Caffeine Use Grid Caffeine Use : None STEPHIE ENRIQUEZ ROXANNE - 07/13/2014 18:27 CDT Recreational Drug Use Grid Drug Use : None STEPHIE ENRIQUEZ ROXANNE - 07/13/2014 18:27 CDT ID Screen Drug Resistant Organism : No Travel Within Last 21 Days : No Contact with someone with Ebola : No STEPHIE ENRIQUEZ ROXANNE - 07/13/2014 18:27 CDT Nutrition Nutrition Risk Factors by History Adult : STEPHIE Harris ROXANNE - 07/13/2014 18:27 CDT Functional Current Daily Living Assistance : None STEPHIE ENRIQUEZ ROXANNE - 07/13/2014 18:27 CDT Psychosocial Domestic Abuse Concerns : None Behavioral Health Screen/Safety Assmt : No Christian Preference : No qualifying data available. STEPHIE ENRIQUEZ ROXANNE - 07/13/2014 18:27 CDT Advance Directive Advanced Directives : No Advance Directive Additional Information : No STEPHIE ENRIQUEZ ROXANNE - 07/13/2014 18:27 CDT Educ Needs Learning Style Preference Adult Grid Patient : None Family : None STEPHIE ENRIQUEZ ROXANNE - 07/13/2014 18:27 CDT Source: [employer] Document Id: [id number] CDT!60 documented in this encounter ED Notes Rubi Warren L.P.N. - 07/13/2014 8:16 PM CDT ED Disposition Summary ED Disposition Summary Entered On: 07/13/2014 20:16 CDT Performed On: 07/13/2014 20:16 CDT by RUBI WARREN LPN ED Disposition Summary Printed Discharge Instructions Given to Patient : Yes RUBI WARREN LPN - 07/13/2014 20:16 CDT Source: [facility] [employer] Document Id: [id number] CDT!3 Malachi Plunkett RDeepali - 07/13/2014 6:07 PM CDT ED Triage Assessment Document Has Been Updated ED Triage Assessment Entered On: 07/13/2014 18:11 CDT Performed On: 07/13/2014 18:07 CDT by MALACHI PLUNKETT RN Reason For Visit (As Of: 07/13/2014 18:11:11 CDT) Problems(Active) Acne vulgaris (ICD-9-CM :706.1 ) [...] Medical ; Code: 784.0 ; Contributor System: Carnival ; Last Updated: 06/11/2011 12:05 SPIRITUAL CARE COORDINATOR ; Life Cycle Date: 06/11/2011 ; Life Cycle Status: Active ; Responsible Provider: SOFIE GARCIA NP; Vocabulary: ICD-9-CM Left kidney infection (SNOMED CT :36362570 ) Name of Problem: Left kidney infection ; Onset Date: 2003 ; Recorder: SKIP SCHWARTZ LPN; Confirmation: Confirmed ; Classification: Medical ; Code: 20429350 ; Contributor System: IP Ghoster[employer] ; Last Updated: 01/18/2011 10:10 CDT ; Life Cycle Date: 10/24/2010 ; Life Cycle Status: Active ; Responsible Provider: SKIP SCHWARTZ LPN; Vocabulary: SNOMED CT; Comments: 10/24/2010 15:18 - SKIP SCHWARTZ LPN function 12% date unknown (SNOMED CT :375638722 ) Name of Problem: ; Onset Date: 03/03/2014 ; Recorder: MISTY ABEBE LPN; Confirmation: Confirmed ; Classification: Medical ; Code: 667845743 ; Last Updated: 05/03/2014 15:57 SPIRITUAL CARE COORDINATOR ; Life Cycle Status: Active ; Responsible Provider: MISTY ABEBE LPN; Vocabulary: SNOMED CT Tobacco use (ICD-9-CM :305.1 ) Name of Problem: Tobacco use ; Onset Date: 2002 ; Recorder: CECIL WYNN MD; Confirmation: Confirmed ; Classification: Medical ; Code: 305.1 ; Contributor System: Carnival ; Last Updated: 12/31/2011 8:58 CDT ; Life Cycle Date: 06/20/2011 ; Life Cycle Status: Active ; Responsible Provider: CECIL WYNN MD; Vocabulary: ICD-9-CM ; Comments: 09/03/2011 9:47 - VELASCO, MICHELLE Cortez LPN unknown date of dx Diagnoses(Active) UC - Diarrhea Date: 07/13/2014 ; Diagnosis Type: Reason For Visit ; Confirmation: Complaint of ; Clinical Dx: UC - Diarrhea ; Classification: Medical ; Clinical Service: Emergency medicine ; Code: PNED; Probability: 0 ; Diagnosis Code: [id number] UC - Headache Date: 07/13/2014 ; Diagnosis Type: Reason For Visit ; Confirmation: Complaint of ; Clinical Dx: UC - Headache ; Classification: Medical ; Clinical Service: Emergency medicine ; Code: PNED; Probability: 0 ; Diagnosis Code: [id number] Triage Chief Complaint Description : 19 weeks . GONZALEZ and diarrhea for the past 4 days. Able to eat and drink without vomiting. Some cramping pains , but not always assciated with the diarrhea. Is 19 weeks . Information Given By : Patient Accompanied By : Alone Mode of Arrival ED : Private vehicle Track : Medical Languages : Monegasque Patient Informed of Triage Location : Urgent Care Treatments Prior to Arrival : None Are you ? : No Is Patient Female and 13-50 no hysterectomy : Yes Status : Confirmed positive MALACHI PLUNKETT RN - 07/13/2014 18:07 CDT Pain Assessment Pain Symptoms : Yes MALACHI PLUNKETT RN - 07/13/2014 18:07 CDT Pain Scale Pain Scale Verbal 0-10 : Open MALACHI PLUNKETT RN - 07/13/2014 18:07 CDT Pain Pain Assessment Grid Pain 1 Location : Head Laterality : Other: forehead Intensity : 5 Time Pattern : Constant Onset : Sudden Duration : 3 days MALACHI PLUNKETT RN - 07/13/2014 18:07 CDT ID Screen Drug Resistant Organism : No Travel Within Last 21 Days : No Contact with someone with Ebola : No MALACHI PLUNKETT RN - 07/13/2014 18:07 CDT Source: [employer] Document Id: [id number] CDT!30 documented in this encounter Plan of Treatment Not on filedocumented as of this encounter Visit Diagnoses Not on filedocumented in this encounter Care Teams Lead Software Engineer Relationship Specialty Start Date End Date Gabrielle Jara M.D. PCP - General Family Medicine 10/04/13 [address] [place] [address] documented as of this encounter
--- OUTSIDE RECORDS SUMMARY | 2021-11-21 03:05 | XMS_ITS | Encounter Summary ---
:1990 Author Organization [facility] Address [address] [place] [address] Care Team Providers Name Role Phone Gabrielle Jara M.D. Primary Care Provider Encounter Details Date Type Department Care Team Description 03/24/[address] [facility] Oscar Cadet M.D. [address] [place] [phone] (Wo rk) Social History Tobacco Use [...] - - Height 180 cm (5' 10.87) 03/24/2014 9:07 AM BRANCH MAKER Body Mass Index - - documented in this encounter Plan of Treatment Not on filedocumented as of this encounter Visit Diagnoses Not on filedocumented in this encounter Care Teams Plasterer Stucco Relationship Specialty Start Date End Date Gabrielle Jara M.D. PCP - General Family Medicine 10/04/13 [address] [place] [address] documented as of this encounter
--- OUTSIDE RECORDS SUMMARY | 2021-11-21 03:05 | XMS_ITS | Encounter Summary ---
:1990 Author Organization [facility] Address [address] [place] [address] Care Team Providers Name Role Phone Gabrielle Jara M.D. Primary Care Provider Encounter Details Date Type Department Care Team Description 10/03/2014 Hospital Encounter HX [facility] ME Alex Partida M.D. [address] [phone] (Wo rk) Social History Tobacco Use Types Packs/Day Years Used Date Smoking Tobacco: Never Assessed Sex Assigned at Date Recorded Not on file documented as of this encounter Last Filed Vital Signs Vital Sign Reading Time Taken Comments Blood Pressure 118/88 10/03/2014 2:41 PM CDT Pulse 102 10/03/2014 2:41 PM CDT Temperature - - Respiratory Rate 20 10/03/2014 2:41 PM CDT Oxygen Saturation - - Inhaled Oxygen Concentration - - Weight 110 kg (243 lb 6.2 oz) 10/03/2014 2:41 PM CDT Height 179 cm (5' 10.47) 10/03/2014 2:41 PM CDT Body Mass Index 34.46 10/03/2014 2:41 PM CDT documented in this encounter Progress Notes Alex Partida M.D. - 10/03/2014 2:13 PM CDT [id number] CHIEF COMPLAINT/REASON FOR VISIT Cough/shortness of breath. HISTORY OF PRESENT ILLNESS Patient is a 24-year-old white female, 30 weeks who is here reporting unusual and significant coughing. The patient reports that her symptoms began with runny nose, some conjunctivitis or light sensitivity and progressed rapidly to a repetitive cough leading to gagging and productive of greensputum. She notes no significant fever but has felt a general malaise. The patient reports no complications of at this point, bleeding or other problems associated with cough. PHYSICAL EXAMINATION HEENT: Ears are normal. The eyes show slight injection. Nose shows clear drainage with some posterior throat inflammation. NECK: Supple without adenopathy. CHEST: Reveals a terminal expiatory wheezes, otherwise no asymmetric signs or symptoms. Patient's pertussis immunization is current and updated for this . IMPRESSION/REPORT/PLAN The patient could possibly have a viral bronchitis. There is no evidence or asymmetry of significantpneumonia. However, a constellation of some light sensitivity, rhinorrhea associated with this type of coughing could be associated with mycoplasma. Erythromycin (Zithromax) is consider safe with this . I will give prescription. PLAN: Diagnostic: None further now. X-ray deferred due to . Therapeutic: Begin the Zithromax Z-Chas. See us if no improvement or any other problems occur. Alex Partida M.D./rene Electronically Signed By: ALEX PARTIDA MD On: 10/04/2014 11:58 AM Source: [facility] MHSDOLBEYNONRADSYS Document Id: [id number] documented in this encounter Miscellaneous Notes Miscellaneous - Nedra Le, L.P.N. 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 Onset of Symptoms : Symptoms started Friday. NEDRA LE LPN - 10/03/2014 14:41 CDT Ambulatory Intake Additional Information : Increased fatigue, chest tightness, Vomiting. Coughing upgreen phlem. Patient is 30wks . NEDRA LE LPN - 10/03/2014 14:45 CDT Temperature Core : 37.4 DegC(Converted to: 99.3 DegF) Peripheral Pulse Rate : 102 /min (HI) Respiratory Rate : 20 /min Systolic Blood Pressure : 118 mmHg Diastolic Blood Pressure : 88 mmHg NIBP Mean : 98 mmHg BP Location : Left upper extremity Blood Pressure Cuff Size : Large SpO2 : 98 % Oxygen Therapy : Room air Height : 179 cm(Converted to: 5 ft 10 inch(es), 70 inch(es)) Actual Weight : 110.4 kg(Converted to: 243 lb 6 oz) Weight Source : Standing scale Dosing Weight Clinic : 110.4 kg Clinic BSA : 2.34 Body Mass Index : 34.46 kg/m2 [facility] - 10/03/2014 14:41 CDT General Info Information Given By : Patient Preferred Communication Mode : Verbal Languages : Dominican Is Patient Female and 13-50 no hysterectomy : No [facility] - 10/03/2014 14:41 CDT Subjective Pain Symptoms : No [facility] - 10/03/2014 14:41 CDT Dependent Habits Tobacco Use/Currently Using : No Exposure to Tobacco Smoke : Other: Former smoker: quit 03/2014 Smoking Status : Former smoker [facility] - 10/03/2014 14:41 CDT Tobacco Use Grid Type : Cigarettes [facility] - 10/03/2014 14:41 CDT Alcohol Use : No [facility] - 10/03/2014 14:41 CDT Caffeine Use Grid Caffeine Use : None Type : Coffee Frequency : Daily Amount : 1 [facility] - 10/03/2014 14:41 CDT Recreational Drug Use Grid Drug Use : None [facility] - 10/03/2014 14:41 CDT [facility] Document Id: [id number] CDT!3 documented in this encounter Plan of Treatment Not on filedocumented as of this encounter Visit Diagnoses Not on filedocumented in this encounter Care Teams Utilization Manager Relationship Specialty Start Date End Date Horn, Gabrielle L, M.D. PCP - General Family Medicine 10/04/[address] [place] [address] documented as of this encounter
--- OUTSIDE RECORDS SUMMARY | 2021-11-21 03:05 | XMS_ITS | Encounter Summary ---
:1990 Author Organization [facility] Address [address] [place] [address] Care Team Providers Name Role Phone Gabrielle Jara M.D. Primary Care Provider Encounter Details Date Type Department Care Team Description 05/31/2014 Hospital Encounter HX [facility] Arnulfo Ledesma M.D. [address] [place] [phone] (Wo rk) Social History Tobacco Use Types Packs/Day Years Used Date Smoking Tobacco: Never Assessed Sex Assigned at Date Recorded Not on file documented as of this encounter Last Filed Vital Signs Vital Sign Reading Time Taken Comments Blood Pressure 119/64 05/31/2014 3:23 PM EEG TECH Pulse - - Temperature - - Respiratory Rate - - Oxygen Saturation - - Inhaled Oxygen Concentration - - Weight 103 kg (227 lb 8.2 oz) 05/31/2014 3:23 PM EEG TECH Height 179 cm (5' 10.47) 05/31/2014 3:23 PM EEG TECH Body Mass Index 32.21 05/31/2014 3:23 PM EEG TECH documented in this encounter Miscellaneous Notes Miscellaneous - Emilie Armendariz M.D. - 05/31/2014 3:43 PM CST Ambulatory Patient Summary [address] [facility] [place] [phone] Visit Information Name: CHERRY CHEN [facility] Number: [id number] Current Date: 05/31/2014 15:43:46 Physicians Attending Provider: EMILIE ARMENDARIZ MD Primary Care Provider: PCP, CHERRY CLINTONY [...] the Following Medications: Medication list as of 05-31-14 15:43 Attention: If you have any medications at [...] Electronically Signed By: EMILIE ARMENDARIZ MD Signed On:31-MAY-2014 15:43:42 Your Allergies & Intolerances Substance Reaction Symptoms Category Comments No Known Medication Allergies Drug NO KNOWN DRUG ALLERGIES Your Problem List Problem Status Onset Comments Left kidney infection Active 04/14/2003 10/24/10 function 12% date unknown Acne vulgaris Active 02/13/2011 Headache Active 2010 Tobacco use Active 2002 09/03/11 unknown date of dx Active 03/03/2014 Your Upcoming Appointments Date Time Location Provider 06/28/2014 15:15 [facility] ELECTRONICS LEAD Emilie Armendariz MD 07/26/2014 15:30 [facility] Ultrasound [facility] US RM 1 07/26/2014 16:15 [facility] ELECTRONICS LEAD Carlos PARIKH, Kristine Cortez Attention: Contact your local Clinic if further appointment detail needed. Your Goals/Additional instructions: Source: [facility] POWERCHART Document Id: [id number] TECH Miscellaneous - Emilie Armendariz M.D. - 05/31/2014 3:43 PM CST Ambulatory Discharge Medication List [address] [place] [phone] Visit Information Name: CHERRY CHEN [facility] Number: [id number] Visit Date: 05/31/2014 15:43:45 Attending Provider: EMILIE ARMENDARIZ MD Primary Care Provider: PCP, BAKARI CHERRY CHEN [...] the Following Medications: Medication list as of 05-31-14 15:43 Attention: If you have any medications at [...] Electronically Signed By: EMILIE ARMENDARIZ MD Signed On:31-MAY-2014 15:43:42 Additional Information: Source: [facility] POWERCHART Document Id: [id number] TECH Miscellaneous - Michelle Andrew, L.P.N. - 05/31/2014 3:23 PM CST Adult Historical Guide Intake/History Adult Historical Guide Intake/History Entered On: 05/31/2014 15:24 EEG TECH Performed On: 05/31/2014 15:23 EEG TECH by ANDREW, HETTIE L MEDICAL OFFICE RECEPTIONIST Intake Chief Complaint : 12wk OB visit Systolic Blood Pressure : 119 mmHg Diastolic Blood Pressure : 64 mmHg NIBP Mean : 82 mmHg BP Location : Left upper extremity Blood Pressure Cuff Size : Large Height : 179 cm(Converted to: 5 ft 10 inch(es), 70 inch(es)) Actual Weight : 103.2 kg(Converted to: 227 lb 8 oz) Weight Source : Standing scale Dosing Weight Clinic : 103.2 kg Clinic BSA : 2.27 Body Mass Index : 32.21 kg/m2 MICHELLE ANDREW LPN - 05/31/2014 15:23 EEG TECH General Info Information Given By : Patient, Significant other Preferred Communication Mode : Verbal Languages : Moldovan Is Patient Female and 13-50 no hysterectomy : No MICHELLE ANDREW LPN - 05/31/2014 15:23 EEG TECH Subjective Pain Symptoms : No MICHELLE ANDREW LPN - 05/31/2014 15:23 EEG TECH Dependent Habits Tobacco Use/Currently Using : No Tobacco Use/Last 12 months : No Tobacco Use/Advised to Quit : No Exposure to Tobacco Smoke : Other: Former smoker: quit 03/2014 Smoking Status : Former smoker MICHELLE ANDREW LPN - 05/31/2014 15:23 EEG TECH Tobacco Use Grid Type : Cigarettes Last Use : 03/2014 MICHELLE ANDREW LPN - 05/31/2014 15:23 EEG TECH Alcohol Use : No MICHELLE ANDREW LPN - 05/31/2014 15:23 EEG TECH Caffeine Use Grid Caffeine Use : None MICHELLE ANDREW LPN - 05/31/2014 15:23 EEG TECH Recreational Drug Use Grid Drug Use : None MICHELLE ANDREW LPN - 05/31/2014 15:23 EEG TECH ID Screen Drug Resistant Organism : No Travel Within Last 21 Days : No MICHELLE ANDREW LPN - 05/31/2014 15:23 EEG TECH [facility] Document Id: [id number] EEG TECH!41 TECH documented in this encounter Plan of Treatment Not on filedocumented as of this encounter Procedures Procedure Name Priority Date/Time Associated Comments Diagnosis WET PREP EXAM, Routine 05/31/2014 3:45 PM Results for this UROGENITAL EEG TECH procedure are i n the results section. documented in this encounter Results (ABNORMAL) Wet Prep Exam, Urogenital (05/31/2014 3:45 PM EEG TECH) Analysis Performed At Patho logist Time Signature HXWet Prep (POSITIVE) POWERCHART HXFinal Trichomonas: POWERCHART Negative HXFinal Clue Cells: POWERCHART Few (0-10/hpf) HXFinal Yeast: POWERCHART Negative HXFinal Sperm: POWERCHART Negative HXFinal Few WBC's POWERCHART (0-5/hpf) Specimen (Source) Anatomical Collection Method Collection Time Re ceived Time Location / / Volume Laterality Vagina 05/31/2014 3:45 PM EEG TECH Emilie Armendariz M.D. LAB MICROBIOLOGY - GENERAL O RDERABLES Performing Organization Address City/State/ZIP Code Phon e Number POWERCHART documented in this encounter Visit Diagnoses Not on filedocumented in this encounter Care Teams Electric Vehicle Electrician Relationship Specialty Start Date End Date Gabrielle Jara M.D. PCP - General Family Medicine 10/04/13 [address] [place] [address] documented as of this encounter
--- OUTSIDE RECORDS SUMMARY | 2021-11-21 03:05 | XMS_ITS | Encounter Summary ---
:1990 Author Organization [facility] Address [address] [place] [address] Care Team Providers Name Role Phone Gabrielle Jara M.D. Primary Care Provider Encounter Details Date Type Department Care Team Description 03/23/2014 Hospital Encounter HX [facility] ED Viet Main M.D. [address] [place] [phone] (Wo rk) Social History Tobacco Use Types Packs/Day Years Used Date Smoking Tobacco: Never Assessed Sex Assigned at Date Recorded Not on file documented as of this encounter Last Filed Vital Signs Vital Sign Reading Time Taken Comments Blood Pressure 151/98 03/23/2014 9:14 PM [employer] Pulse 76 03/23/2014 9:14 PM [employer] Temperature - - Respiratory Rate 18 03/23/2014 9:14 PM [employer] Oxygen Saturation - - Inhaled Oxygen Concentration - - Weight - - Height 180 cm (5' 10.87) 03/23/2014 9:14 PM [employer] Body Mass Index - - documented in this encounter Discharge Summaries Erika Roldan R.N. - 03/23/2014 11:04 PM CST ED Depart Summary [facility] Emergency Department Clinical Discharge Summary PERSON INFORMATION Name CHERRY CHEN Age 23 Years 1990 12:00 AM Sex Female Language Hungarian PCP MEGAN GARCIA NP Marital Status Single Visit Id Visit Reason Vaginal pain; Abdominal pain Specialty Enc Type Emergency Med Service Emergency Medicine Referred by [facility] ED Discharge 03/23/2014 11:04 PM Tracking Id [id number] Checkout 03/23/2014 11:04 PM Checkin 03/23/2014 9:08 PM Acuity 4 -Less Urgent Dispo Type * Discharged to Home or Self Care Arrival 03/23/2014 9:08 PM Reg Status Complete LOS 000 01:56 Address: [address] [place] [phone] Comment: PROVIDER INFORMATION Provider Role Provider Contact Time ERIKA ROLDAN RN ED Nurse 03/23/14 21:14 GAEL MAIN MD ED Provider 03/23/14 21:47 DIAGNOSIS Pain Vagina; Vaginitis NOS Comment: PATIENT EDUCATION INFORMATION Instructions: PELVIC PAIN, Unknown Cause Follow up: With: Address: When: Pelvic ultrasound tomorrow. Within As Needed Comments: With: Address: When: MEGAN GARCIA [address] [place] [phone] Business (1) In 2 days 03/25/2014 Comments: Source: [facility] POWERCHART Document Id: [id number] [employer] Erika Roldan, R.N. - 03/23/2014 11:04 PM CST ED Discharge Instructions [address] [address] Name: CHERRY CHEN Date of : 1990 12:00 AM Visit Date: 03/23/2014 9:08 PM [facility] Number: [id number] Address: [address] [place] [phone] Primary Care Provider: MEGAN GARCIA NP IMPORTANT: in [place] would like to thank you for allowing us to assist you with your healthcare needs. The following includes patient education materials and informationregarding your injury/illness. Diagnosis: Pain Vagina; Vaginitis NOS Follow-Up Instructions: With: Address: When: Pelvic ultrasound tomorrow. Within As Needed Comments: With: Address: When: MEGAN GARCIA [address] [phone] Business (1) In 2 days 03/25/2014 Comments: Your Upcoming Appointments: Date Time Location Provider 03/24/2014 09:30 [facility] Ultrasound [facility] US Room 1 03/25/2014 11:45 [facility] Megan Godfrey Patient Education Materials: [id number] PELVIC PAIN, UNCERTAIN CAUSE Based on your visit today, the exact cause of your pelvic pain is not certain. But your condition does not appear to be serious at this time. However, the signs of a serious problem may take more time to appear. Therefore, it is important for you to watch for any new symptoms or worsening of your condition. HOME CARE: ?? Rest until you are feeling better. ?? Avoid sexual intercourse until your pain goes away. ?? You may use acetaminophen (Tylenol) or ibuprofen (Motrin, Advil) to control pain, unless another medicine was prescribed. [NOTE: If you have chronic liver or kidney disease or ever had a stomach ulcer or GI bleeding, talk with your doctor before using these medicines.] FOLLOW UP with your doctor as advised. If a culture test was taken, call in two days for the results. If the culture is positive, you will be given more advice at that time. Otherwise, follow-up with your doctor or this facility as instructed. GET PROMPT MEDICAL ATTENTION if any of the following occur: ?? Fever of 100.4??F (38??C) or higher, or as directed by your healthcare provider ?? Vaginal discharge ?? Worsening pain ?? Weakness, dizziness or fainting ?? Unexpected vaginal bleeding or passage of gay or white tissue from the vagina [id number] that moves to the right lower abdomen ?? [phone] [facility], [address] [place] [address], [place] [address]. All rights reserved. This information is not intended as a substitute for professional medical care. Always follow your healthcare professional's instructions. ED Tests and Procedures: Order Status Wet Prep Examination Completed Beta hCG Quantitative Canceled JASON Vaginal/Mouth Canceled Chlamydia Gonorrhoeae Amplified RNA-Tyler CGRNA Ordered Beta hCG Qualitative Urine Completed Discharge Prescriptions & Home Medications: Medication/Strength Dose Route Frequency Indications/Special Instructions/Comments/Notes metroNIDAZOLE (Flagyl 500 mg oral tablet) 500 mg Oral two times a day for 7 Days *antipyrine-benzocaine otic (antipyrine-benzocaine 54 mg-14 mg/mL otic solution) See Instructions Place in ear(s). As directed *ibuprofen (ibuprofen 800 mg oral tablet) 800 mg Oral every 8 hours as needed for Pain *tretinoin topical (tretinoin 0.1% topical gel) 1 carine Topical once a day (at bedtime) (wash hands before applying) *etonogestrel (Implanon) 68 mg Subcutaneous once *ibuprofen (ibuprofen 800 mg oral tablet) 800 mg Oral three times a day as needed for Pain Take withfood *adapalene topical (Differin 0.1% topical cream) 1 carine Topical once a day (at bedtime) * You have let us know that you are not taking this medication as listed. Please talk with your primary care provider or the health care provider who prescribed the medication as soon as possible. Comment: Attention: If you have any medications at home not on this list, DO NOT take them until you contact your provider for clarification. Give a copy [...] had special tests, such as EKG's or X- rays, we will review them again within 24 [...] arrange a ride home with a responsible libertarian. APRIL Acharya NICOLETTE KAY , or responsible libertarian have received this information and my questions have been answered. I have discussed any challenges I see with this plan with the nurse or physician. Patient Signature or Responsible Constitution Party/Relationship Date Time Provider Signature Date Time [...] had special tests, such as EKG's or X- rays, we will review them again within 24 [...] arrange a ride home with a responsible libertarian. APRIL Acharya NICOLETTE KAY , or responsible libertarian have received this information and my questions have been answered. I have discussed any challenges I see with this plan with the nurse or physician. Patient Signature or Responsible Constitution Party/Relationship Date Time Provider Signature Date Time This document has images extracted. Please consider using [employer] for all your patient education needs. Source: Jump [employer] It Document Id: [id number] [employer] documented in this encounter ED Notes Erika Roldan R.N. - 03/23/2014 10:17 PM CST ED Disposition Summary ED Disposition Summary Entered On: 03/23/2014 22:17 [employer] Performed On: 03/23/2014 22:17 [employer] by ERIKA ROLDAN RN ED Disposition Summary Accompanied By : Significant other Mode of Discharge : Ambulatory Transportation : Private vehicle Discharge From ED With : Home Med List Printed Discharge Instructions Given to Patient : Yes Patient Status at Discharge from ED : Improved ERIKA ROLDAN RN - 03/23/2014 22:17 [employer] Source: [employer] Document Id: [id number] [employer]!8 [employer] Erika Roldan R.N. - 03/23/2014 10:17 PM CST ED Pain Assessment ED Pain Assessment Entered On: 03/23/2014 22:17 [employer] Performed On: 03/23/2014 22:17 [employer] by ERIKA ROLDAN RN Pain Assessment Pain Symptoms : Yes ERIKA ROLDAN RN - 03/23/2014 22:17 [employer] Source: [employer] Document Id: [id number] [employer]!3 [employer] Gael Main M.D. - 03/23/2014 9:33 PM CST Vaginal pain Patient: CHERRY CHEN Age: 23 years Sex: Female : 1990 Author: GAEL MAIN MD Attachments: None Associated Diagnosis: Pain Vagina; Vaginitis NOS Basic Information Additional information: Chief Complaint from Nursing Triage Note : Chief Complaint Description 03/23/2014 21:19 [employer] Chief Complaint Description 23 year old female admitted to ER with vaginal painand discomfort during sex and after 03/23/2014 21:14 [employer] Chief Complaint Description 23 year old female admitted to ER with complaint oflower mid abdominal pain that started during intercourse and has gotten worse since. . History of Present Illness The patient presents with Pain started during the sexual intercourse and kept on getting worse even after the intercourse.. The onset was 1 hours ago. The course/duration of symptoms is constant and worsening. Location: Pelvis vagina. Radiating pain: none. The character of symptoms is sharp and stabbing. The degree of symptoms is severe, not heavy bleeding, not passing clots. Risk factors consist of none. Prior episodes: occasional and Patient states that she had symptoms of painful sexual intercourse before but never to this intensity.. Associated symptoms: denies fever, denies chills, denies nausea, denies vomiting, denies abdominal pain and denies dysuria. Review of Systems Gastrointestinal symptoms: No abdominal pain, no nausea, no vomiting or no diarrhea. Genitourinary symptoms: No dysuria, no hematuria, no vaginal bleeding or no vaginal discharge. Musculoskeletal symptoms: No back pain. Neurologic symptoms: No headache. Additional review of systems information: All other systems reviewed and otherwise negative. Health Status Allergies: Nonallergic Reactions (Selected) No Known Medication Allergies. Past Medical/ Family/ Social History Medical history: Active Left kidney infection (95031249): Onset in 2003 at 12 years. Comments: 10/24/2010 CDT 15:18 CDT - SKIP SCHWARTZ LPN function 12% date unknown. Surgical history: Mantoux test ([id number]) on 05/16/2011 at 21 Years. Comments: 05/16/2011 12:16 - EVARISTO MENDOZA mantoux placed mid left forearm at 12:00 Myringotomy ([id number]) in 2007 at 17 Years. Comments: 10/24/2010 15:17 - SKIP SCHWARTZ LPN [id number] Tonsillectomy ([id number]) in 1997 at 7 Years. TONSILLECTOMY - as a child on . PE TUBES - 2 sets, 1 in [place], 1 in [place] on .. Family history: Kidney stone Uncle [place] - Renal cancer Grandfather [place] - Cancer of prostate Grandfather . Social history: Drug use: Denies. Problem list: All Problems Tobacco use / 305.1 / Confirmed unknown date of dx Left kidney infection / 47686612 / Confirmed function 12% date unknown Acne vulgaris / 706.1 / Confirmed Headache / 784.0 / Confirmed. Physical Examination Vital Signs: Vital Signs 03/23/2014 21:14 [employer] Temperature Core 37.4 DegC Peripheral Pulse Rate 76 /min Respiratory Rate 18 /min SpO2 98 % Systolic Blood Pressure 151 mmHg HI Diastolic Blood Pressure 98 mmHg >HHI Mean Arterial Pressure 116 mmHg BP Location Left upper , Measurements 03/23/2014 21:14 [employer] Height 180 cm Height Source Stated Dosing Weight 95.00 kg NA Estimated Weight 95 kg , SpO2 03/23/2014 21:14 [employer] SpO2 98 % . General: Alert and no acute distress. Skin: Warm and moist. Head: Normocephalic and atraumatic. Neck: Supple. Eye: Pupils are equal, round and reactive to light, extraocular movements are intact, normal conjunctiva and vision unchanged. Ears, nose, mouth and throat: Tympanic membranes clear and oral mucosa moist. Cardiovascular: Regular rate and rhythm. Respiratory: Lungs are clear to auscultation. Gastrointestinal: Non distended. Genitourinary: External genitalia: Normal, Speculum exam: Appears normal, vaginal, no foreign body seen , no vaginal lesions noticed. and Bimanual exam: Cervix closed, adnexa, uterine, ovary, tenderness, Bilateral adnexa tenderness with the bimanual exam., No discharge noticed., no mass. Back: Nontender, Normal range of motion and Normal alignment. Musculoskeletal: Normal ROM. normal strength. no tenderness. Neurological: Alert and oriented to person, place, time, and situation, No focal neurological deficit observed, CN II-XII intact, normal sensory observed, normal motor observed and normal speech observed. Lymphatics: No lymphadenopathy. Psychiatric: Cooperative, appropriate mood & affect and normal judgment. Medical Decision Making Differential Diagnosis:Pelvic pain, vaginitis. OrdersLaunch Orders Laboratory: Beta hCG Quantitative (Order Processing): Stat, 03/23/2014 21:33 [employer], Once, Launch Orders Laboratory: JASON Vaginal/Mouth (Order Processing): Stat, 03/23/2014 21:34 [employer], Once, Vaginal, Launch Orders Laboratory: Chlamydia Gonorrhoeae Amplified RNA-Tyler CGRNA (Order Processing): Stat, 03/23/2014 21:34 [employer], Once,vaginal vaginal, Current Location, Launch Orders Laboratory: Beta hCG Qualitative Urine (Order Processing): Stat, 03/23/2014 21:36 [employer], Once, Launch Orders Pharmacy: Toradol (Order Processing): 60 mg, IM, Once. Results review:Lab results : Lab View 03/23/2014 22:10 [employer] Wet Prep POS 03/23/2014 21:38 [employer] U Beta-hCG Ql Negative , Interpretation positive for clue cells. Reexamination/ Reevaluation Course: unchanged. Pain status: unchanged. Assessment: exam unchanged. Impression and Plan Diagnosis Pain Vagina (Discharge, Emergency medicine, Medical) Vaginitis NOS (Discharge, Emergency medicine, Medical) Plan Condition: Stable. Disposition: Discharged: to home. Patient was given the following educational materials: PELVIC PAIN, Unknown Cause. Follow up with: Pelvic ultrasound tomorrow. Within As Needed; MEGAN GARCIA In 2 days 03/25/2014. Counseled: Patient, Regarding diagnosis, Regarding diagnostic results, Regarding treatment plan, Regarding prescription. Notes: Ultrasound of pelvis is scheduled for tomorrow.The patient is started on Metronidazole 500 mgtwice a day for 7 days for Bacterial vaginitis. , Follow up in clinic is recommended in 2 days.. Electronically Signed By: GAEL MAIN MD On: 03/23/2014 10:54 PM Modified by and Electronically Signed by: GAEL MAIN MD On: 03/23/2014 10:54 PM Source: [facility] POWERCHART Document Id: [id number]} [employer] Erika Roldan R.N. - 03/23/2014 9:19 PM CST ED Primary Assessment Document Has Been Updated ED Primary Assessment Entered On: 03/23/2014 21:20 [employer] Performed On: 03/23/2014 21:19 [employer] by ERIKA ROLDNA RN Reason For Visit (As Of: 03/23/2014 21:20:39 [employer]) Problems(Active) Acne vulgaris (ICD-9-CM :706.1 ) Name [...] Medical ; Code: 784.0 ; Contributor System: Alverix ; Last Updated: 06/11/2011 12:05 [employer] ; Life Cycle Date: 06/11/2011 ; Life Cycle Status: Active ; Responsible Provider: MEGAN GARCIA NP; Vocabulary: ICD-9-CM Left kidney infection (SNOMED CT :44297438 ) Name of Problem: Left kidney infection ; Onset Date: 2003 ; Recorder: SKIP SCHWARTZ LPN; Confirmation: Confirmed ; Classification: Medical ; Code: 54115660 ; Contributor System: PowerChart ; Last Updated: 01/18/2011 10:10 CDT ; Life Cycle Date: 10/24/2010 ; Life Cycle Status: Active ; Responsible Provider: SKIP SCHWARTZ LPN; Vocabulary: SNOMED CT; Comments: 10/24/2010 15:18 - SKIP SCHWARTZ LPN function 12% date unknown Tobacco use (ICD-9-CM :305.1 ) Name of Problem: Tobacco use ; Onset Date: 2002 ; Recorder: CECIL WYNN MD; Confirmation: Confirmed ; Classification: Medical ; Code: 305.1 ; Contributor System: PowerChart ; Last Updated: 12/31/2011 8:58 CDT ; Life Cycle Date: 06/20/2011 ; Life Cycle Status: Active ; Responsible Provider: CECIL WYNN MD; Vocabulary: ICD-9-CM ; Comments: 09/03/2011 9:47 MICHELLE BULLOCK LPN unknown date of dx Diagnoses(Active) Vaginal pain Date: 03/23/2014 ; Diagnosis Type: Reason For Visit ; Confirmation: Complaint of ; Clinical Dx: Vaginal pain ; Classification: Medical ; Clinical Service: Emergency medicine ; Code: PNED ;Probability: 0 ; Diagnosis Code: [id number] Triage Chief Complaint Description : 23 year old female admitted to ER with vaginal pain and discomfort during sex and after Mode of Arrival ED : Private vehicle Track : Medical Languages : Hungarian Treatments Prior to Arrival : None Are you ? : No Is Patient Female and 13-50 no hysterectomy : Yes Status : Possible unconfirmed ERIKA ROLDAN RN - 03/23/2014 21:19 [employer] Pain Assessment Pain Symptoms : Yes ERIKA ROLDAN RN - 03/23/2014 21:19 [employer] ID Screen Drug Resistant Organism : No Travel Within Last 21 Days : No ERIKA ROLDAN RN - 03/23/2014 21:19 [employer] Respiratory Airway : Patent Respirations : Unlabored Respiratory Pattern : Regular ERIKA ROLDAN RN - 03/23/2014 21:19 [employer] Cardiovascular Heart Rhythm : Regular Skin Color : Normal for ethnicity Skin Description : Dry Skin Temperature : Warm ERIKA ROLDAN RN - 03/23/2014 21:19 [employer] Neurological Last Well Time Known : Not applicable Level of Consciousness : Alert Orientation : Oriented x 3 Characteristics of Speech : Appropriate for age ERIKA ROLDAN RN - 03/23/2014 21:19 [employer] ED Psychosocial Affect/Behavior : Calm Domestic Abuse Concerns : None ERIKA ROLDAN RN - 03/23/2014 21:19 [employer] Gastrointestinal Nutrition ED : Adequate ERIKA ROLDAN RN - 03/23/2014 21:19 [employer] Musculoskeletal Fall Prevention Education Provided : NA ERIKA ROLDAN RN - 03/23/2014 21:19 [employer] Social Habits Tobacco Use/Currently Using : Yes Tobacco Use/Advised to Quit : Yes Exposure to Tobacco Smoke : Patient smokes Smoking Status : Current every day smoker ERIKA ROLDAN RN - 03/23/2014 21:19 [employer] Tobacco Use Grid Type : Cigarettes Cigarette Use Packs/Day : 1 ERIKA ROLDAN RN - 03/23/2014 21:19 [employer] Alcohol Use Grid Alcohol Use : Yes Type : Beer Frequency : Occasionally ERIKA ROLDAN RN - 03/23/2014 21:19 [employer]PERVISOR [employer]ARING Recreational Drug Use Grid Drug Use : None ERIKA ROLDAN RN - 03/23/2014 21:19 [employer]PERVISOR SHEARING Source: [facility] POWERCHART Document Id: [id number] SUPERVISOR [employer]ARING!53 [employer]ING Erika Roldan R.N. - 03/23/2014 9:14 PM CST ED Triage Assessment Document Has Been Updated ED Triage Assessment Entered On: 03/23/2014 21:18 [employer] Performed On: 03/23/2014 21:14 [employer]ARING by ERIKA ROLDAN RN Reason For Visit (As Of: 03/23/2014 21:19:01 [employer]PERVISOR SHEARING) Problems(Active) Acne vulgaris (ICD-9-CM :706.1 ) Name [...] Medical ; Code: 784.0 ; Contributor System: iSoftStoneChart ; Last Updated: 06/11/2011 12:05 [employer]ARING ; Life Cycle Date: 06/11/2011 ; Life Cycle Status: Active ; Responsible Provider: MEGAN GARCIA NP; Vocabulary: ICD-9-CM Left kidney infection (SNOMED CT :48772993 ) Name of Problem: Left kidney infection ; Onset Date: 2003 ; Recorder: SKIP SCHWARTZ LPN; Confirmation: Confirmed ; Classification: Medical ; Code: 03462665 ; Contributor System: iSoftStoneChart ; Last Updated: 01/18/2011 10:10 CDT ; Life Cycle Date: 10/24/2010 ; Life Cycle Status: Active ; Responsible Provider: SKIP SCHWARTZ LPN; Vocabulary: SNOMED CT; Comments: 10/24/2010 15:18 - SKIP SCHWARTZ LPN function 12% date unknown Tobacco use (ICD-9-CM :305.1 ) Name of Problem: Tobacco use ; Onset Date: 2002 ; Recorder: CECIL WYNN MD; Confirmation: Confirmed ; Classification: Medical ; Code: 305.1 ; Contributor System: [employer]Work in Field ; Last Updated: 12/31/2011 8:58 CDT ; Life Cycle Date: 06/20/2011 ; Life Cycle Status: Active ; Responsible Provider: CECIL WYNN MD; Vocabulary: ICD-9-CM ; Comments: 09/03/2011 9:47 - MICHELLE VELASCO LPN unknown date of dx Diagnoses(Active) Vaginal pain Date: 03/23/2014 ; Diagnosis Type: Reason For Visit ; Confirmation: Complaint of ; Clinical Dx: Vaginal pain ; Classification: Medical ; Clinical Service: Emergency medicine ; Code: PNED ;Probability: 0 ; Diagnosis Code: [id number] Triage Chief Complaint Description : 23 year old female admitted to ER with complaint of lower mid abdominal pain that started during intercourse and has gotten worse since. Information Given By : Patient Accompanied By : Significant other Mode of Arrival ED : Private vehicle Track : Medical Languages : Hungarian Vital Signs Assessed : Yes Treatments Prior to Arrival : None Are you ? : No Is Patient Female and 13-50 no hysterectomy : Yes Status : Possible unconfirmed ERIKA ROLDAN RN - 03/23/2014 21:14 [employer] Vital Signs Temperature Core : 37.4 DegC(Converted to: 99.3 DegF) Peripheral Pulse Rate : 76 /min Respiratory Rate : 18 /min Systolic Blood Pressure : 151 mmHg (HI) Diastolic Blood Pressure : 98 mmHg (>HHI) NIBP Mean : 116 mmHg BP Location : Left upper extremity SpO2 : 98 % Oxygen Therapy : Room air Height : 180 cm(Converted to: 5 ft 11 inch(es)) Height Source : Stated Estimated Weight : 95 kg Estimated Weight Conversion to Pounds : 209 lb ERIKA ROLDAN RN - 03/23/2014 21:14 [employer] Pain Assessment Pain Symptoms : Yes ERIKA ROLDAN RN - 03/23/2014 21:14 [employer]ARING Pain Pain Assessment Grid Pain 1 Location : Other: vaginal pain Laterality : Bilateral Intensity : 10 ERIKA ROLDAN RN - 03/23/2014 21:14 [employer]AR[employer] ED Physician Notification Time ED Physician Notification Time : 03/23/2014 21:18 [employer]ING ERIKA ROLDAN RN - 03/23/2014 21:14 [employer]PERVISOR SHEARING RAN RAN Level 1 : No RAN Level 2 : No RAN Level 3 : One ERIKA ROLDAN RN - 03/23/2014 21:14 SUPERVISOR SHEARING DCP GENERIC CODE Tracking Acuity : 4 -Less Urgent Tracking Group : [facility] ED ERIKA ROLDAN RN - 03/23/2014 21:14 [employer]ARING Allergy (As Of: 03/23/2014 21:19:01 SUPERVISOR SHEARING) Allergies (Active) No Known Medication Allergies Comments: Comment 1: NO KNOWN DRUG ALLERGIES ; Created By: Contributor_system, [employer]AL[employer]; Reaction Status: Active ; Category: Drug ; Substance: No Known Medication Allergies ; Type: Unknown ; Updated By: Contributor_system, [employer]AL[employer]; Reviewed Date: 03/23/2014 21:18 SUPERVISOR SHEARING ID Screen Drug Resistant Organism : No Travel Within Last 21 Days : No ERIKA ROLDAN RN - 03/23/2014 21:14 SUPERVISOR SHEARING [facility] Document Id: [id number] SUPERVISOR SHEARING!47 [employer]ING documented in this encounter Miscellaneous Notes Miscellaneous - Erika Roldan, R.N. - 03/23/2014 10:17 PM CST Valuables/Belongings Valuables/Belongings Entered On: 03/23/2014 22:17 [employer]ARING Performed On: 03/23/2014 22:17 [employer]PER[employer]OR [employer]ARING by ERIKA ROLDAN RN Valuables/Belongings Belongings Sent Home With : patient ERIKA ROLDAN RN - 03/23/2014 22:17 [employer]PERVISOR SHEARING [facility] Document Id: [id number] SUPERVISOR SHEARING!3 [employer]ING Miscellaneous - Erika Roldan R.N. - 03/23/2014 9:08 PM CST Facility Charge Ticket 2.0 11.0 DX Facility Charge Ticket 2.0 11.0 DX Entered On: 03/23/2014 22:17 [employer]ING Performed On: 03/23/2014 21:08 [employer]OR [employer]AR[employer] by ERIKA ROLDNA RN Facility Charge Ticket 2.0 11.0 DX ED Other Charges : Standard ED Encounter TVL Level Translated RTF : Vaginal pain TVL:3 TVL Level for Facility Charge Ticket : Level 3 Arrival Mode Calc : 1 Mode of Arrival ED : Private vehicle [place] Mode of Arrival Interpreted : Standard [facility] Process Management : None Order Management RTF : Laboratory Beta hCG Qualitative Urine,03/23/14 21:36,GAEL MAIN MD Completed JASON Vaginal/Mouth,03/23/14 21:34,GAEL MAIN MD Ordered Chlamydia Gonorrhoeae Amplified RNA-[place] CGRNA,03/23/14 21:34,GAEL MAIN MD Ordered Lynx Order Management : Lab tests 30 Minutes Critical Care : No Nursing Notes RTF : Triage Forms ED Triage Assessment,03/23/14 21:14,ERIKA ROLDAN RN Nursing Notes ED Primary Assessment,03/23/14 21:19,ERIKA ROLDAN RN ED Pain Assessment,03/23/14 22:17,ERIKA ROLDAN RN [facility]x Nursing Assessment : Triage and 1-2 nursing assessments Lynx Disposition : Discharge Disposition RTF : discharge [facility]x Total Points with Diagnosis Control : 6 Lynx Visit Level : 61464 Level 3 Treatments Prior to Arrival : None ERIKA ROLDAN RN - 03/23/2014 22:17 SUPERVISOR SHEARING Source: [employer] Document Id: [id number] SUPERVISOR SHEARING!19 RVISOR SHEARING documented in this encounter Plan of Treatment Not on filedocumented as of this encounter Procedures Procedure Name Priority Date/Time Associated Comments Diagnosis N GONOR AMP SRC Routine 03/23/2014 10:12 PM Resul ts for this SUPERVISOR SHEARING procedure are i n the results section. N GONOR AMP DNA Routine 03/23/2014 10:12 PM Resul ts for this SUPERVISOR SHEARING procedure are i n the results section. C TRACH AMP SRC Routine 03/23/2014 10:12 PM Resul ts for this SUPERVISOR SHEARING procedure are i n the results section. C TRACH AMP RNA Routine 03/23/2014 10:12 PM Resul ts for this SUPERVISOR SHEARING procedure are i n the results section. WET PREP EXAM, Routine 03/23/2014 10:10 PM Result s for this UROGENITAL SUPERVISOR SHEARING procedure are i n the results section. TEST, U Routine 03/23/2014 9:38 PM Resu lts for this SUPERVISOR SHEARING procedure are i n the results section. documented in this encounter Results HX-N gonor Amp DNA (03/23/2014 10:12 PM SUPERVISOR SHEARING) athologist Signature HXN gonor Amp Negative POWERCHART DNA-[place] Specimen (Source) Anatomical Collection Method Collection Time Re ceived Time Location / / Volume Laterality 03/23/2014 10:12 PM SUPERVISOR SHEARING Narrative POWERCHART - 03/25/2014 6:46 PM SUPERVISOR SHEARING Test Performed by: [place] [address] Adult And Pediatric Neurologist: Abiodun Almanza Gael Main M.D. LAB HISTORICAL ORDERS Performing Organization Address City/[facility]/ZIP Code Phon e Number POWERCHART HX-N gonor Amp Src (03/23/2014 10:12 PM SUPERVISOR SHEARING) athologist Signature HXN gonor Amp VAGINAL POWERCHART Src-[place] Specimen (Source) Anatomical Collection Method Collection Time Re ceived Time Location / / Volume Laterality 03/23/2014 10:12 PM SUPERVISOR SHEARING Gael Main M.D. LAB HISTORICAL ORDERS Performing Organization Address City/State/ZIP Code Phon e Number POWERCHART HX-C trach Amp RNA (03/23/2014 10:12 PM SUPERVISOR SHEARING) [facility] gist Method Time Signature Chlamydia Negative POWERCHART trachomatis amplified RNA Specimen (Source) Anatomical Collection Method Collection Time Re ceived Time Location / / Volume Laterality 03/23/2014 10:12 PM SUPERVISOR SHEARING Gael Main M.D. LAB HISTORICAL ORDERS Performing Organization Address City/State/ZIP Code Phon e Number POWERCHART HX-C trach Amp Src (03/23/2014 10:12 PM SUPERVISOR SHEARING) P athologist Signature HXC trach Amp VAGINAL POWERCHART Src-[place] Specimen (Source) Anatomical Collection Method Collection Time Re ceived Time Location / / Volume Laterality 03/23/2014 10:12 PM SUPERVISOR SHEARING Gael Main M.D. LAB HISTORICAL ORDERS Performing Organization Address City/State/ZIP Code Phon e Number POWERCHART (ABNORMAL) Wet Prep Exam, Urogenital (03/23/2014 10:10 PM SUPERVISOR SHEARING) [facility] Method Time Signature HXWet Prep (POSITIVE) POWERCHART HXFinal Trichomonas: POWERCHART None HXFinal Clue Cells: Few POWERCHART (0-10/hpf) HXFinal Yeast: None POWERCHART HXFinal Sperm: Few POWERCHART (0-10/hpf) HXAmend Trichomonas: POWERCHART None HXAmend Clue Cells: Few POWERCHART (0-10/hpf) HXAmend Yeast: None POWERCHART HXAmend Sperm: Few POWERCHART (0-10/hpf) HXAmend Many WBC's POWERCHART (>25/hpf) HXAmend Few epithelial POWERCHART cells (0-5/hpf) Specimen (Source) Anatomical Collection Method Collection Time Re ceived Time Location / / Volume Laterality Vagina 03/23/2014 10:10 PM SUPERVISOR SHEARING Gael Main M.D. LAB MICROBIOLOGY - GENERAL O RDERABLES Performing Organization Address City/State/ZIP Code Phon e Number POWERCHART Test, Qualitative, Urine (03/23/2014 9:38 PM SUPERVISOR SHEARING) [facility] Method Time Signature HXBeta-hCG Negative POWERCHART Qualitative Urine Specimen (Source) Anatomical Collection Method Collection Time Re ceived Time Location / / Volume Laterality Urine 03/23/2014 9:38 PM SUPERVISOR SHEARING Gael Main M.D. LAB URINE ORDERABLES Performing Organization Address City/[facility]/ZIP Code Phon e Number POWERCHART documented in this encounter Visit Diagnoses Not on filedocumented in this encounter Care Teams Senior Business Architect Relationship Specialty Start Date End Date Gabrielle Jara M.D. PCP - General Family Medicine 10/04/13 [address] [place] [phone] documented as of this encounter
--- OUTSIDE RECORDS SUMMARY | 2021-11-21 03:05 | XMS_ITS | Encounter Summary ---
:1990 Author Organization [facility] Address [address] [place] [address] Care Team Providers Name Role Phone Unavailable Primary Care Provider Unavailable Encounter Details Date Type Department Care Team Description 08/25/2013 Hospital Encounter HX [facility] Raj Miller, N.[address] [place] [phone] (Wo rk) Social History Tobacco Use Types Packs/Day Years Used Date Smoking Tobacco: Never Assessed Sex Assigned at Date Recorded Not on file documented as of this encounter Plan of Treatment Not on filedocumented as of this encounter Visit Diagnoses Not on filedocumented in this encounter
--- OUTSIDE RECORDS SUMMARY | 2021-11-21 03:05 | XMS_ITS | Encounter Summary ---
:1990 Author Organization [facility] Address [address] [place] [address] Care Team Providers Name Role Phone Unavailable Primary Care Provider Unavailable Encounter Details Date Type Department Care Team Description 01/06/2012 Hospital Encounter HX [facility] Doug Mackenzie M.D. [address] [place] [phone] (Wo rk) Social History Tobacco Use Types Packs/Day Years Used Date Smoking Tobacco: Never Assessed Sex Assigned at Date Recorded Not on file documented as of this encounter Miscellaneous Notes Telephone Encounter - Conversion, Historical Provider Ser - 01/06/2012 12:00 AM CDT [id number] Pt would like to know what 's surgery schedule is like because she would like to know how long until she is able to get tubes back into ears. Please call at [phone] [facility] Document Id: [id number] Telephone Encounter - Conversion, Historical Provider Ser - 01/06/2012 12:00 AM CDT [id number] Appt was made for Jan 08. Source: [facility] Document Id: [id number] documented in this encounter Plan of Treatment Not on filedocumented as of this encounter Visit Diagnoses Not on filedocumented in this encounter
--- OUTSIDE RECORDS SUMMARY | 2021-11-21 03:05 | XMS_ITS | Encounter Summary ---
:1990 Author Organization [facility] Address [address] [place] [address] Care Team Providers Name Role Phone Gabrielle Jara M.D. Primary Care Provider Encounter Details Date Type Department Care Team Description 10/21/2014 Hospital Encounter HX [facility] Prince Ko III, M.D. [address] [place] [phone] (Wo rk) Social History Tobacco Use Types Packs/Day Years Used Date Smoking Tobacco: Never Assessed Sex Assigned at Date Recorded Not on file documented as of this encounter Last Filed Vital Signs Vital Sign Reading Time Taken Comments Blood Pressure 127/65 10/21/2014 9:11 AM CDT Pulse 88 10/21/2014 9:11 AM CDT Temperature - - Respiratory Rate 18 10/21/2014 9:11 AM CDT Oxygen Saturation - - Inhaled Oxygen Concentration - - Weight - - Height 179 cm (5' 10.47) 10/21/2014 9:11 AM CDT Body Mass Index - - documented in this encounter Progress Notes Gregorio Ko M.D. - 10/23/2014 12:00 AM CDT FM-LE CHIEF COMPLAINT/REASON FOR VISIT left ear pain HISTORY OF PRESENT ILLNESS The patient comes in today with 21 days of: (_) Cough, (_) non-painful, (_) painful (_) Runny nose (_) Congestion (_) Sore throat (_) Fever (x) Chills (x) She is and presents with significant left ear pain with drainage. She fears it has ruptured. Therapy tried thus far: She has not taken anything for this. MEDICATIONS calcium citrate, 2 tab(s), PO, 2xDay Multivitamins oral tablet, 1 tab(s), PO, Daily ALLERGIES No Known Medication Allergies PAST MEDICAL HISTORY Chronic Acne vulgaris Headache Left kidney infection Tobacco use Historical PROCEDURES/SURGICAL HISTORY Mantoux test (05/16/2011), Myringotomy (2007), Tonsillectomy (1997), PE TUBES - 2 sets, 1 in [facility], 1 in [facility] (), TONSILLECTOMY - as a child (). SOCIAL HISTORY Date Time: 10/21/2014 09:11 Tobacco: Smoking Status: Former smoker Exposure: Other: Former smoker: quit 03/2014 Alcohol: Use: No Recreational Drugs: Use: None Type: No Results Found FAMILY HISTORY Father: Negative: Sister: Negative: Brother: Negative: Grandfather:Positive: [place] - Renal cancer Uncle:Positive: Kidney stone Grandfather:Positive: [place] - Cancer of prostate SYSTEMS REVIEW Pertinent positives and negatives of the review of systems are noted in the HPI and the remainder of the complete review of systems is negative. VITAL SIGNS T: 36.3 ??C (Core) HR: 88 RR: 18 BP: 127 / 65 SpO2: 99% HT: 179 cm PHYSICAL EXAMINATION GENERAL: The patient is alert and cooperative and in no acute distress at this time. HEENT: Ears: TMs bulging on the right. Left TM has a rupture. The material within the external ear canal. Eyes pupils equal, round and reactive to light Nose: midline with normal turbinates. Mouth: there is no hyperemia or exudates of the posterior pharynx. NECK: The thyroid is not palpable or enlarged. There are no carotid bruits. There is no painful anterior cervical adenopathy. HEART: Regular rate and rhythm normal S1 and S2 no murmurs or gallops or rubs. LUNGS: Clear auscultation bilaterally. IMPRESSION/REPORT/PLAN 1. Otitis Media (OM) AcuteSerous W Ruptured Tympanic Membr L 2. Pain Ear González Given duration of symptoms and rupture it appears most appropriate to follow current guidelines. These include high-dose systemic antibiotics. The recommendation is amoxicillin 2 g 3 times daily for 10 days. Review of the literature regarding high-dose antibiotics in the setting of does not appear to show a contraindication. We would like to avoid diarrhea. Recommend probiotic or yogurt intake during this process. Planned follow-up in 10 days if symptoms do not improve. Electronically Signed By: GREGORIO KO III, MD On: 10/23/2014 02:22 PM Source: [facility] POWERCHART Document Id: [id number] documented in this encounter Miscellaneous Notes Telephone Encounter - Conversion, Historical Provider Ser - 10/21/2014 10:34 AM CDT *Phone Message Document Contains Addenda Addendum by GABRIELLE FAUST RN on 21 October 2014 10:50:03 CDT Patient is calling stating she is currently and was seen by Dr. Shell and placed on High dose of amoxicillin. She states she is being treated for otitis and ruptured ear drum. She is wondering if this is safe to take. Amoxicillin is category B in . Per willis alas with dosage. From: RAYMON MCNULTY ( Obstetrics/Gynecology Bacteriologist Food) To: Obstetrics/Gynecology Nurse Line; Sent: 10/21/2014 10:34:38 CDT Subject: *Phone Message Caller is: ( x ) Patient ( ) Mother ( ) Father ( ) Spouse ( ) Daughter ( ) Son ( ) Pharmacy ( ) Other: Physician: Patient Reason for Call: High dose anitbotic ok to take during . Message: Advice/Action: Amena can be reached at [phone]. Thank you, Raymon Patient Access Source used: [...] back cell phone number ( ) Source: [facility] POWERCHART Document Id: [id number] Miscellaneous - Gregorio Ko M.D. - 10/21/2014 9:54 AM CDT Ambulatory Patient Summary [address] [place] [phone] Visit Information Name: CHERRY HALL [facility] Number: [id number] Current Date: 10/21/2014 09:54:48 Physicians Attending Provider: GREGORIO KO III, MD Primary Care Provider: PCP, BAKARI CHERRY [...] Take Indications/Special Instructions/Comments/Notes for Patient Medication Changes/Routing amoxicillin (amoxicillin 500 mg oral tablet) 4 Tablet(s), Oral, three times a day x 10 day(s) Chronic supperative otitis media with rupture. New Routed to [address] calcium citrate (calcium citrate) 2 Tablet(s), Oral, two times a day multivitamin, ( Multivitamins oral tablet) 1 Tablet(s), Oral, once a day Stop Taking the Following Medications: Medication list as of 10-21-14 09:54 Attention: If you have any medications at home that are not on this list, DO NOT take them until youcontact your provider for clarification. Give a copy of your medication list to your primary care provider. Update your medication list any time medications or doses are changed and carry your medication list at all times in case of emergency. Electronically Signed By: GREGORIO KO III, MD Signed On:21-OCT-2014 09:54:44 Your Allergies & Intolerances Substance Reaction Symptoms [...] if you dont have one. Go to [email or web address] and click on Create Your Account. Then, follow the directions to complete the online form. Youll be asked for your [facility] number which you can find at the top of this document. Your Goals/Additional instructions: Source: [facility] POWERCHART Document Id: [id number] Miscellaneous - Gregorio Ko M.D. - 10/21/2014 9:54 AM CDT Ambulatory Discharge Medication List [address] [phone] Visit Information Name: CHERRY HALL [facility] Number: [id number] Visit Date: 10/21/2014 09:54:47 Attending Provider: GREGORIO KO III, MD Primary Care Provider: PCP, CHERRY EDMOND [...] Take Indications/Special Instructions/Comments/Notes for Patient Medication Changes/Routing amoxicillin (amoxicillin 500 mg oral tablet) 4 Tablet(s), Oral, three times a day x 10 day(s) Chronic supperative otitis media with rupture. New Routed to [address] calcium citrate (calcium citrate) 2 Tablet(s), Oral, two times a day multivitamin, ( Multivitamins oral tablet) 1 Tablet(s), Oral, once a day Stop Taking the Following Medications: Medication list as of 10-21-14 09:54 Attention: If you have any medications at home that are not on this list, DO NOT take them until youcontact your provider for clarification. Give a copy of your medication list to your primary care provider. Update your medication list any time medications or doses are changed and carry your medication list at all times in case of emergency. Electronically Signed By: GREGORIO KO III, MD Signed On:21-OCT-2014 09:54:44 Additional Information: Source: [facility] POWERCHART Document Id: [id number] Miscellaneous - Kaylee Mazariegos LPedroPPedroN. - 10/21/2014 9:11 AM CDT Adult Binding Nicker Intake/History Adult Binding Nicker Intake/History Entered On: 10/21/2014 9:14 CDT Performed On: 10/21/2014 9:11 CDT by KAYLEE MAZARIEGOS LPN Intake Chief Complaint : left ear pain Onset of Symptoms : 3 wks,getting worse Temperature Core : 36.3 DegC(Converted to: 97.3 DegF) (LOW) Peripheral Pulse Rate : 88 /min Respiratory Rate : 18 /min Heart Rhythm : Regular Systolic Blood Pressure : 127 mmHg Diastolic Blood Pressure : 65 mmHg NIBP Mean : 86 mmHg BP Location : Left upper extremity Blood Pressure Cuff Size : Regular SpO2 : 99 % Oxygen Therapy : Room air Height : 179 cm(Converted to: 5 ft 10 inch(es), 70 inch(es)) KAYLEE MAZARIEGOS LPN - 10/21/2014 9:11 CDT General Info Information Given By : Patient Languages : Bruneian Is Patient Female and 13-50 no hysterectomy : No KAYLEE MAZARIEGOS LPN - 10/21/2014 9:11 CDT Subjective Pain Symptoms : Yes ALLY MAZARIEGOSNORMA Rascon [facility] - 10/21/2014 9:11 CDT Pain Scale Pain Scale Verbal 0-10 : Open APRIL KAYLEE Rascon [facility] 10/21/2014 9:11 CDT Pain Pain Assessment Grid Pain 1 Location : Ear Laterality : Left Intensity : 3 ALLY MAZARIEGOSNORMA Rascon [facility] 10/21/2014 9:11 CDT Dependent Habits Tobacco Use/Currently Using : No Exposure to Tobacco Smoke : Other: Former smoker: quit 03/2014 Smoking Status : Former smoker ALLY MAZARIEGOSNORMA Rascon [facility] - 10/21/2014 9:11 CDT Tobacco Use Grid Type : Cigarettes MAZARIEGOSKAYLEE CHAND [facility] 10/21/2014 9:11 CDT Alcohol Use : No APRILKAYLEE [facility] 10/21/2014 9:11 CDT Caffeine Use Grid Caffeine Use : None Type : Coffee Frequency : Daily Amount : 1 KAYLEE MAZARIEGOS [facility] 10/21/2014 9:11 CDT Recreational Drug Use Grid Drug Use : None ALLY MAZARIEGOSNORMA Rascon [facility] 10/21/2014 9:11 CDT Source: [employer] Document Id: [id number] CDT!47 documented in this encounter Plan of Treatment Not on filedocumented as of this encounter Visit Diagnoses Not on filedocumented in this encounter Care Teams Harvest Crew Supervisor Relationship Specialty Start Date End Date Gabrielle Jara M.D. PCP - General Family Medicine 10/04/13 [address] [place] [address] documented as of this encounter
--- OUTSIDE RECORDS SUMMARY | 2021-11-21 03:05 | XMS_ITS | Encounter Summary ---
:1990 Author Organization [facility] Address [address] [place] [address] Care Team Providers Name Role Phone Gabrielle Jara M.D. Primary Care Provider Encounter Details Date Type Department Care Team Description 09/20/2014 Hospital Encounter HX [facility] Arnulfo Ledesma M.D. [address] [place], [place] [phone] (Wo rk) Social History Tobacco Use Types Packs/Day Years Used Date Smoking Tobacco: Never Assessed Sex Assigned at Date Recorded Not on file documented as of this encounter Last Filed Vital Signs Vital Sign Reading Time Taken Comments Blood Pressure 120/65 09/20/2014 3:23 PM CDT Pulse 101 09/20/2014 3:23 PM CDT Temperature - - Respiratory Rate 18 09/20/2014 3:23 PM CDT Oxygen Saturation - - Inhaled Oxygen Concentration - - Weight 109 kg (240 lb 4.8 oz) 09/20/2014 3:23 PM CDT Height 179 cm (5' 10.47) 09/20/2014 3:23 PM CDT Body Mass Index 34.02 09/20/2014 3:23 PM CDT documented in this encounter Miscellaneous Notes Miscellaneous - Emilie Armendariz M.D. - 09/20/2014 3:51 PM CDT Ambulatory Patient Summary [address] [facility] [place] [id number] Visit Information Name: CHERRY HALL [facility] Number: [id number] Current Date: 09/20/2014 15:51:21 Physicians Attending Provider: EMILIE ARMENDARIZ MD Primary Care Provider: PCP, CHERRY EDMOND MEENA has been given the following list [...] a day Stop Taking the Following Medications: ondansetron (Zofran 4 mg oral tablet) Medication list as of 09-20-14 15:51 Attention: If you have any medications at [...] Electronically Signed By: EMILIE ARMENDARIZ MD Signed On:20-SEP-2014 15:51:16 Your Allergies & Intolerances Substance Reaction Symptoms Category Comments No Known Medication Allergies Drug NO KNOWN DRUG ALLERGIES Your Problem List Problem Status Onset Comments Left kidney infection Active 04/14/2003 10/24/10 function 12% date unknown Acne vulgaris Active 02/13/2011 Headache Active 2010 Tobacco use Active 2002 09/03/11 unknown date of dx Active 03/03/2014 Your Upcoming Appointments Date Time Location Provider 10/05/2014 14:30 [facility] Kalyie Richard Attention: Contact your local Clinic if further appointment detail needed. Your Goals/Additional instructions: Source: [facility] POWERCHART Document Id: [id number] Miscellaneous - Emilie Armendariz M.D. - 09/20/2014 3:51 PM CDT Ambulatory Discharge Medication List [address] [place] [id number] Visit Information Name: CHERRY HALL [facility] Number: [id number] Visit Date: 09/20/2014 15:51:20 Attending Provider: EMILIE ARMENDARIZ MD Primary Care [...] a day Stop Taking the Following Medications: ondansetron (Zofran 4 mg oral tablet) Medication list as of 09-20-14 15:51 Attention: If you have any medications at [...] Electronically Signed By: EMILIE ARMENDARIZ MD Signed On:20-SEP-2014 15:51:16 Additional Information: Source: [facility] POWERCHART Document Id: [id number] Miscellaneous - Stephanie Ledesma, L.P.N. - 09/20/2014 3:23 PM CDT Adult Demonstrator Sales Intake/History Adult Demonstrator Sales Intake/History Entered On: 09/20/2014 15:25 CDT Performed On: 09/20/2014 15:23 CDT by REGGIE, STEPHANIE L NETWORK ANALYST Intake Chief Complaint : 28 Week OB Temperature Core : 37.2 DegC(Converted to: 99.0 DegF) Peripheral Pulse Rate : 101 /min (HI) Respiratory Rate : 18 /min Heart Rhythm : Regular Systolic Blood Pressure : 120 mmHg Diastolic Blood Pressure : 65 mmHg NIBP Mean : 83 mmHg BP Location : Left upper extremity Blood Pressure Cuff Size : Large Height : 179 cm(Converted to: 5 ft 10 inch(es), 70 inch(es)) Actual Weight : 109.0 kg(Converted to: 240 lb 5 oz) Weight Source : Standing scale Dosing Weight Clinic : 109 kg Clinic BSA : 2.33 Body Mass Index : 34.02 kg/m2 STEPHANIE LEDESMA NETWORK ANALYST - 09/20/2014 15:23 CDT General Info Information Given By : Patient Languages : Mongolian Is Patient Female and 13-50 no hysterectomy : No STEPHANIE LEDESMA LPN - 09/20/2014 15:23 CDT Subjective Pain Symptoms : No STEPHANIE LEDESMA LPN - 09/20/2014 15:23 CDT Dependent Habits Tobacco Use/Currently Using : No Tobacco Use/Last 12 months : No Tobacco Use/Advised to Quit : No Exposure to Tobacco Smoke : Other: Former smoker: quit 03/2014 Smoking Status : Never smoker STEPHANIE LEDESMA LPN - 09/20/2014 15:23 CDT Tobacco Use Grid Type : Cigarettes STEPHANIE LEDESMA LPN - 09/20/2014 15:23 CDT Caffeine Use Grid Caffeine Use : None STEPHANIE LEDESMA LPN - 09/20/2014 15:23 CDT Recreational Drug Use Grid Drug Use : None STEPHANIE LEDESMA LPN - 09/20/2014 15:23 CDT Source: [facility] POWERCHART Document Id: [id number] CDT!39 documented in this encounter Plan of Treatment Not on filedocumented as of this encounter Visit Diagnoses Not on filedocumented in this encounter Care Teams Machine Setter Sheet Metal Relationship Specialty Start Date End Date Gabrielle Jara M.D. PCP - General Family Medicine 10/04/[address] [place] [phone] documented as of this encounter
--- OUTSIDE RECORDS SUMMARY | 2021-11-21 03:05 | XMS_ITS | Encounter Summary ---
:1990 Author Organization [facility] Address [address] [place] [address] Care Team Providers Name Role Phone Gabrielle Jara M.D. Primary Care Provider Encounter Details Date Type Department Care Team Description 08/19/2014 Hospital Encounter HX [facility] Barbie Herrera M.D. [address] [place] [phone] (Wo rk) Social History Tobacco [...] - - Height 179 cm (5' 10.47) 08/19/2014 8:47 AM CDT Body Mass Index - - documented in this encounter Miscellaneous Notes Miscellaneous - Conversion, Historical Provider Ser - 08/19/2014 11:59 PM CDT Coding Summary-Paper Based CODING DATE: 08/24/2014 FINAL [facility] STATUS: * Discharged to Home or Self Care PAYOR: MMSI ADMIT DX: V28.81 Encounter for Anatomic Survey REASON FOR VISIT DX: V28.81 Encounter for Anatomic Survey FINAL DX: PRINCIPAL: V28.81 Encounter for Anatomic Survey SECONDARY: PROCEDURES DOCTOR NAME DATE NOTE: The code number assigned matches the documented diagnosis and / or procedure in the patient's chart. However, the narrative phrase printed from the coding software may appear abbreviated, or result in slightly different terminology. Coded By: CATHIE OSEGUERA Date Saved: 08/24/2014 02:30 pm Source: [facility] POWERCHART Document Id: [id number] documented in this encounter Plan of Treatment Not on filedocumented as of this encounter Visit Diagnoses Not on filedocumented in this encounter Care Teams Filleter Relationship Specialty Start Date End Date Gabrielle Jara M.D. PCP - General Family Medicine 10/04/[address] [place] [address] documented as of this encounter
--- OUTSIDE RECORDS SUMMARY | 2021-11-21 03:05 | XMS_ITS | Encounter Summary ---
:1990 Author Organization [facility] Address [address] [place] [address] Care Team Providers Name Role Phone Unavailable Primary Care Provider Unavailable Encounter Details Date Type Department Care Team Description 01/07/2013 Hospital Encounter HX NO MAPPING Nakul Martinez M.D. [address] [place] [address] [phone] (Wo rk) Social History Tobacco Use Types Packs/Day Years Used Date Smoking Tobacco: Never Assessed Sex Assigned at Date Recorded Not on file documented as of this encounter Plan of Treatment Not on filedocumented as of this encounter Visit Diagnoses Not on filedocumented in this encounter
--- OUTSIDE RECORDS SUMMARY | 2021-11-21 03:05 | XMS_ITS | Encounter Summary ---
:1990 Author Organization [facility] Address [address] [place] [address] Care Team Providers Name Role Phone Unavailable Primary Care Provider Unavailable Encounter Details Date Type Department Care Team Description 12/31/2012 Hospital Encounter HX NO MAPPING Provider, Historical Social History Tobacco Use Types Packs/Day Years Used Date Smoking Tobacco: Never Assessed Sex Assigned at Date Recorded Not on file documented as of this encounter Plan of Treatment Not on filedocumented as of this encounter Visit Diagnoses Not on filedocumented in this encounter
--- OUTSIDE RECORDS SUMMARY | 2021-11-21 03:05 | XMS_ITS | Encounter Summary ---
:1990 Author Organization [facility] Address [address] [place] [address] Care Team Providers Name Role Phone Gabrielle Jara M.D. Primary Care Provider Encounter Details Date Type Department Care Team Description 08/19/2014 Hospital Encounter HX [facility] OBCecil Savage A PRN, NP- [address] [place] [phone] (Wo rk) Social History Tobacco Use Types Packs/Day Years Used Date Smoking Tobacco: Never Assessed Sex Assigned at Date Recorded Not on file documented as of this encounter Last Filed Vital Signs Vital Sign Reading Time Taken Comments Blood Pressure 126/72 08/19/2014 10:01 AM CDT Pulse - - Temperature - - Respiratory Rate - - Oxygen Saturation - - Inhaled Oxygen Concentration - - Weight 105 kg (231 lb 14.8 oz) 08/19/2014 10:01 AM CDT Height 179 cm (5' 10.47) 08/19/2014 10:01 AM CDT Body Mass Index 32.83 08/19/2014 10:01 AM CDT documented in this encounter Miscellaneous Notes Telephone Encounter - Conversion, Historical Provider Ser - 10/24/2014 12:25 PM CDT *Phone Message Document Contains Addenda Addendum by GABRIELLE FAUST RN on 24 October 2014 13:33:47 CDT From: GABRIELLE FAUST RN ( Obstetrics/Gynecology Nurse Line) To: BANDAR PORTILLO MD; Sent: 10/24/2014 13:33:47 CDT Subject: FW: *Phone Message Addendum by GABRIELLE FAUST RN on 24 October 2014 13:33:42 CDT Called patient. she states over the past 3 week she has noticed 3 episodes that when she goes to the bathroom she has snake like stringy discharge. She states minimal color to the discharge, she denies any green discharge. She denies any vaginal itching or burning. She states she knows that she is dilated to one and 50 % effaced she was told at her last visit. She states having intermittent period like cramping with last cramping episode last evening. She states baby is active and moving. She is wondering if this is normal. per Dr. Portillo patient to come in for NST, patient states I feel fine She states she just got home from work, has her daughter and unsure of coming in. Encouraged to come per physician recommendations. Patient states she doesn't know when she will be able to come in but will try Labor and delivery notifed. From: MICHAELA EDMOND ( Family Medicine Wood Web Weaving Machine Operator) To: Obstetrics/Gynecology Nurse Line; Sent: 10/24/2014 12:25:53 CDT Subject: *Phone Message Caller is: ( X ) Patient ( ) Mother ( ) Father ( ) Spouse ( ) Daughter ( ) Son ( ) Pharmacy ( ) Other: Physician: OB Patient MRN #: Reason for Call: symptoms Message: Patient is requesting to talk to nurse regarding symptoms she thinks are related to mucus plug. She can be reached at [phone]. Advice/Action: Source used: ( ) Verbalizes understanding [...] back cell phone number ( ) Source: [facility] POWERCHART Document Id: [id number] Telephone Encounter - Conversion, Historical Provider Ser - 10/03/2014 12:45 PM CDT *Phone Message Document Contains Addenda Addendum by VINICIUS PETER MD on 03 October 2014 14:10:52 CDT From: VINICIUS PETER MD To: Obstetrics/Gynecology Nurse Line; Sent: 10/03/2014 14:10:52 CDT Subject: RE: *Phone Message Agree with plan. SAT Addendum by GABRIELLE FAUST RN on 03 October 2014 13:26:17 CDT From: GABRIELLE FAUST RN ( Obstetrics/Gynecology Nurse Line) To: VINICIUS PETER MD; Sent: 10/03/2014 13:26:17 CDT Subject: FW: *Phone Message Addendum by GABRIELLE FAUST RN on 03 October 2014 13:26:10 CDT called patient. she states she is 31 weeks she started feeling ill on Friday. she states it started as a runny nose and then sore throat. she states over the weekend she became cold, clammy, and then sweating. she took her temperature yesterday and no fever. she states she has not taken it yet today but feels clammy, then hot, and pouring sweat. She states having alot of clear nasal drainage and harsh cough. she states she coughs so hard to the point where she is vomiting. she states having alot of green thick sputum when coughing. She states she is short of breath, winded and wheezing intermittently. Patient is winded on the phone when talking. She states having alot of nasal congestion. Patient is instructed to report to urgent care. patient in agreement with plan. Telephone Triage Protocols for Nurses by Feliz 4 th edition , cold symptoms pg 408 From: MICHAELA EDMOND ( Family Medicine Wood Web Weaving Machine Operator) To: Obstetrics/Gynecology Nurse Line; Sent: 10/03/2014 12:45:46 CDT Subject: *Phone Message Caller is: ( X ) Patient ( ) Mother ( ) Father ( ) Spouse ( ) Daughter ( ) Son ( ) Pharmacy ( ) Other: Physician: OB Patient MRN #: Reason for Call: Cold Message: Patient is wondering what she can take for cold symptoms, she can be reached at [phone]. Advice/Action: Source used: ( ) Verbalizes understanding [...] back cell phone number ( ) Source: [facility] Document Id: [id number] Telephone Encounter - Gabrielle Faust R.N. - 09/08/2014 10:24 AM CDT *Phone Message Document Contains Addenda Addendum by GABRIELLE FAUST RN on 08 Sep 2014 11:14 CDT patient called back and has not made an appointment in [place] yet. she will call now. instructedto be seen today and to call back either way if appointment in [place] or needing an appointment here. patient in agreement with plan Modified by and Electronically Signed by: GABRIELLE FAUST RN On: 09/08/2014 11:14 AM Addendum by GABRIELLE FAUST RN on 08 Sep 2014 10:28 CDT attempted to call to see if appointment was made in [place], no answer. left message to return call. Modified by and Electronically Signed by: GABRIELLE FAUST RN On: 09/08/2014 10:28 AM From: GABRIELLE FAUST RN ( Obstetrics/Gynecology Nurse Line) Sent: 09/08/2014 10:24:52 CDT Subject: *Phone Message Caller is: ( x ) Patient ( ) Mother ( ) Father ( ) Spouse ( ) Daughter ( ) Son ( ) Pharmacy ( ) Other: Physician: Dr. Peter Patient MRN #: Reason for Call: Triage Message:Cherry is calling stating she is 27 weeks and is concerned of decreased movement. She states no movement yesterday and now today only one little flutter after eating and drinking some juice which occurred 4 hours ago. She is concerned due to usual alot of activity but has decreased over the past 2 days. Patient denies any other symptoms only concerned of decreased movement. Advice/Action: Offered appointment today for heartbeat check/reassurance, Patient declined as she states she is in [place] right now and would like to be seen there. Patient given phone number to call [place] per request offered again in [place] and patient declined she will call back if no appointments in [place] . Source used: Telephone Triage for Obstetrics and Gynecolgoy by Fazal 2 nd edition 3rd trimester decreased movement Dr. Peter informed and agreement with plan. ( ) Verbalizes understanding of instructions ( [...] back cell phone number ( ) Source: [facility] POWERCHART Document Id: [id number] Miscellaneous - Cecil Gonzalez R.N. - 08/19/2014 12:29 PM CDT lab results From: CECIL GONZALEZ SQL SSRS DEVELOPER To: RAFAELRHETTCHERRY MEENA Sent: 08/19/2014 12:29:04 CDT Subject: lab results Jerry Ledbetteri, Your CBC and 1 hour glucose test are normal. Please feel free to contact our office. Cecil Addison Results: Date Result Name Ind Value Ref Range 08/19/2014 09:43 Hgb (L) 11.9 g/dL (12.0 - 15.5) 08/19/2014 09:43 Hct 35.5 % (34.9 - 44.5) 08/19/2014 09:43 WBC (H) 12.5 x10(9)/L (3.5 - 10.5) 08/19/2014 09:43 RBC (L) 3.70 x10(12)/L (3.90 - 5.03) 08/19/2014 09:43 MCV 95.9 fL (82.0 - 98.0) 08/19/2014 09:43 RDW 14.1 % (11.9 - 15.5) 08/19/2014 09:43 Platelet 273 x10(9)/L (150 - 450) 08/19/2014 08:45 Glucose 1 Hr OB 123 mg/dL (70 - 139) Source: [facility] POWERCHART Document Id: [id number] Electronically signed by Shi, [facility] It Administrative Assistant [id number] at 09/08/2016 7:05 PM CDT Miscellaneous - Cecil Gonzalez, R.N. - 08/19/2014 10:20 AM CDT Ambulatory Patient Summary [address] [place], [place] [id number] Visit Information Name: CHERRY ALCANTARA [facility] Number: [id number] Current Date: 08/19/2014 10:20:16 Physicians Attending Provider: CECIL GONZALEZ SQL SSRS DEVELOPER Primary Care Provider: PCP, ELSEWHERE CHERRY ALCANTARA has been given the following list of [...] the Following Medications: Medication list as of 08-19-14 10:20 Attention: If you have any medications at [...] of emergency. Electronically Signed By: CECIL GONZALEZ SQL SSRS DEVELOPER Signed On:19-AUG-2014 10:20:13 Your Allergies & Intolerances Substance Reaction Symptoms [...] appointment detail needed. Your Goals/Additional instructions: Source: [facility] POWERCHART Document Id: [id number] Miscellaneous - Cecil Gonzalez, R.N. - 08/19/2014 10:20 AM CDT Ambulatory Discharge Medication List [facility] [address] [place], [place] [phone] Visit Information Name: CHERRY ALCANTARA [facility] Number: [id number] Visit Date: 08/19/2014 10:20:15 Attending Provider: CECIL GONZALEZ SQL SSRS DEVELOPER Primary Care Provider: PCP, ELSEWHERE CHERRY ALCANTARA has been given the following list of [...] the Following Medications: Medication list as of 08-19-14 10:20 Attention: If you have any medications at [...] of emergency. Electronically Signed By: CECIL GONZALEZ SQL SSRS DEVELOPER Signed On:19-AUG-2014 10:20:13 Additional Information: Source: [facility] POWERCHART Document Id: [id number] Miscellaneous - Mauricio Magdaleno LPedroPPedroNPedro - 08/19/2014 10:01 AM CDT Adult Director Of Rooms Intake/History Adult Director Of Rooms Intake/History Entered On: 08/19/2014 10:02 CDT Performed On: 08/19/2014 10:01 CDT by MAURICIO MAGDALENO LPN Intake Chief Complaint : 24 week LMP Date : 03/03/14 Systolic Blood Pressure : 126 mmHg Diastolic Blood Pressure : 72 mmHg NIBP Mean : 90 mmHg Height : 179 cm(Converted to: 5 ft 10 inch(es), 70 inch(es)) Actual Weight : 105.2 kg(Converted to: 231 lb 15 oz) Dosing Weight Clinic : 105.2 kg Clinic BSA : 2.29 Body Mass Index : 32.83 kg/m2 MAURICIO MAGDALENO LPN - 08/19/2014 10:01 CDT General Info Information Given By : Patient Languages : Welsh Is Patient Female and 13-50 no hysterectomy : No MAURICIO MAGDALENO LPN - 08/19/2014 10:01 CDT Subjective Pain Symptoms : No MAURICIO MAGDALENO LPN - 08/19/2014 10:01 CDT Dependent Habits Tobacco Use/Currently Using : No Exposure to Tobacco Smoke : Other: Former smoker: quit 03/2014 Smoking Status : Former smoker MAURICIO MAGDALENO [facility] - 08/19/2014 10:01 CDT Tobacco Use Grid Type : Cigarettes MAURICIO MAGDALENO [facility] 08/19/2014 10:01 CDT Alcohol Use : No MAURICIO MAGDALENO [facility] 08/19/2014 10:01 CDT Caffeine Use Grid Caffeine Use : None MAURICIO MAGDALENO [facility] - 08/19/2014 10:01 CDT Recreational Drug Use Grid Drug Use : None MAURICIO MAGDALENO [facility] 08/19/2014 10:01 CDT ID Screen Drug Resistant Organism : No Travel Within Last 21 Days : No Contact with someone with Ebola : No MAURICIO MAGDALENO [facility] 08/19/2014 10:01 CDT Source: [facility] NadanuCHART Document Id: [id number] CDT!36 documented in this encounter Plan of Treatment Not on filedocumented as of this encounter Procedures Procedure Name Priority Date/Time Associated Comments Diagnosis CBC WITHOUT Routine 08/19/2014 9:43 AM Results f or this DIFFERENTIAL, B CDT procedure ar e in the results section. GLUCOSE, GESTATIONAL Routine 08/19/2014 8:45 AM R esults for this 1HR, S CDT procedure are i n the results section. documented in this encounter Results (ABNORMAL) CBC without Differential (08/19/2014 9:43 AM CDT) Analysis Performed At Patho logist Time Signature Hematocrit 35.5 34.9 - POWERCHART 44.5 Hemoglobin 11.9 (L) 12.0 - POWERCHART 15.5 GDL MCV 95.9 82.0 - POWERCHART 98.0 FL Platelet Count 273 150 - 450 POWERCHART X109L Erythrocytes 3.70 (L) 3.90 - POWERCHART 5.03 [id number] HX RDW 14.1 11.9 - POWERCHART 15.5 Leukocytes 12.5 (H) 3.5 - 10.5 POWERCHART X109L Specimen (Source) Anatomical Collection Method Collection Time Re ceived Time Location / / Volume Laterality Blood 08/19/2014 9:43 AM CDT Cecil Gonzalez APRN [facility] LAB BLOOD ADD-ON Performing Organization Address City/State/ZIP Code Phon e Number POWERCHART Glucose, Gestational 1HR (08/19/2014 8:45 AM CDT) P athologist Signature HXGlucose 1 Hr 123 70 - 139 POWERCHART [facility] Comment: A glucose threshold value >= 14 0mg/dL identifies approximately 80% of women with GDM, and the yield is further incre ased to 90% by using a cutoff of >=130mg/dL Specimen (Source) Anatomical Collection Method Collection Time Re ceived Time Location / / Volume Laterality Blood 08/19/2014 8:45 AM CDT Cecil Gonzalez APRN J[facility]- LAB BLOOD ADD-ON Performing Organization Address City/State/ZIP Code Phon e Number POWERCHART documented in this encounter Visit Diagnoses Not on filedocumented in this encounter Care Teams Gas Shovel Operator Relationship Specialty Start Date End Date Gabrielle Jara M.D. PCP - General Family Medicine 10/04/[address] [place] [address] documented as of this encounter
--- OUTSIDE RECORDS SUMMARY | 2021-11-21 03:05 | XMS_ITS | Encounter Summary ---
:1990 Author Organization [facility] Address [address] [place] [address] Care Team Providers Name Role Phone Gabrielle Jara M.D. Primary Care Provider Encounter Details Date Type Department Care Team Description 09/08/2014 Hospital Encounter HX [facility] Damon James, NURS R.N. [address] [place] [phone] Social History Tobacco Use Types Packs/Day Years Used Date Smoking Tobacco: Never Assessed Sex Assigned at Date Recorded Not on file documented as of this encounter Plan of Treatment Not on filedocumented as of this encounter Visit Diagnoses Not on filedocumented in this encounter Care Teams Systems Analyst Relationship Specialty Start Date End Date Gabrielle Jara M.D. PCP - General Family Medicine 10/04/[address] [place] [phone] documented as of this encounter
--- OUTSIDE RECORDS SUMMARY | 2021-11-21 03:05 | XMS_ITS | Encounter Summary ---
:1990 Author Organization [facility] Address [address] [place] [address] Care Team Providers Name Role Phone Gabrielle Jara M.D. Primary Care Provider Encounter Details Date Type Department Care Team Description 04/15/2014 Hospital Encounter HX [facility] Aren Lawler M.D. [address] [place] [address] (Wo rk) Social History Tobacco Use Types [...] - - Height 180 cm (5' 10.87) 04/15/2014 9:51 AM LOOM FIXER APPRENTICE Body Mass Index - - documented in this encounter Plan of Treatment Not on filedocumented as of this encounter Procedures Procedure Name Priority Date/Time Associated Diagnosis Comme nts BHCG (BETA-HUMAN Routine 04/15/2014 9:58 AM Resul ts for this CHORIONIC LOOM FIXER APPRENTICE procedure are i n GONADOTROPIN), the results AMADO, S section. documented in this encounter Results (ABNORMAL) bHCG (Beta-Human Chorionic Gonadotropin), Quantitative (04/15/2014 9:58 AM LOOM FIXER APPRENTICE) Analysis Performed At Patho logist Time Signature Beta-HCG, 03313.0 0.0 - 2.3 POWERCHART Quantitative, (H) IUL S Comment: Adult Female: Premonopausal, non: <1.0 IU/L Postmenopausal: <7.0 IU/L Specimen (Source) Anatomical Collection Method Collection Time Re ceived Time Location / / Volume Laterality Blood 04/15/2014 9:58 AM LOOM FIXER APPRENTICE Aren Ferreira Obi, M.D. LAB BLOOD ADD-ON Performing Organization Address City/State/ZIP Code Phon e Number POWERCHART documented in this encounter Visit Diagnoses Not on filedocumented in this encounter Care Teams Language Pathologist Relationship Specialty Start Date End Date Gabrielle Jara M.D. PCP - General Family Medicine 10/04/13 [address] [place] [phone] documented as of this encounter
--- OUTSIDE RECORDS SUMMARY | 2021-11-21 03:05 | XMS_ITS | Encounter Summary ---
:1990 Author Organization [facility] Address [address] [place] [address] Care Team Providers Name Role Phone Unavailable Primary Care Provider Unavailable Encounter Details Date Type Department Care Team Description 12/31/2012 Hospital Encounter HX NO MAPPING Doug Eli M.D. [address] [place] [address] [phone] (Wo rk) Social History Tobacco Use Types Packs/Day Years Used Date Smoking Tobacco: Never Assessed Sex Assigned at Date Recorded Not on file documented as of this encounter Last Filed Vital Signs Vital Sign Reading Time Taken Comments Blood Pressure 102/62 12/31/2012 9:28 AM CDT Pulse 65 12/31/2012 9:28 AM CDT Temperature - - Respiratory Rate 16 12/31/2012 9:28 AM CDT Oxygen Saturation - - Inhaled Oxygen Concentration - - Weight - - Height - - Body Mass Index - - documented in this encounter Consult Notes Doug Eli M.D. - 12/31/2012 9:10 AM CDT [id number] CHIEF COMPLAINT/REASON FOR VISIT Left ear infection, at the request of Trinity Miller. HISTORY OF PRESENT ILLNESS Ms. Mazariegos is a pleasant 22-year-old woman. The patient reports a lifelong history of left ear infections. She was followed by Josel[facility] for some time. She was placed on Amina and nasal spray which seemed to work in the past, but more recently she has tried it and does not seem to be improving her symptoms. ENT SALIENT HISTORY Left PE tube times 2 (most recently age 17 years). Her symptoms sound as though they include her ear hurts really bad. If she yawns her ear unplugs, but she does not feel she should have to do that all the time. She does have associated left hearing loss. In the past, she has had some improvement with Amoxil or other antibiotics. Her symptoms have been lifelong with recurrent exacerbations. ADULT NEW PATIENT QUESTIONNAIRE The NPQ is filled out by the patient and is reviewed including 10-system review of systems, past medical history, surgical history, social history, and family history. PHYSICAL EXAMINATION GENERAL APPEARANCE: Normal. OTOSCOPIC: Left: Canal normal. TM - inferior central TM atelectasis onto the promontory. TM is slightly atrophic. Posteroinferior there is a small cerumen crust on what appears to be an otherwise mobile TM. Right: Canal normal. TM translucent, healthy, mobile. INTRANASAL: Normal. ORAL CAVITY: Normal. OROPHARYNX: Status post tonsillectomy. NASOPHARYNX: Seen to excellent advantage with mirror, normal without masses. HYPOPHARYNX/LARYNX: Precluded by gag reflex. NECK: Normal. CERVICAL LYMPH NODES: Normal. THYROID: Not palpably enlarged. SALIVARY GLANDS: Normal. VOICE: Normal. IMPRESSION/REPORT/PLAN 1. Left eustachian tube dysfunction, lifelong. We discussed at length options including no intervention, medication management, or surgical intervention which initially at least would include replacinga PE tube. I discussed with her the increased risk of perforation given her somewhat atrophic TM, although I do think this might be a good approach and she has had good relief in the past. I would suggest starting with a short-term tube initially, and if this fell out and she had no further complications consider a long-term tube. Risks of early plugging or extrusion and otorrhea discussed. She voiced understanding and agreement. 2. Left TM atelectasis with cerumen impaction. Small focal area posteroinferior on the TM. I think this would be best approached with some ceruminolytic drops on the left ear to soften it. I can examine her under microscopy when she returns in [place] for a hearing test. 3. Left hearing loss - hearing test. I will see her back in [place] in approximately 2 weeks for review of audiogram and consideration of a PE tube. Doug Eli M.D./[facility] Electronically Signed By: DOUG ELI MD On: 01/20/2013 11:43 AM Source: [facility] MHSDOLBEYNONRADSYS Document Id: [id number] documented in this encounter Miscellaneous Notes Miscellaneous - Jennifer Villa, RPedroN. - 12/31/2012 9:28 AM CDT Adult Cannon Pinion Adjuster Intake/History Adult Cannon Pinion Adjuster Intake/History Entered On: 12/31/2012 9:32 CDT Performed On: 12/31/2012 9:28 CDT by JENNIFER VILLA [employer] Chief Complaint : chronic left ear infection Temperature Core : 36.8 DegC(Converted to: 98.2 DegF) Peripheral Pulse Rate : 65 /min Respiratory Rate : 16 /min Heart Rhythm : Regular Systolic Blood Pressure : 102 mmHg Diastolic Blood Pressure : 62 mmHg NIBP Mean : 75 mmHg BP Location : Left upper extremity Blood Pressure Cuff Size : Regular SpO2 : 98 % JENNIFER VILLA RN - 12/31/2012 9:28 CDT General Info Information Given By : Patient Preferred Communication Mode : Verbal Languages : [place] JENNIFER VILLA RN - 12/31/2012 9:28 CDT Subjective Pain Symptoms : No JENNIFER VILLA RN - 12/31/2012 9:28 CDT Dependent Habits Tobacco Use/Currently Using : No Exposure to Tobacco Smoke : Patient smokes Smoking Status : Former smoker JENNIFER VILLA RN - 12/31/2012 9:28 CDT Tobacco Use Grid Type : Cigarettes JENNIFER VILLA RN - 12/31/2012 9:28 CDT Caffeine Use Grid Caffeine Use : None JENNIFER VILLA RN - 12/31/2012 9:28 CDT Recreational Drug Use Grid Drug Use : None JENNIFER VILLA RN - 12/31/2012 9:28 CDT Source: [facility] POWERCHART Document Id: [id number] CDT!32 documented in this encounter Plan of Treatment Not on filedocumented as of this encounter Visit Diagnoses Not on filedocumented in this encounter
--- OUTSIDE RECORDS SUMMARY | 2021-11-21 03:05 | XMS_ITS | Encounter Summary ---
:1990 Author Organization [facility] Address [address] [place] [address] Care Team Providers Name Role Phone Gabrielle Jara M.D. Primary Care Provider Encounter Details Date Type Department Care Team Description 07/21/2014 Hospital Encounter HX [facility] Kristine Hernandez, TREVER, EVELIO- [address] [place] [phone] (Wo rk) Social History Tobacco Use [...] - - Height 179 cm (5' 10.47) 07/21/2014 2:18 PM CDT Body Mass Index - - documented in this encounter Miscellaneous Notes Miscellaneous - Kristine Rain, R.N. - 07/22/2014 12:31 PM CDT From: [employer] Sent: 07/22/2014 12:31:57 CDT Patient is informed of ultrasound results, she will schedule repeat ultrasound in 1-2 months. Source: [facility] POWERCHART Document Id: [id number] Electronically signed by Shi, [facility] Educational Consultant [id number] at 09/08/2016 3:12 PM CDT Miscellaneous - Conversion, Historical Provider Ser - 07/21/2014 11:59 PM CDT Coding Summary-Paper Based CODING DATE: 07/26/2014 FINAL RW [facility] STATUS: * Discharged to Home or Self Care PAYOR: MMSI ADMIT DX: V22.1 Supervision of Other Normal REASON FOR VISIT DX: V22.1 Supervision of Other Normal FINAL DX: PRINCIPAL: V22.1 Supervision of Other Normal SECONDARY: V28.81 Encounter for Anatomic Survey PROCEDURES DOCTOR NAME DATE NOTE: The code number assigned matches the documented diagnosis and / or procedure in the patient's chart. However, the narrative phrase printed from the coding software may appear abbreviated, or result in slightly different terminology. Coded By: JIMENA BASSETT Date Saved: 07/26/2014 02:01 pm Source: [facility] 1SkySQLCHART Document Id: [id number] documented in this encounter Plan of Treatment Not on filedocumented as of this encounter Visit Diagnoses Not on filedocumented in this encounter Care Teams Beating Machine Operator Relationship Specialty Start Date End Date Gabrielle Jara M.D. PCP - General Family Medicine 10/04/[address] [place] [phone] documented as of this encounter
--- OUTSIDE RECORDS SUMMARY | 2021-11-21 03:05 | XMS_ITS | Encounter Summary ---
:1990 Author Organization [facility] Address [address] [place] [address] Care Team Providers Name Role Phone Unavailable Primary Care Provider Unavailable Encounter Details Date Type Department Care Team Description 01/10/2012 Hospital Encounter HX [facility] [place] Raj Miller, [address] [place] [phone] (Wo rk) Social History Tobacco Use Types Packs/Day Years Used Date Smoking Tobacco: Never Assessed Sex Assigned at Date Recorded Not on file documented as of this encounter Plan of Treatment Not on filedocumented as of this encounter Visit Diagnoses Not on filedocumented in this encounter
--- OUTSIDE RECORDS SUMMARY | 2021-11-21 03:05 | XMS_ITS | Encounter Summary ---
:1990 Author Organization [facility] Address [address] [place] [address] Care Team Providers Name Role Phone Wilian Jara M.D. Primary Care Provider Encounter Details Date Type Department Care Team Description 04/08/2014 Hospital Encounter HX [facility]ERGY[facility] Dawit Lawler M.D. [address] [place] [address] (Wo rk) Social History Tobacco Use Types Packs/Day Years Used Date Smoking Tobacco: Never Assessed Sex Assigned at Date Recorded Not on file documented as of this encounter Last Filed Vital Signs Vital Sign Reading Time Taken Comments Blood Pressure 108/78 04/08/2014 3:49 PM DIRECTOR OF PRIMARY CARE Pulse - - Temperature - - Respiratory Rate - - Oxygen Saturation - - Inhaled Oxygen Concentration - - Weight 99.9 kg (220 lb 3.8 oz) 04/08/2014 3:49 PM DIRECTOR OF PRIMARY CARE Height 180 cm (5' 10.87) 04/08/2014 3:49 PM DIRECTOR OF PRIMARY CARE Body Mass Index 30.83 04/08/2014 3:49 PM DIRECTOR OF PRIMARY CARE documented in this encounter Progress Notes Aren Lawler M.D. - 04/08/2014 4:01 PM CST SPACE AND STORAGE CLERK CONFIRMATION OF This patient is a 23 year old LMP 03/03/2014 presents for confirmation of . Pt had a positive home test and wants confirmation. She denies abdominal pain. History: MEDICAL Reviewed with patient SURGICAL Mantoux test: 05/16/11 Myringotomy: 2007 Tonsillectomy: 1997 TONSILLECTOMY - as a child: 04/14/99 [facility] [place] MEDICATIONS multivitamin, : 1 tab(s),PO,Daily ALLERGIES No Known Medication Allergies SOCIAL Date Time: 04/08/2014 15:49 Tobacco: Smoking Status: Former smoker Exposure: Other: Former smoker: quit 03/2014 Alcohol: Use: No Recreational Drugs: Use: None Type: No Results Found FAMILY Grandfather: [place] - Renal cancer Uncle: Kidney stone Grandfather: [place] - Cancer of prostate Review of Systems: Negative unless otherwise noted. REPRODUCTIVE: no menstrual abnormalities, no abnormal vaginal bleeding, no vaginal discharge or pelvic pain Physical Exam: No qualifying data available. BLOOD PRESSURE Systolic Blood Pressure: 108 mmHg Diastolic Blood Pressure: 78 mmHg MEASUREMENTS Height: 180 cm Actual Weight: 99.9 kg Body Mass Index: 30.83 kg/m2 Well nourished, well developed female in NAD. exam. deferred. HCG quant ordered Assessment and Plan:. Positive test for confirmation. Will follow up with ultrasound if HCG above 1500. Electronically Signed By: AREN LAWLER MD On: 04/08/2014 04:04 PM Source: [facility] POWERCHART Document Id: [id number] CTOR OF PRIMARY CARE documented in this encounter Miscellaneous Notes Telephone Encounter - Wilian Sandhu R.N. - 04/26/2014 2:41 PM DIRECTOR OF PRIMARY CARE *Phone Message From: WILIAN SANDHU RN ([facility] Nurse) Sent: 04/26/2014 14:41:48 DIRECTOR OF PRIMARY CARE Subject: *Phone Message Caller is: ( x ) Patient ( ) Mother ( ) Father ( ) Spouse ( ) Daughter ( ) Son ( ) Pharmacy ( ) Other: Physician: Patient MRN #: Reason for Call:Patient inquiry Message: Patient is calling stating she is newly and is struggling with waves of nausea. she is wondering what she can take for nausea. No vomiting. she also states struggling with hard stool and is wondering what she can take for a stool softener. She states last bowel movement was yesterday. Advice/Action: Patient given per women's health: medications considered safe in - patient can try gisella gayathri, gisella tea, Unisom 1/2 tablet am and pm, Vitamin B6-25 mg 3-4 times per day. Patient to call back if no relief or unable to keep down food/fluids for 24 hours. Per Women's health medications considered safe in patient can take docusate sodium for stool softener. pateint to call back if no relief. High fiber diet and increase in fluids. Source used: ( ) Verbalizes understanding of [...] back cell phone number ( ) Source: [facility] POWERCHART Document Id: [id number] Miscellaneous - Jia Coello, L.P.N. - 04/08/2014 3:49 PM CST Adult Machine Cloth Trimmer Intake/History Adult Machine Cloth Trimmer Intake/History Entered On: 04/08/2014 15:51 DIRECTOR OF PRIMARY CARE Performed On: 04/08/2014 15:49 DIRECTOR OF PRIMARY CARE by JIA COELLO LPN Intake Chief Complaint : SPACE AND STORAGE CLERK LMP Date : 03/03/2014 Heart Rhythm : Regular Systolic Blood Pressure : 108 mmHg Diastolic Blood Pressure : 78 mmHg NIBP Mean : 88 mmHg BP Location : Left upper extremity Blood Pressure Cuff Size : Regular Height : 180 cm(Converted to: 5 ft 11 inch(es), 71 inch(es)) Actual Weight : 99.9 kg(Converted to: 220 lb 4 oz) Weight Source : Standing scale Dosing Weight Clinic : 99.9 kg Clinic BSA : 2.23 Body Mass Index : 30.83 kg/m2 JIA COELLO LPN - 04/08/2014 15:49 DIRECTOR OF PRIMARY CARE General Info Information Given By : Patient Languages : French Is Patient Female and 13-50 no hysterectomy : Yes Status : Possible unconfirmed Are you ? : No MARCOSJIA KAUFFMAN [facility] 04/08/2014 15:49 DIRECTOR OF PRIMARY CARE Subjective Pain Symptoms : No JIA COELLO [facility] 04/08/2014 15:49 DIRECTOR OF PRIMARY CARE Dependent Habits Tobacco Use/Currently Using : No Exposure to Tobacco Smoke : Other: Former smoker: quit 03/2014 Smoking Status : Former smoker JIA COELLO [facility] 04/08/2014 15:49 DIRECTOR OF PRIMARY CARE Tobacco Use Grid Type : Cigarettes Cigarette Use Packs/Day : 1 JIA COELLO [facility] - 04/08/2014 15:49 DIRECTOR OF PRIMARY CARE Alcohol Use : No JIA COELLO [facility] 04/08/2014 15:49 DIRECTOR OF PRIMARY CARE Caffeine Use Grid Caffeine Use : None JIA COELLO [facility] 04/08/2014 15:49 DIRECTOR OF PRIMARY CARE Recreational Drug Use Grid Drug Use : None JIA COELLO [facility] 04/08/2014 15:49 DIRECTOR OF PRIMARY CARE ID Screen Drug Resistant Organism : No Travel Within Last 21 Days : No JIA COELLO [facility] - 04/08/2014 15:49 DIRECTOR OF PRIMARY CARE Source: [facility] POWERCHART Document Id: [id number] DIRECTOR OF PRIMARY CARE!42 CTOR OF PRIMARY CARE documented in this encounter Plan of Treatment Not on filedocumented as of this encounter Procedures Procedure Name Priority Date/Time Associated Diagnosis Comme nts BHCG (BETA-HUMAN Routine 04/08/2014 4:04 PM Resul ts for this CHORIONIC DIRECTOR OF PRIMARY CARE procedure are i n GONADOTROPIN), the results AMADO, S section. documented in this encounter Results (ABNORMAL) bHCG (Beta-Human Chorionic Gonadotropin), Quantitative (04/08/2014 4:04 PM DIRECTOR OF PRIMARY CARE) Analysis Performed At Patho logist Time Signature Beta-HCG, 968.4 (H) 0.0 - 2.3 POWERCHART Quantitative, IUL S Comment: Adult Female: Premonopausal, non: <1.0 IU/L Postmenopausal: <7.0 IU/L Specimen (Source) Anatomical Collection Method Collection Time Re ceived Time Location / / Volume Laterality Blood 04/08/2014 4:04 PM DIRECTOR OF PRIMARY CARE Aren Ferreira Obi, M.D. LAB BLOOD ADD-ON Performing Organization Address City/State/ZIP Code Phon e Number POWERCHART documented in this encounter Visit Diagnoses Not on filedocumented in this encounter Care Teams Digital Imager Relationship Specialty Start Date End Date Wilian Jara M.D. PCP - General Family Medicine 10/04/13 [address] [place] [phone] documented as of this encounter
--- OUTSIDE RECORDS SUMMARY | 2021-11-21 03:06 | XMS_ITS | Encounter Summary ---
:1990 Author Organization [facility] Address [address] [place] [address] Care Team Providers Name Role Phone Unavailable Primary Care Provider Unavailable Encounter Details Date Type Department Care Team Description 04/03/2011 Hospital Encounter HX [facility] ME Raj Miller, N.P. [address] [place] [phone] (Wo rk) Social History Tobacco Use Types Packs/Day Years Used Date Smoking Tobacco: Never Assessed Sex Assigned at Date Recorded Not on file documented as of this encounter Progress Notes Sofie Miller, N.P. - 04/03/2011 12:00 AM CST [id number] CHIEF COMPLAINT/REASON FOR VISIT 1. Pain in left middle finger. 2. Headaches. 3. Request for sleep medication. 4. Acne. HISTORY OF PRESENT ILLNESS Cherry is a 20-year-old female who is here today with multiple concerns. Her first concern is regarding her left middle finger. She states that she doesn't recall an injury but she did notice some pain about four days ago and since that time she has had some swelling most notably over the PIP joint. She is right-handed. She does not recall any injury. Never previously injured this finger. She denies any other joint pain. She states that it has not been warm or red. Her range of motion has been limited secondary to the pain and swelling. She is using Tylenol and Ibuprofen with little improvement in her symptoms. Cherry would also like to discuss management of her headaches. She was seen in mid February 2011 and at that time given Imitrex for migraine headaches. She states that when she uses it works maybe 50% of the time for her migraine type headaches. She continues to have these about once a week and almost has a daily headache that she describes more as a frontal headache. The daily headaches are not necessarily associated with any other symptoms. She has not had a recent eye exam. She has stopped taking the Tylenol and Ibuprofen for the most part as previously suggested due to the potential rebound effect. Cherry is also concerned about her continued difficulty with sleep. She states the Ambien been helpful. She has been using this 4 to 5 times a week, it will help her fall asleep but she cannot stay asleep. She is wondering what else she can try. Lastly, Cherry would like something different for her acne. In the past she has tried Minocycline which she is again on daily, BenzaClin gel. This has been somewhat helpful but she continues to have break outs. She also recently had a dry ice scrub. CURRENT MEDICATIONS Medications reviewed. New medication Includes: 1) Differin gel to be applied topically, daily, as directed. ALLERGIES No known drug allergies PAST MEDICAL HISTORY Reviewed. No change. Please see EMR. VITAL SIGNS Temperature: 36.5-degrees Centigrade. Pulse: 76. Respirations: 20. Blood pressure: 112/60. PHYSICAL EXAMINATION IN GENERAL: Cherry is alert, oriented x3, appears in no acute distress. LEFT HAND: Left hand examined with attention to the left middle finger. She does have some soft tissue swelling noted over the PIP. She reports tenderness to palpation of this joint. Cap refill less than three seconds. Range of motion is slightly limited. Sensation is intact. DIAGNOSTICS 1. X-ray of left middle finger is negative for any acute findings. 2. CBC is normal. 3. BMP is normal. 4. Magnesium level is normal. 5. TSH within normal limits. 6. SED rate and Vitamin D are pending at time of dictation. IMPRESSION/REPORT/PLAN IMPRESSION 1. Finger pain and swelling. 2. Headaches. 3. Insomnia. 4. Acne. PLAN 1. In regards to Cherry's finger. I did provider her with a Alumafoam splint that she can wear. Although she does not know an obvious injury it seems reasonable to proceed with conservative treatment which would include bracing, icing and the use of anti-inflammatories. Lab work was drawn today to further investigate her headaches; may also offer a clue as to what else could be causing her finger to be painful. Plan will be to follow up by phone regarding these results once they are all complete. 2. Regards to Cherry's headaches. I will contact her with her results. Suggested she go ahead get an eye exam done as it has been some time. She does have a history of wearing glasses. Due to that the headaches and the sleep issue it may seem reasonable to try something such as Elavil at bedtime to see if this would help her issues. 3. Prescribed Differin. Cherry can use once daily. She can continue with the BenzaClin and the Minocycline and hopefully this will give her her desired effect. Her questions have been addressed. We will follow up by phone regarding her test results. PATIENT EDU #1 Patient Education Ready to learn No apparent learning barriers were identified Learning preferences include listening Explained diagnosis and treatment plan Patient/Child/Caregiver expressed understanding of the content Sofie Miller N.P. /ayan Electronically Signed By: SOFIE MILLER DIRECTOR OF ACADEMIC SUPPORT On: 04/16/2011 04:43 PM Source: [facility] MHSDOLBEYNONRADSYS Document Id: [id number] INSTRUCTOR documented in this encounter Miscellaneous Notes Miscellaneous - Sofie Miller N.P. - 04/03/2011 3:43 PM CST Ambulatory Patient Summary [address] [address] Visit Information Name: CHERRY CHEN Current Date: 04/03/2011 15:43:06 Primary Care Provider: SOFIE MILLER NP Your Medications Here is a list of your medications. It is important to take your medications as directed. Use a pillbox or chart to help remind you to take your medications. Please let your doctor or nurse know if you have problems taking your medications. Medication/Strength Dose Route Frequency Indications/Special Instructions/Comments adapalene topical (Differin 0.1% topical cream) 1 carine Topical once a day (at bedtime) clindamycin-benzoyl peroxide topical (BenzaClin with pump topical gel) 1 carine Topical two times a day zolpidem (Ambien 10 mg oral tablet) 10 mg Oral once a day (at bedtime) as needed for Sleep sumatriptan (Imitrex 50 mg oral tablet) 50 mg Oral once as needed for Migraine headache repeat afterone hour if needed minocycline (minocycline 100 mg oral tablet) 100 mg Oral once a day Acne ipratropium-albuterol (Combivent inhalation aerosol with adapter) 2 puff(s) Inhalation four times a day Reactive airway. albuterol (Ventolin HFA 90 mcg/inh inhalation aerosol) 2 puff(s) Inhalation every 4 hours as needed for Shortness of breath / Wheezing Your Allergies & Intolerances Substance Reaction Symptoms Category Comments NKA Drug Your Problem List Problem Status Onset Comments Left kidney Active 04/14/2003 function 12% date unknown Acne vulgaris Active 02/13/2011 Your Recommendations We want to make sure you get the tests, immunizations, and guidance you need to stay healthy. Here is a customized list of recommendations, based on information we have in your medical record. Your doctor may have additional recommendations for you, based on your personal medical history and risk factors. You can help us by calling us to make an appointment when you are due for your tests. Additional information regarding recommendations: Test/Treatment Last Done Next Due Additional Information Screening Chlamydia every 1 year Females Age 16-24 03/01/2011 02/29/2012 Health Assessment every 1 year 04/03/2011 04/02/2012 Vaccine: Tetanus every 10 years 07/27/2006 07/24/2016 Immunization to help prevent you from getting the serious disease Tetanus (Lockjaw). Your Upcoming Appointments Date Time Location Reason Provider No Appointments found Your Goals/Additional instructions: Source: [facility] POWERCHART Document Id: [id number] INSTRUCTOR Miscellaneous - Sofie Miller NPedroP. - 04/03/2011 3:43 PM CST Ambulatory Depart Summary [address] [address] Visit Information Name: CHERRY CHEN Current Date: 04/03/2011 15:43:05 Physicians Attending Physician: SOFIE MILLER NP Primary Care Provider: SOFIE MILLER NP CHERRY CHEN has been given the following list of medications: Your Medications It is important to take your medications as directed. Use a pill box or chart to help remind you to take your medications. Please let your doctor or nurse know if you have problems taking your medications. Medication/Strength Dose Route Frequency Indications/Special Instructions/Comments adapalene topical (Differin 0.1% topical cream) 1 carine Topical once a day (at bedtime) clindamycin-benzoyl peroxide topical (BenzaClin with pump topical gel) 1 carine Topical two times a day zolpidem (Ambien 10 mg oral tablet) 10 mg Oral once a day (at bedtime) as needed for Sleep sumatriptan (Imitrex 50 mg oral tablet) 50 mg Oral once as needed for Migraine headache repeat afterone hour if needed minocycline (minocycline 100 mg oral tablet) 100 mg Oral once a day Acne ipratropium-albuterol (Combivent inhalation aerosol with adapter) 2 puff(s) Inhalation four times a day Reactive airway. albuterol (Ventolin HFA 90 mcg/inh inhalation aerosol) 2 puff(s) Inhalation every 4 hours as needed for Shortness of breath / Wheezing Additional Information: Yes - Current list of reconciled medications is provided and explained to the patient and/or family, guardian/caregiver. Source: [facility] POWERCHART Document Id: [id number] INSTRUCTOR Miscellaneous - Skip Hopkins L.P.N. - 04/03/2011 3:26 PM CST Health Assessment Health Assessment Entered On: 04/03/2011 15:26 HVAC INSTRUCTOR Performed On: 04/03/2011 15:26 HVAC INSTRUCTOR by SKIP HOPKINS LPN Health Assessment Complete Health Assessment Complete or Modified : Annual Health Assessment Annual Health Assessment Completed : Yes SKIP HOPKINS LPN - 04/03/2011 15:26 HVAC INSTRUCTOR Nutrition Nutrition Risk Factors by History Adult : None SKIP HOPKINS LPN - 04/03/2011 15:26 HVAC INSTRUCTOR Functional Current Daily Living Assistance : None SKIP HOPKINS LPN - 04/03/2011 15:26 HVAC INSTRUCTOR Dependent Habits Tobacco Use/Currently Using : Yes Exposure to Tobacco Smoke : Patient smokes Smoking Status : Current every day smoker HOPKINS, SKIP Antoine LPN - 04/03/2011 15:26 HVAC INSTRUCTOR Tobacco Use Grid Type : Cigarettes Cigarette Use Packs/Day : 0.5 SKIP HOPKINS LPN - 04/03/2011 15:26 HVAC INSTRUCTOR Caffeine Use Grid Caffeine Use : None SKIP HOPKINS LPN - 04/03/2011 15:26 HVAC INSTRUCTOR Recreational Drug Use Grid Drug Use : None SKIP HOPKINS LPN - 04/03/2011 15:26 HVAC INSTRUCTOR Psychosocial Domestic Abuse Concerns : None SKIP HOPKINS LPN - 04/03/2011 15:26 HVAC INSTRUCTOR Advance Directive Advanced Directives : No SKIP HOPKINS LPN - 04/03/2011 15:26 HVAC INSTRUCTOR Educ Needs Learning Style Preference Adult Grid Patient : Demonstration Family : Demonstration SKIP HOPKINS LPN - 04/03/2011 15:26 HVAC INSTRUCTOR Source: [facility] POWERCHART Document Id: [id number] HVAC INSTRUCTOR!30 INSTRUCTOR Miscellaneous - Skip Hopkins LPedroPPedroNPedro - 04/03/2011 3:22 PM CST Adult Electronic Parts Designer Intake/History Adult Electronic Parts Designer Intake/History Entered On: 04/03/2011 15:26 HVAC INSTRUCTOR Performed On: 04/03/2011 15:22 HVAC INSTRUCTOR by SKIP HOPKINS LPN Intake Chief Complaint : Left middle finger painful swollen hurts to bend at the joints. on migraine medications and sleep medications like to change Temperature Core : 36.5C(Converted to: 97.7DegF) Peripheral Pulse Rate : 76/min Respiratory Rate : 20/min Heart Rhythm : Regular Systolic Blood Pressure : 112mmHg Diastolic Blood Pressure : 60mmHg NIBP Mean : 77mmHg BP Location : Right upper extremity Blood Pressure Cuff Size : Large Actual Weight : 98.6kg(Converted to: 217lb 6oz) Weight Source : Standing scale Dosing Weight Clinic : 98.60kg SKIP HOPKINS LPN - 04/03/2011 15:22 HVAC INSTRUCTOR Subjective Pain Symptoms : Yes SKIP HOPKINS LPN - 04/03/2011 15:22 HVAC INSTRUCTOR Pain Pain Assessment Grid Pain 1 Location : Finger (Comment: middle [SKIP HOPKINS LPN - 04/03/2011 15:22 HVAC INSTRUCTOR] ) Laterality : Left Intensity : 7 SKIP HOPKINS LPN - 04/03/2011 15:22 HVAC INSTRUCTOR Dependent Habits Tobacco Use/Currently Using : Yes Tobacco Use/Advised to Quit : Yes Exposure to Tobacco Smoke : Patient smokes Smoking Status : Current every day smoker SKIP HOPKINS LPN - 04/03/2011 15:22 HVAC INSTRUCTOR Tobacco Use Grid Type : Cigarettes Cigarette Use Packs/Day : 0.5 SKIP HOPKINS LPN - 04/03/2011 15:22 HVAC INSTRUCTOR Alcohol Use : No SKIP HOPKINS LPN - 04/03/2011 15:22 HVAC INSTRUCTOR Caffeine Use Grid Caffeine Use : None SKIP HOPKINS LPN - 04/03/2011 15:22 HVAC INSTRUCTOR Recreational Drug Use Grid Drug Use : None SKIP HOPKINS LPN - 04/03/2011 15:22 HVAC INSTRUCTOR Allergy Allergies (Active) NKA Estimated Onset Date: Unspecified ; Created By: SKIP HOPKINS LPN; Reaction Status: Active ; Category: Drug ; Substance: NKA ; Type: Allergy ; Updated By: SKIP HOPKINS LPN; Reviewed Date: 03/01/2011 10:00 HVAC INSTRUCTOR Source: [facility] POWERCHART Document Id: [id number] HVAC INSTRUCTOR!39 INSTRUCTOR documented in this encounter Plan of Treatment Not on filedocumented as of this encounter Visit Diagnoses Not on filedocumented in this encounter
--- OUTSIDE RECORDS SUMMARY | 2021-11-21 03:06 | XMS_ITS | Encounter Summary ---
:1990 Author Organization [facility] Address [address] [place] [address] Care Team Providers Name Role Phone Unavailable Primary Care Provider Unavailable Encounter Details Date Type Department Care Team Description 09/06/2011 Hospital Encounter HX [facility] Forrest Miller, N.P. [address] [place] [phone] (Wo rk) Social History Tobacco Use Types Packs/Day Years Used Date Smoking Tobacco: Never Assessed Sex Assigned at Date Recorded Not on file documented as of this encounter Plan of Treatment Not on filedocumented as of this encounter Visit Diagnoses Not on filedocumented in this encounter
--- OUTSIDE RECORDS SUMMARY | 2021-11-21 03:06 | XMS_ITS | Encounter Summary ---
:1990 Author Organization [facility] Address [address] [place] [address] Care Team Providers Name Role Phone Unavailable Primary Care Provider Unavailable Encounter Details Date Type Department Care Team Description 10/30/[address] [facility] ME Prince Ko III, M.D. [address] [place] [phone] (Wo rk) Social History Tobacco Use Types Packs/Day Years Used Date Smoking Tobacco: Never Assessed Sex Assigned at Date Recorded Not on file documented as of this encounter Last Filed Vital Signs Vital Sign Reading Time Taken Comments Blood Pressure 110/60 10/30/2011 11:09 AM CDT Pulse 72 10/30/2011 11:09 AM CDT Temperature - - Respiratory Rate 14 10/30/2011 11:09 AM CDT Oxygen Saturation - - Inhaled Oxygen Concentration - - Weight 95.1 kg (209 lb 10.5 oz) 10/30/2011 11:09 AM CDT Height - - Body Mass Index - - documented in this encounter Progress Notes Derrick Ko M.D. - 10/30/2011 12:00 AM CDT [id number] IMPRESSION/REPORT/PLAN Acne vulgaris. PLAN The patient has not noticed her period for the last two months. She does have a past history of having an Implanon in place. My concern would be low dose continuous progestin being affected by the Differin. I am going to have her go home and do a test today. She will let us know what those results are as soon as possible. In the meantime, it is appropriate to change her minocycline to amoxicillin given failure of therapy. She will be switched to 500 mg twice daily of amoxicillin. Incidentally, the patient asked me to look in her left ear. She has had issues with it in the past. There is a moderate amount of fluid behind that. She is wondering if she needs a referral on to ENT today. She would like to see if she can see her ENT physician in [place], which I told her she could do, and if she is unable to get in with him I would be happy to have her see Dr. Mackenzie here. Her questions were answered and reassurance was given. CHIEF COMPLAINT/REASON FOR VISIT Discuss acne. HISTORY OF PRESENT ILLNESS Ms. Mazariegos is a 21-year-old white female who was evaluated in the office today for her acne. She has had this for some time now and is currently using Bare Minerals for her daily makeup, Neutrogena Facial Wash for cleansing, ,minocycline as a daily antibiotic, Differin 0.1% topical cream at bedtime for retinoid, and she has a prescription for BenzaClin which she is using twice daily. She has noticed that before she got , which was two years ago, she was using minocycline and had really good results with it. During her she had a significant flare-up of her acne, and since then despite continuing to take her minocycline she has not noticed any improvement and has a breakout today. She is wondering about possible treatment and changing options. SYSTEMS REVIEW Pertinent positives and negative are noted above. The remainder of the complete review of systems are negative. PAST MEDICAL HISTORY 1. Acne. 2. Headaches. 3. Left kidney infection. 4. Tobacco use. CURRENT MEDICATIONS Reviewed and reconciled in [employer]. VITAL SIGNS Pulse 72. Respirations 14. Blood pressure 110/60. Weight 95.1 kg. PHYSICAL EXAMINATION GENERAL: The patient is alert and cooperative. She is in no acute distress at this time. SKIN: Evaluation of her face shows multiple open and closed comedones along the chin and some on her cheek. Her forehead appears to be quite clear. Her back and chest are also clear. Derrick Ko M.D./marcelina Electronically Signed By: DERRICK KO III, MD On: 11/06/2011 07:46 AM Source: [facility] MHSDOLBEYNONRADSYS Document Id: [id number] documented in this encounter Miscellaneous Notes Miscellaneous - Derrick Ko M.D. - 10/30/2011 11:36 AM CDT Ambulatory Patient Summary [place] [id number] [place] [address] Visit Information Name: CHERRY MAZARIEGOS Current Date: 10/30/2011 11:36:50 Physicians Attending Provider: DERRICK KO III, MD Primary Care Provider: SOFIE GARCIA NP Your Medications Here is a list of your medications. It is important to take your medications as directed. Use a pillbox or chart to help remind you to take your medications. Please let your doctor or nurse know if you have problems taking your medications. Medication/Strength Dose Route Frequency Indications/Special Instructions/Comments amoxicillin (amoxicillin 500 mg oral tablet) 500 mg Oral two times a day Acne ibuprofen (ibuprofen 800 mg oral tablet) 800 mg Oral three times a day as needed for Pain Take with food adapalene topical (Differin 0.1% topical cream) 1 carine Topical once a day (at bedtime) clindamycin-benzoyl peroxide topical (BenzaClin with pump topical gel) 1 carine Topical two times a day Attention: If you have any medications at [...] 02/13/2011 Headache Active 2010 Tobacco use Active 09/03/11 unknown date of dx Your Upcoming Appointments Date Time Location Reason Provider No Appointments found Your Goals/Additional instructions: Source: [facility] POWERCHART Document Id: [id number] Miscellaneous - Derrick Ko M.D. - 10/30/2011 11:36 AM CDT Ambulatory Depart Summary [facility] [address] [place] [address] Visit Information Name: CHERRY MAZARIEGOS Visit Date: 10/30/2011 11:36:49 Attending Provider: DERRICK KO III, MD Primary Care Provider: SOFIE GARCIA NP CHERRY MAZARIEGOS has been given the following list of medications: Your Medications It is important to take your medications as directed. Use a pill box or chart to help remind you to take your medications. Please let your doctor or nurse know if you have problems taking your medications. Medication/Strength Dose Route Frequency Indications/Special Instructions/Comments amoxicillin (amoxicillin 500 mg oral tablet) 500 mg Oral two times a day Acne ibuprofen (ibuprofen 800 mg oral tablet) 800 mg Oral three times a day as needed for Pain Take with food adapalene topical (Differin 0.1% topical cream) 1 carine Topical once a day (at bedtime) clindamycin-benzoyl peroxide topical (BenzaClin with pump topical gel) 1 carine Topical two times a day Attention: If you have any medications at home that are not on this list, DO NOT take them until youcontact your provider for clarification. Additional Information: Source: [facility] POWERCHART Document Id: [id number] Miscellaneous - Lexy Mendoza, L.P.N. 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 Intake/History Entered On: 10/30/2011 11:12 CDT Performed On: 10/30/2011 11:09 CDT by LEXY MENDOZA Intake Chief Complaint : discuss acne prescription Peripheral Pulse Rate : 72/min Respiratory Rate : 14/min Heart Rhythm : Regular Systolic Blood Pressure : 110mmHg Diastolic Blood Pressure : 60mmHg NIBP Mean : 77mmHg BP Location : Left upper extremity Blood Pressure Cuff Size : Regular Actual Weight : 95.1kg(Converted to: 209lb 11oz) Weight Source : Standing scale Dosing Weight Clinic : 95.10kg LEXY MENDOZA - 10/30/2011 11:09 CDT Subjective Pain Symptoms : No LEXY MENDOZA 10/30/2011 11:09 CDT Dependent Habits Tobacco Use/Currently Using : Yes Tobacco Use/Advised to Quit : Yes Exposure to Tobacco Smoke : Patient smokes Smoking Status : Current every day smoker LEXY MENDOZA - 10/30/2011 11:09 CDT Tobacco Use Grid Type : Cigarettes Cigarette Use Packs/Day : 0.5 LEXY MENDOZA 10/30/2011 11:09 CDT Caffeine Use Grid Caffeine Use : None LEXY MENDOZA 10/30/2011 11:09 CDT Recreational Drug Use Grid Drug Use : None LEXY MENDOZA 10/30/2011 11:09 CDT Allergy Allergies (Active) NKA Estimated Onset Date: Unspecified ; Created By: SKIP SCHWARTZ LPN; Reaction Status: Active ; Category: Drug ; Substance: NKA ; Type: Allergy ; Updated By: SKIP SCHWARTZ LPN; Reviewed Date: 10/30/2011 11:08 CDT Source: [facility] POWERCHART Document Id: [id number] documented in this encounter Plan of Treatment Not on filedocumented as of this encounter Visit Diagnoses Not on filedocumented in this encounter
--- OUTSIDE RECORDS SUMMARY | 2021-11-21 03:06 | XMS_ITS | Encounter Summary ---
:1990 Author Organization [facility] Address [address] [place] [address] Care Team Providers Name Role Phone Unavailable Primary Care Provider Unavailable Encounter Details Date Type Department Care Team Description 02/13/2011 Hospital Encounter [facility] [place] Prince Ko III, M.D. [address] [place] [phone] (Wo rk) Social History Tobacco Use Types Packs/Day Years Used Date Smoking Tobacco: Never Assessed Sex Assigned at Date Recorded Not on file documented as of this encounter Progress Notes Derrick Ko M.D. - 02/13/2011 12:00 AM CDT [id number] CHIEF COMPLAINT/REASON FOR VISIT Acne. HISTORY OF PRESENT ILLNESS Ms. Chaney is a 20-year-old white female with past medical history significant for breakouts on her face. She has attempted Proactive and other ieor-iml-ntsqlsf creams in the past. She has attempted minocycline in the past which completely clear of her face but she is having problems with us again. She has been out of that medication for several months now. She generally uses a Yris-type face makeup that is a pump. She also occasionally uses a Fiona powder as a foundation. She uses an apricot scrub for her face. She is concerned about her appearance. SYSTEMS REVIEW Patient also has a cyst on her left arm that she states is red and inflamed and painful and approximately 4/10 in intensity. She is wondering if this could be treated. Other pertinent positives and negatives of review of systems are noted in HPI. The remainder of complete review of systems is negative. PAST MEDICAL HISTORY/SURGICAL HISTORY Past medical history of left kidney infection in 2004 and acne vulgaris. VITAL SIGNS Temperature 36.2, pulse 68, respirations 16, blood pressure 102/60, weight 96.1 kg. PHYSICAL EXAMINATION GENERAL: The patient is alert and cooperative. She has no acute distress at this time. HEENT: Evaluation of her face shows both open and closed comedones on the face with some mild pitting suggestive of acne scars. Evaluation of the underside of her arm shows a large 1.5 x 1.5 cm raised cystic-like lesion that is erythematous and inflamed. There appears to be a central pore. IMPRESSION/REPORT/PLAN Acne vulgaris. PLAN: We did cryotherapy to her face using a dry ice scrub. She tolerated this well. Risks and benefits and alternatives of doing this were discussed with her prior to actually performing the procedure. With regard to her cyst, we decided to treat her acne with some minocycline and we will plan on reevaluating the cyst under her arm after approximately 10 days. At that time, will determine whether or not incision and drainage is more appropriate. Her questions were answered and reassurance was given. Derrick Ko III, M.D. / Electronically Signed By: DERRICK KO III, MD On: 03/09/2011 07:44 AM Source: [facility] MHSDOLBEYNONRADSYS Document Id: [id number] MAKER documented in this encounter Miscellaneous Notes Miscellaneous - Derrick Ko M.D. - 02/13/2011 11:40 AM CDT Ambulatory Patient Summary [id number] [place] [address] Visit Information Name: CHERRY CHEN Current Date: 02/13/2011 11:40:19 Primary Care Provider: SOFIE GARCIA NP Your Medications Here is a list of your medications. It is important to take your medications as directed. Use a pillbox or chart to help remind you to take your medications. Please let your doctor or nurse know if you have problems taking your medications. Medication/Strength Dose Route Frequency Indications/Special Instructions/Comments minocycline (minocycline 100 mg oral tablet) 100 mg Oral once a day Acne ipratropium-albuterol (Combivent inhalation aerosol with adapter) 2 puff(s) Inhalation four times a day Reactive airway. sertraline (sertraline 50 mg oral tablet) 50 mg Oral once a day Mild depression and anxiety hydrocodone-chlorpheniramine (Tussionex PennKinetic 10 mg-8 mg/5 mL oral suspension, extended release) 5 mL Oral every 12 hours as needed for cough albuterol (Ventolin HFA 90 mcg/inh inhalation aerosol) 2 puff(s) Inhalation every 4 hours as needed for Shortness of breath / Wheezing clindamycin-benzoyl peroxide topical (BenzaClin with pump topical gel) 1 carine Topical two times a day Your Allergies & Intolerances Substance Reaction Symptoms Category Comments NKA Drug Your Problem List Problem Status Onset Comments Left kidney Active 04/14/2003 function 12% date unknown Your Recommendations We want to make sure [...] Chlamydia every 1 year Females Age 16-24 02/13/2011 Vaccine: Tetanus every 10 years 07/27/2006 07/24/2016 Immunization to help prevent you from getting the serious disease Tetanus (Lockjaw). Your Upcoming Appointments Date Time Location Reason Provider No Appointments found Your Goals/Additional instructions: Source: [facility] POWERCHART Document Id: [id number] Miscellaneous - Derrick Ko M.D. - 02/13/2011 11:40 AM CDT Ambulatory Depart Summary [address] [address] Visit Information Name: CHERRY CHEN Current Date: 02/13/2011 11:40:17 Primary Care Provider: SOFIE GARCIA NP CHERRY CHEN MEENA has been given the following list of medications: Your Medications It is important to take your medications as directed. Use a pill box or chart to help remind you to take your medications. Please let your doctor or nurse know if you have problems taking your medications. Medication/Strength Dose Route Frequency Indications/Special Instructions/Comments minocycline (minocycline 100 mg oral tablet) 100 mg Oral once a day Acne ipratropium-albuterol (Combivent inhalation aerosol with adapter) 2 puff(s) Inhalation four times a day Reactive airway. sertraline (sertraline 50 mg oral tablet) 50 mg Oral once a day Mild depression and anxiety hydrocodone-chlorpheniramine (Tussionex PennKinetic 10 mg-8 mg/5 mL oral suspension, extended release) 5 mL Oral every 12 hours as needed for cough albuterol (Ventolin HFA 90 mcg/inh inhalation aerosol) 2 puff(s) Inhalation every 4 hours as needed for Shortness of breath / Wheezing clindamycin-benzoyl peroxide topical (BenzaClin with pump topical gel) 1 carine Topical two times a day Additional Information: Yes - Current list of reconciled medications is provided and explained to the patient and/or family, guardian/caregiver. Source: [facility] POWERCHART Document Id: [id number] Miscellaneous - Michelle Andrew, L.P.N. 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 Worker Intake/History Adult Antisqueak Worker Intake/History Entered On: 02/13/2011 10:54 CDT Performed On: 02/13/2011 10:49 CDT by MICHELLE ANDREW INSTITUTIONAL CUSTODIAN Intake Chief Complaint : Acne issues, lumps under arm pits, pop and go away and come back Temperature Core : 36.2C(Converted to: 97.2DegF) (LOW) Peripheral Pulse Rate : 68/min Respiratory Rate : 16/min Systolic Blood Pressure : 102mmHg Diastolic Blood Pressure : 60mmHg NIBP Mean : 74mmHg BP Location : Left upper extremity Heart Rhythm : Regular Actual Weight : 96.1kg(Converted to: 211lb 14oz) Weight Source : Standing scale Dosing Weight Clinic : 96.10kg MICHELLE ANDREW LPN - 02/13/2011 10:49 CDT Subjective Pain Symptoms : No MICHELLE ANDREW LPN - 02/13/2011 10:49 CDT Dependent Habits Tobacco Use/Currently Using : Yes Exposure to Tobacco Smoke : Patient smokes Smoking Status : Smoker MICHELLE ANDREW LPN - 02/13/2011 10:49 CDT Tobacco Use Grid Type : Cigarettes Cigarette Use Packs/Day : 0.5 MICHELLE ANDREW LPN - 02/13/2011 10:49 CDT Alcohol Use : Yes MICHELLE ANDREW LPN - 02/13/2011 10:49 CDT Caffeine Use Grid Caffeine Use : None MICHELLE ANDREW LPN - 02/13/2011 10:49 CDT Recreational Drug Use Grid Drug Use : None MICHELLE ANDREW LPN - 02/13/2011 10:49 CDT Allergy Allergies (Active) NKA Estimated Onset Date: Unspecified ; Created By: SKIP SCHWARTZ LPN; Reaction Status: Active ; Category: Drug ; Substance: NKA ; Type: Allergy ; Updated By: SKIP SCHWARTZ LPN; Reviewed Date: 02/13/2011 10:48 CDT [facility] Document Id: [id number] CDT!31 documented in this encounter Plan of Treatment Not on filedocumented as of this encounter Visit Diagnoses Not on filedocumented in this encounter
--- OUTSIDE RECORDS SUMMARY | 2021-11-21 03:06 | XMS_ITS | Encounter Summary ---
:1990 Author Organization [facility] Address [address] [place] [address] Care Team Providers Name Role Phone Unavailable Primary Care Provider Unavailable Encounter Details Date Type Department Care Team Description 06/07/2009 Hospital Encounter HX [facility] INPT/OBSRV Jarred Montes M.D. [address] [place], [place] [address] (Wo rk) Social History Tobacco Use Types Packs/Day Years Used Date Smoking Tobacco: Never Assessed Sex Assigned at Date Recorded Not on file documented as of this encounter Plan of Treatment Not on filedocumented as of this encounter Visit Diagnoses Not on filedocumented in this encounter
--- OUTSIDE RECORDS SUMMARY | 2021-11-21 03:06 | XMS_ITS | Encounter Summary ---
:1990 Author Organization [facility] Address [address] [place] [address] Care Team Providers Name Role Phone Unavailable Primary Care Provider Unavailable Encounter Details Date Type Department Care Team Description 09/08/2008 Hospital Encounter HX [facility] INPT/OBSRV Jarred Montes M.D. [address] [place], [place] [address] (Wo rk) Social History Tobacco Use Types Packs/Day Years Used Date Smoking Tobacco: Never Assessed Sex Assigned at Date Recorded Not on file documented as of this encounter Plan of Treatment Not on filedocumented as of this encounter Visit Diagnoses Not on filedocumented in this encounter
--- OUTSIDE RECORDS SUMMARY | 2021-11-21 03:06 | XMS_ITS | Encounter Summary ---
:1990 [address] [facility] Address [address] [place] [address] Care Team Providers Name Role Phone Unavailable Primary Care Provider Unavailable Encounter Details Date Type Department Care Team Description 04/24/2009 Hospital Encounter HX [facility] Artem Schneider, INPT/OBSRV M.DPedro [address] [place] [phone] (Wo rk) Social History Tobacco Use Types Packs/Day Years Used Date Smoking Tobacco: Never Assessed Sex Assigned at Date Recorded Not on file documented as of this encounter Plan of Treatment Not on filedocumented as of this encounter Visit Diagnoses Not on filedocumented in this encounter
--- OUTSIDE RECORDS SUMMARY | 2021-11-21 03:06 | XMS_ITS | Encounter Summary ---
:1990 Author Organization [facility] Address [address] [place] [address] Care Team Providers Name Role Phone Unavailable Primary Care Provider Unavailable Encounter Details Date Type Department Care Team Description 01/18/2011 Hospital Encounter HX [facility] FAMILY [place] Prince Ko III, M.D. [address] [phone] (Wo rk) Social History Tobacco Use Types Packs/Day Years Used Date Smoking Tobacco: Never Assessed Sex Assigned at Date Recorded Not on file documented as of this encounter Progress Notes Gregorio Ko M.D. - 01/18/2011 12:00 AM CDT [id number] CHIEF COMPLAINT/REASON FOR VISIT Bronchitis and strep. HISTORY OF PRESENT ILLNESS This is a 20-year-old white female with no significant past medical history with the exception of kidney infection in 2003. She comes in today with several complaints. One is that she has had a sore throat in addition to a deep bronchial cough for approximately one month now. She has been on antibiotics that include amoxicillin without change of her symptoms. She has had throat pain that was worse last night than it has been the entire time. She complains of slight shortness of breath. She continues to smoke a half pack of cigarettes a day which may be contributing to this. She denies having sick contacts. Her friends suggested she might have mono given the symptom duration. She has become quite frustrated with her condition. Additionally, the patient states that she has been having some problems with depression and anxiety. She has tried to talk to her family and friends about it but has not been getting much help. Over the last couple weeks she has had decreased interest in the things she normally likes to do. She is feeling a little more depressed and having trouble with sleep. She has had some problems with poor appetite and she states that she feels bad about herself. Additionally, she states that she feels very uptight, nervous, and anxious has trouble with worrying and feels she is worrying too much. She also seems to have a personal sensation that something bad might happen. SYSTEMS REVIEW Pertinent positives and negatives are noted above with the remainder of complete review of systems negative. PAST MEDICAL HISTORY/SURGICAL HISTORY Past medical history of left kidney infection in 2003. VITAL SIGNS Temperature 36.1, pulse 90, respirations 18, blood pressure 106/66. PHYSICAL EXAMINATION GENERAL: The patient is alert and cooperative. She is in no acute distress at this time. HEENT: HEENT examination is negative. Ears are normal and eyes are normal. Nose is normal. Mouth with no hyperemia or exudates of the posterior pharynx. NECK: There is no anterior cervical adenopathy. Thyroid is not palpable or enlarged. LUNGS: Lungs are clear to auscultation bilaterally with some bronchial breath sounds on deep breathing. MENTAL: Patient makes appropriate eye contact. Her speech is not pressured or labored. She does not appear to be anxious today. PHQ9 score is 14, ANNE-7 score is 16. LABORATORY: It was felt that strep screen was appropriate which came back negative and mono screen was also negative. White count was 8.8 but the patient did have a curious elevated absolute lymphocyte count and monocyte count. IMPRESSION/REPORT/PLAN 1. Sore throat. 2. Leukocytosis. 3. Major depressive, single episode, moderate. 4. Generalized anxiety disorder. PLAN: Given the negative results, I still do not feel that antibiotics are appropriate at this time. She does have some cough medicine at home to help with her cough pain. Regarding her depression, we talked about starting a new medication that would likely be Sertraline. She does have a previous prescription for Wellbutrin but she did not like that medication. I explained to her that we should probably consider this or therapy. I did give her the number for Shanell Pineda, local psychologist. She expresses understanding. We will plan on seeing her back in approximately two weeks for followup and at that time consider treatment for depression if not improved. Gregorio Ko III, M.D. / Electronically Signed By: GREGORIO KO III, MD On: 02/10/2011 05:01 PM Source: [facility] MHSDOLBEYNONRADSYS Document Id: [id number] documented in this encounter Miscellaneous Notes Miscellaneous - Gregorio Ko M.D. - 01/18/2011 11:41 AM CDT Ambulatory Patient Summary [address] [place] [address] Visit Information Name: CHERRY CHEN Current Date: 01/18/2011 11:41:37 Primary Care Provider: SOFIE GARCIA NP Your Medications Here is a list of your medications. It is important to take your medications as directed. Use a pillbox or chart to help remind you to take your medications. Please let your doctor or nurse know if you have problems taking your medications. Medication/Strength Dose Route Frequency Indications/Special Instructions/Comments sertraline (sertraline 50 mg oral tablet) 50 [...] Chlamydia every 1 year Females Age 16-24 01/18/2011 Vaccine: Tetanus every 10 years 07/27/2006 07/24/2016 Immunization to help prevent you from getting the serious disease Tetanus (Cristiandelaney). Your Upcoming Appointments Date Time Location Reason Provider No Appointments found Your Goals/Additional instructions: Source: [facility] AvePoint Document Id: [id number] Deepthi - Gregorio Ko M.D. - 01/18/2011 11:41 AM CDT Ambulatory Depart Summary [address] [address] Visit Information Name: CHERRY CHEN Current Date: 01/18/2011 11:41:36 Primary Care Provider: SOFIE GARCIA NP APRILLENINMagali ROBLEDO has been given the following list of medications: Your Medications It is important to take your medications as directed. Use a pill box or chart to help remind you to take your medications. Please let your doctor or nurse know if you have problems taking your medications. Medication/Strength Dose Route Frequency Indications/Special Instructions/Comments sertraline (sertraline 50 mg oral tablet) 50 [...] to the patient and/or family, guardian/caregiver. Source: [facility] Document Id: [id number] Deepthi - Nicci Andrew L.P.N. - 01/18/2011 9:53 AM CDT Health Assessment Health Assessment Entered On: 01/18/2011 9:53 CDT Performed On: 01/18/2011 9:53 CDT by NICCI ANDREW LPN Nutrition Nutrition Risk Factors by History Adult: None NICCI ANDREW LPN - 01/18/2011 9:53 CDT Functional Current Daily Living Assistance: None NICCI ANDREW LPN - 01/18/2011 9:53 CDT Dependent Habits Tobacco Use/Currently Using: Yes Exposure to Tobacco Smoke: Patient smokes NICCI ANDREW LPN - 01/18/2011 9:53 CDT Tobacco Use Grid Type: Cigarettes Cigarette Use Packs/Day: 0.5 NICCI ANDREW LPN - 01/18/2011 9:53 CDT Caffeine Use Grid Caffeine Use: None NICCI ANDREW LPN - 01/18/2011 9:53 CDT Recreational Drug Use Grid Drug Use: None NICCI ANDREW LPN - 01/18/2011 9:53 CDT Psychosocial Domestic Abuse Concerns: None NICCI ANDREW LPN - 01/18/2011 9:53 CDT Advance Directive Advanced Directives: No NICCI ANDREW LPN - 01/18/2011 9:53 CDT Educ Needs Learning Style Preference Adult Grid Patient: None Family: None NICCI ANDREW LPN - 01/18/2011 9:53 CDT Source: [facility] [employer]Point Document Id: [id number] CDT!26 Miscellaneous - Nicci Andrew L.P.NPedro - 01/18/2011 9:49 AM CDT Adult Stem Maker Intake/History Adult Stem Maker Intake/History Entered On: 01/18/2011 9:53 CDT Performed On: 01/18/2011 9:49 CDT by NICCI ANDREW LPN Intake Chief Complaint: Bronchitis x4 wks, done with antibiotics, ST, cough, feels like throat closing Temperature Core: 36.1C(Converted to: 97.0DegF) (LOW) Peripheral Pulse Rate: 90/min Respiratory Rate: 18/min Systolic Blood Pressure: 106mmHg Diastolic Blood Pressure: 66mmHg NIBP Mean: 79mmHg BP Location: Left upper extremity SpO2: 98% Heart Rhythm: Regular Oxygen Therapy: Room air Height: 180.90cm(Converted to: 5ft 11inch(es), 71.22inch(es)) Actual Weight: 97.600kg(Converted to: 215lb 3oz) Weight Source: Standing scale Dosing Weight Clinic: 97.60kg Clinic BSA: 2.21 Body Mass Index: 29.82kg/m2 NICCI ANDREW LPN - 01/18/2011 9:49 CDT Subjective Pain Symptoms: No NICCI ANDREW LPN - 01/18/2011 9:49 CDT Dependent Habits Tobacco Use/Currently Using: Yes Tobacco Use/Advised to Quit: Yes Exposure to Tobacco Smoke: Patient smokes NICCI ANDREW LPN - 01/18/2011 9:49 CDT Tobacco Use Grid Type: Cigarettes Cigarette Use Packs/Day: 0.5 NICCI ANDREW LPN - 01/18/2011 9:49 CDT Alcohol Use: Yes NICCI ANDREW LPN - 01/18/2011 9:49 CDT Caffeine Use Grid Caffeine Use: None NICCI ANDREW LPN - 01/18/2011 9:49 CDT Recreational Drug Use Grid Drug Use: None NICCI ANDREW LPN - 01/18/2011 9:49 CDT Allergy Allergies (Active) NKA Estimated Onset Date: Unspecified ; Created By: SKIP SCHWARTZ LPN; Reaction Status: Active ; Category: Drug ; Substance: NKA ; Type: Allergy ; Updated By: SKIP SCHWARTZ LPN; Reviewed Date: 01/18/2011 9:49 CDT [facility] Document Id: [id number] CDT!36 documented in this encounter Plan of Treatment Not on filedocumented as of this encounter Visit Diagnoses Not on filedocumented in this encounter
--- OUTSIDE RECORDS SUMMARY | 2021-11-21 03:06 | XMS_ITS | Encounter Summary ---
:1990 Author Organization [facility] Address [address] [place] [address] Care Team Providers Name Role Phone Unavailable Primary Care Provider Unavailable Encounter Details Date Type Department Care Team Description 05/30/2010 Hospital Encounter HX [facility] Raj Miller, N.P. [address] [place] [phone] (Wo rk) Social History Tobacco Use Types Packs/Day Years Used Date Smoking Tobacco: Never Assessed Sex Assigned at Date Recorded Not on file documented as of this encounter Progress Notes Sofie Miller, N.P. - 05/30/2010 12:00 AM CST [id number] CHIEF COMPLAINT/REASON FOR VISIT Smoking cessation, depression. HISTORY OF PRESENT ILLNESS Cherry is a 20-year-old female who is here today actually to have her 7-month-old daughter, Omayra evaluated but during Omayra's visit Cherry asked to see if we could prescribe her something different for her smoking cessation. I saw Cherry I believe it was last month and prescribed her Chantix to help with her quitting smoking. She reports that she tried it, but she had very vivid dreaming felt significantly depressed and was unable to continue it after one week. Cherry does also admit that she has had feelings of depression for quite awhile mostly related to the circumstances regarding Omayra's father. She is requesting something different for helping her to quit smoking as well as to help her depressive symptoms. CURRENT MEDICATIONS 1. No routine medications. ALLERGIES 1. No known drug allergies PAST MEDICAL HISTORY Is essentially negative. Physical exam and vital signs were deferred today. IMPRESSION/REPORT/PLAN 1. Tobaccoism. 2. Depression. Plan 1. A prescription for Wellbutrin SR 150 mg written. She is to take one daily for three days then increase to two a day #60 with no refills. I did provide her with a handout on purpose, use and side effects of this medication. My hope is that it will help her quit smoking but also help with her depressive symptoms. 2. I did suggest that she return at a more convenient time that we can more thoroughly examine her depressive symptoms and she seems agreeable to this. She will contact me with any questions or concerns after she starts the Wellbutrin. #1 Patient Education Ready to learn No apparent learning barriers were identified Learning preferences include listening Explained diagnosis and treatment plan Patient expressed understanding of the content Sofie Miller N.P. /karli Electronically Signed By: SOFIE MILLER NP On: 06/01/2010 10:01 Source: [facility] MHSDOLBEYNONRADSYS Document Id: [id number] [employer] documented in this encounter Miscellaneous Notes Miscellaneous - Sofie Miller N.P. - 05/30/2010 8:09 PM CST Ambulatory Patient Summary [facility] - [address] [address] Visit Information Name: CHERRY CHEN Current Date: 05/30/2010 20:09:57 Primary Care Provider: SOFIE MILLER NP Your Medications Here is a list of your medications. It is important to take your medications as directed. Use a pillbox or chart to help remind you to take your medications. Please let your doctor or nurse know if you have problems taking your medications. Medication/Strength Dose Route Frequency Indications/Special Instructions/Comments buPROPion (Wellbutrin SR 150 mg/12 hours oral tablet, sustained release) 150 mg Oral two times a dayTake one daily for three days then increase to 2 a day. Your Allergies & Intolerances Substance Reaction Symptoms Category Comments No Allergies found Your Problem List Problem Status Onset Comments No Problems found Your Recommendations We want to make sure [...] Screening Chlamydia every 1 year Females Age 15-24 05/30/2010 Vaccine: Tetanus every 10 years 05/30/2010 Immunization to help prevent you from getting the seriousdisease Tetanus (Lockjaw). Your Upcoming Appointments Date Time Location Reason Provider No Appointments found Your Goals/Additional instructions: Source: [employer] Document Id: [id number] Miscellaneous - Sofie Miller, N.P. - 05/30/2010 8:09 PM CST Ambulatory Depart Summary [facility] - [address] [address] Visit Information Name: CHERRY CHEN Current Date: 05/30/2010 20:09:56 Primary Care Provider: SOFIE MILLER ONCOLOGY REP CHERRY CHEN has been given the following list of medications: Your Medications It is important to take your medications as directed. Use a pill box or chart to help remind you to take your medications. Please let your doctor or nurse know if you have problems taking your medications. Medication/Strength Dose Route Frequency Indications/Special Instructions/Comments buPROPion (Wellbutrin SR 150 mg/12 hours oral tablet, sustained release) 150 mg Oral two times a dayTake one daily for three days then increase to 2 a day. Additional Information: Yes - Current list of reconciled medications is provided and explained to the patient and/or family, guardian/caregiver. Source: [employer] Document Id: [id number] documented in this encounter Plan of Treatment Not on filedocumented as of this encounter Visit Diagnoses Not on filedocumented in this encounter
--- OUTSIDE RECORDS SUMMARY | 2021-11-21 03:06 | XMS_ITS | Encounter Summary ---
:1990 Author Organization [facility] Address [address] [place] [address] Care Team Providers Name Role Phone Unavailable Primary Care Provider Unavailable Encounter Details Date Type Department Care Team Description 10/20/[address] [facility] INPT/OBSRV Jarred Montes M.D. [address] [place], [place] [address] (Wo rk) Social History Tobacco Use Types Packs/Day Years Used Date Smoking Tobacco: Never Assessed Sex Assigned at Date Recorded Not on file documented as of this encounter Plan of Treatment Not on filedocumented as of this encounter Visit Diagnoses Not on filedocumented in this encounter
--- OUTSIDE RECORDS SUMMARY | 2021-11-21 03:06 | XMS_ITS | Encounter Summary ---
:1990 Author Organization [facility] Address [address] [place] [address] Care Team Providers Name Role Phone Unavailable Primary Care Provider Unavailable Encounter Details Date Type Department Care Team Description 06/09/[address] [facility]OBSRV Jarred Montes M.D. [address] [place], [place] [address] (Wo rk) Social History Tobacco Use Types Packs/Day Years Used Date Smoking Tobacco: Never Assessed Sex Assigned at Date Recorded Not on file documented as of this encounter Plan of Treatment Not on filedocumented as of this encounter Visit Diagnoses Not on filedocumented in this encounter
--- OUTSIDE RECORDS SUMMARY | 2021-11-21 03:06 | XMS_ITS | Encounter Summary ---
:1990 Author Organization [facility] Address [address] [place] [address] Care Team Providers Name Role Phone Unavailable Primary Care Provider Unavailable Encounter Details Date Type Department Care Team Description 02/10/2009 [facility] Provider, Jerry chavez Social History Tobacco Use Types Packs/Day Years Used Date Smoking Tobacco: Never Assessed Sex Assigned at Date Recorded Not on file documented as of this encounter Miscellaneous Notes Miscellaneous - Conversion, Historical Provider Ser - 02/10/2009 12:00 AM CDT [id number] Cherry Mazariegos [address] [place] [address] February 10, 2009 Dear Cherry Mazariegos, APPOINTMENT REMINDER: Our record indicates that it is time for you to be seen for an office visit with a provider of your choice in Gynecology. You may call our office at [phone] to schedule an appointment for a Pap Smear and a colposcopy. Please disregard this notice if you have already made an appointment. Sincerely, [facility] Document Id: [id number] documented in this encounter Plan of Treatment Not on filedocumented as of this encounter Visit Diagnoses Not on filedocumented in this encounter
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
--- OUTSIDE RECORDS SUMMARY | 2021-11-21 03:06 | XMS_ITS | Encounter Summary ---
:1990 Author Organization [facility] Address [address] [place] [address] Care Team Providers Name Role Phone Unavailable Primary Care Provider Unavailable Encounter Details Date Type Department Care Team Description 12/06/2011 Hospital Encounter HX NO MAPPING Gege Escobar P.A.-C. [address] [place], [place] [phone] (Wo rk) Social History Tobacco Use Types Packs/Day Years Used Date Smoking Tobacco: Never Assessed Sex Assigned at Date Recorded Not on file documented as of this encounter Progress Notes Michelle Escobar P.A.-C. - 12/06/2011 6:45 PM CDT [id number] SUBJECTIVE: Presents to Urgent Care today for a 5 day history of right foot pain. She states she walked a long ways in a pair of flip-flops and since that time she has had the pain, no other injury. She has used ibuprofen and Tylenol without significant relief. She tends to wear flip-flops on a daily basis. OBJECTIVE: Alert and cooperative female in no acute distress. Vital signs: Per nursing note. She has tenderness over the plantar lateral surface of her right foot. She has full range of motion of the ankle and movement of her toes. DP pulses are full. ASSESSMENT: Plantar fasciitis. PLAN: Recommend that she purchase a heel stretch, put in and wear in better supportive shoes. She should continue using ibuprofen and rest the foot. No more long walks until asymptomatic. JOE Borges Source: [facility] RWHXTRANSXRTFSYS Document Id: [id number] documented in this encounter Plan of Treatment Not on filedocumented as of this encounter Visit Diagnoses Not on filedocumented in this encounter
--- OUTSIDE RECORDS SUMMARY | 2021-11-21 03:06 | XMS_ITS | Encounter Summary ---
:1990 Author Organization [facility] Address [address] [place] [address] Care Team Providers Name Role Phone Unavailable Primary Care Provider Unavailable Encounter Details Date Type Department Care Team Description 12/22/2010 Hospital Encounter HX [facility] Kristine Moody M.D. [address] [phone] (Wo rk) Social History Tobacco Use Types Packs/Day Years Used Date Smoking Tobacco: Never Assessed Sex Assigned at Date Recorded Not on file documented as of this encounter Progress Notes Kristine Al M.D. - 12/22/2010 12:00 AM CDT [id number] CHIEF COMPLAINT/REASON FOR VISIT Cough and sore throat. HISTORY OF PRESENT ILLNESS The patient is a 20-year-old female who for the past three days has had a productive cough and a sore throat. It is worse today. She denies any fever. She does have a runny nose. She has had a little bit of lower abdominal pain but no nausea, vomiting, or diarrhea. She has multiple sick contacts who have diagnosed with acute bronchitis. Her left ear is also a little bit sore. CURRENT MEDICATIONS Her current medications include the Implanon and BenzaClin topical gel. ALLERGIES No known drug allergies. SYSTEMS REVIEW Review of systems as above. VITAL SIGNS Temperature is 36.4, pulse is 68 beats per minute. Respiratory rate is 18 breaths per minute. Blood pressure is 122/60. Weight is 97.1 kg. PHYSICAL EXAMINATION GENERAL: The patient is alert, oriented, and in no acute distress. HEENT: Normocephalic, atraumatic. Pupils are equal, round, and reactive to light. Right TM is clear with good light reflex. Left TM has some scarring and may have a small effusion but there is no erythema to the membrane. Nasal mucosa is a little bit swollen, more on the left than on the right, and has is some clear nasal discharge. Oral mucosa is moist. Oropharynx is mildly erythematous. There is no exudate. Tonsils are not enlarged. NECK: Supple. No lymphadenopathy. No carotid bruits. CARDIOVASCULAR: Regular, rate, and rhythm. Normal S1 and S2. No murmurs, rubs, or gallops. No jugular venous distention. LUNG: Clear to auscultation bilaterally. No accessory muscle use. ASSESSMENT/PLAN 1. Upper respiratory tract infection. We are going to treat the patient with codeine cough syrup. We also discussed other symptomatic therapy and that this is likely due to a virus. She is to return if she has any further questions or concerns. PATIENT EDUCATION: Ready to learn No apparent learning barriers were identified Learning preferences include listening Explained diagnosis and treatment plan Patient/Child/Caregiver expressed understanding of the content Kristine Templeton M.D. /hong Electronically Signed By: KRISTINE TEMPLETON MD On: 12/24/2010 07:09 AM Source: [facility] MHSDOLBEYNONRADSYS Document Id: [id number] documented in this encounter Miscellaneous Notes Miscellaneous - Kristine lA M.D. - 12/22/2010 11:06 AM CDT Ambulatory Patient Summary [place] [id number] [place] [address] Visit Information Name: CHERRY CHEN Current Date: 12/22/2010 11:06:44 Primary Care Provider: SOFIE GARCIA NP Your Medications Here is a list of your medications. It is important to take your medications as directed. Use a pillbox or chart to help remind you to take your medications. Please let your doctor or nurse know if you have problems taking your medications. Medication/Strength Dose Route Frequency Indications/Special Instructions/Comments codeine-guaifenesin (codeine-guaifenesin 10 mg-100 mg/5 ml oral syrup) 5 mL Oral every 4 hours as needed for cough clindamycin-benzoyl peroxide topical (BenzaClin with pump topical gel) 1 carine Topical two times a day Your Allergies & Intolerances Substance Reaction Symptoms Category Comments NKA Drug Your Problem List Problem Status Onset Comments Left kidney Active 2003 function 12% date unknown Your Recommendations We [...] Chlamydia every 1 year Females Age 16-24 12/22/2010 Vaccine: Tetanus every 10 years 07/27/2006 07/24/2016 Immunization to help prevent you from getting the serious disease Tetanus (Lockjaw). Your Upcoming Appointments Date Time Location Reason Provider No Appointments found Your Goals/Additional instructions: Source: [facility]OWER[facility] Document Id: [id number] Miscellaneous - Kristine Al M.D. - 12/22/2010 11:06 AM CDT Ambulatory Depart Summary [address] [address] Visit Information Name: CHERRY CHEN Current Date: 12/22/2010 11:06:44 Primary Care Provider: SOFIE GARCIA NP CHERRY CHEN has been given the following list of medications: Your Medications It is important to take your medications as directed. Use a pill box or chart to help remind you to take your medications. Please let your doctor or nurse know if you have problems taking your medications. Medication/Strength Dose Route Frequency Indications/Special Instructions/Comments codeine-guaifenesin (codeine-guaifenesin 10 mg-100 mg/5 ml oral syrup) 5 mL Oral every 4 hours as needed for cough clindamycin-benzoyl peroxide topical (BenzaClin with pump topical gel) 1 carine Topical two times a day Additional Information: Yes - Current list of reconciled medications is provided and explained to the patient and/or family, guardian/caregiver. Source: [facility] Document Id: [id number] Miscellaneous - Marycruz Nayak L.P.N. - 12/22/2010 10:17 AM CDT Adult Spare Hand Intake/History Adult Spare Hand Intake/History Entered On: 12/22/2010 10:20 CDT Performed On: 12/22/2010 10:17 CDT by MARYCRUZ TREVINO OPERATIONS AND MAINTENANCE SUPERVISOR Intake Chief Complaint: productive cough for three days Temperature Core: 36.4C(Converted to: 97.5DegF) (LOW) Peripheral Pulse Rate: 68/min Respiratory Rate: 18/min Systolic Blood Pressure: 122mmHg Diastolic Blood Pressure: 60mmHg NIBP Mean: 81mmHg BP Location: Right upper extremity Heart Rhythm: Regular Actual Weight: 97.100kg(Converted to: 214lb 1oz) Weight Source: Standing scale Dosing Weight Clinic: 97.10kg MARYCRUZ TREVINO OPERATIONS AND MAINTENANCE SUPERVISOR - 12/22/2010 10:17 CDT Subjective Pain Symptoms: No MARYCRUZ TREVINO LPN - 12/22/2010 10:17 CDT Dependent Habits Tobacco Use/Currently Using: Yes Tobacco Use/Advised to Quit: Yes Exposure to Tobacco Smoke: Patient smokes MARYCRUZ TREVINO LPN - 12/22/2010 10:17 CDT Tobacco Use Grid Type: Cigarettes Cigarette Use Packs/Day: 0.5 MARYCRUZ TREVINO LPN - 12/22/2010 10:17 CDT Alcohol Use: No MARYCRUZ TREVINO LPN - 12/22/2010 10:17 CDT Caffeine Use Grid Caffeine Use: None MARYCRUZ TREVINO LPN - 12/22/2010 10:17 CDT Recreational Drug Use Grid Drug Use: None MARYCRUZ TREVINO LPN - 12/22/2010 10:17 CDT Allergy Allergies (Active) NKA Estimated Onset Date: Unspecified ; Created By: SKIP SCHWARTZ LPN; Reaction Status: Active ; Category: Drug ; Substance: NKA ; Type: Allergy ; Updated By: SKIP SCHWARTZ LPN; Reviewed Date: 12/05/2010 10:16 CDT Source: [employer] Document Id: [id number] CDT!31 documented in this encounter Plan of Treatment Not on filedocumented as of this encounter Visit Diagnoses Not on filedocumented in this encounter
--- OUTSIDE RECORDS SUMMARY | 2021-11-21 03:06 | XMS_ITS | Encounter Summary ---
:1990 Author Organization [facility] Address [address] [place] [address] Care Team Providers Name Role Phone Unavailable Primary Care Provider Unavailable Encounter Details Date Type Department Care Team Description 12/05/2010 Hospital Encounter HX [facility] Raj Miller, NPedroP. [address] [place] [phone] (Wo rk) Social History Tobacco Use Types Packs/Day Years Used Date Smoking Tobacco: Never Assessed Sex Assigned at Date Recorded Not on file documented as of this encounter Progress Notes Megan Miller, N.P. - 12/05/2010 12:00 AM CDT [id number] CHIEF COMPLAINT/REASON FOR VISIT Difficulty with sleep. HISTORY OF PRESENT ILLNESS Cherry is a 20-year-old female who is here today with concerns about having difficulty with sleep. She reports for the past month she has been having a hard time sleeping. She states it is difficult for her to fall asleep as it has been hard for her to turn her mind off and then wakes up several times during the night. She reports that her sleep has gotten slightly worse over the past week as she miscarried at approximately eight weeks last week. She denies feeling depressed or anxious. She reports that she has had no major changes in her sleep routine. Diane typically goes to bed about 10 o'clock at night and wakes up about seven in morning. She does not take any naps. She does use some minimal caffeine approximate one glass of tea per day. She states she has never really had trouble with sleep before except when she was with her now approximately year and a half old infant. She has been using some pquv-vlc-mkjjvna Benadryl with good results. She denies feeling fatigued during the day. She reports that when she wakes in the morning she does feel rested. CURRENT MEDICATIONS Reviewed. No change. Please see EMR ALLERGIES 1. No known drug allergies. PAST MEDICAL/SURGICAL HISTORY Past medical history is essentially negative but it is noted that she recently miscarried at approximately eight weeks and had a D&C performed. SOCIAL HISTORY Diane has an approximately 97-prfrn-ica infant. She is living with her boyfriend. She is currently not working. She does smoke. No alcohol. No drugs. VITAL SIGNS Temperature is 36.7, pulse 84, respirations 18, blood pressure 110/74, O2 sat 98% room air. PHYSICAL EXAMINATION GENERAL: Diane is alert, oriented x3. She appears in no acute distress. Her affect is appropriate. She does not seem overly anxious or depressed. She is pleasant maintains appropriate eye contact. IMPRESSION/REPORT/PLAN 1. Sleep disturbance PLAN: 1. I have discussed with Diane that I felt it seemed reasonable for her to continue with the Benadryl at this point in time. It has been working well for her and I do wonder if there has been somewhat of a hormonal component to her difficulty with sleep. I would suggest that she continue with her current sleep routine, take Benadryl as needed for sleep, and then follow-up with the clinic over the next two to four weeks if her sleep trouble is not improving. 2. We also discussed instead of the Benadryl she may take an dnta-bqd-kolaaoe supplement called melatonin. 3. More than 15 minutes was spent with Diane today with the entire time of that being in consultation. If her sleep symptoms do not improve over the next two to four weeks, she certainly can follow up with clinic. Her questions have been addressed and she is agreeable to this plan of care. PATIENT EDUCATION: Ready to learn No apparent learning barriers were identified Learning preferences include listening Explained diagnosis and treatment plan Patient/Child/Caregiver expressed understanding of the content Megan Miller N.P. /hong Electronically Signed By: MEGAN MILLER NP On: 12/10/2010 09:40 AM [facility] Document Id: [id number] documented in this encounter Miscellaneous Notes Miscellaneous - Megan Miller N.P. - 12/05/2010 1:39 PM CDT Ambulatory Patient Summary [id number] [place] [address] Visit Information Name: CHERRY MAZARIEGOS Current Date: 12/05/2010 13:39:16 Primary Care Provider: MEGAN MILLER ELECTRON BEAM WELDER Your Medications Here is a list of your medications. It is important to take your medications as directed. Use a pillbox or chart to help remind you to take your medications. Please let your doctor or nurse know if you have problems taking your medications. Medication/Strength Dose Route Frequency Indications/Special Instructions/Comments clindamycin-benzoyl peroxide topical (BenzaClin with pump topical [...] Chlamydia every 1 year Females Age 16-24 12/05/2010 Vaccine: Tetanus every 10 years 07/27/2006 07/24/2016 Immunization to help prevent you from getting the serious disease Tetanus (Lockjaw). Your Upcoming Appointments Date Time Location Reason Provider No Appointments found Your Goals/Additional instructions: Source: [facility] POWERCHART Document Id: [id number] Electronically signed by [facility] Embedded Developer [id number] at 09/15/2016 11:17 PM CDT Miscellaneous - Megan Miller N.P. - 12/05/2010 1:39 PM CDT Ambulatory Depart Summary [facility] [address] [place] [address] Visit Information Name: CHERRY MAZARIEGOS Current Date: 12/05/2010 13:39:16 Primary Care Provider: MEGAN MILLER NP CHERRY MAZARIEGOS has been given the following list of medications: Your Medications It is important to take your medications as directed. Use a pill box or chart to help remind you to take your medications. Please let your doctor or nurse know if you have problems taking your medications. Medication/Strength Dose Route Frequency Indications/Special Instructions/Comments clindamycin-benzoyl peroxide topical (BenzaClin with pump topical gel) 1 carine Topical two times a day Additional Information: Yes - Current list of reconciled medications is provided and explained to the patient and/or family, guardian/caregiver. Source: [facility] POWERCHART Document Id: [id number] Miscellaneous - Kaylee Mazariegos, LPedroPPedroN. - 12/05/2010 10:18 AM CDT Health Assessment Health Assessment Entered On: 12/05/2010 10:18 CDT Performed On: 12/05/2010 10:18 CDT by KAYLEE MAZARIEGOS LPN Nutrition Nutrition Risk Factors by History Adult: None KAYLEE MAZARIEGOS LPN - 12/05/2010 10:18 CDT Functional Current Daily Living Assistance: None KAYLEE MAZARIEGOS LPN - 12/05/2010 10:18 CDT Dependent Habits Tobacco Use/Currently Using: Yes Exposure to Tobacco Smoke: Patient smokes KAYLEE MAZARIEGOS LPN - 12/05/2010 10:18 CDT Tobacco Use Grid Type: Cigarettes Cigarette Use Packs/Day: 0.5 KAYLEE MAZARIEGOS LPN - 12/05/2010 10:18 CDT Caffeine Use Grid Caffeine Use: None KAYLEE MAZARIEGOS LPN - 12/05/2010 10:18 CDT Recreational Drug Use Grid Drug Use: None KAYLEE MAZARIEGOS LPN - 12/05/2010 10:18 CDT Psychosocial Domestic Abuse Concerns: None KAYLEE MAZARIEOGS LPN - 12/05/2010 10:18 CDT Advance Directive Advanced Directives: No KAYLEE MAZARIEGOS LPN - 12/05/2010 10:18 CDT Educ Needs Learning Style Preference Adult Grid Patient: Demonstration Family: Redd KAYLEE MAZARIEGOS LPN - 12/05/2010 10:18 CDT Source: [facility] Livemap Document Id: [id number] CDT!26 Miscellaneous - Kaylee Mazariegos, L.P.N. - 12/05/2010 10:16 AM CDT Adult Converter Supervisor Intake/History Adult Converter Supervisor Intake/History Entered On: 12/05/2010 10:18 CDT Performed On: 12/05/2010 10:16 CDT by KAYLEE MAZARIEGOS LPN Intake Chief Complaint: having diff, sleeping Onset of Symptoms: 1 month Temperature Core: 36.7C(Converted to: 98.1DegF) Peripheral Pulse Rate: 84/min Respiratory Rate: 18/min Systolic Blood Pressure: 110mmHg Diastolic Blood Pressure: 74mmHg NIBP Mean: 86mmHg BP Location: Right upper extremity SpO2: 98% Heart Rhythm: Regular Oxygen Therapy: Room air KAYLEE MAZARIEGOS [facility] - 12/05/2010 10:16 CDT Subjective Pain Symptoms: No KAYLEE MAZARIEGOS FINANCE PROFESSIONAL - 12/05/2010 10:16 CDT Dependent Habits Tobacco Use/Currently Using: Yes Exposure to Tobacco Smoke: Patient smokes KAYLEE MAZARIEGOS [facility] - 12/05/2010 10:16 CDT Tobacco Use Grid Type: Cigarettes Cigarette Use Packs/Day: 0.5 KAYLEE MAZARIEGOS [facility] - 12/05/2010 10:16 CDT Alcohol Use: Yes KAYLEE MAZARIEGOS FINANCE PROFESSIONAL - 12/05/2010 10:16 CDT Caffeine Use Grid Caffeine Use: None KAYLEE MAZARIEGOS LPN - 12/05/2010 10:16 CDT Recreational Drug Use Grid Drug Use: None KAYLEE MAZARIEGOS FINANCE PROFESSIONAL - 12/05/2010 10:16 CDT Allergy Allergies (Active) NKA Estimated Onset Date: Unspecified ; Created By: SKIP SCHWARTZ LPN; Reaction Status: Active ; Category: Drug ; Substance: NKA ; Type: Allergy ; Updated By: SKIP SCHWARTZ LPN; Reviewed Date: 12/05/2010 10:16 CDT [facility] Document Id: [id number] CDT!30 documented in this encounter Plan of Treatment Not on filedocumented as of this encounter Visit Diagnoses Not on filedocumented in this encounter
--- OUTSIDE RECORDS SUMMARY | 2021-11-21 03:06 | XMS_ITS | Encounter Summary ---
:1990 Author Organization [facility] Address [address] [place] [address] Care Team Providers Name Role Phone Unavailable Primary Care Provider Unavailable Encounter Details Date Type Department Care Team Description 07/31/2011 Hospital Encounter [facility] ME Flora Villa P.A.-C. [address] [place] [address] (Wo rk) Social History Tobacco Use Types Packs/Day Years Used Date Smoking Tobacco: Never Assessed Sex Assigned at Date Recorded Not on file documented as of this encounter Last Filed Vital Signs Vital Sign Reading Time Taken Comments Blood Pressure 110/60 07/31/2011 11:27 AM CDT Pulse 72 07/31/2011 11:27 AM CDT Temperature - - Respiratory Rate 16 07/31/2011 11:27 AM CDT Oxygen Saturation - - Inhaled Oxygen Concentration - - Weight 96.8 kg (213 lb 6.5 oz) 07/31/2011 11:27 AM CDT Height - - Body Mass Index - - documented in this encounter Progress Notes Edita Villa - 07/31/2011 12:00 AM CDT [id number] CHIEF COMPLAINT/REASON FOR VISIT This is a 21-year-old female seen today concerned that she may be . She states that she miscarried last November. She had Implanon placed in the end of November or beginning of December and has had it since then. She has not had any problems with it. She can still feel it in place in her left arm. However, over the last week she has been feeling symptoms of . She had has been quite a bit more tired. She has been a little bit nauseous. She states that she has had some odd cravings. She has been waking up eating at night. She has been having unprotected sex thinking that she was protected with the Implanon. She has not done a test yet at home but just feels like she could possibly be and would like to double check. She does get very random bleeding with the Implanon in place. She states that her last bleeding ended about a month ago. The first few days of it were quite heavy, but then she continued to spot for at least two weeks. She does not have any sort of regular pattern with her periods. Sometimes they are heavy and last a few days. Sometimes they are spotting and last for a couple of weeks. CURRENT MEDICATIONS BenzaClin and Differin topical creams. ALLERGIES No known drug allergies. PAST MEDICAL/SURGICAL HISTORY Past medical history and surgical history are reviewed in the EMR. VITAL SIGNS Temperature is 36.3. Heart rate 72. Respirations 16. Blood pressure 110/60. PHYSICAL EXAMINATION GENERAL: She is alert, interactive and cooperative. She appears to be well nourished and well hydrated in no acute distress. HEART: Regular rate and rhythm. LUNGS: Clear to auscultation bilaterally. DIAGNOSTICS Urine test was done and came back negative. IMPRESSION/REPORT/PLAN Fatigue, nausea. PLAN I discussed with Cherry that it is possible that she is just fighting a viral infection at this time. She has also had a little bit of stuffy nose, she states. I did discuss that with her unreliable menstrual history it is difficult to determine looking at her dates if she is still feeling symptoms similar to this within the next week or two I would suggest doing a home test or returning here for a follow-up test. Hopefully her symptoms will resolve in the next couple of days. Patient Education Ready to learn No apparent learning barriers were identified Learning preferences include listening Explained diagnosis and treatment plan Patient/Child/Caregiver expressed understanding of the content Edita Villa P.A.-C / Electronically Signed By: EDITA VILLA On: 08/03/2011 08:24 AM Source: [facility] MHSDOLBEYNONRADSYS Document Id: [id number] documented in this encounter Miscellaneous Notes Miscellaneous - Edita Villa - 07/31/2011 12:15 PM CDT Ambulatory Patient Summary [address] [address] Visit Information Name: CHERRY CHEN Current Date: 07/31/2011 12:15:24 Physicians Attending Provider: EDITA VILLA Primary Care Provider: SOFIE GARCIA NP Your [...] 02/13/2011 Headache Active 2010 Tobacco use Active Your Upcoming Appointments Date Time Location Reason Provider No Appointments found Your Goals/Additional instructions: Source: [facility] POWERCHART Document Id: [id number] Miscellaneous - Edita Villa - 07/31/2011 12:15 PM CDT Ambulatory Depart Summary [address] [address] Visit Information Name: CHERRY CHEN Visit Date: 07/31/2011 12:15:24 Attending Provider: EDITA VILLA Primary Care Provider: SOFIE GARCIA NP CHERRY [...] your provider for clarification. Additional Information: Source: [facility] POWERCHART Document Id: [id number] Miscellaneous - Lexy Mendoza, HailyPPedroNPedro - 07/31/2011 11:27 AM CDT Adult Power Press Tender Intake/History Adult Power Press Tender Intake/History Entered On: 07/31/2011 11:30 CDT Performed On: 07/31/2011 11:27 CDT by LEXY MENDOZA Intake Chief Complaint : has the implanon in but for the last week has been nauseated, food cravings and fatigue. Temperature Core : 36.3C(Converted to: 97.3DegF) (LOW) Peripheral Pulse Rate : 72/min Respiratory Rate : 16/min Heart Rhythm : Regular Systolic Blood Pressure : 110mmHg Diastolic Blood Pressure : 60mmHg NIBP Mean : 77mmHg BP Location : Right upper extremity Blood Pressure Cuff Size : Regular Actual Weight : 96.8kg(Converted to: 213lb 7oz) Weight Source : Standing scale Dosing Weight Clinic : 96.80kg LEXY MENDOZA - 07/31/2011 11:27 CDT Subjective Pain Symptoms : No LEXY MENDOZA - 07/31/2011 11:27 CDT Dependent Habits Tobacco Use/Currently Using : Yes Tobacco Use/Advised to Quit : Yes Exposure to Tobacco Smoke : Patient smokes Smoking Status : Smoker LEXY MENDOZA - 07/31/2011 11:27 CDT Tobacco Use Grid Type : Cigarettes Cigarette Use Packs/Day : 0.5 LEXY MENDOZA - 07/31/2011 11:27 CDT Caffeine Use Grid Caffeine Use : None LEXY MENDOZA - 07/31/2011 11:27 CDT Recreational Drug Use Grid Drug Use : None LEXY MENDOZA - 07/31/2011 11:27 CDT Allergy Allergies (Active) NKA Estimated Onset Date: Unspecified ; Created By: SKIP SCHWARTZ LPN; Reaction Status: Active ; Category: Drug ; Substance: NKA ; Type: Allergy ; Updated By: SKIP SCHWARTZ LPN; Reviewed Date: 06/20/2011 12:38 EDUCATION ANALYST Source: [facility] POWERCHART Document Id: [id number] CDT!32 documented in this encounter Plan of Treatment Not on filedocumented as of this encounter Procedures Procedure Name Priority Date/Time Associated Diagnosis Comme nts TEST, U Routine 07/31/2011 11:51 AM Res ults for this CDT procedure are i n the results section. documented in this encounter Results Test, Qualitative, Urine (07/31/2011 11:51 AM CDT) [facility] gist Method Time Signature HXBeta-hCG Negative POWERCHART Qualitative Urine Specimen (Source) Anatomical Collection Method Collection Time Re ceived Time Location / / Volume Laterality Urine 07/31/2011 11:51 AM CDT Edita Villa P.A.-C. LAB URINE ORDERABLES Performing Organization Address City/State/ZIP Code Phon e Number POWERCHART documented in this encounter Visit Diagnoses Not on filedocumented in this encounter
--- OUTSIDE RECORDS SUMMARY | 2021-11-21 03:06 | XMS_ITS | Encounter Summary ---
:1990 Author Organization [facility] Address [address] [place] [address] Care Team Providers Name Role Phone Unavailable Primary Care Provider Unavailable Encounter Details Date Type Department Care Team Description 03/23/2009 Hospital En[facility] INPT/OBSRV Jarred Montes M.D. [address] [place], [place] [address] (Wo rk) Social History Tobacco Use Types Packs/Day Years Used Date Smoking Tobacco: Never Assessed Sex Assigned at Date Recorded Not on file documented as of this encounter Plan of Treatment Not on filedocumented as of this encounter Visit Diagnoses Not on filedocumented in this encounter
--- OUTSIDE RECORDS SUMMARY | 2021-11-21 03:06 | XMS_ITS | Encounter Summary ---
:1990 Author Organization [facility] Address [address] [place] [address] Care Team Providers Name Role Phone Unavailable Primary Care Provider Unavailable Encounter Details Date Type Department Care Team Description 04/15/2010 Hospital Encounter [facility] INPT/OBSRV Santino Torres Jr., M.D. [address] [place], [place] [address] (Wo rk) Social History Tobacco Use Types Packs/Day Years Used Date Smoking Tobacco: Never Assessed Sex Assigned at Date Recorded Not on file documented as of this encounter Plan of Treatment Not on filedocumented as of this encounter Visit Diagnoses Not on filedocumented in this encounter
--- OUTSIDE RECORDS SUMMARY | 2021-11-21 03:06 | XMS_ITS | Encounter Summary ---
:1990 Author Organization [facility] Address [address] [place] [address] Care Team Providers Name Role Phone Unavailable Primary Care Provider Unavailable Encounter Details Date Type Department Care Team Description 04/17/2010 Hospital En[facility] INPT/OBSRV China Miller, N.[address] [place] [phone] (Wo rk) Social History Tobacco Use Types Packs/Day Years Used Date Smoking Tobacco: Never Assessed Sex Assigned at Date Recorded Not on file documented as of this encounter Plan of Treatment Not on filedocumented as of this encounter Visit Diagnoses Not on filedocumented in this encounter
--- OUTSIDE RECORDS SUMMARY | 2021-11-21 03:06 | XMS_ITS | Encounter Summary ---
:1990 Author Organization [facility] Address [address] [place] [address] Care Team Providers Name Role Phone Unavailable Primary Care Provider Unavailable Encounter Details Date Type Department Care Team Description 08/20/2010 Hospital Encounter HX [facility] Audra Montgomery M.D . Social History Tobacco Use Types Packs/Day Years Used Date Smoking Tobacco: Never Assessed Sex Assigned at Date Recorded Not on file documented as of this encounter Miscellaneous Notes Miscellaneous - Audra Montgomery M.D. - 08/20/2010 11:53 AM CDT Results Notification Document Contains Addenda Addendum by SKIP SCHWARTZ LPN on 20 Aug 2010 11:57:24 CDT Patient called and updated From: AUDRA MONTGOMERY MD To: KEVIN ORELLANA Sent: 08/20/2010 11:53:03 CDT ! Show up: 08/20/2010 11:52:00 CDT Subject: Results Notification Actions: Notify patient of results Due Date/Time: 08/20/2010 11:52:00 CDT Source: [facility] POWERCHART Document Id: [id number] Electronically signed by Shi [facility] [employer] Principal [id number] at 09/15/2016 7:33 PM CDT documented in this encounter Plan of Treatment Not on filedocumented as of this encounter Visit Diagnoses Not on filedocumented in this encounter
--- OUTSIDE RECORDS SUMMARY | 2021-11-21 03:06 | XMS_ITS | Encounter Summary ---
:1990 Author Organization [facility] Address [address] [place] [address] Care Team Providers Name Role Phone Unavailable Primary Care Provider Unavailable Encounter Details Date Type Department Care Team Description 04/15/2010 Hospital Encounter [facility] INPT/OBSRV Santino Torres Jr., M.D. [address] [place], [place] [address] (Wo rk) Social History Tobacco Use Types Packs/Day Years Used Date Smoking Tobacco: Never Assessed Sex Assigned at Date Recorded Not on file documented as of this encounter Plan of Treatment Not on filedocumented as of this encounter Visit Diagnoses Not on filedocumented in this encounter
--- OUTSIDE RECORDS SUMMARY | 2021-11-21 03:06 | XMS_ITS | Encounter Summary ---
:1990 Author Organization [facility] Address [address] [place] [address] Care Team Providers Name Role Phone Unavailable Primary Care Provider Unavailable Encounter Details Date Type Department Care Team Description 11/05/2009 Hospital Encounter HX NO MAPPING Fred Pineda M.D. [address] [place], [place] [phone] (Wo rk) Social History Tobacco Use Types Packs/Day Years Used Date Smoking Tobacco: Never Assessed Sex Assigned at Date Recorded Not on file documented as of this encounter Progress Notes Fred Pineda M.D. - 11/05/2009 9:45 AM CDT [id number] SUBJECTIVE: Cherry Mazariegos who presents with left ear pain for 3 day(s). Severity: severe Timing:sudden onset and she had a milder er infection two weeks ago that the doctor treated with amoxicillin however she only took the antibiotic for two days then quit because she felt better. Now it has come back. She also has a tragus piercing that is somewhat new and seems to be very swollen Additional symptoms include ear pain and fever. History of recurrent otitis: yes History reviewed. No pertinent past medical history. Current outpatient prescriptions Medication Sig AMOXICILLIN None Entered SEPTRA DS 800-160 MG PO TABS ONE TABLET TWICE DAILY CORTISPORIN 3.5-42270-1 OT SUSP 4 DROPS IN AFFECTED EAR CANAL 4 TIMES A DAY ALBUTEROL IN None Entered Allergies Allergen Reactions Nkda (No Known Drug Allergies) History Substance Use Topics Tobacco Use: Yes -- 0.5 packs/day Alcohol Use: Not on file ROS: CONSTITUTIONAL:POSITIVE for fever 102 EYES: NEGATIVE for vision changes or irritation RESP:NEGATIVE for significant cough or SOB CV: NEGATIVE for chest pain, palpitations or peripheral edema GI: NEGATIVE for nausea, abdominal pain, heartburn, or change in bowel habits Review of systems negative except as stated above. OBJECTIVE: BP 133/79 Pulse 95 Temp(Src) 98.4 ??F (36.9 ??C) (Temporal) SpO2 100% EXAM: The right TM is normal: no effusions, no erythema, and normal landmarks The right auditory canal is normal and without drainage, edema or erythema The left TM is Not able to be seen due to swelling The left auditory canal is erythematous, swollen and tender Oropharynx exam is normal: no lesions, erythema, adenopathy or exudate. GENERAL: no acute distress EYES: EOMI, PERRL, conjunctiva clear NECK: supple, non-tender to palpation, no adenopathy noted RESP: lungs clear to auscultation - no rales, rhonchi or wheezes CV: regular rates and rhythm, normal S1 S2, no murmur noted SKIN: no suspicious lesions or rashes Cherry was seen today for ear problem. Diagnoses and associated orders for this visit: Otitis externa - CORTISPORIN 3.5-49572-9 OT SUSP; 4 DROPS IN AFFECTED EAR CANAL 4 TIMES A DAY Otitis media treated with antibiotics in the past 60 days - SEPTRA DS 800-160 MG PO TABS; ONE TABLET TWICE DAILY Other Orders - AMOXICILLIN; None Entered I removed her tragus piercing on the left ear as well to facilitate healing. Follow up plan:Return to clinic earlier if symptoms worsen or new problems arise. Source: [facility] [email or web address] Document Id: [id number] documented in this encounter Plan of Treatment Not on filedocumented as of this encounter Visit Diagnoses Not on filedocumented in this encounter
--- OUTSIDE RECORDS SUMMARY | 2021-11-21 03:06 | XMS_ITS | Encounter Summary ---
:1990 Author Organization [facility] Address [address] [place] [address] Care Team Providers Name Role Phone Unavailable Primary Care Provider Unavailable Encounter Details Date Type Department Care Team Description 09/06/2011 Hospital Encounter HX [facility] Raj Miller, N.P. [address] [place] [phone] (Wo rk) Social History Tobacco Use Types Packs/Day Years Used Date Smoking Tobacco: Never Assessed Sex Assigned at Date Recorded Not on file documented as of this encounter Last Filed Vital Signs Vital Sign Reading Time Taken Comments Blood Pressure 110/60 09/06/2011 11:18 AM CDT Pulse 87 09/06/2011 11:18 AM CDT Temperature - - Respiratory Rate 18 09/06/2011 11:18 AM CDT Oxygen Saturation - - Inhaled Oxygen Concentration - - Weight 94.7 kg (208 lb 12.4 oz) 09/06/2011 11:18 AM CDT Height - - Body Mass Index - - documented in this encounter Progress Notes Sofie Miller, N.P. - 09/06/2011 12:00 AM CDT [id number] CHIEF COMPLAINT/REASON FOR VISIT Abdominal pain. HISTORY OF PRESENT ILLNESS Cherry is a 21-year-old female who is here today with complaints of abdominal pain. She was actually seen by me earlier this week on September 02. At that time she had approximately a four to five day history of just nausea. Workup at that time included some labs and x-ray. She did have some stool in her colon and it was recommended she take some stool softeners and laxatives to see if this would resolve the nausea. Cherry reports that since that visit she did take some Milk of Magnesia and feels as though her bowels cleaned out appropriately. However, for the past 36 hours she has had some pretty significant sharp intermittent abdominal pain that goes down the sides of her abdomen. She states the pain is so bad that it brings her to her knees. She stated it also woke her up again this morning at approximately 3:00 in the morning and she is unable to return to sleep. She has had no fever. No nausea, no vomiting, and no urinary discomfort. She denies any recent alcohol intake. She continues to have some vaginal bleeding which she thinks is her period which has been irregular since having the Implanon placed. CURRENT MEDICATIONS Reviewed. New prescriptions today include ibuprofen 800 mg one three times daily as needed for pain, Vicodin 5/500 one to two every six hours as needed for severe pain, and Zofran 8 mg one every eight hours as needed for nausea. ALLERGIES No known drug allergies. PAST MEDICAL/SURGICAL HISTORY Reviewed and unchanged. Please see EMR. VITAL SIGNS Temperature 36.6. Pulse 87. Respirations 18. Blood pressure 110/68. Oxygen saturation is 98% on room air. Pain is 10/10. PHYSICAL EXAMINATION GENERAL: Cherry is alert and oriented x3. She appears in no acute distress. HEART: Heart rate is regular. S1, S2 is present. No murmur or rub. LUNGS: Clear to auscultation. ABDOMEN: Soft, nondistended. Bowel sounds are present x4 and normoactive. She reports generalized tenderness throughout the left upper and lower quadrants. No specific tenderness is noted and no costovertebral angle tenderness. DIAGNOSTICS 1. Complete blood count shows a white count that is mildly elevated at 12.2. 2. Urinalysis that was completed after CT exam shows 3+ blood and 5-10 red blood cells on microscopic. No evidence of infection. 3. CT of the abdomen and pelvis with contrast shows a small amount of fluid in the pelvis and bilateral ovarian cysts which could should be physiologic. Mild of the left kidney, likely due to the patient's history of reflux. Mild sigmoid diverticulosis without diverticulitis. Appendix was normal. IMPRESSION/REPORT/PLAN Abdominal pain. Concern for kidney stone. PLAN I reviewed all the diagnostic findings with Cherry today. At this time it is still very difficult to know exactly what is causing her pain, and I expressed this to her. We discussed that she may have a kidney stone that could be causing some of her symptoms, though it is difficult to know if the blood in her urine is entirely from the urinary system and not from her menstrual cycle. We opted to go ahead and treat her as if she did have a stone, and prescriptions for ibuprofen, Vicodin and Zofran were written. I have stressed the importance of drinking large amounts of fluids. She is return over the weekend if her symptoms are worsening or if they are not resolving. Cherry's questions have been addressed. We also gave her 30 mg of Toradol IV prior to the IV being removed after CT which seemed to reduce her pain. Patient Education Ready to learn No apparent learning barriers were identified Learning preferences include listening Explained diagnosis and treatment plan Patient/Child/Caregiver expressed understanding of the content Sofie Miller N.P. / Electronically Signed By: SOFIE MILLER MUTUAL FUNDS AGENT On: 09/10/2011 11:05 AM Source: [facility] MHSDOLBEYNONRADSYS Document Id: [id number] documented in this encounter Procedure Notes Kaylee Mazariegos L.P.N. - 09/06/2011 3:14 PM CDT Peripheral IV Peripheral IV Entered On: 09/06/2011 15:16 CDT Performed On: 09/06/2011 15:14 CDT by KAYLEE MAZARIEGOS LPN Peripheral IV Peripheral IV Assess/Intervention Grid Peripheral IV #1 IV Activity : Discontinue IV Site : Radial Laterality : Right Site Condition : No complications Comments (Comment: catheter was intact [KAYLEE MAZARIEGOS LPN - 09/06/2011 15:14 CDT] ) KAYLEE MAZARIEGOS LPN - 09/06/2011 15:14 CDT Source: [facility] POWERCHART Document Id: [id number]!8 documented in this encounter Miscellaneous Notes Miscellaneous - Sofie Miller, N.P. - 09/06/2011 3:31 PM CDT Ambulatory Patient Summary [place] [id number] [place] [address] Visit Information Name: CHERRY MAZARIEGOS Current Date: 09/06/2011 15:31:44 Physicians Attending Provider: SOFIE MILLER NP Primary Care Provider: SOFIE MILLER MUTUAL FUNDS AGENT Your Medications Here is a list of your medications. It is important to take your medications as directed. Use a pillbox or chart to help remind you to take your medications. Please let your doctor or nurse know if you have problems taking your medications. Medication/Strength Dose Route Frequency Indications/Special Instructions/Comments ondansetron (Zofran 8 mg oral tablet) 8 mg Oral every 8 hours as needed for Nausea hydrocodone-acetaminophen (Vicodin 5 mg-500 mg oral tablet) 1 to 2 tablets Oral every 6 hours as needed for Pain No more than 4,000mg acetaminophen/24hrs ibuprofen (ibuprofen 800 mg oral tablet) 800 [...] No Appointments found Your Goals/Additional instructions: Source: [facility] POWERCHART Document Id: [id number] Miscellaneous - Sofie Miller N.P. - 09/06/2011 3:31 PM CDT Ambulatory Depart Summary [address] [id number] [place] [address] Visit Information Name: CHERRY MAZARIEGOS Visit Date: 09/06/2011 15:31:43 Attending Provider: SOFIE MILLER MUTUAL FUNDS AGENT Primary Care Provider: SOFIE MILLER NP CHERRY MAZARIEGOS has been given the following list of medications: Your Medications It is important to take your medications as directed. Use a pill box or chart to help remind you to take your medications. Please let your doctor or nurse know if you have problems taking your medications. Medication/Strength Dose Route Frequency Indications/Special Instructions/Comments ondansetron (Zofran 8 mg oral tablet) 8 mg Oral every 8 hours as needed for Nausea hydrocodone-acetaminophen (Vicodin 5 mg-500 mg oral tablet) 1 to 2 tablets Oral every 6 hours as needed for Pain No more than 4,000mg acetaminophen/24hrs ibuprofen (ibuprofen 800 mg oral tablet) 800 [...] your provider for clarification. Additional Information: Source: [facility] POWERCHART Document Id: [id number] Miscellaneous - Kaylee Mazariegos, L.P.N. - 09/06/2011 11:18 AM CDT Adult Hall Tender Intake/History Adult Hall Tender Intake/History Entered On: 09/06/2011 11:21 CDT Performed On: 09/06/2011 11:18 CDT by KAYLEE MAZARIEGOS GEAR TOOTH GRINDING MACHINE OPERATOR Intake Chief Complaint : stomach pain Onset of Symptoms : 1 week Temperature Core : 36.6C(Converted to: 97.9DegF) Peripheral Pulse Rate : 87/min Respiratory Rate : 18/min Heart Rhythm : Regular Systolic Blood Pressure : 110mmHg Diastolic Blood Pressure : 60mmHg NIBP Mean : 77mmHg BP Location : Right upper extremity Blood Pressure Cuff Size : Regular SpO2 : 98% Oxygen Therapy : Room air Actual Weight : 94.7kg(Converted to: 208lb 12oz) Weight Source : Standing scale Dosing Weight Clinic : 94.70kg KAYLEE MAZARIEGOS [facility] 09/06/2011 11:18 CDT Subjective Pain Symptoms : Yes KAYLEE MAZARIEGOS [facility] - 09/06/2011 11:18 CDT Pain Pain Assessment Grid Pain 1 Location : Abdomen Intensity : 10 KAYLEE MAZARIEGOS [facility] 09/06/2011 11:18 CDT Dependent Habits Tobacco Use/Currently Using : No Exposure to Tobacco Smoke : Patient smokes Smoking Status : Former smoker KAYLEE MAZARIEGOS [facility] 09/06/2011 11:18 CDT Tobacco Use Grid Type : Cigarettes Cigarette Use Packs/Day : 0.5 KAYLEE MAZARIEGOS [facility] - 09/06/2011 11:18 CDT Alcohol Use : No KAYLEE MAZARIEGOS [facility] - 09/06/2011 11:18 CDT Caffeine Use Grid Caffeine Use : None KAYLEE MAZARIEGOS [facility] 09/06/2011 11:18 CDT Recreational Drug Use Grid Drug Use : None KAYLEE MAZARIEGOS [facility] 09/06/2011 11:18 CDT Allergy Allergies (Active) NKA Estimated Onset Date: Unspecified ; Created By: SKIP SCHWARTZ LPN; Reaction Status: Active ; Category: Drug ; Substance: NKA ; Type: Allergy ; Updated By: SKIP SCHWARTZ LPN; Reviewed Date: 09/06/2011 11:17 CDT Source: [facility] simplifyMD Document Id: [id number] CDT!40 documented in this encounter Plan of Treatment Not on filedocumented as of this encounter Procedures Procedure Name Priority Date/Time Associated Comments Diagnosis URINALYSIS, ROUTINE Routine 09/06/2011 2:00 PM Re sults for this CDT procedure are i n the results section. URINE MICROSCOPIC Routine 09/06/2011 2:00 PM Resu lts for this CDT procedure are i n the results section. AUTOMATED Routine 09/06/2011 11:46 Results for this DIFFERENTIAL, B AM CDT procedure ar e in the results section. CBC WITH Routine 09/06/2011 11:46 Results for this DIFFERENTIAL, B AM CDT procedure ar e in the results section. documented in this encounter Results Urine Microscopic (09/06/2011 2:00 PM CDT) [facility] Method Time Signature HXUr WBC 0-2 0 - 2 POWERCHART Red Blood Cell 5-10 0 - 2 POWERCHART Clump, Urine HXUr Epithelial Occasional POWERCHART Comment: [email or web address] MJP 09/06/2011 14:20 Specimen Anatomical Collection Method Collection Time Receive d Time (Source) Location / / Volume Laterality Urine 09/06/2011 2:00 PM 2 2:00 CDT PM CDT Sofie Stern.Amy LAB URINE ORDERABLES Performing Organization Address [facility] Phon e Number POWERCHART Urinalysis, Routine (09/06/2011 2:00 PM CDT) [facility] Method Time Signature HXUr Color Yellow POWERCHART Appearance Clear POWERCHART Glucose Negative POWERCHART HXBILIRUBIN Negative POWERCHART Ketones, QL(U) Negative POWERCHART Specific <=1.005 1.000 - POWERCHART [place], POCT, U 1.030 pH, POCT, Urine 6.0 5.0 - 8.0 POWERCHART Protein, Ur, Dip Negative POWERCHART Urobilinogen 0.2 POWERCHART HXNITRITE Negative POWERCHART HXBLOOD 3+ POWERCHART Leukocyte Negative POWERCHART Esterase Source Clean Void POWERCHART Urine Specimen (Source) Anatomical Collection Method Collection Time Re ceived Time Location / / Volume Laterality Urine 09/06/2011 2:00 PM CDT Sofie Miller N.P. LAB URINE ORDERABLES Performing Organization Address [facility] Code Phon e Number POWERCHART (ABNORMAL) Automated Differential (09/06/2011 11:46 AM CDT) [facility] [employer] Method Time Signature Neutro % 68.7 42.0 - POWERCHART 77.0 Lymphocytes % 17.8 (L) 23.0 - POWERCHART 44.0 HX [place] % 11.6 (H) 2.0 - 11.0 POWERCHART HX Eos % 1.7 1.0 - 5.0 POWERCHART HX Baso % 0.2 0.0 - 1.0 POWERCHART Absolute 8.40 (H) 1.70 - POWERCHART Neutrophils 7.00 109L Lymphocytes 2.17 0.90 - POWERCHART 2.90 X109L Monocytes 1.42 (H) 0.30 - POWERCHART 0.90 X109L Eosinophils 0.21 0.05 - POWERCHART 0.50 X109L Absolute 0.02 0.00 - POWERCHART Basophil 0.30 X109L Specimen Anatomical Collection Method Collection Time Receive d Time (Source) Location / / Volume Laterality Blood 09/06/2011 11:46 09/06/2011 AM CDT 11:46 AM CDT Sofie Miller N.P. LAB BLOOD ADD-ON Performing Organization Address City/State/ZIP Code Phon e Number POWERCHART (ABNORMAL) CBC with Differential (09/06/2011 11:46 AM CDT) [facility] gist Method Time Signature Leukocytes 12.2 (H) 3.4 - 10.5 POWERCHART X109L Erythrocytes 5.10 (H) 3.90 - POWERCHART 5.03 [id number] Hemoglobin 15.9 (H) 12.0 - POWERCHART 15.5 GDL Hematocrit 44.9 (H) 34.9 - POWERCHART 44.5 MCV 88.0 82.0 - POWERCHART 98.0 FL HX RDW 13.5 11.9 - POWERCHART 15.5 Platelet Count 237 150 - 450 POWERCHART X109L HXDifferential? Auto POWERCHART Specimen (Source) Anatomical Collection Method Collection Time Re ceived Time Location / / Volume Laterality Blood 09/06/2011 11:46 AM CDT Sofie Miller N.Amy LAB BLOOD ADD-ON Performing Organization Address City/State/ZIP Code Phon e Number POWERCHART documented in this encounter Visit Diagnoses Not on filedocumented in this encounter
--- OUTSIDE RECORDS SUMMARY | 2021-11-21 03:06 | XMS_ITS | Encounter Summary ---
:[address] [facility] Address [address] [place] [address] Care Team Providers Name Role Phone Unavailable Primary Care Provider Unavailable Encounter Details Date Type Department Care Team Description 05/16/2011 Hospital Encounter [facility] [place] Prince Ko III, M.D. [address] [place] [phone] (Wo rk) Social History Tobacco Use Types Packs/Day Years Used Date Smoking Tobacco: Never Assessed Sex Assigned at Date Recorded Not on file documented as of this encounter Plan of Treatment Not on filedocumented as of this encounter Visit Diagnoses Not on filedocumented in this encounter
--- OUTSIDE RECORDS SUMMARY | 2021-11-21 03:06 | XMS_ITS | Encounter Summary ---
:1990 Author Organization [facility] Address [address] [place] [address] Care Team Providers Name Role Phone Unavailable Primary Care Provider Unavailable Encounter Details Date Type Department Care Team Description 06/01/2008 Hospital Encounter HX [facility] INPT/OBSRV Ambar Flores P.A.-C. [address] [place] [phone] (Wo rk) Social History Tobacco Use Types Packs/Day Years Used Date Smoking Tobacco: Never Assessed Sex Assigned at Date Recorded Not on file documented as of this encounter Plan of Treatment Not on filedocumented as of this encounter Visit Diagnoses Not on filedocumented in this encounter
--- OUTSIDE RECORDS SUMMARY | 2021-11-21 03:06 | XMS_ITS | Encounter Summary ---
:[address] [facility] Address [address] [place] [address] Care Team Providers Name Role Phone Unavailable Primary Care Provider Unavailable Encounter Details Date Type Department Care Team Description 01/08/2009 Hospital Encounter HX NO MAPPING Leobardo Walker P .A.-C. Social History Tobacco Use Types Packs/Day Years Used Date Smoking Tobacco: Never Assessed Sex Assigned at Date Recorded Not on file documented as of this encounter Progress Notes Conversion, Historical Provider Ser - 01/08/2009 1:30 PM CDT [id number] SUBJECTIVE: She has had a sore throat for a couple of days without severe cough or fever. She smokes, strongly advised not to. No risk of , she declines. Occasionally uses an albuterol inhaler. PHYSICAL EXAM: Throat mild to moderate erythema. Tonsils gone. Neck with a few shotty submandibular nodes. Neck supple. TMs are clear. Chest clear. Heart tones are normal. No coughing. Vitals stable. No wheezing or dyspnea. ASSESSMENT: Viral pharyngitis. PLAN: She thinks she may have been exposed to strep. She will get started on penicillin for 2 days 500 twice a day. Call back for culture report, if negative stop antibiotics or otherwise if positive continue for a full 10 days. Recheck if fail to resolve. Leobardo Walker PA-C Source: [facility] RWHXTRANSXRTFSYS Document Id: [id number] documented in this encounter Plan of Treatment Not on filedocumented as of this encounter Visit Diagnoses Not on filedocumented in this encounter
--- OUTSIDE RECORDS SUMMARY | 2021-11-21 03:06 | XMS_ITS | Encounter Summary ---
:1990 Author Organization [facility] Address [address] [place] [address] Care Team Providers Name Role Phone Unavailable Primary Care Provider Unavailable Encounter Details Date Type Department Care Team Description 03/16/2009 Hospital Encounter HX [facility] Provider, Jerry chavez Social History Tobacco Use Types Packs/Day Years Used Date Smoking Tobacco: Never Assessed Sex Assigned at Date Recorded Not on file documented as of this encounter Miscellaneous Notes Miscellaneous - Conversion, Historical Provider Ser - 03/16/2009 12:00 AM CUSHION STUFFER [id number] Cherry Mazariegos [address] [place] [address] March 16, 2009 Dear Cherry Mazariegos, APPOINTMENT REMINDER: Our record indicates that it is time for you to be seen for an office visit with a provider of your choice in Gynecology. You may call our office at [phone] to schedule an appointment for a Colonoscopy. Please disregard this notice if you have already made an appointment. Sincerely, [facility] Document Id: [id number] documented in this encounter Plan of Treatment Not on filedocumented as of this encounter Visit Diagnoses Not on filedocumented in this encounter
--- OUTSIDE RECORDS SUMMARY | 2021-11-21 03:06 | XMS_ITS | Encounter Summary ---
:1990 Author Organization [facility] Address [address] [place] [address] Care Team Providers Name Role Phone Unavailable Primary Care Provider Unavailable Encounter Details Date Type Department Care Team Description 06/30/2008 Hospital Encounter [facility] INPT/OBSRV Ambar Flores P.A.-C. [address] [place] [address] (Wo rk) Social History Tobacco Use Types Packs/Day Years Used Date Smoking Tobacco: Never Assessed Sex Assigned at Date Recorded Not on file documented as of this encounter Plan of Treatment Not on filedocumented as of this encounter Visit Diagnoses Not on filedocumented in this encounter
--- OUTSIDE RECORDS SUMMARY | 2021-11-21 03:06 | XMS_ITS | Encounter Summary ---
:1990 Author Organization [facility] Address [address] [place] [address] Care Team Providers Name Role Phone Unavailable Primary Care Provider Unavailable Encounter Details Date Type Department Care Team Description 05/01/2010 Hospital En[facility] IN[facility]OBS[facility] Ambar Flores P.A.-C. [address] [place] [phone] (Wo rk) Social History Tobacco Use Types Packs/Day Years Used Date Smoking Tobacco: Never Assessed Sex Assigned at Date Recorded Not on file documented as of this encounter Plan of Treatment Not on filedocumented as of this encounter Visit Diagnoses Not on filedocumented in this encounter
--- OUTSIDE RECORDS SUMMARY | 2021-11-21 03:06 | XMS_ITS | Encounter Summary ---
:1990 Author Organization [facility] Address [address] [place] [address] Care Team Providers Name Role Phone Unavailable Primary Care Provider Unavailable Encounter Details Date Type Department Care Team Description 06/21/2011 Hospital Encounter [facility] Santino De Anda M.D. [phone] [place], [place] [address] (Wo rk) Social History Tobacco Use Types Packs/Day Years Used Date Smoking Tobacco: Never Assessed Sex Assigned at Date Recorded Not on file documented as of this encounter Progress Notes Santino De Anda M.D. - 06/21/2011 4:10 PM CST [id number] Subjective: Cherry Mazariegos a 21 year old female who presents with: The patient complains of neck pain of moderate severity for 2 weeks. The patient describes the symptoms as neck pain. The patient describes modifying or exacerbating factors as:when down a slide with her daughter none. The patient has attempted the following treatments:has seen a chuiropractor in th recent past and taking flexeril asfntramadol. The patient denies any other aggravating or alleviating factors or associated symptoms. Other than as mentioned elsewhere review of medications reveals no problems with compliance or side effects. She denies other significant symptoms on ROS of the cardiovascular and Respiratory systems. Current medications reviewed and the patient denies any problems with compliance or side effects. No past surgical history on file. No past medical history on file. Medications: Current outpatient prescriptions Medication Sig traMADol (ULTRAM) 50 MG tablet Take 2 tablets by mouth every 6 hours as needed. cyclobenzaprine (FLEXERIL) 10 MG tablet Take 10 mg by mouth 3 times daily as needed. Allergies: Nkda History Social History Marital Status: Single Spouse Name: N/A Number of Children: N/A Years of Education: N/A Social History Main Topics Smoking status: Current Everyday Smoker -- 0.5 packs/day Types: Cigarettes Smokeless tobacco: Never Used Alcohol Use: Not on file Drug Use: Not on file Sexually Active: Yes -- Male partner(s) Other Topics Concern Not on file Social History Narrative No narrative on file No family history on file. Objective: CONSTTUTIONAL:Blood pressure 120/70, pulse 70, temperature 97.7 ??F (36.5 ??C), temperature source Temporal, height 1.778 m (5' 10), weight 102.83 kg (226 lb 11.2 oz). The patients general appearance is well nourished well developed without apparent distress. PSYCHIATRIC:Patient exhibits stable mood, affect, judgment, insight and orientation during conversation. EARS, NOSE, MOUTH & THROAT: Eyes with normal lids, conjunctiva, pupils and irises(PERRELA). External ears nose are within normal limits. Normal lips teeth and gums. NECK:Neck is grossly normal in overall appearance and without obvious Masses, dysymmetry or thyroid abnormality. SKIN:Skin is without cyanosis and of normal color. NEUROLOGIC: No focal neurological deficits noted on gross inspection. tender to palpation over the trapezius muscle Assessment: SPECIAL SCREENING EXAMINATION FOR UNSPECIFIED CHLAMYDIAL DISEASE NECK PAIN Plan: The patient will be started on motrin 800mg . The patient will be scheduled for consult with Physical Therapy. The patient was instructed to follow up as needed or sooner if symptoms worsen or fail to improve as anticipated. Source[facility] Document Id: [id number] Electronically signed by Shi, [facility] Electric Mule Driver [id number] at 09/14/2016 3:32 PM CDT documented in this encounter Miscellaneous Notes Miscellaneous - Wilian Sandhu, RPedroN. - 04/08/2014 9:44 AM CST *General Message-new OB From: WILIAN SANDHU RN (SARAH Burnett/Angelica/Luciana/Miriam Nurse Line) Sent: 04/08/2014 09:44:53 JIG FITTER Subject: *General Message-new OB Triage/Phone Nurse: 'How many periods have you missed?' one Have you done a home test? yes Which is this for you? third Have you had any of the following? - Previous tubal ?no - Diabetes or diabetes in that required you to take medication? gestational with first, monitored, diabetic diet - High blood pressure or high blood pressure in that required you to take medication?no - Any kidney or liver disease? kidney, left kidney only functions at 11 %, right is normal function, does not follow with provider, related to kidney infection, has no issues for 10 years - Any heart problems?no - Received treatment for cancer?no - Previous blood clots?no, Family with factor five, grandmother has been diagnosed, runs on paternal side, no issues with first - Are you taking any medication for depression or anxiety?no 1. LMP 03/03/14 STEVEN 12/09/14 2. Number of pregnancies: 3 Number of live births 1-vaginal 3. The initial OB visit is routinely scheduled between 8-10 weeks of . this first visit will be with our Nurse Practitioner. Expected first appt 04/29/14 to 05/13/14. 4. The first visit will be an hour appointment that will include obtaining a complete health historyand a physical exam. The physical exam may include a pap smear (if needed or if due) and lab work. 5. You will also be obtaining initial information and information regarding what to expectduring your care. 6. You are encouraged to start taking a multivitamin if you are not already taking. vitamins may be obtained over the counter. 7. We would encourage you to abstain from alcohol now that is known. 8. If you smoke, we would also encourage you to stop smoking as well. If you need assistance to quitsmoking, we would be happy to assist you with this. Source: [facility] P[facility] Document Id: [id number] Electronically signed by Shi, [facility] Electric Mule Driver [id number] at 09/15/2016 3:04 AM CDT Miscellaneous - Santino De Anda M.D. - 06/21/2011 4:10 PM CST [id number] Cherry Mazariegos [address] [place] [address] [facility] June 24, 2011 [id number] Dear Cherry I am writing you concerning your recent lab results obtained at the clinic. Your tests have returnedand are listed here. Your tests for STD's have returned negative for Chlamydia As a result I hope this is reassuring to you. If you have any questions or would like to discuss this further with me please feel free to make an appointment at anytime by calling [phone]. Looking forward to seeing you in the future. Sincerely, Santino De Anda M.D. Department of Family Practice [facility] Source: [facility] Document Id: [id number] Electronically signed by Conversion, [facility] Electric Mule Driver [id number] at 09/14/2016 3:32 PM CDT documented in this encounter Plan of Treatment Not on filedocumented as of this encounter Procedures Procedure Name Priority Date/Time Associated Comments Diagnosis HX SN - SPEC - Routine 06/23/2011 3:04 PM Results for this DESCRIPTION CDT procedure are i n the results section. HX CHLAMYDIA Routine 06/23/2011 3:04 PM Results f or this TRACHOMATIS AMPLIFIED CDT proced ure are in DNA-ID the results section. documented in this encounter Results HX CHLAMYDIA TRACHOMATIS AMPLIFIED DNA-ID (06/23/2011 3:04 PM CDT) Specimen (Source) Anatomical Collection Method Collection Time Re ceived Time Location / / Volume Laterality 06/23/2011 3:04 PM CDT Narrative [facility] - 06/14/19 14 6:52 PM JIG FITTER Negative for C. trachomatis rRNA by railroad car loader mediated amplification. A negative result by railroad car loader media miranda amplification does not preclude the presence of C. trachomatis infection bec ause results are dependent on proper and adequate collection, absence of inhi bitors, and sufficient rRNA to be detected. A negative urine result for a female pat ient who is clinically suspected of having a chlamydial infection does not r ule out the presence of C. trachomatis in the urogenital tract. Historical Provider LAB HISTORICAL ORDERS Performing Organization Address City/State/ZIP Code Phon e Number [facility] HX SN - SPEC - DESCRIPTION (06/23/2011 3:04 PM CDT) P athologist Signature HXSPECIMAN Urine [facility] Specimen (Source) Anatomical Collection Method Collection Time Re ceived Time Location / / Volume Laterality 06/23/2011 3:04 PM CDT Historical Provider LAB HISTORICAL ORDERS Performing Organization Address City/State/ZIP Code Phon e Number [facility] documented in this encounter Visit Diagnoses Not on filedocumented in this encounter
--- OUTSIDE RECORDS SUMMARY | 2021-11-21 03:06 | XMS_ITS | Encounter Summary ---
:1990 Author Organization [facility] Address [address] [place] [address] Care Team Providers Name Role Phone Unavailable Primary Care Provider Unavailable Encounter Details Date Type Department Care Team Description 12/31/2011 Hospital Encounter HX [facility] Tosha Mix, TREVER, C.N.P., D. N.P. [address] [place] [address] (Wo rk) Social History Tobacco Use Types Packs/Day Years Used Date Smoking Tobacco: Never Assessed Sex Assigned at Date Recorded Not on file documented as of this encounter Last Filed Vital Signs Vital Sign Reading Time Taken Comments Blood Pressure 104/65 12/31/2011 8:45 AM CDT Pulse 75 12/31/2011 8:45 AM CDT Temperature - - Respiratory Rate - - Oxygen Saturation - - Inhaled Oxygen Concentration - - Weight 95.8 kg (211 lb 3.2 oz) 12/31/2011 8:45 AM CDT Height 181 cm (5' 11.26) 12/31/2011 8:45 AM CDT Body Mass Index 29.24 12/31/2011 8:45 AM CDT documented in this encounter Progress Notes Tosha Mix, D.N.P., C.N.P. - 12/31/2011 8:42 AM CDT [id number] CHIEF COMPLAINT/REASON FOR VISIT Multiple issues. HISTORY OF PRESENT ILLNESS The patient is a 21-year-old female who presents to the clinic today with a chief complaint of having some multiple issues that she would like have addressed. Presently she would like to quit smoking as she indicates that she has been smoking since approximately 12 years of age and is currently smoking about a half pack per day. She does report that yesterday she only smoked approximately three cigarettes but does report that on occasion she does have increase agitation. She reports that she has used previously prescribed Wellbutrin and Chantix in the past with some fairly bad dreams as she indicates when she was on the Chantix. She had dreams that the father of her daughter was trying to drown her daughter. She indicates that she would like to avoid this and would like to try the nicotine patch at this time. She also indicates that now she is starting to have multiple outbreaks of acne vulgaristo the face in which she reports that she has been washing her face twice a day and also applying topical alcohol with no some symptom improvement. She has been using Differin as previously prescribed at night with again no improvement in her symptoms. She also indicates that she suffers from eustachian tube dysfunction which she has had tubes placed in 2007 and 2008 for eustachian tube dysfunction and reports that she has now had the tubes out since approximately 2009 but continues having to pop her ears opened as she indicates that often she is unable to open up the right eustachian tube and would like to be reevaluated by Ears, Nose, and Throat. She indicates that she does not have any seasonal allergies to her knowledge and has not been taking anything [id number] to help with her ears. PAST MEDICAL/SURGICAL/FAMILY HISTORY Past medical, surgical, and family history were reviewed. Please see chart. CURRENT MEDICATIONS Reviewed. Please see chart. ALLERGIES Reviewed. Please see chart. PHYSICAL EXAMINATION GENERAL: The patient is alert and oriented x3. HEAD: Normocephalic, atraumatic. PUPILS: Pupils equal, round, and reactive to light and accommodation OROPHARYNX: [place] and moist. TMs: The left tympanic membrane is noted to be protruding as bony landmarks are noted to be distorted. There is also previous scarring from myringotomy at approximately the 4 o'clock location of the left tympanic membrane. Effusion is also noted to the left tympanic membrane. NARES: Patent. No erythema or drainage noted. NECK: No anterior or posterior lymphadenopathy noted. HEART: Regular. S1, S2. No murmurs, rubs or gallops noted. LUNGS: Clear to auscultation. No prolonged expiratory phases, wheezing, rales or rhonchi noted. SKIN: Without unusual rashes or suspicious lesions. IMPRESSION/REPORT/PLAN 1. History of tobacco use. 2. Eustachian tube dysfunction. 3. Acne vulgaris. PLAN 1. Smoking cessation: Presently at this time I did offer the patient the nicotine patch 14 mg transdermal for 24 hours in which she is to apply the patch daily removing at night. After three days of usage, I indicated that she can quit smoking. I did give her one refill in which this was discussed atlength its usage with the patient indicating that if she feels weaning down to a 7 mg patch after 14days is to soon she may refill this. I then provided her with a prescription for nicotine 7 mg per 24-hour transdermal patch that she is then to use after weaning from the 14 mg. She is also given one refill of the 7 mg per 24-hour transdermal patch as well. She is instructed then to stop smoking and t he nicotine patch after the full 14 or potentially 28 day usage of the 7 mg transdermal patch. Thesefindings were discussed at length with the patient. The patient was in agreement with this plan. 2. Eustachian tube dysfunction: Presently at this time as she presently has an effusion present to the left tympanic membrane, I do see with her history that following up with Ears, Nose and Throat may be of benefit in which we will make this referral at this time. The patient is appreciative of thisas we will contact her with an appointment time to follow up with Dr. Mackenzie, Ears, Nose and Throat here in [place]. 3. Acne vulgaris: The patient was instructed to continue washing her face twice a day as I did opt to start her on tretinoin 0.1% topical gel given the fact that she is applying topical alcohol to herface with no significant dryness. Using a cream may be too hydrating to the skin. She is to apply this every night and the side effects of the medication were discussed with the patient as well. I indicated that if she is not having success with this, she could also continue using the Differin, then Iwould consider topical antimicrobial agent to her treatment plan. The patient stated understanding this plan as she otherwise denied having any further questions or concerns and will follow-up as needed. The patient ambulated out of the clinic in no acute distress. Patient Education Ready to learn No apparent learning barriers were identified Learning preferences include listening Explained diagnosis and treatment plan Patient/Child/Caregiver expressed understanding of the content Tosha Mix D.N.P./Fernie/marcelina Electronically Signed By: TOSHA MIX DNP, FNP On: 12/31/2011 11:35 AM Source: [facility] MHSDOLBEYNONRADSYS Document Id: [id number] documented in this encounter Miscellaneous Notes Miscellaneous - Tosha Mix D.N.P., Jhon.N.P. - 12/31/2011 9:18 AM CDT Ambulatory Depart Summary [address] [address] Visit Information Name: CHERRY CHEN Visit Date: 12/31/2011 09:18:09 Attending Provider: TOSHA MIX DNP, FNP Primary Care Provider: SOFIE GARCIA SUBCONTRACTS MANAGER CHERRY CHEN has been given the following list of medications: Your Medications It is important to take your medications as directed. Use a pill box or chart to help remind you to take your medications. Please let your doctor or nurse know if you have problems taking your medications. Medication/Strength Dose Route Frequency Indications/Special Instructions/Comments nicotine (nicotine 7 mg/24 hr transdermal film, [...] provider for clarification. Additional Information: Source: [facility] POWERCHART Document Id: [id number] Miscellaneous - Tosha Mix D.N.P., C.N.P. - 12/31/2011 9:18 AM CDT Ambulatory Patient Summary [address] [address] Visit Information Name: CHERRY CHEN Current Date: 12/31/2011 09:18:10 Physicians Attending Provider: TOSHA MIX DNP, GOLF CLUB MANAGER Primary Care Provider: SOFIE GARCIA NP Your Medications Here is a list of your medications. It is important to take your medications as directed. Use a pillbox or chart to help remind you to take your medications. Please let your doctor or nurse know if you have problems taking your medications. Medication/Strength Dose Route Frequency Indications/Special Instructions/Comments nicotine (nicotine 7 mg/24 hr transdermal film, [...] No Appointments found Your Goals/Additional instructions: Source: [facility] POWERCHART Document Id: [id number] Miscellaneous - Nell Miller L.P.N. - 12/31/2011 8:45 AM CDT Adult Business Trainer Intake/History Adult Business Trainer Intake/History Entered On: 12/31/2011 8:50 CDT Performed On: 12/31/2011 8:45 CDT by NELL MILLER LPN, RT Intake Chief Complaint : smoking cessation Temperature Core : 36.2C(Converted to: 97.2DegF) (LOW) Peripheral Pulse Rate : 75/min Systolic Blood Pressure : 104mmHg Diastolic Blood Pressure : 65mmHg NIBP Mean : 78mmHg BP Location : Left upper extremity Blood Pressure Cuff Size : Large SpO2 : 99% Oxygen Therapy : Room air Height : 181cm(Converted to: 5ft 11inch(es), 71.26inch(es)) Actual Weight : 95.8kg(Converted to: 211lb 3oz) Weight Source : Standing scale Dosing Weight Clinic : 95.80kg Clinic BSA : 2.19 Body Mass Index : 29.24kg/m2 NELL MILLER LPN, RT - 12/31/2011 8:45 CDT General Info Information Given By : Patient Preferred Communication Mode : Verbal Languages : [place] NELL MILLER LPN, RT - 12/31/2011 8:45 CDT Subjective Pain Symptoms : No NELL MILLER LPN, RT - 12/31/2011 8:45 CDT Dependent Habits Tobacco Use/Currently Using : Yes Exposure to Tobacco Smoke : Patient smokes Smoking Status : Current every day smoker NELL MILLER LPN, RT - 12/31/2011 8:45 CDT Tobacco Use Grid Type : Cigarettes Cigarette Use Packs/Day : 0.5 NELL MILLER LPN, RT - 12/31/2011 8:45 CDT Caffeine Use Grid Caffeine Use : None NELL MILLER LPN, RT - 12/31/2011 8:45 CDT Recreational Drug Use Grid Drug Use : None NELL MILLER LPN, RT - 12/31/2011 8:45 CDT Allergy Allergies (Active) NKA Estimated Onset Date: Unspecified ; Created By: SKIP SCHWARTZ LPN; Reaction Status: Active ; Category: Drug ; Substance: NKA ; Type: Allergy ; Updated By: SKIP SCHWARTZ LPN; Reviewed Date: 10/30/2011 11:08 CDT [facility] Document Id: [id number] documented in this encounter Plan of Treatment Not on filedocumented as of this encounter Visit Diagnoses Not on filedocumented in this encounter
--- OUTSIDE RECORDS SUMMARY | 2021-11-21 03:06 | XMS_ITS | Encounter Summary ---
:1990 Author Organization [facility] Address [address] [place] [address] Care Team Providers Name Role Phone Unavailable Primary Care Provider Unavailable Encounter Details Date Type Department Care Team Description 10/30/2010 Hospital Encounter [facility] Flora Russell P.A.-Liam [address] [place] [address] (Wo rk) Social History Tobacco Use Types Packs/Day Years Used Date Smoking Tobacco: Never Assessed Sex Assigned at Date Recorded Not on file documented as of this encounter Plan of Treatment Not on filedocumented as of this encounter Visit Diagnoses Not on filedocumented in this encounter
--- OUTSIDE RECORDS SUMMARY | 2021-11-21 03:06 | XMS_ITS | Encounter Summary ---
:1990 Author Organization [facility] Address [address] [place] [address] Care Team Providers Name Role Phone Unavailable Primary Care Provider Unavailable Encounter Details Date Type Department Care Team Description 01/20/2009 Hospital Encounter [facility] Jarred Montes M.D. [address] [place], [place] [address] (Wo rk) Social History Tobacco Use Types Packs/Day Years Used Date Smoking Tobacco: Never Assessed Sex Assigned at Date Recorded Not on file documented as of this encounter Plan of Treatment Not on filedocumented as of this encounter Visit Diagnoses Not on filedocumented in this encounter
--- OUTSIDE RECORDS SUMMARY | 2021-11-21 03:06 | XMS_ITS | Encounter Summary ---
:1990 Author Organization [facility] Address [address] [place] [address] Care Team Providers Name Role Phone Unavailable Primary Care Provider Unavailable Encounter Details Date Type Department Care Team Description 02/22/2009 Hospital [facility] Barbie Stovall M.D. [address] [place] [address] (Wo rk) Social History Tobacco Use Types Packs/Day Years Used Date Smoking Tobacco: Never Assessed Sex Assigned at Date Recorded Not on file documented as of this encounter Plan of Treatment Not on filedocumented as of this encounter Visit Diagnoses Not on filedocumented in this encounter
--- OUTSIDE RECORDS SUMMARY | 2021-11-21 03:06 | XMS_ITS | Encounter Summary ---
:1990 Author Organization [facility] Address [address] [place] [address] Care Team Providers Name Role Phone Unavailable Primary Care Provider Unavailable Encounter Details Date Type Department Care Team Description 09/03/2011 Hospital Encounter HX [facility] Raj Miller, N.P. [address] [place] [phone] (Wo rk) Social History Tobacco Use Types Packs/Day Years Used Date Smoking Tobacco: Never Assessed Sex Assigned at Date Recorded Not on file documented as of this encounter Last Filed Vital Signs Vital Sign Reading Time Taken Comments Blood Pressure 106/68 09/03/2011 10:39 AM CDT Pulse 64 09/03/2011 10:39 AM CDT Temperature - - Respiratory Rate 16 09/03/2011 10:39 AM CDT Oxygen Saturation - - Inhaled Oxygen Concentration - - Weight 94.4 kg (208 lb 1.8 oz) 09/03/2011 10:39 AM CDT Height - - Body Mass Index - - documented in this encounter Progress Notes Megan Miller, N.P. - 09/03/2011 12:00 AM CDT [id number] CHIEF COMPLAINT/REASON FOR VISIT Nausea. HISTORY OF PRESENT ILLNESS This 21-year-old female is here today with complaints of not feeling well for the past four to five days. Her main symptom has been being significantly nauseated. She reports that she has not had any vomiting but she feels nauseated quite frequently, although this has not decreased her appetite. She also reports some mild headaches and feeling tired. She had no bowel movement the first day of her symptoms reports in the past two days prior to today she has had 5-6 bowel movements a day which is pretty in usual. She has had no fever. No urinary discomfort. No abdominal pain. She reports that she has not really had a menstrual period since having the Implanon placed but is having some spotting today. She did note a little bit of heartburn last night but this was an isolated incident. CURRENT MEDICATIONS No change, please see electronic medical record. ALLERGIES No known drug allergies. PAST MEDICAL HISTORY/SURGICAL HISTORY Past medical history is reviewed and unchanged, please see electronic medical record. VITAL SIGNS Vital signs: Temperature 36.5, pulse 64, respirations 16, blood pressure 106/68. PHYSICAL EXAMINATION GENERAL: Patient is alert, oriented x3, appears in no acute distress. HEART: Heart rate is regular, S1, S2 present. No murmur or rub. LUNGS: Clear to auscultation. ABDOMEN: Soft, nondistended. Bowel sounds present x4 and normoactive. No cva tenderness. LABORATORY: 1. CBC is essentially normal. 2. CMP essentially normal. 3. Urinalysis showed 2+ blood but this is explained by her having some spotting today. Moderate bacteria but no nitrates, no leukocyte esterase. 4. Urine is negative. IMAGING: X-ray of abdomen is negative. IMPRESSION/REPORT/PLAN Nausea. PLAN: Reviewed diagnostic findings with Cherry. Some of the findings were available after she left the clinic so a message was left on her cell phone with her permission regarding further plan of care. At this time, it could be just a viral illness that is making her feel poorly. We also did note that on the x-ray she had a fair amount of stool still in her colon so I suggested if she felt as though she was having issues with constipation she could try an [id number] laxative or stool softener. I would encourage her to follow up if she develops any fever, vomiting or if her symptoms are not resolving. Questions have been addressed and she is agreeable to this plan of care. Patient Education #1 Patient ready to learn. No apparent learning barriers were identified. Learning preferences included listening. Explained diagnosis and treatment plan. Patient expressed understanding of the content. Megan Miller, N.Chio. / Electronically Signed By: MEGAN MILLER NP On: 09/04/2011 09:25 AM [facility] Document Id: [id number] documented in this encounter Miscellaneous Notes Miscellaneous - Megan Miller, N.P. - 09/03/2011 2:31 PM CDT Ambulatory Depart Summary [address] [address] Visit Information Name: CHENCHERRY CHAND Visit Date: 09/03/2011 14:31:44 Attending Provider: MEGAN MILLER NP Primary Care Provider: MEGAN MILLER NP CHENLENIN CHANDMagali ROBLEDO has been given the following list [...] your provider for clarification. Additional Information: Source: [facility] POWERCHART Document Id: [id number] Miscellaneous - Megan Miller N.P. - 09/03/2011 2:31 PM CDT Ambulatory Patient Summary [address] [address] Visit Information Name: CHENCHERRY CHAND Current Date: 09/03/2011 14:31:44 Physicians Attending Provider: MEGAN MILLER NP Primary [...] No Appointments found Your Goals/Additional instructions: Source: [facility] POWERCHART Document Id: [id number] Miscellaneous - Nicci Andrew LPedroP.N. - 09/03/2011 10:39 AM CDT Adult Micro Lab Analyst Intake/History Adult Micro Lab Analyst Intake/History Entered On: 09/03/2011 10:44 CDT Performed On: 09/03/2011 10:39 CDT by NICCI ANDREW LPN Intake Chief Complaint : Started Friday getting nauseated, sick to stomach, GONZALEZ, tired, has implan in and itis doing weird things Temperature Core : 36.5C(Converted to: 97.7DegF) Peripheral Pulse Rate : 64/min Respiratory Rate : 16/min Heart Rhythm : Regular Systolic Blood Pressure : 106mmHg Diastolic Blood Pressure : 68mmHg NIBP Mean : 81mmHg BP Location : Right upper extremity Blood Pressure Cuff Size : Regular Actual Weight : 94.4kg(Converted to: 208lb 2oz) Weight Source : Standing scale Dosing Weight Clinic : 94.40kg NICCI ANDREW LPN - 09/03/2011 10:39 CDT Subjective Pain Symptoms : No NICCI ANDREW DOCUMENT CONTROL SUPERVISOR - 09/03/2011 10:39 CDT Dependent Habits Tobacco Use/Currently Using : Yes Tobacco Use/Advised to Quit : Yes Exposure to Tobacco Smoke : Patient smokes Smoking Status : Smoker NICCI ANDREW Dana OLIVEIRA - 09/03/2011 10:39 CDT Tobacco Use Grid Type : Cigarettes Cigarette Use Packs/Day : 0.5 RODNICCI LPN - 09/03/2011 10:39 CDT Alcohol Use : No RICHTERJOSE ANTONIO Cortez LPN - 09/03/2011 10:39 CDT Caffeine Use Grid Caffeine Use : None RICHTERJOSE ANTONIO Cortez LPN - 09/03/2011 10:39 CDT Recreational Drug Use Grid Drug Use : None RICHTERJOSE ANTONIO Cortez LPN - 09/03/2011 10:39 CDT Allergy Allergies (Active) NKA Estimated Onset Date: Unspecified ; Created By: SKIP SCHWARTZ LPN; Reaction Status: Active ; Category: Drug ; Substance: NKA ; Type: Allergy ; Updated By: SKIP SCHWARTZ LPN; Reviewed Date: 09/03/2011 9:47 CDT Source[facility] Document Id: [id number]!33 documented in this encounter Plan of Treatment Not on filedocumented as of this encounter Procedures Procedure Name Priority Date/Time Associated Comments Diagnosis TEST, U Routine 09/03/2011 11:07 Result s for this AM CDT procedure are i n the results section. AUTOMATED Routine 09/03/2011 11:07 Results for this DIFFERENTIAL, B AM CDT procedure ar e in the results section. URINALYSIS, ROUTINE Routine 09/03/2011 11:07 Resu lts for this AM CDT procedure are i n the results section. URINE MICROSCOPIC Routine 09/03/2011 11:07 Result s for this AM CDT procedure are i n the results section. CBC WITH DIFFERENTIAL, Routine 09/03/2011 11:07 R esults for this B AM CDT procedure are i n the results section. COMPREHENSIVE Routine 09/03/2011 11:07 Results fo r this METABOLIC PANEL, S/P AM CDT procedu re are in the results section. documented in this encounter Results Automated Differential (09/03/2011 11:07 AM CDT) P athologist Signature Neutro % 57.9 42.0 - POWERCHART 77.0 Lymphocytes % 29.6 23.0 - POWERCHART 44.0 HX Mitchell % 10.4 2.0 - 11.0 POWERCHART HX Eos % 1.8 1.0 - 5.0 POWERCHART HX Baso % 0.3 0.0 - 1.0 POWERCHART Absolute 4.12 1.70 - POWERCHART Neutrophils 7.00 109L Lymphocytes 2.11 0.90 - POWERCHART 2.90 X109L Monocytes 0.74 0.30 - POWERCHART 0.90 X109L Eosinophils 0.13 0.05 - POWERCHART 0.50 X109L Absolute 0.02 0.00 - POWERCHART Basophil 0.30 X109L Specimen Anatomical Collection Method Collection Time Receive d Time (Source) Location / / Volume Laterality Blood 09/03/2011 11:07 09/03/2011 AM CDT 11:07 AM CDT Megan Miller N.P. LAB BLOOD ADD-ON Performing Organization Address City/State/ZIP Code Phon e Number POWERCHART CBC with Differential (09/03/2011 11:07 AM CDT) P athologist Signature Leukocytes 7.1 3.4 - 10.5 POWERCHART X109L Erythrocytes 4.86 3.90 - POWERCHART 5.03 [id number] Hemoglobin 15.5 12.0 - POWERCHART 15.5 GDL Hematocrit 43.2 34.9 - POWERCHART 44.5 MCV 88.9 82.0 - POWERCHART 98.0 FL HX RDW 13.5 11.9 - POWERCHART 15.5 Platelet Count 250 150 - 450 POWERCHART X109L HXDifferential? Auto POWERCHART Specimen (Source) Anatomical Collection Method Collection Time Re ceived Time Location / / Volume Laterality Blood 09/03/2011 11:07 AM CDT Megan Miller N.Chio. LAB BLOOD ADD-ON Performing Organization Address City/State/ZIP Code Phon e Number POWERCHART Urine Microscopic (09/03/2011 11:07 AM CDT) [facility] O-film Method Time Signature HXUr WBC None Seen 0 - 2 POWERCHART Red Blood Cell 0-2 0 - 2 POWERCHART Clump, Urine HXUr Bacteria Moderate POWERCHART HXUr Epithelial Few POWERCHART Comment: Squamous HX MUCOUS THREADS Large POWERCHART Specimen Anatomical Collection Method Collection Time Receive d Time (Source) Location / / Volume Laterality Urine 09/03/2011 11:07 09/03/2011 AM CDT 11:07 AM CDT Megan Miller N.P. LAB URINE ORDERABLES Performing Organization Address City/State/ZIP Code Phon e Number POWERCHART (ABNORMAL) CMP (Comprehensive Metabolic Panel) (09/03/2011 11:07 AM CDT) [facility] O-film Method Time Signature Alanine 26 15 - 37 POWERCHART Amniotransferase, LD UL Albumin, S 4.4 3.5 - 5.0 POWERCHART GDL Alkaline 72 52 - 144 POWERCHART Phosphatase, S UL Aspartate 17 12 - 31 POWERCHART Aminotransferase UL (AST), S Sodium, S 141.0 135.0 - POWERCHART 145.0 MML Potassium, S 3.9 3.6 - 4.8 POWERCHART MML Chloride, S 109 (H) 100 - 108 POWERCHART MML CO2 Total 25.7 23.0 - POWERCHART 29.0 MMOLL BUN (Blood Urea 8 7 - 18 POWERCHART Nitrogen), S MGDL Creatinine, S 0.74 0.60 - POWERCHART 1.30 MGDL Calcium, Total, S 9.0 8.5 - POWERCHART 10.1 MGDL BUN/Creatinine Ratio 10.0 10.0 - POWERCHAR T 20.0 Anion Gap 6 (L) 10 - 20 POWERCHART MMOLL HXeGFR (MDRD) >60 (H) <=61 POWERCHART [id number] Comment: A GFR of <60 mL/min is indicative of chr onic kidney disease. (MDRD calculation valid on patients 18 - 70 years.) eGFR Black/ >60 MLMIN PO WERCHART Bilirubin, Total, S 0.3 0.1 - 1.0 MGDL POWER CHART Total Protein, S 6.9 6.3 - 7.9 GDL POWERCHAR T Glucose 96 70 - 139 MGDL POWERCHART Specimen (Source) Anatomical Collection Method Collection Time Re ceived Time Location / / Volume Laterality Blood 09/03/2011 11:07 AM CDT Megan Miller N.P. LAB BLOOD ADD-ON Performing Organization Address City/[facility] Phon e Number POWERCHART Test, Qualitative, Urine (09/03/2011 11:07 AM CDT) [facility] Method Time Signature HXBeta-hCG Negative POWERCHART Qualitative Urine Specimen (Source) Anatomical Collection Method Collection Time Re ceived Time Location / / Volume Laterality Urine 09/03/2011 11:07 AM CDT Megan Miller N.Amy LAB URINE ORDERABLES Performing Organization Address [facility] Phon e Number POWERCHART Urinalysis, Routine (09/03/2011 11:07 AM CDT) [facility] Method Time Signature HXUr Color Yellow POWERCHART Appearance Clear POWERCHART Glucose Negative POWERCHART HXBILIRUBIN Negative POWERCHART Ketones, QL(U) Trace POWERCHART Specific 1.025 1.000 - POWERCHART [place], POCT, U 1.030 pH, POCT, Urine 6.0 5.0 - 8.0 POWERCHART Protein, Ur, Dip Negative POWERCHART Urobilinogen 0.2 POWERCHART HXNITRITE Negative POWERCHART HXBLOOD 2+ POWERCHART Leukocyte Negative POWERCHART Esterase Source Clean Void POWERCHART Urine Specimen (Source) Anatomical Collection Method Collection Time Re ceived Time Location / / Volume Laterality Urine 09/03/2011 11:07 AM CDT Megan Miller N.P. LAB URINE ORDERABLES Performing Organization Address City/[facility] Phon e Number POWERCHART documented in this encounter Visit Diagnoses Not on filedocumented in this encounter
--- OUTSIDE RECORDS SUMMARY | 2021-11-21 03:06 | XMS_ITS | Encounter Summary ---
:1990 Author Organization [facility] Address [address] [place] [address] Care Team Providers Name Role Phone Unavailable Primary Care Provider Unavailable Encounter Details Date Type Department Care Team Description 06/20/2011 Hospital Encounter HX [facility] Kristine Moody M.D. [address] [phone] (Wo rk) Social History Tobacco Use Types Packs/Day Years Used Date Smoking Tobacco: Never Assessed Sex Assigned at Date Recorded Not on file documented as of this encounter Last Filed Vital Signs Vital Sign Reading Time Taken Comments Blood Pressure 112/52 06/20/2011 12:33 PM NURSING SERVICE DIRECTOR Pulse 89 06/20/2011 12:33 PM NURSING SERVICE DIRECTOR Temperature - - Respiratory Rate 16 06/20/2011 12:33 PM NURSING SERVICE DIRECTOR Oxygen Saturation - - Inhaled Oxygen Concentration - - Weight 100 kg (221 lb 5.5 oz) 06/20/2011 12:33 PM NURSING SERVICE DIRECTOR Height - - Body Mass Index - - documented in this encounter Progress Notes Kristine Al M.D. - 06/20/2011 12:00 AM CST [id number] CHIEF COMPLAINT/REASON FOR VISIT Neck pain. HISTORY OF PRESENT ILLNESS The patient is a 21-year-old female who states she was at [facility] with her daughter two weeks ago when she went down a slide and felt an immediate pain on the left side of her neck. She saw a chiropractor and the pain started to improve and had almost resolved, but then it worsened. She states that she has seen the chiropractor again and is trying a heating pad as well as Tylenol and ibuprofen and has not gotten any relief. She states that she cannot sleep because of the pain. She has had to hold her neck in funny positions to relieve the discomfort, and yesterday it was so bad that she was crying. She has not had any numbness or tingling. She will occasionally have a headache, which she believes is associated with the neck pain. She states that the pain is worse when she bends or looks to the left. She has had a kink in her neck in the past but nothing that has ever been this bad. CURRENT MEDICATIONS Reconciled. New medicines include Flexeril 10 mg by mouth three times daily x10 days and tramadol 50 mg by mouth two tablets every six hours as needed for pain. ALLERGIES No known drug allergies. SYSTEMS REVIEW As per history of present illness. The patient has not had any pain in the left shoulder or in the right neck. VITAL SIGNS Temperature 37 degrees. Pulse is 89 beats per minute. Respiratory rate is 16 breaths per minute. Blood pressure 112/52. Oxygen saturation is 98% on room air. Weight is 100.4 kg. PHYSICAL EXAMINATION GENERAL: The patient is alert and oriented in no acute distress. NECK: At this point, the patient is able to hold her neck in a neutral position. With palpation of the trapezius on the left, you can feel a tight band of muscle which is tender to palpation. There is no tenderness over the sternocleidomastoid. There is some tenderness over the upper trapezius along towards the shoulder. The patient has full range of motion in all directions but does have some discomfort with lateral rotation and lateral bending both to the left. EXTREMITIES: There is no tenderness over the left shoulder. IMPRESSION/REPORT/PLAN Cervical strain. I discussed with the patient that she has likely strained a muscle in her neck. At this point, I recommend that she continue with ibuprofen three pills three times a day taken with food as well as a heating pad. She was also given a prescription for Flexeril and tramadol to help with her more severe pain. She was advised that these medicines can make her sleepy, and she should take them before driving or doing other activities, which may be problematic if she is tired. She is to return if she has any further problems. Patient Education Ready to learn No apparent learning barriers were identified Learning preferences include listening Explained diagnosis and treatment plan Patient/Child/Caregiver expressed understanding of the content Kristine Rajput M.D. / Electronically Signed By: KRISTINE WYNN MD On: 06/27/2011 06:49 AM Source: [facility] Document Id: [id number] documented in this encounter Miscellaneous Notes Miscellaneous - Kristine Al M.D. - 06/20/2011 12:55 PM NURSING SERVICE DIRECTOR Ambulatory Patient Summary [address] [id number] Visit Information Name: CHERRY CHEN Current Date: 06/20/2011 12:55:12 Physicians Attending Provider: KRISTINE WYNN MD Primary Care Provider: SOFIE GARCIA SPORTS INSTRUCTOR Your Medications Here is a list of your medications. It is important to take your medications as directed. Use a pillbox or chart to help remind you to take your medications. Please let your doctor or nurse know if you have problems taking your medications. Medication/Strength Dose Route Frequency Indications/Special Instructions/Comments tramadol (tramadol 50 mg oral tablet) 100 mg Oral every 6 hours as needed for Pain cyclobenzaprine (Flexeril 10 mg oral tablet) 10 mg Oral three times a day as needed for Muscle spasm amitriptyline (Elavil 25 mg oral tablet) See Instructions 1 po at HS x 1 week, then increase to 2 poat HS. adapalene topical (Differin 0.1% topical cream) 1 carine Topical once a day (at bedtime) clindamycin-benzoyl peroxide topical (BenzaClin with pump topical gel) 1 carine Topical two times a day sumatriptan (Imitrex 50 mg oral tablet) 50 mg Oral once as needed for Migraine headache repeat afterone hour if needed minocycline (minocycline 100 mg oral tablet) 100 mg Oral once a day Acne ipratropium-albuterol (Combivent inhalation aerosol with adapter) 2 puff(s) Inhalation four times a day Reactive airway. Attention: If you have any medications at home that are not on this list, DO NOT take them until youcontact your provider for clarification. Your Allergies & Intolerances Substance Reaction Symptoms Category Comments NKA Drug Your Problem List Problem Status Onset Comments Left kidney Active 04/14/2003 function 12% date unknown Acne vulgaris Active 02/13/2011 Headache Active 2010 Your Recommendations We want to make sure [...] Health Assessment every 1 year 04/03/2011 04/02/2012 Lipid Panel every 5 years Age 20-75 06/20/2011 Checks blood for good (HDL) and bad (LDL) cholesterol. Know your numbers, they are one indicator of your risk for heart attack and stroke. Vaccine: Tetanus every 10 years 07/27/2006 07/24/2016 Immunization to help prevent you from getting the serious disease Tetanus (Lockjaw). Your Upcoming Appointments Date Time Location Reason Provider No Appointments found Your Goals/Additional instructions: Source: [facility] POWERCHART Document Id: [id number] ING SERVICE DIRECTOR Miscellaneous - Kristine Al M.D. - 06/20/2011 12:55 PM NURSING SERVICE DIRECTOR Ambulatory Depart Summary [place] [id number] [place] [address] Visit Information Name: CHERRY CHEN Visit Date: 06/20/2011 12:55:12 Attending Provider: KRISTINE WYNN MD Primary Care Provider: SOFIE GARCIA SPORTS INSTRUCTOR CHERRY CHEN has been given the following list of medications: Your Medications It is important to take your medications as directed. Use a pill box or chart to help remind you to take your medications. Please let your doctor or nurse know if you have problems taking your medications. Medication/Strength Dose Route Frequency Indications/Special Instructions/Comments tramadol (tramadol 50 mg oral tablet) 100 mg Oral every 6 hours as needed for Pain cyclobenzaprine (Flexeril 10 mg oral tablet) 10 mg Oral three times a day as needed for Muscle spasm amitriptyline (Elavil 25 mg oral tablet) See Instructions 1 po at HS x 1 week, then increase to 2 poat HS. adapalene topical (Differin 0.1% topical cream) 1 carine Topical once a day (at bedtime) clindamycin-benzoyl peroxide topical (BenzaClin with pump topical gel) 1 carine Topical two times a day sumatriptan (Imitrex 50 mg oral tablet) 50 mg Oral once as needed for Migraine headache repeat afterone hour if needed minocycline (minocycline 100 mg oral tablet) 100 mg Oral once a day Acne ipratropium-albuterol (Combivent inhalation aerosol with adapter) 2 puff(s) Inhalation four times a day Reactive airway. Attention: If you have any medications at home that are not on this list, DO NOT take them until youcontact your provider for clarification. Additional Information: Source: [facility] POWERCHART Document Id: [id number] ING SERVICE DIRECTOR Miscellaneous - Nell Miller, L.P.N. - 06/20/2011 12:33 PM CST Adult Beach Attendant Intake/History Adult Beach Attendant Intake/History Entered On: 06/20/2011 12:38 NURSING SERVICE DIRECTOR Performed On: 06/20/2011 12:33 NURSING SERVICE DIRECTOR by NELL MILLER TELEPHONE ANSWERER, RT Intake Chief Complaint : concerned about pain left side of neck x 2 weeks after playing at park with daughter. Temperature Core : 37C(Converted to: 98.6DegF) Peripheral Pulse Rate : 89/min Respiratory Rate : 16/min Heart Rhythm : Regular Systolic Blood Pressure : 112mmHg Diastolic Blood Pressure : 52mmHg NIBP Mean : 72mmHg BP Location : Left upper extremity SpO2 : 98% Oxygen Therapy : Room air Actual Weight : 100.4kg(Converted to: 221lb 6oz) Weight Source : Standing scale Dosing Weight Clinic : 100.40kg NELL MILLER LPN, RT - 06/20/2011 12:33 NURSING SERVICE DIRECTOR General Info Information Given By : Patient Preferred Communication Mode : Verbal Languages : Burmese NELL MILLER LPN, - 06/20/2011 12:33 NURSING SERVICE DIRECTOR Subjective Pain Symptoms : No NELL MILLER LPN, 06/20/2011 12:33 NURSING SERVICE DIRECTOR Dependent Habits Tobacco Use/Currently Using : Yes Exposure to Tobacco Smoke : Patient smokes Smoking Status : Smoker NELL MILLER LPN, RT - 06/20/2011 12:33 NURSING SERVICE DIRECTOR Tobacco Use Grid Type : Cigarettes Cigarette Use Packs/Day : 0.5 NELL MILLER LPN, RT 06/20/2011 12:33 NURSING SERVICE DIRECTOR Caffeine Use Grid Caffeine Use : None NELL MILLER LPN, 06/20/2011 12:33 NURSING SERVICE DIRECTOR Recreational Drug Use Grid Drug Use : None NELL MILLER LPN, 06/20/2011 12:33 NURSING SERVICE DIRECTOR Allergy Allergies (Active) NKA Estimated Onset Date: Unspecified ; Created By: SKIP SCHWARTZ LPN; Reaction Status: Active ; Category: Drug ; Substance: NKA ; Type: Allergy ; Updated By: SKIP SCHWARTZ LPN; Reviewed Date: 06/20/2011 12:32 NURSING SERVICE DIRECTOR Source: [facility] POWERCHART Document Id: [id number] NURSING SERVICE DIRECTOR!36 ING SERVICE DIRECTOR documented in this encounter Plan of Treatment Not on filedocumented as of this encounter Visit Diagnoses Not on filedocumented in this encounter
--- OUTSIDE RECORDS SUMMARY | 2021-11-21 03:06 | XMS_ITS | Encounter Summary ---
:1990 Author Organization [facility] Address [address] [place] [address] Care Team Providers Name Role Phone Unavailable Primary Care Provider Unavailable Encounter Details Date Type Department Care Team Description 04/13/2009 Hospital Encounter HX [facility] IN[facility]/OBSRV Jarred Montes M.D. [address] [place], [place] [address] (Wo rk) Social History Tobacco Use Types Packs/Day Years Used Date Smoking Tobacco: Never Assessed Sex Assigned at Date Recorded Not on file documented as of this encounter Plan of Treatment Not on filedocumented as of this encounter Visit Diagnoses Not on filedocumented in this encounter
--- OUTSIDE RECORDS SUMMARY | 2021-11-21 03:06 | XMS_ITS | Encounter Summary ---
:1990 Author Organization [facility] Address [address] [place] [address] Care Team Providers Name Role Phone Unavailable Primary Care Provider Unavailable Encounter Details Date Type Department Care Team Description 03/01/2011 Hospital Encounter HX [facility] [place] Raj Miller, N.P. [address] [place] [phone] (Wo rk) Social History Tobacco Use Types Packs/Day Years Used Date Smoking Tobacco: Never Assessed Sex Assigned at Date Recorded Not on file documented as of this encounter Progress Notes Sofie Miller, N.P. - 03/01/2011 12:00 AM CST [id number] CHIEF COMPLAINT/REASON FOR VISIT Headache. HISTORY OF PRESENT ILLNESS Diane is a 20-year-old female who is here today with complaints of headaches for the past two weeks. She states that her headaches have been very intense usually located on the right side of her head, have a pulsating quality to them, and have been accompanied by nausea. She states in addition she has noticed that she is sensitive to sounds and lights. She thinks she could be having migraine headaches. She has had headaches in the past although never really had trouble with migraines. She has been using Tylenol and ibuprofen with little improvement in her symptoms. Diane states that her headache states that her headache has hurt so bad that it is keeping her from sleeping so she has been trying some Tylenol PM as well. She denies any numbness or tingling, visual changes, or loss of muscle control. She does have an Implanon which she reports was placed in November and has had some sleep issues since having that placed but not necessarily headaches. She has limited use of caffeine maybe one pop a day. She reports that although she recently broke up with her boyfriend, he has since returned and they are back living together and it does not seem like she is overly stressed out. CURRENT MEDICATIONS Reviewed. New medication includes Imitrex 50 mg tablets to use as directed. Ambien 10 mg as needed at bedtime. ALLERGIES No known drug allergies. PAST MEDICAL/SURGICAL HISTORY Past medical history is reviewed. No change. Please see EMR. VITAL SIGNS Temperature 36.6, pulse 88, respirations 20, blood pressure 124/70. PHYSICAL EXAMINATION GENERAL: Diane is alert, oriented x3, appears in no acute distress. HEENT: Head is normocephalic, atraumatic. Bilateral TMs are shiny, gay, intact with no erythema or effusion present. Nares are patent. MORGAN. EOMs are intact. Oropharynx is without erythema, exudate, or swelling. NECK: Neck is supple with no lymphadenopathy. No nuchal rigidity is noted. CARDIOVASCULAR: Heart rate is regular; S1-S2 is present. No murmur or rub. LUNGS: Clear to auscultation. NEURO: Cranial nerves II-XII are grossly intact. IMPRESSION/REPORT/PLAN 1. Migraine headaches. 2. Sleep disturbance. PLAN: 1. We will go ahead and prescribe Imitrex 50 mg to be used at onset of headache. She may repeat dose in one hour. Max dose would be two tablets per day. A handout was also given from [employer] discussing migraines. We discussed that there is most likely some type of trigger that is causing her headaches and I have suggested she keep a headache journal. We also discussed trying to limit the use of Tylenol or ibuprofen to prevent rebound headaches. She is to increase her fluid intake. 2. Ambien 10 mg has been prescribed that she can use as needed at bedtime. Purpose, use, and side effects of this medication were covered. 3. Plan will be to see Diane back in approximately [id number] weeks to see how her headaches are doing. At that time if she has not seen any significant improvement would consider doing some labs and trying a daily preventative medication. PATIENT EDUCATION: Ready to learn No apparent learning barriers were identified Learning preferences include listening Explained diagnosis and treatment plan Patient/Child/Caregiver expressed understanding of the content Sofie Miller N.P. /hong Electronically Signed By: SOFIE MILLER ROBOTICS SPECIALIST On: 03/11/2011 10:27 AM Source: [facility] MHSDOLBEYNMANNIERADSYS Document Id: [id number] ICAL OB documented in this encounter Miscellaneous Notes Miscellaneous - Sofie Miller N.P. - 03/01/2011 10:26 AM CST Ambulatory Patient Summary [place] [id number] [place] [address] Visit Information Name: CHERRY CHEN Current Date: 03/01/2011 10:25:58 Primary Care Provider: SOFIE MILLER NP Your Medications Here is a list of your medications. It is important to take your medications as directed. Use a pillbox or chart to help remind you to take your medications. Please let your doctor or nurse know if you have problems taking your medications. Medication/Strength Dose Route Frequency Indications/Special Instructions/Comments zolpidem (Ambien 10 mg oral tablet) 10 [...] every 1 year Females Age 16-24 03/01/2011 Vaccine: Tetanus every 10 years 07/27/2006 07/24/2016 Immunization to help prevent you from getting the serious disease Tetanus (Lockjaw). Your Upcoming Appointments Date Time Location Reason Provider No Appointments found Your Goals/Additional instructions: Source: [facility] [employer] Document Id: [id number] ICAL OB Miscellaneous - Sofie Miller NAtul. - 03/01/2011 10:25 AM CST Ambulatory Depart Summary [address] [address] Visit Information Name: CHERRY CHEN Current Date: 03/01/2011 10:25:57 Primary Care Provider: SOFIE MILLER ROBOTICS SPECIALIST CHERRY CHEN has been given the following list of medications: Your Medications It is important to take your medications as directed. Use a pill box or chart to help remind you to take your medications. Please let your doctor or nurse know if you have problems taking your medications. Medication/Strength Dose Route Frequency Indications/Special Instructions/Comments zolpidem (Ambien 10 mg oral tablet) 10 [...] to the patient and/or family, guardian/caregiver. Source: [facility] [employer] Document Id: [id number] ICAL OB Miscellaneous - Conversion, Historical Provider Ser - 03/01/2011 9:56 AM CLINICAL OB Adult Supplier Specialist Intake/History Adult Supplier Specialist Intake/History Entered On: 03/01/2011 10:00 CLINICAL OB Performed On: 03/01/2011 9:56 CLINICAL OB by MICHAELA GONG LPN Intake Chief Complaint : headaches for two weeks, now migraines, nausea, started fever yesterday has tried ibuprofen and tylenol without relief Temperature Core : 36.6C(Converted to: 97.9DegF) Peripheral Pulse Rate : 88/min Respiratory Rate : 20/min Systolic Blood Pressure : 124mmHg Diastolic Blood Pressure : 70mmHg NIBP Mean : 88mmHg Actual Weight : 97.9kg(Converted to: 215lb 13oz) Dosing Weight Clinic : 97.90kg MICHAELA GONG LPN - 03/01/2011 9:56 CLINICAL OB Subjective Pain Symptoms : Yes MICHAELA GONG LPN - 03/01/2011 9:56 CLINICAL OB Pain Pain Assessment Grid Pain 1 Location : Head Intensity : 7 MICHAELA GONG LPN - 03/01/2011 9:56 CLINICAL OB Dependent Habits Tobacco Use/Currently Using : Yes Exposure to Tobacco Smoke : Patient smokes Smoking Status : Current every day smoker MICHAELA GONG LPN - 03/01/2011 9:56 CLINICAL OB Tobacco Use Grid Type : Cigarettes Cigarette Use Packs/Day : 0.5 MICHAELA GONG LPN - 03/01/2011 9:56 CLINICAL OB Caffeine Use Grid Caffeine Use : None MICHAELA GONG LPN - 03/01/2011 9:56 CLINICAL OB Recreational Drug Use Grid Drug Use : None MICHAELA GONG LPN - 03/01/2011 9:56 CLINICAL OB Allergy Allergies (Active) NKA Estimated Onset Date: Unspecified ; Created By: SKIP SCHWARTZ LPN; Reaction Status: Active ; Category: Drug ; Substance: NKA ; Type: Allergy ; Updated By: SKIP SCHWARTZ LPN; Reviewed Date: 02/13/2011 10:48 CDT Source: [facility] [employer] Document Id: [id number] CLINICAL OB!32 documented in this encounter Plan of Treatment Not on filedocumented as of this encounter Visit Diagnoses Not on filedocumented in this encounter
--- OUTSIDE RECORDS SUMMARY | 2021-11-21 03:06 | XMS_ITS | Encounter Summary ---
:1990 Author Organization [facility] Address [address] [place] [address] Care Team Providers Name Role Phone Unavailable Primary Care Provider Unavailable Encounter Details Date Type Department Care Team Description 01/04/2011 Hospital Encounter HX [facility] [place] Raj Miller, NPedroP. [address] [place] [phone] (Wo rk) Social History Tobacco Use Types Packs/Day Years Used Date Smoking Tobacco: Never Assessed Sex Assigned at Date Recorded Not on file documented as of this encounter Progress Notes Sofie Miller, N.P. - 01/04/2011 12:00 AM CDT [id number] CHIEF COMPLAINT/REASON FOR VISIT Continued cough, feeling worse. HISTORY OF PRESENT ILLNESS Diane is a 20-year-old female who is here today with complaints of not feeling well. She has been sick for approximately two weeks. She was actually seen in our clinic on 22 of December and was diagnosed with a viral upper respiratory infection. Diane states that since that time she thought her symptoms would improve but portion they have actually gotten worse. She states that five days ago she started running fever, her cough worsened and she developed significant nasal and sinus congestion. She also reports she has had a slight headache. She denies any abdominal complaints. Her ears feel as though they are slightly congested. She report purulent drainage from her nose and a productive cough and occasional wheezing. CURRENT MEDICATIONS Medication reviewed. No change. Please see EMR. ALLERGIES 1. No known drug allergies. PAST MEDICAL/SURGICAL HISTORY Past medical history is essentially negative. VITAL SIGNS Temperature 37.0-degrees Centigrade. Pulse 100. Respirations 20. Blood pressure 118/70. O2 SATs 97% on room air. PHYSICAL EXAMINATION IN GENERAL: Diane is alert, oriented x3. She does sound slightly congested , looks pale. HEENT: Head is normocephalic, atraumatic. Right TM shiny gay intact with no erythema or effusion present. Left TM just shows some clear fluid bubbles and slightly distended although there is no erythema. Nasal mucosa erythematous and swollen. Right naris worse than left. She does report some frontal sinus tenderness with palpation. Oropharynx is slightly erythematous. No tonsillar exudate or swelling. NECK: Is supple. No lymphadenopathy. HEART: Heart rate is regular. S1-S2 is present. No murmur or rub. LUNGS: Lungs are generally clear to auscultation. No rhonchi or crackles noted although cough is noted during exam. IMPRESSION/REPORT/PLAN 1. Sinusitis. 2. Bronchitis. PLAN 1. Prescriptions for Augmentin, 875/125 milligrams., one tablet twice daily x10 days was written. I have also written a prescription for a Ventolin inhaler that she can use up to four times a day for the next several days to help with cough and/or wheezing. And lastly a prescription Tussin-X cough syrup has been prescribed, 5 ml., every 12 hours as needed for severe cough. Instructions were to not to mix this with Robitussin with Codeine. 2. She is increase her fluid intake and to try get some rest. 3. She is to follow-up with clinic if signs symptoms are not proving as anticipated. Her questions have been addressed and she is agreeable to this plan of care. PATIENT EDU #1 Patient Education Ready to learn. No apparent learning barriers were identified. Learning preferences include listening. Explained diagnosis and treatment plan. Patient/Child/Caregiver expressed understanding of the content. Sofie Miller NEna /ayan Electronically Signed By: SOFIE MILLER PILE DRIVER OPERATOR BARGE MOUNTED On: 01/11/2011 09:32 AM Source: [facility] MHSDOLBEYNMANNIERADSYS Document Id: [id number] documented in this encounter Miscellaneous Notes Miscellaneous - Sofie Miller N.P. - 01/04/2011 1:36 PM CDT Ambulatory Patient Summary [place] [id number] [place] [address] Visit Information Name: CHERRY CHEN Current Date: 01/04/2011 13:36:43 Primary Care Provider: SOFIE MILLER PILE DRIVER OPERATOR BARGE MOUNTED Your Medications Here is a list of your medications. It is important to take your medications as directed. Use a pillbox or chart to help remind you to take your medications. Please let your doctor or nurse know if you have problems taking your medications. Medication/Strength Dose Route Frequency Indications/Special Instructions/Comments hydrocodone-chlorpheniramine (Tussionex [employer] 10 mg-8 mg/5 mL oral suspension, extended release) 5 mL Oral every 12 hours as needed for cough albuterol (Ventolin HFA 90 mcg/inh inhalation aerosol) 2 puff(s) Inhalation every 4 hours as needed for Shortness of breath / Wheezing amoxicillin-clavulanate (Augmentin 875 mg oral tablet) 1 tab(s) Oral two times a day for 10 Days codeine-guaifenesin (codeine-guaifenesin 10 mg-100 mg/5 ml oral [...] Chlamydia every 1 year Females Age 16-24 01/04/2011 Vaccine: Tetanus every 10 years 07/27/2006 07/24/2016 Immunization to help prevent you from getting the serious disease Tetanus (Lockjaw). Your Upcoming Appointments Date Time Location Reason Provider No Appointments found Your Goals/Additional instructions: Source: [place] Document Id: [id number] Electronically signed by Conversion, [facility] Checkering Machine Adjuster [id number] at 09/15/2016 2:38 PM CDT Miscellaneous - Sofie Miller NPedroP. - 01/04/2011 1:36 PM CDT Ambulatory Depart Summary [address] [address] Visit Information Name: CHERRY CHEN Current Date: 01/04/2011 13:36:42 Primary Care Provider: SOFIE MILLER PILE DRIVER OPERATOR BARGE MOUNTED CHERRY CHEN has been given the following list of medications: Your Medications It is important to take your medications as directed. Use a pill box or chart to help remind you to take your medications. Please let your doctor or nurse know if you have problems taking your medications. Medication/Strength Dose Route Frequency Indications/Special Instructions/Comments hydrocodone-chlorpheniramine (Tussionex [employer] 10 mg-8 mg/5 mL oral suspension, extended release) 5 mL Oral every 12 hours as needed for cough albuterol (Ventolin HFA 90 mcg/inh inhalation aerosol) 2 puff(s) Inhalation every 4 hours as needed for Shortness of breath / Wheezing amoxicillin-clavulanate (Augmentin 875 mg oral tablet) 1 tab(s) Oral two times a day for 10 Days codeine-guaifenesin (codeine-guaifenesin 10 mg-100 mg/5 ml oral syrup) 5 mL Oral every 4 hours as needed for cough clindamycin-benzoyl peroxide topical (BenzaClin with pump topical gel) 1 carine Topical two times a day Additional Information: Yes - Current list of reconciled medications is provided and explained to the patient and/or family, guardian/caregiver. [facility]: [facility] Document Id: [id number] Electronically signed by Conversion, [facility] Checkering Machine Adjuster [id number] at 09/15/2016 2:38 PM CDT Miscellaneous - Nguyen Evans L.P.N. - 01/04/2011 1:00 PM CDT Adult Wink Cutter Operator Intake/History Adult Wink Cutter Operator Intake/History Entered On: 01/04/2011 13:04 CDT Performed On: 01/04/2011 13:00 CDT by NGUYEN EVANS LPN Intake Chief Complaint: Was seen 2 weeks ago for cough/bronchitis symptoms. Now has sinus congestion, coughand fever. Feeling worse. Temperature Core: 37.0C(Converted to: 98.6DegF) Peripheral Pulse Rate: 100/min Respiratory Rate: 20/min Systolic Blood Pressure: 118mmHg Diastolic Blood Pressure: 70mmHg NIBP Mean: 86mmHg BP Location: Left upper extremity SpO2: 97% Heart Rhythm: Regular Actual Weight: 98.900kg(Converted to: 218lb 1oz) Weight Source: Standing scale Dosing Weight Clinic: 98.90kg NGUYEN EVANS LPN - 01/04/2011 13:00 CDT Subjective Pain Symptoms: No NGUYEN EVANS LPN - 01/04/2011 13:00 CDT Dependent Habits Tobacco Use/Currently Using: Yes Tobacco Use/Advised to Quit: Yes Exposure to Tobacco Smoke: Patient smokes NGUYEN EVANS LPN - 01/04/2011 13:00 CDT Tobacco Use Grid Type: Cigarettes Cigarette Use Packs/Day: 0.5 NGUYEN EVANS LPN - 01/04/2011 13:00 CDT Caffeine Use Grid Caffeine Use: None NGUYEN EVANS LPN - 01/04/2011 13:00 CDT Recreational Drug Use Grid Drug Use: None NGUYEN EVANS LPN - 01/04/2011 13:00 CDT Allergy Allergies (Active) NKA Estimated Onset Date: Unspecified ; Created By: SKIP SCHWARTZ LPN; Reaction Status: Active ; Category: Drug ; Substance: NKA ; Type: Allergy ; Updated By: SKIP SCHWARTZ LPN; Reviewed Date: 01/04/2011 13:00 CDT Source: [facility] [employer] Document Id: [id number] CDT!31 documented in this encounter Plan of Treatment Not on filedocumented as of this encounter Visit Diagnoses Not on filedocumented in this encounter
--- OUTSIDE RECORDS SUMMARY | 2021-11-21 03:06 | XMS_ITS | Encounter Summary ---
:1990 Author Organization [facility] Address [address] [place] [address] Care Team Providers Name Role Phone Unavailable Primary Care Provider Unavailable Encounter Details Date Type Department Care Team Description 04/24/2009 Hospital Encounter HX [facility] Artem Schneider, INPT/OBSRV M.DPedro [address] [place] [address] [phone] (Wo rk) Social History Tobacco Use Types Packs/Day Years Used Date Smoking Tobacco: Never Assessed Sex Assigned at Date Recorded Not on file documented as of this encounter Plan of Treatment Not on filedocumented as of this encounter Visit Diagnoses Not on filedocumented in this encounter
--- OUTSIDE RECORDS SUMMARY | 2021-11-21 03:06 | XMS_ITS | Encounter Summary ---
:1990 Author Organization [facility] Address [address] [place] [address] Care Team Providers Name Role Phone Unavailable Primary Care Provider Unavailable Encounter Details Date Type Department Care Team Description 07/25/2010 Hospital Encounter [facility] Raj Miller, N.P. [address] [place] [phone] (Wo rk) Social History Tobacco Use Types Packs/Day Years Used Date Smoking Tobacco: Never Assessed Sex Assigned at Date Recorded Not on file documented as of this encounter Progress Notes Sofie Miller, N.P. - 07/25/2010 12:00 AM CDT [id number] CHIEF COMPLAINT/REASON FOR VISIT: Sore throat. HISTORY OF PRESENT ILLNESS Cherry is a 20-year-old female who is here today with her 9-month-old with concerns about being exposed to strep throat. She reports that she has had a sore throat now for five days and she was exposed to strep throat over this past weekend. She states she has also noted on the left side of her throat that there has been a little bit of a lump. She denies any fever, headache. She otherwise has been feeling fine. CURRENT MEDICATIONS 1. No routine medications. ALLERGIES 1. No known drug allergies PAST MEDICAL HISTORY Essentially negative. VITAL SIGNS: Temperature 37 pulse 80, respirations 18, blood pressure 110/60. PHYSICAL EXAMINATION GENERAL: Alert, oriented x3, appears in no acute distress. HEENT: Head is normocephalic, atraumatic. TMs shiny gay intact. No erythema or effusion is present. Nares are patent with no sinus tenderness. Pharynx is just slightly erythematous. There does appear to be is slightly vesicular lesion noted on the left tonsillar arch, this is fairly small with no erythema, or spreading out from this. Tonsils are not swollen. There is no exudate. Neck is supple with no lymphadenopathy. HEART rate is regular S1-S2 is present. There is no murmur or rub. LUNGS: Clear to auscultation. Diagnostics 1. Rapid strep test is negative. IMPRESSION/REPORT/PLAN: 1. Sore throat. Plan 1. I discussed with Diane that her strep test was negative and that most likely her throat was caused by some type of viral infection. I have encouraged her to do some salt water gargles, may take Tylenol, ibuprofen as needed for pain or fever. She can certainly follow up with me if her signs and symptoms are not improving as anticipated or if the vesicular lesion in her throat does not resolve. Her questions have been addressed and she is agreeable to this plan of care. #1 Patient Education Ready to learn No apparent learning barriers were identified Learning preferences include listening Explained diagnosis and treatment plan Patient expressed understanding of the content Sofie Miller N.P. /karli Electronically Signed By: SOFIE MILLER PHYSICAL METEOROLOGIST On: 07/28/2010 08:51 Source: [facility] [employer] Document Id: [id number] documented in this encounter Miscellaneous Notes Miscellaneous - Sofie Miller N.P. - 07/25/2010 3:30 PM CDT Ambulatory Patient Summary [facility] [place] [id number] [place] [address] Visit Information Name: CHERRY CHEN Current Date: 07/25/2010 15:30:16 Primary Care Provider: SOFIE MILLER NP Your Medications Here is a list of your medications. It is important to take your medications as directed. Use a pillbox or chart to help remind you to take your medications. Please let your doctor or nurse know if you have problems taking your medications. Medication/Strength Dose Route Frequency Indications/Special Instructions/Comments No Medications found Your Allergies & Intolerances Substance Reaction Symptoms [...] Chlamydia every 1 year Females Age 15-24 07/25/2010 Vaccine: Tetanus every 10 years 07/25/2010 Immunization to help prevent you from getting the seriousdisease Tetanus (Lockjaw). Your Upcoming Appointments Date Time Location Reason Provider No Appointments found Your Goals/Additional instructions: Source: [employer] Document Id: [id number] Deepthi - Sofie Miller, N.P. - 07/25/2010 3:30 PM CDT Ambulatory Depart Summary [facility] [place] [id number] Visit Information Name: CHERRY CHEN Current Date: 07/25/2010 15:30:15 Primary Care Provider: SOFIE MILLER PHYSICAL METEOROLOGIST CHERRY CHEN has been given the following list of medications: Your Medications It is important to take your medications as directed. Use a pill box or chart to help remind you to take your medications. Please let your doctor or nurse know if you have problems taking your medications. Medication/Strength Dose Route Frequency Indications/Special Instructions/Comments No Medications found Additional Information: Yes - Current list of reconciled medications is provided and explained to the patient and/or family, guardian/caregiver. Source: [employer] Document Id: [id number] Miscellaneous - Skip Hopkins L.PDeepali - 07/25/2010 2:55 PM CDT Health Assessment Health Assessment Entered On: 07/25/2010 14:55 CDT Performed On: 07/25/2010 14:55 CDT by SKPI HOPKINS LPN Nutrition Nutrition Risk Factors by History Adult: None SKIP HOPKINS LPN - 07/25/2010 14:55 CDT Functional Current Daily Living Assistance: None SKIP HOPKINS LPN - 07/25/2010 14:55 CDT Dependent Habits Tobacco Use/Currently Using: Yes Exposure to Tobacco Smoke: Patient smokes SKIP HOPKINS LPN - 07/25/2010 14:55 CDT Tobacco Use Grid Type: Cigarettes Cigarette Use Packs/Day: 0.5 SKIP HOPKINS LPN - 07/25/2010 14:55 CDT Caffeine Use Grid Caffeine Use: None SKIP HOPKINS LPN - 07/25/2010 14:55 CDT Recreational Drug Use Grid Drug Use: None SKIP HOPKINS LPN - 07/25/2010 14:55 CDT Psychosocial Domestic Concerns: None SKIP HOPKINS LPN - 07/25/2010 14:55 CDT Advance Directive Advanced Directives: No SKIP HOPKINS LPN - 07/25/2010 14:55 CDT Educ Needs Learning Style Preference Adult Grid Patient: Demonstration Family: Demonstration SKIP HOPKINS LPN - 07/25/2010 14:55 CDT [facility] Document Id: [id number] CDT!26 Miscellaneous - Skip Hopkins L.PPedroNPedro - 07/25/2010 2:52 PM CDT Adult Curtain Cutter Hand Intake/History Adult Curtain Cutter Hand Intake/History Entered On: 07/25/2010 14:55 CDT Performed On: 07/25/2010 14:52 CDT by SKIP HOPKINS LPN Intake Chief Complaint: Left side throat discomfort and lump Onset of Symptoms: 3 days ago Temperature Core: 37.0C(Converted to: 98.6DegF) Peripheral Pulse Rate: 80/min Respiratory Rate: 18/min Systolic Blood Pressure: 110mmHg Diastolic Blood Pressure: 60mmHg NIBP Mean: 77mmHg BP Location: Left upper extremity Heart Rhythm: Regular SKIP HOPKINS LPN - 07/25/2010 14:52 CDT Subjective Pain Symptoms: Yes SKIP HOPKINS LPN - 07/25/2010 14:52 CDT Pain Pain Assessment Grid Pain 1 Location: Throat Laterality: Left Intensity: 4 SKIP HOPKINS LPN - 07/25/2010 14:52 CDT Dependent Habits Tobacco Use/Currently Using: Yes Tobacco Use/Advised to Quit: Yes Exposure to Tobacco Smoke: Patient smokes SKIP HOPKINS [facility] - 07/25/2010 14:52 CDT Tobacco Use Grid Type: Cigarettes Cigarette Use Packs/Day: 0.5 SKIP HOPKINS LPN - 07/25/2010 14:52 CDT Alcohol Use: No SKIP HOPKINS LPN - 07/25/2010 14:52 CDT Caffeine Use Grid Caffeine Use: None SKIP HOPKINS LPN 07/25/2010 14:52 CDT Recreational Drug Use Grid Drug Use: None SKIP HOPKINS LPN 07/25/2010 14:52 CDT Allergies Source: [facility] [employer] Document Id: [id number] CDT!35 documented in this encounter Plan of Treatment Not on filedocumented as of this encounter Visit Diagnoses Not on filedocumented in this encounter
--- OUTSIDE RECORDS SUMMARY | 2021-11-21 03:06 | XMS_ITS | Encounter Summary ---
:1990 Author Organization [facility] Address [address] [place] [address] Care Team Providers Name Role Phone Unavailable Primary Care Provider Unavailable Encounter Details Date Type Department Care Team Description 10/24/2010 Hospital Encounter [facility] Flora Villa P.A.-C. [address] [place] [phone] (Wo rk) Social History Tobacco Use Types Packs/Day Years Used Date Smoking Tobacco: Never Assessed Sex Assigned at Date Recorded Not on file documented as of this encounter Progress Notes Edita Villa - 10/24/2010 12:00 AM CDT [id number] CHIEF COMPLAINT/REASON FOR VISIT This is a 20-year-old female seen today concerned about some abdominal pain. She states that it is mostly in the epigastric area starting two days. It came on about 3 o'clock in the afternoon lasting until midnight two days ago. She was able to get to sleep and it was gone when she got up in the morning, however, while it was hurting it seemed to be mostly on the right side, it radiated a bit to the middle of her back that evening. Yesterday, when she woke up, it felt fine but came on again at about 9 o'clock last night. She states that she felt very cool and ended up taking her temperature which was about 101 and it lasted until about 01:00 AM when she was able to get to sleep and then felt better when she got up again this morning. She is actually feeling quite good now, but states when it hurts in the evening it is very painful. She rates it an 8 out of 10. When discussing things that it may be associated with, she states that she really has not been able to find anything. She does admit to having a little bit more heartburn more recently. It does not seem to be associated with food. She states that it just goes away when she goes to sleep. She has tried ibuprofen and Tylenol and they have not seemed to make much difference. She does feel nauseous. She has not thrown up. She denies any diarrhea, no constipation. She states that she had a normal BM about an hour ago. She has not changed her diet. She eats burritos and has been eating burritos and sandwiches and states that it has been normal. She really does not have much significant past medical history. 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 She has had her tonsils out and PE tubes placed but no abdominal surgery. She states that her last menstrual period was in September. She was actually due for it about five days ago and she is late. She is sexually active and is not using control at this time. CURRENT MEDICATIONS BenzaClin topical gel. ALLERGIES No known drug allergies. PAST MEDICAL/SURGICAL HISTORY Past medical history and surgical history were reviewed in the EMR. VITAL SIGNS Temperature 37.0 degreesC, heart rate 86, respiratory rate 20, blood pressure 120/60. SOCIAL HISTORY States that she has smoked in the last year, but is not currently smoking, PHYSICAL EXAMINATION General: She is alert, interactive, and cooperative. Appears to be well-nourished, well-hydrated, and in no acute distress. Head is normocephalic, atraumatic. TMs are clear with normal landmarks, normal light reflex. Canals are clear. Sclerae and conjunctive are clear. Pupils are equal, round, and reactive to light and accommodation. Extra ocular muscles are intact. Nares are non-congested. Oral mucosa is pink and moist. Posterior pharynx is nonerythematous. Tonsils are not enlarged. No exudate. Neck is supple, no lymphadenopathy. Lungs sound clear to auscultation bilaterally. No wheezes. HEART: Regular rate and rhythm. Abdomen is soft. She is tender to palpation in the epigastric area as well as in the right upper quadrant. She is really nontender around the umbilicus, but is tender again in both the right and left lower quadrants. No rebound tenderness. Positive bowel sounds. No organomegaly is noted, UA was done and it was normal. A UPT was done and was positive. CBC was done and was normal. I also did do an H-Pylori which is pending, IMPRESSION/REPORT/PLAN 1. approximately five weeks. I instructed her to get started back on her vitamins which she states that she has at home. I told her to avoid smoking and alcohol. Questions were answered. She plans to follow up with [facility] in [place] around 10 weeks or so. We discussed the possibility of miscarriage. 2. Right upper quadrant pain. I still would like to pursue a right upper quadrant ultrasound to rule out any gallstone issues. We also talked about the possibility of her symptoms being from increase acid. We will follow up with her after the results of the ultrasound. PATIENT EDUCATION: Ready to learn No apparent learning barriers were identified Learning preferences include listening Explained diagnosis and treatment plan Patient/Child/Caregiver expressed understanding of the content Edita Villa P.A.-C /hong Electronically Signed By: EDITA VILLA On: 10/24/2010 07:43 PM Source: [facility] MHSDOLBEYNONRADSYS Document Id: [id number] documented in this encounter Miscellaneous Notes Miscellaneous - Edita Villa - 10/24/2010 6:36 PM CDT Ambulatory Patient Summary [address] [address] Visit Information Name: CHERRY CHEN Current Date: 10/24/2010 18:36:40 Primary Care Provider: SOFIE GARCIA NP Your [...] Chlamydia every 1 year Females Age 16-24 10/24/2010 Vaccine: Tetanus every 10 years 07/27/2006 07/24/2016 Immunization to help prevent you from getting the serious disease Tetanus (Lockjaw). Your Upcoming Appointments Date Time Location Reason Provider No Appointments found Your Goals/Additional instructions: Source: [employer] Document Id: [id number] Miscellaneous - Edita Villa - 10/24/2010 6:36 PM CDT Ambulatory Depart Summary [address] [address] Visit Information Name: CHERRY CHEN Current Date: 10/24/2010 18:36:39 Primary Care Provider: SOFIE GARCIA TIMBER TREATING TANK OPERATOR CHERRY CHEN has been given the [...] to the patient and/or family, guardian/caregiver. Source: [employer] Document Id: [id number] Miscellaneous - Skip Hopkins L.PPedroNPedro - 10/24/2010 3:25 PM CDT Health Assessment Health Assessment Entered On: 10/24/2010 15:25 CDT Performed On: 10/24/2010 15:25 CDT by SKIP HOPKINS LPN Nutrition Nutrition Risk Factors by History Adult: None SKIP HOPKINS LPN - 10/24/2010 15:25 CDT Functional Current Daily Living Assistance: None SKIP HOPKINS LPN - 10/24/2010 15:25 CDT Dependent Habits Tobacco Use/Currently Using: No Exposure to Tobacco Smoke: Patient smokes SKIP HOPKINS LPN - 10/24/2010 15:25 CDT Tobacco Use Grid Type: Cigarettes Cigarette Use Packs/Day: 0.5 SKIP HOPKINS LPN - 10/24/2010 15:25 CDT Caffeine Use Grid Caffeine Use: None SKIP HOPKINS LPN - 10/24/2010 15:25 CDT Recreational Drug Use Grid Drug Use: None SKIP HOPKINS LPN - 10/24/2010 15:25 CDT Psychosocial Domestic Abuse Concerns: None SKIP HOPKINS LPN - 10/24/2010 15:25 CDT Advance Directive Advanced Directives: No SKIP HOPKINS LPN - 10/24/2010 15:25 CDT Educ Needs Learning Style Preference Adult Grid Patient: Demonstration Family: Demonstration SKIP HOPKINS LPN - 10/24/2010 15:25 CDT Source: [facility] [employer] Document Id: [id number] CDT!26 Deepthi - Skip Hopkins L.PPedroNPedro - 10/24/2010 3:21 PM CDT Adult Staffing Consultant Intake/History Adult Staffing Consultant Intake/History Entered On: 10/24/2010 15:25 CDT Performed On: 10/24/2010 15:21 CDT by SKIP HOPKINS LPN Intake Chief Complaint: pains mid abdomen off and on worse at night fever 101 last night feels like could pass out Last bm 1 hour ago normal Onset of Symptoms: started friday Temperature Core: 37.0C(Converted to: 98.6DegF) Peripheral Pulse Rate: 86/min Respiratory Rate: 20/min Systolic Blood Pressure: 120mmHg Diastolic Blood Pressure: 60mmHg NIBP Mean: 80mmHg BP Location: Left upper extremity SKIP HOPKINS LPN - 10/24/2010 15:21 CDT Subjective Pain Symptoms: Yes SKIP HOPKINS LPN - 10/24/2010 15:21 CDT Pain Pain Assessment Grid Pain 1 Location: Abdomen (Comment: mid [SKIP HOPKINS LPN - 10/24/2010 15:21 CDT] ) Laterality: Bilateral Intensity: 8 SKIP HOPKINS LPN - 10/24/2010 15:21 CDT Dependent Habits Tobacco Use/Currently Using: No Tobacco Use/Last 12 months: Yes Tobacco Use/Advised to Quit: Yes Exposure to Tobacco Smoke: Patient smokes SKIP HOPKINS LPN - 10/24/2010 15:21 CDT Tobacco Use Grid Type: Cigarettes Cigarette Use Packs/Day: 0.5 SKIP HOPKINS LPN - 10/24/2010 15:21 CDT Alcohol Use: Yes SKIP HOPKINS LPN - 10/24/2010 15:21 CDT Caffeine Use Grid Caffeine Use: None SKIP HOPKINS LPN - 10/24/2010 15:21 CDT Recreational Drug Use Grid Drug Use: None SKIP HOPKINS LPN - 10/24/2010 15:21 CDT Allergy Allergies (Active) NKA Estimated Onset Date: Unspecified ; Created By: SKIP HOPKINS LPN; Reaction Status: Active ; Category: Drug ; Substance: NKA ; Type: Allergy ; Updated By: SKIP HOPKINS LPN; Reviewed Date: 07/25/2010 14:55 CDT Source: [facility] [employer] Document Id: [id number] CDT!35 documented in this encounter Plan of Treatment Not on filedocumented as of this encounter Visit Diagnoses Not on filedocumented in this encounter
--- OUTSIDE RECORDS SUMMARY | 2021-11-21 03:06 | XMS_ITS | Encounter Summary ---
:1990 Author Organization [facility] Address [address] [place] [address] Care Team Providers Name Role Phone Unavailable Primary Care Provider Unavailable Encounter Details Date Type Department Care Team Description 08/31/2008 Hospital Encounter [facility] INPT[facility]OBSRV Nakul Painter M.D. [address] [facility] [address] [place], [place] [phone] (Wo rk) Social History Tobacco Use Types Packs/Day Years Used Date Smoking Tobacco: Never Assessed Sex Assigned at Date Recorded Not on file documented as of this encounter Plan of Treatment Not on filedocumented as of this encounter Visit Diagnoses Not on filedocumented in this encounter
--- OUTSIDE RECORDS SUMMARY | 2021-11-21 03:06 | XMS_ITS | Encounter Summary ---
:1990 Author Organization [facility] Address [address] [place] [address] Care Team Providers Name Role Phone Unavailable Primary Care Provider Unavailable Encounter Details Date Type Department Care Team Description 01/09/2010 Hospital Encounter [facility] INPT/OBSRV China Miller, N.PPedro [address] [place] [phone] (Wo rk) Social History Tobacco Use Types Packs/Day Years Used Date Smoking Tobacco: Never Assessed Sex Assigned at Date Recorded Not on file documented as of this encounter Plan of Treatment Not on filedocumented as of this encounter Visit Diagnoses Not on filedocumented in this encounter
--- OUTSIDE RECORDS SUMMARY | 2021-11-21 03:06 | XMS_ITS | Encounter Summary ---
:1990 Author Organization [facility] Address [address] [place] [address] Care Team Providers Name Role Phone Unavailable Primary Care Provider Unavailable Encounter Details Date Type Department Care Team Description 04/19/2008 Hospital Encounter [facility] INPT/OBSRV Jarred Montes M.D. [address] [place], [place] [address] (Wo rk) Social History Tobacco Use Types Packs/Day Years Used Date Smoking Tobacco: Never Assessed Sex Assigned at Date Recorded Not on file documented as of this encounter Plan of Treatment Not on filedocumented as of this encounter Visit Diagnoses Not on filedocumented in this encounter
--- OUTSIDE RECORDS SUMMARY | 2021-11-21 03:06 | XMS_ITS | Encounter Summary ---
:1990 Author Organization [facility] Address [address] [place] [address] Care Team Providers Name Role Phone Unavailable Primary Care Provider Unavailable Encounter Details Date Type Department Care Team Description 08/18/2008 Hospital Encounter [facility] INPT/OBSRV Jarred Montes M.D. [address] [place], [place] [address] (Wo rk) Social History Tobacco Use Types Packs/Day Years Used Date Smoking Tobacco: Never Assessed Sex Assigned at Date Recorded Not on file documented as of this encounter Plan of Treatment Not on filedocumented as of this encounter Visit Diagnoses Not on filedocumented in this encounter
--- OUTSIDE RECORDS SUMMARY | 2021-11-21 03:07 | XMS_ITS | Encounter Summary ---
:1990 Author Organization [facility] Address [address] [place] [address] Care Team Providers Name Role Phone Unavailable Primary Care Provider Unavailable Encounter Details Date Type Department Care Team Description 06/06/2007 Hospital Encounter [facility] Artem Schneider, INPT/OBSRV M.DPedro [address] [place] [phone] (Wo rk) Social History Tobacco Use Types Packs/Day Years Used Date Smoking Tobacco: Never Assessed Sex Assigned at Date Recorded Not on file documented as of this encounter Plan of Treatment Not on filedocumented as of this encounter Visit Diagnoses Not on filedocumented in this encounter
--- OUTSIDE RECORDS SUMMARY | 2021-11-21 03:07 | XMS_ITS | Encounter Summary ---
:1990 Author Organization [facility] Address [address] [place] [address] Care Team Providers Name Role Phone Unavailable Primary Care Provider Unavailable Encounter Details Date Type Department Care Team Description 04/18/2008 Hospital Encounter [facility] Artem Schneider, INPT/OBSRV M.DPedro [address] [place] [phone] (Wo rk) Social History Tobacco Use Types Packs/Day Years Used Date Smoking Tobacco: Never Assessed Sex Assigned at Date Recorded Not on file documented as of this encounter Plan of Treatment Not on filedocumented as of this encounter Visit Diagnoses Not on filedocumented in this encounter
--- OUTSIDE RECORDS SUMMARY | 2021-11-21 03:07 | XMS_ITS | Encounter Summary ---
:1990 Author Organization [facility] Address [address] [place] [address] Care Team Providers Name Role Phone Unavailable Primary Care Provider Unavailable Encounter Details Date Type Department Care Team Description 08/25/2007 Hospital Encounter [facility] Artem Schneider, INPT/OBSRV M.DPedro [address] [place] [phone] (Wo rk) Social History Tobacco Use Types Packs/Day Years Used Date Smoking Tobacco: Never Assessed Sex Assigned at Date Recorded Not on file documented as of this encounter Plan of Treatment Not on filedocumented as of this encounter Visit Diagnoses Not on filedocumented in this encounter
--- OUTSIDE RECORDS SUMMARY | 2021-11-21 03:07 | XMS_ITS | Encounter Summary ---
:1990 Author Organization [facility] Address [address] [place] [address] Care Team Providers Name Role Phone Unavailable Primary Care Provider Unavailable Encounter Details Date Type Department Care Team Description 07/20/2007 Hospital Encounter [facility] INPT/OBSRV Jarred Montes M.D. [address] [place], [place] [address] (Wo rk) Social History Tobacco Use Types Packs/Day Years Used Date Smoking Tobacco: Never Assessed Sex Assigned at Date Recorded Not on file documented as of this encounter Plan of Treatment Not on filedocumented as of this encounter Visit Diagnoses Not on filedocumented in this encounter
--- OUTSIDE RECORDS SUMMARY | 2021-11-21 03:07 | XMS_ITS | Encounter Summary ---
:1990 Author Organization [facility] Address [address] [place] [address] Care Team Providers Name Role Phone Unavailable Primary Care Provider Unavailable Encounter Details Date Type Department Care Team Description 03/31/2008 Hospital Encounter [facility] Artem Schneider, INPT/OBSRV M.Long [address] [place] [phone] (Wo rk) Social History Tobacco Use Types Packs/Day Years Used Date Smoking Tobacco: Never Assessed Sex Assigned at Date Recorded Not on file documented as of this encounter Plan of Treatment Not on filedocumented as of this encounter Visit Diagnoses Not on filedocumented in this encounter
--- OUTSIDE RECORDS SUMMARY | 2021-11-21 03:07 | XMS_ITS | Encounter Summary ---
:1990 Author Organization [facility] Address [address] [place] [address] Care Team Providers Name Role Phone Unavailable Primary Care Provider Unavailable Encounter Details Date Type Department Care Team Description 06/25/2004 Hospital Encounter HX NO MAPPING Provider, Historical Social History Tobacco Use Types Packs/Day Years Used Date Smoking Tobacco: Never Assessed Sex Assigned at Date Recorded Not on file documented as of this encounter Plan of Treatment Not on filedocumented as of this encounter Visit Diagnoses Not on filedocumented in this encounter
--- OUTSIDE RECORDS SUMMARY | 2021-11-21 03:07 | XMS_ITS | Encounter Summary ---
:1990 Author Organization [facility] Address [address] [place] [address] Care Team Providers Name Role Phone Unavailable Primary Care Provider Unavailable Encounter Details Date Type Department Care Team Description 09/08/2007 Hospital Encounter [facility] INPT/OBSRV Alida Chatterjee M.D. [address] [place], [place] [address] (Wo rk) Social History Tobacco Use Types Packs/Day Years Used Date Smoking Tobacco: Never Assessed Sex Assigned at Date Recorded Not on file documented as of this encounter Plan of Treatment Not on filedocumented as of this encounter Visit Diagnoses Not on filedocumented in this encounter
--- OUTSIDE RECORDS SUMMARY | 2021-11-21 03:07 | XMS_ITS | Encounter Summary ---
:1990 Author Organization [facility] Address [address] [place] [address] Care Team Providers Name Role Phone Unavailable Primary Care Provider Unavailable Encounter Details Date Type Department Care Team Description 05/27/2007 Hospital Encounter [facility] INPT/OBSRV Audra Koch M.D. Social History Tobacco Use Types Packs/Day Years Used Date Smoking Tobacco: Never Assessed Sex Assigned at Date Recorded Not on file documented as of this encounter Plan of Treatment Not on filedocumented as of this encounter Visit Diagnoses Not on filedocumented in this encounter
--- OUTSIDE RECORDS SUMMARY | 2021-11-21 03:07 | XMS_ITS | Encounter Summary ---
:1990 Author Organization [facility] Address [address] [place] [address] Care Team Providers Name Role Phone Unavailable Primary Care Provider Unavailable Encounter Details Date Type Department Care Team Description 03/03/2008 Hospital Encounter [facility]X [facility] INPT/OBSRV [place] [address] Social History Tobacco Use Types Packs/Day Years Used Date Smoking Tobacco: Never Assessed Sex Assigned at Date Recorded Not on file documented as of this encounter Plan of Treatment Not on filedocumented as of this encounter Visit Diagnoses Not on filedocumented in this encounter
--- OUTSIDE RECORDS SUMMARY | 2021-11-21 03:07 | XMS_ITS | Encounter Summary ---
:1990 Author Organization [facility] Address [address] [place] [address] Care Team Providers Name Role Phone Unavailable Primary Care Provider Unavailable Encounter Details Date Type Department Care Team Description 04/10/2007 Hospital Encounter HX [facility] Artem Schneider, INPT/OBSRV M.Long [address] [place] [address] [phone] (Wo rk) Social History Tobacco Use Types Packs/Day Years Used Date Smoking Tobacco: Never Assessed Sex Assigned at Date Recorded Not on file documented as of this encounter Plan of Treatment Not on filedocumented as of this encounter Visit Diagnoses Not on filedocumented in this encounter
--- OUTSIDE RECORDS SUMMARY | 2021-11-21 03:07 | XMS_ITS | Encounter Summary ---
:1990 Author Organization [facility] Address [address] [place] [address] Care Team Providers Name Role Phone Unavailable Primary Care Provider Unavailable Encounter Details Date Type Department Care Team Description 02/16/2007 Hospital Encounter [facility] Artem Schneider, INPT/OBSRV M.Long [address] [place] [address] [phone] (Wo rk) Social History Tobacco Use Types Packs/Day Years Used Date Smoking Tobacco: Never Assessed Sex Assigned at Date Recorded Not on file documented as of this encounter Plan of Treatment Not on filedocumented as of this encounter Visit Diagnoses Not on filedocumented in this encounter
--- OUTSIDE RECORDS SUMMARY | 2021-11-21 03:07 | XMS_ITS | Encounter Summary ---
:1990 Author Organization [facility] Address [address] [place] [address] Care Team Providers Name Role Phone Unavailable Primary Care Provider Unavailable Encounter Details Date Type Department Care Team Description 07/20/2007 Hospital Encounter [facility]X [facility] INPT/OBSRV Jarred Montes M.D. [address] [place], [place] [address] (Wo rk) Social History Tobacco Use Types Packs/Day Years Used Date Smoking Tobacco: Never Assessed Sex Assigned at Date Recorded Not on file documented as of this encounter Plan of Treatment Not on filedocumented as of this encounter Visit Diagnoses Not on filedocumented in this encounter
--- OUTSIDE RECORDS SUMMARY | 2021-11-21 03:07 | XMS_ITS | Encounter Summary ---
:1990 Author Organization [facility] Address [address] [place] [address] Care Team Providers Name Role Phone Unavailable Primary Care Provider Unavailable Encounter Details Date Type Department Care Team Description 07/28/2007 Hospital Encounter [facility] INPT/OBSRV Jarred Montes M.D. [address] [place], [place] [address] (Wo rk) Social History Tobacco Use Types Packs/Day Years Used Date Smoking Tobacco: Never Assessed Sex Assigned at Date Recorded Not on file documented as of this encounter Plan of Treatment Not on filedocumented as of this encounter Visit Diagnoses Not on filedocumented in this encounter
--- OUTSIDE RECORDS SUMMARY | 2021-11-21 03:07 | XMS_ITS | Encounter Summary ---
:1990 Author Organization [facility] Address [address] [place] [address] Care Team Providers Name Role Phone Unavailable Primary Care Provider Unavailable Encounter Details Date Type Department Care Team Description 12/24/2007 Hospital Encounter HX [facility] Artem Schneider, INPT/OBSRV M.DPedro [address] [place] [address] [phone] (Wo rk) Social History Tobacco Use Types Packs/Day Years Used Date Smoking Tobacco: Never Assessed Sex Assigned at Date Recorded Not on file documented as of this encounter Plan of Treatment Not on filedocumented as of this encounter Visit Diagnoses Not on filedocumented in this encounter
--- OUTSIDE RECORDS SUMMARY | 2021-11-21 03:07 | XMS_ITS | Encounter Summary ---
:1990 Author Organization [facility] Address [address] [place] [address] Care Team Providers Name Role Phone Unavailable Primary Care Provider Unavailable Encounter Details Date Type Department Care Team Description 02/24/2008 Hospital Encounter [facility]X [facility] INPT/OBSRV Audra Koch M.D. Social History Tobacco Use Types Packs/Day Years Used Date Smoking Tobacco: Never Assessed Sex Assigned at Date Recorded Not on file documented as of this encounter Plan of Treatment Not on filedocumented as of this encounter Visit Diagnoses Not on filedocumented in this encounter
--- OUTSIDE RECORDS SUMMARY | 2021-11-21 03:07 | XMS_ITS | Encounter Summary ---
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 Source: [facility] [id number] Document Id: [id number] documented in this encounter Plan of Treatment Not on filedocumented as of this encounter Visit Diagnoses Not on filedocumented in this encounter
== END 2021-11-15 18:51 | disposition home or self-care (01) ==
PROVIDERS: PCP Obstetrics & Gynecology; Visit Provider Physician Assistant
DX: N91.2 Amenorrhea, unspecified (principal); E66.9 Obesity, unspecified; L70.9 Acne, unspecified; L68.0 Hirsutism; Z13.6 Encounter for screening for cardiovascular disorders; Z13.1 Encounter for screening for diabetes mellitus
CPT/HCPCS: 80061; 82947; 83498

== ENCOUNTER 2022-06-25 08:10 | Outpatient (CLI) | payer OTHER, SELFPAY ==
--- NOTE | 2022-06-25 08:15 | CRLHL7_ITS ---
For Patients: As a result of the Century Cures Act, medical imaging exams and procedure reports are released immediately into your electronic medical record. You may view this report before your referring provider. If you have questions, please contact your health care provider. INDICATION: irregular bleeding with IUD. known PCOS. COMPARISON: 11/15/2021 TECHNIQUE: 2D gay scale and color Doppler images were acquired of the pelvis using a transabdominal and transvaginal approach. FINDINGS: Sonographic images demonstrate a normal size and smooth outer contour of the uterus. Uterus measures 9.1 cm in length by 3.8 cm in AP diameter by 5.2 cm in transverse dimension. The myometrium has a normal uniform echotexture. IUD is located within the endometrial canal. The endometrial thickness is approximately 6 millimeters. Incidental cervical nabothian cyst is present. The right ovary measures 3.7 x 2.7 x 2.6 cm in size and the left ovary measures 3.4 x 2.4 x 2.4 cm. Multiple ovarian follicles are present bilaterally. The ovaries demonstrate normal arterial and venous blood flow on color Doppler analysis. There are no suspicious fluid collections within the cul-de-sac. IMPRESSION: The IUD is located in good position within the endometrial canal. The endometrium does not appear thickened. PCOS appearance of the ovaries. Dictated by Piyush Drake MD @ 06/25/2022 9:25:24 AM (Electronically Signed)
== END 2022-06-25 08:11 | disposition home or self-care (01) ==
PROVIDERS: PCP Family Medicine; Visit Provider Family Medicine
DX: N93.8 Other specified abnormal uterine and vaginal bleeding (principal)
CPT/HCPCS: 76830; 76856